=== PATIENT | male | born 1945 | race African-American/Black ===

== ENCOUNTER 2016-12-14 13:56 | Observation (INO) | payer MEDICARE, OTHER ==
[~2016-12-14] VITALS: Ht 188 cm; Wt 101.7 kg
[~2016-12-14 13:56] MED LIST: AMANTADINE100 MG PO; AMLODIPINE5 M1 PO; BACLOFEN 10MG T10 MG PO; DEPAKOTE 250MG250 MG PO; DEPAKOTE250 MG PO; GLIPIZIDE/METFO1 TA1 PO; GLUCOVANCE 1.251 TAB PO; LINZESS145 MCG PO; LISINOPRIL10 MG PO; LISINOPRIL40 MG PO; METOPROLOL25 MG PO; MIRALAX(PO17 GM/1 PA PO; NITROFURANTOIN100 M2 PO; RANITIDINE HCL150 MG PO; RISPERDAL 0.50.5 MG OR; SINEMET 25/1001 TAB PO; TAMSULOSIN HCL0.4 MG PO; VITAMIN B121000 MCG PO; VITAMIN D1000 IU PO; WARFARIN SOD5 MG PO; WARFARIN SODIU7.5 MG PO
[2016-12-14 13:59] VITALS: BP 197/98
--- NOTE | 2016-12-14 14:10 | Emergency Room Report ---
History of Present Illness Time Seen by MD Velázquez Presenting Problem in Triage Pt arrived:Wheelchair Presenting Problem:PT ADVISES AROUND NOON HE STARTED SWEATING, FELT LIKE HE WAS GOING TO PASS OUT AND HAD A FUNY SENSATION IN HIS CHEST THT HE FELT WAS MOVING DOWN. HE ADVISES THIS EPISODE LASTED 15-20 MINS. 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 N Clinical Suspician of Infection? N Mental Status: 1 - Regular (Normal Baseline) Sepsis Risk:Low Sepsis Risk Have you (or family members/close friends) recently traveled outside the [place]? N If Yes, where/when: Have you had exposure to infectious disease within the past month? N TB? Other? Specify: Source patient, family () Exam Limitations no limitations Comment Pt is here in the ER for evaluation c/o weakness. Onset this morning while using commode. states he has been sleeping more over the past few days. No fever. History of remote stroke with left sided weakness. No chest pain, sob, abdominal pain. Pt just started Aricept earlier this morning. Pt is straight cathed twice daily since his CVA. No increase in left sided weakness or other neuro deficit. ALLERGIES Coded Allergies: Hydantoins (01/18/16) Iodine and Iodide Containing Produc (01/19/16) phenytoin (01/18/16) Home Medications Active Scripts Amlodipine Besylate (Amlodipine) 5 MG PO DAILY #30 TAB Ref 2 Prov: 07/19/16 Reported Medications CHOLECALCIFEROL (VITAMIN D3) (Vitamin D3) (Unknown Dose) PO DAILY Divalproex Sodium (Depakote) 500 MG PO BID CARBIDOPA/LEVODOPA (Carbidopa-Levodopa 25-100 Tab) 1 TAB PO QID BACLOFEN (Baclofen) 10 MG PO TID Ranitidine Hcl (Ranitidine 150MG) 150 MG PO BID Risperidone (Risperdal 0.5 Mg Tablet) 0.5 MG OR DAILY GLIPIZIDE/METFORMIN HCL (Glipizide-Metformin 2.5-500 MG) 0.5 TAB PO DAILYP PRN DIABETES Amantadine Hcl (Amantadine) 100 MG PO DAILY WARFARIN SOD (Warfarin 5MG) 4 MG PO DAILY Metoprolol Tartrate (Metoprolol) 25 MG PO BID Lisinopril (Lisinopril 40MG) 40 MG PO DAILY #90 TAB TAMSULOSIN HCL (Tamsulosin HCl) 0.4 MG PO QHS #90 CAP History Medical History General CAD? No Angina: No [place]: No Hypertension? Yes Hyperlipidemia? No CHF? No DVT? No PE? No COPD? No Asthma? No Anemia? No GERD? No Gastric ulcers? No GI Bleed? No Hernia? Yes Thyroid Problems? No Hypothyroidism? No CVA? Yes Seizures? Yes Diabetes? Yes Insulin Dependent: No Insulin Pump: No Home FSBS? Yes Renal Insuffiency? No End Stage Renal Disease? No UTI? Yes Stones? Yes BPH? No GB Disease: No Nephritic Syndrome? No Asplenia? No Hepatitis? No Sickle Cell Disease? No Arthritis? Yes Migraines? No Cataracts? No Glaucoma? No MRSA? No HIV? No TB? No Anxiety? No Depression? No Cancer? No More? No Immunization Hx DT/Tetanus > 10 Years Ago Flu 2015-FSN Pneumonia Received In Past Surgical Hx Previous Surgery?Y BLADDER SURGERY TONSILS BLADDER BIOPSY COLECTOMY Family History Family Hx Diabetes Yes CAD Yes Hypertension Yes Hyperlipidemia Yes Cancer No TB No Social History Smoking Hx Smoker: Never Smoker Tobacco: No Packs/day < 1 Pack Alcohol Alcohol: No Review of Systems All Other Systems Reviewed and Negative Constitutional see HPI, denies chills, diaphoresis, denies fever, malaise, weakness Eyes denies no symptoms reported ENT denies: no symptoms reported. Respiratory denies no symptoms reported Cardiovascular denies no symptoms reported Gastrointestinal denies no symptoms reported Genitourinary denies: no symptoms reported. Musculoskeletal see HPI, other (chronic left hemiparesis) Skin denies no symptoms reported Psychiatric/Neurological other (progressive memory loss) Physical Exam Vital Signs Vital Signs Date Time Temp Pulse Resp B/P Pulse O2 O2 Flow FiO2 Ox Delivery Rate 12/14 1732 98.1 56 18 158/87 98 12/14 1655 97.9 56 18 160/98 98 12/14 1525 52 16 166/100 98 12/14 1359 97.2 54 16 197/98 98 General Appearance WD/WN, no apparent distress Eye Exam - bilateral eye normal exam, bilateral eye PERRL, bilateral eye EOMI Ear, Nose, Throat hearing grossly normal, normal ENT inspection Neck normal inspection, non-tender, supple, full range of motion Respiratory Status Yes: trachea midline. No: respiratory distress. Lung Sounds bilateral: normal breath sounds, lungs clear. 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 No Results/Orders Laboratory Tests 12/14/16 1435: Urine Color YELLOW, Urine Appearance SL CLOUDY, Urine pH 6.0, Ur Specific [place] 1.025, Urine Protein TRACE H, Urine Ketones NEGATIVE, Urine Blood 2+ H , Urine Nitrate POSITIVE H, Urine Bilirubin NEGATIVE, Urine Urobilinogen 0.2, Ur Leukocyte Esterase 3+ H, Urine RBC 10-20, Ur Squamous Epith Cells OCC, Urine Bacteria 4+, Urine Glucose NEGATIVE 12/14/16 1415: TSH 1.60 12/14/16 1415: Sodium 142, Potassium 4.0, Chloride 106, Carbon Dioxide 33 H, BUN 12, Creatinine 0.9, Estimated Creat Clear 109, Estimated GFR (MDRD) 83, Glucose 117 H, Calcium 9.1, Total Bilirubin 0.5, AST 10 L, ALT 21, Alkaline Phosphatase 83, Creatine Kinase 94, CK-MB (CK-2) Rel Index 1.0, CK and CKMB Interp 0.9, Troponin I < 0.02, Total Protein 7.6, Albumin 3.2 L, Globulin 4.4 H, Albumin/Globulin Ratio 0.7 L, PT 23.0 H, INR 2.15 H, WBC 6.8, RBC 4.74, Hgb 14.9, Hct 43.3, MCV 91.4, RDW 14.1, Plt Count 157, MPV 6.3 L, Gran % 64.1, Gran # 4.4, Lymphocytes % 28.6, Monocytes % 6.5, Eosinophils % 0.6, Basophils % 0.2, Lymphocytes # 1.9, Monocytes # 0.4, Eosinophils # 0.0, Basophils # 0.0, PUBS MCHC 34.3, MCH 31.4 H Current Medication Orders Sig/Kamini Start time Last Medication Dose Route Stop Time Status Admin Levofloxacin/Dextrose 150 ML ONCE ONE 12/14 1800 CKDr 12/14 IV 12/14 1929 1758 Sodium Chloride 1,000 ML .Q10H 12/14 1800 AC IV 12/15 0600 Levofloxacin/Dextrose 150 ML .STK-MED ONE 12/14 1756 DC IV Clonidine HCl 0 .STK-MED ONE 12/14 1659 DC .ROUTE Clonidine HCl 0.1 MG ONCE ONE 12/14 1600 DC 12/14 PO 12/14 1601 1700 Sodium Chloride 10 ML PRN PRN 12/14 1415 AC IV 12/15 1404 Orders Procedure Date/time Status DIET-NOTHING BY MOUTH 12/14 D Active CULTURE, BLOOD 12/14 1749 Active LACTIC ACID 12/14 1749 Active PROTHROMBIN TIME 12/14 1551 Complete URINALYSIS/COMPLETE 12/14 1537 Complete THYROID STIMULATING HORMONE 12/14 1537 Complete CULTURE, URINE 12/14 1435 Active ELECTROCARDIOGRAM REQUEST 12/[address] HEAD REQ 12/14 1404 Active IV SALINE LOCK 12/14 1404 Active CBC WITH AUTO DIFF 12/14 1404 Complete CARDIAC ENZYMES 12/14 1404 Complete CHEM 12 PROFILE 12/14 1404 Complete 12 LEAD EKG-[facility] (INITIAL) 12/14 1400 Active 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 CT head CT interpretation by discussed w/radiologist (radiologist report) Comment IMPRESSION: 1. No change from 07/18/2016 with no acute intracranial findings. 2. Atrophy with chronic ischemic changes with an old right cerebellar infarction and asymmetric unilateral atrophy of the right cerebral hemisphere with right lateral ventricle enlargement as before Departure Departure Time of Disposition 1756 Disposition Still a Patient Clinical Impression Primary Impression: Acute urinary tract infection Secondary Impressions: Generalized weakness Condition STABLE Referrals Zay WHITESIDE,A.C. (Family) Discharge Counseling Counseled pt/family regarding diagnosis, test results, Results of work up, diagnosis and care plan discussed with pt and family. They understand. All questions answered. Pt will now be admitted. ED Critical Care Critical Care No at 1800
[2016-12-14 14:25] LABS: HEMOGLOBIN 14.9 g/dL (14.1-18.0); LYMPH # 1.9 K/mm3 (0.7-4.5); LYMPH % 28.6 % (10-50)
--- NOTE | 2016-12-14 14:49 | RADIOLOGY REPORT PS360 ---
CT HEAD W/O CONTRAST HISTORY: Near syncope NEAR SYNCOPE ORDERING PHYSICIAN: PATIENT AGE: 71 years COMPARISON: 07/18/2016 TECHNIQUE: Axial images obtained without contrast. Brain and bone windows reviewed. FINDINGS: Encephalomalacic changes are present in the right inferior cerebellum consistent with an old infarction. There is generalized atrophy with hypoattenuation of periventricular region consistent with ischemic gliotic change from microvascular disease. Asymmetrical enlargement noted of the right lateral ventricle similar to the previous exam consistent with unilateral right atrophy. Patient does have a history of right carotid occlusion. No midline shift, mass effect, intracranial hemorrhage, or hydrocephalus is evident with no significant change compared to the previous exam. No acute calvarial abnormality or sinus air-fluid level or mastoid effusion. IMPRESSION: 1. No change from 07/18/2016 with no acute intracranial findings. 2. Atrophy with chronic ischemic changes with an old right cerebellar infarction and asymmetric unilateral atrophy of the right cerebral hemisphere with right lateral ventricle enlargement as before
[2016-12-14 14:54] LABS: BUN 12 mg/dL (7-18); GFR (ESTIMATED) 83 ML/MIN (>60)
--- NOTE | 2016-12-14 15:28 | RADIOLOGY REPORT PS360 ---
CHEST-AP VIEW ONLY HISTORY: NEAR SYNCOPE ORDERING PHYSICIAN: June SANTIAGO III PATIENT AGE: 71 years COMPARISON: 07/18/2016 FINDINGS: The cardiomediastinal silhouette and pulmonary vascularity are within normal limits. The lungs are clear without infiltrates, suspicious nodules, or pleural effusions. No acute bony abnormalities. IMPRESSION: No acute finding
[2016-12-14 16:41] LABS: URINE BILIRUBIN - DIPSTICK NEGATIVE (NEG); URINE BLOOD 2+ (NEG)
[2016-12-14 16:46] LABS: URINE SQUAMOUS CELLS OCC #/hpf (OCC)
[2016-12-14 18:51] VITALS: BP 172/91
[2016-12-14 19:50] VITALS: BP 172/91
[2016-12-14 20:07] VITALS: BP 149/77
[2016-12-14] MEDS ORDERED: MIRALAX17 GM/PACK PO (20:12)
[2016-12-14] MEDS ORDERED: ARICEPT 5MG TAB5 MG PO (20:15)
[2016-12-14 23:48] VITALS: BP 150/72
[2016-12-15 04:13] VITALS: BP 179/82
[2016-12-15 06:21] LABS: HEMOGLOBIN 14.6 g/dL (14.1-18.0); LYMPH # 2.3 K/mm3 (0.7-4.5); LYMPH % 38.5 % (10-50)
[2016-12-15 06:42] LABS: BUN 9 mg/dL (7-18)
[2016-12-15 06:43] LABS: GFR (ESTIMATED) 74 ML/MIN (>60)
--- NOTE | 2016-12-15 07:31 | Discharge Summary Standard ---
Demographics: Admit date: 12/14/16 Chief complaint: Weakness and fatigue PRIMARY DIAGNOSIS: ACUTE UTI Allergies: Coded Allergies: Hydantoins (01/18/16) Iodine and Iodide Containing Produc (01/19/16) phenytoin (01/18/16) History of present illness: History of present illness: 71-year-old white male with history of previous stroke disease and urinary retention issues to does require intermittent catheterization who came to the emergency room because of weakness. Lab workup and exam workup was unremarkable with the exception of evidence of urinary tract infection and given his weakness and fatigue he was admitted overnight for serial cardiac enzymes and IV antibiotics. This morning he states that he feels much better. Eating breakfast well Past medical history: Family HX Diabetes Yes CAD Yes Hypertension Yes Hyperlipidemia Yes Cancer No TB No Immunization HX DT/Tetanus > 10 Years Ago Flu 2015-FSN Pneumonia Received In Past TB Test in last year Yes Result Negative General CAD? No Angina: No PR: No Hypertension? Yes Hyperlipidemia? No CHF? No DVT? No PE? No COPD? No Asthma? No Anemia? No GERD? No Gastric ulcers? No GI Bleed? No Hernia? Yes Thyroid Problems? No Hypothyroidism? No CVA? Yes Seizures? Yes Diabetes? Yes Insulin Dependent: No Insulin Pump: No Home FSBS? Yes Renal Insuffiency? No UTI? Yes Stones? Yes BPH? No GB Disease: No Nephritic Syndrome? No Asplenia? No Hepatitis? No Sickle Cell Disease? No Arthritis? Yes Migraines? No Cataracts? No Glaucoma? No MRSA? No HIV? No TB? No Anxiety? No Depression? No Cancer? No More? No Past Surgical HX Previous Surgery?Y BLADDER SURGERY TONSILS BLADDER BIOPSY COLECTOMY Current home meds: Active Scripts Amlodipine Besylate (Amlodipine) 5 MG PO DAILY #30 TAB Ref 2 Prov: 07/19/16 Reported Medications CHOLECALCIFEROL (VITAMIN D3) (Vitamin D3) (Unknown Dose) PO DAILY Divalproex Sodium (Depakote) 500 MG PO BID CARBIDOPA/LEVODOPA (Carbidopa-Levodopa 25-100 Tab) 1 TAB PO QID BACLOFEN (Baclofen) 10 MG PO TID Ranitidine Hcl (Ranitidine 150MG) 150 MG PO BID Risperidone (Risperdal 0.5 Mg Tablet) 0.5 MG OR DAILY GLIPIZIDE/METFORMIN HCL (Glipizide-Metformin 2.5-500 MG) 0.5 TAB PO DAILYP PRN DIABETES Amantadine Hcl (Amantadine) 100 MG PO DAILY Polyethylene Glycol 3350 (Miralax) 17 GM PO DAILY 1 Days DONEPEZIL HCL (Aricept 5MG) 5 MG PO QHS #2 WARFARIN SOD (Warfarin 5MG) 4 MG PO DAILY Metoprolol Tartrate (Metoprolol) 25 MG PO BID Lisinopril (Lisinopril 40MG) 40 MG PO DAILY #90 TAB TAMSULOSIN HCL (Tamsulosin HCl) 0.4 MG PO QHS #90 CAP Social Hx: Smoking HX Tobacco No Packs/day < 1 PACK Are you/the child exposed to second-hand smoke: No Alcohol Alcohol: No Hx of Drug Use Drug Use? No Patien't marital status is Patient's support system is poor Review of systems: Constitutional malaise, weakness. Respiratory No: no symptoms reported. Cardiovascular No no symptoms reported Gastrointestinal/Abdominal nausea, poor appetite Genitourinary see HPI. Musculoskeletal No: no symptoms reported. Neurological No: see HPI. Exam: Lab data for last 24 hours: Laboratory Tests 12/15/16 0555: Sodium 141, Potassium 4.1, Chloride 106, Carbon Dioxide 31, BUN 9, Creatinine 1.0, Estimated Creat Clear 97, Estimated GFR (MDRD) 74, Glucose 109 H, Calcium 8.9, Total Bilirubin 0.5, AST 9 L, ALT 17, Alkaline Phosphatase 75, Creatine Kinase 121, CK-MB (CK-2) Rel Index 1.0, CK and CKMB Interp 1.2, Troponin I < 0.02, Total Protein 6.9, Albumin 2.8 L, Globulin 4.1 H, Albumin/Globulin Ratio 0.7 L, WBC 6.0, RBC 4.72, Hgb 14.6, Hct 42.6, MCV 90.2, RDW 13.9, Plt Count 169 , MPV 6.1 L, Gran % 53.8, Gran # 3.2, Lymphocytes % 38.5, Monocytes % 6.6, Eosinophils % 1.1, Basophils % 0.1, Lymphocytes # 2.3, Monocytes # 0.4, Eosinophils # 0.1, Basophils # 0.0, PUBS MCHC 34.2, MCH 30.8 12/14/16 2143: POC Glucose 119 H 12/14/16 1800: Lactic Acid 1.9 12/14/16 1435: Urine Color YELLOW, Urine Appearance SL CLOUDY, Urine pH 6.0, Ur Specific [place] 1.025, Urine Protein TRACE H, Urine Ketones NEGATIVE, Urine Blood 2+ H , Urine Nitrate POSITIVE H, Urine Bilirubin NEGATIVE, Urine Urobilinogen 0.2, Ur Leukocyte Esterase 3+ H, Urine RBC 10-20, Ur Squamous Epith Cells OCC, Urine Bacteria 4+, Urine Glucose NEGATIVE 12/14/16 1415: TSH 1.60 12/14/16 1415: Sodium 142, Potassium 4.0, Chloride 106, Carbon Dioxide 33 H, BUN 12, Creatinine 0.9, Estimated Creat Clear 109, Estimated GFR (MDRD) 83, Glucose 117 H, Calcium 9.1, Total Bilirubin 0.5, AST 10 L, ALT 21, Alkaline Phosphatase 83, Creatine Kinase 94, CK-MB (CK-2) Rel Index 1.0, CK and CKMB Interp 0.9, Troponin I < 0.02, Total Protein 7.6, Albumin 3.2 L, Globulin 4.4 H, Albumin/Globulin Ratio 0.7 L, PT 23.0 H, INR 2.15 H, WBC 6.8, RBC 4.74, Hgb 14.9, Hct 43.3, MCV 91.4, RDW 14.1, Plt Count 157, MPV 6.3 L, Gran % 64.1, Gran # 4.4, Lymphocytes % 28.6, Monocytes % 6.5, Eosinophils % 0.6, Basophils % 0.2, Lymphocytes # 1.9, Monocytes # 0.4, Eosinophils # 0.0, Basophils # 0.0, PUBS MCHC 34.3, MCH 31.4 H Microbiology 12/14 1799 BLOOD: Anaerobic Blood Culture - RECD 12/14 1799 BLOOD: Aerobic Blood Culture - RECD 12/14 1799 BLOOD: Anaerobic Blood Culture - RECD 12/14 1799 BLOOD: Aerobic Blood Culture - RECD 12/14 143 URINE CC: Urine Culture - RES Admission vital signs: 1ST Vital Signs Result Date Time Pulse Ox 98 12/14 1359 B/P 197/98 12/14 1359 Temp 97.2 12/14 1359 Pulse 54 12/14 1359 Resp 16 12/14 1359 O2 Delivery ROOM AIR 12/14 1851 Additional information: Patient is pleasant alert, hemiparesis noted is previous exams. Heart irregular, and her lung dejesus are clear, abdomen soft. No edema noted. No CVA tenderness. Hospital Course Hospital Course: Patient was admitted overnight. Given Levaquin last night and tolerated this well. This morning he is doing much better, he'll be given one more dose of IV Levaquin and discharged with p.o. round. Cultures will be followed up as an outpatient. Medications Medications: Discharge meds are as noted. Follow up Follow up in office in: 4 DAYS with: Chauncey Lynch MD at 0731
[2016-12-15] MEDS ORDERED: LEVAQUIN500 MG PO (07:32)
[2016-12-15 08:00] VITALS: BP 150/78
[2016-12-15 08:03] VITALS: BP 179/82
--- NOTE | 2016-12-15 09:22 | PHARMACY CLINIC NOTE ---
Patient Demographics Patient Demographics Admission date: 12/14/16 Date: 12/15/16 Time: 09 Allergies Coded Allergies: Hydantoins (01/18/16) Iodine and Iodide Containing Produc (01/19/16) phenytoin (01/18/16) HEIGHT- FT: 6 IN: 2.00 [id number] VTE General Information Labs: Laboratory Tests 12/15 12/14 0555 1415 Coagulation PT (9.4 - 11.8 SECONDS) 23.0 H INR (0.9 - 1.1) 2.15 H Hematology Hgb (14.1 - 18.0 g/dL) 14.6 14.9 Hct (42.0 - 52.0 %) 42.6 43.3 Plt Count (142 - 424 K/mm3) 169 157 Disclaimer The following section includes nursing documentation that has been pulled in for pharmacy review. Patient's VTE score: 3 Patient's VTE Risk: LOW RISK Clinical trial participant? No VTE prophylaxis NQF [id number] VTE prophylaxis ordered? Yes Type of prophylaxis/treatment: SUSAN (ON WARFARIN (INR=2.15),NO SUSAN) at 0922
[2016-12-15 11:08] VITALS: BP 179/82
--- OUTSIDE RECORDS SUMMARY | 2016-12-16 17:26 | External Medical Summary Rpt ---
Author Author , Organization [employer] Address Unknown Phone Unavailable Care Team Providers Care Marine Consultant Name Role Phone ALBA STODDARD, Unavailable Unavailable ALBA STODDARD ANTONIO, Unavailable Unavailable [facility] Unavailable Unavailable SERVICE, [facility] Unavailable [facility]available CENTERS, [facility] Un[facility] Unavailable INC, [facility] Unavailable Unavailable CENTER, [facility] Unavailable Unavailable CARE, [facility] Unavailable Unavailable INC, [facility] KIT RICHTER, Unavailable Unavailable KIT RICHTER [facility] Unavailable Unavailable [facility], [facility] Unavailable Unavailable HOLDING, [facility] M E D SUPPLIES, M E D Unavailable Unavailable SUPPLIES YONY BURRIS, Unavailable Unavailable YONY BURRIS STEPHEN A, Unavailable Unavailable ALBA MANLEY MARC D, Unavailable Unavailable FLAKITA LEAL [facility] Unavailable Unavailable ASSOCIATES,[facility], [facility] DAMASO ALMANZAR, Unavailable Unavailable DAMASO ALMANZAR BABATUNDE O, Unavailable Unavailable BARNEY ORTIZ [facility] Unavailable Unavailable [facility], 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 [facility] Unavailable Unavailable AGENCY, [facility] Taurus Vázquez Unavailable Unavailable III , Taurus Vázquez III Mary MATIAS, LEANDRA, Unavailable Unavailable A C Purpose Continuity of Care Document - 08-20-2007 through 2016 Problems Code Diagnosis DOS Provider Status 250.00 250.00 DIAB 01-31-2013 [facility], [facility] Hospital II OR UNSPEC TYPE, NOT UNCNTRLD 401.9 401.9 06-15-2013 Ramandeep HYPERTENSIO [facility] N NOS Hospital 729.81 729.81 01-31-2013 Ramandeep SWELLING OF [facility] LIMB Hospital 780.39 780.39 01-31-2013 Ramandeep OTHER [facility] CONVULSIONS Hospital V12.54 V12.54 01-31-2013 Ramandeep PERSONAL HX [facility] OF TIA,& Hospital CEREBRAL INFARCTION W/OUT RES DEFICITS V58.61 V58.61 01-31-2013 Ramandeep ANTICOAGULA [facility] NTS,LT,[facility] ENT USE V58.69 V58.69 OTH 01-31-2013 Ramandeep MED,LT,[facility] ENT USE Hospital 89471 DIAB W/O 11-11-2009 M E D MENTION SUPPLIES COMP TYPE II/UNS TYPE UNCNTRL 24174 UNSPECIFIED 11-10-2009 [facility] INCONTINENC CENTERS E 4389 UNSPEC LATE 11-07-2009 [facility] EFF HEALTH CEREBRVASC AGENCY DZ DUE CEREBRVASC DZ 7197 DIFFICULTY 11-07-2009 [facility] IN WALKING HEALTH AGENCY 18519 OTHER 11-07-2009 [facility] MALAISE AND HEALTH FATIGUE AGENCY 437 OTHER 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[facility] CEREBROVASC ULAR DISEASE 5950 ACUTE 10-24-2009 [facility] 22425 INCOMPLETE 10-24-2009 [facility] EMPTYING INC 4019 UNSPECIFIED 10-17-2009 [facility] HYPERTENSIO 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 N 496 CHRONIC 10-17-2009 [facility] OBSTRUCTION 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 NEC 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MEL, OSIS OF FLAKITA Penaloza NAIL 7295 PAIN IN 10-07-2009 MEL, SOFT FLAKITA Penaloza TISSUES OF LIMB 74405 DIAB W/O 08-02-2009 [facility] COMP TYPE AMERIC II/UNS NOT HOLDING STATED UNCNTRL 62923 OTH FORM 08-02-2009 [facility] EPILEPSY & AMERIC RECUR HOLDING SEIZUR NO INTRACT EPIL 4011 ESSENTIAL 08-02-2009 [facility] HYPERTENSIO AMERIC N, BENIGN HOLDING 4659 ACUTE URIS 08-02-2009 Mary COATS PSC UNSPECIFIED SITE V5861 LONG-TERM 08-02-2009 Mary MOBLEY (CURRENT) PSC USE OF ANTICOAGULA NTS 5990 URINARY 08-01-2009 [facility] TRACT AMERIC INFECTION HOLDING SITE NOT SPECIFIED 31291 UNSPECIFIED 06-29-2009 [facility] N V0481 NEED 06-01-2009 [facility] VACCINATION &INOCULATIO N FLU 2724 OTHER AND 05-26-2009 [facility] UNSPECIFIED [facility] INC HYPERLIPIDE ROXANNA 52421 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 436 ACUTE BUT 12-03-2008 [facility] ILL-DEFINED [facility] CEREBROVASC ULAR DISEASE 26759 OTHER 11-24-2008 Mary MOBLEY CONVULSIONS PSC E9479 UNSPEC 11-24-2008 LAB [facility] RX/MEDICINA AMERIC L SBST[place] [address] MALIG HTN 10-08-2008 [facility], [facility] FAIL 4589 UNSPECIFIED 10-08-2008 [facility] 4660 ACUTE 10-08-2008 PROST[facility]& BRONCHITIS ORTHOTIC [facility]OC[facility], [facility] 3320 PARALYSIS 10-01-2008 [facility]ENC[facility] 5964 ATONY OF 10-01-2008 [facility] AGENCY V5789 OTHER 10-01-2008 [facility] SPECIFIED HEALTH REHABILITAT AGENCY ION PROCEDURE OTHER 65321 UNSPECIFIED 07-13-2008 [facility] URINE CENTERS 7802 SYNCOPE AND 02-24-2008 Mary MOBLEY COLLAPSE PSC 7804 DIZZINESS 02-23-2008 [facility] GIDDINESS SERVICE V653 DIETARY 01-21-2008 [facility] E AND [facility]TRAL COUNSELING BANK ACCT V7791 SCREENING 11-06-2007 [facility] FOR LIPOID HEALTH DISORDERS CENTRAL BANK ACCT 7806 FEVER & OTH 09-02-2007 [facility] DISTURBANCE S TEMP REG N39.0 URINARY TRACT INFECTION, SITE NOT SPECIFIED R53.1 WEAKNESS Allergies, Adverse Reactions, Alerts Type Drug Allergy Adverse Reaction to Substance Substance Reaction Severity Phenytoin Unknown Unknown Iodide Unknown Unknown Hydantoin Unknown Unknown Medications Na ND Rx Da Fi Fi Am Da Di Ph RX Ph St me C No te ll ll ou ys ag ar # ys at rm s nt no ma ic us Or Da si cy ia de te s n re d Sa 63 06 0 No li 80 -1 ne 70 5- Lo 10 20 ng Fl 07 13 er us 5 h Ac 10 ti ML ve Sy ri ng e HY 00 06 0 No 51 -1 AL 70 5- Lo AZ 90 20 ng IN 12 13 er E 5 20 Ac ti MG ve /M L AL Immunization Name Date Route CVX Reacti Commen Provid Is Given on t er Refuse d IIV3 ROSELLE No VACCIN [facility] 0.5 ML DOSAGE IM USE IIV3 ROSELLE No VACCIN 2008 [facility] 0.5 ML DOSAGE IM USE IIV3 ROSELLE No VACCIN 2007 [facility] 0.5 ML DOSAGE IM USE Vital Signs 01-31-2013 17:42 Name Value Interpretat Reference Comment ion Range Body 97.9 [degF] Temperature BP 95 mm[Hg] Diastolic BP Systolic 133 mm[Hg] Heart 63 /min Rate/Pulse O2% 100 % Respiratory 18 /min Rate 01-31-2013 17:15 Name Value Interpretat Reference Comment ion Range BP 100 mm[Hg] Diastolic BP Systolic 170 mm[Hg] Heart 67 /min Rate/Pulse O2% 98 % Respiratory 20 /min Rate Results Labs Lab Lab Date Result Refere Interp Status Commen Order Detail nces retati t Range on COMPREHENSIVE METABOLIC PANEL (01-31-2013 16:20) Glucose 107 74-106 complet 013 mg/dL ed Bld-mCn 16:20 c BUN 15 7-18 complet Bld-mCn 013 mg/dL ed c 16:20 Creat 1.1 0.8-1.3 complet SerPl-m 013 mg/dL ed Cnc 16:20 ESTIMAT 105 50-200 complet ED 013 ML/MIN ed CREATIN 16:20 INE CLEARAN CE GFR 67 Greater complet (ESTIMA 013 ML/MIN than ed SUSAN) 16:20 60 Sodium 137 136-145 complet SerPl-s 013 mmoL/L ed Cnc 16:20 Potassi 4.6 3.5-5.1 complet um 013 mmoL/L ed SerPl-s 16:20 Cnc Chlorid 107 98-107 complet e 013 mmoL/L ed SerPl-s 16:20 Cnc CO2 25 21.0-32 complet SerPl-s 013 mmoL/L .0 ed Cnc 16:20 Calcium 8.5 8.5-10. complet 013 mg/dL 1 ed SerPl-m 16:20 Cnc Prot 7.0 6.4-8.2 complet SerPl-m 013 gm/dL ed Cnc 16:20 Albumin 2.1 3.4-5.0 complet 013 gm/dL ed SerPl-m 16:20 Cnc Globuli 4.9 1.3-3.2 complet n 013 gm/dL ed Ser-mCn 16:20 c Albumin 2 0.4 UNK 1.1-1.8 complet /Glob 013 ed SerPl-m 16:20 Rto Bilirub 2 0.3 0.2-1.0 complet 013 mg/dL ed SerPl-m 16:20 Cnc AST 8 U/L 15-37 complet SerPl-c 013 ed Cnc 16:20 ALT 26 U/L 30-65 complet SerPl-c 013 ed Cnc 16:20 ALP 94 U/L 50-136 complet SerPl-c 013 ed Cnc 16:20 PROTIME/INR (01-31-2013 15:30) PROTHRO 01-31-2 16.9 9.9-11. complet MBIN 013 SECONDS 6 ed TIME 15:30 INR Bld 01-31-2 1.57 0.9-1.1 complet 013 UNK ed 15:30 CBC with AUTO DIFF (01-31-2013 15:30) WBC # -15-2 6.1 4.8-10. complet Bld 013 K/MM3 8 ed Auto 15:30 RBC # 15-2 5.00 4.6-6.2 complet Bld 013 M/mm3 ed Auto 15:30 Hgb 06-15-2 14.9 14.1-18 complet Bld-mCn 013 g/dL .0 ed c 15:30 Hct Fr 06-15-2 45.4 % 42.0-52 complet Bld 013 .0 ed 15:30 MCV RBC 06-15-2 90.8 fl 82.2-97 complet 013 .8 ed 15:30 MCH RBC -15-2 29.8 pg 27-31.2 complet Qn 013 ed Auto 15:30 MEAN 06-15-2 32.9 31.8-35 complet CORPUSC 013 g/dl .4 ed ULAR 15:30 HGB CONC RDW RBC 06-15-2 13.9 % 11.5-17 complet Auto 013 .5 ed 15:30 Platele 06-15-2 197 142-424 complet t Bld 013 K/mm3 ed Ql 15:30 Manual MEAN 06-15-2 7.7 fl 7.4-10. complet PLATELE 013 4 ed T 15:30 VOLUME Granulo 06-15-2 50.3 % 37.0-80 complet cytes 013 .0 ed Fr Bld 15:30 Auto LYMPH % 06-15-2 39.8 % 10-50 complet 013 ed 15:30 Monocyt 06-15-2 8.6 % 1.7-9.3 complet es Fr 013 ed Bld 15:30 Auto Eosinop 06-15-2 1.1 % 0.1-12. complet hil Fr 013 0 ed Bld 15:30 Auto Basophi 06-15-2 0.2 % 0.1-2.0 complet ls Fr 013 ed Bld 15:30 Auto Granulo 06-15-2 3.1 1.3-8.0 complet cytes # 013 K/mm3 ed Bld 15:30 Auto Lymphoc 06-15-2 2.4 0.7-4.5 complet ytes Fr 013 K/mm3 ed Bld 15:30 Auto Monocyt 06-15-2 0.5 0.1-1.0 complet es # 013 K/mm3 ed Bld 15:30 Auto Eosinop 06-15-2 0.1 0.0-0.4 complet hil # 013 K/mm3 ed Bld 15:30 Auto Basophi 06-15-2 0.0 0-0.2 complet ls # 013 K/MM3 ed Bld 15:30 Auto Procedures Procedure DOS Code Location Performer Comment DAY CARE S5100 [facility] [place] ADULT; ELDER ELDER PER 15 CARE CARE MINUTES DAY CARE S5100 [facility] [place] ADULT; ELDER ELDER PER 15 CARE CARE MINUTES DAY CARE S5100 [facility] [place] ADULT; ELDER ELDER PER 15 CARE CARE MINUTES BLD GLU A4253 M E D M E D TEST/REAG 0 SUPPLIES SUPPLIES T STRIPS HOME BLD GLU MON-50 LANCETS A4259 M E D M E D PER BOX 0 SUPPLIES SUPPLIES OF 100 DAY CARE S5100 [facility] [place] ADULT; ELDER ELDER PER 15 CARE CARE MINUTES INTERMIT A4351 [facility] URIN 0 [facility] CATH; E CENTERS E CENTERS STRAIGHT TIP W/WO COAT EA DAY CARE S5100 [facility] [place] ADULT; ELDER ELDER PER 15 CARE CARE MINUTES DAY CARE S5100 [facility] [place] ADULT; ELDER ELDER PER 15 CARE CARE MINUTES ADLT SZD T4528 [facility] HOME INCONT HEALTH HEALTH PROD AGENCY AGENCY UNDWEAR XTRA LG EA INCONTINE T4541 [facility] NCE 0 HOME HOME PRODUCT HEALTH HEALTH DISPOSABL AGENCY AGENCY E UNDPAD LARGE EA DAY CARE S5100 [facility] [place] ADULT; ELDER ELDER PER 15 CARE CARE MINUTES DAY CARE S5100 [facility] 0 [place] ADULT; ELDER ELDER PER 15 CARE CARE MINUTES DAY CARE S5100 [facility] 0 [place] ADULT; ELDER ELDER PER 15 CARE CARE MINUTES DAY CARE S5100 [facility] [place] ADULT; ELDER ELDER PER 15 CARE CARE MINUTES DAY CARE S5100 [facility] 0 [place] ADULT; ELDER ELDER PER 15 CARE CARE MINUTES CULTURE 39843 [facility] BACTERIAL 0 [facility] INC INC QUANTTATI VE COLONY COUNT URINE CULTURE 21738 [facility] BCT 0 [facility] ISOL&PRSM INC INC PTV ID ISOLATE EA URINE SUSCEPTIB 63462 [facility] LTY STDY 0 [facility] ANTIMICRB INC INC IAL MICRO/AGA R DILUTJ DAY CARE S5100 [facility] 0 [place] ADULT; ELDER ELDER PER 15 CARE CARE MINUTES DAY CARE S5100 [facility] 0 [place] ADULT; ELDER ELDER PER 15 CARE CARE MINUTES DAY CARE S5100 [facility] 0 [place] ADULT; ELDER ELDER PER 15 CARE CARE MINUTES DAY CARE S5100 [facility] 0 [place] ADULT; ELDER ELDER PER 15 CARE CARE MINUTES DAY CARE S5100 [facility] 0 [place] ADULT; ELDER ELDER PER 15 CARE CARE MINUTES DAY CARE S5100 [facility] 0 [place] ADULT; ELDER ELDER PER 15 CARE CARE MINUTES DAY CARE S5100 [facility] 0 [place] ADULT; ELDER ELDER PER 15 CARE CARE MINUTES DAY CARE S5100 [facility] 0 [place] ADULT; ELDER ELDER PER 15 CARE CARE MINUTES INTERMIT A4351 [facility] OUMARWILLY SENA 0 [facility]; E CENTERS E CENTERS STRAIGHT TIP W/WO COAT DAY CARE S5100 [facility] 0 [place] ADULT; ELDER ELDER PER 15 CARE CARE MINUTES DAY CARE S5100 [facility] 0 [place] ADULT; ELDER ELDER PER 15 CARE CARE MINUTES DAY CARE S5100 [facility] 0 [place] ADULT; ELDER ELDER PER 15 CARE CARE MINUTES DAY CARE S5100 [facility] 0 [place] ADULT; ELDER ELDER PER 15 CARE CARE MINUTES DAY CARE S5100 [facility] 0 [place] ADULT; ELDER ELDER PER 15 CARE CARE MINUTES DAY CARE S5100 [facility] 0 [place] ADULT; ELDER ELDER PER 15 CARE CARE MINUTES ADLT SZD T4528 [facility] HOME HOME INCONT HEALTH HEALTH PROD AGENCY AGENCY UNDWEAR XTRA LG EA DAY CARE S[address] ADULT; ELDER ELDER PER 15 CARE CARE MINUTES DAY CARE S[address] ADULT; ELDER ELDER PER 15 CARE CARE MINUTES DAY CARE S[address] ADULT; ELDER ELDER PER 15 CARE CARE MINUTES DAY CARE S[address] ADULT; ELDER ELDER PER 15 CARE CARE MINUTES DAY CARE S[address] ADULT; ELDER ELDER PER 15 CARE CARE MINUTES DAY CARE S[address] ADULT; ELDER ELDER PER 15 CARE CARE MINUTES DRUG 16592 [facility] ASSAY 9 AMERIC AMERIC VALPROIC HOLDING HOLDING DIPROPYLA CETIC ACID TOTAL INJ J0702 Mary MANLEY BETAMETHA 9 LEANDRA Hernandez SONE PSC ACETATE & PHOSPHATE 3 MG BASIC 57000 [facility] METABOLIC 9 AMERIC AMERIC PANEL HOLDING HOLDING CALCIUM TOTAL GLUCOSE 65251 Mary MANLEY QUANTITAT 9 LEANDRA Hernandez TAYLER BLOOD PSC XCPT REAGENT STRIP HEMOGLOBI 46604 Uriel GALARZA 9 LEANDRA Hernandez GLYCOSYLA PSC SUSAN A1C COLLECTIO 16470 Uriel GALARZA VENOUS 9 LEANDRA Hernandez BLOOD PSC VENIPUNCT URE IM ADM 96533 JESS GALARZAQ ID 9 LEANDRA Hernandez SUBQ/IM PSC NJXS 1 VACCINE PROTHROMB 88263 Mary MANLEY, IN TIME 9 LEANDRA Hernandez PSC SUSCEPTIB 24273 [facility] LTY STDY 9 AMERIC AMERIC ANTIMICRB HOLDING HOLDING IAL MICRO/AGA R DILUTJ CULTURE 40656 [facility] BCT 9 AMERIC AMERIC ISOL&PRSM HOLDING HOLDING PTV ID ISOLATE EA URINE CULTURE 22431 [facility] BACTERIAL 9 AMERIC AMERIC HOLDING HOLDING QUANTTATI VE COLONY COUNT URINE CUL BACT 99042 [facility] AEROBIC 9 AMERIC AMERIC ADDL HOLDING HOLDING METHS DEFINITIV E EA ISOL URINLS 36080 PHYLICIA MCGREGOR 9 LEANDRA PETIT STICK/TAB PSC LET REAGNT NON-AUTO MICRSCPY DAY CARE S[address] ADULT; ELDER ELDER PER 15 CARE CARE MINUTES DAY CARE S[address] ADULT; ELDER ELDER PER 15 CARE CARE MINUTES DAY CARE S[address] ADULT; ELDER ELDER PER 15 CARE CARE MINUTES DAY CARE S[address] ADULT; ELDER ELDER PER 15 CARE CARE MINUTES DAY CARE S[address] ADULT; ELDER ELDER PER 15 CARE CARE MINUTES ADLT SZD T4528 [facility] PROD AGENCY AGENCY UNDWEAR XTRA LG EA DEBRIDEME 30489 PAWSAT, PAWSAT, NT NAIL 9 FLAKITA Penaloza ANY METHOD 6/> DAY CARE S[address] ADULT; ELDER ELDER PER 15 CARE CARE MINUTES DAY CARE S[address] ADULT; ELDER ELDER PER 15 CARE CARE MINUTES INTERMIT A4351 [facility] SENA 9 [facility]ATH; E CENTERS E CENTERS STRAIGHT TIP W/WO COAT EA DAY CARE S[address] ADULT; ELDER ELDER PER 15 CARE CARE MINUTES DAY CARE S[address] ADULT; ELDER ELDER PER 15 CARE CARE MINUTES DAY CARE S[address] ADULT; ELDER ELDER PER 15 CARE CARE MINUTES DAY CARE S[address] ADULT; ELDER ELDER PER 15 CARE CARE MINUTES DAY CARE S[address] ADULT; ELDER ELDER PER 15 CARE CARE MINUTES DAY CARE S[address] ADULT; ELDER ELDER PER 15 CARE CARE MINUTES DAY CARE S[address] ADULT; ELDER ELDER PER 15 CARE CARE MINUTES DAY CARE S5100 [facility] 9 [place] ADULT; ELDER ELDER PER 15 CARE CARE MINUTES DAY CARE S5100 [facility] 9 [place] ADULT; ELDER ELDER PER 15 CARE CARE MINUTES DAY CARE S5100 [facility] 9 [place] ADULT; ELDER ELDER PER 15 CARE CARE MINUTES DAY CARE S5100 [facility] 9 [place] ADULT; ELDER ELDER PER 15 CARE CARE MINUTES DAY CARE S5100 [facility] 9 [place] ADULT; ELDER ELDER PER 15 CARE CARE MINUTES DAY CARE S5100 [facility] 9 [place] ADULT; ELDER ELDER PER 15 CARE CARE MINUTES DAY CARE S5100 [facility] 9 [place] ADULT; ELDER ELDER PER 15 CARE CARE MINUTES INCONTINE T4541 [facility] NCE 9 HOME HOME PRODUCT HEALTH HEALTH DISPOSABL AGENCY AGENCY E UNDPAD LARGE EA DAY CARE S5100 [facility] 9 [place] ADULT; ELDER ELDER PER 15 CARE CARE MINUTES DAY CARE S5100 [facility] 9 [place] ADULT; ELDER ELDER PER 15 CARE CARE MINUTES IIV3 96510 [facility] VACCINE 9 [facility] CENTER VIRUS 0.5 ML DOSAGE IM USE ADMINISTR G0008 [facility] ATION OF 9 [facility] CENTER VIRUS VACCINE ADLT SZD T4528 [facility] 9 HOME HOME INCONT HEALTH HEALTH PROD AGENCY AGENCY UNDWEAR XTRA LG EA DAY CARE S5100 [facility] 9 [place] ADULT; ELDER ELDER PER 15 CARE CARE MINUTES DAY CARE S5100 [facility] [address] [place] [address] ADULT; ELDER ELDER PER 15 CARE CARE MINUTES BASIC 52638 [facility] METABOLIC 9 [facility] PANEL INC INC CALCIUM TOTAL INTERMIT A4351 [facility] SENA 9 [facility]; E CENTERS E CENTERS STRAIGHT TIP W/WO COAT EA COLLECTIO 01976 [facility] N VENOUS 9 [facility] [place] [address] [facility] THYROID 9 [facility] STIMULATI INC INC NG HORMONE TSH DAY CARE S5100 [facility] [address] ADULT; ELDER ELDER PER 15 CARE CARE MINUTES DAY CARE S5100 [facility] [address] ADULT; ELDER ELDER PER 15 CARE CARE MINUTES DAY CARE S5100 [facility] [address] ADULT; ELDER ELDER PER 15 CARE CARE MINUTES DAY CARE S[address] ADULT; ELDER ELDER PER 15 CARE CARE MINUTES DAY CARE S[address] ADULT; ELDER ELDER PER 15 CARE CARE MINUTES DAY CARE S[address] ADULT; ELDER ELDER PER 15 CARE CARE MINUTES DAY CARE S[address] ADULT; ELDER ELDER PER 15 CARE CARE MINUTES DAY CARE S[address] [address] ADULT; ELDER ELDER PER 15 CARE CARE MINUTES IIV3 17249 [facility] VACCINE 9 [facility] CENTER VIRUS 0.5 ML DOSAGE IM USE NORMAL A4256 M E D M E D LOW AND 9 SUPPLIES SUPPLIES HIGH CALIBRATO R SOLUTION/ CHIPS LANCETS A4259 M E D M E D PER BOX 9 SUPPLIES SUPPLIES OF 100 BLD GLU A4253 M E D M E D TEST/REAG 9 SUPPLIES SUPPLIES T STRIPS HOME BLD GLU MON-50 ADMINISTR G0008 [facility] ATION OF 9 [facility] IN[facility] CENTER VIRUS VACCINE REPL CRUZ A4235 M E D M E D LITHIUM 9 SUPPLIES SUPPLIES MED NECES SHERYL BG MON OWN PT EA SPRING-PO A4258 M E D M E D WERED 9 SUPPLIES SUPPLIES DEVICE FOR LANCET EACH DAY CARE S5100 [facility] RAM[facility] [address] ADULT; ELDER ELDER PER 15 CARE CARE MINUTES DAY CARE S5100 [facility] RAM[facility] [address] ADULT; ELDER ELDER PER 15 CARE CARE MINUTES DAY CARE S[address] ADULT; ELDER ELDER PER 15 CARE CARE MINUTES DAY CARE S5100 [place] [address] [place] ADULT; ELDER ELDER PER 15 CARE CARE MINUTES DAY CARE S5100 [facility] [address] ADULT; ELDER ELDER PER 15 CARE CARE MINUTES DAY CARE S[address] ADULT; ELDER ELDER PER 15 CARE CARE MINUTES DAY CARE S5100 [address] [address] ADULT; ELDER ELDER PER 15 CARE CARE MINUTES DAY CARE S[address] ADULT; ELDER ELDER PER 15 CARE CARE MINUTES DAY CARE S5100 [address] ADULT; ELDER ELDER PER 15 CARE CARE MINUTES DAY CARE S[address] ADULT; ELDER ELDER PER 15 CARE CARE MINUTES INTERMIT [id number] [facility]; E CENTERS E CENTERS STRAIGHT TIP W/WO COAT EA DAY CARE S5100 [address] [address] ADULT; ELDER ELDER PER 15 CARE CARE MINUTES DAY CARE S5100 [address] [address] ADULT; ELDER ELDER PER 15 CARE CARE MINUTES DAY CARE S5100 [address] [address] ADULT; ELDER ELDER PER 15 CARE CARE MINUTES DAY CARE S[address] ADULT; ELDER ELDER PER 15 CARE CARE MINUTES DAY CARE [facility] [facility] [address] ADULT; ELDER ELDER PER 15 CARE CARE MINUTES ADLT SZD [id number] [facility] PROD AGENCY AGENCY UNDWEAR XTRA LG EA DAY CARE S5100 RAMANDEEP RAMANDEEP Zzish [address] [place] [address] ADULT; ELDER ELDER PER 15 CARE CARE MINUTES DAY CARE S5100 [address] ADULT; ELDER ELDER PER 15 CARE CARE MINUTES DAY CARE S[address] ADULT; ELDER ELDER PER 15 CARE CARE MINUTES OPHTH 59480 ROBER, ROBER, MEDICAL 9 KIT A KIT A XM&JOELLE COMPRHNSV ESTAB PT 1/> DAY CARE S5100 RAMANDEEP [place] [address] ADULT; ELDER ELDER PER 15 CARE CARE MINUTES DAY CARE S5100 [place] [address] ADULT; ELDER ELDER PER 15 CARE CARE MINUTES DAY CARE S5100 [place] [address] ADULT; ELDER ELDER PER 15 CARE CARE MINUTES DAY CARE S5100 [place] [address] ADULT; ELDER ELDER PER 15 CARE CARE MINUTES DAY CARE S5100 [place] [address] ADULT; ELDER ELDER PER 15 CARE CARE MINUTES BASIC [id number] RAMANDEEP [place] METABOLIC 9 [facility] CALCIUM TOTAL COLLECTIO [id number] RAMANDEEP [place] N VENOUS 9 [facility] [place] [id number] RAMANDEEP [place] RETROPERI 9 [facility] TONEAL INC INC REAL TIME W/IMAGE COMPLETE DAY CARE S5100 RAMANDEEP [place] [address] ADULT; ELDER ELDER PER 15 CARE CARE MINUTES DAY CARE S5100 RAMAN[place] [address] ADULT; ELDER ELDER PER 15 CARE CARE MINUTES DAY CARE S5100 RAMAN[place]EP RAMANDEEP [address] ADULT; ELDER ELDER PER 15 CARE CARE MINUTES DAY CARE S5100 RAMANDEEP [place] [address] ADULT; ELDER ELDER PER 15 CARE CARE MINUTES DAY CARE S5100 [place]EE [place] [address] ADULT; ELDER ELDER PER 15 CARE CARE MINUTES DAY CARE S5100 RAMANDEEP [place] [address] ADULT; ELDER ELDER PER 15 CARE CARE MINUTES DAY CARE S5100 [place]DEE[place]EE [place] [address] ADULT; ELDER ELDER PER 15 CARE CARE MINUTES DAY CARE S5100 [place]ANEDE[place]HEREE [place] [address] ADULT; ELDER ELDER PER 15 CARE CARE MINUTES DAY CARE S5100 RAMANDEEP RAMANDEEP [address] ADULT; ELDER ELDER PER 15 CARE CARE MINUTES DAY CARE S5100 RAMANDEEP RAMANDEEP [address] ADULT; ELDER ELDER PER 15 CARE CARE MINUTES DAY CARE S5100 RAMANDEEPSHEREE SABILLON [address] ADULT; ELDER ELDER PER 15 CARE CARE MINUTES DIAB ONLY [id number] [facility] CENTRAL FIT CSTM 9 BRACE BRACE PREP&SPL PROSTH PROSTH SHOE MX INC INC DNSITY INSRT ADD LW [id number] [facility] EXT 9 BRACE BRACE VARUS/TARI PROSTH PROSTH ROBERTA WILMER INC INC STRAP PAD/LINE PAD TRANS L3620 [facility] ORTHOS 1 9 BRACE BRACE SHOE-ANOT PROSTH PROSTH HER SLD INC INC STIRRUP EXISTING REPAIR L4205 [facility] ORTHOTIC 9 BRACE BRACE DEVC PROSTH PROSTH LABOR INC INC COMPONENT PER 15 MIN DAY CARE S5100 [address] ADULT; ELDER ELDER PER 15 CARE CARE MINUTES DAY CARE S5100 [address] ADULT; ELDER ELDER PER 15 CARE CARE MINUTES DAY CARE S5100 [address] ADULT; ELDER ELDER PER 15 CARE CARE MINUTES DAY CARE S5100 [address] ADULT; ELDER ELDER PER 15 CARE CARE MINUTES DAY CARE S5[address] ADULT; ELDER ELDER PER 15 CARE CARE MINUTES ADLT SZD T4528 [facility] HOME HOME [facility] HEALTH PROD AGENCY AGENCY UNDWEAR XTRA LG EA DAY CARE S5[address] ADULT; ELDER ELDER PER 15 CARE CARE MINUTES INTERMIT A4351 [facility]IN [facility]; E CENTERS E CENTERS STRAIGHT TIP W/WO COAT EA URINLS 73606 A C SINDHU, DIP 9 LEANDRA Hernandez STICK/TAB PSC LET REAGNT NON-AUTO MICRSCPY CULTURE 87762 LAB ANIK[facility] LAB ANIKA BACTERIAL 9 [employer]IC AMER[employer] HOLDING HOLDING QUANTTATI VE COLONY COUNT URINE DAY CARE S5[address] ADULT; ELDER ELDER PER 15 CARE CARE MINUTES DAY CARE S5100 [address] ADULT; ELDER ELDER PER 15 CARE CARE MINUTES DAY CARE S5100 [address] ADULT; ELDER ELDER PER 15 CARE CARE MINUTES DAY CARE S5[address] ADULT; ELDER ELDER PER 15 CARE CARE MINUTES CULTURE 09568 LAB ANIK[facility] LAB ANIKA BACTERIAL 9 [employer]IC [employer] HOLDING HOLDING QUANTTATI VE COLONY COUNT URINE CULTURE 93812 LAB ANIKA LAB ANIKA BCT 9 AMERIC AMERIC ISOL&PRSM HOLDING HOLDING PTV ID ISOLATE EA URINE CUL BACT 00935 LAB ANIK[facility] LAB ANIKA AEROBIC 9 AMERIC AMERIC ADDL HOLDING HOLDING METHS DEFINITIV E EA ISOL SUSCEPTIB 22124 LAB ANIKA LAB ANIKA LTY STDY 9 AMERIC AMERIC ANTIMICRB HOLDING HOLDING IAL MICRO/AGA R DILUTJ URINLS 44958 A C PHYLICIA ALMANZAR 9 LEANDRA WHITESIDE DAMASO STICK/TAB PSC LET REAGNT NON-AUTO MICRSCPY DAY CARE S[address] ADULT; ELDER ELDER PER 15 CARE CARE MINUTES DAY CARE S5[address] ADULT; ELDER ELDER PER 15 CARE CARE MINUTES DAY CARE S5[address] ADULT; ELDER ELDER PER 15 CARE CARE MINUTES DAY CARE S5[address] ADULT; ELDER ELDER PER 15 CARE CARE MINUTES DAY CARE S5[address] ADULT; ELDER ELDER PER 15 CARE CARE MINUTES DAY CARE S5[address] ADULT; ELDER ELDER PER 15 CARE CARE MINUTES DAY CARE S5[address] ADULT; ELDER ELDER PER 15 CARE CARE MINUTES DAY CARE S5[address] ADULT; ELDER ELDER PER 15 CARE CARE MINUTES DAY CARE S5[address] ADULT; ELDER ELDER PER 15 CARE CARE MINUTES INTERMIT A4351 OUMAR OUMAR URIN 9 [facility]ATH; E CENTERS E CENTERS STRAIGHT TIP W/WO COAT EA DAY CARE S5[address] ADULT; ELDER ELDER PER 15 CARE CARE MINUTES DAY CARE S5[address] ADULT; ELDER ELDER PER 15 CARE CARE MINUTES DAY CARE S5[address] ADULT; ELDER ELDER PER 15 CARE CARE MINUTES DAY CARE S5100 [employer] [address] [place] [address] ADULT; ELDER ELDER PER 15 CARE CARE MINUTES DAY CARE S5100 [employer] [address] [place] [address] ADULT; ELDER ELDER PER 15 CARE CARE MINUTES DAY CARE S5100 [employer] [address] [place] [address] ADULT; ELDER ELDER PER 15 CARE CARE MINUTES ADLT SZD T4528 [facility] 9 HOME HOME [facility] HEALTH PROD AGENCY AGENCY UNDWEAR XTRA LG EA DAY CARE S5100 [employer] [address] [place] [address] ADULT; ELDER ELDER PER 15 CARE CARE MINUTES DAY CARE S5100 [employer] [address] [place] [address] ADULT; ELDER ELDER PER 15 CARE CARE MINUTES DAY CARE S5100 [employer] [address] [place] [address] ADULT; ELDER ELDER PER 15 CARE CARE MINUTES DAY CARE S[address] [employer] [address] [place] [address] ADULT; ELDER ELDER PER 15 CARE CARE MINUTES DAY CARE S[address] [employer] [address] [place] [address] ADULT; ELDER ELDER PER 15 CARE CARE MINUTES DAY CARE S[address] [employer] [address] [place] [address] ADULT; ELDER ELDER PER 15 CARE CARE MINUTES DAY CARE S[address] [employer] [address] [place] [address] ADULT; ELDER ELDER PER 15 CARE CARE MINUTES DAY CARE S[address] [employer] [address] [place] [address] ADULT; ELDER ELDER PER 15 CARE CARE MINUTES DAY CARE S[address] [employer] [address] [place] [address] ADULT; ELDER ELDER PER 15 CARE CARE MINUTES DAY CARE S[address] [employer] [address] [place] [address] ADULT; ELDER ELDER PER 15 CARE CARE MINUTES DAY CARE S[address] [employer] [address] [place] [address] ADULT; ELDER ELDER PER 15 CARE CARE MINUTES DAY CARE S[address] [employer] [address] [place] [address] ADULT; ELDER ELDER PER 15 CARE CARE MINUTES DAY CARE S5100 [employer] [address] [place] [address] ADULT; ELDER ELDER PER 15 CARE CARE MINUTES DAY CARE S5100 [employer] [address] [place] [address] ADULT; ELDER ELDER PER 15 CARE CARE MINUTES DAY CARE S[address] [employer] [address] [place] [address] ADULT; ELDER ELDER PER 15 CARE CARE MINUTES DAY CARE S5100 RAMANDEEP RAMANDEEP [address] ADULT; ELDER ELDER PER 15 CARE CARE MINUTES DAY CARE S5100 RAMANDEEP RAMANDEEP [address] ADULT; ELDER ELDER PER 15 CARE CARE MINUTES DAY CARE S5100 RAMANDEEP RAMANDEEP [address] ADULT; ELDER ELDER PER 15 CARE CARE MINUTES DAY CARE S5100 RAMANDEEP RAMANDEEP [address] ADULT; ELDER ELDER PER 15 CARE CARE MINUTES TRAPEZE E0940 [facility] TOPETE BAR 9 HOME MED HOME MED FREESTAND EQUIP. EQUIP. [facility] COMPLETE WITH [facility] BAR HOS BED E0260 YOSELYN TOPETE SEMI-ELEC 9 HOME MED HOME MED W/ANY EQUIP. EQUIP. TYPE SIDE [facility] RAIL W/MATTRSS DAY CARE S5100 RAMANDEEP RAMANDEEP [address] ADULT; ELDER ELDER PER 15 CARE CARE MINUTES DAY CARE S[address] ADULT; ELDER ELDER PER 15 CARE CARE MINUTES DAY CARE S[address] ADULT; ELDER ELDER PER 15 CARE CARE MINUTES DAY CARE S[address] ADULT; ELDER ELDER PER 15 CARE CARE MINUTES DAY CARE S5[address] ADULT; ELDER ELDER PER 15 CARE CARE MINUTES DAY CARE S5100 [address] ADULT; ELDER ELDER PER 15 CARE CARE MINUTES COLLECTIO 54144 Mary HANDY N VENOUS 9 LEANDRA Messer BLOOD PSC VENIPUNCT URE PROTHROMB 80743 Mary HANDY IN TIME 9 LEANDRA Messer PSC BASIC 17117 LAB AN[facility] LAB [facility] METABOLIC 9 AMERIC AMERIC PANEL HOLDING HOLDING CALCIUM TOTAL DRUG 83480 LAB ANIK[facility] LAB ANIK[facility] ASSAY 9 AMERIC AMERIC VALPROIC HOLDING HOLDING DIPROPYLA CETIC ACID TOTAL ADLT SZD T4528 [facility] HOME HOME [facility] HEALTH PROD AGENCY AGENCY UNDWEAR XTRA LG EA DAY CARE S[address] ADULT; ELDER ELDER PER 15 CARE CARE MINUTES DAY CARE S5[address] ADULT; ELDER ELDER PER 15 CARE CARE MINUTES DAY CARE S5[address] ADULT; ELDER ELDER PER 15 CARE CARE MINUTES DAY CARE S5[address] ADULT; ELDER ELDER PER 15 CARE CARE MINUTES URINLS 70716 A Ayde MOBLEY, A DIP 9 LEANDRA WHITESIDE C STICK/TAB PSC LET REAGNT NON-AUTO MICRSCPY INCONTINE T4541 [facility] NCE 9 HOME HOME [facility] DISPOSABL AGENCY AGENCY E UNDPAD LARGE EA DAY CARE S[address] ADULT; ELDER ELDER PER 15 CARE CARE MINUTES DAY CARE S5[address] ADULT; ELDER ELDER PER 15 CARE CARE MINUTES DAY CARE S[address] ADULT; ELDER ELDER PER 15 CARE CARE MINUTES DAY CARE S[address] ADULT; ELDER ELDER PER 15 CARE CARE MINUTES TRAPEZE E0940 Y[facility] SCHROEDER 9 HOME MED HOME MED FREESTAND EQUIP. EQUIP. ING [facility] COMPLETE WITH [facility] HOS BED E0260 YOSELYN TOPETE SEMI-ELEC 9 HOME MED HOME MED W/ANY EQUIP. EQUIP. TYPE SIDE [facility] RAIL W/MATTRSS DAY CARE S[address] ADULT; ELDER ELDER PER 15 CARE CARE MINUTES DAY CARE S[address] ADULT; ELDER ELDER PER 15 CARE CARE MINUTES DAY CARE S5[address] ADULT; ELDER ELDER PER 15 CARE CARE MINUTES DAY CARE S[address] ADULT; ELDER ELDER PER 15 CARE CARE MINUTES DAY CARE S5[address] ADULT; ELDER ELDER PER 15 CARE CARE MINUTES DAY CARE S5[address] ADULT; ELDER ELDER PER 15 CARE CARE MINUTES DAY CARE S5[address] ADULT; ELDER ELDER PER 15 CARE CARE MINUTES DAY CARE S5[address] ADULT; ELDER ELDER PER 15 CARE CARE MINUTES DAY CARE S5[address] ADULT; ELDER ELDER PER 15 CARE CARE MINUTES DAY CARE S[address] ADULT; ELDER ELDER PER 15 CARE CARE MINUTES DAY CARE S[address] ADULT; ELDER ELDER PER 15 CARE CARE MINUTES SUSCEPTIB 29259 LAB ANIKA LAB ANIKA LTY STDY 9 AMERIC AMERIC ANTIMICRB HOLDING HOLDING IAL MICRO/AGA R DILUTJ CULTURE 73176 LAB ANIKA LAB ANIKA BCT 9 AMERIC AMERIC ISOL&PRSM HOLDING HOLDING PTV ID ISOLATE EA URINE CUL BACT 84429 LAB ANIKA LAB ANIKA AEROBIC 9 AMERIC AMERIC ADDL HOLDING HOLDING METHS DEFINITIV E EA ISOL CULTURE 50095 LAB ANIKA LAB ANIKA BACTERIAL 9 AMERIC AMERIC HOLDING HOLDING QUANTTATI VE COLONY COUNT URINE URINLS 11520 A C LEANDRA, A DIP 9 LEANDRA WHITESIDE C STICK/TAB PSC LET REAGNT NON-AUTO MICRSCPY DAY CARE S[address] ADULT; ELDER ELDER PER 15 CARE CARE MINUTES DAY CARE S[address] ADULT; ELDER ELDER PER 15 CARE CARE MINUTES DAY CARE S[address] ADULT; ELDER ELDER PER 15 CARE CARE MINUTES DAY CARE S[address] ADULT; ELDER ELDER PER 15 CARE CARE MINUTES CERVICAL L0172 PROSTHETI PROSTHETI COLLAR 9 C&ORTHOTI C&ORTHOTI SEMI-RIGI C C D FOAM ASSOCIATE ASSOCIATE TWO Delight STable8 S,LLC PREFAB DAY CARE S[address] ADULT; ELDER ELDER PER 15 CARE CARE MINUTES DAY CARE S[address] ADULT; ELDER ELDER PER 15 CARE CARE MINUTES TRAPEZE E0940 YOSELYN SCHROEDER 9 HOME MED HOME MED FREESTAND EQUIP. EQUIP. [facility] COMPLETE WITH [facility] HOS BED E0260 YOSELYN TOPETE SEMI-ELEC 9 HOME MED HOME MED W/ANY EQUIP. EQUIP. TYPE SIDE [facility] RAIL W/MATTRSS ADLT SZD T4528 [facility] 9 HOME HOME INCONT HEALTH HEALTH PROD AGENCY AGENCY EMIL XTRA LG EA DAY CARE S[address] ADULT; ELDER ELDER PER 15 CARE CARE MINUTES DAY CARE S[address] ADULT; ELDER ELDER PER 15 CARE CARE MINUTES DAY CARE S5[address] ADULT; ELDER ELDER PER 15 CARE CARE MINUTES DAY CARE S5[address] ADULT; ELDER ELDER PER 15 CARE CARE MINUTES DAY CARE S[address] ADULT; ELDER ELDER PER 15 CARE CARE MINUTES URINLS 76288 A Ayde MOBLEY, Mary DIP 9 LEANDRA Messer STICK/TAB PSC LET REAGNT NON-AUTO MICRSCPY INTERMIT A4351 [facility]AR URIN 9 [facility]; E CENTERS E CENTERS STRAIGHT TIP W/WO COAT EA DAY CARE S[address] ADULT; ELDER ELDER PER 15 CARE CARE MINUTES DAY CARE S5[address] ADULT; ELDER ELDER PER 15 CARE CARE MINUTES DAY CARE S5[address] ADULT; ELDER ELDER PER 15 CARE CARE MINUTES DAY CARE S5[address] ADULT; ELDER ELDER PER 15 CARE CARE MINUTES DAY CARE S5[address] ADULT; ELDER ELDER PER 15 CARE CARE MINUTES DAY CARE S5[address] ADULT; ELDER ELDER PER 15 CARE CARE MINUTES DAY CARE S[address] ADULT; ELDER ELDER PER 15 CARE CARE MINUTES CUL BACT 66743 LAB ANIKA LAB ANIKA AEROBIC 9 AMERIC AMERIC ADDL HOLDING HOLDING METHS DEFINITIV E EA ISOL CULTURE 72754 LAB ANIKA LAB ANIKA BCT 9 AMERIC AMERIC ISOL&PRSM HOLDING HOLDING PTV ID ISOLATE EA URINE CULTURE 76786 LAB ANIKA LAB ANIKA BACTERIAL 9 AMERIC AMERIC HOLDING HOLDING QUANTTATI VE COLONY COUNT URINE SUSCEPTIB 13498 LAB ANIKA LAB ANIKA LTY STDY 9 AMERIC AMERIC ANTIMICRB HOLDING HOLDING IAL MICRO/AGA R DILUTJ URINLS 12623 Mary HANDY DIP 9 LEANDRA Messer STICK/TAB PSC LET REAGNT NON-AUTO MICRSCPY TRAPEZE E0940 Y[facility]N YOSELYN BAR 9 HOME MED HOME MED FREESTAND EQUIP. EQUIP. [facility] COMPLETE WITH [facility] HOS BED E0260 YOSELYN YOSELYN SEMI-ELEC 9 HOME MED HOME MED W/ANY EQUIP. EQUIP. TYPE SIDE [facility] RAIL W/MATTRSS DAY CARE S[address] ADULT; ELDER ELDER PER 15 CARE CARE MINUTES DAY CARE S[address] ADULT; ELDER ELDER PER 15 CARE CARE MINUTES DAY CARE S5[address] ADULT; ELDER ELDER PER 15 CARE CARE MINUTES DAY CARE S5[address] ADULT; ELDER ELDER PER 15 CARE CARE MINUTES DAY CARE S5[address] ADULT; ELDER ELDER PER 15 CARE CARE MINUTES DAY CARE S5[address] ADULT; ELDER ELDER PER 15 CARE CARE MINUTES DAY CARE S5[address] ADULT; ELDER ELDER PER 15 CARE CARE MINUTES INTERMIT A4351 [facility]; E CENTERS E CENTERS STRAIGHT TIP W/WO COAT EA DAY CARE S[address] ADULT; ELDER ELDER PER 15 CARE CARE MINUTES DAY CARE S[address] ADULT; ELDER ELDER PER 15 CARE CARE MINUTES ADLT SZD T4528 [facility] 9 HOME HOME [facility]CONT HEALTH HEALTH PROD AGENCY AGENCY UNDWEAR XTRA LG EA DAY CARE S[address] ADULT; ELDER ELDER PER 15 CARE CARE MINUTES NORMAL A4256 M E D M E D LOW AND 8 SUPPLIES SUPPLIES HIGH CALIBRATO R SOLUTION/ CHIPS LANCETS A4259 M E D M E D PER BOX 8 SUPPLIES SUPPLIES OF 100 BLD GLU A4253 M E D M E D TEST/REAG 8 SUPPLIES SUPPLIES T STRIPS HOME BLD GLU MON-50 DAY CARE S[address] ADULT; ELDER ELDER PER 15 CARE CARE MINUTES DAY CARE S5[address] ADULT; ELDER ELDER PER 15 CARE CARE MINUTES DAY CARE S5[address] ADULT; ELDER ELDER PER 15 CARE CARE MINUTES DAY CARE S[address] ADULT; ELDER ELDER PER 15 CARE CARE MINUTES SUSCEPTIB 79987 LAB ANIKA LAB ANIKA LTY STDY 8 AMERIC AMERIC ANTIMICRB HOLDING HOLDING IAL MICRO/AGA R DILUTJ CULTURE 41760 LAB ANIKA LAB ANIKA BCT 8 AMERIC AMERIC ISOL&PRSM HOLDING HOLDING PTV ID ISOLATE EA URINE CULTURE 41969 LAB ANIKA LAB ANIKA BACTERIAL 8 AMERIC AMERIC HOLDING HOLDING QUANTTATI VE COLONY COUNT URINE CUL BACT 16750 LAB ANIKA LAB ANIKA AEROBIC 8 AMERIC AMERIC ADDL HOLDING HOLDING METHS DEFINITIV E EA ISOL DAY CARE S[address] ADULT; ELDER ELDER PER 15 CARE CARE MINUTES TRAPEZE E0940 YOSELYN SCHROEDER 8 HOME MED HOME MED FREESTAND EQUIP. EQUIP. ING [facility] COMPLETE WITH GR[facility] BAR HOS BED E0260 YOSELYN TOPETE SEMI-ELEC 8 HOME MED HOME MED W/ANY EQUIP. EQUIP. TYPE SIDE [facility] RAIL W/MATTRSS DAY CARE S[address] ADULT; ELDER ELDER PER 15 CARE CARE MINUTES DAY CARE S5[address] ADULT; ELDER ELDER PER 15 CARE CARE MINUTES DAY CARE S5[address] ADULT; ELDER ELDER PER 15 CARE CARE MINUTES DAY CARE S[address] ADULT; ELDER ELDER PER 15 CARE CARE MINUTES DAY CARE S5[address] ADULT; ELDER ELDER PER 15 CARE CARE MINUTES DAY CARE S5[address] ADULT; ELDER ELDER PER 15 CARE CARE MINUTES DAY CARE S5[address] ADULT; ELDER ELDER PER 15 CARE CARE MINUTES DAY CARE S5[address] ADULT; ELDER ELDER PER 15 CARE CARE MINUTES DAY CARE S5[address] ADULT; ELDER ELDER PER 15 CARE CARE MINUTES INTERMIT A4351 OUMAR SENA 8 [facility] CATH; E CENTERS E CENTERS STRAIGHT TIP W/WO COAT EA DAY CARE S5[address] ADULT; ELDER ELDER PER 15 CARE CARE MINUTES DAY CARE S5[address] ADULT; ELDER ELDER PER 15 CARE CARE MINUTES DAY CARE S5[address] ADULT; ELDER ELDER PER 15 CARE CARE MINUTES DAY CARE S5[address] ADULT; ELDER ELDER PER 15 CARE CARE MINUTES DAY CARE S5[address] ADULT; ELDER ELDER PER 15 CARE CARE MINUTES TRAPEZE E0940 YOSELYN SCHROEDER 8 HOME MED HOME MED FREESTAND EQUIP. EQUIP. ING [facility] BED E0260 YOSELYN TOPETE SEMI-ELEC 8 HOME MED HOME MED W/ANY EQUIP. EQUIP. TYPE SIDE [facility] RAIL W/MATTRSS DAY CARE S[address] ADULT; ELDER ELDER PER 15 CARE CARE MINUTES DAY CARE S5[address] ADULT; ELDER ELDER PER 15 CARE CARE MINUTES DAY CARE S5[address] ADULT; ELDER ELDER PER 15 CARE CARE MINUTES DAY CARE S5[address] ADULT; ELDER ELDER PER 15 CARE CARE MINUTES DAY CARE S5[address] ADULT; ELDER ELDER PER 15 CARE CARE MINUTES ADLT SZD T4528 [facility] 8 HOME HOME [facility] HEALTH PROD AGENCY AGENCY UNDWEAR XTRA LG EA DAY CARE S[address] ADULT; ELDER ELDER PER 15 CARE CARE MINUTES DAY CARE S5[address] ADULT; ELDER ELDER PER 15 CARE CARE MINUTES DAY CARE S5[address] ADULT; ELDER ELDER PER 15 CARE CARE MINUTES DAY CARE S5[address] ADULT; ELDER ELDER PER 15 CARE CARE MINUTES DAY CARE S5[address] ADULT; ELDER ELDER PER 15 CARE CARE MINUTES DAY CARE S5[address] ADULT; ELDER ELDER PER 15 CARE CARE MINUTES URINLS 13362 A Ayde MOBLEY, A DIP 8 LEANDRA Messer STICK/TAB PSC LET REAGNT NON-AUTO MICRSCPY IIV3 74945 RAMANDEEP SABILLON VACCINE 8 [facility] CENTER VIRUS 0.5 ML DOSAGE IM USE DAY CARE S[address] ADULT; ELDER ELDER PER 15 CARE CARE MINUTES ADMINISTR G0008 RAMANDEEP SABILLON ATION OF 8 [facility] CENTER VIRUS VACCINE DAY CARE S5[address] ADULT; ELDER ELDER PER 15 CARE CARE MINUTES DAY CARE S5[address] ADULT; ELDER ELDER PER 15 CARE CARE MINUTES DAY CARE S5[address] ADULT; ELDER ELDER PER 15 CARE CARE MINUTES DAY CARE S5[address] ADULT; ELDER ELDER PER 15 CARE CARE MINUTES DAY CARE S5[address] ADULT; ELDER ELDER PER 15 CARE CARE MINUTES DAY CARE S5[address] ADULT; ELDER ELDER PER 15 CARE CARE MINUTES TRAPEZE E0940 YOSELYN SCHROEDER 8 HOME MED HOME MED FREESTAND EQUIP. EQUIP. [facility] COMPLETE WITH [facility]AB ELDA CUL BACT 81887 LAB ANIKA LAB ANIK[facility] AEROBIC 8 AMERIC AMERIC ADDL HOLDING HOLDING METHS DEFINITIV E EA ISOL CULTURE 07086 LAB ANIKA LAB ANIKA BACTERIAL 8 AMERIC AMERIC HOLDING HOLDING QUANTTATI VE COLONY COUNT URINE CULTURE 77142 LAB ANIKA LAB ANIKA BCT 8 AMERIC AMERIC ISOL&PRSM HOLDING HOLDING PTV ID ISOLATE EA URINE SUSCEPTIB 03143 LAB ANIKA LAB ANIK[facility] LTY STDY 8 AMERIC AMERIC ANTIMICRB HOLDING HOLDING IAL MICRO/AGA R DILUTJ HOS BED E0260 YOSELYN TOPETE SEMI-ELEC 8 HOME MED HOME MED W/ANY EQUIP. EQUIP. TYPE SIDE [facility] RAIL W/MATTRSS INTERMIT A4351 OUMAR OUMAR URIN 8 [facility] CATH; E CENTERS E CENTERS STRAIGHT TIP W/WO COAT EA DAY CARE S5[address] ADULT; ELDER ELDER PER 15 CARE CARE MINUTES DAY CARE S5[address] ADULT; ELDER ELDER PER 15 CARE CARE MINUTES DAY CARE S5[address] ADULT; ELDER ELDER PER 15 CARE CARE MINUTES DAY CARE S5[address] ADULT; ELDER ELDER PER 15 CARE CARE MINUTES DAY CARE S5[address] ADULT; ELDER ELDER PER 15 CARE CARE MINUTES DAY CARE S5[address] ADULT; ELDER ELDER PER 15 CARE CARE MINUTES DAY CARE S5[address] ADULT; ELDER ELDER PER 15 CARE CARE MINUTES DAY CARE S5[address] ADULT; ELDER ELDER PER 15 CARE CARE MINUTES DAY CARE S5[address] ADULT; ELDER ELDER PER 15 CARE CARE MINUTES ADLT SZD T4528 [facility] 8 HOME HOME INCONT HEALTH HEALTH PROD AGENCY AGENCY UNDWEAR XTRA LG EA DAY CARE S[address] ADULT; ELDER ELDER PER 15 CARE CARE MINUTES REPL CRUZ A4235 M E D M E D LITHIUM 8 SUPPLIES SUPPLIES MED NECES SHERYL BG MON OWN PT EA SPRING- A4258 M E D M E D WERED 8 SUPPLIES SUPPLIES DEVICE FOR LANCET EACH BLD GLU A4253 M E D M E D TEST/REAG 8 SUPPLIES SUPPLIES T STRIPS HOME BLD GLU MON-50 LANCETS A4259 M E D M E D PER BOX 8 SUPPLIES SUPPLIES OF 100 NORMAL A4256 M E D M E D LOW AND 8 SUPPLIES SUPPLIES HIGH CALIBRATO R SOLUTION/ CHIPS DAY CARE S5[address] ADULT; ELDER ELDER PER 15 CARE CARE MINUTES DAY CARE S5[address] ADULT; ELDER ELDER PER 15 CARE CARE MINUTES DAY CARE S5[address] ADULT; ELDER ELDER PER 15 CARE CARE MINUTES DAY CARE S5[address] ADULT; ELDER ELDER PER 15 CARE CARE MINUTES DAY CARE S[address] ADULT; ELDER ELDER PER 15 CARE CARE MINUTES DAY CARE S[address] ADULT; ELDER ELDER PER 15 CARE CARE MINUTES DAY CARE S[address] ADULT; ELDER ELDER PER 15 CARE CARE MINUTES DAY CARE S[address] ADULT; ELDER ELDER PER 15 CARE CARE MINUTES DAY CARE S[address] ADULT; ELDER ELDER PER 15 CARE CARE MINUTES DAY CARE S[address] ADULT; ELDER ELDER PER 15 CARE CARE MINUTES DAY CARE S[address] ADULT; ELDER ELDER PER 15 CARE CARE MINUTES DAY CARE S[address] ADULT; ELDER ELDER PER 15 CARE CARE MINUTES DAY CARE S[address] ADULT; ELDER ELDER PER 15 CARE CARE MINUTES DAY CARE S[address] ADULT; ELDER ELDER PER 15 CARE CARE MINUTES DAY CARE S[address] ADULT; ELDER ELDER PER 15 CARE CARE MINUTES DAY CARE S[address] ADULT; ELDER ELDER PER 15 CARE CARE MINUTES DAY CARE S5[address] ADULT; ELDER ELDER PER 15 CARE CARE MINUTES DAY CARE S[address] ADULT; ELDER ELDER PER 15 CARE CARE MINUTES DAY CARE S5[address] ADULT; ELDER ELDER PER 15 CARE CARE MINUTES DAY CARE S5[address] ADULT; ELDER ELDER PER 15 CARE CARE MINUTES DAY CARE S5[address] ADULT; ELDER ELDER PER 15 CARE CARE MINUTES OPHTH [id number] ROBER, ROBER, MEDICAL 8 KIT A KIT A XM&JOELLE COMPRE NEW PT 1/> VST DAY CARE S5[address] ADULT; ELDER ELDER PER 15 CARE CARE MINUTES TRAPEZE E0940 YOSELYN SCHROEDER 8 HOME MED HOME MED FREESTAND EQUIP. EQUIP. ING [facility] COMPLETE WITH [facility] [id number] YOSELYN TOPETE SEMI-ELEC 8 HOME MED HOME MED W/ANY EQUIP. EQUIP. TYPE SIDE [facility] RAIL W/MATTRSS DAY CARE S5[address] ADULT; ELDER ELDER PER 15 CARE CARE MINUTES DAY CARE S5[address] ADULT; ELDER ELDER PER 15 CARE CARE MINUTES DAY CARE S5[address] ADULT; ELDER ELDER PER 15 CARE CARE MINUTES DAY CARE S5[address] ADULT; ELDER ELDER PER 15 CARE CARE MINUTES DAY CARE S5[address] ADULT; ELDER ELDER PER 15 CARE CARE MINUTES DAY CARE S5[address] ADULT; ELDER ELDER PER 15 CARE CARE MINUTES DAY CARE S[address] ADULT; ELDER ELDER PER 15 CARE CARE MINUTES INTERMIT [id number] OUMAR SENA 8 [facility]; E CENTERS E CENTERS STRAIGHT TIP W/WO COAT EA DAY CARE S5100 [facility] [address] [place] [address] ADULT; ELDER ELDER PER 15 CARE CARE MINUTES DAY CARE S5100 [facility] [address] [place] [address] ADULT; ELDER ELDER PER 15 CARE CARE MINUTES DAY CARE S5100 [facility] [address] [place] [address] ADULT; ELDER ELDER PER 15 CARE CARE MINUTES DAY CARE S5100 [facility] [address] [place] [address] ADULT; ELDER ELDER PER 15 CARE CARE MINUTES DAY CARE S5100 [facility] [address] ADULT; ELDER ELDER PER 15 CARE CARE MINUTES DAY CARE S5100 [facility] [address] [place] [address] ADULT; ELDER ELDER PER 15 CARE CARE MINUTES INCONTINE [id number] [facility] N[facility] 8 HOME HOME PRODUCT [facility] DISPOSABL AGENCY AGENCY E UNDPAD LARGE EA DAY CARE S5100 [facility] [address] ADULT; ELDER ELDER PER 15 CARE CARE MINUTES ADLT SZD [id number] [facility] DISPBL 8 HOME HOME INCONT HEALTH HEALTH PROD AGENCY AGENCY UNDWEAR XTRA LG EA DAY CARE S5100 [facility] [address] ADULT; ELDER ELDER PER 15 CARE CARE MINUTES DAY CARE S5100 [facility] [address] [place] [address] ADULT; ELDER ELDER PER 15 CARE CARE MINUTES DAY CARE S5100 [facility] [address] [place] [address] ADULT; ELDER ELDER PER 15 CARE CARE MINUTES TRAPEZE [id number] YOSELYN SCHROEDER 8 HOME MED HOME MED FREESTAND EQUIP. EQUIP. ING [facility] COMPLETE WITH ART [facility] E0260 YOSELYN TOPETE SEMI-ELEC 8 HOME MED HOME MED W/ANY EQUIP. EQUIP. TYPE SIDE [facility] RAIL W/MATTRSS DAY CARE S5100 [facility] [address] [place] [address] ADULT; ELDER ELDER PER 15 CARE CARE MINUTES DAY CARE S5100 [facility] [address] [place] [address] ADULT; ELDER ELDER PER 15 CARE CARE MINUTES DAY CARE S5100 [facility]PSHEREE [facility] [address] [place] [address] ADULT; ELDER ELDER PER 15 CARE CARE MINUTES DRUG 34037 [facility] ASSAY 8 [facility] VALPROIC INC INC DIPROPYLA CETIC ACID TOTAL ECG 45805 RAMANDEEP BESSON, ROUTINE 8 [facility] W/LEAST PROF SERV 12 LDS I&R ONLY COMPREHEN 48450 RAMANDEEP [facility] SIVE 8 [facility] METABOLIC INC INC PANEL CREATINE 70398 [facility] S[facility]ILL[facility] KINASE MB 8 [facility] [place] [address] JAYLENE BURRIS, HEAD/BRAI 8 MEDICAL YONY P N W/O IMAGING CONTR[place] 01518 [facility] THER 8 [facility] PROPH/DX INC INC 1ST >1 HR ECG 64421 [facility] ROUTINE 8 [facility] ECG INC INC W/LEAST 12 LDS TRCG ONLY W/O I&R CREATINE 87899 [facility] KINASE 8 [facility] TOTAL INC INC PROTHROMB 01104 [facility] IN TIME 8 [facility] INC INC GROUND A0425 [facility] 8 AMBULANCE AMBULANCE PER SERVICE SERVICE STATUTE MILE 3D 10548 JAYLENE BURRIS, RENDERING 8 MEDICAL YONY P IMAGING W/INTERP& ASSOCIATE POSTPROC S DIFF WORK STATION AMB A0427 [facility] SERVICE 8 AMBULANCE AMBULANCE ALS SERVICE SERVICE EMERGENCY TRANSPORT LEVEL 1 [place] [address] [facility]ANDEEP [facility] TROPONIN 8 [facility] QUANTITAT INC INC TAYLER BLOOD 93226 [facility] COUNT 8 [facility] COMPLETE INC INC AUTO&AUTO DIFRNTL WBC THROMBOPL 35149 [facility] ASTIN 8 [facility] TIME INC INC PARTIAL PLASMA/WH OLE BLOOD DAY CARE S5100 [facility] [address] [place] [address] ADULT; ELDER ELDER PER 15 CARE CARE MINUTES DAY CARE S5100 [facility] [address] [place] [address] ADULT; ELDER ELDER PER 15 CARE CARE MINUTES DAY CARE S5100 [facility] [address] [place] [address] ADULT; ELDER ELDER PER 15 CARE CARE MINUTES DAY CARE S5100 [facility] [address] [place] [address] ADULT; ELDER ELDER PER 15 CARE CARE MINUTES BLD GLU A4253 M E D M E D TEST/REAG 8 SUPPLIES SUPPLIES T STRIPS HOME BLD GLU MON-50 DAY CARE S[address] ADULT; ELDER ELDER PER 15 CARE CARE MINUTES DAY CARE S5[address] ADULT; ELDER ELDER PER 15 CARE CARE MINUTES TRAPEZE E0940 YOSELYN TOPETE BAR 8 HOME MED HOME MED FREESTAND EQUIP. EQUIP. ING [employer] [facility] COMPLETE WITH [facility] E0260 YOSELYN TOPETE SEMI-ELEC 8 HOME MED HOME MED W/ANY EQUIP. EQUIP. TYPE SIDE [facility] RAIL W/MATTRSS DAY CARE S5[address] ADULT; ELDER ELDER PER 15 CARE CARE MINUTES DAY CARE S5[address] ADULT; ELDER ELDER PER 15 CARE CARE MINUTES DAY CARE S5[address] ADULT; ELDER ELDER PER 15 CARE CARE MINUTES MEDICAL 76738 DHS/CO [facility] [address] [place] [address] ASSMT&IVN BANK ACCT TJ INDIV EACH 15 NC DAY CARE S5100 [address] ADULT; ELDER ELDER PER 15 CARE CARE MINUTES DAY CARE S5[address] ADULT; ELDER ELDER PER 15 CARE CARE MINUTES ADLT SZD T4528 [facility] HOME HOME INCONT HEALTH HEALTH PROD AGENCY AGENCY UNDWEAR XTRA LG EA DAY CARE S5100 [address] ADULT; ELDER ELDER PER 15 CARE CARE MINUTES DAY CARE S5100 [address] ADULT; ELDER ELDER PER 15 CARE CARE MINUTES DAY CARE S5[address] ADULT; ELDER ELDER PER 15 CARE CARE MINUTES DAY CARE S5[address] ADULT; ELDER ELDER PER 15 CARE CARE MINUTES TRAPEZE E0940 YOSELYN SCHROEDER 8 HOME MED HOME MED FREESTAND EQUIP. EQUIP. ING [employer] COMPLETE WITH [facility] E0260 YOSELYN GUAJARDORELL SEMI-ELEC 8 HOME MED HOME MED W/ANY EQUIP. EQUIP. TYPE [facility] RAIL W/MATTRSS DAY CARE S5[address] ADULT; ELDER ELDER PER 15 CARE CARE MINUTES DAY CARE S5[address] ADULT; ELDER ELDER PER 15 CARE CARE MINUTES DAY CARE S5[address] ADULT; ELDER ELDER PER 15 CARE CARE MINUTES DAY CARE S5[address] ADULT; ELDER ELDER PER 15 CARE CARE MINUTES DAY CARE S5[address] ADULT; ELDER ELDER PER 15 CARE CARE MINUTES DAY CARE S5[address] ADULT; ELDER ELDER PER 15 CARE CARE MINUTES DAY CARE S5[address] ADULT; ELDER ELDER PER 15 CARE CARE MINUTES INTERMIT A4351 OUMAR SENA 8 [facility] CATH; E CENTERS E CENTERS STRAIGHT TIP W/WO COAT EA DAY CARE S5[address] ADULT; ELDER ELDER PER 15 CARE CARE MINUTES DAY CARE S5100 [address] ADULT; ELDER ELDER PER 15 CARE CARE MINUTES DAY CARE S5[address] ADULT; ELDER ELDER PER 15 CARE CARE MINUTES DAY CARE S5[address] ADULT; ELDER ELDER PER 15 CARE CARE MINUTES DAY CARE S5[address] ADULT; ELDER ELDER PER 15 CARE CARE MINUTES DAY CARE S5[address] ADULT; ELDER ELDER PER 15 CARE CARE MINUTES DAY CARE S5[address] ADULT; ELDER ELDER PER 15 CARE CARE MINUTES DAY CARE S5[address] ADULT; ELDER ELDER PER 15 CARE CARE MINUTES DAY CARE S5[address] ADULT; ELDER ELDER PER 15 CARE CARE MINUTES DAY CARE S5[address] ADULT; ELDER ELDER PER 15 CARE CARE MINUTES DAY CARE S5[address] ADULT; ELDER ELDER PER 15 CARE CARE MINUTES DAY CARE S5[address] ADULT; ELDER ELDER PER 15 CARE CARE MINUTES DAY CARE S5[address] ADULT; ELDER ELDER PER 15 CARE CARE MINUTES TRAPEZE E0940 YOSELYN TOPETE BAR 8 HOME MED HOME MED FREESTAND EQUIP. EQUIP. ING [facility] COMPLETE WITH [facility] HOS [facility]ED E0260 YOSELYN TOPETE SEMI-ELEC 8 HOME MED HOME MED W/ANY EQUIP. EQUIP. TYPE SIDE [facility] RAIL W/MATTRSS AIR PRESS E0197 YOSELYN TOPETE PAD 8 HOME MED HOME MED MATTRSS EQUIP. EQUIP. STD [facility] MATTRSS LENGTH&WI DTH DAY CARE S5[address] ADULT; ELDER ELDER PER 15 CARE CARE MINUTES DAY CARE S5100 [address] ADULT; ELDER ELDER PER 15 CARE CARE MINUTES DAY CARE S5100 [address] ADULT; ELDER ELDER PER 15 CARE CARE MINUTES DAY CARE S5[address] ADULT; ELDER ELDER PER 15 CARE CARE MINUTES DAY CARE S5[address] ADULT; ELDER ELDER PER 15 CARE CARE MINUTES DAY CARE S5[address] ADULT; ELDER ELDER PER 15 CARE CARE MINUTES DAY CARE S5[address] ADULT; ELDER ELDER PER 15 CARE CARE MINUTES ADLT SZD T4528 [facility] 8 HOME HOME [facility] HEALTH HEALTH PROD AGENCY AGENCY UNDWEAR XTRA LG EA DAY CARE S[address] ADULT; ELDER ELDER PER 15 CARE CARE MINUTES DAY CARE S5[address] ADULT; ELDER ELDER PER 15 CARE CARE MINUTES DAY CARE S5[address] ADULT; ELDER ELDER PER 15 CARE CARE MINUTES BLD GLU A4253 M E D M E D TEST/REAG 8 SUPPLIES SUPPLIES T STRIPS HOME BLD GLU SAT-50 DAY CARE S5[address] ADULT; ELDER ELDER PER 15 CARE CARE MINUTES DAY CARE S5100 [address] ADULT; ELDER ELDER PER 15 CARE CARE MINUTES DAY CARE S5[address] ADULT; ELDER ELDER PER 15 CARE CARE MINUTES DAY CARE S5[address] ADULT; ELDER ELDER PER 15 CARE CARE MINUTES DAY CARE S5[address] ADULT; ELDER ELDER PER 15 CARE CARE MINUTES DAY CARE S5100 [address] ADULT; ELDER ELDER PER 15 CARE CARE MINUTES DAY CARE S5[address] ADULT; ELDER ELDER PER 15 CARE CARE MINUTES DAY CARE S5[address] ADULT; ELDER ELDER PER 15 CARE CARE MINUTES DAY CARE S5[address] ADULT; ELDER ELDER PER 15 CARE CARE MINUTES INTERMIT A4351 OUMAR SENA 8 [facility] CATH; E CENTERS E CENTERS STRAIGHT TIP W/WO COAT EA DAY CARE S5[address] ADULT; ELDER ELDER PER 15 CARE CARE MINUTES DAY CARE S5[address] ADULT; ELDER ELDER PER 15 CARE CARE MINUTES DAY CARE S5[address] ADULT; ELDER ELDER PER 15 CARE CARE MINUTES DAY CARE S5[address] ADULT; ELDER ELDER PER 15 CARE CARE MINUTES DAY CARE S5[address] ADULT; ELDER ELDER PER 15 CARE CARE MINUTES ADLT SZD T4528 [facility] 8 HOME HOME INCONT HEALTH HEALTH PROD AGENCY AGENCY UNDWEAR XTRA LG EA DAY CARE S5[address] ADULT; ELDER ELDER PER 15 CARE CARE MINUTES DAY CARE S5[address] ADULT; ELDER ELDER PER 15 CARE CARE MINUTES DAY CARE S5100 [facility] [address] [place] [address] ADULT; ELDER ELDER PER 15 CARE CARE MINUTES DAY CARE S5100 [facility] [address] [place] [address] ADULT; ELDER ELDER PER 15 CARE CARE MINUTES DAY CARE S5100 [facility] [address] [place] [address] ADULT; ELDER ELDER PER 15 CARE CARE MINUTES DAY CARE S5100 [facility] [address] [place] [address] ADULT; ELDER ELDER PER 15 CARE CARE MINUTES DAY CARE S5100 [facility] [address] [place] [address] ADULT; ELDER ELDER PER 15 CARE CARE MINUTES DAY CARE S5100 [facility] [address] [place] [address] ADULT; ELDER ELDER PER 15 CARE CARE MINUTES DAY CARE S5100 [facility] [address] [place] [address] ADULT; ELDER ELDER PER 15 CARE CARE MINUTES DAY CARE S5[address] ADULT; ELDER ELDER PER 15 CARE CARE MINUTES DAY CARE S5100 [address] ADULT; ELDER ELDER PER 15 CARE CARE MINUTES DAY CARE S5100 [address] [address] ADULT; ELDER ELDER PER 15 CARE CARE MINUTES DAY CARE S5[address] ADULT; ELDER ELDER PER 15 CARE CARE MINUTES DAY CARE S5[address] ADULT; ELDER ELDER PER 15 CARE CARE MINUTES DAY CARE S5100 RAMANDEEP RAMANDEEP [address] ADULT; ELDER ELDER PER 15 CARE CARE MINUTES DAY CARE S5100 [address] [address] ADULT; ELDER ELDER PER 15 CARE CARE MINUTES DAY CARE S5100 [facility] [address] [place] [address] ADULT; ELDER ELDER PER 15 CARE CARE MINUTES DAY CARE S5100 [facility] [address] [place] [address] ADULT; ELDER ELDER PER 15 CARE CARE MINUTES DAY CARE S5100 [facility] [address] [place] [address] ADULT; ELDER ELDER PER 15 CARE CARE MINUTES ADLT SZD [id number] [facility] AGENCY AGENCY UNDWEAR XTRA LG EA INCONTINE T4541 [facility] NCE 8 HOME HOME PRODUCT HEALTH HEALTH DISPOSABL AGENCY AGENCY E UNDPAD LARGE EA DAY CARE S5100 [facility] 8 [place] ADULT; ELDER ELDER PER 15 CARE CARE MINUTES DAY CARE S5100 [facility] 8 [place] ADULT; ELDER ELDER PER 15 CARE CARE MINUTES Encounters Encounter Start End Date Code Location Performer Type Date Emergency JORGE Wadegerard (ER) 3 15:31 3 17:43 [facility] Taurus Denney [facility], 0 0 HOME OUTPATIEN HEALTH T [facility] - 0 0 [facility] T HOME [facility], 0 0 DIST OTHER HEALTH DEPT 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 HOME [facility], 0 0 DIST OTHER HEALTH DEPT 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 HOME [facility], 0 0 HOME OUTPATIEN HEALTH T AGENCY HOME [facility], 0 0 DIST OTHER HEALTH DEPT 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 OFFICE 98456 TERRY GALARZA 9 9 LEANDRA Hernandez T VISIT PSC 15 MINUTES OFFICE 17161 TERRY MCGREGOR 9 9 LEANDRA PEITT T VISIT 5 PSC MINUTES HOME [facility] HEALTH, 9 9 DIST OTHER HEALTH DEPT 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 HOME [facility], 9 9 HOME OUTPATIEN HEALTH T AGENCY OFFICE 46174 TERRY RUIZ 9 9 LYNNE MUNGUIA T VISIT SERV 15 FOUNDATIO MINUTES HOME [facility], 9 9 DIST OTHER HEALTH DEPT 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 HOME [facility], 9 9 HOME OUTPATIEN HEALTH T [facility] RAM[facility] - 9 9 [facility] OUTPAT[facility]EN INC T [facility] 9 9 DIST OTHER HEALTH DEPT 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 OFFICE 16555 TIM SCHULTE, CONSULTAT 9 9 LYNNE MUNGUIA ION SERV NEW/ESTAB FOUNDATIO PATIENT 60 MIN HOME [facility], 9 9 DIST OTHER HEALTH DEPT 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 OFFICE 85528 Mary HANDY OUTPATIEN 9 9 LEANDRA Messer T VISIT PSC 15 MINUTES OFFICE 52324 Mary HANDY OUTPATIEN 9 9 LEANDRA Messer T VISIT PSC 15 MINUTES HOME [facility], 9 9 DIST OTHER HEALTH DEPT 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 HOME [facility], 9 9 HOME OUTPATIEN HEALTH T [facility] - 9 9 [facility] OUTPATIEN [facility] T HOME [facility], 9 9 DIST OTHER HEALTH DEPT 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 HOME [facility], 9 9 DIST OTHER HEALTH DEPT 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 HOME [facility], 9 9 HOME OUTPATIEN HEALTH T AGENCY OFFICE 13234 TERRY GALARZA 9 9 LEANDRA Hernandez T VISIT PSC 15 MINUTES HOME [facility], 9 9 DIST OTHER HEALTH DEPT 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 OFFICE 02619 TERRY MCGREGOR 9 9 LEANDRA PETIT T VISIT 5 PSC MINUTES OFFICE 24043 TERRY GALARZA 9 9 LEANDRA Hernandez T VISIT PSC 15 MINUTES HOME [facility], 9 9 DIST OTHER HEALTH DEPT 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 HOME [facility], 9 9 HOME OUTPATIEN HEALTH T AGENCY OFFICE 87642 DHS/CO [facility] OUTPATIEN 9 9 HEALTH CO HEALTH T VISIT [facility] 15 BANK ACCT MINUTES HOME [facility], 9 9 DIST OTHER HEALTH DEPT 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 HOME [facility], 9 9 DIST OTHER HEALTH DEPT 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 OFFICE 26573 Mary HANDY OUTPATIEN 9 9 LEANDRA Rhodes VISIT PSC 15 MINUTES HOME [facility], 9 9 HOME OUTPATIEN HEALTH T AGENCY HOME [facility], 9 9 DIST OTHER HEALTH DEPT 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 OFFICE 57645 Mary HANDY OUTPATIEN 9 9 LEANDRA Rhodes VISIT 5 PSC MINUTES HOME [facility], 9 9 HOME OUTPATIEN HEALTH T AGENCY HOME [facility], 9 9 DIST OTHER HEALTH DEPT 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 OFFICE 76486 Mary HANDY OUTPATIEN 9 9 LEANDRA Rhodes VISIT 5 PSC MINUTES HOME [facility], 9 9 DIST OTHER HEALTH DEPT 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 HOME [facility], 9 9 HOME OUTPATIEN HEALTH T AGENCY OFFICE 06216 Mary HANDY OUTPATIEN 9 9 LEANDRA Rhodes VISIT 5 PSC MINUTES OFFICE 43128 Mary HANDY OUTPATIEN 9 9 LEANDRA Rhodes VISIT PSC 15 MINUTES HOME [facility], 9 9 DIST OTHER HEALTH DEPT 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 OFFICE 82889 Mary HANDY OUTPATIEN 9 9 LEANDRA Rhodes VISIT 5 PSC MINUTES HOME [facility], 9 9 DIST OTHER HEALTH DEPT 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 HOME [facility], 9 9 HOME OUTPATIEN HEALTH T AGENCY HOME [facility], 8 8 DIST OTHER HEALTH DEPT 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 HOME [facility], 8 8 HOME OUTPATIEN HEALTH T AGENCY HOME [facility], 8 8 DIST OTHER HEALTH DEPT 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 OFFICE 43495 Mary HANDY OUTPATIEN 8 8 LEANDRA Messer T VISIT 5 PSC MINUTES HOME [facility], 8 8 DIST OTHER HEALTH DEPT 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 HOME [facility], 8 8 HOME OUTPATIEN HEALTH T AGENCY HOME [facility], 8 8 DIST OTHER HEALTH DEPT 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 HOME [facility], 8 8 DIST OTHER HEALTH DEPT 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 HOME [facility], 8 8 HOME OUTPATIEN HEALTH T AGENCY OFFICE 50597 Mary HANDY OUTPATIEN 8 8 LEANDRA Messer T VISIT PSC 15 MINUTES EMERGENCY 78761 JEEVAN ORTIZ, 8 8 [facility] DEPARTMEN CORPORATI O T VISIT ON MODERATE SEVERITY EMERGENCY 86857 [facility] 8 8 [facility] DEPARTMEN INC T VISIT HIGH/URGE NT SEVERITY HOSPITAL RAM[facility]EP - 8 8 [facility] OUTPATIEN INC T HOME [email or web address], 8 8 DIST OTHER HEALTH DEPT 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 OFFICE 08499 Mary HANDY OUTPATIEN 8 8 LEANDRA Messer T VISIT PSC 15 MINUTES HOME [email or web address], 8 8 DIST OTHER HEALTH DEPT 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 HOME [employer] HEALTH, 8 8 HOME OUTPATIEN HEALTH T AGENCY HOME [employer] HEALTH, 8 8 DIST OTHER HEALTH DEPT 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 HOME [email or web address], 8 8 HOME OUTPATIEN HEALTH T AGENCY HOME [email or web address], 8 8 DIST OTHER HEALTH DEPT 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 OFFICE 85228 DHS/CO RAMANDEEP OUTPATIEN 8 8 HEALTH CO HEALTH T VISIT [facility] 10 BANK ACCT MINUTES HOME [facility] HEALTH, 8 8 DIST OTHER HEALTH DEPT 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 HOME [facility], 8 8 HOME OUTPATIEN HEALTH T AGENCY OFFICE 31493 DHS[facility] [place] [facility] T VISIT [facility] 15 BANK ACCT MINUTES HOME [facility], 8 8 DIST OTHER HEALTH DEPT 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 HOME [facility] [employer], 8 8 HOME OUTPATIEN HEALTH T AGENCY HOME [facility], 8 8 DIST OTHER HEALTH DEPT 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
--- OUTSIDE RECORDS SUMMARY | 2016-12-16 17:26 | External Medical Summary Rpt ---
Author Author , Organization [employer] Address Unknown Phone Unavailable Care Team Providers Care Sportspersons Name Role Phone ALBA STODDARD, Unavailable Unavailable ALBA STODDARD ANTONIO, Unavailable Unavailable [facility] Unavailable Unavailable SERVICE, [facility] Unavailable Unavailable CENTERS, [facility] Un[facility] Unavailable INC, [facility] Unavailable Unavailable CENTER, [facility] Unavailable Unavailable CARE, [facility] Unavailable Unavailable INC, [facility] KIT RICHTER, Unavailable Unavailable KIT RICHTER [facility] Unavailable Unavailable [facility], [facility] Unavailable Unavailable HOLDING, [facility] M E D SUPPLIES, M E D Unavailable Unavailable SUPPLIES YONY BURRIS, Unavailable Unavailable YONY BURRIS STEPHEN A, Unavailable Unavailable ALBA MANLEY MARC D, Unavailable Unavailable FLAKITA LEAL [facility] Unavailable Unavailable ASSOCIATES,[facility], [facility] DAMASO ALMANZAR, Unavailable Unavailable DAMASO ALMANZAR BABATUNDE O, Unavailable Unavailable BARNEY ORTIZ [facility] Unavailable Unavailable [facility], [facility] Unavailable Unavailable DEPT DEMOLITION EXPERT, [facility] DEPT DEMOLITION EXPERT [facility] HOME [facility] Unavailable Unavailable AGENCY, [facility] Taurus Vázquez Unavailable Unavailable III , Taurus Vázquez III Mary MATIAS, LEANDRA, Unavailable Unavailable A C Purpose Continuity of Care Document - 08-20-2007 through 2016 Problems Code Diagnosis DOS Provider Status 250.00 250.00 DIAB 01-31-2013 [facility], [facility] Hospital II OR UNSPEC TYPE, NOT UNCNTRLD 401.9 401.9 06-15-2013 Ramandeep HYPERTENSIO [facility] N NOS Hospital 729.81 729.81 01-31-2013 Ramandeep SWELLING OF [facility] LIMB Hospital 780.39 780.39 01-31-2013 Ramandeep OTHER [facility] CONVULSIONS Hospital V12.54 V12.54 01-31-2013 Ramandeep PERSONAL HX [facility] OF TIA,& Hospital CEREBRAL INFARCTION W/OUT RES DEFICITS V58.61 V58.61 01-31-2013 Ramandeep ANTICOAGULA [facility] NTS,LT,[facility] Hospital ENT USE V58.69 V58.69 OTH 01-31-2013 Ramandeep MED,LT,[facility] ENT USE Hospital 01193 DIAB W/O 11-11-2009 M E D MENTION SUPPLIES COMP TYPE II/UNS TYPE UNCNTRL 78139 UNSPECIFIED 11-10-2009 [facility] INCONTINENC CENTERS E 4389 UNSPEC LATE 11-07-2009 [facility] EFF [facility]ALTH CEREBRVASC AGENCY DZ DUE CEREBRVASC DZ 7197 DIFFICULTY 11-07-2009 [facility] IN WALKING HEALTH AGENCY 16220 OTHER 11-07-2009 [facility] MALAISE AND HEALTH FATIGUE AGENCY 437 OTHER 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[facility] CEREBROVASC ULAR DISEASE 5950 ACUTE 10-24-2009 [facility]STITIS [facility] 16794 INCOMPLETE 10-24-2009 [facility] BLADDER [facility] EMPTYING INC 4019 UNSPECIFIED 10-17-2009 [facility] HYPERTENSIO DEMOLITION EXPERT N 496 CHRONIC 10-17-2009 [facility] DE[facility] OBSTRUCTION DEMOLITION EXPERT NEC 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MEL, OSIS OF FLAKITA Penaloza NAIL 7295 PAIN IN 10-07-2009 MEL, SOFT FLAKITA Penaloza TISSUES OF LIMB 95322 DIAB W/O 08-02-2009 [facility] COMP TYPE AMERIC II/UNS NOT HOLDING STATED UNCNTRL 39305 OTH FORM 08-02-2009 [facility] EPILEPSY & AMERIC RECUR HOLDING SEIZUR NO INTRACT EPIL 4011 ESSENTIAL 08-02-2009 [facility] HYPERTENSIO AMERIC N, BENIGN HOLDING 4659 ACUTE URIS 08-02-2009 Mary COATS PSC UNSPECIFIED SITE V5861 LONG-TERM 08-02-2009 Mary MOBLEY (CURRENT) PSC USE OF ANTICOAGULA NTS 5990 URINARY 08-01-2009 [facility] TRACT AMERIC INFECTION HOLDING SITE NOT SPECIFIED 15321 UNSPECIFIED 06-29-2009 [facility] N V0481 NEED 06-01-2009 RAMAN[facility]EP CO [facility]I [facility] CENTER VACCINATION &INOCULATIO N FLU 2724 OTHER AND 05-26-2009 [facility] UNSPECIFIED [facility] INC HYPERLIPIDE ROXANNA 88578 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 436 ACUTE BUT 12-03-2008 [facility] ILL-DEFINED [facility] CEREBROVASC ULAR DISEASE 64460 OTHER 11-24-2008 Mary MOBLEY CONVULSIONS PSC E9479 UNSPEC 11-24-2008 LAB [facility] RX/MEDICINA AMERIC L [place]ST[place] [address] MALIG HTN 10-08-2008 [facility]OT[facility] DISE[facility], [facility] HEART FAIL 4589 UNSPECIFIED 10-08-2008 [facility] 4660 ACUTE 10-08-2008 PROST[facility]& BRONCHITIS ORTHOTIC [facility], [facility] 3320 PARALYSIS 10-01-2008 [facility] AGITANS HEALTH AGENCY 5964 ATONY OF 10-01-2008 [facility] BLADDER HEALTH AGENCY V5789 OTHER 10-01-2008 [facility] SPECIFIED HEALTH REHABILITAT AGENCY ION PROCEDURE OTHER 15013 UNSPECIFIED 07-13-2008 [facility] URINE CENTERS 7802 SYNCOPE AND 02-24-2008 Mary MOBLEY COLLAPSE PSC 7804 DIZZINESS 02-23-2008 [facility] GIDDINESS SERVICE V653 DIETARY 01-21-2008 [facility] SURVEILLANC HEALTH E AND [facility]AL [facility]SEL[facility] B[facility] ACCT V7791 SCREENING 11-06-2007 [facility] FOR LIPOID HEALTH DISORDERS CENTRAL BANK ACCT 7806 FEVER & OTH 09-02-2007 [facility] DISTURBANCE S TEMP [...] Given on t er Refuse d IIV3 [place] No VACCIN [facility] 0.5 ML DOSAGE IM USE IIV3 [place] No VACCIN 2008 [facility] 0.5 ML DOSAGE IM USE IIV3 [place] No VACCIN 2007 ON [facility] E HEALTH [...] DAY CARE S5100 [facility] SERVICES 0 [facility] ADULT; ELDER ELDER PER 15 CARE CARE MINUTES DAY CARE S5100 [facility] SERVICES 0 [facility] ADULT; ELDER ELDER PER 15 CARE CARE MINUTES DAY CARE S5100 [facility] SERVICES 0 [facility] ADULT; ELDER ELDER PER 15 CARE CARE MINUTES BLD GLU A4253 M E D M E D TEST/REAG 0 SUPPLIES SUPPLIES T STRIPS HOME BLD GLU MON-50 LANCETS A4259 M E D M E D PER BOX 0 SUPPLIES SUPPLIES OF 100 DAY CARE S5100 [facility] 0 [facility] ADULT; ELDER ELDER PER 15 CARE CARE MINUTES INTERMIT A4351 [facility] URIN 0 [facility] CATH; E CENTERS E CENTERS STRAIGHT TIP W/WO COAT EA DAY CARE S5100 [facility] 0 [facility] ADULT; ELDER ELDER PER 15 CARE CARE MINUTES DAY CARE S5100 [facility] SERVICES 0 [facility] ADULT; ELDER ELDER PER 15 CARE CARE MINUTES ADLT SZD T4528 [facility] HOME INCONT HEALTH HEALTH PROD AGENCY AGENCY UNDWEAR XTRA LG EA INCONTINE T4541 [facility] NCE 0 HOME HOME PRODUCT HEALTH HEALTH DISPOSABL AGENCY AGENCY E UNDPAD LARGE EA DAY CARE S5100 [facility] SERVICES 0 [facility] ADULT; ELDER ELDER PER 15 CARE CARE MINUTES DAY CARE S5100 [facility] SERVICES 0 [facility] ADULT; ELDER ELDER PER 15 CARE CARE MINUTES DAY CARE S5100 [facility] SERVICES 0 [facility] ADULT; ELDER ELDER PER 15 CARE CARE MINUTES DAY CARE S5100 [facility] SERVICES 0 [facility] ADULT; ELDER ELDER PER 15 CARE CARE MINUTES DAY CARE S5100 [facility] OLSONON SERVICES 0 [facility] ADULT; ELDER ELDER PER 15 CARE CARE MINUTES CULTURE 63882 [facility] BACTERIAL 0 [facility] INC INC QUANTTATI VE COLONY COUNT URINE CULTURE 69896 [facility] BCT 0 [facility] ISOL&PRSM INC INC PTV ID ISOLATE EA URINE SUSCEPTIB 74085 [facility] LTY STDY 0 [facility] ANTIMICRB INC INC IAL MICRO/AGA R DILUTJ DAY CARE S5100 [facility] SERVICES 0 [facility] ADULT; ELDER ELDER PER 15 CARE CARE MINUTES DAY CARE S5100 RAM[facility]DEEPSHEREE SABILLON SERVICES 0 [facility] ADULT; ELDER ELDER PER 15 CARE CARE MINUTES DAY CARE S5100 [facility] SERVICES 0 [facility] ADULT; ELDER ELDER PER 15 CARE CARE MINUTES DAY CARE S5100 [facility] SERVICES 0 [facility] ADULT; ELDER ELDER PER 15 CARE CARE MINUTES DAY CARE S5100 [facility] SERVICES 0 [facility] ADULT; ELDER ELDER PER 15 CARE CARE MINUTES DAY CARE S5100 [facility] SERVICES 0 [facility] ADULT; ELDER ELDER PER 15 CARE CARE MINUTES DAY CARE S5100 RAMANDEEPSHEREE SABILLON SERVICES 0 [facility] ADULT; ELDER ELDER PER 15 CARE CARE MINUTES DAY CARE S5100 RAMANDEEP RAMANDEEP SERVICES 0 [facility] ADULT; ELDER ELDER PER 15 CARE CARE MINUTES INTERMIT A4351 [facility] [address] SENA 0 [facility]; E CENTERS E CENTERS STRAIGHT TIP W/WO COAT DAY CARE S5100 [facility] SERVICES 0 [facility] ADULT; ELDER ELDER PER 15 CARE CARE MINUTES DAY CARE S5100 RAMANDEEP RAMANDEEP SERVICES 0 [facility] ADULT; ELDER ELDER PER 15 CARE CARE MINUTES DAY CARE S5100 RAMANDEEP RAMANDEEP SERVICES 0 [facility] ADULT; ELDER ELDER PER 15 CARE CARE MINUTES DAY CARE S5100 RAMANDEEP RAMANDEEP SERVICES 0 [facility] ADULT; ELDER ELDER PER 15 CARE CARE MINUTES DAY CARE S5100 RAMANDEEP RAMANDEEP SERVICES 0 [facility] ADULT; ELDER ELDER PER 15 CARE CARE MINUTES DAY CARE S5100 RAMANDEEP RAMANDEEP SERVICES 0 [facility] ADULT; ELDER ELDER PER 15 CARE CARE MINUTES ADLT SZD T4528 [facility] HOME HOME INCONT HEALTH HEALTH PROD AGENCY AGENCY UNDWEAR XTRA LG EA DAY CARE S[address] ADULT; ELDER ELDER PER 15 CARE CARE MINUTES DAY CARE S5[address] ADULT; ELDER ELDER PER 15 CARE CARE MINUTES DAY CARE S5[address] ADULT; ELDER ELDER PER 15 CARE CARE MINUTES DAY CARE S5[address] ADULT; ELDER ELDER PER 15 CARE CARE MINUTES DAY CARE S5[address] ADULT; ELDER ELDER PER 15 CARE CARE MINUTES DAY CARE S[address] ADULT; ELDER ELDER PER 15 CARE CARE MINUTES DRUG 77658 LAB [facility] ASSAY 9 AMERIC AMERIC VALPROIC HOLDING HOLDING DIPROPYLA CETIC ACID TOTAL INJ J0702 Mary MANLEY BETAMETHA 9 LEANDRA Hernandez SONE PSC ACETATE & PHOSPHATE 3 MG BASIC 85413 [facility] METABOLIC 9 AMERIC AMERIC PANEL HOLDING HOLDING CALCIUM TOTAL GLUCOSE 00136 Mary MANLEY QUANTITAT 9 LEANDRA Hernandez TAYLER BLOOD PSC XCPT REAGENT STRIP HEMOGLOBI 27365 Uriel GALARZA 9 LEANDRA Hernandez GLYCOSYLA PSC SUSAN A1C COLLECTIO 65753 Uriel GALARZA VENOUS 9 LEANDRA Hernandez BLOOD PSC VENIPUNCT URE IM ADM 68960 JESS GALARZAQ ID 9 LEANDRA Hernandez SUBQ/IM PSC NJXS 1 VACCINE PROTHROMB 23111 Mary MANLEY, IN TIME 9 LEANDRA Hernandez PSC SUSCEPTIB 99754 LAB [facility] LAB ANIK[facility] LTY STDY 9 AMERIC AMERIC ANTIMICRB HOLDING HOLDING IAL MICRO/AGA R DILUTJ CULTURE 08371 [facility] BCT 9 AMERIC AMERIC ISOL&PRSM HOLDING HOLDING PTV ID ISOLATE EA URINE CULTURE 15570 [facility] BACTERIAL 9 AMERIC AMERIC HOLDING HOLDING QUANTTATI VE COLONY COUNT URINE CUL BACT 62214 [facility] AEROBIC 9 AMERIC AMERIC ADDL HOLDING HOLDING METHS DEFINITIV E EA ISOL URINLS 12510 PHYLICIA MCGREGOR 9 LEANDRA PETIT STICK/TAB PSC LET REAGNT NON-AUTO MICRSCPY DAY CARE S[address] ADULT; ELDER ELDER PER 15 CARE CARE MINUTES DAY CARE S5[address] ADULT; ELDER ELDER PER 15 CARE CARE MINUTES DAY CARE S5[address] ADULT; ELDER ELDER PER 15 CARE CARE MINUTES DAY CARE S5[address] ADULT; ELDER ELDER PER 15 CARE CARE MINUTES DAY CARE S5[address] ADULT; ELDER ELDER PER 15 CARE CARE MINUTES ADLT SZD T4528 [facility] PROD AGENCY AGENCY UNDWEAR XTRA LG EA DEBRIDEME 81975 PAWSAT, PAWSAT, NT NAIL 9 FLAKITA Penaloza ANY METHOD 6/> DAY CARE S[address] ADULT; ELDER ELDER PER 15 CARE CARE MINUTES DAY CARE S[address] ADULT; ELDER ELDER PER 15 CARE CARE MINUTES INTERMIT A4351 [facility] SENA 9 [facility] CATH; E CENTERS E CENTERS STRAIGHT TIP W/WO COAT EA DAY CARE S[address] ADULT; ELDER ELDER PER 15 CARE CARE MINUTES DAY CARE S5[address] ADULT; ELDER ELDER PER 15 CARE CARE MINUTES DAY CARE S[address] ADULT; ELDER ELDER PER 15 CARE CARE MINUTES DAY CARE S5[address] ADULT; ELDER ELDER PER 15 CARE CARE MINUTES DAY CARE S5[address] ADULT; ELDER ELDER PER 15 CARE CARE MINUTES DAY CARE S5[address] ADULT; ELDER ELDER PER 15 CARE CARE MINUTES DAY CARE S5[address] ADULT; ELDER ELDER PER 15 CARE CARE MINUTES DAY CARE S5100 [facility] SERVICES 9 [facility] ADULT; ELDER ELDER PER 15 CARE CARE MINUTES DAY CARE S5100 [facility]EP [facility] SERVICES 9 [facility] ADULT; ELDER ELDER PER 15 CARE CARE MINUTES DAY CARE S5100 RAM[facility]EP [facility] SERVICES 9 [facility] ADULT; ELDER ELDER PER 15 CARE CARE MINUTES DAY CARE S5100 RAM[facility]EP [facility] SERVICES 9 [facility] ADULT; ELDER ELDER PER 15 CARE CARE MINUTES DAY CARE S5100 RAM[facility]DEEP [facility] SERVICES 9 [facility] ADULT; ELDER ELDER PER 15 CARE CARE MINUTES DAY CARE S5100 RAM[facility]EP [facility] SERVICES 9 [facility] ADULT; ELDER ELDER PER 15 CARE CARE MINUTES DAY CARE S5100 RAM[facility]DEEP [facility] SERVICES 9 [facility] ADULT; ELDER ELDER PER 15 CARE CARE MINUTES INCONTINE T4541 [facility] NCE 9 HOME HOME PRODUCT HEALTH HEALTH DISPOSABL AGENCY AGENCY E UNDPAD LARGE EA DAY CARE S5100 RAMANDEEP SABILLON [facility] 9 [facility] ADULT; ELDER ELDER PER 15 CARE CARE MINUTES DAY CARE S5100 RAMANDEEP SABILLON [facility] 9 [facility] ADULT; ELDER ELDER PER 15 CARE CARE MINUTES IIV3 28231 RAMAN[facility]EP S[facility] VACCINE 9 [employer] [facility] SPLIT CENTER CENTER VIRUS 0.5 ML DOSAGE IM USE ADMINISTR G0008 RAMANDEEP SABILLON ATION OF 9 [employer] HEALTH INFLUENZA CENTER CENTER VIRUS VACCINE ADLT SZD T4528 [facility] 9 HOME HOME INCONT HEALTH HEALTH PROD AGENCY AGENCY UNDWEAR XTRA LG EA DAY CARE S5100 [facility] SERVICES 9 [facility] ADULT; ELDER ELDER PER 15 CARE CARE MINUTES DAY CARE S5100 RAMANDEEP SABILLON SERVICES [address] [place] [address] ADULT; ELDER ELDER PER 15 CARE CARE MINUTES BASIC 68032 RAMANDEEPSHEREE SABILLON METABOLIC 9 [facility] PANEL INC INC CALCIUM TOTAL INTERMIT A4351 [facility] SENA 9 [facility] CATH; E CENTERS E CENTERS STRAIGHT TIP W/WO COAT EA COLLECTIO 78864 RAMANDEEPSHEREE SABILLON N VENOUS 9 [facility] [place] [address] RAMANDEEP SABILL[facility] THYROID 9 [facility] STIMULATI INC INC NG HORMONE TSH DAY CARE S5100 RAMANDEEP SABILLON [address] ADULT; ELDER ELDER PER 15 CARE CARE MINUTES DAY CARE S5100 RAMANDEEP SABILLON [address] ADULT; ELDER ELDER PER 15 CARE CARE MINUTES DAY CARE S5100 RAMANDEEPSHEREE SABILLON [address] ADULT; ELDER ELDER PER 15 CARE CARE MINUTES DAY CARE S[address] ADULT; ELDER ELDER PER 15 CARE CARE MINUTES DAY CARE S[address] ADULT; ELDER ELDER PER 15 CARE CARE MINUTES DAY CARE S[address] ADULT; ELDER ELDER PER 15 CARE CARE MINUTES DAY CARE S[address] ADULT; ELDER ELDER PER 15 CARE CARE MINUTES DAY CARE S[address] ADULT; ELDER ELDER PER 15 CARE CARE MINUTES IIV3 52592 RAMANDEEP SABILLON VACCINE 9 [facility] SPLIT CENTER CENTER VIRUS 0.5 ML DOSAGE [...] ADMINISTR G0008 RAMANDEEP SABILLON ATION OF 9 [facility] INFLUENZA C[facility] CENTER VIRUS VACCINE REPL CRUZ A4235 M E D M E D LITHIUM 9 SUPPLIES SUPPLIES MED NECES SHERYL BG MON OWN PT EA SPRING-PO A4258 M E D M E D WERED 9 SUPPLIES SUPPLIES DEVICE FOR LANCET EACH DAY CARE S5100 RAMANDEEP RAMANDEEP [address] ADULT; ELDER ELDER PER 15 CARE CARE MINUTES DAY CARE S5100 RAMANDEEP RAMANDEEP [address] ADULT; ELDER ELDER PER 15 CARE CARE MINUTES DAY CARE S[address] ADULT; ELDER ELDER PER 15 CARE CARE MINUTES DAY CARE S5100 [place] [address] [place] ADULT; ELDER ELDER PER 15 CARE CARE MINUTES DAY CARE S5100 [address]EP [address] ADULT; ELDER ELDER PER 15 CARE CARE MINUTES DAY CARE S[address] ADULT; ELDER ELDER PER 15 CARE CARE MINUTES DAY CARE S5100 RAM[address]EP [address] ADULT; ELDER ELDER PER 15 CARE CARE MINUTES DAY CARE S[address] ADULT; ELDER ELDER PER 15 CARE CARE MINUTES DAY CARE S5100 [address]EP [address] ADULT; ELDER ELDER PER 15 CARE CARE MINUTES DAY CARE S[address] ADULT; ELDER ELDER PER 15 CARE CARE MINUTES INTERMIT A4351 [facility] SENA 9 [facility] CATH; E CENTERS E CENTERS STRAIGHT TIP W/WO COAT EA DAY CARE S5100 RAMANDEEP [address]DEEP[address] ADULT; ELDER ELDER PER 15 CARE CARE MINUTES DAY CARE S5100 [address]EP [address] ADULT; ELDER ELDER PER 15 CARE CARE MINUTES DAY CARE S5100 [address]EP [address] ADULT; ELDER ELDER PER 15 CARE CARE MINUTES DAY CARE S[address] ADULT; ELDER ELDER PER 15 CARE CARE MINUTES [facility] S5100 [facility] [address] ADULT; ELDER ELDER PER 15 CARE CARE MINUTES ADLT SZD T4528 [facility] 9 HOME HOME [facility] HEALTH HEALTH PROD AGENCY AGENCY UNDWEAR XTRA LG EA DAY CARE S5100 RAMANDEEP RAMANDEEP [employer] [address] [place] [address] ADULT; ELDER ELDER PER 15 CARE CARE MINUTES DAY CARE S5100 [address]EP [address] ADULT; ELDER ELDER PER 15 CARE CARE MINUTES DAY CARE S[address] ADULT; ELDER ELDER PER 15 CARE CARE MINUTES OPHTH 44946 ROBER, ROBER, MEDICAL 9 KIT A KIT A XM&JOELLE COMPRHNSV ESTAB PT 1/> DAY CARE S5100 RAMANDEEP SABILLON [address] ADULT; ELDER ELDER PER 15 CARE CARE MINUTES DAY CARE S5100 RAMANDEEP SABILLON [address] ADULT; ELDER ELDER PER 15 CARE CARE MINUTES DAY CARE S5100 RAMANDEEP SABILLON [address] ADULT; ELDER ELDER PER 15 CARE CARE MINUTES DAY CARE S5100 RAMANDEEP SABILLON [address] ADULT; ELDER ELDER PER 15 CARE CARE MINUTES DAY CARE S5100 RAMANDEEP SABILLON [address] ADULT; ELDER ELDER PER 15 CARE CARE MINUTES BASIC 81213 RAMANDEEP SABILLON METABOLIC 9 [facility] PANEL INC INC CALCIUM TOTAL COLLECTIO 91769 RAMANDEEP SABILLON N VENOUS [address] [facility] [place] [address] RAMANDEEP SABILLON RETROPERI [address] [facility] HOSP TONEAL INC INC REAL TIME W/IMAGE COMPLETE DAY CARE S5100 RAMANDEEP SABILLON [address] ADULT; ELDER ELDER PER 15 CARE CARE MINUTES DAY CARE S5100 RAMANDEEP SABILLON [address] ADULT; ELDER ELDER PER 15 CARE CARE MINUTES DAY CARE S5100 RAMANDEEP RAMANDEEP [address] ADULT; ELDER ELDER PER 15 CARE CARE MINUTES DAY CARE S5100 RAMANDEEP SABILLON [address] ADULT; ELDER ELDER PER 15 CARE CARE MINUTES DAY CARE S5100 RAMANDEEPSHEREE SABILLON [address] ADULT; ELDER ELDER PER 15 CARE CARE MINUTES DAY CARE S5100 RAMANDEEP SABILLON [address] ADULT; ELDER ELDER PER 15 CARE CARE MINUTES DAY CARE S5100 RAMANDEEPSHEREE SABILLON [address] ADULT; ELDER ELDER PER 15 CARE CARE MINUTES DAY CARE S5100 RAMANDEEPSHEREE SABILLON [address] ADULT; ELDER ELDER PER 15 CARE CARE MINUTES DAY CARE S5100 RAMANDEEP RAMANDEEP [address] ADULT; ELDER ELDER PER 15 CARE CARE MINUTES DAY CARE S5100 RAMANDEEP RAMANDEEP [address] ADULT; ELDER ELDER PER 15 CARE CARE MINUTES DAY CARE S5100 RAMANDEEPSHEREE SABILLON [address] ADULT; ELDER ELDER PER 15 CARE CARE MINUTES DIAB ONLY A5500 [facility] FIT CSTM 9 [facility] PREP&SPL PROSTH PROSTH SHOE MX INC INC DNSITY INSRT ADD LW [id number] [facility] EXT 9 [facility]ACE VARUS/TARI PROSTH PROSTH ROBERTA WILMER INC INC STRAP PAD/LINE PAD TRANS L3620 [facility] ORTHOS 1 9 [facility] SHOE-ANOT PROSTH PROSTH HER SLD INC INC STIRRUP EXISTING REPAIR L4205 [facility] ORTHOTIC 9 BRACE BRACE DEVC PROSTH PROSTH LABOR INC INC COMPONENT PER 15 MIN DAY CARE S[address] ADULT; ELDER ELDER PER 15 CARE CARE MINUTES DAY CARE S5100 [address] ADULT; ELDER ELDER PER 15 CARE CARE MINUTES DAY CARE S5100 [address] ADULT; ELDER ELDER PER 15 CARE CARE MINUTES DAY CARE S5100 [address] ADULT; ELDER ELDER PER 15 CARE CARE MINUTES DAY CARE S5[address] ADULT; ELDER ELDER PER 15 CARE CARE MINUTES ADLT SZD [id number] [facility] HOME HOME [facility] AGENCY AGENCY UNDWEAR XTRA LG EA DAY CARE S[address] ADULT; ELDER ELDER PER 15 CARE CARE MINUTES INTERMIT [id number] OUMAR OUMAR URIN 9 [employer] [facility] CATH; E CENTERS E CENTERS STRAIGHT TIP W/WO COAT EA URINLS 15714 A C SINDHU, DIP 9 LEANDRA Hernandez STICK/TAB PSC LET REAGNT NON-AUTO MICRSCPY CULTURE 51489 LAB [facility] BACTERIAL 9 [employer] HOLDING QUANTTATI VE COLONY COUNT URINE DAY CARE S[address] ADULT; ELDER ELDER PER 15 CARE CARE MINUTES DAY CARE S5100 [address] ADULT; ELDER ELDER PER 15 CARE CARE MINUTES DAY CARE S5100 [address] ADULT; ELDER ELDER PER 15 CARE CARE MINUTES DAY CARE S5[address] ADULT; ELDER ELDER PER 15 CARE CARE MINUTES CULTURE [id number] LAB [facility] BACTERIAL 9 [employer] HOLDING QUANTTATI VE COLONY COUNT URINE CULTURE 52155 [facility] BCT 9 [employer] ISOL&PRSM HOLDING HOLDING PTV ID ISOLATE EA URINE CUL BACT 61685 [facility] AEROBIC 9 [employer] ADDL HOLDING HOLDING METHS DEFINITIV E EA ISOL SUSCEPTIB 22828 LAB [facility] LTY STDY 9 [employer] ANTIMICRB HOLDING HOLDING IAL MICRO/AGA R DILUTJ URINLS 29304 A C PHYLICIA ALMANZAR 9 LEANDRA WHITESIDE DAMASO STICK/TAB PSC LET REAGNT NON-AUTO MICRSCPY DAY CARE S[address] ADULT; ELDER ELDER PER 15 CARE CARE MINUTES DAY CARE S5[address] ADULT; ELDER ELDER PER 15 CARE CARE MINUTES DAY CARE S5[address] ADULT; ELDER ELDER PER 15 CARE CARE MINUTES DAY CARE S5[address] ADULT; ELDER ELDER PER 15 CARE CARE MINUTES DAY CARE S5[address] ADULT; ELDER ELDER PER 15 CARE CARE MINUTES DAY CARE S5[address] ADULT; ELDER ELDER PER 15 CARE CARE MINUTES DAY CARE S5[address] ADULT; ELDER ELDER PER 15 CARE CARE MINUTES DAY CARE S5[address] ADULT; ELDER ELDER PER 15 CARE CARE MINUTES DAY CARE S5[address] ADULT; ELDER ELDER PER 15 CARE CARE MINUTES INTERMIT A4351 OUMAR OUMAR URIN 9 [facility] CATH; E CENTERS E CENTERS STRAIGHT TIP W/WO COAT EA DAY CARE S5[address] ADULT; ELDER ELDER PER 15 CARE CARE MINUTES DAY CARE S5[address] ADULT; ELDER ELDER PER 15 CARE CARE MINUTES DAY CARE S[address] ADULT; ELDER ELDER PER 15 CARE CARE MINUTES DAY CARE S5100 [employer] [facility] [address] [place] [address] ADULT; ELDER ELDER PER 15 CARE CARE MINUTES DAY CARE S5100 [employer] [address] [place] [address] ADULT; ELDER ELDER PER 15 CARE CARE MINUTES DAY CARE S5100 [employer] [address] [place] [address] ADULT; ELDER ELDER PER 15 CARE CARE MINUTES ADLT SZD T4528 [facility] 9 HOME HOME [facility] PROD AGENCY AGENCY UNDWEAR XTRA LG EA DAY CARE S5100 [employer] [address] [place] [address] ADULT; ELDER ELDER PER 15 CARE CARE MINUTES DAY CARE S5100 [employer] [address] [place] [address] ADULT; ELDER ELDER PER 15 CARE CARE MINUTES DAY CARE S5100 [employer] [address] [place] [address] ADULT; ELDER ELDER PER 15 CARE CARE MINUTES DAY CARE S[address] [facility] [address] [place] [address] ADULT; ELDER ELDER PER 15 CARE CARE MINUTES DAY CARE S[address] [facility] [address] [place] [address] ADULT; ELDER ELDER PER 15 CARE CARE MINUTES DAY CARE S[address] [facility] [address] [place] [address] ADULT; ELDER ELDER PER 15 CARE CARE MINUTES DAY CARE S[address] [facility] [address] [place] [address] ADULT; ELDER ELDER PER 15 CARE CARE MINUTES DAY CARE S[address] [facility] [address] [place] [address] ADULT; ELDER ELDER PER 15 CARE CARE MINUTES DAY CARE S[address] [facility] [address] [place] [address] ADULT; ELDER ELDER PER 15 CARE CARE MINUTES DAY CARE S[address] [facility] [address] [place] [address] ADULT; ELDER ELDER PER 15 CARE CARE MINUTES DAY CARE S[address] [facility] [address] [place] [address] ADULT; ELDER ELDER PER 15 CARE CARE MINUTES DAY CARE S[address] [facility] [address] [place] [address] ADULT; ELDER ELDER PER 15 CARE CARE MINUTES DAY CARE S5100 [employer] [address] [place] [address] ADULT; ELDER ELDER PER 15 CARE CARE MINUTES DAY CARE S5100 [employer] [address] [place] [address] ADULT; ELDER ELDER PER 15 CARE CARE MINUTES DAY CARE S[address] [facility] [address] [place] [address] ADULT; ELDER ELDER PER 15 CARE CARE MINUTES DAY CARE S5100 RAMANDEEP RAMANDEEP [address] ADULT; ELDER ELDER PER 15 CARE CARE MINUTES DAY CARE S5100 RAMANDEEP RAMANDEEP [address] ADULT; ELDER ELDER PER 15 CARE CARE MINUTES DAY CARE S5100 RAMANDEEP RAMANDEEP [address] ADULT; ELDER ELDER PER 15 CARE CARE MINUTES DAY CARE S5100 RAMANDEEP RAMANDEEP [address] ADULT; ELDER ELDER PER 15 CARE CARE MINUTES TRAPEZE E0940 [facility] BAR 9 HOME MED HOME MED FREESTAND EQUIP. EQUIP. [facility] COMPLETE WITH GRAB BAR HOS BED E0260 [facility] TOPETE SEMI-ELEC 9 HOME MED HOME MED W/ANY EQUIP. EQUIP. TYPE SIDE [facility] RAIL W/MATTRSS DAY CARE S5100 RAMANDEEP RAMANDEEP [address] ADULT; ELDER ELDER PER 15 CARE CARE MINUTES DAY CARE S[address] ADULT; ELDER ELDER PER 15 CARE CARE MINUTES DAY CARE S5[address] ADULT; ELDER ELDER PER 15 CARE CARE MINUTES DAY CARE S5[address] ADULT; ELDER ELDER PER 15 CARE CARE MINUTES DAY CARE S5[address] ADULT; ELDER ELDER PER 15 CARE CARE MINUTES DAY CARE S5[address] ADULT; ELDER ELDER PER 15 CARE CARE MINUTES COLLECTIO 05767 Mary HANDY N VENOUS 9 LEANDRA Messer BLOOD PSC VENIPUNCT URE PROTHROMB 02160 Mary HANDY IN TIME 9 LEANDRA Messer PSC BASIC 61113 [facility] METABOLIC 9 AMERIC AMERIC PANEL HOLDING HOLDING CALCIUM TOTAL DRUG 81103 [facility] ASSAY 9 AMERIC AMERIC VALPROIC HOLDING HOLDING DIPROPYLA CETIC ACID TOTAL ADLT SZD T4528 [facility] HOME [facility] PROD AGENCY AGENCY UNDWEAR XTRA LG EA DAY CARE S[address] ADULT; ELDER ELDER PER 15 CARE CARE MINUTES DAY CARE S5[address] ADULT; ELDER ELDER PER 15 CARE CARE MINUTES DAY CARE S5[address] ADULT; ELDER ELDER PER 15 CARE CARE MINUTES DAY CARE S5[address] ADULT; ELDER ELDER PER 15 CARE CARE MINUTES URINLS 47809 A Ayde MOBLEY, A DIP 9 LEANDRA WHITESIDE C STICK/TAB PSC LET REAGNT NON-AUTO MICRSCPY INCONTINE T4541 [facility] NCE 9 HOME HOME PRODUCT [facility]ALTH HEALTH DISPOSABL AGENCY AGENCY E UNDPAD LARGE EA DAY CARE S[address] ADULT; ELDER ELDER PER 15 CARE CARE MINUTES DAY CARE S5[address] ADULT; ELDER ELDER PER 15 CARE CARE MINUTES DAY CARE S5[address] ADULT; ELDER ELDER PER 15 CARE CARE MINUTES DAY CARE S5[address] ADULT; ELDER ELDER PER 15 CARE CARE MINUTES TRAPEZE E0940 [facility] SCHROEDER 9 HOME MED HOME MED FREESTAND EQUIP. EQUIP. ING [facility] COMPLETE WITH GRAB [facility] HOS BED E0260 [facility] TOPETE SEMI-ELEC 9 HOME MED HOME MED W/ANY EQUIP. EQUIP. TYPE SIDE [facility] RAIL W/MATTRSS DAY CARE S[address] ADULT; ELDER ELDER PER 15 CARE CARE MINUTES DAY CARE S5[address] ADULT; ELDER ELDER PER 15 CARE CARE MINUTES DAY CARE S5[address] ADULT; ELDER ELDER PER 15 CARE CARE MINUTES DAY CARE S5[address] ADULT; ELDER ELDER PER 15 CARE CARE MINUTES DAY CARE S5[address] ADULT; ELDER ELDER PER 15 CARE CARE MINUTES DAY CARE S5[address] ADULT; ELDER ELDER PER 15 CARE CARE MINUTES DAY CARE S5[address] ADULT; ELDER ELDER PER 15 CARE CARE MINUTES DAY CARE S5[address] ADULT; ELDER ELDER PER 15 CARE CARE MINUTES DAY CARE S5[address] ADULT; ELDER ELDER PER 15 CARE CARE MINUTES DAY CARE S5[address] ADULT; ELDER ELDER PER 15 CARE CARE MINUTES DAY CARE S5[address] ADULT; ELDER ELDER PER 15 CARE CARE MINUTES SUSCEPTIB 60938 [facility] LTY STDY 9 AMERIC AMERIC ANTIMICRB HOLDING HOLDING IAL MICRO/AGA R DILUTJ CULTURE 42588 [facility] BCT 9 AMERIC AMERIC ISOL&PRSM HOLDING HOLDING PTV ID ISOLATE EA URINE CUL BACT 04619 [facility] AEROBIC 9 AMERIC AMERIC ADDL HOLDING HOLDING METHS DEFINITIV E EA ISOL CULTURE 19642 LAB [facility] BACTERIAL 9 AMERIC AMERIC HOLDING HOLDING QUANTTATI VE COLONY COUNT URINE URINLS 93390 A C LEANDRA, A DIP 9 LEANDRA WHITESIDE C STICK/TAB PSC LET REAGNT NON-AUTO MICRSCPY DAY CARE S[address] ADULT; ELDER ELDER PER 15 CARE CARE MINUTES DAY CARE S5[address] ADULT; ELDER ELDER PER 15 CARE CARE MINUTES DAY CARE S5[address] ADULT; ELDER ELDER PER 15 CARE CARE MINUTES DAY CARE S5[address] ADULT; ELDER ELDER PER 15 CARE CARE MINUTES CERVICAL L0172 PROSTHETI PROSTHETI COLLAR 9 C&ORTHOTI C&ORTHOTI SEMI-RIGI C C D FOAM ASSOCIATE ASSOCIATE TWO [employer] S,[facility] PREFAB DAY CARE S[address] ADULT; ELDER ELDER PER 15 CARE CARE MINUTES DAY CARE S5[address] ADULT; ELDER ELDER PER 15 CARE CARE MINUTES TRAPEZE E0940 [facility] SCHROEDER 9 HOME MED HOME MED FREESTAND EQUIP. EQUIP. [facility] COMPLETE WITH GRAB BAR HOS BED E0260 [facility] TOPETE SEMI-ELEC 9 HOME MED HOME MED W/ANY EQUIP. EQUIP. TYPE SIDE [facility] RAIL W/MATTRSS ADLT SZD T4528 [facility] 9 HOME HOME INCONT HEALTH HEALTH PROD AGENCY AGENCY EMIL XTRA LG EA DAY CARE S[address] ADULT; ELDER ELDER PER 15 CARE CARE MINUTES DAY CARE S5[address] ADULT; ELDER ELDER PER 15 CARE CARE MINUTES DAY CARE S5[address] ADULT; ELDER ELDER PER 15 CARE CARE MINUTES DAY CARE S5[address] ADULT; ELDER ELDER PER 15 CARE CARE MINUTES DAY CARE S5[address] ADULT; ELDER ELDER PER 15 CARE CARE MINUTES URINLS 59072 A Ayde MOBLEY, Mary DIP 9 LEANDRA Messer STICK/TAB PSC LET REAGNT NON-AUTO MICRSCPY INTERMIT A4351 [facility] O[facility]AR URIN 9 [facility] CATH; E CENTERS E CENTERS STRAIGHT TIP W/WO COAT EA DAY CARE S5[address] ADULT; ELDER ELDER PER 15 CARE CARE MINUTES DAY CARE S5[address] ADULT; ELDER ELDER PER 15 CARE CARE MINUTES DAY CARE S5[address] ADULT; ELDER ELDER PER 15 CARE CARE MINUTES DAY CARE S5[address] ADULT; ELDER ELDER PER 15 CARE CARE MINUTES DAY CARE S5[address] ADULT; ELDER ELDER PER 15 CARE CARE MINUTES DAY CARE S5[address] ADULT; ELDER ELDER PER 15 CARE CARE MINUTES DAY CARE S5[address] ADULT; ELDER ELDER PER 15 CARE CARE MINUTES CUL BACT 39957 [facility] AEROBIC 9 AMERIC AMERIC ADDL HOLDING HOLDING METHS DEFINITIV E EA ISOL CULTURE 33247 LAB [facility] BCT 9 AMERIC AMERIC ISOL&PRSM HOLDING HOLDING PTV ID ISOLATE EA URINE CULTURE 45799 LAB [facility] BACTERIAL 9 AMERIC AMERIC HOLDING HOLDING QUANTTATI VE COLONY COUNT URINE SUSCEPTIB 07989 LAB [facility] LTY STDY 9 AMERIC AMERIC ANTIMICRB HOLDING HOLDING IAL MICRO/AGA R DILUTJ URINLS 65838 Mary HANDY DIP 9 LEANDRA Messer STICK/TAB PSC LET REAGNT NON-AUTO MICRSCPY TRAPEZE E0940 [facility] Y[facility] BAR 9 HOME MED HOME MED FREESTAND EQUIP. EQUIP. [facility] COMPLETE WITH GRAB BAR HOS BED E0260 [facility] Y[facility]N SEMI-ELEC 9 HOME MED HOME MED W/ANY EQUIP. EQUIP. TYPE SIDE [facility] RAIL W/MATTRSS DAY CARE S[address] ADULT; ELDER ELDER PER 15 CARE CARE MINUTES DAY CARE S5[address] ADULT; ELDER ELDER PER 15 CARE CARE MINUTES DAY CARE S5[address] ADULT; ELDER ELDER PER 15 CARE CARE MINUTES DAY CARE S5[address] ADULT; ELDER ELDER PER 15 CARE CARE MINUTES DAY CARE S5[address] ADULT; ELDER ELDER PER 15 CARE CARE MINUTES DAY CARE S5[address] ADULT; ELDER ELDER PER 15 CARE CARE MINUTES DAY CARE S5[address] ADULT; ELDER ELDER PER 15 CARE CARE MINUTES INTERMIT A4351 [facility]; E CENTERS E CENTERS STRAIGHT TIP W/WO COAT EA DAY CARE S5[address] ADULT; ELDER ELDER PER 15 CARE CARE MINUTES DAY CARE S5[address] ADULT; ELDER ELDER PER 15 CARE CARE MINUTES ADLT SZD T4528 [facility] 9 HOME HOME INCONT HEALTH HEALTH PROD AGENCY AGENCY UNDWEAR XTRA LG EA DAY CARE S[address] ADULT; ELDER ELDER PER 15 CARE [...] HOME BLD GLU MON-50 DAY CARE S5[address] ADULT; ELDER ELDER PER 15 CARE CARE MINUTES DAY CARE S5[address] ADULT; ELDER ELDER PER 15 CARE CARE MINUTES DAY CARE S5[address] ADULT; ELDER ELDER PER 15 CARE CARE MINUTES DAY CARE S5[address] ADULT; ELDER ELDER PER 15 CARE CARE MINUTES SUSCEPTIB 75890 [facility] LTY STDY 8 AMERIC AMERIC ANTIMICRB HOLDING HOLDING IAL MICRO/AGA R DILUTJ CULTURE 37618 LAB [facility] BCT 8 AMERIC AMERIC ISOL&PRSM HOLDING HOLDING PTV ID ISOLATE EA URINE CULTURE 71432 LAB [facility] LAB AN[facility] BACTERIAL 8 AMERIC AMERIC HOLDING HOLDING QUANTTATI VE COLONY COUNT URINE CUL BACT 75385 LAB [facility] AEROBIC 8 AMERIC AMERIC ADDL HOLDING HOLDING METHS DEFINITIV E EA ISOL DAY CARE S[address] ADULT; ELDER ELDER PER 15 CARE CARE MINUTES TRAPEZE E0940 Y[facility]N SCHROEDER 8 HOME MED HOME MED FREESTAND EQUIP. EQUIP. ING [facility] COMPLETE WITH GRAB BAR HOS BED E0260 Y[facility]N TOPETE SEMI-ELEC 8 HOME MED HOME MED W/ANY EQUIP. EQUIP. TYPE SIDE [facility] RAIL W/MATTRSS DAY CARE S[address] ADULT; ELDER ELDER PER 15 CARE CARE MINUTES DAY CARE S5[address] ADULT; ELDER ELDER PER 15 CARE CARE MINUTES DAY CARE S5[address] ADULT; ELDER ELDER PER 15 CARE CARE MINUTES DAY CARE S5[address] ADULT; ELDER ELDER PER 15 CARE CARE MINUTES DAY CARE S5[address] ADULT; ELDER ELDER PER 15 CARE CARE MINUTES DAY CARE S5[address] ADULT; ELDER ELDER PER 15 CARE CARE MINUTES DAY CARE S5[address] ADULT; ELDER ELDER PER 15 CARE CARE MINUTES DAY CARE S5[address] ADULT; ELDER ELDER PER 15 CARE CARE MINUTES DAY CARE S5[address] ADULT; ELDER ELDER PER 15 CARE CARE MINUTES INTERMIT A4351 [facility]AR SENA 8 [facility] CATH; E CENTERS E CENTERS STRAIGHT TIP W/WO COAT EA DAY CARE S5[address] ADULT; ELDER ELDER PER 15 CARE CARE MINUTES DAY CARE S5[address] ADULT; ELDER ELDER PER 15 CARE CARE MINUTES DAY CARE S5[address] ADULT; ELDER ELDER PER 15 CARE CARE MINUTES DAY CARE S5[address] ADULT; ELDER ELDER PER 15 CARE CARE MINUTES DAY CARE S5[address] ADULT; ELDER ELDER PER 15 CARE CARE MINUTES TRAPEZE E0940 YOSELYN SCHROEDER 8 HOME MED HOME MED FREESTAND EQUIP. EQUIP. ING [facility] COMPLETE WITH [facility] B[facility] E0260 YOSELYN TOPETE SEMI-ELEC 8 HOME MED HOME MED W/ANY EQUIP. EQUIP. TYPE SIDE [facility] RAIL W/MATTRSS DAY CARE S[address] ADULT; ELDER ELDER PER 15 CARE CARE MINUTES DAY CARE S5[address] ADULT; ELDER ELDER PER 15 CARE CARE MINUTES DAY CARE S5[address] ADULT; ELDER ELDER PER 15 CARE CARE MINUTES DAY CARE S5[address] ADULT; ELDER ELDER PER 15 CARE CARE MINUTES DAY CARE S5[address] ADULT; ELDER ELDER PER 15 CARE CARE MINUTES ADLT SZD T4528 [facility] 8 HOME HOME [facility] PROD AGENCY AGENCY UNDWEAR XTRA LG EA DAY CARE S[address] ADULT; ELDER ELDER PER 15 CARE CARE MINUTES DAY CARE S5[address] ADULT; ELDER ELDER PER 15 CARE CARE MINUTES DAY CARE S5[address] ADULT; ELDER ELDER PER 15 CARE CARE MINUTES DAY CARE S5[address] ADULT; ELDER ELDER PER 15 CARE CARE MINUTES DAY CARE S5[address] ADULT; ELDER ELDER PER 15 CARE CARE MINUTES DAY CARE S5[address] ADULT; ELDER ELDER PER 15 CARE CARE MINUTES URINLS 46381 A Ayde MOBLEY, A DIP 8 LEANDRA Messer STICK/TAB PSC LET REAGNT NON-AUTO MICRSCPY IIV3 33740 RAMANDEEP SABILLON VACCINE 8 [facility] CENTER VIRUS 0.5 ML DOSAGE IM USE DAY CARE S5[address] ADULT; ELDER ELDER PER 15 CARE CARE MINUTES ADMINISTR G0008 RAMANDEEP SABILLON ATION OF 8 [facility] INFLUENZA C[facility] CENTER VIRUS VACCINE DAY CARE S5[address] ADULT; ELDER ELDER PER 15 CARE CARE MINUTES DAY CARE S5[address] ADULT; ELDER ELDER PER 15 CARE CARE MINUTES DAY CARE S5[address] ADULT; ELDER ELDER PER 15 CARE CARE MINUTES DAY CARE S5[address] ADULT; ELDER ELDER PER 15 CARE CARE MINUTES DAY CARE S5[address] ADULT; ELDER ELDER PER 15 CARE CARE MINUTES DAY CARE S5[address] ADULT; ELDER ELDER PER 15 CARE CARE MINUTES TRAPEZE E0940 YOSELYN SCHROEDER 8 HOME MED HOME MED FREESTAND EQUIP. EQUIP. [facility] COMPLETE WITH GRAB ELDA CUL BACT 02962 LAB [facility] AEROBIC 8 AMERIC AMERIC ADDL HOLDING HOLDING METHS DEFINITIV E EA ISOL CULTURE 58063 LAB [facility] BACTERIAL 8 AMERIC AMERIC HOLDING HOLDING QUANTTATI VE COLONY COUNT URINE CULTURE 81751 LAB AN[facility] LAB ANIK[facility] BCT 8 AMERIC AMERIC ISOL&PRSM HOLDING HOLDING PTV ID ISOLATE EA URINE SUSCEPTIB 71162 LAB [facility] LTY STDY 8 AMERIC AMERIC ANTIMICRB HOLDING HOLDING IAL MICRO/AGA R DILUTJ HOS BED E0260 Y[facility]N TOPETE SEMI-ELEC 8 HOME MED HOME MED W/ANY EQUIP. EQUIP. TYPE SIDE [facility] RAIL W/MATTRSS INTERMIT A4351 OUMAR OUMAR URIN 8 [facility] CATH; E CENTERS E CENTERS STRAIGHT TIP W/WO COAT EA DAY CARE S5[address] ADULT; ELDER ELDER PER 15 CARE CARE MINUTES DAY CARE S5100 [address] ADULT; ELDER ELDER PER 15 CARE CARE MINUTES DAY CARE S5100 [address] ADULT; ELDER ELDER PER 15 CARE CARE MINUTES DAY CARE S5100 [address] ADULT; ELDER ELDER PER 15 CARE CARE MINUTES DAY CARE S5100 [address] ADULT; ELDER ELDER PER 15 CARE CARE MINUTES DAY CARE S5100 [address] ADULT; ELDER ELDER PER 15 CARE CARE MINUTES DAY CARE S5100 [address] ADULT; ELDER ELDER PER 15 CARE CARE MINUTES DAY CARE S5100 [address] ADULT; ELDER ELDER PER 15 CARE CARE MINUTES DAY CARE S5[address] ADULT; ELDER ELDER PER 15 CARE CARE MINUTES ADLT SZD T4528 [facility] 8 HOME HOME INCONT HEALTH HEALTH PROD AGENCY AGENCY UNDWEAR XTRA LG EA DAY CARE S5[address] ADULT; ELDER ELDER PER 15 CARE [...] CALIBRATO R SOLUTION/ CHIPS DAY CARE S5[address] ADULT; ELDER ELDER PER 15 CARE CARE MINUTES DAY CARE S5100 [address] ADULT; ELDER ELDER PER 15 CARE CARE MINUTES DAY CARE S5100 [address] ADULT; ELDER ELDER PER 15 CARE CARE MINUTES DAY CARE S5100 [address] ADULT; ELDER ELDER PER 15 CARE CARE MINUTES DAY CARE S5100 [address] ADULT; ELDER ELDER PER 15 CARE CARE MINUTES DAY CARE S5100 [address] ADULT; ELDER ELDER PER 15 CARE CARE MINUTES DAY CARE S5100 [address] ADULT; ELDER ELDER PER 15 CARE CARE MINUTES DAY CARE S5100 [address] ADULT; ELDER ELDER PER 15 CARE CARE MINUTES DAY CARE S5100 [address] ADULT; ELDER ELDER PER 15 CARE CARE MINUTES DAY CARE S5100 [address] ADULT; ELDER ELDER PER 15 CARE CARE MINUTES DAY CARE S5100 [address] ADULT; ELDER ELDER PER 15 CARE CARE MINUTES DAY CARE S5100 [address] ADULT; ELDER ELDER PER 15 CARE CARE MINUTES DAY CARE S5[address] ADULT; ELDER ELDER PER 15 CARE CARE MINUTES DAY CARE S5[address] ADULT; ELDER ELDER PER 15 CARE CARE MINUTES DAY CARE S5[address] ADULT; ELDER ELDER PER 15 CARE CARE MINUTES DAY CARE S5100 [address] ADULT; ELDER ELDER PER 15 CARE CARE MINUTES DAY CARE S5[address] ADULT; ELDER ELDER PER 15 CARE CARE MINUTES DAY CARE S5100 [address] ADULT; ELDER ELDER PER 15 CARE CARE MINUTES DAY CARE S5100 [address] ADULT; ELDER ELDER PER 15 CARE CARE MINUTES DAY CARE S5100 [address] ADULT; ELDER ELDER PER 15 CARE CARE MINUTES DAY CARE S5100 [address] ADULT; ELDER ELDER PER 15 CARE CARE MINUTES OPHTH 47843 ROBER, ROBER, MEDICAL 8 KIT A KIT A XM&JOELLE COMPRE NEW PT 1/> VST DAY CARE S5100 [address] ADULT; ELDER ELDER PER 15 CARE CARE MINUTES TRAPEZE E0940 YOSELYN SCHROEDER 8 HOME MED HOME MED FREESTAND EQUIP. EQUIP. ING [facility] COMPLETE WITH GRAB [facility] HOS BED E0260 YOSELYN TOPETE SEMI-ELEC 8 HOME MED HOME MED W/ANY EQUIP. EQUIP. TYPE SIDE [facility] RAIL W/MATTRSS DAY CARE S[address] ADULT; ELDER ELDER PER 15 CARE CARE MINUTES DAY CARE S5100 [address] ADULT; ELDER ELDER PER 15 CARE CARE MINUTES DAY CARE S5100 [address] ADULT; ELDER ELDER PER 15 CARE CARE MINUTES DAY CARE S5100 [address] ADULT; ELDER ELDER PER 15 CARE CARE MINUTES DAY CARE S5100 [address] ADULT; ELDER ELDER PER 15 CARE CARE MINUTES DAY CARE S5100 [address] ADULT; ELDER ELDER PER 15 CARE CARE MINUTES DAY CARE S5100 [address] ADULT; ELDER ELDER PER 15 CARE CARE MINUTES INTERMIT A[address] [facility] C[facility]; E CENTERS E CENTERS STRAIGHT TIP W/WO COAT EA DAY CARE S5100 RAMANDEEP SABILLON SERVICES [address] [place] [address] ADULT; ELDER ELDER PER 15 CARE CARE MINUTES DAY CARE S5100 RAMANDEEPSHEREE SABILLON SERVICES [address] [place] [address] ADULT; ELDER ELDER PER 15 CARE CARE MINUTES DAY CARE S5100 RAMANDEEP SABILLON SERVICES [address] [place] [address] ADULT; ELDER ELDER PER 15 CARE CARE MINUTES DAY CARE S5100 RAMANDEEPSHEREE SABILLON SERVICES [address] [place] [address] ADULT; ELDER ELDER PER 15 CARE CARE MINUTES DAY CARE S5100 RAMANDEEPSHEREE SABILLON [address] ADULT; ELDER ELDER PER 15 CARE CARE MINUTES DAY CARE S5100 RAMANDEEPSHEREE SABILLON SERVICES [address] [place] [address] ADULT; ELDER ELDER PER 15 CARE CARE MINUTES INCONTINE T4541 [facility] 8 HOME HOME PRODUCT HEALTH HEALTH DISPOSABL AGENCY AGENCY E UNDPAD LARGE EA DAY CARE S5100 RAMANDEEP SABILLON [address] ADULT; ELDER ELDER PER 15 CARE CARE MINUTES ADLT SZD T4528 [facility] 8 HOME HOME INCONT HEALTH HEALTH PROD AGENCY AGENCY UNDWEAR XTRA LG EA DAY CARE S5100 RAMANDEEP SABILLON [address] ADULT; ELDER ELDER PER 15 CARE CARE MINUTES DAY CARE S5100 RAMANDEEP SABILLON SERVICES [address] [place] [address] ADULT; ELDER ELDER PER 15 CARE CARE MINUTES DAY CARE S5100 RAMANDEEP SABILLON SERVICES [address] [place] [address] ADULT; ELDER ELDER PER 15 CARE CARE MINUTES TRAPEZE E0940 YOSELYN SCHROEDER 8 HOME MED HOME MED FREESTAND EQUIP. EQUIP. ING [facility] COMPLETE WITH [facility] HOS BED E0260 YOSELYN TOPETE SEMI-ELEC 8 HOME MED HOME MED W/ANY EQUIP. EQUIP. TYPE SIDE [facility] RAIL W/MATTRSS DAY CARE S5100 [facility] [address] [place] [address] ADULT; ELDER ELDER PER 15 CARE CARE MINUTES DAY CARE S5100 [facility] [address] [place] [address] ADULT; ELDER ELDER PER 15 CARE CARE MINUTES DAY CARE S5100 [facility] [address] [place] [address] ADULT; ELDER ELDER PER 15 CARE CARE MINUTES DRUG 20746 [facility]DEEP [facility]AY 8 [facility] VALPROIC INC INC DIPROPYLA CETIC ACID TOTAL ECG 42293 RAMANDEEP BESSON, ROUTINE [address] [facility] W/LEAST PROF SERV 12 LDS I&R ONLY COMPREHEN 91104 RAMANDEEP RAMANDEEP SIVE 8 [facility] METABOLIC INC INC PANEL CREATINE 85746 [facility] KINASE MB 8 [facility] [place] [address] JAYLENE BURRIS, HEAD/BRAI 8 MEDICAL YONY P N W/O IMAGING CONTRAST ASSOCI[place] NFS [address]87 [facility] THER 8 [facility] PROPH/DX INC INC 1ST >1 HR ECG 31516 [facility]DE[facility] ROUTINE 8 [facility] ECG INC INC W/LEAST 12 LDS TRCG ONLY W/O I&R CREATINE 89324 [facility] KINASE 8 [facility] TOTAL INC INC PROTHROMB 27729 RAMANDEEP S[facility]ILL[facility] IN TIME 8 [facility] INC INC GROUND A0425 [facility] 8 AMBULANCE AMBULANCE PER SERVICE SERVICE STATUTE MILE 3D 28505 JAYLENE BURRIS, RENDERING 8 MEDICAL YONY P IMAGING W/INTERP& ASSOCIATE POSTPROC S DIFF WORK STATION AMB [id number] [facility] SERVICE 8 AMBULANCE AMBULANCE ALS SERVICE SERVICE EMERGENCY TRANSPORT LEVEL [address] [place] [address] [facility] TROPONIN 8 [facility] QUANTITAT INC INC TAYLER BLOOD 46299 [facility]DE[facility] COUNT 8 [facility] COMPLETE INC INC AUTO&AUTO DIFRNTL WBC THROMBOPL 42316 [facility] ASTIN 8 [facility] TIME INC INC PARTIAL PLASMA/WH OLE BLOOD DAY CARE S5100 [facility] [address] [place] [address] ADULT; ELDER ELDER PER 15 CARE CARE MINUTES DAY CARE S5100 [facility] [address] [place] [address] ADULT; ELDER ELDER PER 15 CARE CARE MINUTES DAY CARE S5100 [facility] [address] [place] [address] ADULT; ELDER ELDER PER 15 CARE CARE MINUTES DAY CARE S5100 [facility] [address] [place] [address] ADULT; ELDER ELDER PER 15 CARE CARE MINUTES BLD GLU A4253 M E D M E D TEST/REAG 8 SUPPLIES SUPPLIES T STRIPS HOME BLD GLU MON-50 DAY CARE S[address] ADULT; ELDER ELDER PER 15 CARE CARE MINUTES DAY CARE S[address] ADULT; ELDER ELDER PER 15 CARE CARE MINUTES TRAPEZE E0940 YOSELYN TOPETE BAR 8 HOME MED HOME MED FREESTAND EQUIP. EQUIP. ING [employer] COMPLETE WITH GRAB BAR HOS BED E0260 YOSELYN TOPETE SEMI-ELEC 8 HOME MED HOME MED W/ANY EQUIP. EQUIP. TYPE SIDE [facility] RAIL W/MATTRSS DAY CARE S[address] ADULT; ELDER ELDER PER 15 CARE CARE MINUTES DAY CARE S[address] ADULT; ELDER ELDER PER 15 CARE CARE MINUTES DAY CARE S[address] ADULT; ELDER ELDER PER 15 CARE CARE MINUTES MEDICAL 99306 [facility] [address] [place] [address] ASSMT&IVN BANK ACCT TJ INDIV EACH 15 PR DAY CARE S[address] ADULT; ELDER ELDER PER 15 CARE CARE MINUTES DAY CARE S[address] ADULT; ELDER ELDER PER 15 CARE CARE MINUTES ADLT SZD [id number] [facility] 8 HOME HOME INCONT HEALTH HEALTH PROD AGENCY AGENCY UNDWEAR XTRA LG EA DAY CARE S[address] ADULT; ELDER ELDER PER 15 CARE CARE MINUTES DAY CARE S5[address] ADULT; ELDER ELDER PER 15 CARE CARE MINUTES DAY CARE S[address] ADULT; ELDER ELDER PER 15 CARE CARE MINUTES DAY CARE S[address] ADULT; ELDER ELDER PER 15 CARE CARE MINUTES TRAPEZE [id number] YOSELYN SCHROEDER 8 HOME MED HOME MED FREESTAND EQUIP. EQUIP. ING [employer] COMPLETE WITH GRAB BAR HOS BED [id number] YOSELYN GUAJARDORELL SEMI-ELEC 8 HOME MED HOME MED W/ANY EQUIP. EQUIP. TYPE [facility] RAIL W/MATTRSS DAY CARE [id number] ADULT; ELDER ELDER PER 15 CARE CARE MINUTES DAY CARE S5100 [address] ADULT; ELDER ELDER PER 15 CARE CARE MINUTES DAY CARE S5100 [address] ADULT; ELDER ELDER PER 15 CARE CARE MINUTES DAY CARE S5100 [address] ADULT; ELDER ELDER PER 15 CARE CARE MINUTES DAY CARE S5100 [address] ADULT; ELDER ELDER PER 15 CARE CARE MINUTES DAY CARE S5100 [address] ADULT; ELDER ELDER PER 15 CARE CARE MINUTES DAY CARE S5100 [address] ADULT; ELDER ELDER PER 15 CARE CARE MINUTES INTERMIT [id number] OUMAR SENA 8 [facility] CATH; E CENTERS E CENTERS STRAIGHT TIP W/WO COAT EA DAY CARE S5100 [address] ADULT; ELDER ELDER PER 15 CARE CARE MINUTES DAY CARE S5100 [address] ADULT; ELDER ELDER PER 15 CARE CARE MINUTES DAY CARE S5100 [address] ADULT; ELDER ELDER PER 15 CARE CARE MINUTES DAY CARE S5100 [address] ADULT; ELDER ELDER PER 15 CARE CARE MINUTES DAY CARE S5100 [address] ADULT; ELDER ELDER PER 15 CARE CARE MINUTES DAY CARE S5100 [address] ADULT; ELDER ELDER PER 15 CARE CARE MINUTES DAY CARE S5100 [address] ADULT; ELDER ELDER PER 15 CARE CARE MINUTES DAY CARE S5100 [address] ADULT; ELDER ELDER PER 15 CARE CARE MINUTES DAY CARE S5100 [address] ADULT; ELDER ELDER PER 15 CARE CARE MINUTES DAY CARE S5100 [address] ADULT; ELDER ELDER PER 15 CARE CARE MINUTES DAY CARE S5100 [address] ADULT; ELDER ELDER PER 15 CARE CARE MINUTES DAY CARE S5100 [address] ADULT; ELDER ELDER PER 15 CARE CARE MINUTES DAY CARE S5100 [address] ADULT; ELDER ELDER PER 15 CARE CARE MINUTES TRAPEZE [id number] YOSELYN TOPETE BAR 8 HOME MED HOME MED FREESTAND EQUIP. EQUIP. ING [facility] COMPLETE WITH GRAB BAR HOS BED [id number] YOSELYN TOPETE SEMI-ELEC 8 HOME MED HOME MED W/ANY EQUIP. EQUIP. TYPE SIDE [facility] RAIL W/MATTRSS AIR PRESS [id number] YOSELYN TOPETE PAD 8 HOME MED HOME MED MATTRSS EQUIP. EQUIP. STD [facility] MATTRSS LENGTH&WI DTH DAY CARE S5[address] ADULT; ELDER ELDER PER 15 CARE CARE MINUTES DAY CARE S5100 [address] ADULT; ELDER ELDER PER 15 CARE CARE MINUTES DAY CARE S5100 [address] ADULT; ELDER ELDER PER 15 CARE CARE MINUTES DAY CARE S5100 [address] ADULT; ELDER ELDER PER 15 CARE CARE MINUTES DAY CARE S5100 [address] ADULT; ELDER ELDER PER 15 CARE CARE MINUTES DAY CARE S5100 [address] ADULT; ELDER ELDER PER 15 CARE CARE MINUTES DAY CARE S5100 [address] ADULT; ELDER ELDER PER 15 CARE CARE MINUTES ADLT SZD [id number] [facility] 8 HOME HOME [facility] HEALTH HEALTH PROD AGENCY AGENCY UNDWEAR XTRA LG EA DAY CARE S5100 [address] ADULT; ELDER ELDER PER 15 CARE CARE MINUTES DAY CARE S5100 [address] ADULT; ELDER ELDER PER 15 CARE CARE MINUTES DAY CARE S5100 [address] ADULT; ELDER ELDER PER 15 CARE CARE MINUTES BLD GLU A4253 M E D M E D TEST/REAG 8 SUPPLIES SUPPLIES T STRIPS HOME BLD GLU SAT-50 DAY CARE S5100 [address] ADULT; ELDER ELDER PER 15 CARE CARE MINUTES DAY CARE S5100 [address] ADULT; ELDER ELDER PER 15 CARE CARE MINUTES DAY CARE S5100 [address] ADULT; ELDER ELDER PER 15 CARE CARE MINUTES DAY CARE S5100 [address] ADULT; ELDER ELDER PER 15 CARE CARE MINUTES DAY CARE S5100 [address] ADULT; ELDER ELDER PER 15 CARE CARE MINUTES DAY CARE S5100 [address] ADULT; ELDER ELDER PER 15 CARE CARE MINUTES DAY CARE S5100 [address] ADULT; ELDER ELDER PER 15 CARE CARE MINUTES DAY CARE S5100 [address] ADULT; ELDER ELDER PER 15 CARE CARE MINUTES DAY CARE S5100 [address] ADULT; ELDER ELDER PER 15 CARE CARE MINUTES INTERMIT [id number] [facility] CATH; E CENTERS E CENTERS STRAIGHT TIP W/WO COAT EA DAY CARE S5100 [address] ADULT; ELDER ELDER PER 15 CARE CARE MINUTES DAY CARE S5100 [address] ADULT; ELDER ELDER PER 15 CARE CARE MINUTES DAY CARE S5100 [address] ADULT; ELDER ELDER PER 15 CARE CARE MINUTES DAY CARE S5100 [address] ADULT; ELDER ELDER PER 15 CARE CARE MINUTES DAY CARE S5100 [address] ADULT; ELDER ELDER PER 15 CARE CARE MINUTES ADLT SZD [id number] [facility] 8 HOME HOME [facility] HEALTH HEALTH PROD AGENCY AGENCY UNDWEAR XTRA LG EA DAY CARE S5100 [address] ADULT; ELDER ELDER PER 15 CARE CARE MINUTES DAY CARE S5100 [address] ADULT; ELDER ELDER PER 15 CARE CARE MINUTES DAY CARE S5100 [facility] [address] [place] [address] ADULT; ELDER ELDER PER 15 CARE CARE MINUTES DAY CARE S5100 [facility] [address] [place] [address] ADULT; ELDER ELDER PER 15 CARE CARE MINUTES DAY CARE S5100 [facility] [address] [place] [address] ADULT; ELDER ELDER PER 15 CARE CARE MINUTES DAY CARE S5100 [facility] [address] [place] [address] ADULT; ELDER ELDER PER 15 CARE CARE MINUTES DAY CARE S5100 [facility] [address] [place] [address] ADULT; ELDER ELDER PER 15 CARE CARE MINUTES DAY CARE S5100 [facility] [address] [place] [address] ADULT; ELDER ELDER PER 15 CARE CARE MINUTES DAY CARE S5100 [facility] [address] [place] [address] ADULT; ELDER ELDER PER 15 CARE CARE MINUTES DAY CARE S[address] [address] ADULT; ELDER ELDER PER 15 CARE CARE MINUTES DAY CARE S5[address] [address] ADULT; ELDER ELDER PER 15 CARE CARE MINUTES DAY CARE S[address] [address] ADULT; ELDER ELDER PER 15 CARE CARE MINUTES DAY CARE S[address] [address] ADULT; ELDER ELDER PER 15 CARE CARE MINUTES DAY CARE S5100 [address] ADULT; ELDER ELDER PER 15 CARE CARE MINUTES DAY CARE S5100 [facility] [address] ADULT; ELDER ELDER PER 15 CARE CARE MINUTES DAY CARE S5[address] [facility] [address] ADULT; ELDER ELDER PER 15 CARE CARE MINUTES DAY CARE S5100 [facility] [address] [place] [address] ADULT; ELDER ELDER PER 15 CARE CARE MINUTES DAY CARE S5100 [facility] [address] [place] [address] ADULT; ELDER ELDER PER 15 CARE CARE MINUTES DAY CARE S5100 [facility] [address] [place] [address] ADULT; ELDER ELDER PER 15 CARE CARE MINUTES ADLT SZD [id number] [facility] AGENCY UNDWEAR XTRA LG EA INCONTINE T4541 [facility] NCE 8 HOME HOME [facility] DISPOSABL AGENCY AGENCY E UNDPAD LARGE EA DAY CARE S5100 [facility] 8 [facility] ADULT; ELDER ELDER PER 15 CARE CARE MINUTES DAY CARE S5100 [facility] 8 [facility] ADULT; ELDER ELDER PER 15 CARE CARE MINUTES Encounters Encounter Start End Date Code Location Performer Type Date Emergency JORGE Wadegerard (ER) 3 15:31 3 17:43 [facility] 0 0 HOME OUTPATIEN HEALTH T [facility] - 0 0 [facility], 0 0 DIST OTHER HEALTH DEPT DEMOLITION EXPERT HOME [facility], 0 0 DIST OTHER HEALTH DEPT DEMOLITION EXPERT HOME [facility], 0 0 HOME OUTPATIEN HEALTH T AGENCY HOME [facility], 0 0 DIST OTHER HEALTH DEPT DEMOLITION EXPERT OFFICE 73620 TERRY GALARZA 9 9 LEANDRA Hernandez T VISIT PSC 15 MINUTES OFFICE 89830 TERRY MCGREGOR 9 9 LEANDRA PETIT T VISIT 5 PSC MINUTES HOME [facility] HEALTH, 9 9 DIST OTHER HEALTH DEPT DEMOLITION EXPERT HOME [facility], 9 9 HOME OUTPATIEN HEALTH T AGENCY OFFICE 04425 TERRY RUIZ 9 9 LYNNE MUNGUIA T VISIT SERV 15 FOUNDATIO MINUTES HOME [facility], 9 9 DIST OTHER HEALTH DEPT DEMOLITION EXPERT HOME [facility], 9 9 HOME OUTPATIEN HEALTH T [facility] - 9 9 [facility] T [facility] 9 9 DIST OTHER HEALTH DEPT DEMOLITION EXPERT OFFICE 00698 TIM SCHULTE, CONSULTAT 9 9 LYNNE MUNGUIA ION SERV NEW/ESTAB FOUNDATIO PATIENT 60 MIN HOME [facility], 9 9 DIST OTHER HEALTH DEPT DEMOLITION EXPERT OFFICE 23816 Mary HANDY OUTPATIEN 9 9 LEANDRA Messer T VISIT PSC 15 MINUTES OFFICE 62987 Mary HANDY OUTPATIEN 9 9 LEANDRA Messer T VISIT PSC 15 MINUTES HOME [facility], 9 9 DIST OTHER HEALTH DEPT DEMOLITION EXPERT HOME [facility], 9 9 HOME OUTPATIEN HEALTH T [facility] - 9 9 [facility] OUTPATIEN [facility] T HOME [facility], 9 9 DIST OTHER HEALTH DEPT DEMOLITION EXPERT HOME [facility], 9 9 DIST OTHER HEALTH DEPT DEMOLITION EXPERT HOME [facility], 9 9 HOME OUTPATIEN HEALTH T AGENCY OFFICE 67621 TERRY GALARZA 9 9 LEANDRA Hernandez T VISIT PSC 15 MINUTES HOME [facility], 9 9 DIST OTHER HEALTH DEPT DEMOLITION EXPERT OFFICE 76528 TERRY MCGREGOR 9 9 LEANDRA PETIT T VISIT 5 PSC MINUTES OFFICE 92011 TERRY GALARZA 9 9 LEANDRA Hernandez T VISIT PSC 15 MINUTES HOME [facility], 9 9 DIST OTHER HEALTH DEPT DEMOLITION EXPERT HOME [facility], 9 9 HOME OUTPATIEN HEALTH T AGENCY OFFICE 26184 [facility] OUT[facility]IEN 9 9 HEALTH CO HEALTH T VISIT [facility] 15 BANK ACCT MINUTES HOME [facility], 9 9 DIST OTHER HEALTH DEPT DEMOLITION EXPERT HOME [facility], 9 9 DIST OTHER HEALTH DEPT DEMOLITION EXPERT OFFICE 44889 Mary HANDY OUTPATIEN 9 9 LEANDRA Rhodes VISIT PSC 15 MINUTES HOME [facility], 9 9 HOME OUTPATIEN HEALTH T AGENCY HOME [facility], 9 9 DIST OTHER HEALTH DEPT DEMOLITION EXPERT OFFICE 56248 Mary HANDY OUTPATIEN 9 9 LEANDRA Rhodes VISIT 5 PSC MINUTES HOME [facility], 9 9 HOME OUTPATIEN HEALTH T AGENCY HOME [facility], 9 9 DIST OTHER HEALTH DEPT DEMOLITION EXPERT OFFICE 25224 Mary HANDY OUTPATIEN 9 9 LEANDRA Rhodes VISIT 5 PSC MINUTES HOME [facility], 9 9 DIST OTHER HEALTH DEPT DEMOLITION EXPERT HOME [facility], 9 9 HOME OUTPATIEN HEALTH T AGENCY OFFICE 52348 Mary HANDY OUTPATIEN 9 9 LEANDRA Rhodes VISIT 5 PSC MINUTES OFFICE 99884 Mary HANDY OUTPATIEN 9 9 LEANDRA Rhodes VISIT PSC 15 MINUTES HOME [facility], 9 9 DIST OTHER HEALTH DEPT DEMOLITION EXPERT OFFICE 85371 Mary HANDY OUTPATIEN 9 9 LEANDRA Rhodes VISIT 5 PSC MINUTES HOME [facility], 9 9 DIST OTHER HEALTH DEPT DEMOLITION EXPERT HOME [facility], 9 9 HOME OUTPATIEN HEALTH T AGENCY [facility], 8 8 DIST OTHER HEALTH DEPT DEMOLITION EXPERT HOME [facility], 8 8 HOME OUTPATIEN HEALTH T AGENCY [facility], 8 8 DIST OTHER HEALTH DEPT DEMOLITION EXPERT OFFICE 38787 Mary HANDY OUTPATIEN 8 8 LEANDRA Messer T VISIT 5 PSC MINUTES HOME [facility], 8 8 DIST OTHER HEALTH DEPT DEMOLITION EXPERT HOME [facility], 8 8 HOME OUTPATIEN HEALTH T AGENCY [facility], 8 8 DIST OTHER HEALTH DEPT DEMOLITION EXPERT HOME [facility], 8 8 DIST OTHER HEALTH DEPT DEMOLITION EXPERT HOME [facility], 8 8 HOME OUTPATIEN HEALTH T AGENCY OFFICE 55197 Mary HANDY OUTPATIEN 8 8 LEANDRA Messre T VISIT PSC 15 MINUTES EMERGENCY 37604 JEEVAN ORTIZ, 8 8 [facility] DEPARTMEN CORPORATI O T VISIT ON MODERATE SEVERITY EMERGENCY 60066 [facility] 8 8 [facility] DEPARTMEN INC T VISIT HIGH/URGE NT SEVERITY HOSPITAL [facility] - 8 8 [facility]EN [facility] T [facility], 8 8 DIST OTHER HEALTH DEPT DEMOLITION EXPERT OFFICE 21674 Mary HANDY OUTPATIEN 8 8 LEANDRA Messer T VISIT PSC 15 MINUTES HOME [facility], 8 8 DIST OTHER HEALTH DEPT DEMOLITION EXPERT HOME [facility], 8 8 HOME OUTPATIEN HEALTH T AGENCY [facility], 8 8 DIST OTHER HEALTH DEPT DEMOLITION EXPERT [facility], 8 8 HOME OUTPATIEN HEALTH T AGENCY [facility], 8 8 DIST OTHER HEALTH DEPT DEMOLITION EXPERT OFFICE 82055 [facility] OUTPATIEN 8 8 HEALTH CO HEALTH T VISIT [facility] 10 BANK ACCT MINUTES HOME [facility] HEALTH, 8 8 DIST OTHER HEALTH DEPT DEMOLITION EXPERT HOME [facility], 8 8 HOME OUTPATIEN HEALTH T AGENCY OFFICE 24225 [facility] T VISIT [facility] 15 BANK ACCT MINUT[facility] HOME [facility], 8 8 DIST OTHER HEALTH DEPT DEMOLITION EXPERT HOME [facility], 8 8 HOME OUTPATIEN HEALTH T AGENCY HOME [facility], 8 8 DIST OTHER HEALTH DEPT DEMOLITION EXPERT
--- OUTSIDE RECORDS SUMMARY | 2016-12-16 17:31 | External Medical Summary Rpt ---
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 Name Role Phone ALBA STODDARD, Unavailable Unavailable ALBA STODDARD ANTONIO, Unavailable Unavailable [facility] Unavailable Unavailable SERVICE, [facility] Unavailable Unavailable CENTERS, [facility] Unavailable INC, [facility] Unavailable Unavailable CENTER, [facility] Unavailable Unavailable CARE, [facility] Unavailable Unavailable INC, [facility] KIT RICHTER, Unavailable Unavailable KIT RICHTER [facility] Unavailable Unavailable [facility], [facility] Unavailable Unavailable HOLDING, [facility] Skyler Penaloza SUPPLIES, M Regis Penaloza Unavailable Unavailable SUPPLIES YONY BURRIS, Unavailable Unavailable YONY BURRIS STEPHEN A, Unavailable Unavailable ALBA MANLEY MARC D, Unavailable Unavailable FLAKITA LEAL [facility] Unavailable Unavailable ASSOCIATES,[facility], [facility] DAMASO ALMANZAR, Unavailable Unavailable DAMASO ALMANZAR BABATUNDE O, Unavailable Unavailable BARNEY ORTIZ [facility] Unavailable Unavailable [facility], 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 [facility] Unavailable Unavailable AGENCY, [facility] Mary MOBLEY WRIGHT, Unavailable Unavailable Mary C Purpose Continuity of Care Document - 08-20-2007 through 2016 Problems Code Diagnosis DOS Provider Status 27812 DIAB W/O 11-11-2009 Skyler Penaloza MENTION SUPPLIES COMP TYPE II/UNS TYPE UNCNTRL 80973 UNSPECIFIED 11-10-2009 [facility] E 4389 UNSPEC LATE 11-07-2009 [facility] EFF HEALTH CEREBRVASC AGENCY DZ DUE CEREBRVASC DZ 7197 DIFFICULTY 11-07-2009 [facility] IN [facility]ALTH AGENCY 70802 OTHER 11-07-2009 [facility] MALAISE AND HEALTH FATIGUE AGENCY 437 OTHER 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[facility] CEREBROVASC ULAR DISEASE 5950 ACUTE 10-24-2009 [facility] 82281 INCOMPLETE 10-24-2009 [facility] EMPTY[facility] INC 4019 UNSPECIFIED 10-17-2009 [facility] HYPERTENSIO 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 N 496 CHRONIC 10-17-2009 [facility] OBSTRUCTION 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 NEC 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[facility], OSIS OF FLAKITA D NAIL 7295 PAIN IN 10-07-2009 PAWS[facility], SOFT FLAKITA D TISSUES OF LIMB 37570 DIAB W/O 08-02-2009 [facility] COMP TYPE AMERIC II/UNS NOT HOLDING STATED UNCNTRL 74726 OTH FORM 08-02-2009 [facility] EPILEPSY & AMERIC RECUR HOLDING SEIZUR NO INTRACT EPIL 4011 ESSENTIAL 08-02-2009 [facility] HYPERTENSIO AMERIC N, BENIGN HOLDING 4659 ACUTE URIS 08-02-2009 Mary [facility] UNSPECIFIED SITE V5861 LONG-TERM 08-02-2009 Mary MOBLEY (CURRENT) PSC USE OF ANTICOAGULA NTS 5990 URINARY 08-01-2009 [facility] TRACT AMERIC INFECTION HOLDING SITE NOT SPECIFIED 23913 UNSPECIFIED 06-29-2009 [facility]STIP[facility]IO FOUNDATIO N V0481 NEED 06-01-2009 [facility] VACCINATION &INOCULATIO N FLU 2724 OTHER AND 05-26-2009 [facility] UNSPECIFIED [facility] HYPERLIPIDE ROXANNA 58313 BACKGROUND 04-12-2009 ALFIE RICHTER A RETINOPATHY 22447 HYPERTROPHY 03-31-2009 [facility] W/UR OBST & INC OTH LUTS 4329 UNSPECIFIED 03-10-2009 [facility] L HEMORRHAGE 7365 GENU 03-10-2009 [facility]UM [facility] 45963 OTHER 03-10-2009 [facility] DEFORMITY [facility] INC OF ANKLE AND FOOT OTHER 4779 ALLERGIC 01-20-2009 Mary MOBLEY RHINITIS PSC CAUSE UNSPECIFIED 3449 UNSPECIFIED 12-03-2008 [facility] 436 ACUTE BUT 12-03-2008 [facility] CEREBROVASC ULAR DISEASE 60047 OTHER 11-24-2008 Mary MOBLEY CONVULSIONS PSC E9479 UNSPEC 11-24-2008 [facility] RX/MEDICINA AMERIC L SBSTNC [place] [address] MALIG HTN 10-08-2008 [facility] WITHOUT [facility] HEART FAIL 4589 UNSPECIFIED 10-08-2008 [facility] 4660 ACUTE 10-08-2008 [facility] 3320 PARALYSIS 10-01-2008 [facility] 5964 ATONY OF 10-01-2008 [facility]ENC[facility] V5789 OTHER 10-01-2008 [facility] SPECIFIED HEALTH REHABILITAT AGENCY ION PROCEDURE OTHER 20804 UNSPECIFIED 07-13-[address] [facility] 7802 SYNCOPE AND 02-24-2008 Mary MOBLEY [facility] 7804 DIZZINESS 02-23-2008 [facility] GIDDINESS SERVICE V653 DIETARY 01-21-2008 [facility] SURVEILLANC HE[facility] E AND [facility]AL COUNSELING BANK ACCT V7791 SCREENING 11-06-2007 [facility] FOR LIPOID HEALTH DISORDERS CENTRAL BANK ACCT 7806 FEVER & OTH 09-02-2007 [facility] DISTURBANCE S TEMP REG Immunization Name Date Route CVX Reacti Commen Provid Is Given on t er Refuse d IIV3 [place] No VACCIN 2008 [facility] 0.5 ML DOSAGE IM USE IIV3 [place] No VACCIN 2008 [facility] 0.5 ML DOSAGE IM USE IIV3 [place] No VACCIN 2007 [facility] 0.5 ML DOSAGE IM USE Procedures Procedure DOS Code Location Performer Comment DAY CARE S5100 [facility] 0 [facility] ADULT; ELDER ELDER PER 15 CARE CARE MINUTES DAY CARE S5100 [facility] 0 [facility] ADULT; ELDER ELDER PER 15 CARE CARE MINUTES DAY CARE S5100 [facility] 0 [facility] ADULT; ELDER ELDER PER 15 CARE CARE MINUTES BLD GLU A4253 M E D M E D TEST/REAG 0 SUPPLIES SUPPLIES T STRIPS HOME BLD GLU MON-50 LANCETS A4259 M E D M E D PER BOX 0 SUPPLIES SUPPLIES OF 100 INTERMIT A4351 [facility] URIN 0 [employer] [facility] CATH; E CENTERS E CENTERS STRAIGHT TIP W/WO COAT EA DAY CARE S5100 [facility] 0 [facility] ADULT; ELDER ELDER PER 15 CARE CARE MINUTES DAY CARE S5100 [facility] 0 [facility] ADULT; ELDER ELDER PER 15 CARE CARE MINUTES DAY CARE S5100 [facility] 0 [facility] ADULT; ELDER ELDER PER 15 CARE CARE MINUTES ADLT SZD T4528 [facility] INCONT HEALTH HEALTH PROD AGENCY AGENCY UNDWEAR XTRA LG EA INCONTINE T4541 [facility] NCE 0 HOME HOME PRODUCT HEALTH HEALTH DISPOSABL AGENCY AGENCY E UNDPAD LARGE EA DAY CARE S5100 [facility] 0 [facility] ADULT; ELDER ELDER PER 15 CARE CARE MINUTES DAY CARE S5100 [facility] 0 [facility] ADULT; ELDER ELDER PER 15 CARE CARE MINUTES DAY CARE S5100 [facility] 0 [facility] ADULT; ELDER ELDER PER 15 CARE CARE MINUTES DAY CARE S5100 [facility] 0 [facility] ADULT; ELDER ELDER PER 15 CARE CARE MINUTES DAY CARE S5100 [facility] 0 [facility] ADULT; ELDER ELDER PER 15 CARE CARE MINUTES CULTURE 05586 [facility] BACTERIAL 0 [facility] INC QUANTTATI VE COLONY COUNT URINE CULTURE 72647 [facility] [place] BCT 0 [facility] ISOL&PRSM INC INC PTV ID ISOLATE EA URINE SUSCEPTIB 48399 [facility] LTY STDY 0 [facility] ANTIMICRB INC INC IAL MICRO/AGA R DILUTJ DAY CARE S5100 [facility] 0 [facility] ADULT; ELDER ELDER PER 15 CARE CARE MINUTES DAY CARE S5100 [facility] 0 [facility] ADULT; ELDER ELDER PER 15 CARE CARE MINUTES DAY CARE S5100 [facility] 0 [facility] ADULT; ELDER ELDER PER 15 CARE CARE MINUTES DAY CARE S5100 [facility] 0 [facility] ADULT; ELDER ELDER PER 15 CARE CARE MINUTES DAY CARE S5100 [facility] 0 [facility] ADULT; ELDER ELDER PER 15 CARE CARE MINUTES DAY CARE S5100 [facility] 0 [facility] ADULT; ELDER ELDER PER 15 CARE CARE MINUTES DAY CARE S5100 [facility]MA[facility] SERVICES 0 [facility] ADULT; ELDER ELDER PER 15 CARE CARE MINUTES DAY CARE S5100 [facility] 0 [facility] ADULT; ELDER ELDER PER 15 CARE CARE MINUTES INTERMIT A4351 [facility] URIN 0 [facility] CATH; E CENTERS E CENTERS STRAIGHT TIP W/WO COAT EA DAY CARE S5100 [facility] 0 [facility] ADULT; ELDER ELDER PER 15 CARE CARE MINUTES DAY CARE S5100 [facility] 0 [facility] ADULT; ELDER ELDER PER 15 CARE CARE MINUTES DAY CARE S5100 [facility] 0 [facility] ADULT; ELDER ELDER PER 15 CARE CARE MINUTES DAY CARE S5100 [facility] 0 [facility] ADULT; ELDER ELDER PER 15 CARE CARE MINUTES DAY CARE S5100 [facility] 0 [facility] ADULT; ELDER ELDER PER 15 CARE CARE MINUTES DAY CARE S5100 [facility] 0 [facility] ADULT; ELDER ELDER PER 15 CARE CARE MINUTES ADLT SZD T4528 [facility] PR[facility] AGENCY UNDWEAR XTRA LG EA DAY CARE S5100 [facility] 9 [facility] ADULT; ELDER ELDER PER 15 CARE CARE MINUTES DAY CARE S5100 [facility] 9 [facility] ADULT; ELDER ELDER PER 15 CARE CARE MINUTES DAY CARE S5100 [facility] 9 [facility] ADULT; ELDER ELDER PER 15 CARE CARE MINUTES DAY CARE S5100 [facility] 9 [facility] ADULT; ELDER ELDER PER 15 CARE CARE MINUTES DAY CARE S5100 [facility] 9 [facility] ADULT; ELDER ELDER PER 15 CARE CARE MINUTES DAY CARE S5100 [facility] 9 [facility] ADULT; ELDER ELDER PER 15 CARE CARE MINUTES COLLECTIO 14824 Mary MANLEY, N VENOUS 9 LEANDRA Hernandez BLOOD PSC VENIPUNCT URE IM ADM 01275 Mary MANLEY, PRQ ID 9 LEANDRA Hernandez SUBQ/IM PSC NJXS 1 VACCINE INJ J0702 Mary MANLEY BETAMETHA 9 LEANDRA Hernandez SONE PSC ACETATE & PHOSPHATE 3 MG PROTHROMB 47786 Mary MANLEY, IN TIME 9 LEANDRA Hernandez PSC DRUG 09523 [facility] ASSAY 9 AMERIC AMERIC VALPROIC HOLDING HOLDING DIPROPYLA CETIC ACID TOTAL BASIC 28731 [facility] METABOLIC 9 AMERIC AMERIC PANEL HOLDING HOLDING CALCIUM TOTAL GLUCOSE 51301 Mary MANLEY QUANTITAT 9 LEANDRA Hernandez TAYLER BLOOD PSC XCPT REAGENT STRIP HEMOGLOBI 95832 Mary MANLEY, N 9 LEANDRA Hernandez GLYCOSYLA PSC SUSAN A1C URINLS 51811 Mary ALMANZAR, DIP 9 LEANDRA WHITESIDE DAMASO STICK/TAB PSC LET REAGNT NON-AUTO MICRSCPY SUSCEPTIB 39343 [facility] LTY STDY 9 AMERIC AMERIC ANTIMICRB HOLDING HOLDING IAL MICRO/AGA R DILUTJ CUL BACT 25473 [facility] AEROBIC 9 AMERIC AMERIC ADDL HOLDING HOLDING METHS DEFINITIV E EA ISOL CULTURE 43666 [facility] BACTERIAL 9 AMERIC AMERIC HOLDING HOLDING QUANTTATI VE COLONY COUNT URINE CULTURE 11662 [facility] BCT 9 AMERIC AMERIC ISOL&PRSM HOLDING HOLDING PTV ID ISOLATE EA URINE DAY CARE S[address] ADULT; ELDER ELDER PER 15 CARE CARE MINUTES DAY CARE S[address] ADULT; ELDER ELDER PER 15 CARE CARE MINUTES DAY CARE S[address] ADULT; ELDER ELDER PER 15 CARE CARE MINUTES DAY CARE S[address] ADULT; ELDER ELDER PER 15 CARE CARE MINUTES DAY CARE S[address] ADULT; ELDER ELDER PER 15 CARE CARE MINUTES ADLT SZD T4528 [facility] HOME HOME INCONT HEALTH HEALTH PROD AGENCY AGENCY UNDWEAR XTRA LG EA DEBRIDEME 81097 PAWT, MEL, SHIKHA NAIL 9 FLAKITA Penaloza ANY METHOD 6/> DAY CARE S5100 [facility] [address] [place] [address] ADULT; ELDER ELDER PER 15 CARE CARE MINUTES DAY CARE S5100 [facility] [address] [place] [address] ADULT; ELDER ELDER PER 15 CARE CARE MINUTES INTERMIT A4351 [facility] SENA 9 [facility] CATH; E CENTERS E CENTERS STRAIGHT TIP W/WO COAT EA DAY CARE S5100 [facility] [address] [place] [address] ADULT; ELDER ELDER PER 15 CARE CARE MINUTES DAY CARE S5100 [facility] [address] [place] [address] ADULT; ELDER ELDER PER 15 CARE CARE MINUTES DAY CARE S5100 [facility] [address] [place] [address] ADULT; ELDER ELDER PER 15 CARE CARE MINUTES DAY CARE S5100 [facility] [address] [place] [address] ADULT; ELDER ELDER PER 15 CARE CARE MINUTES DAY CARE S5100 [facility] [address] [place] [address] ADULT; ELDER ELDER PER 15 CARE CARE MINUTES DAY CARE S5100 [facility] [address] [place] [address] ADULT; ELDER ELDER PER 15 CARE CARE MINUTES DAY CARE S5100 [facility] [address] [place] [address] ADULT; ELDER ELDER PER 15 CARE CARE MINUTES DAY CARE S5100 [facility] [address] [place] [address] ADULT; ELDER ELDER PER 15 CARE CARE MINUTES DAY CARE S5100 [facility] [address] [place] [address] ADULT; ELDER ELDER PER 15 CARE CARE MINUTES DAY CARE S5100 [facility] [address] [place] [address] ADULT; ELDER ELDER PER 15 CARE CARE MINUTES DAY CARE S5100 [employer] SERVICES [address] [place] [address] ADULT; ELDER ELDER PER 15 CARE CARE MINUTES DAY CARE S5100 [facility] [address] [place] [address] ADULT; ELDER ELDER PER 15 CARE CARE MINUTES DAY CARE S5100 [employer] SERVICES [address] [place] [address] ADULT; ELDER ELDER PER 15 CARE CARE MINUTES DAY CARE S5100 [facility] [address] [place] [address] ADULT; ELDER ELDER PER 15 CARE CARE MINUTES INCONTINE T4541 [facility] 9 HOME HOME PRODUCT HEALTH HEALTH DISPOSABL AGENCY AGENCY E UNDPAD LARGE EA DAY CARE S5100 [facility] [address] [place] [address] ADULT; ELDER ELDER PER 15 CARE CARE MINUTES DAY CARE S5100 [facility] SERVICES [address] [place] [address] ADULT; ELDER ELDER PER 15 CARE CARE MINUTES ADMINISTR G0008 [facility] ATION OF 9 [facility] INFLUENZA CENTER CENTER VIRUS VACCINE IIV3 02604 [facility] VACCINE 9 [facility] [employer] [facility] SPLIT CENTER CENTER VIRUS 0.5 ML DOSAGE IM USE ADLT SZD T4528 [facility] 9 HOME HOME INCONT HEALTH HEALTH PROD AGENCY AGENCY UNDWEAR XTRA LG EA DAY CARE S5100 [facility] SERVICES [address] [place] [address] ADULT; ELDER ELDER PER 15 CARE CARE MINUTES DAY CARE S5100 [facility] [address] ADULT; ELDER ELDER PER 15 CARE CARE MINUTES COLLECTIO 77611 [facility] N VENOUS 9 [facility] [place] [address] [facility] THYROID 9 [facility] STIMULATI INC INC NG HORMONE TSH INTERMIT A4351 [facility] SENA 9 [facility] CATH; E CENTERS E CENTERS STRAIGHT TIP W/WO COAT EA BASIC 96773 [facility] METABOLIC 9 [facility] PANEL INC INC CALCIUM TOTAL DAY CARE S5100 [facility] SERVICES [address] [place] [address] ADULT; ELDER ELDER PER 15 CARE CARE MINUTES DAY CARE S5100 [facility] [address] [place] [address] ADULT; ELDER ELDER PER 15 CARE CARE MINUTES DAY CARE S5100 [facility] [address] [place] [address] ADULT; ELDER ELDER PER 15 CARE CARE MINUTES DAY CARE S5100 [facility] [address] ADULT; ELDER ELDER PER 15 CARE CARE MINUTES DAY CARE S5100 [facility] SERVICES [address] [place] [address] ADULT; ELDER ELDER PER 15 CARE CARE MINUTES DAY CARE S5100 [facility] SERVICES [address] [place] [address] ADULT; ELDER ELDER PER 15 CARE CARE MINUTES DAY CARE S[address] ADULT; ELDER ELDER PER 15 CARE CARE MINUTES DAY CARE S[address] ADULT; ELDER ELDER PER 15 CARE CARE MINUTES REPL CRUZ A4235 M E D M E D LITHIUM 9 SUPPLIES SUPPLIES MED NECES SHERYL BG MON OWN PT EA SPRING-PO A4258 M E D M E D WERED 9 SUPPLIES SUPPLIES DEVICE FOR LANCET EACH LANCETS A4259 M E D M E D PER BOX 9 SUPPLIES SUPPLIES OF 100 NORMAL A4256 M E D M E D LOW AND 9 SUPPLIES SUPPLIES HIGH CALIBRATO R SOLUTION/ CHIPS IIV3 19173 [facility] VACCINE 9 [facility] SPLIT CENTER CENTER VIRUS 0.5 ML DOSAGE IM USE ADMINISTR G0008 [facility] ATION OF 9 [facility] INFLUENZA CENTER CENTER VIRUS VACCINE BLD GLU A4253 M E D M E D TEST/REAG 9 SUPPLIES SUPPLIES T STRIPS HOME BLD GLU SAT-50 DAY CARE S[address] ADULT; ELDER ELDER PER 15 CARE CARE MINUTES DAY CARE S[address] ADULT; ELDER ELDER PER 15 CARE CARE MINUTES DAY CARE S[address] ADULT; ELDER ELDER PER 15 CARE CARE MINUTES DAY CARE S[address] ADULT; ELDER ELDER PER 15 CARE CARE MINUTES DAY CARE S[address] ADULT; ELDER ELDER PER 15 CARE CARE MINUTES DAY CARE S[address] ADULT; ELDER ELDER PER 15 CARE CARE MINUTES DAY CARE S[address] ADULT; ELDER ELDER PER 15 CARE CARE MINUTES DAY CARE S[address] ADULT; ELDER ELDER PER 15 CARE CARE MINUTES DAY CARE S[address] ADULT; ELDER ELDER PER 15 CARE CARE MINUTES DAY CARE S[address] ADULT; ELDER ELDER PER 15 CARE CARE MINUTES INTERMIT A4351 [facility] SENA 9 [facility] CATH; E CENTERS E CENTERS STRAIGHT TIP W/WO COAT EA DAY CARE S5100 [facility] [address] ADULT; ELDER ELDER PER 15 CARE CARE MINUTES DAY CARE S5100 [facility] S[facility] [address] ADULT; ELDER ELDER PER 15 CARE CARE MINUTES DAY CARE S5100 [facility] [address] ADULT; ELDER ELDER PER 15 CARE CARE MINUTES DAY CARE S5100 [facility]HRE[facility] SAB[facility] [address] ADULT; ELDER ELDER PER 15 CARE CARE MINUTES DAY CARE S5100 [facility] S[facility] [address] ADULT; ELDER ELDER PER 15 CARE CARE MINUTES ADLT SZD T4528 [facility] PR[facility] AGENCY AGENCY UNDWEAR XTRA LG EA DAY CARE S5100 [facility] S[facility] [address] ADULT; ELDER ELDER PER 15 CARE CARE MINUTES DAY CARE S5100 [facility] [address] ADULT; ELDER ELDER PER 15 CARE CARE MINUTES DAY CARE S[address] ADULT; ELDER ELDER PER 15 CARE CARE MINUTES [facility] 47[address] ROBER, ROBER, MEDICAL 9 KIT A KIT A XM&JOELLE COMPRHNSV ESTAB PT 1/> DAY CARE S5100 [facility] SAB[facility] [address] ADULT; ELDER ELDER PER 15 CARE CARE MINUTES DAY CARE S5100 [facility] [address] ADULT; ELDER ELDER PER 15 CARE CARE MINUTES DAY CARE S[address] ADULT; ELDER ELDER PER 15 CARE CARE MINUTES DAY CARE S[address] ADULT; ELDER ELDER PER 15 CARE CARE MINUTES DAY CARE S[address] ADULT; ELDER ELDER PER 15 CARE CARE MINUTES COLLECTIO 92357 [facility] N VENOUS 9 [facility] [place] [address] [facility] RETROPERI 9 [facility] TONEAL INC INC REAL TIME W/IMAGE COMPLETE BASIC 57161 [facility] METABOLIC 9 [facility] PANEL INC INC CALCIUM TOTAL DAY CARE S[address] ADULT; ELDER ELDER PER 15 CARE CARE MINUTES DAY CARE S[address] ADULT; ELDER ELDER PER 15 CARE CARE MINUTES DAY CARE S[address] ADULT; ELDER ELDER PER 15 CARE CARE MINUTES DAY CARE S[address] ADULT; ELDER ELDER PER 15 CARE CARE MINUTES DAY CARE S[address] ADULT; ELDER ELDER PER 15 CARE CARE MINUTES DAY CARE S[address] ADULT; ELDER ELDER PER 15 CARE CARE MINUTES DAY CARE S[address] ADULT; ELDER ELDER PER 15 CARE CARE MINUTES DAY CARE S[address] ADULT; ELDER ELDER PER 15 CARE CARE MINUTES DAY CARE S[address] ADULT; ELDER ELDER PER 15 CARE CARE MINUTES DAY CARE S[address] ADULT; ELDER ELDER PER 15 CARE CARE MINUTES DAY CARE S[address] ADULT; ELDER ELDER PER 15 CARE CARE MINUTES ADD LW [id number] [place] [facility] EXT 9 BRACE BRACE VARUS/TARI PROSTH PROSTH ROBERTA WILMER INC INC STRAP PAD/LINE PAD TRANS L3620 [facility] ORTHOS 1 9 BRACE BRACE SHOE-ANOT PROSTH PROSTH HER SLD INC INC STIRRUP EXISTING REPAIR L4205 [facility] ORTHOTIC 9 BRACE BRACE DEVC PROSTH PROSTH LABOR INC INC COMPONENT PER 15 MIN DIAB ONLY A5500 [facility] FIT CSTM 9 BRACE BRACE PREP&SPL PROSTH PROSTH SHOE MX INC INC DNSITY INSRT DAY CARE [id number] ADULT; ELDER ELDER PER 15 CARE CARE MINUTES DAY CARE S[address] ADULT; ELDER ELDER PER 15 CARE CARE MINUTES DAY CARE S[address] ADULT; ELDER ELDER PER 15 CARE CARE MINUTES DAY CARE S5[address] ADULT; ELDER ELDER PER 15 CARE CARE MINUTES DAY CARE S5[address] ADULT; ELDER ELDER PER 15 CARE CARE MINUTES ADLT SZD [id number] [facility] HOME HOME INCONT HEALTH HEALTH PROD AGENCY AGENCY UNDWEAR XTRA LG EA DAY CARE S[address] ADULT; ELDER ELDER PER 15 CARE CARE MINUTES INTERMIT [id number] O[facility] OUMAR URIN 9 HEALTHCAR HEALTHCAR CATH; E CENTERS E CENTERS STRAIGHT TIP W/WO COAT EA URINLS 50057 A PHYLICIA TAVAREZ 9 LEANDRA Hernandez STICK/TAB PSC LET REAGNT NON-AUTO MICRSCPY CULTURE 05592 [facility] BACTERIAL 9 [employer] QUANTTATI VE COLONY COUNT URINE DAY CARE S[address] ADULT; ELDER ELDER PER 15 CARE CARE MINUTES DAY CARE S[address] ADULT; ELDER ELDER PER 15 CARE CARE MINUTES DAY CARE S[address] ADULT; ELDER ELDER PER 15 CARE CARE MINUTES DAY CARE S[address] ADULT; ELDER ELDER PER 15 CARE CARE MINUTES CULTURE [id number] [facility] BACTERIAL 9 [employer] QUANTTATI VE COLONY COUNT URINE CULTURE 77763 [facility] BCT 9 [employer] ISOL&[employer]SM [employer] HOLDING PTV ID ISOLATE EA URINE CUL BACT 39089 [facility] AEROBIC 9 [employer] ADDL [employer] HOLDING METHS DEFINITIV E EA ISOL SUSCEPTIB 97760 [facility] LTY STDY 9 [employer] ANTIMICRB HOLDING HOLDING IAL MICRO/AGA R DILUTJ URINLS 59807 A PHYLICIA DANIELS 9 LEANDRA PETIT STICK/TAB PSC LET REAGNT NON-AUTO MICRSCPY DAY CARE S[address] ADULT; ELDER ELDER PER 15 CARE CARE MINUTES DAY CARE S5[address] ADULT; ELDER ELDER PER 15 CARE CARE MINUTES DAY CARE S5100 [address] ADULT; ELDER ELDER PER 15 CARE CARE MINUTES DAY CARE S[address] ADULT; ELDER ELDER PER 15 CARE CARE MINUTES DAY CARE S5100 [address] ADULT; ELDER ELDER PER 15 CARE CARE MINUTES DAY CARE S5100 [address] ADULT; ELDER ELDER PER 15 CARE CARE MINUTES DAY CARE S5100 [address] ADULT; ELDER ELDER PER 15 CARE CARE MINUTES DAY CARE S5100 63 [address] ADULT; ELDER ELDER PER 15 CARE CARE MINUTES DAY CARE S5100 [address] ADULT; ELDER ELDER PER 15 CARE CARE MINUTES INTERMIT A4351 OUMAR SENA 9 [facility] CATH; E CENTERS E CENTERS STRAIGHT TIP W/WO COAT EA DAY CARE S5100 RAMANDEEP [address]DEEP[address] ADULT; ELDER ELDER PER 15 CARE CARE MINUTES DAY CARE S5100 RAM[address]EP [address]EP[address] ADULT; ELDER ELDER PER 15 CARE CARE MINUTES DAY CARE S5[address] ADULT; ELDER ELDER PER 15 CARE CARE MINUTES DAY CARE S5[address] ADULT; ELDER ELDER PER 15 CARE CARE MINUTES DAY CARE S5100 [address]EP [address]DEEP[address] ADULT; ELDER ELDER PER 15 CARE CARE MINUTES DAY CARE S5100 [address] ADULT; ELDER ELDER PER 15 CARE CARE MINUTES ADLT SZD T4528 [facility] PR[facility] AGENCY AGENCY UNDWEAR XTRA LG EA DAY CARE S5[address] ADULT; ELDER ELDER PER 15 CARE CARE MINUTES DAY CARE S5100 RAM[address]DEEP RAMANDEEP[address] ADULT; ELDER ELDER PER 15 CARE CARE MINUTES DAY CARE S5[address] ADULT; ELDER ELDER PER 15 CARE CARE MINUTES DAY CARE S5100 [facility] [address] [place] [address] ADULT; ELDER ELDER PER 15 CARE CARE MINUTES DAY CARE S5100 [facility] [address] [place] [address] ADULT; ELDER ELDER PER 15 CARE CARE MINUTES DAY CARE S5100 [facility] [address] [place] [address] ADULT; ELDER ELDER PER 15 CARE CARE MINUTES DAY CARE S5100 [facility] [address] [place] [address] ADULT; ELDER ELDER PER 15 CARE CARE MINUTES DAY CARE S5100 [facility] [address] [place] [address] ADULT; ELDER ELDER PER 15 CARE CARE MINUTES DAY CARE S5100 [facility] [address] [place] [address] ADULT; ELDER ELDER PER 15 CARE CARE MINUTES DAY CARE S5100 [facility] [address] [place] [address] ADULT; ELDER ELDER PER 15 CARE CARE MINUTES DAY CARE S5100 RAMANDEEP RAMANDEEP [address] ADULT; ELDER ELDER PER 15 CARE CARE MINUTES DAY CARE S5100 [address]EP[address] ADULT; ELDER ELDER PER 15 CARE CARE MINUTES DAY CARE S5100 [facility] [address] [place] [address] ADULT; ELDER ELDER PER 15 CARE CARE MINUTES DAY CARE S5100 [address]DEEP[address] ADULT; ELDER ELDER PER 15 CARE CARE MINUTES DAY CARE S[address] ADULT; ELDER ELDER PER 15 CARE CARE MINUTES DAY CARE S5100 RAMANDEEP RAMANDEEP [address] ADULT; ELDER ELDER PER 15 CARE CARE MINUTES DAY CARE S5100 [facility] [address] [place] [address] ADULT; ELDER ELDER PER 15 CARE CARE MINUTES DAY CARE S5100 [facility] [address] [place] [address] ADULT; ELDER ELDER PER 15 CARE CARE MINUTES DAY CARE S5100 [facility] [address] [place] [address] ADULT; ELDER ELDER PER 15 CARE CARE MINUTES TRAPEZE E0940 YOSELYN SCHROEDER 9 HOME MED HOME MED FREESTAND EQUIP. EQUIP. ING [facility] COMPLETE WITH ART SCHROEDER HOS BED E0260 YOSELYN TOPETE SEMI-ELEC 9 HOME MED HOME MED W/ANY EQUIP. EQUIP. TYPE SIDE [facility] RAIL W/MATTRSS DAY CARE S[address] ADULT; ELDER ELDER PER 15 CARE CARE MINUTES DAY CARE S5[address] ADULT; ELDER ELDER PER 15 CARE CARE MINUTES DAY CARE S5[address] ADULT; ELDER ELDER PER 15 CARE CARE MINUTES DAY CARE S5[address] ADULT; ELDER ELDER PER 15 CARE CARE MINUTES DAY CARE S5[address] ADULT; ELDER ELDER PER 15 CARE CARE MINUTES DAY CARE S5[address] ADULT; ELDER ELDER PER 15 CARE CARE MINUTES COLLECTIO 32742 Mary HANDY VENOUS 9 LEANDRA Messer BLOOD PSC VENIPUNCT URE PROTHROMB 51330 Mary HANDY IN TIME 9 LEANDRA Messer PSC DRUG 10224 LAB ANIKA LAB ANIKA ASSAY 9 [employer] VAL[employer]IC [employer] HOLDING DIPROPYLA CETIC ACID TOTAL BASIC 42313 LAB ANIKA LAB ANIK[facility] METABOLIC 9 [employer] PANEL HOLDING HOLDING CALCIUM TOTAL ADLT SZD T4528 [facility] HOME [facility] HEALTH PROD AGENCY AGENCY UNDWEAR XTRA LG EA DAY CARE S[address] ADULT; ELDER ELDER PER 15 CARE CARE MINUTES DAY CARE S5[address] ADULT; ELDER ELDER PER 15 CARE CARE MINUTES DAY CARE S5[address] ADULT; ELDER ELDER PER 15 CARE CARE MINUTES DAY CARE S5[address] ADULT; ELDER ELDER PER 15 CARE CARE MINUTES URINLS 94604 Mary HANDY DIP 9 LEANDRA Messer STICK/TAB PSC LET REAGNT NON-AUTO MICRSCPY INCONTINE T4541 [facility] 9 HOME HOME [facility] DISPOSABL AGENCY AGENCY E UNDPAD LARGE EA DAY CARE S[address] ADULT; ELDER ELDER PER 15 CARE CARE MINUTES DAY CARE S5[address] ADULT; ELDER ELDER PER 15 CARE CARE MINUTES DAY CARE S5100 [facility] [address] [place] [address] ADULT; ELDER ELDER PER 15 CARE CARE MINUTES DAY CARE S5100 [facility] [address] [place] [address] ADULT; ELDER ELDER PER 15 CARE CARE MINUTES TRAPEZE E0940 YOSELYN YOSELYN BAR 9 HOME MED HOME MED FREESTAND EQUIP. EQUIP. ING [facility] COMPLETE WITH GRAB [facility] HOS BED E0260 YOSELYN YOSELYN SEMI-ELEC 9 HOME MED HOME MED W/ANY EQUIP. EQUIP. TYPE SIDE [facility] RAIL W/MATTRSS DAY CARE S5100 [facility] [address] [place] [address] ADULT; ELDER ELDER PER 15 CARE CARE MINUTES DAY CARE S5100 [facility] [address] [place] [address] ADULT; ELDER ELDER PER 15 CARE CARE MINUTES DAY CARE S5100 [address] ADULT; ELDER ELDER PER 15 CARE CARE MINUTES DAY CARE S5[address] ADULT; ELDER ELDER PER 15 CARE CARE MINUTES DAY CARE S5100 [address]DEEP[address] ADULT; ELDER ELDER PER 15 CARE CARE MINUTES DAY CARE S5100 [facility] [address] [place] [address] ADULT; ELDER ELDER PER 15 CARE CARE MINUTES DAY CARE S[address] ADULT; ELDER ELDER PER 15 CARE CARE MINUTES DAY CARE S5100 [address]EP [address]DEEP[address] ADULT; ELDER ELDER PER 15 CARE CARE MINUTES DAY CARE S5100 [address]EP[address] ADULT; ELDER ELDER PER 15 CARE CARE MINUTES DAY CARE S5100 [facility] [address] [place] [address] ADULT; ELDER ELDER PER 15 CARE CARE MINUTES DAY CARE S5100 [facility] [address] [place] [address] ADULT; ELDER ELDER PER 15 CARE CARE MINUTES CULTURE 69750 LAB ANIKA LAB ANIKA BCT 9 [employer] HOLDING PTV ID ISOLATE EA URINE CUL BACT 68119 LAB ANIK[facility] LAB ANIKA AEROBIC 9 [employer] ADDL [employer]ING HOLDING METHS DEFINITIV E EA ISOL CULTURE 77039 LAB ANIKA LAB ANIKA BACTERIAL 9 [employer] QUANTTATI VE COLONY COUNT URINE SUSCEPTIB 48691 LAB ANIKA LAB ANIKA LTY STDY 9 [employer]IC [employer] ANTIMICRB HOLDING HOLDING IAL MICRO/AGA R DILUTJ DAY CARE S[address] ADULT; ELDER ELDER PER 15 CARE CARE MINUTES URINLS 98335 Mary HANDY DIP 9 LEANDRA Messer STICK/TAB PSC LET REAGNT NON-AUTO MICRSCPY DAY CARE S[address] ADULT; ELDER ELDER PER 15 CARE CARE MINUTES DAY CARE S[address] ADULT; ELDER ELDER PER 15 CARE CARE MINUTES DAY CARE S[address] ADULT; ELDER ELDER PER 15 CARE CARE MINUTES CERVICAL L0172 PROSTHETI PROSTHETI COLLAR 9 C&ORTHOTI C&ORTHOTI SEMI-RIGI C C D FOAM ASSOCIATE ASSOCIATE TWO [employer] S,LLC PREFAB DAY CARE S[address] ADULT; ELDER ELDER PER 15 CARE CARE MINUTES DAY CARE S[address] ADULT; ELDER ELDER PER 15 CARE CARE MINUTES TRAPEZE E0940 YOSELYN TOPETE BAR 9 HOME MED HOME MED FREESTAND EQUIP. EQUIP. [facility] COMPLETE WITH [facility]ED E0260 YSOELYN TOPETE SEMI-ELEC 9 HOME MED HOME MED W/ANY EQUIP. EQUIP. TYPE SIDE [facility] RAIL W/MATTRSS DAY CARE S[address] ADULT; ELDER ELDER PER 15 CARE CARE MINUTES ADLT SZD T4528 [facility] HOME HOME INCONT HEALTH HEALTH PROD AGENCY AGENCY UNDWEAR XTRA LG EA DAY CARE S[address] ADULT; ELDER ELDER PER 15 CARE CARE MINUTES DAY CARE S5[address] ADULT; ELDER ELDER PER 15 CARE CARE MINUTES DAY CARE S5[address] ADULT; ELDER ELDER PER 15 CARE CARE MINUTES DAY CARE S5[address] ADULT; ELDER ELDER PER 15 CARE CARE MINUTES INTERMIT A4351 OUMARWILLY OSEGUERA URIN 9 [facility] CATH; E CENTERS E CENTERS STRAIGHT TIP W/WO COAT EA URINLS 27752 Mary HANDY 9 LEANDRA Messer STICK/TAB PSC LET REAGNT NON-AUTO MICRSCPY DAY CARE S[address] ADULT; ELDER ELDER PER 15 CARE CARE MINUTES DAY CARE S5[address] ADULT; ELDER ELDER PER 15 CARE CARE MINUTES DAY CARE S5[address] ADULT; ELDER ELDER PER 15 CARE CARE MINUTES DAY CARE S5[address] ADULT; ELDER ELDER PER 15 CARE CARE MINUTES DAY CARE S[address] ADULT; ELDER ELDER PER 15 CARE CARE MINUTES DAY CARE S5[address] ADULT; ELDER ELDER PER 15 CARE CARE MINUTES CULTURE 37193 LAB ANIKA LAB ANIKA BCT 9 [employer] PTV ID ISOLATE EA URINE DAY CARE S[address] ADULT; ELDER ELDER PER 15 CARE CARE MINUTES CULTURE 79702 LAB ANIKA LAB ANIKA BACTERIAL 9 [employer] QUANTTATI VE COLONY COUNT URINE CUL BACT 89430 LAB ANIKA LAB ANIKA AEROBIC 9 [employer] ADDL [employer] HOLDING METHS DEFINITIV E EA ISOL SUSCEPTIB 47740 LAB ANIKA LAB ANIKA LTY STDY 9 AMERIC [employer] ANTIMICRB HOLDING HOLDING IAL MICRO/AGA R DILUTJ URINLS 66497 Mary HANDY 9 LEANDRA Messer STICK/TAB PSC LET REAGNT NON-AUTO MICRSCPY TRAPEZE E0940 YOSELYN SCHROEDER 9 HOME MED HOME MED FREESTAND EQUIP. EQUIP. [facility] COMPLETE WITH GRAMarie [facility] HOS [facility]ED E0260 YOSELYN TOPETE SEMI-ELEC 9 HOME MED HOME MED W/ANY EQUIP. EQUIP. TYPE SIDE [facility] RAIL W/MATTRSS DAY CARE S[address] ADULT; ELDER ELDER PER 15 CARE CARE MINUTES DAY CARE S[address] ADULT; ELDER ELDER PER 15 CARE CARE MINUTES DAY CARE S[address] ADULT; ELDER ELDER PER 15 CARE CARE MINUTES DAY CARE S[address] ADULT; ELDER ELDER PER 15 CARE CARE MINUTES DAY CARE S[address] ADULT; ELDER ELDER PER 15 CARE CARE MINUTES DAY CARE S[address] ADULT; ELDER ELDER PER 15 CARE CARE MINUTES DAY CARE S[address] ADULT; ELDER ELDER PER 15 CARE CARE MINUTES INTERMIT A4351 OUMAR SENA 9 [facility] C[facility]; E CENTERS E CENTERS STRAIGHT TIP W/WO COAT EA DAY CARE S[address] ADULT; ELDER ELDER PER 15 CARE CARE MINUTES DAY CARE S[address] ADULT; ELDER ELDER PER 15 CARE CARE MINUTES ADLT SZD T4528 [facility] 9 HOME HOME [facility] HEALTH HEALTH PROD AGENCY AGENCY UNDWEAR XTRA LG EA DAY CARE S[address] ADULT; ELDER ELDER PER 15 CARE CARE MINUTES BLD GLU A4253 M E D M E D TEST/REAG 8 SUPPLIES SUPPLIES T STRIPS HOME BLD GLU MON-50 NORMAL A4256 M E D M E D LOW AND 8 SUPPLIES SUPPLIES HIGH CALIBRATO R SOLUTION/ CHIPS LANCETS A4259 M E D M E D PER BOX 8 SUPPLIES SUPPLIES OF 100 DAY CARE S5[address] ADULT; ELDER ELDER PER 15 CARE CARE MINUTES DAY CARE S5[address] ADULT; ELDER ELDER PER 15 CARE CARE MINUTES DAY CARE S5[address] ADULT; ELDER ELDER PER 15 CARE CARE MINUTES DAY CARE S5[address] ADULT; ELDER ELDER PER 15 CARE CARE MINUTES SUSCEPTIB 06797 LAB ANIKA LAB ANIKA LTY STDY 8 [employer]IC [employer] ANTIMICRB HOLDING HOLDING IAL MICRO/AGA R DILUTJ CUL BACT 01861 LAB ANIKA LAB ANIKA AEROBIC 8 [employer] ADDL [employer]ING HOLDING METHS DEFINITIV E EA ISOL CULTURE 89934 LAB ANIKA LAB ANIKA BCT 8 [employer]OL[employer] HOLDING PTV ID ISOLATE EA URINE CULTURE 21472 LAB ANIKA LAB ANIKA BACTERIAL 8 [employer]ING QUANTTATI VE COLONY COUNT URINE DAY CARE S[address] ADULT; ELDER ELDER PER 15 CARE CARE MINUTES TRAPEZE E0940 YOSELYN YOSELYN BAR 8 HOME MED HOME MED FREESTAND EQUIP. EQUIP. ING [facility] COMPLETE WITH GR[facility] HOS BED E0260 YOSELYN YOSELYN SEMI-ELEC 8 HOME MED HOME MED W/ANY EQUIP. EQUIP. TYPE SIDE [facility] RAIL W/MATTRSS DAY CARE S[address] ADULT; ELDER ELDER PER 15 CARE CARE MINUTES DAY CARE S5[address] ADULT; ELDER ELDER PER 15 CARE CARE MINUTES DAY CARE S5[address] ADULT; ELDER ELDER PER 15 CARE CARE MINUTES DAY CARE S5[address] ADULT; ELDER ELDER PER 15 CARE CARE MINUTES DAY CARE S5[address] ADULT; ELDER ELDER PER 15 CARE CARE MINUTES DAY CARE S5[address] ADULT; ELDER ELDER PER 15 CARE CARE MINUTES DAY CARE S5[address] ADULT; ELDER ELDER PER 15 CARE CARE MINUTES DAY CARE S5[address] ADULT; ELDER ELDER PER 15 CARE CARE MINUTES DAY CARE S5[address] ADULT; ELDER ELDER PER 15 CARE CARE MINUTES INTERMIT A4351 OUMAR SENA 8 [facility] CATH; E CENTERS E CENTERS STRAIGHT TIP W/WO COAT EA DAY CARE S5[address] ADULT; ELDER ELDER PER 15 CARE CARE MINUTES DAY CARE S5100 [facility] [address] [place] [address] ADULT; ELDER ELDER PER 15 CARE CARE MINUTES DAY CARE S5100 [facility] [address] [place] [address] ADULT; ELDER ELDER PER 15 CARE CARE MINUTES DAY CARE S5100 [facility] [address] [place] [address] ADULT; ELDER ELDER PER 15 CARE CARE MINUTES DAY CARE S5100 [facility] [address] [place] [address] ADULT; ELDER ELDER PER 15 CARE CARE MINUTES TRAPEZE E0940 YOSELYN TOPETE BAR 8 HOME MED HOME MED FREESTAND EQUIP. EQUIP. [facility] COMPLETE WITH GRAB BAR HOS BED E0260 YOSELYN TOPETE SEMI-ELEC 8 HOME MED HOME MED W/ANY EQUIP. EQUIP. TYPE SIDE [facility] RAIL W/MATTRSS DAY CARE S5100 [facility] [address] [place] [address] ADULT; ELDER ELDER PER 15 CARE CARE MINUTES DAY CARE S[address] ADULT; ELDER ELDER PER 15 CARE CARE MINUTES DAY CARE S5[address] ADULT; ELDER ELDER PER 15 CARE CARE MINUTES DAY CARE S5[address] ADULT; ELDER ELDER PER 15 CARE CARE MINUTES DAY CARE S5[address] ADULT; ELDER ELDER PER 15 CARE CARE MINUTES ADLT SZD T4528 [facility] HOME HOME [facility] HEALTH HEALTH PROD AGENCY AGENCY UNDWEAR XTRA LG EA DAY CARE S5100 [facility] [address] [place] [address] ADULT; ELDER ELDER PER 15 CARE CARE MINUTES DAY CARE S5100 [facility] [address] [place] [address] ADULT; ELDER ELDER PER 15 CARE CARE MINUTES DAY CARE S5100 [facility] [address] [place] [address] ADULT; ELDER ELDER PER 15 CARE CARE MINUTES DAY CARE S5100 [facility] [address] [place] [address] ADULT; ELDER ELDER PER 15 CARE CARE MINUTES DAY CARE S5100 [facility] [address] [place] [address] ADULT; ELDER ELDER PER 15 CARE CARE MINUTES DAY CARE S5[address] ADULT; ELDER ELDER PER 15 CARE CARE MINUTES URINLS 13730 Mary HANDY 8 LEANDRA Messer STICK/TAB PSC LET REAGNT NON-AUTO MICRSCPY DAY CARE S5[address] ADULT; ELDER ELDER PER 15 CARE CARE MINUTES IIV3 75611 RAMANDEEP SABILLON VACCINE 8 [facility] SPLIT CENTER CENTER VIRUS 0.5 ML DOSAGE IM USE ADMINISTR G0008 RAMANDEEP SABILLON ATION OF 8 [facility] INFLUENZA CENTER CENTER VIRUS VACCINE DAY CARE S[address] ADULT; ELDER ELDER PER 15 CARE CARE MINUTES DAY CARE S5[address] ADULT; ELDER ELDER PER 15 CARE CARE MINUTES DAY CARE S5[address] ADULT; ELDER ELDER PER 15 CARE CARE MINUTES DAY CARE S5[address] ADULT; ELDER ELDER PER 15 CARE CARE MINUTES DAY CARE S5[address] ADULT; ELDER ELDER PER 15 CARE CARE MINUTES DAY CARE S5[address] ADULT; ELDER ELDER PER 15 CARE CARE MINUTES SUSCEPTIB 32620 LAB ANIKA LAB ANIKA LTY STDY 8 [employer]IC [employer] ANTIMICRB HOLDING HOLDING IAL MICRO/AGA R DILUTJ CULTURE 76143 LAB ANIKA LAB ANIKA BACTERIAL 8 [employer] HOLDING QUANTTATI VE COLONY COUNT URINE CULTURE 71382 LAB ANIKA LAB ANIKA BCT 8 [employer]IC [employer] HOLDING PTV ID ISOLATE EA URINE CUL BACT 72648 LAB ANIKA LAB ANIKA AEROBIC 8 [employer] AD[employer] HOLDING METHS DEFINITIV E EA ISOL TRAPEZE E0940 YOSELYN TOPETE BAR 8 HOME MED HOME MED FREESTAND EQUIP. EQUIP. [facility] COMPLETE WITH GR[facility] HOS BED E0260 YOSELYN TOPETE SEMI-ELEC 8 HOME MED HOME MED W/ANY EQUIP. EQUIP. TYPE [facility] RAIL W/MATTRSS INTERMIT A4351 OUMAR OUMAR URIN 8 [facility] CATH; E CENTERS E CENTERS STRAIGHT TIP W/WO COAT EA DAY CARE S5[address] ADULT; ELDER ELDER PER 15 CARE CARE MINUTES DAY CARE S5[address] ADULT; ELDER ELDER PER 15 CARE CARE MINUTES DAY CARE S5[address] ADULT; ELDER ELDER PER 15 CARE CARE MINUTES DAY CARE S5[address] ADULT; ELDER ELDER PER 15 CARE CARE MINUTES DAY CARE S5[address] ADULT; ELDER ELDER PER 15 CARE CARE MINUTES DAY CARE S5[address] ADULT; ELDER ELDER PER 15 CARE CARE MINUTES DAY CARE S5[address] ADULT; ELDER ELDER PER 15 CARE CARE MINUTES DAY CARE S5[address] ADULT; ELDER ELDER PER 15 CARE CARE MINUTES DAY CARE S5[address] ADULT; ELDER ELDER PER 15 CARE CARE MINUTES ADLT SZD T4528 [facility] PROD AGENCY AGENCY UNDWEAR XTRA LG EA BLD GLU A4253 M E D M E D TEST/REAG 8 SUPPLIES SUPPLIES T STRIPS HOME BLD GLU SAT-50 DAY CARE S5[address] ADULT; ELDER ELDER PER 15 CARE CARE MINUTES LANCETS A4259 M E D M E D PER BOX 8 SUPPLIES SUPPLIES OF 100 NORMAL A4256 M E D M E D LOW AND 8 SUPPLIES SUPPLIES HIGH CALIBRATO R SOLUTION/ CHIPS SPRING-PO A4258 M E D M E D WERED 8 SUPPLIES SUPPLIES DEVICE FOR LANCET EACH REPL CRUZ A4235 M E D M E D LITHIUM 8 SUPPLIES SUPPLIES MED NECES SHERYL BG MON OWN PT EA DAY CARE S[address] ADULT; ELDER ELDER PER 15 CARE CARE MINUTES DAY CARE S5[address] ADULT; ELDER ELDER PER 15 CARE CARE MINUTES DAY CARE S5[address] ADULT; ELDER ELDER PER 15 CARE CARE MINUTES DAY CARE S5100 [facility] [address] [place] [address] ADULT; ELDER ELDER PER 15 CARE CARE MINUTES DAY CARE S5100 [facility] [address] [place] [address] ADULT; ELDER ELDER PER 15 CARE CARE MINUTES DAY CARE S5100 [facility] [address] [place] [address] ADULT; ELDER ELDER PER 15 CARE CARE MINUTES DAY CARE S5100 [facility] [address] [place] [address] ADULT; ELDER ELDER PER 15 CARE CARE MINUTES DAY CARE S5100 [facility] [address] [place] [address] ADULT; ELDER ELDER PER 15 CARE CARE MINUTES DAY CARE S5100 [facility] [address] [place] [address] ADULT; ELDER ELDER PER 15 CARE CARE MINUTES DAY CARE S5100 [facility] [address] [place] [address] ADULT; ELDER ELDER PER 15 CARE CARE MINUTES DAY CARE S5100 [facility] [address] [place] [address] ADULT; ELDER ELDER PER 15 CARE CARE MINUTES DAY CARE S5100 [address] ADULT; ELDER ELDER PER 15 CARE CARE MINUTES DAY CARE S5100 [facility] [address] [place] [address] ADULT; ELDER ELDER PER 15 CARE CARE MINUTES DAY CARE S5100 [facility] [address] [place] [address] ADULT; ELDER ELDER PER 15 CARE CARE MINUTES DAY CARE S5100 [facility] [address] [place] [address] ADULT; ELDER ELDER PER 15 CARE CARE MINUTES DAY CARE S[address] ADULT; ELDER ELDER PER 15 CARE CARE MINUTES DAY CARE S5100 [facility] [address] [place] [address] ADULT; ELDER ELDER PER 15 CARE CARE MINUTES DAY CARE S5100 [facility] [address] [place] [address] ADULT; ELDER ELDER PER 15 CARE CARE MINUTES DAY CARE S5100 [facility] [address] [place] [address] ADULT; ELDER ELDER PER 15 CARE CARE MINUTES DAY CARE S5100 [facility] [address] [place] [address] ADULT; ELDER ELDER PER 15 CARE CARE MINUTES DAY CARE S5100 [facility] [address] [place] [address] ADULT; ELDER ELDER PER 15 CARE CARE MINUTES [facility] [id number] ROBER, ROBER, MEDICAL 8 KIT A KIT A XM&EVAL COMPRE NEW PT 1/> VST DAY CARE S5100 [facility] [address] [place] [address] ADULT; ELDER ELDER PER 15 CARE CARE MINUTES TRAPEZE [id number] YOSELYNKAY SCHROEDER 8 HOME MED HOME MED FREESTAND EQUIP. EQUIP. [facility] COMPLETE WITH [facility] [id number] YOSELYN YOSELYN SEMI-ELEC 8 HOME MED HOME MED W/ANY EQUIP. EQUIP. TYPE SIDE [facility] RAIL W/MATTRSS DAY CARE S5100 [facility] [address] [place] [address] ADULT; ELDER ELDER PER 15 CARE CARE MINUTES DAY CARE S5100 [facility] [address] [place] [address] ADULT; ELDER ELDER PER 15 CARE CARE MINUTES DAY CARE S5100 [facility] [address] [place] [address] ADULT; ELDER ELDER PER 15 CARE CARE MINUTES DAY CARE S5100 [facility] [address] [place] [address] ADULT; ELDER ELDER PER 15 CARE CARE MINUTES DAY CARE S5100 [facility] [address] [place] [address] ADULT; ELDER ELDER PER 15 CARE CARE MINUTES DAY CARE S5100 [facility] [address] [place] [address] ADULT; ELDER ELDER PER 15 CARE CARE MINUTES DAY CARE S5100 [facility] [address] [place] [address] ADULT; ELDER ELDER PER 15 CARE CARE MINUTES INTERMIT [id number] OUMAR SENA 8 [facility] CATH; E CENTERS E CENTERS STRAIGHT TIP W/WO COAT EA DAY CARE S5100 [facility] [address] [place] [address] ADULT; ELDER ELDER PER 15 CARE CARE MINUTES DAY CARE S5100 [facility] [address] [place] [address] ADULT; ELDER ELDER PER 15 CARE CARE MINUTES DAY CARE S5100 [facility] [address] [place] [address] ADULT; ELDER ELDER PER 15 CARE CARE MINUTES DAY CARE S5100 [facility] [address] [place] [address] ADULT; ELDER ELDER PER 15 CARE CARE MINUTES DAY CARE S5100 [facility] [address] [place] [address] ADULT; ELDER ELDER PER 15 CARE CARE MINUTES DAY CARE S5100 [facility] [address] [place] [address] ADULT; ELDER ELDER PER 15 CARE CARE MINUTES DAY CARE S5100 [facility] [address] [place] [address] ADULT; ELDER ELDER PER 15 CARE CARE MINUTES INCONTINE [id number] [facility] NCE 8 HOME HOME PRODUCT [facility]ALTH HEALTH DISPOSABL AGENCY AGENCY E UNDPAD LARGE EA ADLT SZD [id number] [facility] JOSEMANUEL[facility] DISPBL 8 HOME HOME INCONT HEALTH HEALTH PROD AGENCY AGENCY UNDWEAR XTRA LG EA DAY CARE S5100 [facility] [address] [place] [address] ADULT; ELDER ELDER PER 15 CARE CARE MINUTES DAY CARE S5100 [facility] [address] [place] [address] ADULT; ELDER ELDER PER 15 CARE CARE MINUTES DAY CARE S5100 [facility] [address] [place] [address] ADULT; ELDER ELDER PER 15 CARE CARE MINUTES TRAPEZE [id number] YOSELYN TOPETE BAR 8 HOME MED HOME MED FREESTAND EQUIP. EQUIP. [facility] COMPLETE WITH [facility] [id number] YOSELYN TOPETE SEM[facility]-ELEC 8 HOME MED HOME MED W/ANY EQUIP. EQUIP. TYPE SIDE [facility] RAIL W/MATTRSS DAY CARE S5100 [facility] [address] [place] [address] ADULT; ELDER ELDER PER 15 CARE CARE MINUTES DAY CARE S5100 [facility] [address] [place] [address] ADULT; ELDER ELDER PER 15 CARE CARE MINUTES DAY CARE S5100 [facility] [address] [place] [address] ADULT; ELDER ELDER PER 15 CARE CARE MINUTES DRUG 62037 [facility]AY [facility] VALPROIC INC INC DIPROPYLA CETIC ACID TOTAL AMB A0427 [facility] SERVICE 8 AMBULANCE AMBULANCE ALS SERVICE SERVICE EMERGENCY TRANSPORT LEVEL 1 THROMBOPL 99609 [facility] ASTIN 8 [facility] TIME INC INC PARTIAL PLASMA/WH OLE BLOOD PROTHROMB 49782 [facility]EP S[facility]ILL[facility] IN TIME 8 [facility] INC INC GROUND A0425 [facility] MILEAGE 8 AMBULANCE AMBULANCE PER SERVICE SERVICE STATUTE MILE ECG 20626 RAM[facility] ROUTINE 8 [facility] ECG INC INC W/LEAST 12 LDS TRCG ONLY W/O I&R ECG 81786 RAMANDEEP STODDARD, ROUTINE 8 [facility] W/LEAST PROF SERV 12 LDS I&[place] [address] JAYLENE BURRIS, HEAD/BRAI 8 MEDICAL YONY P N W/O IMAGING CONTRAST ASSOCIATE MATERIAL S IV NFS 40300 [facility] THER 8 [facility] PROPH/DX INC INC 1ST >1 HR 3D 44774 JAYLENE BURRIS, RENDERING 8 MEDICAL YONY P IMAGING W/INTERP& ASSOCIATE [place] [address] [facility] TROPONIN 8 [facility] QUANTITAT INC INC TAYLER BLOOD 11445 [facility] COUNT 8 [facility] COMPLETE INC INC AUTO&AUTO DIFRNTL WBC CREATINE 35211 [facility] KINASE 8 [facility] TOTAL INC INC COMPREHEN 44021 [facility] SIVE 8 [facility] METABOLIC INC INC PANEL CREATINE 04902 RAM[facility] S[facility] KINASE MB 8 [facility] FRACTION INC INC ONLY DAY CARE S5100 [facility] [address] ADULT; ELDER ELDER PER 15 CARE CARE MINUTES DAY CARE S[address] ADULT; ELDER ELDER PER 15 CARE CARE MINUTES DAY CARE S[address] ADULT; ELDER ELDER PER 15 CARE CARE MINUTES DAY CARE S[address] ADULT; ELDER ELDER PER 15 CARE CARE MINUTES BLD GLU A4253 M E D M E D TEST/REAG 8 SUPPLIES SUPPLIES T STRIPS HOME BLD GLU SAT-50 DAY CARE S5100 RAMANDEEPSHEREE SABILLON [address] ADULT; ELDER ELDER PER 15 CARE CARE MINUTES DAY CARE S[address] ADULT; ELDER ELDER PER 15 CARE CARE MINUTES TRAPEZE E0940 YOSELYN SCHROEDER 8 HOME MED HOME MED FREESTAND EQUIP. EQUIP. ING [facility] COMPLETE WITH ART [facility] HOS BED E0260 YOSELYN TOPETE SEMI-ELEC 8 HOME MED HOME MED W/ANY EQUIP. EQUIP. TYPE SIDE [facility] RAIL W/MATTRSS DAY CARE S[address] ADULT; ELDER ELDER PER 15 CARE CARE MINUTES DAY CARE S5[address] ADULT; ELDER ELDER PER 15 CARE CARE MINUTES DAY CARE S5[address] ADULT; ELDER ELDER PER 15 CARE CARE MINUTES MEDICAL 32992 DHS/CO RAMANDEEP [address] ASSMT&IVN BANK ACCT TJ INDIV EACH 15 HI DAY CARE S5[address] ADULT; ELDER ELDER PER 15 CARE CARE MINUTES DAY CARE S5[address] ADULT; ELDER ELDER PER 15 CARE CARE MINUTES ADLT SZD T4528 [facility] 8 HOME HOME INCONT HEALTH HEALTH PROD AGENCY AGENCY UNDWEAR XTRA LG EA DAY CARE S[address] ADULT; ELDER ELDER PER 15 CARE CARE MINUTES DAY CARE S5100 [address] ADULT; ELDER ELDER PER 15 CARE CARE MINUTES DAY CARE S5[address] ADULT; ELDER ELDER PER 15 CARE CARE MINUTES DAY CARE S5[address] ADULT; ELDER ELDER PER 15 CARE CARE MINUTES TRAPEZE E0940 YOSELYN SCHROEDER 8 HOME MED HOME MED FREESTAND EQUIP. EQUIP. [facility] COMPLETE WITH GRAB [facility] H[facility]ED E0260 YOSELYN TOPETE SEMI-ELEC 8 HOME MED HOME MED W/ANY EQUIP. EQUIP. TYPE SIDE [facility] RAIL W/MATTRSS DAY CARE S[address] ADULT; ELDER ELDER PER 15 CARE CARE MINUTES DAY CARE S5[address] ADULT; ELDER ELDER PER 15 CARE CARE MINUTES DAY CARE S5[address] ADULT; ELDER ELDER PER 15 CARE CARE MINUTES DAY CARE S5[address] ADULT; ELDER ELDER PER 15 CARE CARE MINUTES DAY CARE S5[address] ADULT; ELDER ELDER PER 15 CARE CARE MINUTES DAY CARE S5[address] ADULT; ELDER ELDER PER 15 CARE CARE MINUTES DAY CARE S5100 [facility] [address] [place] [address] ADULT; ELDER ELDER PER 15 CARE CARE MINUTES INTERMIT A4351 OUMAR SENA 8 [facility] CATH; E CENTERS E CENTERS STRAIGHT TIP W/WO COAT EA DAY CARE S5100 [facility] [address] [place] [address] ADULT; ELDER ELDER PER 15 CARE CARE MINUTES DAY CARE S5100 [facility] [address] [place] [address] ADULT; ELDER ELDER PER 15 CARE CARE MINUTES DAY CARE S5100 [facility] [address] [place] [address] ADULT; ELDER ELDER PER 15 CARE CARE MINUTES DAY CARE S5[address] ADULT; ELDER ELDER PER 15 CARE CARE MINUTES DAY CARE S5[address] ADULT; ELDER ELDER PER 15 CARE CARE MINUTES DAY CARE S5[address] ADULT; ELDER ELDER PER 15 CARE CARE MINUTES DAY CARE S5[address] ADULT; ELDER ELDER PER 15 CARE CARE MINUTES DAY CARE S5[address] ADULT; ELDER ELDER PER 15 CARE CARE MINUTES DAY CARE S5[address] ADULT; ELDER ELDER PER 15 CARE CARE MINUTES DAY CARE S5[address] ADULT; ELDER ELDER PER 15 CARE CARE MINUTES DAY CARE S5[address] ADULT; ELDER ELDER PER 15 CARE CARE MINUTES DAY CARE S5[address] ADULT; ELDER ELDER PER 15 CARE CARE MINUTES TRAPEZE E0940 YOSELYN SCHROEDER 8 HOME MED HOME MED FREESTAND EQUIP. EQUIP. [employer] COMPLETE WITH ART SCHROEDER DAY CARE S5100 [facility] [address] [place] [address] ADULT; ELDER ELDER PER 15 CARE CARE MINUTES DAY CARE S5100 [facility] [address] [place] [address] ADULT; ELDER ELDER PER 15 CARE CARE MINUTES AIR PRESS E0197 YOSELYN MATA 8 HOME MED HOME MED MATTRSS EQUIP. EQUIP. [employer] MATTRSS LENGTH&WI [facility] HOS BED E0260 YOSELYN TOPETE SEMI-ELEC 8 HOME MED HOME MED W/ANY EQUIP. EQUIP. [employer] RAIL W/MATTRSS DAY CARE S[address] ADULT; ELDER ELDER PER 15 CARE CARE MINUTES DAY CARE S5[address] ADULT; ELDER ELDER PER 15 CARE CARE MINUTES DAY CARE S5[address] ADULT; ELDER ELDER PER 15 CARE CARE MINUTES DAY CARE S5[address] ADULT; ELDER ELDER PER 15 CARE CARE MINUTES DAY CARE S5[address] ADULT; ELDER ELDER PER 15 CARE CARE MINUTES DAY CARE S5[address] ADULT; ELDER ELDER PER 15 CARE CARE MINUTES ADLT SZD T4528 [facility] 8 HOME HOME [facility] HEALTH HEALTH PROD AGENCY AGENCY UNDWEAR XTRA LG EA DAY CARE S[address] ADULT; ELDER ELDER PER 15 CARE CARE MINUTES DAY CARE S5[address] ADULT; ELDER ELDER PER 15 CARE CARE MINUTES DAY CARE S5[address] ADULT; ELDER ELDER PER 15 CARE CARE MINUTES BLD GLU A4253 M E D M E D TEST/REAG 8 SUPPLIES SUPPLIES T STRIPS HOME BLD GLU 50 DAY CARE S5[address] ADULT; ELDER ELDER PER 15 CARE CARE MINUTES DAY CARE S5[address] ADULT; ELDER ELDER PER 15 CARE CARE MINUTES DAY CARE S5[address] ADULT; ELDER ELDER PER 15 CARE CARE MINUTES DAY CARE S5[address] ADULT; ELDER ELDER PER 15 CARE CARE MINUTES DAY CARE S5[address] ADULT; ELDER ELDER PER 15 CARE CARE MINUTES DAY CARE S5[address] ADULT; ELDER ELDER PER 15 CARE CARE MINUTES DAY CARE S5100 [employer] [facility] [address] [place] [address] ADULT; ELDER ELDER PER 15 CARE CARE MINUTES DAY CARE S5100 RAMANDEEP [employer] [address] [place] [address] ADULT; ELDER ELDER PER 15 CARE CARE MINUTES DAY CARE S5100 RAMANDEEP [facility] [address] [place] [address] ADULT; ELDER ELDER PER 15 CARE CARE MINUTES DAY CARE S5100 RAMANDEEP [employer] [address] [place] [address] ADULT; ELDER ELDER PER 15 CARE CARE MINUTES INTERMIT A4351 OUMAR SENA 8 [facility] CATH; E CENTERS E CENTERS STRAIGHT TIP W/WO COAT EA DAY CARE S5100 RAMANDEEP [facility] [address] [place] [address] ADULT; ELDER ELDER PER 15 CARE CARE MINUTES DAY CARE S5100 [facility]EP [facility] [address] [place] [address] ADULT; ELDER ELDER PER 15 CARE CARE MINUTES DAY CARE S5100 RAMANDEEP RAMANDEEP [address] ADULT; ELDER ELDER PER 15 CARE CARE MINUTES DAY CARE S5100 RAMANDEEP [employer] [address] [place] [address] ADULT; ELDER ELDER PER 15 CARE CARE MINUTES ADLT SZD T4528 [facility] 8 HOME HOME [facility] PROD AGENCY AGENCY UNDWEAR XTRA LG EA DAY CARE S5100 RAMANDEEP RAMANDEEP [address] ADULT; ELDER ELDER PER 15 CARE CARE MINUTES DAY CARE S5100 RAMANDEEP [employer] [address] [place] [address] ADULT; ELDER ELDER PER 15 CARE CARE MINUTES DAY CARE S5100 RAMAN[facility]EP [employer] [address] [place] [address] ADULT; ELDER ELDER PER 15 CARE CARE MINUTES DAY CARE S5100 RAM[facility]EP [employer] [address] [place] [address] ADULT; ELDER ELDER PER 15 CARE CARE MINUTES DAY CARE S5100 RAMANDEEP [employer] [address] [place] [address] ADULT; ELDER ELDER PER 15 CARE CARE MINUTES DAY CARE S5100 RAMAN[facility]EP [employer] [address] [place] [address] ADULT; ELDER ELDER PER 15 CARE CARE MINUTES DAY CARE S5100 RAMANDEEP [employer] [address] [place] [address] ADULT; ELDER ELDER PER 15 CARE CARE MINUTES DAY CARE S5100 RAMANDEEP [employer] [address] [place] [address] ADULT; ELDER ELDER PER 15 CARE CARE MINUTES DAY CARE S5[address] ADULT; ELDER ELDER PER 15 CARE CARE MINUTES DAY CARE S5100 [facility]EP [facility] [address] [place] [address] ADULT; ELDER ELDER PER 15 CARE CARE MINUTES DAY CARE S5100 [facility] [address] [place] [address] ADULT; ELDER ELDER PER 15 CARE CARE MINUTES DAY CARE S5100 RAMANDEEP RAMANDEEP [address] ADULT; ELDER ELDER PER 15 CARE CARE MINUTES DAY CARE S[address] ADULT; ELDER ELDER PER 15 CARE CARE MINUTES DAY CARE S5[address] ADULT; ELDER ELDER PER 15 CARE CARE MINUTES DAY CARE S5[address] ADULT; ELDER ELDER PER 15 CARE CARE MINUTES DAY CARE S[address] ADULT; ELDER ELDER PER 15 CARE CARE MINUTES DAY CARE S5100 [address] ADULT; ELDER ELDER PER 15 CARE CARE MINUTES DAY CARE S5[address] ADULT; ELDER ELDER PER 15 CARE CARE MINUTES DAY CARE S[address] ADULT; ELDER ELDER PER 15 CARE CARE MINUTES INCONTINE T4541 [facility] 8 HOME HOME [facility] HEALTH DISPOSABL AGENCY AGENCY E UNDPAD LARGE EA ADLT SZD T4528 [facility] 8 HOME HOME INCONT HEALTH HEALTH PROD AGENCY AGENCY UNDWEAR XTRA LG EA DAY CARE S[address] ADULT; ELDER ELDER PER 15 CARE CARE MINUTES DAY CARE S5[address] ADULT; ELDER ELDER PER 15 CARE CARE MINUTES Encounters Encounter Start End Date Code Location Performer Type Date HOME [facility] 0 0 HOME OUTPATIEN HEALTH T [facility] - 0 0 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 HOME [facility], 9 9 HOME OUTPATIEN HEALTH T AGENCY OFFICE 75617 TERRY RUIZ 9 9 [facility] T VISIT SERV 15 FOUNDATIO MINUTES HOME [facility], 9 9 DIST OTHER HEALTH DEPT 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 HOME [facility], 9 9 HOME OUTPATIEN HEALTH T [facility] RAM[facility]DEEP - 9 9 [facility] OUTPATIEN INC T HOME [facility], 9 9 DIST OTHER HEALTH DEPT 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 OFFICE 99340 TIM SCHULTE, CONSULTBERTRAND 9 9 MEDICAL NILDA ION SERV NEW/ESTAB FOUNDATIO PATIENT 60 MIN HOME [facility], 9 9 DIST OTHER HEALTH DEPT 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 OFFICE 87206 Mary HANDYPATIEN 9 9 LEANDRA Rhodes VISIT PSC 15 MINUTES OFFICE 83091 Mary HANDYPATIEN 9 9 LEANDRA Messer T VISIT PSC 15 MINUTES HOME [facility], 9 9 DIST OTHER HEALTH DEPT 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 HOME [facility], 9 9 HOME OUTPATIEN HEALTH T [facility] RAMANDEEP - 9 9 [facility] OUTPATIEN INC T HOME [facility], 9 9 DIST OTHER HEALTH DEPT 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 HOME [facility], 9 9 DIST OTHER HEALTH DEPT 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 HOME [facility], 9 9 HOME OUTPATIEN HEALTH T AGENCY OFFICE 00402 Mary MANLEY OUTPATIEN 9 9 LEANDRA Hernandez T VISIT PSC 15 MINUTES HOME [facility], 9 9 DIST OTHER HEALTH DEPT 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 OFFICE 24685 Mary ALMANZAR OUTPATIEN 9 9 LEANDRA PETIT T VISIT 5 PSC MINUTES OFFICE 35290 Mary MANLEY OUTPATIEN 9 9 LEANDRA Hernandez T VISIT PSC 15 MINUTES HOME [facility], 9 9 DIST OTHER HEALTH DEPT 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 HOME [facility], 9 9 HOME OUTPATIEN HEALTH T AGENCY OFFICE 37892 [facility] OUTPATIEN 9 9 HEALTH CO HEALTH T [facility]IT [facility] 15 BANK ACCT MINUTES HOME [facility], 9 9 DIST OTHER HEALTH DEPT 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 HOME [facility], 9 9 DIST OTHER HEALTH DEPT 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 OFFICE 19278 Mary HANDY OUTPATIEN 9 9 LEANDRA Rhodes VISIT PSC 15 MINUTES HOME [facility], 9 9 HOME OUTPATIEN HEALTH T AGENCY HOME [facility], 9 9 DIST OTHER HEALTH DEPT 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 OFFICE 36339 Mary HANDY OUTPATIEN 9 9 LEANDRA Rhodes VISIT 5 PSC MINUTES HOME [facility], 9 9 HOME OUTPATIEN HEALTH T AGENCY HOME [facility], 9 9 DIST OTHER HEALTH DEPT 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 OFFICE 90062 Mary HANDY OUTPATIEN 9 9 MOBLEY MD C T VISIT 5 PSC MINUTES HOME [facility], 9 9 DIST OTHER HEALTH DEPT 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 HOME [facility], 9 9 HOME OUTPATIEN HEALTH T AGENCY OFFICE 33329 Mary HANDY OUTPATIEN 9 9 LEANDRA Messer T VISIT 5 PSC MINUTES OFFICE 68063 Mary HANDY OUTPATIEN 9 9 LEANDRA Messer T VISIT PSC 15 MINUTES HOME [facility], 9 9 DIST OTHER HEALTH DEPT 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 OFFICE 12781 Mary HANDY OUTPATIEN 9 9 LEANDRA Messer T VISIT 5 PSC MINUTES HOME [facility], 9 9 DIST OTHER HEALTH DEPT 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 HOME [facility], 9 9 HOME OUTPATIEN HEALTH T AGENCY HOME [facility], 8 8 DIST OTHER HEALTH DEPT 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 OFFICE 20793 Mary HANDY OUTPATIEN 8 8 LEANDRA Rhodes VISIT 5 PSC MINUTES HOME [facility], 8 8 DIST OTHER HEALTH DEPT 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 HOME [facility], 8 8 DIST OTHER HEALTH DEPT 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 HOME [facility], 8 8 HOME OUTPATIEN HEALTH T AGENCY OFFICE 48615 Mary HANDY OUTPATIEN 8 8 LEANDRA Rhodes VISIT PSC 15 MINUTES EMERGENCY 17032 [facility]EP 8 8 [facility] DEPARTMEN INC T VISIT HIGH/URGE NT SEVERITY EMERGENCY 83116 JEEVAN ORTIZ, 8 8 [facility] DEPARTMEN CORPORATI O T VISIT ON MODERATE SEVERITY HOSPITAL RAM[facility]EP - 8 8 [facility] OUTPATIEN INC T HOME [facility], 8 8 DIST OTHER HEALTH DEPT 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 OFFICE 92195 Mary HANDY OUTPATIEN 8 8 LEANDRA WHITESIDE C T VISIT [facility] 15 MINUTES HOME [facility], 8 8 DIST OTHER HEALTH DEPT 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
--- OUTSIDE RECORDS SUMMARY | 2016-12-16 17:31 | External Medical Summary Rpt ---
Author Author , Organization [employer] Address Unknown Phone Unavailable Care Team Providers Care Manager Of School Name Role Phone ALBA STODDARD, Unavailable Unavailable ALBA STODDARD ANTONIO, Unavailable Unavailable [facility] Unavailable Unavailable SERVICE, [facility] Un[facility] Unavailable CENTERS, [facility] Un[facility] Unavailable INC, [facility] Unavailable Unavailable CENTER, [facility] Unavailable Unavailable CARE, [facility] Unavailable Unavailable INC, [facility] KIT RICHTER, Unavailable Unavailable KIT RICHTER [facility] Unavailable Unavailable [facility], [facility] Unavailable Unavailable HOLDING, [facility] Skyler Penaloza SUPPLIES, M Regis Penaloza Unavailable Unavailable SUPPLIES YONY BURRIS, Unavailable Unavailable YONY BURRIS STEPHEN A, Unavailable Unavailable ALBA MANLEY MARC D, Unavailable Unavailable FLAKITA LEAL [facility] Unavailable Unavailable ASSOCIATES,[facility], [facility] DAMASO ALMANZAR, Unavailable Unavailable DAMASO ALMANZAR BABATUNDE O, Unavailable Unavailable BARNEY ORTIZ [facility] Unavailable Unavailable [facility], 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 [facility] Unavailable Unavailable AGENCY, [facility] Mary MOBLEY WRIGHT, Unavailable Unavailable Mary C Purpose Continuity of Care Document - 08-20-2007 through 2016 Problems Code Diagnosis DOS Provider Status 78065 DIAB W/O 11-11-2009 Skyler Penaloza MENTION SUPPLIES COMP TYPE II/UNS TYPE UNCNTRL 52803 UNSPECIFIED 11-10-2009 [facility] E 4389 UNSPEC LATE 11-07-2009 [facility] EFF HEALTH CEREBRVASC AGENCY DZ DUE CEREBRVASC DZ 7197 DIFFICULTY 11-07-2009 [facility] IN [facility]ALTH AGENCY 34031 OTHER 11-07-2009 [facility] MALAISE AND HEALTH FATIGUE AGENCY 437 OTHER 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[facility] CEREBROVASC ULAR DISEASE 5950 ACUTE 10-24-2009 [facility] 08901 INCOMPLETE 10-24-2009 [facility] EMPTYING INC 4019 UNSPECIFIED 10-17-2009 [facility] DE[facility] HYPERTENSIO 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 N 496 CHRONIC 10-17-2009 [facility] DE[facility] OBSTRUCTION 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 NEC 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[facility], OSIS OF FLAKITA D NAIL 7295 PAIN IN 10-07-2009 PA[facility], SOFT FLAKITA D TISSUES OF LIMB 84175 DIAB W/O 08-02-2009 [facility] COMP TYPE AMERIC II/UNS NOT HOLDING STATED UNCNTRL 96780 OTH FORM 08-02-2009 [facility] EPILEPSY & AMERIC RECUR HOLDING SEIZUR NO INTRACT EPIL 4011 ESSENTIAL 08-02-2009 [facility] HYPERTENSIO AMERIC N, BENIGN HOLDING 4659 ACUTE URIS 08-02-2009 Mary COATS [facility] UNSPECIFIED SITE V5861 LONG-TERM 08-02-2009 Mary MOBLEY (CURRENT) PSC USE OF ANTICOAGULA NTS 5990 URINARY 08-01-2009 [facility] TRACT AMERIC INFECTION HOLDING SITE NOT SPECIFIED 01714 UNSPECIFIED 06-29-2009 [facility]AT[facility] N V0481 NEED 06-01-2009 [facility] PROPHYLACTI HEALTH CENTER VACCINATION &INOCULATIO N FLU 2724 OTHER AND 05-26-2009 [facility] UNSPECIFIED [facility] HYPERLIPIDE ROXANNA 43295 BACKGROUND 04-12-2009 ALFIE RICHTER A RETINOPATHY 58615 HYPERTROPHY 03-31-2009 [facility] W/UR OBST & INC OTH LUTS 4329 UNSPECIFIED 03-10-2009 [facility] L HEMORRHAGE 7365 GENU 03-10-2009 [facility]UM [facility] 88628 OTHER 03-10-2009 [facility] DEFORMITY [facility] INC OF ANKLE AND FOOT OTHER 4779 ALLERGIC 01-20-2009 Mary MOBLEY RHINITIS PSC CAUSE UNSPECIFIED 3449 UNSPECIFIED 12-03-2008 [facility] 436 ACUTE BUT 12-03-2008 [facility] CEREBROVASC ULAR DISEASE 76557 OTHER 11-24-2008 Mary MOBLEY CONVULSIONS PSC E9479 UNSPEC 11-24-2008 [facility] RX/MEDICINA AMERIC L [place]ST[place] [address] MALIG HTN 10-08-2008 [facility] WITHOUT [facility] HEART FAIL 4589 UNSPECIFIED 10-08-2008 [facility] 4660 ACUTE 10-08-2008 [facility] 3320 PARALYSIS 10-01-2008 [facility] 5964 ATONY OF 10-01-2008 [facility] AGENCY V5789 OTHER 10-01-2008 [facility] SPECIFIED HEALTH REHABILITAT AGENCY ION PROCEDURE OTHER 34472 UNSPECIFIED 07-13-[address] [facility]ENTERS 7802 SYNCOPE AND 02-24-2008 Mary MOBLEY COLLAPSE [facility] 7804 DIZZINESS 02-23-2008 [facility] GIDDINESS SERVICE V653 DIETARY 01-21-2008 [facility] SURVEILLANC HEALTH E AND [facility]SEL[facility] B[facility] ACCT V7791 SCREENING 11-06-2007 [facility] FOR LIPOID HEALTH DISORDERS CENTRAL BANK ACCT 7806 FEVER & OTH 09-02-2007 [facility] DISTURBANCE S TEMP REG Immunization Name Date Route CVX Reacti Commen Provid Is Given on t er Refuse d IIV3 [place] No VACCIN [facility] 0.5 ML DOSAGE IM USE IIV3 [place] No VACCIN 2008 [facility] 0.5 ML DOSAGE IM USE IIV3 [place] No VACCIN 2007 [facility] 0.5 ML DOSAGE IM USE Procedures Procedure DOS Code Location Performer Comment DAY CARE S5100 [facility] ADULT[facility] ELDER ELDER PER 15 CARE CARE MINUTES DAY CARE S5100 [facility] ADULT; ELDER ELDER PER 15 CARE CARE MINUTES DAY CARE S5100 [facility] ADULT; ELDER ELDER PER 15 CARE CARE MINUTES BLD GLU A4253 M E D M E D TEST/REAG 0 SUPPLIES SUPPLIES T STRIPS HOME BLD GLU MON-50 LANCETS A4259 M E D M E D PER BOX 0 SUPPLIES SUPPLIES OF 100 INTERMIT A4351 [facility] 0 [place] [facility] CATH; E CENTERS E CENTERS STRAIGHT TIP W/WO COAT EA DAY CARE S5100 [facility] ADULT; ELDER ELDER PER 15 CARE CARE MINUTES DAY CARE S5100 [facility] ADULT; ELDER ELDER PER 15 CARE CARE MINUTES DAY CARE S5100 [facility] ADULT; ELDER ELDER PER 15 CARE CARE MINUTES ADLT SZD T4528 [facility] HEALTH PROD AGENCY AGENCY UNDWEAR XTRA LG EA INCONTINE T4541 [facility] NCE 0 HOME HOME PRODUCT HEALTH HEALTH DISPOSABL AGENCY AGENCY E UNDPAD LARGE EA DAY CARE S5100 [facility] ADULT; ELDER ELDER PER 15 CARE CARE MINUTES DAY CARE S5100 [facility] ADULT; ELDER ELDER PER 15 CARE CARE MINUTES DAY CARE S5100 [facility] ADULT; ELDER ELDER PER 15 CARE CARE MINUTES DAY CARE S5100 [facility] ADULT; ELDER ELDER PER 15 CARE CARE MINUTES DAY CARE S5100 [facility] ADULT; ELDER ELDER PER 15 CARE CARE MINUTES CULTURE 40860 [facility] BACTERIAL 0 [facility] INC INC QUANTTATI VE COLONY COUNT URINE CULTURE 24106 [facility] [place] BCT 0 [facility] ISOL&PRSM INC INC PTV ID ISOLATE EA URINE SUSCEPTIB 65341 [facility] LTY STDY 0 [facility] ANTIMICRB INC INC IAL MICRO/AGA R DILUTJ DAY CARE S5100 [facility] ADULT; ELDER ELDER PER 15 CARE CARE MINUTES DAY CARE S5100 [facility] ADULT; ELDER ELDER PER 15 CARE CARE MINUTES DAY CARE S5100 [facility] ADULT; ELDER ELDER PER 15 CARE CARE MINUTES DAY CARE S5100 [facility] ADULT; ELDER ELDER PER 15 CARE CARE MINUTES DAY CARE S5100 [facility] ADULT; ELDER ELDER PER 15 CARE CARE MINUTES DAY CARE S5100 [facility] ADULT; ELDER ELDER PER 15 CARE CARE MINUTES DAY CARE S5100 [facility] ADULT; ELDER ELDER PER 15 CARE CARE MINUTES DAY CARE S5100 [facility] ADULT; ELDER ELDER PER 15 CARE CARE MINUTES INTERMIT A4351 [facility] URIN 0 [facility] CATH; E CENTERS E CENTERS STRAIGHT TIP W/WO COAT EA DAY CARE S5100 [facility] ADULT; ELDER ELDER PER 15 CARE CARE MINUTES DAY CARE S5100 [facility] ADULT; ELDER ELDER PER 15 CARE CARE MINUTES DAY CARE S5100 [facility] ADULT; ELDER ELDER PER 15 CARE CARE MINUTES DAY CARE S5100 [facility] ADULT; ELDER ELDER PER 15 CARE CARE MINUTES DAY CARE S5100 [facility] ADULT; ELDER ELDER PER 15 CARE CARE MINUTES DAY CARE S5100 [facility] ADULT; ELDER ELDER PER 15 CARE CARE MINUTES ADLT SZD T4528 [facility] AGENCY UNDWEAR XTRA LG EA DAY CARE S5100 [facility] 9 [facility] ADULT; ELDER ELDER PER 15 CARE CARE MINUTES DAY CARE S5100 [facility] 9 [facility] ADULT; ELDER ELDER PER 15 CARE CARE MINUTES DAY CARE S5100 [facility] 9 [facility] ADULT; ELDER ELDER PER 15 CARE CARE MINUTES DAY CARE S5100 [facility] 9 [facility] ADULT; ELDER ELDER PER 15 CARE CARE MINUTES DAY CARE S5100 [facility] 9 [facility] ADULT; ELDER ELDER PER 15 CARE CARE MINUTES DAY CARE S5100 [facility] 9 [facility] ADULT; ELDER ELDER PER 15 CARE CARE MINUTES COLLECTIO 87466 Mary MANLEY, N VENOUS 9 LEANDRA Hernandez BLOOD PSC VENIPUNCT URE IM ADM 42051 Mary MANLEY, PRQ ID 9 LEANDRA Hernandez SUBQ/IM PSC NJXS 1 VACCINE INJ J0702 Mary MANLEY BETAMETHA 9 LEANDRA Hernandez SONE PSC ACETATE & PHOSPHATE 3 MG PROTHROMB 03664 Mary MANLEY, IN TIME 9 LEANDRA Hernandez PSC DRUG 77426 [facility] ASSAY 9 AMERIC AMERIC VALPROIC HOLDING HOLDING DIPROPYLA CETIC ACID TOTAL BASIC 81340 [facility] METABOLIC 9 AMERIC AMERIC PANEL HOLDING HOLDING CALCIUM TOTAL GLUCOSE 12786 Mary MANLEY QUANTITAT 9 LEANDRA Hernandez TAYLER BLOOD PSC XCPT REAGENT STRIP HEMOGLOBI 25128 Mary MANLEY, N 9 LEANDRA Hernandez GLYCOSYLA PSC SUSAN A1C URINLS 61550 Mary ALMANZAR, DIP 9 LEANDRA WHITESIDE DAMASO STICK/TAB PSC LET REAGNT NON-AUTO MICRSCPY SUSCEPTIB 08576 [facility] LTY STDY 9 AMERIC AMERIC ANTIMICRB HOLDING HOLDING IAL MICRO/AGA R DILUTJ CUL BACT 85171 [facility] AEROBIC 9 AMERIC AMERIC ADDL HOLDING HOLDING METHS DEFINITIV E EA ISOL CULTURE 95014 [facility] BACTERIAL 9 AMERIC AMERIC HOLDING HOLDING QUANTTATI VE COLONY COUNT URINE CULTURE 95171 [facility] BCT 9 AMERIC AMERIC ISOL&PRSM HOLDING HOLDING PTV ID ISOLATE EA URINE DAY CARE S[address] ADULT; ELDER ELDER PER 15 CARE CARE MINUTES DAY CARE S[address] ADULT; ELDER ELDER PER 15 CARE CARE MINUTES DAY CARE S[address] ADULT; ELDER ELDER PER 15 CARE CARE MINUTES DAY CARE S[address] ADULT; ELDER ELDER PER 15 CARE CARE MINUTES DAY CARE S[address] ADULT; ELDER ELDER PER 15 CARE CARE MINUTES ADLT SZD T4528 [facility] HOME HOME INCONT HEALTH HEALTH PROD AGENCY AGENCY UNDWEAR XTRA LG EA DEBRIDEME 34713 PAWT, MEL, SHIKHA NAIL 9 FLAKITA Penaloza ANY METHOD 6/> DAY CARE S5100 [facility] SERVICES [address] [place] [address] ADULT; ELDER ELDER PER 15 CARE CARE MINUTES DAY CARE S5100 [facility] [address] [place] [address] ADULT; ELDER ELDER PER 15 CARE CARE MINUTES INTERMIT A4351 [facility] SENA 9 [facility] CATH; E CENTERS E CENTERS STRAIGHT TIP W/WO COAT EA DAY CARE S5100 [facility] [address] [place] [address] ADULT; ELDER ELDER PER 15 CARE CARE MINUTES DAY CARE S5100 [facility] [address] [place] [address] ADULT; ELDER ELDER PER 15 CARE CARE MINUTES DAY CARE S5100 [facility] [address] [place] [address] ADULT; ELDER ELDER PER 15 CARE CARE MINUTES DAY CARE S5100 [facility] [address] [place] [address] ADULT; ELDER ELDER PER 15 CARE CARE MINUTES DAY CARE S5100 [facility] [address] [place] [address] ADULT; ELDER ELDER PER 15 CARE CARE MINUTES DAY CARE S5100 [facility] [address] [place] [address] ADULT; ELDER ELDER PER 15 CARE CARE MINUTES DAY CARE S5100 [facility] [address] [place] [address] ADULT; ELDER ELDER PER 15 CARE CARE MINUTES DAY CARE S5100 [facility] [address] [place] [address] ADULT; ELDER ELDER PER 15 CARE CARE MINUTES DAY CARE S5100 [facility] [address] [place] [address] ADULT; ELDER ELDER PER 15 CARE CARE MINUTES DAY CARE S5100 [facility] [address] [place] [address] ADULT; ELDER ELDER PER 15 CARE CARE MINUTES DAY CARE S5100 [facility] [address] [place] [address] ADULT; ELDER ELDER PER 15 CARE CARE MINUTES DAY CARE S5100 [facility] [address] [place] [address] ADULT; ELDER ELDER PER 15 CARE CARE MINUTES DAY CARE S5100 [facility] [address] [place] [address] ADULT; ELDER ELDER PER 15 CARE CARE MINUTES DAY CARE S5100 [facility] [address] [place] [address] ADULT; ELDER ELDER PER 15 CARE CARE MINUTES INCONTINE T4541 [facility] N[facility] 9 HOME HOME PRODUCT [facility] HEALTH DISPOSABL AGENCY AGENCY E UNDPAD LARGE EA DAY CARE S5100 [facility] [address] [place] [address] ADULT; ELDER ELDER PER 15 CARE CARE MINUTES DAY CARE S5100 [facility] SERVICES [address] [place] [address] ADULT; ELDER ELDER PER 15 CARE CARE MINUTES ADMINISTR G0008 [facility] ATION OF 9 [facility] CENTER VIRUS VACCINE IIV3 48303 [facility] VACCINE 9 [facility] Simp[facility] CENTER VIRUS 0.5 ML DOSAGE IM USE ADLT SZD T4528 [facility] 9 HOME HOME INCONT HEALTH HEALTH PROD AGENCY AGENCY UNDWEAR XTRA LG EA DAY CARE S5100 [facility] SERVICES [address] [place] [address] ADULT; ELDER ELDER PER 15 CARE CARE MINUTES DAY CARE S5100 [facility] [address] ADULT; ELDER ELDER PER 15 CARE CARE MINUTES COLLECTIO 67189 [facility] N VENOUS 9 [facility] [place] [address] [facility] THYROID 9 [facility] STIMULATI INC INC NG HORMONE TSH INTERMIT A4351 [facility] SENA [address] CATH; E CENTERS E CENTERS STRAIGHT TIP W/WO COAT EA BASIC 74367 [facility] METABOLIC 9 [facility] PANEL INC INC CALCIUM TOTAL DAY CARE S5100 [facility] SERVICES [address] [place] [address] ADULT; ELDER ELDER PER 15 CARE CARE MINUTES DAY CARE S5100 [facility] SERVICES [address] [place] [address] ADULT; ELDER ELDER PER 15 CARE CARE MINUTES DAY CARE S5100 [facility] SERVICES [address] [place] [address] ADULT; ELDER ELDER PER 15 CARE CARE MINUTES DAY CARE S5[address] [facility] [address] ADULT; ELDER ELDER PER 15 CARE CARE MINUTES DAY CARE S5100 [facility] SERVICES [address] [place] [address] ADULT; ELDER ELDER PER 15 CARE CARE MINUTES DAY CARE S5100 [facility] [address] [place] [address] ADULT; ELDER ELDER PER 15 CARE CARE MINUTES DAY CARE S[address] ADULT; ELDER ELDER PER 15 CARE CARE MINUTES DAY CARE S[address] ADULT; ELDER ELDER PER 15 CARE [...] SUPPLIES HIGH CALIBRATO R SOLUTION/ CHIPS IIV3 42599 [facility] VACCINE 9 [facility] CENTER VIRUS 0.5 ML DOSAGE IM USE ADMINISTR G0008 [facility] ATION OF 9 [facility] CENTER VIRUS VACCINE BLD GLU A4253 M E D M E D TEST/REAG 9 SUPPLIES SUPPLIES T STRIPS HOME BLD GLU SAT-50 DAY CARE S[address] ADULT; ELDER ELDER PER 15 CARE CARE MINUTES DAY CARE S[address] ADULT; ELDER ELDER PER 15 CARE CARE MINUTES DAY CARE S[address] ADULT; ELDER ELDER PER 15 CARE CARE MINUTES DAY CARE S[address] ADULT; ELDER ELDER PER 15 CARE CARE MINUTES DAY CARE S[address] ADULT; ELDER ELDER PER 15 CARE CARE MINUTES DAY CARE S[address] ADULT; ELDER ELDER PER 15 CARE CARE MINUTES DAY CARE S[address] ADULT; ELDER ELDER PER 15 CARE CARE MINUTES DAY CARE S5[address] ADULT; ELDER ELDER PER 15 CARE CARE MINUTES DAY CARE S[address] ADULT; ELDER ELDER PER 15 CARE CARE MINUTES DAY CARE S[address] ADULT; ELDER ELDER PER 15 CARE CARE MINUTES INTERMIT A4351 [facility] SENA [address] [facility] CATH; E CENTERS E CENTERS STRAIGHT TIP W/WO COAT EA DAY CARE S5100 [facility] [address] ADULT; ELDER ELDER PER 15 CARE CARE MINUTES DAY CARE S5100 [facility] [address] ADULT; ELDER ELDER PER 15 CARE CARE MINUTES DAY CARE S5100 [facility] [address] ADULT; ELDER ELDER PER 15 CARE CARE MINUTES DAY CARE S5100 [facility] [address] ADULT; ELDER ELDER PER 15 CARE CARE MINUTES DAY CARE S5100 [facility] [address] ADULT; ELDER ELDER PER 15 CARE CARE MINUTES ADLT SZD T4528 [facility] PROD AGENCY AGENCY UNDWEAR XTRA LG EA DAY CARE S5100 [facility] [address] ADULT; ELDER ELDER PER 15 CARE CARE MINUTES DAY CARE S5100 [facility] [address] ADULT; ELDER ELDER PER 15 CARE CARE MINUTES DAY CARE S[address] ADULT; ELDER ELDER PER 15 CARE CARE MINUTES [facility] [address] ROBER, ROBER, MEDICAL 9 KIT A KIT A XM&JOELLE COMPRHNSV ESTAB PT 1/> DAY CARE S5100 [facility] [address] ADULT; ELDER ELDER PER 15 CARE CARE MINUTES DAY CARE S5100 [facility] [address] ADULT; ELDER ELDER PER 15 CARE CARE MINUTES DAY CARE S[address] ADULT; ELDER ELDER PER 15 CARE CARE MINUTES DAY CARE S[address] [address] ADULT; ELDER ELDER PER 15 CARE CARE MINUTES DAY CARE S[address] [address] ADULT; ELDER ELDER PER 15 CARE CARE MINUTES COLLECTIO 34490 [facility] N VENOUS 9 [facility] [address] [facility] RETROPERI 9 [facility] TONEAL INC INC REAL TIME W/IMAGE COMPLETE BASIC 46063 [facility] METABOLIC 9 [facility] PANEL INC INC CALCIUM TOTAL DAY CARE S[address] [address] ADULT; ELDER ELDER PER 15 CARE CARE MINUTES DAY CARE S[address] [address] ADULT; ELDER ELDER PER 15 CARE CARE MINUTES DAY CARE S[address] ADULT; ELDER ELDER PER 15 CARE CARE MINUTES DAY CARE S[address] ADULT; ELDER ELDER PER 15 CARE CARE MINUTES DAY CARE S[address] ADULT; ELDER ELDER PER 15 CARE CARE MINUTES DAY CARE S5[address] ADULT; ELDER ELDER PER 15 CARE CARE MINUTES DAY CARE S[address] ADULT; ELDER ELDER PER 15 CARE CARE MINUTES DAY CARE S5[address] ADULT; ELDER ELDER PER 15 CARE CARE MINUTES DAY CARE S[address] ADULT; ELDER ELDER PER 15 CARE CARE MINUTES DAY CARE S[address] ADULT; ELDER ELDER PER 15 CARE CARE MINUTES DAY CARE S[address] ADULT; ELDER ELDER PER 15 CARE CARE MINUTES ADD LW L2270 [facility] CENTRAL EXT 9 BRACE BRACE VARUS/TARI PROSTH PROSTH ROBERTA WILMER INC INC STRAP PAD/LINE PAD TRANS L3620 [facility] ORTHOS 1 9 BRACE BRACE SHOE-ANOT PROSTH PROSTH HER SLD INC INC STIRRUP EXISTING REPAIR L4205 [facility] ORTHOTIC 9 BRACE BRACE DEVC PROSTH PROSTH LABOR INC INC COMPONENT PER 15 MIN DIAB ONLY [id number] [facility] FIT CSTM 9 BRACE BRACE PREP&SPL PROSTH PROSTH SHOE MX INC INC DNSITY INSRT DAY CARE S5[address] ADULT; ELDER ELDER PER 15 CARE CARE MINUTES DAY CARE S5[address] ADULT; ELDER ELDER PER 15 CARE CARE MINUTES DAY CARE S5100 [address] ADULT; ELDER ELDER PER 15 CARE CARE MINUTES DAY CARE S5[address] ADULT; ELDER ELDER PER 15 CARE CARE MINUTES DAY CARE S5[address] ADULT; ELDER ELDER PER 15 CARE CARE MINUTES ADLT SZD [id number] [facility] HOME HOME INCONT HEALTH HEALTH PROD AGENCY AGENCY UNDWEAR XTRA LG EA DAY CARE S[address] ADULT; ELDER ELDER PER 15 CARE CARE MINUTES INTERMIT A4351 OUMAR OUMAR URIN 9 HEALTHCAR HEALTHCAR CATH; E CENTERS E CENTERS STRAIGHT TIP W/WO COAT EA URINLS 29255 A PHYLICIA TAVAREZ 9 LEANDRA Hernandez STICK/TAB PSC LET REAGNT NON-AUTO MICRSCPY CULTURE [id number] [facility] BACTERIAL 9 [employer] QUANTTATI VE COLONY COUNT URINE DAY CARE S[address] ADULT; ELDER ELDER PER 15 CARE CARE MINUTES DAY CARE S5[address] ADULT; ELDER ELDER PER 15 CARE CARE MINUTES DAY CARE S5[address] ADULT; ELDER ELDER PER 15 CARE CARE MINUTES DAY CARE S5[address] ADULT; ELDER ELDER PER 15 CARE CARE MINUTES CULTURE 34079 [facility] BACTERIAL 9 [employer] QUANTTATI VE COLONY COUNT URINE CULTURE 73983 [facility] BCT 9 [employer] ISOL&PRSM HOLDING HOLDING PTV ID ISOLATE EA URINE CUL BACT 29475 [facility] AEROBIC 9 [employer] ADDL [employer]ING HOLDING METHS DEFINITIV E EA ISOL SUSCEPTIB 36586 [facility] LTY STDY 9 [employer] ANTIMICRB HOLDING HOLDING IAL MICRO/AGA R DILUTJ URINLS 07015 A PHYLICIA DANIELS 9 LEANDRA PETIT STICK/TAB PSC LET REAGNT NON-AUTO MICRSCPY DAY CARE S[address] ADULT; ELDER ELDER PER 15 CARE CARE MINUTES DAY CARE S[address] ADULT; ELDER ELDER PER 15 CARE CARE MINUTES DAY CARE S5100 [address] ADULT; ELDER ELDER PER 15 CARE CARE MINUTES DAY CARE S5[address] ADULT; ELDER ELDER PER 15 CARE CARE MINUTES DAY CARE S5[address] ADULT; ELDER ELDER PER 15 CARE CARE MINUTES DAY CARE S5100 [address] ADULT; ELDER ELDER PER 15 CARE CARE MINUTES DAY CARE S5100 [address] ADULT; ELDER ELDER PER 15 CARE CARE MINUTES DAY CARE S[address] ADULT; ELDER ELDER PER 15 CARE CARE MINUTES DAY CARE S[address] ADULT; ELDER ELDER PER 15 CARE CARE MINUTES INTERMIT A4351 OUMAR SENA 9 [facility] CATH; E CENTERS E CENTERS STRAIGHT TIP W/WO COAT EA DAY CARE S5[address] ADULT; ELDER ELDER PER 15 CARE CARE MINUTES DAY CARE S5100 RAMANDEEP [id number] [address] ADULT; ELDER ELDER PER 15 CARE CARE MINUTES DAY CARE S5100 [address] ADULT; ELDER ELDER PER 15 CARE CARE MINUTES DAY CARE S5100 [address] ADULT; ELDER ELDER PER 15 CARE CARE MINUTES DAY CARE S5100 [address] [address] ADULT; ELDER ELDER PER 15 CARE CARE MINUTES DAY CARE S[address] ADULT; ELDER ELDER PER 15 CARE CARE MINUTES ADLT SZD T4528 [facility] PR[facility] AGENCY AGENCY UNDWEAR XTRA LG EA DAY CARE S5100 [address] ADULT; ELDER ELDER PER 15 CARE CARE MINUTES DAY CARE S5100 [address] [address] ADULT; ELDER ELDER PER 15 CARE CARE MINUTES DAY CARE S5100 [address] ADULT; ELDER ELDER PER 15 CARE CARE MINUTES DAY CARE S5100 [facility] [address] [place] [address] ADULT; ELDER ELDER PER 15 CARE CARE MINUTES DAY CARE S5100 [facility] [address] [place] [address] ADULT; ELDER ELDER PER 15 CARE CARE MINUTES DAY CARE S5100 [facility] [address] [place] [address] ADULT; ELDER ELDER PER 15 CARE CARE MINUTES DAY CARE S5100 [facility] [address] [place] [address] ADULT; ELDER ELDER PER 15 CARE CARE MINUTES DAY CARE S5100 [facility] [address] [place] [address] ADULT; ELDER ELDER PER 15 CARE CARE MINUTES DAY CARE S5100 [facility] [address] [place] [address] ADULT; ELDER ELDER PER 15 CARE CARE MINUTES DAY CARE S5100 [facility] [address] [place] [address] ADULT; ELDER ELDER PER 15 CARE CARE MINUTES DAY CARE S5100 RAMANDEEP RAAMNDEEP [address] ADULT; ELDER ELDER PER 15 CARE CARE MINUTES DAY CARE S5100 [address] ADULT; ELDER ELDER PER 15 CARE CARE MINUTES DAY CARE S5100 [facility] [address] [place] [address] ADULT; ELDER ELDER PER 15 CARE CARE MINUTES DAY CARE S5[address] ADULT; ELDER ELDER PER 15 CARE CARE MINUTES DAY CARE S[address] ADULT; ELDER ELDER PER 15 CARE CARE MINUTES DAY CARE S5100 RAMANDEEP RAMANDEEP [address] ADULT; ELDER ELDER PER 15 CARE CARE MINUTES DAY CARE S5100 [facility] [address] [place] [address] ADULT; ELDER ELDER PER 15 CARE CARE MINUTES DAY CARE S5100 [facility] [address] [place] [address] ADULT; ELDER ELDER PER 15 CARE CARE MINUTES DAY CARE S5100 [facility] [address] [place] [address] ADULT; ELDER ELDER PER 15 CARE CARE MINUTES TRAPEZE E0940 YOSELYN SCHROEDER 9 HOME MED HOME MED FREESTAND EQUIP. EQUIP. ING [facility] COMPLETE WITH ART SCHROEDER HOS BED E0260 YOSLEYN TOPETE SEMI-ELEC 9 HOME MED HOME MED W/ANY EQUIP. EQUIP. TYPE SIDE [facility] RAIL W/MATTRSS DAY CARE S5[address] ADULT; ELDER ELDER PER 15 CARE CARE MINUTES DAY CARE S5100 [address] ADULT; ELDER ELDER PER 15 CARE CARE MINUTES DAY CARE S5[address] ADULT; ELDER ELDER PER 15 CARE CARE MINUTES DAY CARE S5[address] ADULT; ELDER ELDER PER 15 CARE CARE MINUTES DAY CARE S5[address] ADULT; ELDER ELDER PER 15 CARE CARE MINUTES DAY CARE S5100 [address] ADULT; ELDER ELDER PER 15 CARE CARE MINUTES COLLECTIO 56485 Mary HANDY VENOUS 9 LEANDRA Messer BLOOD PSC VENIPUNCT URE PROTHROMB [id number] Mary HANDY IN TIME 9 LEANDRA Messer PSC DRUG 44889 LAB ANIKA LAB ANIKA ASSAY 9 [employer]IC [employer] VALPROIC HOLDING HOLDING DIPROPYLA CETIC ACID TOTAL BASIC 89729 LAB ANIKA LAB ANIKA METABOLIC 9 AMERIC AMERIC PANEL HOLDING HOLDING CALCIUM TOTAL ADLT SZD T4528 [facility] HOME HOME [facility]ALTH HEALTH PROD AGENCY AGENCY UNDWEAR XTRA LG EA DAY CARE S5[address] ADULT; ELDER ELDER PER 15 CARE CARE MINUTES DAY CARE S5100 [address] ADULT; ELDER ELDER PER 15 CARE CARE MINUTES DAY CARE S5100 [address] ADULT; ELDER ELDER PER 15 CARE CARE MINUTES DAY CARE S5100 [address] ADULT; ELDER ELDER PER 15 CARE CARE MINUTES URINLS 16356 Mary HANDY DIP 9 LEANDRA Messer STICK/TAB PSC LET REAGNT NON-AUTO MICRSCPY INCONTINE T4541 [facility] 9 HOME HOME [facility] HEALTH DISPOSABL AGENCY AGENCY E UNDPAD LARGE EA DAY CARE S5[address] ADULT; ELDER ELDER PER 15 CARE CARE MINUTES DAY CARE S5100 [address] ADULT; ELDER ELDER PER 15 CARE CARE MINUTES DAY CARE S5100 [facility] [address] [place] [address] ADULT; ELDER ELDER PER 15 CARE CARE MINUTES DAY CARE S5100 [facility] [address] [place] [address] ADULT; ELDER ELDER PER 15 CARE CARE MINUTES TRAPEZE E0940 YOSELYN YOSELYN BAR 9 HOME MED HOME MED FREESTAND EQUIP. EQUIP. ING [facility] COMPLETE WITH GRAB BAR HOS BED E0260 YOSELYN YOSELYN SEMI-ELEC 9 HOME MED HOME MED W/ANY EQUIP. EQUIP. TYPE SIDE [facility] RAIL W/MATTRSS DAY CARE S5100 [facility] [address] [place] [address] ADULT; ELDER ELDER PER 15 CARE CARE MINUTES DAY CARE S5100 [facility] [address] [place] [address] ADULT; ELDER ELDER PER 15 CARE CARE MINUTES DAY CARE S5100 [address]DEEP[address] ADULT; ELDER ELDER PER 15 CARE CARE MINUTES DAY CARE S5[address] ADULT; ELDER ELDER PER 15 CARE CARE MINUTES DAY CARE S5100 [address]EP RAMANDEEP[address] ADULT; ELDER ELDER PER 15 CARE CARE MINUTES DAY CARE S5100 [facility] [address] [place] [address] ADULT; ELDER ELDER PER 15 CARE CARE MINUTES DAY CARE S5[address] ADULT; ELDER ELDER PER 15 CARE CARE MINUTES DAY CARE S5100 [address] [address]ANDEEP[address] ADULT; ELDER ELDER PER 15 CARE CARE MINUTES DAY CARE S5100 [address] [address]ANDEEP[address] ADULT; ELDER ELDER PER 15 CARE CARE MINUTES DAY CARE S5100 [facility] [address] [place] [address] ADULT; ELDER ELDER PER 15 CARE CARE MINUTES DAY CARE S5100 [facility] [address] [place] [address] ADULT; ELDER ELDER PER 15 CARE CARE MINUTES CULTURE 61321 LAB ANIKA LAB ANIKA BCT 9 AMERIC AMERIC ISOL&PRSM HOLDING HOLDING PTV ID ISOLATE EA URINE CUL BACT 16720 LAB ANIKA LAB ANIKA AEROBIC 9 AMERIC AMERIC ADDL HOLDING HOLDING METHS DEFINITIV E EA ISOL CULTURE 48884 LAB ANIKA LAB ANIKA BACTERIAL 9 [employer] HOLDING QUANTTATI VE COLONY COUNT URINE SUSCEPTIB 96102 LAB ANIKA LAB ANIKA LTY STDY 9 AMERIC AMERIC ANTIMICRB HOLDING HOLDING IAL MICRO/AGA R DILUTJ DAY CARE S5[address] ADULT; ELDER ELDER PER 15 CARE CARE MINUTES URINLS 18361 Mary HANDY DIP 9 LEANDRA Messer STICK/TAB PSC LET REAGNT NON-AUTO MICRSCPY DAY CARE S5[address] ADULT; ELDER ELDER PER 15 CARE CARE MINUTES DAY CARE S5100 [address] ADULT; ELDER ELDER PER 15 CARE CARE MINUTES DAY CARE S5[address] ADULT; ELDER ELDER PER 15 CARE CARE MINUTES CERVICAL L0172 PROSTHETI PROSTHETI COLLAR 9 C&ORTHOTI C&ORTHOTI SEMI-RIGI C C D FOAM ASSOCIATE ASSOCIATE TWO [employer] [facility] S,LLC PREFAB DAY CARE S5[address] ADULT; ELDER ELDER PER 15 CARE CARE MINUTES DAY CARE S5[address] ADULT; ELDER ELDER PER 15 CARE CARE MINUTES TRAPEZE E0940 YOSELYN TOPETE BAR 9 HOME MED HOME MED FREESTAND EQUIP. EQUIP. ING [facility] COMPLETE WITH GRAB BAR HOS BED E0260 YOSELYN TOPETE SEMI-ELEC 9 HOME MED HOME MED W/ANY EQUIP. EQUIP. TYPE SIDE [facility] RAIL W/MATTRSS DAY CARE S[address] ADULT; ELDER ELDER PER 15 CARE CARE MINUTES ADLT SZD T4528 [facility] HOME HOME INCONT HEALTH HEALTH PROD AGENCY AGENCY UNDWEAR XTRA LG EA DAY CARE S5[address] ADULT; ELDER ELDER PER 15 CARE CARE MINUTES DAY CARE S5[address] ADULT; ELDER ELDER PER 15 CARE CARE MINUTES DAY CARE S5[address] ADULT; ELDER ELDER PER 15 CARE CARE MINUTES DAY CARE S5[address] ADULT; ELDER ELDER PER 15 CARE CARE MINUTES INTERMIT A4351 OUMARWILLY OSEGUERA URIN 9 [facility] CATH; E CENTERS E CENTERS STRAIGHT TIP W/WO COAT EA URINLS 41843 Mary HANDY 9 LEANDRA Messer STICK/TAB PSC LET REAGNT NON-AUTO MICRSCPY DAY CARE S5[address] ADULT; ELDER ELDER PER 15 CARE CARE MINUTES DAY CARE S5[address] ADULT; ELDER ELDER PER 15 CARE CARE MINUTES DAY CARE S5[address] ADULT; ELDER ELDER PER 15 CARE CARE MINUTES DAY CARE S5[address] ADULT; ELDER ELDER PER 15 CARE CARE MINUTES DAY CARE S5[address] ADULT; ELDER ELDER PER 15 CARE CARE MINUTES DAY CARE S5[address] ADULT; ELDER ELDER PER 15 CARE CARE MINUTES CULTURE 48003 LAB ANIKA LAB ANIKA BCT 9 AMERIC [employer] ISOL[employer]PRSM HOLDING HOLDING PTV ID ISOLATE EA URINE DAY CARE S5[address] ADULT; ELDER ELDER PER 15 CARE CARE MINUTES CULTURE 57808 LAB ANIKA LAB ANIKA BACTERIAL 9 [employer]ING HOLDING QUANTTATI VE COLONY COUNT URINE CUL BACT 44918 LAB ANIKA LAB ANIKA AEROBIC 9 AMERIC AMER[employer] ADDL HOLDING HOLDING METHS DEFINITIV E EA ISOL SUSCEPTIB 63289 LAB ANIKA LAB ANIKA LTY STDY 9 AMERIC AMERIC ANTIMICRB HOLDING HOLDING IAL MICRO/AGA R DILUTJ URINLS 20089 Mary HANDY 9 LEANDRA Messer STICK/TAB PSC LET REAGNT NON-AUTO MICRSCPY TRAPEZE E0940 YOSELYN SCHROEDER 9 HOME MED HOME MED FREESTAND EQUIP. EQUIP. ING [facility] COMPLETE WITH GRAMarie SCHROEDER HOS BED E0260 YOSELYN TOPETE SEMI-ELEC 9 HOME MED HOME MED W/ANY EQUIP. EQUIP. TYPE SIDE [facility] RAIL W/MATTRSS DAY CARE S5[address] ADULT; ELDER ELDER PER 15 CARE CARE MINUTES DAY CARE S5[address] ADULT; ELDER ELDER PER 15 CARE CARE MINUTES DAY CARE S5[address] ADULT; ELDER ELDER PER 15 CARE CARE MINUTES DAY CARE S5[address] ADULT; ELDER ELDER PER 15 CARE CARE MINUTES DAY CARE S5[address] ADULT; ELDER ELDER PER 15 CARE CARE MINUTES DAY CARE S5[address] ADULT; ELDER ELDER PER 15 CARE CARE MINUTES DAY CARE S5[address] ADULT; ELDER ELDER PER 15 CARE CARE MINUTES INTERMIT A4351 OUMAR SENA 9 HEALTHCAR HEALTHCAR CATH; E CENTERS E CENTERS STRAIGHT TIP W/WO COAT EA DAY CARE S5[address] ADULT; ELDER ELDER PER 15 CARE CARE MINUTES DAY CARE S5[address] ADULT; ELDER ELDER PER 15 CARE CARE MINUTES ADLT SZD T4528 [facility] 9 HOME HOME [facility] HEALTH HEALTH PROD AGENCY AGENCY UNDWEAR XTRA LG EA DAY CARE S[address] ADULT; ELDER ELDER PER 15 CARE [...] SUPPLIES SUPPLIES OF 100 DAY CARE S5[address] ADULT; ELDER ELDER PER 15 CARE CARE MINUTES DAY CARE S5[address] ADULT; ELDER ELDER PER 15 CARE CARE MINUTES DAY CARE S5[address] ADULT; ELDER ELDER PER 15 CARE CARE MINUTES DAY CARE S5[address] ADULT; ELDER ELDER PER 15 CARE CARE MINUTES SUSCEPTIB 38001 LAB ANIKA LAB ANIKA LTY STDY 8 AMERIC AMERIC ANTIMICRB HOLDING HOLDING IAL MICRO/AGA R DILUTJ CUL BACT 82686 LAB ANIKA LAB ANIKA AEROBIC 8 AMERIC AMERIC ADDL HOLDING HOLDING METHS DEFINITIV E EA ISOL CULTURE 23818 LAB ANIKA LAB ANIKA BCT 8 AMERIC AMERIC ISOL&PRSM HOLDING HOLDING PTV ID ISOLATE EA URINE CULTURE 76433 LAB ANIKA LAB ANIKA BACTERIAL 8 AMERIC [employer] HOLDING HOLDING QUANTTATI VE COLONY COUNT URINE DAY CARE S[address] ADULT; ELDER ELDER PER 15 CARE CARE MINUTES TRAPEZE E0940 YOSELYN YOSELYN BAR 8 HOME MED HOME MED FREESTAND EQUIP. EQUIP. ING [facility] COMPLETE WITH GRAB BAR HOS BED E0260 YOSELYN YOSELYN SEMI-ELEC 8 HOME MED HOME MED W/ANY EQUIP. EQUIP. TYPE SIDE [facility] RAIL W/MATTRSS DAY CARE S[address] ADULT; ELDER ELDER PER 15 CARE CARE MINUTES DAY CARE S5[address] ADULT; ELDER ELDER PER 15 CARE CARE MINUTES DAY CARE S5[address] ADULT; ELDER ELDER PER 15 CARE CARE MINUTES DAY CARE S5[address] ADULT; ELDER ELDER PER 15 CARE CARE MINUTES DAY CARE S5[address] ADULT; ELDER ELDER PER 15 CARE CARE MINUTES DAY CARE S5[address] ADULT; ELDER ELDER PER 15 CARE CARE MINUTES DAY CARE S5[address] ADULT; ELDER ELDER PER 15 CARE CARE MINUTES DAY CARE S5[address] ADULT; ELDER ELDER PER 15 CARE CARE MINUTES DAY CARE S5[address] ADULT; ELDER ELDER PER 15 CARE CARE MINUTES INTERMIT A4351 OUMAR SENA 8 HEALTHCAR HEALTHCAR CATH; E CENTERS E CENTERS STRAIGHT TIP W/WO COAT EA DAY CARE S5[address] ADULT; ELDER ELDER PER 15 CARE CARE MINUTES DAY CARE S5100 [facility] [address] [place] [address] ADULT; ELDER ELDER PER 15 CARE CARE MINUTES DAY CARE S5100 [facility] [address] [place] [address] ADULT; ELDER ELDER PER 15 CARE CARE MINUTES DAY CARE S5100 [facility] [address] [place] [address] ADULT; ELDER ELDER PER 15 CARE CARE MINUTES DAY CARE S5100 [facility] [address] [place] [address] ADULT; ELDER ELDER PER 15 CARE CARE MINUTES TRAPEZE E0940 YOSELYN TOPETE BAR 8 HOME MED HOME MED FREESTAND EQUIP. EQUIP. [facility] COMPLETE WITH GRAB BAR HOS BED E0260 YOSELYN TOPETE SEMI-ELEC 8 HOME MED HOME MED W/ANY EQUIP. EQUIP. TYPE SIDE [facility] RAIL W/MATTRSS DAY CARE S5100 [facility] [address] [place] [address] ADULT; ELDER ELDER PER 15 CARE CARE MINUTES DAY CARE S5[address] ADULT; ELDER ELDER PER 15 CARE CARE MINUTES DAY CARE S5[address] ADULT; ELDER ELDER PER 15 CARE CARE MINUTES DAY CARE S5[address] ADULT; ELDER ELDER PER 15 CARE CARE MINUTES DAY CARE S5[address] ADULT; ELDER ELDER PER 15 CARE CARE MINUTES ADLT SZD T4528 [facility] 8 HOME HOME [facility] HEALTH HEALTH PROD AGENCY AGENCY UNDWEAR XTRA LG EA DAY CARE S5100 [facility] [address] [place] [address] ADULT; ELDER ELDER PER 15 CARE CARE MINUTES DAY CARE S5100 [facility] [address] [place] [address] ADULT; ELDER ELDER PER 15 CARE CARE MINUTES DAY CARE S5100 [facility] [address] [place] [address] ADULT; ELDER ELDER PER 15 CARE CARE MINUTES DAY CARE S5100 [facility] [address] [place] [address] ADULT; ELDER ELDER PER 15 CARE CARE MINUTES DAY CARE S5100 [facility] [address] [place] [address] ADULT; ELDER ELDER PER 15 CARE CARE MINUTES DAY CARE S5[address] ADULT; ELDER ELDER PER 15 CARE CARE MINUTES URINLS 57747 Mary HANDY 8 LEANDRA Messer STICK/TAB PSC LET REAGNT NON-AUTO MICRSCPY DAY CARE S5[address] ADULT; ELDER ELDER PER 15 CARE CARE MINUTES IIV3 11151 RAMANDEEP SABILLON VACCINE 8 [facility] CENTER VIRUS 0.5 ML DOSAGE IM USE ADMINISTR G0008 RAMANDEEP SABILLON ATION OF 8 [facility] CENTER VIRUS VACCINE DAY CARE S[address] ADULT; ELDER ELDER PER 15 CARE CARE MINUTES DAY CARE S5[address] ADULT; ELDER ELDER PER 15 CARE CARE MINUTES DAY CARE S5[address] ADULT; ELDER ELDER PER 15 CARE CARE MINUTES DAY CARE S5[address] ADULT; ELDER ELDER PER 15 CARE CARE MINUTES DAY CARE S5[address] ADULT; ELDER ELDER PER 15 CARE CARE MINUTES DAY CARE S5[address] ADULT; ELDER ELDER PER 15 CARE CARE MINUTES SUSCEPTIB 22695 LAB ANIKA LAB ANIKA LTY STDY 8 AMERIC AMERIC ANTIMICRB HOLDING HOLDING IAL MICRO/AGA R DILUTJ CULTURE 76101 LAB ANIKA LAB ANIKA BACTERIAL 8 [employer]IC [employer] HOLDING HOLDING QUANTTATI VE COLONY COUNT URINE CULTURE 43999 LAB ANIKA LAB ANIKA BCT 8 AMERIC AMERIC ISOL&PRSM HOLDING HOLDING PTV ID ISOLATE EA URINE CUL BACT 75144 LAB ANIKA LAB ANIKA AEROBIC 8 AMERIC AMERIC ADDL HOLDING HOLDING METHS DEFINITIV E EA ISOL TRAPEZE E0940 YOSELYN TOPETE BAR 8 HOME MED HOME MED FREESTAND EQUIP. EQUIP. ING [facility] COMPLETE WITH GRAB BAR HOS BED E0260 YOSELYN TOPETE SEMI-ELEC 8 HOME MED HOME MED W/ANY EQUIP. EQUIP. TYPE SIDE [facility] RAIL W/MATTRSS INTERMIT A4351 OUMAR OUMAR URIN 8 HEALTHCAR HEALTHCAR CATH; E CENTERS E CENTERS STRAIGHT TIP W/WO COAT EA DAY CARE S5[address] ADULT; ELDER ELDER PER 15 CARE CARE MINUTES DAY CARE S5[address] ADULT; ELDER ELDER PER 15 CARE CARE MINUTES DAY CARE S5[address] ADULT; ELDER ELDER PER 15 CARE CARE MINUTES DAY CARE S5[address] ADULT; ELDER ELDER PER 15 CARE CARE MINUTES DAY CARE S5[address] ADULT; ELDER ELDER PER 15 CARE CARE MINUTES DAY CARE S5[address] ADULT; ELDER ELDER PER 15 CARE CARE MINUTES DAY CARE S5[address] ADULT; ELDER ELDER PER 15 CARE CARE MINUTES DAY CARE S5[address] ADULT; ELDER ELDER PER 15 CARE CARE MINUTES DAY CARE S5[address] ADULT; ELDER ELDER PER 15 CARE CARE MINUTES ADLT SZD T4528 [facility] PROD AGENCY AGENCY UNDWEAR XTRA LG EA BLD GLU A4253 M E D M E D TEST/REAG 8 SUPPLIES SUPPLIES T STRIPS HOME BLD GLU SAT-50 DAY CARE S5[address] ADULT; ELDER ELDER PER 15 CARE [...] MON OWN PT EA DAY CARE S5[address] ADULT; ELDER ELDER PER 15 CARE CARE MINUTES DAY CARE S5[address] ADULT; ELDER ELDER PER 15 CARE CARE MINUTES DAY CARE S5[address] ADULT; ELDER ELDER PER 15 CARE CARE MINUTES DAY CARE S5100 [facility] [address] [place] [address] ADULT; ELDER ELDER PER 15 CARE CARE MINUTES DAY CARE S5100 [facility] [address] [place] [address] ADULT; ELDER ELDER PER 15 CARE CARE MINUTES DAY CARE S5100 [facility] [address] [place] [address] ADULT; ELDER ELDER PER 15 CARE CARE MINUTES DAY CARE S5100 [facility] [address] [place] [address] ADULT; ELDER ELDER PER 15 CARE CARE MINUTES DAY CARE S5100 [facility] [address] [place] [address] ADULT; ELDER ELDER PER 15 CARE CARE MINUTES DAY CARE S5100 [facility] [address] [place] [address] ADULT; ELDER ELDER PER 15 CARE CARE MINUTES DAY CARE S5100 [facility] [address] [place] [address] ADULT; ELDER ELDER PER 15 CARE CARE MINUTES DAY CARE S5100 [facility] [address] [place] [address] ADULT; ELDER ELDER PER 15 CARE CARE MINUTES DAY CARE S[address] ADULT; ELDER ELDER PER 15 CARE CARE MINUTES DAY CARE S5100 [facility] [address] [place] [address] ADULT; ELDER ELDER PER 15 CARE CARE MINUTES DAY CARE S5100 [facility] [address] [place] [address] ADULT; ELDER ELDER PER 15 CARE CARE MINUTES DAY CARE S5100 [facility] [address] [place] [address] ADULT; ELDER ELDER PER 15 CARE CARE MINUTES DAY CARE S[address] ADULT; ELDER ELDER PER 15 CARE CARE MINUTES DAY CARE S5100 [facility] [address] [place] [address] ADULT; ELDER ELDER PER 15 CARE CARE MINUTES DAY CARE S5100 [facility] [address] [place] [address] ADULT; ELDER ELDER PER 15 CARE CARE MINUTES DAY CARE S5100 [facility] [address] [place] [address] ADULT; ELDER ELDER PER 15 CARE CARE MINUTES DAY CARE S5100 [facility] [address] [place] [address] ADULT; ELDER ELDER PER 15 CARE CARE MINUTES DAY CARE S5100 [facility] [address] [place] [address] ADULT; ELDER ELDER PER 15 CARE CARE MINUTES [facility] [id number] ROBER, ROBER, MEDICAL 8 KIT A KIT A XM&EVAL COMPRE NEW PT 1/> VST DAY CARE S5100 [facility] [address] [place] [address] ADULT; ELDER ELDER PER 15 CARE CARE MINUTES TRAPEZE E0940 YOSELYNKAY SCHROEDER 8 HOME MED HOME MED FREESTAND EQUIP. EQUIP. [facility] COMPLETE WITH GRAB ELDA HOS BED E0260 YOSELYN YOSELYN SEMI-ELEC 8 HOME MED HOME MED W/ANY EQUIP. EQUIP. TYPE SIDE [facility] RAIL W/MATTRSS DAY CARE S5100 [facility] [address] [place] [address] ADULT; ELDER ELDER PER 15 CARE CARE MINUTES DAY CARE S5100 [facility] [address] [place] [address] ADULT; ELDER ELDER PER 15 CARE CARE MINUTES DAY CARE S5100 [facility] [address] [place] [address] ADULT; ELDER ELDER PER 15 CARE CARE MINUTES DAY CARE S5100 [facility] [address] [place] [address] ADULT; ELDER ELDER PER 15 CARE CARE MINUTES DAY CARE S5100 [facility] [address] [place] [address] ADULT; ELDER ELDER PER 15 CARE CARE MINUTES DAY CARE S5100 [facility] [address] [place] [address] ADULT; ELDER ELDER PER 15 CARE CARE MINUTES DAY CARE S5100 [facility] [address] [place] [address] ADULT; ELDER ELDER PER 15 CARE CARE MINUTES INTERMIT [id number] [facility] SENA [facility] CATH; E CENTERS E CENTERS STRAIGHT TIP W/WO COAT EA DAY CARE S5100 [facility] [address] [place] [address] ADULT; ELDER ELDER PER 15 CARE CARE MINUTES DAY CARE S5100 [facility] [address] [place] [address] ADULT; ELDER ELDER PER 15 CARE CARE MINUTES DAY CARE S5100 [facility] [address] [place] [address] ADULT; ELDER ELDER PER 15 CARE CARE MINUTES DAY CARE S5100 [facility] [address] [place] [address] ADULT; ELDER ELDER PER 15 CARE CARE MINUTES DAY CARE S5100 [facility] [address] [place] [address] ADULT; ELDER ELDER PER 15 CARE CARE MINUTES DAY CARE S5100 [facility] [address] [place] [address] ADULT; ELDER ELDER PER 15 CARE CARE MINUTES DAY CARE S5100 [facility] [address] [place] [address] ADULT; ELDER ELDER PER 15 CARE CARE MINUTES INCONTINE [id number] [facility] NCE 8 HOME HOME PRODUCT [facility] DISPOSABL AGENCY AGENCY E UNDPAD LARGE EA ADLT SZD [id number] [facility] DISPBL 8 HOME HOME INCONT HEALTH HEALTH PROD AGENCY AGENCY UNDWEAR XTRA LG EA DAY CARE S5100 [facility] [address] [place] [address] ADULT; ELDER ELDER PER 15 CARE CARE MINUTES DAY CARE S5100 [facility] [address] [place] [address] ADULT; ELDER ELDER PER 15 CARE CARE MINUTES DAY CARE S5100 [facility] [address] [place] [address] ADULT; ELDER ELDER PER 15 CARE CARE MINUTES TRAPEZE [id number] [facility] BAR 8 HOME MED HOME MED FREESTAND EQUIP. EQUIP. ING [facility] COMPLETE WITH [facility]ED [id number] [facility] SEMI-ELEC 8 HOME MED HOME MED W/ANY EQUIP. EQUIP. TYPE SIDE [facility] RAIL W/MATTRSS DAY CARE S5100 [facility] [address] [place] [address] ADULT; ELDER ELDER PER 15 CARE CARE MINUTES DAY CARE S5100 [facility] [address] [place] [address] ADULT; ELDER ELDER PER 15 CARE CARE MINUTES DAY CARE S5100 [facility] [address] [place] [address] ADULT; ELDER ELDER PER 15 CARE CARE MINUTES DRUG [id number] [facility] ASSAY 8 [facility] VALPROIC [facility] INC DIPROPYLA CETIC ACID TOTAL AMB [id number] [facility] SERVICE 8 AMBULANCE AMBULANCE ALS SERVICE SERVICE EMERGENCY TRANSPORT LEVEL 1 THROMBOPL [id number] [facility] ASTIN 8 [facility] TIME INC INC PARTIAL PLASMA/WH OLE BLOOD PROTHROMB 19654 [facility] IN TIME 8 [facility] INC INC GROUND [id number] [facility] MILEAGE 8 AMBULANCE AMBULANCE PER SERVICE SERVICE STATUTE MILE ECG [id number] [facility] ROUTINE 8 [facility] ECG INC INC W/LEAST 12 LDS TRCG ONLY W/O I&R ECG [id number] [facility] STODDARD, ROUTINE 8 [facility] W/LEAST PROF SERV 12 [place] [address] JAYLENE BURRIS, HEAD/BRAI 8 MEDICAL YONY P N W/O IMAGING CONTRAST [place]OC[place] N[place] [address]153 RAMANDEEP SABILLON THER 8 [facility] PROPH/DX INC INC 1ST >1 HR 3D 59104 JAYLENE BURRIS, RENDERING 8 MEDICAL YONY P IMAGING W/INTERP& ASSOCIATE [place] [address] RAMANDEEP SABILLON TROPONIN 8 [facility] QUANTITAT INC INC TAYLER BLOOD 54446 RAMANDEEP SABILLON COUNT 8 [facility] COMPLETE INC INC AUTO&AUTO DIFRNTL WBC CREATINE 60124 RAMANDEEP SABILLON KINASE 8 [facility] TOTAL INC INC COMPREHEN 02325 RAMANDEEP SABILLON SIVE 8 [facility] METABOLIC INC INC PANEL CREATINE 90702 RAMANDEEP SABILLON KINASE MB 8 [facility] FRACTION INC INC ONLY DAY CARE S5100 RAMANDEEP SABILLON [address] ADULT; ELDER ELDER PER 15 CARE CARE MINUTES DAY CARE S[address] ADULT; ELDER ELDER PER 15 CARE CARE MINUTES DAY CARE S5100 RAMANDEEP [address] ADULT; ELDER ELDER PER 15 CARE CARE MINUTES DAY CARE S5100 RAMANDEEP [address] ADULT; ELDER ELDER PER 15 CARE CARE MINUTES BLD GLU A4253 M E D M E D TEST/REAG 8 SUPPLIES SUPPLIES T STRIPS HOME BLD GLU SAT-50 DAY CARE S5100 RAMANDEEPSHEREE SABLILON [address] ADULT; ELDER ELDER PER 15 CARE CARE MINUTES DAY CARE S[address] ADULT; ELDER ELDER PER 15 CARE CARE MINUTES TRAPEZE E0940 YOSELYN SCHROEDER 8 HOME MED HOME MED FREESTAND EQUIP. EQUIP. ING [facility] COMPLETE WITH ART SCHROEDER HOS BED E0260 YOSELYN TOPETE SEMI-ELEC 8 HOME MED HOME MED W/ANY EQUIP. EQUIP. TYPE SIDE [facility] RAIL W/MATTRSS DAY CARE S[address] ADULT; ELDER ELDER PER 15 CARE CARE MINUTES DAY CARE S5[address] ADULT; ELDER ELDER PER 15 CARE CARE MINUTES DAY CARE S5[address] ADULT; ELDER ELDER PER 15 CARE CARE MINUTES MEDICAL 49593 DHS/CO RAMANDEEP [address] ASSMT&IVN BANK ACCT TJ INDIV EACH 15 LA DAY CARE S5[address] ADULT; ELDER ELDER PER 15 CARE CARE MINUTES DAY CARE S5[address] ADULT; ELDER ELDER PER 15 CARE CARE MINUTES ADLT SZD T4528 [facility] 8 HOME HOME INCONT HEALTH HEALTH PROD AGENCY AGENCY UNDWEAR XTRA LG EA DAY CARE S[address] ADULT; ELDER ELDER PER 15 CARE CARE MINUTES DAY CARE S5100 [address] ADULT; ELDER ELDER PER 15 CARE CARE MINUTES DAY CARE S5[address] ADULT; ELDER ELDER PER 15 CARE CARE MINUTES DAY CARE S5[address] ADULT; ELDER ELDER PER 15 CARE CARE MINUTES TRAPEZE E0940 YOSELYN SCHROEDER 8 HOME MED HOME MED FREESTAND EQUIP. EQUIP. [facility] COMPLETE WITH GRAB [facility] HOS BED E0260 YOSELYN TOPETE SEMI-ELEC 8 HOME MED HOME MED W/ANY EQUIP. EQUIP. TYPE SIDE [facility] RAIL W/MATTRSS DAY CARE S[address] ADULT; ELDER ELDER PER 15 CARE CARE MINUTES DAY CARE S5[address] ADULT; ELDER ELDER PER 15 CARE CARE MINUTES DAY CARE S5100 [address] ADULT; ELDER ELDER PER 15 CARE CARE MINUTES DAY CARE S5100 [address] ADULT; ELDER ELDER PER 15 CARE CARE MINUTES DAY CARE S5100 [address] ADULT; ELDER ELDER PER 15 CARE CARE MINUTES DAY CARE S5100 [address] ADULT; ELDER ELDER PER 15 CARE CARE MINUTES DAY CARE S5100 [facility] [address] [place] [address] ADULT; ELDER ELDER PER 15 CARE CARE MINUTES INTERMIT A4351 OUMAR SENA 8 [facility] CATH; E CENTERS E CENTERS STRAIGHT TIP W/WO COAT EA DAY CARE S5100 [facility] [address] [place] [address] ADULT; ELDER ELDER PER 15 CARE CARE MINUTES DAY CARE S5100 [facility] [address] [place] [address] ADULT; ELDER ELDER PER 15 CARE CARE MINUTES DAY CARE S5100 [facility] [address] [place] [address] ADULT; ELDER ELDER PER 15 CARE CARE MINUTES DAY CARE S5[address] ADULT; ELDER ELDER PER 15 CARE CARE MINUTES DAY CARE S5[address] ADULT; ELDER ELDER PER 15 CARE CARE MINUTES DAY CARE S5[address] ADULT; ELDER ELDER PER 15 CARE CARE MINUTES DAY CARE S5[address] ADULT; ELDER ELDER PER 15 CARE CARE MINUTES DAY CARE S5[address] ADULT; ELDER ELDER PER 15 CARE CARE MINUTES DAY CARE S5[address] ADULT; ELDER ELDER PER 15 CARE CARE MINUTES DAY CARE S5[address] ADULT; ELDER ELDER PER 15 CARE CARE MINUTES DAY CARE S5[address] ADULT; ELDER ELDER PER 15 CARE CARE MINUTES DAY CARE S5[address] ADULT; ELDER ELDER PER 15 CARE CARE MINUTES TRAPEZE E0940 YOSELYN SCHROEDER 8 HOME MED HOME MED FREESTAND EQUIP. EQUIP. [employer] COMPLETE WITH ART SCHROEDER DAY CARE S5100 [facility] [address] [place] [address] ADULT; ELDER ELDER PER 15 CARE CARE MINUTES DAY CARE S5100 [facility] [address] [place] [address] ADULT; ELDER ELDER PER 15 CARE CARE MINUTES AIR PRESS E0197 YOSELYN MATA 8 HOME MED HOME MED MATTRSS EQUIP. EQUIP. [employer] MATTRSS LENGTH&WI [facility] HOS BED E0260 YOSELYN TOPETE SEMI-ELEC 8 HOME MED HOME MED W/ANY EQUIP. EQUIP. TYPE SIDE [facility] RAIL W/MATTRSS DAY CARE S[address] ADULT; ELDER ELDER PER 15 CARE CARE MINUTES DAY CARE S5[address] ADULT; ELDER ELDER PER 15 CARE CARE MINUTES DAY CARE S5100 [address] ADULT; ELDER ELDER PER 15 CARE CARE MINUTES DAY CARE S5[address] ADULT; ELDER ELDER PER 15 CARE CARE MINUTES DAY CARE S5[address] ADULT; ELDER ELDER PER 15 CARE CARE MINUTES DAY CARE S5[address] ADULT; ELDER ELDER PER 15 CARE CARE MINUTES ADLT SZD T4528 [facility] 8 HOME HOME [facility] HEALTH HEALTH PROD AGENCY AGENCY UNDWEAR XTRA LG EA DAY CARE S[address] ADULT; ELDER ELDER PER 15 CARE CARE MINUTES DAY CARE S5100 [address] ADULT; ELDER ELDER PER 15 CARE CARE MINUTES DAY CARE S5100 [address] ADULT; ELDER ELDER PER 15 CARE CARE MINUTES BLD GLU A4253 M E D M E D TEST/REAG 8 SUPPLIES SUPPLIES T STRIPS HOME BLD GLU 50 DAY CARE S5[address] ADULT; ELDER ELDER PER 15 CARE CARE MINUTES DAY CARE S5100 [address] ADULT; ELDER ELDER PER 15 CARE CARE MINUTES DAY CARE S5100 [address] ADULT; ELDER ELDER PER 15 CARE CARE MINUTES DAY CARE S5100 [address] ADULT; ELDER ELDER PER 15 CARE CARE MINUTES DAY CARE S5100 [address] ADULT; ELDER ELDER PER 15 CARE CARE MINUTES DAY CARE S5[address] ADULT; ELDER ELDER PER 15 CARE CARE MINUTES DAY CARE S5100 [facility] [address] [place] [address] ADULT; ELDER ELDER PER 15 CARE CARE MINUTES DAY CARE S5100 RAMANDEEP [facility] [address] [place] [address] ADULT; ELDER ELDER PER 15 CARE CARE MINUTES DAY CARE S5100 RAMANDEEP RAMANDEEP SERVICES [address] [place] [address] ADULT; ELDER ELDER PER 15 CARE CARE MINUTES DAY CARE S5100 RAMANDEEP [employer] [address] [place] [address] ADULT; ELDER ELDER PER 15 CARE CARE MINUTES INTERMIT A4351 OUMAR SENA [address] [facility] CATH; E CENTERS E CENTERS STRAIGHT TIP W/WO COAT EA DAY CARE S5100 RAMANDEEP RAMANDEEP SERVICES [address] [place] [address] ADULT; ELDER ELDER PER 15 CARE CARE MINUTES DAY CARE S5100 RAMANDEEP RAMANDEEP SERVICES [address] [place] [address] ADULT; ELDER ELDER PER 15 CARE CARE MINUTES DAY CARE S5100 RAMANDEEP RAMANDEEP [address] ADULT; ELDER ELDER PER 15 CARE CARE MINUTES DAY CARE S5100 RAMANDEEP [employer] [address] [place] [address] ADULT; ELDER ELDER PER 15 CARE CARE MINUTES ADLT SZD T4528 [facility] 8 HOME HOME [facility] PROD AGENCY AGENCY UNDWEAR XTRA LG EA DAY CARE S5100 RAMANDEEP RAMANDEEP [address] ADULT; ELDER ELDER PER 15 CARE CARE MINUTES DAY CARE S5100 RAMANDEEP [employer] [address] [place] [address] ADULT; ELDER ELDER PER 15 CARE CARE MINUTES DAY CARE S5100 RAMANDEEP [employer] [address] [place] [address] ADULT; ELDER ELDER PER 15 CARE CARE MINUTES DAY CARE S5100 RAMANDEEP [facility] [address] [place] [address] ADULT; ELDER ELDER PER 15 CARE CARE MINUTES DAY CARE S5100 RAMANDEEP [facility] [address] [place] [address] ADULT; ELDER ELDER PER 15 CARE CARE MINUTES DAY CARE S5100 RAMANDEEP [facility] [address] [place] [address] ADULT; ELDER ELDER PER 15 CARE CARE MINUTES DAY CARE S5100 RAMANDEEP [facility] [address] [place] [address] ADULT; ELDER ELDER PER 15 CARE CARE MINUTES DAY CARE S5100 RAMANDEEP [employer] [address] [place] [address] ADULT; ELDER ELDER PER 15 CARE CARE MINUTES DAY CARE S5[address] ADULT; ELDER ELDER PER 15 CARE CARE MINUTES DAY CARE S5100 RAMANDEEP RAMANDEEP SERVICES [address] [place] [address] ADULT; ELDER ELDER PER 15 CARE CARE MINUTES DAY CARE S5100 [facility] [address] [place] [address] ADULT; ELDER ELDER PER 15 CARE CARE MINUTES DAY CARE S5100 RAMANDEEP RAMANDEEP [address] ADULT; ELDER ELDER PER 15 CARE CARE MINUTES DAY CARE S[address] ADULT; ELDER ELDER PER 15 CARE CARE MINUTES DAY CARE S5[address] ADULT; ELDER ELDER PER 15 CARE CARE MINUTES DAY CARE S[address] ADULT; ELDER ELDER PER 15 CARE CARE MINUTES DAY CARE S5[address] ADULT; ELDER ELDER PER 15 CARE CARE MINUTES DAY CARE S5[address] ADULT; ELDER ELDER PER 15 CARE CARE MINUTES DAY CARE S5[address] ADULT; ELDER ELDER PER 15 CARE CARE MINUTES DAY CARE S[address] ADULT; ELDER ELDER PER 15 CARE CARE MINUTES INCONTINE T4541 [facility] 8 HOME HOME [facility] DISPOSABL AGENCY AGENCY E UNDPAD LARGE EA ADLT SZD T4528 [facility] 8 HOME HOME INCONT HEALTH HEALTH PROD AGENCY AGENCY UNDWEAR XTRA LG EA DAY CARE S[address] ADULT; ELDER ELDER PER 15 CARE CARE MINUTES DAY CARE S5[address] ADULT; ELDER ELDER PER 15 CARE CARE MINUTES Encounters Encounter Start End Date Code Location Performer Type Date HOME [facility] 0 0 HOME OUTPATIEN HEALTH T [facility] RAMANDEEP - 0 0 [facility]EN [facility] T HOME [facility], 0 0 DIST OTHER HEALTH 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 [facility], 0 0 DIST OTHER HEALTH 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 [facility], 0 0 HOME OUTPATIEN HEALTH T AGENCY [facility], 0 0 DIST OTHER HEALTH 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 87860 CHASE GALARZAPATIEN 9 9 LEANDRA Hernandez T VISIT PSC 15 MINUTES OFFICE 67246 CHASE MCGREGORPATIJOSE FRANCISCO 9 9 LEANDRA PETIT T VISIT 5 PSC MINUTES HOME [facility], 9 9 DIST OTHER HEALTH 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 [facility], 9 9 HOME OUTPATIEN HEALTH T AGENCY OFFICE 68212 TERRY RUIZ 9 9 [facility] T VISIT SERV 15 FOUNDATIO MINUTES HOME [facility], 9 9 DIST OTHER HEALTH 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 [facility], 9 9 HOME OUTPATIEN HEALTH T [facility] RAMANDEEP - 9 9 [facility] OUTPATIEN INC T HOME [facility], 9 9 DIST OTHER HEALTH 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 77351 TIM SCHULTE, CONSULTBERTRAND 9 9 MEDICAL NILDA ION SERV NEW/ESTAB FOUNDATIO PATIENT 60 MIN HOME [facility], 9 9 DIST OTHER HEALTH 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 68195 Mary HANDYPATIEN 9 9 LEANDRA Rhodes VISIT PSC 15 MINUTES OFFICE 76929 Mary HANDYPATIEN 9 9 LEANDRA Messer T VISIT PSC 15 MINUTES HOME [facility], 9 9 DIST OTHER HEALTH 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 [facility], 9 9 HOME OUTPATIEN HEALTH T [facility] RAMANDEEP - 9 9 [facility] OUTPATIEN INC T HOME [facility], 9 9 DIST OTHER HEALTH 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 [facility], 9 9 DIST OTHER HEALTH 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 [facility], 9 9 HOME OUTPATIEN HEALTH T AGENCY OFFICE 09895 Mary MANLEY OUTPATIEN 9 9 LEANDRA Hernandez T VISIT PSC 15 MINUTES HOME [facility], 9 9 DIST OTHER HEALTH 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 73037 Mary ALMANZAR OUTPATIEN 9 9 LEANDRA PETIT T VISIT 5 PSC MINUTES OFFICE 34788 Mary MANLEY OUTPATIEN 9 9 LEANDRA Hernandez T VISIT PSC 15 MINUTES HOME [facility], 9 9 DIST OTHER HEALTH 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 [facility], 9 9 HOME OUTPATIEN HEALTH T AGENCY OFFICE 34856 DHS/CO RAMANDEEP OUTPATIEN 9 9 HEALTH CO HEALTH T V[facility]IT [facility] 15 BANK ACCT MINUTES HOME [facility], 9 9 DIST OTHER HEALTH 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 [facility], 9 9 DIST OTHER HEALTH 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 30997 Mary HANDY OUTPATIEN 9 9 LEANDRA Rhodes VISIT PSC 15 MINUTES HOME [facility], 9 9 HOME OUTPATIEN HEALTH T AGENCY [facility] 9 9 DIST OTHER HEALTH 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 17671 Mary HANDY OUTPATIEN 9 9 LEANDRA Rhodes VISIT 5 PSC MINUTES HOME [facility], 9 9 HOME OUTPATIEN HEALTH T AGENCY [facility], 9 9 DIST OTHER HEALTH 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 33558 Mary HANDY OUTPATIEN 9 9 MOBLEY MD C T VISIT 5 PSC MINUTES HOME [facility], 9 9 DIST OTHER HEALTH 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 [facility], 9 9 HOME OUTPATIEN HEALTH T AGENCY OFFICE 38357 Mary HANDY OUTPATIEN 9 9 LEANDRA Messer T VISIT 5 PSC MINUTES OFFICE 75957 Mary HANDY OUTPATIEN 9 9 LEANDRA Messer T VISIT PSC 15 MINUTES HOME [facility], 9 9 DIST OTHER HEALTH 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 44611 Mary HANDY OUTPATIEN 9 9 LEANDRA Messer T VISIT 5 PSC MINUTES HOME [facility], 9 9 DIST OTHER HEALTH 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 [facility], 9 9 HOME OUTPATIEN HEALTH T AGENCY [facility], 8 8 DIST OTHER HEALTH 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 06061 Mary HANDY OUTPATIEN 8 8 LEANDRA Rhodes VISIT 5 PSC MINUTES HOME [facility], 8 8 DIST OTHER HEALTH 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 [facility], 8 8 DIST OTHER HEALTH 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 [facility], 8 8 HOME OUTPATIEN HEALTH T AGENCY OFFICE 00424 Mary HANDY OUTPATIEN 8 8 LEANDRA Rhodes VISIT PSC 15 MINUTES EMERGENCY 59410 RAMANDEEP 8 8 [facility] DEPARTMEN INC T VISIT HIGH/URGE NT SEVERITY EMERGENCY 21841 JEEVAN ORTIZ, 8 8 [facility] DEPARTMEN CORPORATI O T VISIT ON MODERATE SEVERITY HOSPITAL RAMANDEEP - 8 8 [facility] OUTPATIEN INC T HOME [facility], 8 8 DIST OTHER HEALTH 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 74594 Mary HANDY OUTPATIEN 8 8 LEANDRA WHITESIDE C T VISIT [facility] 15 MINUTES HOME [facility], 8 8 DIST OTHER HEALTH 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
--- OUTSIDE RECORDS SUMMARY | 2016-12-16 17:32 | External Medical Summary Rpt ---
Demographics Preferred Language Polish Marital Status Unknown Sabianist Affiliation Unknown Race Unknown Ethnic Group Unknown Author Author , Organization [employer] Address Unknown Phone Unavailable Purpose Continuity of Care Document - through 2016 Immunization No patient found.
--- OUTSIDE RECORDS SUMMARY | 2016-12-16 17:32 | External Medical Summary Rpt ---
Author Author DARON Peter, [employer] Organization [employer] Address Unknown Phone Unavailable
--- OUTSIDE RECORDS SUMMARY | 2016-12-16 17:32 | External Medical Summary Rpt ---
Demographics Preferred Language Thai Marital Status Unknown Spiritism Affiliation Unknown Race Unknown Ethnic Group Unknown Author Author , Organization [employer] Address Unknown Phone Unavailable Purpose Continuity of Care Document - through 2016 Immunization No patient found.
--- OUTSIDE RECORDS SUMMARY | 2016-12-16 18:27 | External Medical Summary Rpt ---
Author Author , Organization [employer] Address Unknown Phone Unavailable Care Team Providers Care Die Cutter Name Role Phone ALBA STODDARD, Unavailable Unavailable ALBA STODDARD ANTONIO, Unavailable Unavailable [facility] Unavailable Unavailable SERVICE, [facility] Unavailable Unavailable CENTERS, [facility] Un[facility] Unavailable INC, [facility] Unavailable Unavailable CENTER, [facility] Unavailable Unavailable CARE, [facility] Unavailable Unavailable INC, [facility] KIT RICHTER, Unavailable Unavailable KIT RICHTER [facility] Unavailable Unavailable [facility], [facility] Unavailable Unavailable HOLDING, [facility] M E D SUPPLIES, M E D Unavailable Unavailable SUPPLIES YONY BURRIS, Unavailable Unavailable YONY BURRIS STEPHEN A, Unavailable Unavailable ALBA MANLEY MARC D, Unavailable Unavailable FLAKITA LEAL [facility] Unavailable Unavailable ASSOCIATES,[facility], [facility] DAMASO ALMANZAR, Unavailable Unavailable DAMASO ALMANZAR BABATUNDE O, Unavailable Unavailable BARNEY ORTIZ [facility] Unavailable Unavailable [facility], [facility] Unavailable Unavailable DEPT MONOTYPE CASTER, [facility] DEPT MONOTYPE CASTER COUNTS INCLUDE 234 BEDS AT THE [facility] Unavailable Unavailable AGENCY, [facility] Taurus Vázquez Unavailable Unavailable III , Taurus Vázquez III Mary MATIAS, LEANDRA, Unavailable Unavailable A C Purpose Continuity of Care Document - 08-20-2007 through 2016 Problems Code Diagnosis DOS Provider Status 250.00 250.00 DIAB 01-31-2013 [facility] Hospital II OR UNSPEC TYPE, NOT UNCNTRLD 401.9 401.9 06-15-2013 Ramandeep HYPERTENSIO [facility] N NOS Hospital 729.81 729.81 01-31-2013 Ramandeep SWELLING OF [facility] LIMB Hospital 780.39 780.39 01-31-2013 Ramandeep OTHER [facility] CONVULSIONS Hospital V12.54 V12.54 01-31-2013 Ramandeep PERSONAL HX [facility] OF TIA,& Hospital CEREBRAL INFARCTION W/OUT RES DEFICITS V58.61 V58.61 01-31-2013 Ramandeep ANTICOAGULA [facility] NTS,LT,[facility] ENT USE V58.69 V58.69 OTH 01-31-2013 Ramandeep MED,LT,[facility] ENT USE Hospital 09107 DIAB W/O 11-11-2009 M E D MENTION SUPPLIES COMP TYPE II/UNS TYPE UNCNTRL 81350 UNSPECIFIED 11-10-2009 [facility] INCONTINENC CENTERS E 4389 UNSPEC LATE 11-07-2009 [facility] EFF HEALTH CEREBRVASC AGENCY DZ DUE CEREBRVASC DZ 7197 DIFFICULTY 11-07-2009 [facility] IN WALKING HEALTH AGENCY 77245 OTHER 11-07-2009 [facility] MALAISE AND HEALTH FATIGUE AGENCY 437 OTHER 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[facility] CEREBROVASC ULAR DISEASE 5950 ACUTE 10-24-2009 [facility]STITIS [facility] 98933 INCOMPLETE 10-24-2009 [facility] BLADDER [facility] EMPTYING INC 4019 UNSPECIFIED 10-17-2009 [facility] HYPERTENSIO MONOTYPE CASTER N 496 CHRONIC 10-17-2009 [facility] OBSTRUCTION MONOTYPE CASTER NEC 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MEL, OSIS OF FLAKITA Penaloza NAIL 7295 PAIN IN 10-07-2009 MEL, SOFT FLAKITA Penaloza TISSUES OF LIMB 81668 DIAB W/O 08-02-2009 [facility] COMP TYPE AMERIC II/UNS NOT HOLDING STATED UNCNTRL 61710 OTH FORM 08-02-2009 [facility] EPILEPSY & AMERIC RECUR HOLDING SEIZUR NO INTRACT EPIL 4011 ESSENTIAL 08-02-2009 [facility] HYPERTENSIO AMERIC N, BENIGN HOLDING 4659 ACUTE URIS 08-02-2009 Mary COATS PSC UNSPECIFIED SITE V5861 LONG-TERM 08-02-2009 Mary MOBLEY (CURRENT) PSC USE OF ANTICOAGULA NTS 5990 URINARY 08-01-2009 [facility] TRACT AMERIC INFECTION HOLDING SITE NOT SPECIFIED 30302 UNSPECIFIED 06-29-2009 [facility] N V0481 NEED 06-01-2009 [facility] CO [facility]I [facility] CENTER VACCINATION &INOCULATIO N FLU 2724 OTHER AND 05-26-2009 [facility] UNSPECIFIED [facility] INC HYPERLIPIDE ROXANNA 18733 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 436 ACUTE BUT 12-03-2008 [facility] ILL-DEFINED [facility] CEREBROVASC ULAR DISEASE 05259 OTHER 11-24-2008 Mary MOBLEY CONVULSIONS PSC E9479 UNSPEC 11-24-2008 [facility] RX/MEDICINA AMERIC L SBST[place] [address] MALIG HTN 10-08-2008 [facility], [facility] FAIL 4589 UNSPECIFIED 10-08-2008 [facility] 4660 ACUTE 10-08-2008 [facility]OST[facility]& BRONCHITIS [facility], [facility] 3320 PARALYSIS 10-01-2008 [facility] AGITANS HEALTH AGENCY 5964 ATONY OF 10-01-2008 [facility] BLADDER [facility]ALTH AGENCY V5789 OTHER 10-01-2008 [facility] SPECIFIED HEALTH REHABILITAT AGENCY ION PROCEDURE OTHER 64022 UNSPECIFIED 07-13-2008 [facility] URINE CENTERS 7802 SYNCOPE AND 02-24-2008 Mary MOBLEY COLLAPSE PSC 7804 DIZZINESS 02-23-2008 [facility] GIDDINESS SERVICE V653 DIETARY 01-21-2008 [facility] SURVEILLANC HEALTH E AND [facility]AL COUNSELING BANK ACCT V7791 SCREENING 11-06-2007 [facility] FOR LIPOID HEALTH DISORDERS CENTRAL BANK ACCT 7806 FEVER & OTH 09-02-2007 [facility] DISTURBANCE S TEMP [...] Given on t er Refuse d IIV3 [place] No VACCIN 2008 [facility] 0.5 ML DOSAGE IM USE IIV3 [place] No VACCIN 2008 [facility] 0.5 ML DOSAGE IM USE IIV3 [place] No VACCIN 2007 ON [facility] E HEALTH [...] DAY CARE S5100 [facility] SERVICES 0 [facility] ADULT; ELDER ELDER PER 15 CARE CARE MINUTES DAY CARE S5100 [facility] 0 [facility] ADULT; ELDER ELDER PER 15 CARE CARE MINUTES DAY CARE S5100 [facility] SERVICES 0 [facility] ADULT; ELDER ELDER PER 15 CARE CARE MINUTES BLD GLU A4253 M E D M E D TEST/REAG 0 SUPPLIES SUPPLIES T STRIPS HOME BLD GLU MON-50 LANCETS A4259 M E D M E D PER BOX 0 SUPPLIES SUPPLIES OF 100 INTERMIT A4351 [facility] URIN 0 [facility] CATH; E CENTERS E CENTERS STRAIGHT TIP W/WO COAT EA DAY CARE S5100 [facility] 0 [facility] ADULT; ELDER ELDER PER 15 CARE CARE MINUTES DAY CARE S5100 [facility] 0 [facility] ADULT; ELDER ELDER PER 15 CARE CARE MINUTES DAY CARE S5100 [facility] 0 [facility] ADULT; ELDER ELDER PER 15 CARE CARE MINUTES ADLT SZD T4528 [facility] HOME INCONT HEALTH HEALTH PROD AGENCY AGENCY UNDWEAR XTRA LG EA INCONTINE T4541 [facility] NCE 0 HOME HOME PRODUCT HEALTH HEALTH DISPOSABL AGENCY AGENCY E UNDPAD LARGE EA DAY CARE S5100 [facility] 0 [facility] ADULT; ELDER ELDER PER 15 CARE CARE MINUTES DAY CARE S5100 [facility] 0 [facility] ADULT; ELDER ELDER PER 15 CARE CARE MINUTES DAY CARE S5100 [facility] SERVICES 0 [facility] ADULT; ELDER ELDER PER 15 CARE CARE MINUTES DAY CARE S5100 [facility] SERVICES 0 [facility] ADULT; ELDER ELDER PER 15 CARE CARE MINUTES DAY CARE S5100 [facility] SERVICES 0 [facility] ADULT; ELDER ELDER PER 15 CARE CARE MINUTES [facility] 28741 RAM[facility] SAB[facility] LTY STDY 0 [facility] ANTIMICRB INC INC IAL MICRO/AGA R DILUTJ CULTURE 54628 [facility] BACTERIAL 0 [facility] INC INC QUANTTATI VE COLONY COUNT URINE CULTURE 01712 [facility] BCT 0 [facility] ISOL&PRSM INC INC PTV ID ISOLATE EA URINE DAY CARE S5100 [facility] SERVICES 0 [facility] ADULT; ELDER ELDER PER 15 CARE CARE MINUTES DAY CARE S5100 [facility] 0 [facility] ADULT; ELDER ELDER PER 15 CARE CARE MINUTES DAY CARE S5100 [facility] SERVICES 0 [facility] ADULT; ELDER ELDER PER 15 CARE CARE MINUTES DAY CARE S5100 RAMAN[facility]EP RAMANDEEP SERVICES 0 [facility] ADULT; ELDER ELDER PER 15 CARE CARE MINUTES DAY CARE S5100 [facility] SERVICES 0 [facility] ADULT; ELDER ELDER PER 15 CARE CARE MINUTES DAY CARE S5100 [facility]ANDEEPSHEREE SABILLON SERVICES 0 [facility] ADULT; ELDER ELDER PER 15 CARE CARE MINUTES DAY CARE S5100 RAMANDEEPSHEREE SABILLON SERVICES 0 [facility] ADULT; ELDER ELDER PER 15 CARE CARE MINUTES DAY CARE S5100 [facility]EP RAM[facility]DEEP SERVICES 0 [facility] ADULT; ELDER ELDER PER 15 CARE CARE MINUTES INTERMIT A4351 [facility] SENA 0 [facility] CATH; E CENTERS E CENTERS STRAIGHT TIP W/WO COAT DAY CARE S5100 [facility] SERVICES 0 [facility] ADULT; ELDER ELDER PER 15 CARE CARE MINUTES DAY CARE S5100 RAM[facility]EP RAM[facility]DEEP SERVICES 0 [facility] ADULT; ELDER ELDER PER 15 CARE CARE MINUTES DAY CARE S5100 RAMANDEEP RAM[facility]DEEP SERVICES 0 [facility] ADULT; ELDER ELDER PER 15 CARE CARE MINUTES DAY CARE S5100 RAMAN[facility]EP RAM[facility]EP SERVICES 0 [facility] ADULT; ELDER ELDER PER 15 CARE CARE MINUTES DAY CARE S5100 RAMANDEEP RAMANDEEP SERVICES 0 [facility] ADULT; ELDER ELDER PER 15 CARE CARE MINUTES DAY CARE S5100 RAMANDEEP RAMANDEEP SERVICES 0 [facility] ADULT; ELDER ELDER PER 15 CARE CARE MINUTES ADLT SZD T4528 [facility] HOME HOME INCONT HEALTH HEALTH PROD AGENCY AGENCY UNDWEAR XTRA LG EA DAY CARE S[address] ADULT; ELDER ELDER PER 15 CARE CARE MINUTES DAY CARE S[address] ADULT; ELDER ELDER PER 15 CARE CARE MINUTES DAY CARE S[address] ADULT; ELDER ELDER PER 15 CARE CARE MINUTES DAY CARE S[address] ADULT; ELDER ELDER PER 15 CARE CARE MINUTES DAY CARE S[address] ADULT; ELDER ELDER PER 15 CARE CARE MINUTES DAY CARE S[address] ADULT; ELDER ELDER PER 15 CARE CARE MINUTES INJ J0702 Mary MANLEY BETAMETHA 9 LEANDRA Hernandez SONE PSC ACETATE & PHOSPHATE 3 MG COLLECTIO 92947 Mary MANLEY N VENOUS 9 LEANDRA Hernandez BLOOD PSC VENIPUNCT URE IM ADM 19718 Mary MANLEY PRQ ID 9 LEANDRA Hernandez SUBQ/IM PSC NJXS 1 VACCINE BASIC 04833 [facility] METABOLIC 9 AMERIC AMERIC PANEL HOLDING HOLDING CALCIUM TOTAL GLUCOSE 93544 Mary MANLEY QUANTITAT 9 LEANDRA Hernandez TAYLER BLOOD PSC XCPT REAGENT STRIP HEMOGLOBI 54171 Mary MANLEY N 9 LEANDRA Hernandez GLYCOSYLA PSC SUSAN A1C PROTHROMB 81797 Mary MANLEY IN TIME 9 LEANDRA Hernandez PSC DRUG 20256 [facility] ASSAY 9 AMERIC AMERIC VALPROIC HOLDING HOLDING DIPROPYLA CETIC ACID TOTAL SUSCEPTIB 58321 [facility] LTY STDY 9 AMERIC AMERIC ANTIMICRB HOLDING HOLDING IAL MICRO/AGA R DILUTJ URINLS 61536 PHYLICIA MCGREGOR 9 LEANDRA WHITESIDE DAMASO STICK/TAB PSC LET REAGNT NON-AUTO MICRSCPY DAY CARE S[address] ADULT; ELDER ELDER PER 15 CARE CARE MINUTES CUL BACT 78796 [facility] AEROBIC 9 AMERIC AMERIC ADDL HOLDING HOLDING METHS DEFINITIV E EA ISOL CULTURE 19292 [facility] BACTERIAL 9 AMERIC AMERIC HOLDING HOLDING QUANTTATI VE COLONY COUNT URINE CULTURE 33562 [facility] BCT 9 AMERIC AMERIC ISOL&PRSM HOLDING HOLDING PTV ID ISOLATE EA URINE DAY CARE S[address] ADULT; ELDER ELDER PER 15 CARE CARE MINUTES DAY CARE S[address] ADULT; ELDER ELDER PER 15 CARE CARE MINUTES DAY CARE S[address] ADULT; ELDER ELDER PER 15 CARE CARE MINUTES DAY CARE S[address] ADULT; ELDER ELDER PER 15 CARE CARE MINUTES ADLT SZD T4528 [facility] 9 HOME HOME INCONT HEALTH HEALTH PROD AGENCY AGENCY UNDWEAR XTRA LG EA DEBRIDEME 35483 PAWSAT, PAWSAT, NT NAIL 9 FLAKITA Penaloza ANY METHOD 6/> DAY CARE S[address] ADULT; ELDER ELDER PER 15 CARE CARE MINUTES DAY CARE S[address] ADULT; ELDER ELDER PER 15 CARE CARE MINUTES INTERMIT A4351 [facility] SENA 9 [facility] CATH; E CENTERS E CENTERS STRAIGHT TIP W/WO COAT EA DAY CARE S[address] ADULT; ELDER ELDER PER 15 CARE CARE MINUTES DAY CARE S[address] ADULT; ELDER ELDER PER 15 CARE CARE MINUTES DAY CARE S[address] ADULT; ELDER ELDER PER 15 CARE CARE MINUTES DAY CARE S[address] ADULT; ELDER ELDER PER 15 CARE CARE MINUTES DAY CARE S[address] ADULT; ELDER ELDER PER 15 CARE CARE MINUTES DAY CARE S[address] ADULT; ELDER ELDER PER 15 CARE CARE MINUTES DAY CARE S[address] ADULT; ELDER ELDER PER 15 CARE CARE MINUTES DAY CARE S5100 [facility] SERVICES 9 [facility] ADULT; ELDER ELDER PER 15 CARE CARE MINUTES DAY CARE S5100 [facility] SERVICES 9 [facility] ADULT; ELDER ELDER PER 15 CARE CARE MINUTES DAY CARE S5100 [facility] SERVICES 9 [facility] ADULT; ELDER ELDER PER 15 CARE CARE MINUTES DAY CARE S5100 RAMANDEEP SABILLON [facility] 9 [facility] ADULT; ELDER ELDER PER 15 CARE CARE MINUTES DAY CARE S5100 RAMANDEEP SABILLON [address] ADULT; ELDER ELDER PER 15 CARE CARE MINUTES DAY CARE S5100 RAM[facility]EP [facility] SERVICES 9 [facility] ADULT; ELDER ELDER PER 15 CARE CARE MINUTES DAY CARE S5100 RAMANDEEP SABILLON [facility] 9 [facility] ADULT; ELDER ELDER PER 15 CARE CARE MINUTES INCONTINE T4541 [facility] NCE 9 HOME HOME PRODUCT HEALTH HEALTH DISPOSABL AGENCY AGENCY E UNDPAD LARGE EA DAY CARE S5100 RAMANDEEP SABILLON [facility] 9 [facility] ADULT; ELDER ELDER PER 15 CARE CARE MINUTES DAY CARE S5100 RAMANDEEP SABILLON [facility] 9 [facility] ADULT; ELDER ELDER PER 15 CARE CARE MINUTES IIV3 [id number] [facility] S[facility] VACCINE 9 [facility] SPL[facility] CENTER CENTER VIRUS 0.5 ML DOSAGE IM USE ADMINISTR G0008 RAMANDEEP SABILLON ATION OF 9 Exacter HEALTH INFLUENZA CENTER CENTER VIRUS VACCINE ADLT SZD T4528 [facility] 9 HOME HOME INCONT HEALTH HEALTH PROD AGENCY AGENCY UNDWEAR XTRA LG EA DAY CARE S5100 RAMANDEEP SABILLON [facility] 9 [facility] ADULT; ELDER ELDER PER 15 CARE CARE MINUTES BASIC 10319 RAM[facility]EP S[facility] METABOLIC 9 [facility] PANEL INC INC CALCIUM TOTAL DAY CARE S5100 [facility] SERVICES 9 [facility] ADULT; ELDER ELDER PER [address] [place] [address] [facility] S[facility] THYROID 9 [facility] STIMULATI INC INC NG HORMONE TSH COLLECTIO 54897 [facility] S[facility] N VENOUS 9 [facility] BLOOD INC INC VENIPUNCT URE INTERMIT A4351 [facility]; E CENTERS E CENTERS STRAIGHT TIP W/WO COAT EA DAY CARE S[address] ADULT; ELDER ELDER PER 15 CARE CARE MINUTES DAY CARE S[address] ADULT; ELDER ELDER PER 15 CARE CARE MINUTES DAY CARE S[address] ADULT; ELDER ELDER PER 15 CARE CARE MINUTES DAY CARE S[address] ADULT; ELDER ELDER PER 15 CARE CARE MINUTES DAY CARE S[address] ADULT; ELDER ELDER PER 15 CARE CARE MINUTES DAY CARE S[address] ADULT; ELDER ELDER PER 15 CARE CARE MINUTES DAY CARE S[address] ADULT; ELDER ELDER PER 15 CARE CARE MINUTES DAY CARE S[address] ADULT; ELDER ELDER PER 15 CARE CARE MINUTES IIV3 [id number] RAM[facility]DEEP S[facility] VACCINE 9 [facility] SPLIT [place] CENTER VIRUS 0.5 ML DOSAGE IM USE SPRING- A4258 M E D M E D WERED 9 SUPPLIES SUPPLIES DEVICE FOR LANCET EACH REPL CRUZ A4235 M E D M E D LITHIUM 9 SUPPLIES SUPPLIES MED NECES SHERYL BG MON OWN PT EA LANCETS A4259 M E D M E D PER BOX 9 SUPPLIES SUPPLIES OF 100 NORMAL A4256 M E D M E D LOW AND 9 SUPPLIES SUPPLIES HIGH CALIBRATO R SOLUTION/ CHIPS BLD GLU A4253 M E D M E D TEST/REAG 9 SUPPLIES SUPPLIES T STRIPS HOME BLD GLU MON-50 ADMINISTR G0008 RAMANDEEP SABILL[facility] ATION OF 9 [facility] INFLUENZA CENTER CENTER VIRUS VACCINE DAY CARE S[address] ADULT; ELDER ELDER PER 15 CARE CARE MINUTES DAY CARE S[address] ADULT; ELDER ELDER PER 15 CARE CARE MINUTES DAY CARE S[address] ADULT; ELDER ELDER PER 15 CARE CARE MINUTES DAY CARE S5100 [place] [address] [place] ADULT; ELDER ELDER PER 15 CARE CARE MINUTES DAY CARE S5[address] ADULT; ELDER ELDER PER 15 CARE CARE MINUTES DAY CARE S[address] ADULT; ELDER ELDER PER 15 CARE CARE MINUTES DAY CARE S[address] ADULT; ELDER ELDER PER 15 CARE CARE MINUTES DAY CARE S[address] ADULT; ELDER ELDER PER 15 CARE CARE MINUTES DAY CARE S[address] ADULT; ELDER ELDER PER 15 CARE CARE MINUTES DAY CARE S[address] ADULT; ELDER ELDER PER 15 CARE CARE MINUTES INTERMIT A4351 [facility] SENA 9 [facility] CATH; E CENTERS E CENTERS STRAIGHT TIP W/WO COAT EA DAY CARE S5100 RAM[facility] [address] ADULT; ELDER ELDER PER 15 CARE CARE MINUTES DAY CARE S[address] ADULT; ELDER ELDER PER 15 CARE CARE MINUTES DAY CARE S[address] ADULT; ELDER ELDER PER 15 CARE CARE MINUTES DAY CARE S[address] ADULT; ELDER ELDER PER 15 CARE CARE MINUTES [facility] S5100 [facility] [address] ADULT; ELDER ELDER PER 15 CARE CARE MINUTES ADLT SZD T4528 [facility] 9 HOME HOME [facility] HEALTH HEALTH PROD AGENCY AGENCY UNDWEAR XTRA LG EA DAY CARE S5100 RAMANDEEP RAMANDEEP [employer] [address] [place] [address] ADULT; ELDER ELDER PER 15 CARE CARE MINUTES DAY CARE S[address] ADULT; ELDER ELDER PER 15 CARE CARE MINUTES DAY CARE S[address] ADULT; ELDER ELDER PER 15 CARE CARE MINUTES OPHTH 53368 ROBER, ROBER, MEDICAL 9 KIT A KIT A XM&JOELLE COMPRHNSV ESTAB PT 1/> DAY CARE S5100 RAMANDEEP SABILLON [address] ADULT; ELDER ELDER PER 15 CARE CARE MINUTES DAY CARE S5100 RAMANDEEP SABILLON [address] ADULT; ELDER ELDER PER 15 CARE CARE MINUTES DAY CARE S5100 RAMANDEEP SABILLON [address] ADULT; ELDER ELDER PER 15 CARE CARE MINUTES DAY CARE S5100 RAMANDEEP SABILLON [address] ADULT; ELDER ELDER PER 15 CARE CARE MINUTES DAY CARE S5100 RAMAN[facility]EP SABILL[facility] [address] ADULT; ELDER ELDER PER 15 CARE CARE MINUTES BASIC 64582 RAM[facility]EP S[facility] METABOLIC 9 [facility] PANEL INC INC CALCIUM TOTAL COLLECTIO 95668 RAM[facility]EP SABILLON N VENOUS 9 [facility] [place] [address] RAM[facility]EP S[facility] RETROPERI 9 [facility] TONEAL INC INC REAL TIME W/IMAGE COMPLETE DAY CARE S5100 RAMANDEEP SABILLON [address] ADULT; ELDER ELDER PER 15 CARE CARE MINUTES DAY CARE S5100 RAMANDEEP SABILLON [address] ADULT; ELDER ELDER PER 15 CARE CARE MINUTES DAY CARE S5100 RAMANDEEP RAMANDEEP [address] ADULT; ELDER ELDER PER 15 CARE CARE MINUTES DAY CARE S5100 RAMANDEEP SABILLON [address] ADULT; ELDER ELDER PER 15 CARE CARE MINUTES DAY CARE S5100 RAMANDEEPSHEREE SABILLON [address] ADULT; ELDER ELDER PER 15 CARE CARE MINUTES DAY CARE S5100 RAMANDEEP SABILLON [address] ADULT; ELDER ELDER PER 15 CARE CARE MINUTES DAY CARE S5100 RAMANDEEPSHEREE SABILLON [address] ADULT; ELDER ELDER PER 15 CARE CARE MINUTES DAY CARE S5100 RAMANDEEPSHEREE SABILLON [address] ADULT; ELDER ELDER PER 15 CARE CARE MINUTES DAY CARE S5100 RAMANDEEP RAMANDEEP [address] ADULT; ELDER ELDER PER 15 CARE CARE MINUTES DAY CARE S5100 RAMANDEEP RAMNADEEP [address] ADULT; ELDER ELDER PER 15 CARE CARE MINUTES DAY CARE S5100 RAMANDEEPSHEREE SABILLON [address] ADULT; ELDER ELDER PER 15 CARE CARE MINUTES DIAB ONLY A5500 [facility] CENTRAL FIT CSTM 9 [facility] BRACE PREP&SPL PROSTH PROSTH SHOE MX INC INC DNSITY INSRT ADD LW [id number] [facility] EXT 9 BRACE BRACE VARUS/TARI PROSTH PROSTH ROBERTA WILMER INC INC STRAP PAD/LINE PAD TRANS L3620 [place] [facility] ORTHOS 1 9 BRACE BRACE SHOE-ANOT PROSTH PROSTH HER SLD INC INC STIRRUP EXISTING REPAIR L4205 [facility] ORTHOTIC 9 BRACE BRACE DEVC PROSTH PROSTH LABOR INC INC COMPONENT PER 15 MIN DAY CARE [id number] ADULT; ELDER ELDER PER 15 CARE CARE MINUTES DAY CARE [id number] [address] ADULT; ELDER ELDER PER 15 CARE CARE MINUTES DAY CARE [id number] [address] ADULT; ELDER ELDER PER 15 CARE CARE MINUTES DAY CARE [id number] [address] ADULT; ELDER ELDER PER 15 CARE CARE MINUTES DAY CARE [id number] ADULT; ELDER ELDER PER 15 CARE CARE MINUTES ADLT SZD [id number] [facility] HOME [facility] PROD AGENCY AGENCY UNDWEAR XTRA LG EA DAY CARE [id number] ADULT; ELDER ELDER PER 15 CARE CARE MINUTES INTERMIT [id number] OUMAR OUMAR URIN 9 [employer] [facility] CATH; E CENTERS E CENTERS STRAIGHT TIP W/WO COAT EA URINLS 33055 A C SINDHU, DIP 9 LEANDRA Hernandez STICK/TAB PSC LET REAGNT NON-AUTO MICRSCPY CULTURE 21754 [facility] BACTERIAL 9 [employer] QUANTTATI VE COLONY COUNT URINE DAY CARE [id number] ADULT; ELDER ELDER PER 15 CARE CARE MINUTES DAY CARE [id number] [address] ADULT; ELDER ELDER PER 15 CARE CARE MINUTES DAY CARE [id number] [address] ADULT; ELDER ELDER PER 15 CARE CARE MINUTES DAY CARE [id number] [address] ADULT; ELDER ELDER PER 15 CARE CARE MINUTES URINLS 68355 A C JENELLE, DIP 9 LEANDRA PETIT STICK/TAB PSC LET REAGNT NON-AUTO MICRSCPY CULTURE 43432 [facility] BACTERIAL 9 [employer] QUANTTATI VE COLONY COUNT URINE CUL BACT 61786 [facility] AEROBIC 9 [employer] ADDL [employer] HOLDING METHS DEFINITIV E EA ISOL CULTURE 25091 [facility] BCT 9 [employer] ISOL&PRSM HOLDING HOLDING PTV ID ISOLATE EA URINE SUSCEPTIB [id number] LAB [facility] LTY STDY 9 [employer] ANTIMICRB HOLDING HOLDING IAL MICRO/AGA R DILUTJ DAY CARE [id number] ADULT; ELDER ELDER PER 15 CARE CARE MINUTES DAY CARE [id number] ADULT; ELDER ELDER PER 15 CARE CARE MINUTES DAY CARE [id number] [address] ADULT; ELDER ELDER PER 15 CARE CARE MINUTES DAY CARE [id number] ADULT; ELDER ELDER PER 15 CARE CARE MINUTES DAY CARE [id number] ADULT; ELDER ELDER PER 15 CARE CARE MINUTES DAY CARE [id number] ADULT; ELDER ELDER PER 15 CARE CARE MINUTES DAY CARE [id number] ADULT; ELDER ELDER PER 15 CARE CARE MINUTES DAY CARE [id number] ADULT; ELDER ELDER PER 15 CARE CARE MINUTES DAY CARE [id number] ADULT; ELDER ELDER PER 15 CARE CARE MINUTES INTERMIT A4351 OUMAR OUMAR URIN 9 [facility] CATH; E CENTERS E CENTERS STRAIGHT TIP W/WO COAT EA DAY CARE [id number] ADULT; ELDER ELDER PER 15 CARE CARE MINUTES DAY CARE [id number] ADULT; ELDER ELDER PER 15 CARE CARE MINUTES DAY CARE [id number] ADULT; ELDER ELDER PER 15 CARE CARE MINUTES DAY CARE S5100 [facility] [address] [place] [address] ADULT; ELDER ELDER PER 15 CARE CARE MINUTES DAY CARE S5100 [facility] [address] [place] [address] ADULT; ELDER ELDER PER 15 CARE CARE MINUTES DAY CARE S5100 [facility] [address] [place] [address] ADULT; ELDER ELDER PER 15 CARE CARE MINUTES ADLT SZD [id number] [facility] 9 HOME HOME [facility] PROD AGENCY AGENCY UNDWEAR XTRA LG EA DAY CARE S5100 [facility] [address] [place] [address] ADULT; ELDER ELDER PER 15 CARE CARE MINUTES DAY CARE S5100 [facility] [address] [place] [address] ADULT; ELDER ELDER PER 15 CARE CARE MINUTES DAY CARE S5100 [facility] [address] [place] [address] ADULT; ELDER ELDER PER 15 CARE CARE MINUTES DAY CARE S5[address] [facility] [address] [place] [address] ADULT; ELDER ELDER PER 15 CARE CARE MINUTES DAY CARE S5[address] [facility] [address] [place] [address] ADULT; ELDER ELDER PER 15 CARE CARE MINUTES DAY CARE S5[address] [facility] [address] [place] [address] ADULT; ELDER ELDER PER 15 CARE CARE MINUTES DAY CARE S5[address] [facility] [address] [place] [address] ADULT; ELDER ELDER PER 15 CARE CARE MINUTES DAY CARE S5[address] [facility] [address] [place] [address] ADULT; ELDER ELDER PER 15 CARE CARE MINUTES DAY CARE S5[address] [facility] [address] [place] [address] ADULT; ELDER ELDER PER 15 CARE CARE MINUTES DAY CARE S5[address] [facility] [address] [place] [address] ADULT; ELDER ELDER PER 15 CARE CARE MINUTES DAY CARE S5[address] [facility] [address] [place] [address] ADULT; ELDER ELDER PER 15 CARE CARE MINUTES DAY CARE S5[address] [facility] [address] [place] [address] ADULT; ELDER ELDER PER 15 CARE CARE MINUTES DAY CARE S5100 [facility] [address] [place] [address] ADULT; ELDER ELDER PER 15 CARE CARE MINUTES DAY CARE S5100 [facility] [address] [place] [address] ADULT; ELDER ELDER PER 15 CARE CARE MINUTES DAY CARE S[address] [facility] [address] [place] [address] ADULT; ELDER ELDER PER 15 CARE CARE MINUTES DAY CARE S5100 RAMANDEEP RAMANDEEP [address] ADULT; ELDER ELDER PER 15 CARE CARE MINUTES DAY CARE S5100 RAMANDEEP RAMANDEEP [address] ADULT; ELDER ELDER PER 15 CARE CARE MINUTES DAY CARE S5100 RAMANDEEP RAMANDEEP [address] ADULT; ELDER ELDER PER 15 CARE CARE MINUTES DAY CARE S5100 RAMANDEEP RAMANDEEP [address] ADULT; ELDER ELDER PER 15 CARE CARE MINUTES TRAPEZE E0940 [facility] TOP[facility] BAR 9 HOME MED HOME MED FREESTAND EQUIP. EQUIP. [facility] COMPLETE WITH GRAB BAR HOS BED E0260 Y[facility]N TOPETE SEMI-ELEC 9 HOME MED HOME MED W/ANY EQUIP. EQUIP. TYPE SIDE [facility] RAIL W/MATTRSS DAY CARE S[address] ADULT; ELDER ELDER PER 15 CARE CARE MINUTES DAY CARE S5[address] ADULT; ELDER ELDER PER 15 CARE CARE MINUTES DAY CARE S5[address] ADULT; ELDER ELDER PER 15 CARE CARE MINUTES DAY CARE S5[address] ADULT; ELDER ELDER PER 15 CARE CARE MINUTES DAY CARE S5[address] ADULT; ELDER ELDER PER 15 CARE CARE MINUTES DAY CARE S5[address] ADULT; ELDER ELDER PER 15 CARE CARE MINUTES BASIC 52049 [facility] METABOLIC 9 AMERIC AMERIC PANEL HOLDING HOLDING CALCIUM TOTAL COLLECTIO 00270 Mary HANDY N VENOUS 9 LEANDRA Messer BLOOD PSC VENIPUNCT URE DRUG 52641 [facility] ASSAY 9 AMERIC AMERIC VALPROIC HOLDING HOLDING DIPROPYLA CETIC ACID TOTAL PROTHROMB 33003 Mary HANDY IN TIME 9 LEANDRA Messer PSC ADLT SZD T4528 [facility] PROD AGENCY AGENCY UNDWEAR XTRA LG EA DAY CARE S[address] ADULT; ELDER ELDER PER 15 CARE CARE MINUTES DAY CARE S5[address] ADULT; ELDER ELDER PER 15 CARE CARE MINUTES DAY CARE S5[address] ADULT; ELDER ELDER PER 15 CARE CARE MINUTES DAY CARE S5[address] ADULT; ELDER ELDER PER 15 CARE CARE MINUTES URINLS 09908 A Ayde MOBLEY, A DIP 9 LEANDRA WHITESIDE C STICK/TAB PSC LET REAGNT NON-AUTO MICRSCPY INCONTINE T4541 [facility] 9 HOME HOME [facility] DISPOSABL AGENCY AGENCY E UNDPAD LARGE EA DAY CARE S[address] ADULT; ELDER ELDER PER 15 CARE CARE MINUTES DAY CARE S5[address] ADULT; ELDER ELDER PER 15 CARE CARE MINUTES DAY CARE S5[address] ADULT; ELDER ELDER PER 15 CARE CARE MINUTES DAY CARE S5[address] ADULT; ELDER ELDER PER 15 CARE CARE MINUTES TRAPEZE E0940 YOSELYN SCHROEDER 9 HOME MED HOME MED FREESTAND EQUIP. EQUIP. ING [facility] COMPLETE WITH GRAB [facility] HOS BED E0260 YOSELYN TOPETE SEMI-ELEC 9 HOME MED HOME MED W/ANY EQUIP. EQUIP. TYPE SIDE [facility] RAIL W/MATTRSS DAY CARE S[address] ADULT; ELDER ELDER PER 15 CARE CARE MINUTES DAY CARE S5[address] ADULT; ELDER ELDER PER 15 CARE CARE MINUTES DAY CARE S5[address] ADULT; ELDER ELDER PER 15 CARE CARE MINUTES DAY CARE S5[address] ADULT; ELDER ELDER PER 15 CARE CARE MINUTES DAY CARE S5[address] ADULT; ELDER ELDER PER 15 CARE CARE MINUTES DAY CARE S5[address] ADULT; ELDER ELDER PER 15 CARE CARE MINUTES DAY CARE S5[address] ADULT; ELDER ELDER PER 15 CARE CARE MINUTES DAY CARE S5[address] ADULT; ELDER ELDER PER 15 CARE CARE MINUTES DAY CARE S5[address] ADULT; ELDER ELDER PER 15 CARE CARE MINUTES DAY CARE S5[address] ADULT; ELDER ELDER PER 15 CARE CARE MINUTES DAY CARE S5[address] ADULT; ELDER ELDER PER 15 CARE CARE MINUTES CULTURE 43868 [facility] BCT 9 AMERIC AMERIC ISOL&PRSM HOLDING HOLDING PTV ID ISOLATE EA URINE CUL BACT 25241 [facility] AEROBIC 9 AMERIC AMERIC ADDL HOLDING HOLDING METHS DEFINITIV E EA ISOL CULTURE 59222 LAB [facility] BACTERIAL 9 AMERIC AMERIC HOLDING HOLDING QUANTTATI VE COLONY COUNT URINE SUSCEPTIB 31234 LAB [facility] LTY STDY 9 AMERIC AMERIC ANTIMICRB HOLDING HOLDING IAL MICRO/AGA R DILUTJ DAY CARE S[address] ADULT; ELDER ELDER PER 15 CARE CARE MINUTES URINLS 12139 A Mary SMITH DIP 9 LEANDRA WHITESIDE C STICK/TAB PSC LET REAGNT NON-AUTO MICRSCPY DAY CARE S5[address] ADULT; ELDER ELDER PER 15 CARE CARE MINUTES DAY CARE S5[address] ADULT; ELDER ELDER PER 15 CARE CARE MINUTES DAY CARE S5[address] ADULT; ELDER ELDER PER 15 CARE CARE MINUTES CERVICAL L0172 PROSTHETI PROSTHETI COLLAR 9 C&ORTHOTI C&ORTHOTI SEMI-RIGI C C D FOAM ASSOCIATE ASSOCIATE TWO [employer] S,LL[facility] PREFAB DAY CARE S[address] ADULT; ELDER ELDER PER 15 CARE CARE MINUTES DAY CARE S5[address] ADULT; ELDER ELDER PER 15 CARE CARE MINUTES TRAPEZE E0940 Y[facility] SCHROEDER 9 HOME MED HOME MED FREESTAND EQUIP. EQUIP. [facility] COMPLETE WITH [facility] H[facility] BED E0260 Y[facility]LYN TOPETE SEMI-ELEC 9 HOME MED HOME MED W/ANY EQUIP. EQUIP. TYPE SIDE [facility] RAIL W/MATTRSS DAY CARE S[address] ADULT; ELDER ELDER PER 15 CARE CARE MINUTES ADLT SZD T4528 [facility] 9 HOME HOME [facility] PROD AGENCY AGENCY UNDWEAR XTRA LG EA DAY CARE S[address] ADULT; ELDER ELDER PER 15 CARE CARE MINUTES DAY CARE S5[address] ADULT; ELDER ELDER PER 15 CARE CARE MINUTES DAY CARE S5[address] ADULT; ELDER ELDER PER 15 CARE CARE MINUTES DAY CARE S5[address] ADULT; ELDER ELDER PER 15 CARE CARE MINUTES URINLS 82133 Mary MOBLEY, Mary DIP 9 LEANDRA Messer STICK/TAB PSC LET REAGNT NON-AUTO MICRSCPY INTERMIT A4351 [facility]IN 9 [facility] CATH; E CENTERS E CENTERS STRAIGHT TIP W/WO COAT EA DAY CARE S5[address] ADULT; ELDER ELDER PER 15 CARE CARE MINUTES DAY CARE S5[address] ADULT; ELDER ELDER PER 15 CARE CARE MINUTES DAY CARE S5[address] ADULT; ELDER ELDER PER 15 CARE CARE MINUTES DAY CARE S5[address] ADULT; ELDER ELDER PER 15 CARE CARE MINUTES DAY CARE S5[address] ADULT; ELDER ELDER PER 15 CARE CARE MINUTES DAY CARE S5[address] ADULT; ELDER ELDER PER 15 CARE CARE MINUTES DAY CARE S5[address] ADULT; ELDER ELDER PER 15 CARE CARE MINUTES SUSCEPTIB 50260 LAB [facility] LTY STDY 9 AMERIC AMERIC ANTIMICRB HOLDING HOLDING IAL MICRO/AGA R DILUTJ CULTURE 07298 LAB [facility] BCT 9 AMERIC AMERIC ISOL&PRSM HOLDING HOLDING PTV ID ISOLATE EA URINE CULTURE 03420 LAB [facility] BACTERIAL 9 AMERIC AMERIC HOLDING HOLDING QUANTTATI VE COLONY COUNT URINE CUL BACT 52368 LAB [facility] AEROBIC 9 AMERIC AMERIC ADDL HOLDING HOLDING METHS DEFINITIV E EA ISOL URINLS 92752 Mary HANDY DIP 9 LEANDRA Messer STICK/TAB PSC LET REAGNT NON-AUTO MICRSCPY TRAPEZE E0940 [facility] Y[facility] BAR 9 HOME MED HOME MED FREESTAND EQUIP. EQUIP. [facility] COMPLETE WITH GRAB BAR HOS BED E0260 Y[facility]N YOSELYN SEMI-ELEC 9 HOME MED HOME MED W/ANY EQUIP. EQUIP. TYPE SIDE [facility] RAIL W/MATTRSS DAY CARE S[address] ADULT; ELDER ELDER PER 15 CARE CARE MINUTES DAY CARE S5[address] ADULT; ELDER ELDER PER 15 CARE CARE MINUTES DAY CARE S5[address] ADULT; ELDER ELDER PER 15 CARE CARE MINUTES DAY CARE S5[address] ADULT; ELDER ELDER PER 15 CARE CARE MINUTES DAY CARE S5[address] ADULT; ELDER ELDER PER 15 CARE CARE MINUTES DAY CARE S5[address] ADULT; ELDER ELDER PER 15 CARE CARE MINUTES DAY CARE S5[address] ADULT; ELDER ELDER PER 15 CARE CARE MINUTES INTERMIT A4351 [facility]; E CENTERS E CENTERS STRAIGHT TIP W/WO COAT EA DAY CARE S[address] ADULT; ELDER ELDER PER 15 CARE CARE MINUTES DAY CARE S5[address] ADULT; ELDER ELDER PER 15 CARE CARE MINUTES ADLT SZD T4528 [facility] 9 HOME HOME [facility] HEALTH PROD AGENCY AGENCY UNDWEAR XTRA LG EA DAY CARE S[address] ADULT; ELDER ELDER PER 15 CARE [...] CALIBRATO R SOLUTION/ CHIPS DAY CARE S[address] ADULT; ELDER ELDER PER 15 CARE CARE MINUTES DAY CARE S5[address] ADULT; ELDER ELDER PER 15 CARE CARE MINUTES DAY CARE S[address] ADULT; ELDER ELDER PER 15 CARE CARE MINUTES DAY CARE S[address] ADULT; ELDER ELDER PER 15 CARE CARE MINUTES SUSCEPTIB 93806 LAB [facility] LAB [facility] LTY STDY 8 AMERIC AMERIC ANTIMICRB HOLDING HOLDING IAL MICRO/AGA R DILUTJ CULTURE 69293 LAB AN[facility] LAB AN[facility] BCT 8 AMERIC AMERIC ISOL&PRSM HOLDING HOLDING PTV ID ISOLATE EA URINE CUL BACT 56152 LAB [facility] AEROBIC 8 AMERIC AMERIC ADDL HOLDING HOLDING METHS DEFINITIV E EA ISOL CULTURE 18402 LAB AN[facility] LAB [facility] BACTERIAL 8 AMERIC AMERIC HOLDING HOLDING QUANTTATI VE COLONY COUNT URINE TRAPEZE E0940 Y[facility]N SCHROEDER 8 HOME MED HOME MED FREESTAND EQUIP. EQUIP. [facility] COMPLETE WITH GRAMarie [facility] DAY CARE S[address] ADULT; ELDER ELDER PER 15 CARE CARE MINUTES HOS BED E0260 YOSELYN TOPETE SEMI-ELEC 8 HOME MED HOME MED W/ANY EQUIP. EQUIP. TYPE SIDE [facility] RAIL W/MATTRSS DAY CARE S[address] ADULT; ELDER ELDER PER 15 CARE CARE MINUTES DAY CARE S[address] ADULT; ELDER ELDER PER 15 CARE CARE MINUTES DAY CARE S[address] ADULT; ELDER ELDER PER 15 CARE CARE MINUTES DAY CARE S[address] ADULT; ELDER ELDER PER 15 CARE CARE MINUTES DAY CARE S[address] ADULT; ELDER ELDER PER 15 CARE CARE MINUTES DAY CARE S5[address] ADULT; ELDER ELDER PER 15 CARE CARE MINUTES DAY CARE S5[address] ADULT; ELDER ELDER PER 15 CARE CARE MINUTES DAY CARE S[address] ADULT; ELDER ELDER PER 15 CARE CARE MINUTES DAY CARE S[address] ADULT; ELDER ELDER PER 15 CARE CARE MINUTES INTERMIT A4351 OUMAR SENA 8 [facility] CATH; E CENTERS E CENTERS STRAIGHT TIP W/WO COAT EA DAY CARE S[address] ADULT; ELDER ELDER PER 15 CARE CARE MINUTES DAY CARE S5[address] ADULT; ELDER ELDER PER 15 CARE CARE MINUTES DAY CARE S5[address] ADULT; ELDER ELDER PER 15 CARE CARE MINUTES DAY CARE S5[address] ADULT; ELDER ELDER PER 15 CARE CARE MINUTES DAY CARE S[address] ADULT; ELDER ELDER PER 15 CARE CARE MINUTES TRAPEZE E0940 YOSELYN SCHROEDER 8 HOME MED HOME MED FREESTAND EQUIP. EQUIP. [facility] BED E0260 YOSELYN TOPETE SEMI-ELEC 8 HOME MED HOME MED W/ANY EQUIP. EQUIP. TYPE SIDE [facility] RAIL W/MATTRSS DAY CARE S[address] ADULT; ELDER ELDER PER 15 CARE CARE MINUTES DAY CARE S[address] ADULT; ELDER ELDER PER 15 CARE CARE MINUTES DAY CARE S5[address] ADULT; ELDER ELDER PER 15 CARE CARE MINUTES DAY CARE S5[address] ADULT; ELDER ELDER PER 15 CARE CARE MINUTES DAY CARE S[address] ADULT; ELDER ELDER PER 15 CARE CARE MINUTES ADLT SZD T4528 [facility] 8 HOME HOME [facility] PROD AGENCY AGENCY UNDWEAR XTRA LG EA DAY CARE S[address] ADULT; ELDER ELDER PER 15 CARE CARE MINUTES DAY CARE S5[address] ADULT; ELDER ELDER PER 15 CARE CARE MINUTES DAY CARE S5[address] ADULT; ELDER ELDER PER 15 CARE CARE MINUTES DAY CARE S5[address] ADULT; ELDER ELDER PER 15 CARE CARE MINUTES DAY CARE S5[address] ADULT; ELDER ELDER PER 15 CARE CARE MINUTES DAY CARE S5[address] ADULT; ELDER ELDER PER 15 CARE CARE MINUTES URINLS 63870 A Ayde MOBLEY, A DIP 8 LEANDRA Messer STICK/TAB PSC LET REAGNT NON-AUTO MICRSCPY IIV3 94041 RAMANDEEP SABILLON VACCINE 8 [facility] SPLIT CENTER CENTER VIRUS 0.5 ML DOSAGE IM USE DAY CARE S[address] ADULT; ELDER ELDER PER 15 CARE CARE MINUTES ADMINISTR G0008 RAMANDEEP SABILLON ATION OF 8 [facility] INFLUENZA CENTER CENTER VIRUS VACCINE DAY CARE S[address] ADULT; ELDER ELDER PER 15 CARE CARE MINUTES DAY CARE S5[address] ADULT; ELDER ELDER PER 15 CARE CARE MINUTES DAY CARE S5[address] ADULT; ELDER ELDER PER 15 CARE CARE MINUTES DAY CARE S5[address] ADULT; ELDER ELDER PER 15 CARE CARE MINUTES DAY CARE S5[address] ADULT; ELDER ELDER PER 15 CARE CARE MINUTES DAY CARE S[address] ADULT; ELDER ELDER PER 15 CARE CARE MINUTES TRAPEZE E0940 YOSELYN SCHROEDER 8 HOME MED HOME MED FREESTAND EQUIP. EQUIP. [facility] COMPLETE WITH ART SCHROEDER SUSCEPTIB 91351 LAB ANIKA LAB AN[facility] LTY STDY 8 AMERIC AMERIC ANTIMICRB HOLDING HOLDING IAL MICRO/AGA R DILUTJ CULTURE 47409 LAB ANIK[facility] LAB AN[facility] BACTERIAL 8 AMERIC AMERIC HOLDING HOLDING QUANTTATI VE COLONY COUNT URINE CUL BACT 50906 LAB ANIK[facility] LAB [facility] AEROBIC 8 AMERIC AMERIC ADDL HOLDING HOLDING METHS DEFINITIV E EA ISOL CULTURE 81026 LAB ANIKA LAB [facility] BCT 8 AMERIC AMERIC ISOL&PRSM HOLDING HOLDING PTV ID ISOLATE EA URINE HOS BED E0260 YOSELYN GUAJARDORELL SEMI-ELEC 8 HOME MED HOME MED W/ANY EQUIP. EQUIP. TYPE SIDE [facility] RAIL W/MATTRSS INTERMIT A4351 OUMAR OUMAR URIN 8 [facility] HEALTHCAR CATH; E CENTERS E CENTERS STRAIGHT TIP W/WO COAT EA DAY CARE S[address] ADULT; ELDER ELDER PER 15 CARE CARE MINUTES DAY CARE S5[address] ADULT; ELDER ELDER PER 15 CARE CARE MINUTES DAY CARE S5[address] ADULT; ELDER ELDER PER 15 CARE CARE MINUTES DAY CARE S5[address] ADULT; ELDER ELDER PER 15 CARE CARE MINUTES DAY CARE S5[address] ADULT; ELDER ELDER PER 15 CARE CARE MINUTES DAY CARE S5[address] ADULT; ELDER ELDER PER 15 CARE CARE MINUTES DAY CARE S5[address] ADULT; ELDER ELDER PER 15 CARE CARE MINUTES DAY CARE S5[address] ADULT; ELDER ELDER PER 15 CARE CARE MINUTES DAY CARE S5[address] ADULT; ELDER ELDER PER 15 CARE CARE MINUTES ADLT SZD T4528 [facility] 8 HOME HOME INCONT HEALTH HEALTH PROD AGENCY AGENCY ROBERTAR XTRA LG EA A4258 M E D M E D WERED 8 SUPPLIES SUPPLIES DEVICE FOR LANCET EACH DAY CARE S5100 [facility] [address] [place] [address] ADULT; ELDER ELDER PER 15 CARE CARE MINUTES REPL CRUZ A4235 M E D M E D LITHIUM 8 SUPPLIES SUPPLIES MED NECES SHERYL BG MON OWN PT EA NORMAL A4256 M E D M E D LOW AND 8 SUPPLIES SUPPLIES HIGH CALIBRATO R SOLUTION/ CHIPS LANCETS A4259 M E D M E D PER BOX 8 SUPPLIES SUPPLIES OF 100 BLD GLU A4253 M E D M E D TEST/REAG 8 SUPPLIES SUPPLIES T STRIPS HOME BLD GLU MON-50 DAY CARE S[address] ADULT; ELDER ELDER PER 15 CARE CARE MINUTES DAY CARE S5[address] ADULT; ELDER ELDER PER 15 CARE CARE MINUTES DAY CARE S5[address] ADULT; ELDER ELDER PER 15 CARE CARE MINUTES DAY CARE S5[address] ADULT; ELDER ELDER PER 15 CARE CARE MINUTES DAY CARE S5[address] ADULT; ELDER ELDER PER 15 CARE CARE MINUTES DAY CARE S5[address] ADULT; ELDER ELDER PER 15 CARE CARE MINUTES DAY CARE S5[address] ADULT; ELDER ELDER PER 15 CARE CARE MINUTES DAY CARE S5[address] ADULT; ELDER ELDER PER 15 CARE CARE MINUTES DAY CARE S5[address] ADULT; ELDER ELDER PER 15 CARE CARE MINUTES DAY CARE S5[address] ADULT; ELDER ELDER PER 15 CARE CARE MINUTES DAY CARE S5[address] ADULT; ELDER ELDER PER 15 CARE CARE MINUTES DAY CARE S5[address] ADULT; ELDER ELDER PER 15 CARE CARE MINUTES DAY CARE S5[address] ADULT; ELDER ELDER PER 15 CARE CARE MINUTES DAY CARE S5[address] ADULT; ELDER ELDER PER 15 CARE CARE MINUTES DAY CARE S5[address] ADULT; ELDER ELDER PER 15 CARE CARE MINUTES DAY CARE S5[address] ADULT; ELDER ELDER PER 15 CARE CARE MINUTES DAY CARE S5[address] ADULT; ELDER ELDER PER 15 CARE CARE MINUTES DAY CARE S5[address] ADULT; ELDER ELDER PER 15 CARE CARE MINUTES DAY CARE S5[address] ADULT; ELDER ELDER PER 15 CARE CARE MINUTES DAY CARE S5[address] ADULT; ELDER ELDER PER 15 CARE CARE MINUTES DAY CARE S5[address] ADULT; ELDER ELDER PER 15 CARE CARE MINUTES OPHTH 31710 ROBER, ROBER, MEDICAL 8 KIT A KIT A XM&JOELLE COMPRE NEW PT 1/> VST DAY CARE S[address] ADULT; ELDER ELDER PER 15 CARE CARE MINUTES TRAPEZE E0940 YOSELYN SCHROEDER 8 HOME MED HOME MED FREESTAND EQUIP. EQUIP. [facility] COMPLETE WITH GRAB [facility] HOS BED E0260 YOSELYN TOPETE SEMI-ELEC 8 HOME MED HOME MED W/ANY EQUIP. EQUIP. TYPE SIDE [facility] RAIL W/MATTRSS DAY CARE S[address] ADULT; ELDER ELDER PER 15 CARE CARE MINUTES DAY CARE S5[address] ADULT; ELDER ELDER PER 15 CARE CARE MINUTES DAY CARE S5[address] ADULT; ELDER ELDER PER 15 CARE CARE MINUTES DAY CARE S5[address] ADULT; ELDER ELDER PER 15 CARE CARE MINUTES DAY CARE S5[address] ADULT; ELDER ELDER PER 15 CARE CARE MINUTES DAY CARE S5[address] ADULT; ELDER ELDER PER 15 CARE CARE MINUTES DAY CARE S[address] ADULT; ELDER ELDER PER 15 CARE CARE MINUTES INTERMIT A4351 OUMAR SENA 8 [facility] CATH; E CENTERS E CENTERS STRAIGHT TIP W/WO COAT EA DAY CARE S5100 RAMANDEEPSHEREE SABILLON [address] ADULT; ELDER ELDER PER 15 CARE CARE MINUTES DAY CARE S5100 RAMANDEEP RAMANDEEP [address] ADULT; ELDER ELDER PER 15 CARE CARE MINUTES DAY CARE S5100 RAMANDEEP RAMANDEEP [address] ADULT; ELDER ELDER PER 15 CARE CARE MINUTES DAY CARE S5100 RAMANDEEPSHEREE SABILLON [address] ADULT; ELDER ELDER PER 15 CARE CARE MINUTES DAY CARE S5100 RAMANDEEP RAMANDEEP [address] ADULT; ELDER ELDER PER 15 CARE CARE MINUTES DAY CARE S5100 RAMANDEEP RAMANDEEP [address] ADULT; ELDER ELDER PER 15 CARE CARE MINUTES DAY CARE S[address] ADULT; ELDER ELDER PER 15 CARE CARE MINUTES ADLT SZD T4528 [facility] 8 HOME HOME INCONT HEALTH HEALTH PROD AGENCY AGENCY UNDWEAR XTRA LG EA INCONTINE T4541 [facility] NCE 8 HOME HOME PRODUCT HEALTH HEALTH DISPOSABL AGENCY AGENCY E UNDPAD LARGE EA DAY CARE S5100 RAMANDEEPSHEREE SABILLON [address] ADULT; ELDER ELDER PER 15 CARE CARE MINUTES DAY CARE S5100 RAMANDEEPSHEREE SABILLON [address] ADULT; ELDER ELDER PER 15 CARE CARE MINUTES DAY CARE S5100 RAMANDEEPSHEREE SABILLON [address] ADULT; ELDER ELDER PER 15 CARE CARE MINUTES TRAPEZE E0940 YOSELYN SCHROEDER 8 HOME MED HOME MED FREESTAND EQUIP. EQUIP. [facility] COMPLETE WITH ART SCH[facility] HOS BED E0260 YOSELYN TOPETE SEMI-ELEC 8 HOME MED HOME MED W/ANY EQUIP. EQUIP. TYPE SIDE [facility] RAIL W/MATTRSS DAY CARE S5100 RAMANDEEPSHEREE SABILLON [address] ADULT; ELDER ELDER PER 15 CARE CARE MINUTES DAY CARE S5100 RAMANDEEP RAMANDEEP [address] ADULT; ELDER ELDER PER 15 CARE CARE MINUTES DAY CARE S5100 RAMANDEEPSHEREE SABILLON [address] ADULT; ELDER ELDER PER 15 CARE CARE MINUTES CREATINE [id number] RAMANDEEP OLSONON KINASE 8 [facility] TOTAL INC INC PROTHROMB 40096 RAMANDEEP SABILLON IN TIME 8 [facility] INC INC DRUG 05142 RAMANDEEP SABILLON ASSAY 8 [facility] VALPROIC INC INC DIPROPYLA CETIC ACID TOTAL GROUND A0425 GENERAL ACUTE HOSPITALEA 8 AMBULANCE AMBULANCE [place] [address] RAMANDEEP RAMANDEEP TROPONIN 8 [facility] QUANTITAT INC INC TAYLER BLOOD 51768 RAMANDEEP SABILLON COUNT 8 [facility] COMPLETE INC INC AUTO&AUTO DIFRNTL WBC COMPREHEN 38984 RAMANDEEP SABILLON SIVE 8 [facility] METABOLIC INC INC PANEL CREATINE 89481 RAMANDEEP SABILLON KINASE MB 8 [facility] FRACTION INC INC ONLY ECG 42821 RAMANDEEP STODDARD, ROUTINE 8 [facility] W/LEAST PROF SERV 12 LDS I&R ONLY ECG 78357 RAMANDEEP SABILLON ROUTINE 8 [facility] ECG INC INC W/LEAST 12 LDS TRCG ONLY W/O I&R 3D 90266 [facility] BURRIS, RENDERING 8 MEDICAL YONY P IMAGING W/INTERP& ASSOCIATE POSTPROC S DIFF WORK STATION AMB A0427 [facility] SERVICE 8 AMBULANCE AMBULANCE ALS SERVICE SERVICE EMERGENCY TRANSPORT LEVEL 1 THROMBOPL 48113 RAMANDEEP SABILLON ASTIN 8 [facility] TIME INC INC PARTIAL PLASMA/[place] [address] [facility] BURRIS, HEAD/BRAI 8 MEDICAL YONY P N W/O IMAGING CONTRAST ASSOCIATE MATERIAL S [place] NFS 23001 RAMANDEEP SABILLON THER 8 [facility] PROPH/DX INC INC 1ST >1 HR DAY CARE S5100 RAMANDEEP SABILLON SERVICES [address] [place] [address] ADULT; ELDER ELDER PER 15 CARE CARE MINUTES DAY CARE S5100 RAMANDEEP SABILLON SERVICES [address] [place] [address] ADULT; ELDER ELDER PER 15 CARE CARE MINUTES DAY CARE S5100 RAMANDEEP SABILLON [facility] [address] [place] [address] ADULT; ELDER ELDER PER 15 CARE CARE MINUTES DAY CARE S5100 RAMANDEEP SABILLON [facility] [address] [place] [address] ADULT; ELDER ELDER PER 15 CARE CARE MINUTES BLD GLU A4253 M E D M E D TEST/REAG 8 SUPPLIES SUPPLIES T STRIPS HOME BLD GLU MON-50 DAY CARE S[address] ADULT; ELDER ELDER PER 15 CARE CARE MINUTES DAY CARE S[address] ADULT; ELDER ELDER PER 15 CARE CARE MINUTES TRAPEZE E0940 YOSELYN TOPETE BAR 8 HOME MED HOME MED FREESTAND EQUIP. EQUIP. ING [employer] COMPLETE WITH [facility] HOS BED E0260 YOSELYN TOPETE SEMI-ELEC 8 HOME MED HOME MED W/ANY EQUIP. EQUIP. TYPE SIDE [facility] RAIL W/MATTRSS DAY CARE S[address] ADULT; ELDER ELDER PER 15 CARE CARE MINUTES DAY CARE S[address] ADULT; ELDER ELDER PER 15 CARE CARE MINUTES DAY CARE S[address] ADULT; ELDER ELDER PER 15 CARE CARE MINUTES MEDICAL 64041 [facility] [address] [place] [address] ASSMT&IVN BANK ACCT TJ INDIV EACH 15 AL DAY CARE S[address] ADULT; ELDER ELDER PER 15 CARE CARE MINUTES DAY CARE S[address] ADULT; ELDER ELDER PER 15 CARE CARE MINUTES ADLT SZD T4528 [facility] 8 HOME HOME INCONT HEALTH HEALTH PROD AGENCY AGENCY UNDWEAR XTRA LG EA DAY CARE S[address] ADULT; ELDER ELDER PER 15 CARE CARE MINUTES DAY CARE S[address] ADULT; ELDER ELDER PER 15 CARE CARE MINUTES DAY CARE S5100 [address] [address] ADULT; ELDER ELDER PER 15 CARE CARE MINUTES DAY CARE S5[address] ADULT; ELDER ELDER PER 15 CARE CARE MINUTES TRAPEZE [id number] YOSELYN SCHROEDER 8 HOME MED HOME MED FREESTAND EQUIP. EQUIP. ING [employer] COMPLETE WITH GRAB BAR HOS BED [id number] YOSELYN GUAJARDORELL SEMI-ELEC 8 HOME MED HOME MED W/ANY EQUIP. EQUIP. TYPE [facility] RAIL W/MATTRSS DAY CARE S5[address] ADULT; ELDER ELDER PER 15 CARE CARE MINUTES DAY CARE S5100 [address] ADULT; ELDER ELDER PER 15 CARE CARE MINUTES DAY CARE S5[address] ADULT; ELDER ELDER PER 15 CARE CARE MINUTES DAY CARE S5[address] ADULT; ELDER ELDER PER 15 CARE CARE MINUTES DAY CARE S5100 [address] ADULT; ELDER ELDER PER 15 CARE CARE MINUTES DAY CARE S5100 [address] ADULT; ELDER ELDER PER 15 CARE CARE MINUTES DAY CARE S5100 [address] ADULT; ELDER ELDER PER 15 CARE CARE MINUTES INTERMIT [id number] OUMAR SENA 8 [facility] CATH; E CENTERS E CENTERS STRAIGHT TIP W/WO COAT EA DAY CARE S5100 [address] ADULT; ELDER ELDER PER 15 CARE CARE MINUTES DAY CARE S5100 [address] ADULT; ELDER ELDER PER 15 CARE CARE MINUTES DAY CARE S5100 [address] ADULT; ELDER ELDER PER 15 CARE CARE MINUTES DAY CARE S5100 [address] ADULT; ELDER ELDER PER 15 CARE CARE MINUTES DAY CARE S5100 [address] ADULT; ELDER ELDER PER 15 CARE CARE MINUTES DAY CARE S5[address] ADULT; ELDER ELDER PER 15 CARE CARE MINUTES DAY CARE S5[address] ADULT; ELDER ELDER PER 15 CARE CARE MINUTES DAY CARE S5100 [address] ADULT; ELDER ELDER PER 15 CARE CARE MINUTES DAY CARE S5[address] ADULT; ELDER ELDER PER 15 CARE CARE MINUTES DAY CARE S5100 [address] ADULT; ELDER ELDER PER 15 CARE CARE MINUTES DAY CARE S5[address] ADULT; ELDER ELDER PER 15 CARE CARE MINUTES DAY CARE S5[address] ADULT; ELDER ELDER PER 15 CARE CARE MINUTES DAY CARE S5100 [address] ADULT; ELDER ELDER PER 15 CARE CARE MINUTES TRAPEZE [id number] YOSELYN TOPETE BAR 8 HOME MED HOME MED FREESTAND EQUIP. EQUIP. ING [facility] COMPLETE WITH GRAB BAR HOS BED [id number] YOSELYN TOPETE SEMI-ELEC 8 HOME MED HOME MED W/ANY EQUIP. EQUIP. TYPE SIDE [facility] RAIL W/MATTRSS AIR PRESS [id number] YOSELYN TOPETE PAD 8 HOME MED HOME MED MATTRSS EQUIP. EQUIP. STD [facility] MATTRSS LENGTH&WI DTH DAY CARE S5[address] ADULT; ELDER ELDER PER 15 CARE CARE MINUTES DAY CARE S5100 [address] ADULT; ELDER ELDER PER 15 CARE CARE MINUTES DAY CARE S5[address] ADULT; ELDER ELDER PER 15 CARE CARE MINUTES DAY CARE S5[address] ADULT; ELDER ELDER PER 15 CARE CARE MINUTES DAY CARE S5[address] ADULT; ELDER ELDER PER 15 CARE CARE MINUTES DAY CARE S5[address] ADULT; ELDER ELDER PER 15 CARE CARE MINUTES DAY CARE S5100 [address] ADULT; ELDER ELDER PER 15 CARE CARE MINUTES ADLT SZD [id number] [facility] 8 HOME HOME [facility] PROD AGENCY AGENCY UNDWEAR XTRA LG EA DAY CARE S5[address] ADULT; ELDER ELDER PER 15 CARE CARE MINUTES DAY CARE S5100 [address] ADULT; ELDER ELDER PER 15 CARE CARE MINUTES DAY CARE S5[address] ADULT; ELDER ELDER PER 15 CARE CARE MINUTES BLD GLU A4253 M E D M E D TEST/REAG 8 SUPPLIES SUPPLIES T STRIPS HOME BLD GLU 50 DAY CARE S5[address] ADULT; ELDER ELDER PER 15 CARE CARE MINUTES DAY CARE S5100 [address] ADULT; ELDER ELDER PER 15 CARE CARE MINUTES DAY CARE S5100 [address] ADULT; ELDER ELDER PER 15 CARE CARE MINUTES DAY CARE S5[address] ADULT; ELDER ELDER PER 15 CARE CARE MINUTES DAY CARE S5[address] ADULT; ELDER ELDER PER 15 CARE CARE MINUTES DAY CARE S5100 [address] ADULT; ELDER ELDER PER 15 CARE CARE MINUTES DAY CARE S5[address] ADULT; ELDER ELDER PER 15 CARE CARE MINUTES DAY CARE S5[address] ADULT; ELDER ELDER PER 15 CARE CARE MINUTES DAY CARE S5[address] ADULT; ELDER ELDER PER 15 CARE CARE MINUTES DAY CARE S5[address] ADULT; ELDER ELDER PER 15 CARE CARE MINUTES INTERMIT [id number] OUMAR SENA 8 [facility] CATH; E CENTERS E CENTERS STRAIGHT TIP W/WO COAT EA DAY CARE S5[address] ADULT; ELDER ELDER PER 15 CARE CARE MINUTES DAY CARE S5[address] ADULT; ELDER ELDER PER 15 CARE CARE MINUTES DAY CARE S5[address] ADULT; ELDER ELDER PER 15 CARE CARE MINUTES ADLT SZD [id number] [facility] 8 HOME HOME INCONT HEALTH HEALTH PROD AGENCY AGENCY UNDWEAR XTRA LG EA DAY CARE S5[address] ADULT; ELDER ELDER PER 15 CARE CARE MINUTES DAY CARE S5100 [address] ADULT; ELDER ELDER PER 15 CARE CARE MINUTES DAY CARE S5[address] ADULT; ELDER ELDER PER 15 CARE CARE MINUTES DAY CARE S5100 [facility] [address] [place] [address] ADULT; ELDER ELDER PER 15 CARE CARE MINUTES DAY CARE S5100 [facility] [address] [place] [address] ADULT; ELDER ELDER PER 15 CARE CARE MINUTES DAY CARE S5100 [facility] [address] [place] [address] ADULT; ELDER ELDER PER 15 CARE CARE MINUTES DAY CARE S5100 [facility] [address] [place] [address] ADULT; ELDER ELDER PER 15 CARE CARE MINUTES DAY CARE S5100 [facility] [address] [place] [address] ADULT; ELDER ELDER PER 15 CARE CARE MINUTES DAY CARE S5100 [facility] [address] [place] [address] ADULT; ELDER ELDER PER 15 CARE CARE MINUTES DAY CARE S5100 [facility] [address] [place] [address] ADULT; ELDER ELDER PER 15 CARE CARE MINUTES DAY CARE S[address] ADULT; ELDER ELDER PER 15 CARE CARE MINUTES DAY CARE S[address] ADULT; ELDER ELDER PER 15 CARE CARE MINUTES DAY CARE S[address] ADULT; ELDER ELDER PER 15 CARE CARE MINUTES DAY CARE S[address] ADULT; ELDER ELDER PER 15 CARE CARE MINUTES DAY CARE S5[address] ADULT; ELDER ELDER PER 15 CARE CARE MINUTES DAY CARE S5100 [facility] [address] ADULT; ELDER ELDER PER 15 CARE CARE MINUTES DAY CARE S[address] ADULT; ELDER ELDER PER 15 CARE CARE MINUTES DAY CARE S5100 [facility] [address] [place] [address] ADULT; ELDER ELDER PER 15 CARE CARE MINUTES DAY CARE S5100 [facility] [address] [place] [address] ADULT; ELDER ELDER PER 15 CARE CARE MINUTES DAY CARE S5100 [facility] [address] [place] [address] ADULT; ELDER ELDER PER 15 CARE CARE MINUTES ADLT SZD [id number] [facility] 8 HOME [facility] PROD AGENCY AGENCY UNDWEAR XTRA LG EA INCONTINE T4541 [facility] NCE 8 HOME HOME PRODUCT HEALTH HEALTH DISPOSABL AGENCY AGENCY E UNDPAD LARGE EA DAY CARE S5100 [facility] 8 [facility] ADULT; ELDER ELDER PER 15 CARE CARE MINUTES DAY CARE S5100 [facility] 8 [facility] ADULT; ELDER ELDER PER 15 CARE CARE MINUTES Encounters Encounter Start End Date Code Location Performer Type Date Emergency JORGE Wadegerard (ER) 3 15:31 3 17:[address] [facility] Taurus Denney [facility], 0 0 HOME OUTPATIEN HEALTH T [facility] 0 0 [facility], 0 0 DIST OTHER HEALTH DEPT MONOTYPE CASTER HOME [facility], 0 0 DIST OTHER HEALTH DEPT [facility] HOME [facility], 0 0 HOME OUTPATIEN HEALTH T AGENCY HOME [facility], 0 0 DIST OTHER HEALTH DEPT MONOTYPE [facility]STER OFFICE 60119 TERRY GALARZA 9 9 LEANDRA Hernandez T VISIT PSC 15 MINUTES OFFICE 24446 TERRY MCGREGOR 9 9 LEANDRA PETIT T VISIT 5 PSC MINUTES HOME COUNTS INCLUDE 234 BEDS AT THE [facility] HEALTH, 9 9 DIST OTHER HEALTH DEPT MONOTYPE CASTER HOME [facility], 9 9 HOME OUTPATIEN HEALTH T AGENCY OFFICE 33243 TERRY RUIZ 9 9 LYNNE MUNGUIA T VISIT SERV 15 FOUNDATIO MINUTES HOME [facility], 9 9 DIST OTHER HEALTH DEPT MONOTYPE [facility]STER HOME [facility], 9 9 HOME OUTPATIEN HEALTH T [facility] - 9 9 [facility] T HOME [facility] 9 9 DIST OTHER HEALTH DEPT MONOTYPE CASTER OFFICE 37263 TIM SCHULTE, CONSULTAT 9 9 LYNNE MUNGUIA ION SERV NEW/ESTAB FOUNDATIO PATIENT 60 MIN HOME [facility], 9 9 DIST OTHER HEALTH DEPT MONOTYPE CASTER OFFICE 55470 Mary HANDY OUTPATIEN 9 9 LEANDRA Messer T VISIT PSC 15 MINUTES OFFICE 07798 Mary HANDY OUTPATIEN 9 9 LEANDRA Messer T VISIT PSC 15 MINUTES HOME [facility], 9 9 DIST OTHER HEALTH DEPT MONOTYPE CASTER HOME [facility], 9 9 HOME OUTPATIEN HEALTH T [facility] - 9 9 [facility]EN [facility] T HOME [facility], 9 9 DIST OTHER HEALTH DEPT MONOTYPE CASTER HOME [facility], 9 9 DIST OTHER HEALTH DEPT MONOTYPE CASTER HOME [facility], 9 9 HOME OUTPATIEN HEALTH T AGENCY OFFICE 96972 TERRY GALARZA 9 9 LEANDRA Hernandez T VISIT PSC 15 MINUTES HOME [facility], 9 9 DIST OTHER HEALTH DEPT MONOTYPE CASTER OFFICE 25508 TERRY MCGREGOR 9 9 LEANDRA PETIT T VISIT 5 PSC MINUTES OFFICE 59066 TERRY GALARZA 9 9 LEANDRA Hernandez T VISIT PSC 15 MINUTES HOME [facility], 9 9 DIST OTHER HEALTH DEPT MONOTYPE CASTER HOME [facility], 9 9 HOME OUTPATIEN HEALTH T AGENCY OFFICE 45301 [facility] 9 9 HEALTH CO HEALTH T VISIT [facility] 15 BANK ACCT MINUTES HOME [facility], 9 9 DIST OTHER HEALTH DEPT MONOTYPE CASTER HOME [facility], 9 9 DIST OTHER HEALTH DEPT MONOTYPE CASTER OFFICE 31461 Mary HANDY OUTPATIEN 9 9 LEANDRA Rhodes VISIT PSC 15 MINUTES HOME [facility], 9 9 HOME OUTPATIEN HEALTH T AGENCY HOME [facility] 9 9 DIST OTHER HEALTH DEPT MONOTYPE CASTER OFFICE 95592 Mary HANDY OUTPATIEN 9 9 LEANDRA Rhodes VISIT 5 PSC MINUTES HOME [facility], 9 9 HOME OUTPATIEN HEALTH T AGENCY HOME [facility], 9 9 DIST OTHER HEALTH DEPT MONOTYPE CASTER OFFICE 02586 Mary HANDY OUTPATIEN 9 9 LEANDRA Rhodes VISIT 5 PSC MINUTES HOME [facility], 9 9 DIST OTHER HEALTH DEPT MONOTYPE CASTER HOME [facility], 9 9 HOME OUTPATIEN HEALTH T AGENCY OFFICE 44776 Mary HANDY OUTPATIEN 9 9 LEANDRA Rhodes VISIT 5 PSC MINUTES OFFICE 08099 Mary HANDY OUTPATIEN 9 9 LEANDRA Rhodes VISIT PSC 15 MINUTES HOME [facility], 9 9 DIST OTHER HEALTH DEPT MONOTYPE CASTER OFFICE 37718 Mary HANDY OUTPATIEN 9 9 LEANDRA Rhodes VISIT 5 PSC MINUTES HOME [facility], 9 9 DIST OTHER HEALTH DEPT MONOTYPE CASTER HOME [facility], 9 9 HOME OUTPATIEN HEALTH T AGENCY HOME [facility], 8 8 DIST OTHER HEALTH DEPT MONOTYPE CASTER HOME [facility], 8 8 HOME OUTPATIEN HEALTH T AGENCY HOME [facility], 8 8 DIST OTHER HEALTH DEPT MONOTYPE CASTER OFFICE 81210 Mary HANDY OUTPATIEN 8 8 LEANDRA Messer T VISIT 5 PSC MINUTES HOME [facility], 8 8 DIST OTHER HEALTH DEPT MONOTYPE CASTER HOME [facility], 8 8 HOME OUTPATIEN HEALTH T AGENCY HOME [facility], 8 8 DIST OTHER HEALTH DEPT MONOTYPE CASTER HOME [facility], 8 8 DIST OTHER HEALTH DEPT MONOTYPE CASTER HOME [facility], 8 8 HOME OUTPATIEN HEALTH T AGENCY OFFICE 86350 Mary HANDY OUTMARLYS 8 8 LEANDRA Messer T VISIT PSC 15 MINUTES HOSPITAL [facility] - 8 8 [facility] OUT[facility]EN INC T EMERGENCY 51343 JEEVAN ORTIZ, 8 8 [facility] DEPARTMEN CORPORATI O T VISIT ON MODERATE SEVERITY EMERGENCY 05495 [facility] 8 8 [facility] INC T VISIT HIGH/URGE NT SEVERITY [facility], 8 8 DIST OTHER HEALTH DEPT [facility]OTYPE [facility], 8 8 DIST OTHER HEALTH DEPT MONOTYPE CASTER OFFICE 05673 Mary HANDY 8 8 LEANDRA Messer T VISIT PSC 15 MINUTES HOME [facility], 8 8 HOME OUTPATIEN HEALTH T AGENCY [facility], 8 8 DIST OTHER HEALTH DEPT MONOTYPE CASTER [facility], 8 8 HOME OUTPATIEN HEALTH T AGENCY [facility], 8 8 DIST OTHER HEALTH DEPT MONOTYPE CASTER OFFICE 30732 [facility] 8 8 HEALTH CO HEALTH T V[facility]IT [facility] 10 BANK ACCT MINUTES HOME COUNTS INCLUDE 234 BEDS AT THE [facility] HEALTH, 8 8 DIST OTHER HEALTH DEPT MONOTYPE [facility], 8 8 HOME OUTPATIEN HEALTH T AGENCY OFFICE 26322 [facility] T VISIT [facility] 15 BANK ACCT MINUTES HOME [facility], 8 8 DIST OTHER HEALTH DEPT MONOTYPE CASTER HOME COUNTS INCLUDE 234 BEDS AT THE [facility] [employer] [facility], 8 8 HOME OUTPATIEN HEALTH T AGENCY [facility], 8 8 DIST OTHER HEALTH DEPT MONOTYPE CASTER
--- OUTSIDE RECORDS SUMMARY | 2016-12-16 18:27 | External Medical Summary Rpt ---
Author Author , Organization [employer] Address Unknown Phone Unavailable Care Team Providers Care Founder And Chief Executive Officer Name Role Phone ALBA STODDARD, Unavailable Unavailable ALBA STODDARD ANTONIO, Unavailable Unavailable [facility] Unavailable Unavailable SERVICE, [facility] Unavailable Unavailable CENTERS, [facility] Unavailable Unavailable INC, [facility] Unavailable Unavailable CENTER, [facility] Unavailable Unavailable CARE, [facility] Unavailable Unavailable INC, [facility] KIT RICHTER, Unavailable Unavailable KIT RICHTER [facility] Unavailable Unavailable [facility], [facility] Unavailable Unavailable HOLDING, [facility] M E D SUPPLIES, M E D Unavailable Unavailable SUPPLIES YONY BURRIS, Unavailable Unavailable YONY BURRIS STEPHEN A, Unavailable Unavailable ALBA MANLEY MARC D, Unavailable Unavailable FLAKITA LEAL [facility] Unavailable Unavailable ASSOCIATES,[facility], [facility] DAMASO ALMANZAR, Unavailable Unavailable DAMASO ALMANZAR BABATUNDE O, Unavailable Unavailable BARNEY ORTIZ [facility] Unavailable Unavailable [facility], 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 [facility] Unavailable Unavailable AGENCY, [facility] Taurus Vázquez Unavailable Unavailable III , Taurus Vázquez III Mary MATIAS, LEANDRA, Unavailable Unavailable A C Purpose Continuity of Care Document - 08-20-2007 through 2016 Problems Code Diagnosis DOS Provider Status 250.00 250.00 DIAB 01-31-2013 [facility], [facility] Hospital II OR UNSPEC TYPE, NOT UNCNTRLD 401.9 401.9 06-15-2013 Ramandeep HYPERTENSIO [facility] N NOS Hospital 729.81 729.81 01-31-2013 Ramandeep SWELLING OF [facility] LIMB Hospital 780.39 780.39 01-31-2013 Ramandeep OTHER [facility] CONVULSIONS Hospital V12.54 V12.54 01-31-2013 Ramandeep PERSONAL HX [facility] OF TIA,& Hospital CEREBRAL INFARCTION W/OUT RES DEFICITS V58.61 V58.61 01-31-2013 Ramandeep ANTICOAGULA [facility] NTS,LT,[facility] Hospital ENT USE V58.69 V58.69 OTH 01-31-2013 Ramandeep MED,LT,Health system ENT USE Hospital 25358 DIAB W/O 11-11-2009 M E D MENTION SUPPLIES COMP TYPE II/UNS TYPE UNCNTRL 64942 UNSPECIFIED 11-10-2009 [facility] INCONTINENC CENTERS E 4389 UNSPEC LATE 11-07-2009 [facility] EFF HEALTH CEREBRVASC AGENCY DZ DUE CEREBRVASC DZ 7197 DIFFICULTY 11-07-2009 [facility] IN WALKING HEALTH AGENCY 77858 OTHER 11-07-2009 [facility] MALAISE AND HEALTH FATIGUE AGENCY 437 OTHER 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[facility] CEREBROVASC ULAR DISEASE 5950 ACUTE 10-24-2009 [facility]STITIS [facility] 50671 INCOMPLETE 10-24-2009 [facility] BLADDER [facility] EMPTYING INC 4019 UNSPECIFIED 10-17-2009 [facility] DE[facility] HYPERTENSIO 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 N 496 CHRONIC 10-17-2009 [facility] DEPT OBSTRUCTION 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 NEC 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MEL, OSIS OF FLAKITA Penaloza NAIL 7295 PAIN IN 10-07-2009 MEL, SOFT FLAKITA Penaloza TISSUES OF LIMB 99121 DIAB W/O 08-02-2009 [facility] COMP TYPE AMERIC II/UNS NOT HOLDING STATED UNCNTRL 94156 OTH FORM 08-02-2009 [facility] EPILEPSY & AMERIC RECUR HOLDING SEIZUR NO INTRACT EPIL 4011 ESSENTIAL 08-02-2009 [facility] HYPERTENSIO AMERIC N, BENIGN HOLDING 4659 ACUTE URIS 08-02-2009 Mary COATS PSC UNSPECIFIED SITE V5861 LONG-TERM 08-02-2009 Mary MOBLEY (CURRENT) PSC USE OF ANTICOAGULA NTS 5990 URINARY 08-01-2009 [facility] TRACT AMERIC INFECTION HOLDING SITE NOT SPECIFIED 86999 UNSPECIFIED 06-29-2009 [facility] N V0481 NEED 06-01-2009 [facility] C[facility] VACCINATION &INOCULATIO N FLU 2724 OTHER AND 05-26-2009 [facility] UNSPECIFIED [facility] HYPERLIPIDE ROXANNA 47436 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 436 ACUTE BUT 12-03-2008 [facility] ILL-DEFINED [facility] CEREBROVASC ULAR DISEASE 01168 OTHER 11-24-2008 Mary MOBLEY CONVULSIONS PSC E9479 UNSPEC 11-24-2008 [facility] RX/MEDICINA AMERIC L SBST[place] [address] MALIG HTN 10-08-2008 [facility], [facility] HEART FAIL 4589 UNSPECIFIED 10-08-2008 [facility] 4660 ACUTE 10-08-2008 PROST[facility]& BRONCHITIS ORTHOTIC [facility], [facility] 3320 PARALYSIS 10-01-2008 [facility] AGITANS HEALTH AGENCY 5964 ATONY OF 10-01-2008 [facility] BLADDER HEALTH AGENCY V5789 OTHER 10-01-2008 [facility] SPECIFIED HEALTH REHABILITAT AGENCY ION PROCEDURE OTHER 72317 UNSPECIFIED 07-13-2008 [facility]ION [facility] OF URINE CENTERS 7802 SYNCOPE AND 02-24-2008 Mary MOBLEY COLLAPSE PSC 7804 DIZZINESS 02-23-2008 [facility] GIDDINESS SERVICE V653 DIETARY 01-21-2008 [facility] SURVEILLANC HEALTH E AND [facility]ENTRAL COUNSELING BANK ACCT V7791 SCREENING 11-06-2007 [facility]/CO FOR LIPOID HEALTH DISORDERS CENTRAL BANK ACCT 7806 FEVER & OTH 09-02-2007 [facility] DISTURBANCE S TEMP [...] Given on t er Refuse d IIV3 [facility] No VACCIN [facility] 0.5 ML DOSAGE IM USE IIV3 FRIONA No VACCIN 2008 [facility] 0.5 ML DOSAGE IM USE IIV3 FRIONA No VACCIN 2007 [facility] [...] DAY CARE S5100 [facility] 0 [facility] ADULT; ELDER ELDER PER 15 CARE CARE MINUTES DAY CARE S5100 [facility] 0 [facility] ADULT; ELDER ELDER PER 15 CARE CARE MINUTES DAY CARE S5100 [facility] 0 [facility] ADULT; ELDER ELDER PER 15 CARE CARE [...] DAY CARE S5100 [facility] 0 [facility] ADULT; ELDER ELDER PER 15 CARE CARE MINUTES DAY CARE S5100 [facility] 0 [facility] ADULT; ELDER ELDER PER 15 CARE CARE MINUTES DAY CARE S5100 [facility] 0 [facility] ADULT; ELDER ELDER PER 15 CARE CARE MINUTES ADLT SZD T4528 [facility] INCONT HEALTH HEALTH PROD AGENCY AGENCY UNDWEAR XTRA LG EA INCONTINE T4541 [facility] NCE 0 HOME HOME PRODUCT HEALTH HEALTH DISPOSABL AGENCY AGENCY E UNDPAD LARGE EA DAY CARE S5100 [facility] 0 [facility] ADULT; ELDER ELDER PER 15 CARE CARE MINUTES DAY CARE S5100 [facility] 0 [facility] ADULT; ELDER ELDER PER 15 CARE CARE MINUTES DAY CARE S5100 [facility] 0 [facility] ADULT; ELDER ELDER PER 15 CARE CARE MINUTES DAY CARE S5100 [facility] 0 [facility] ADULT; ELDER ELDER PER 15 CARE CARE MINUTES DAY CARE S5100 [facility] 0 [facility] ADULT; ELDER ELDER PER 15 CARE CARE MINUTES [facility] 25806 [facility] LTY STDY 0 [facility] ANTIMICRB INC INC IAL MICRO/AGA R DILUTJ CULTURE 78484 [facility] BACTERIAL 0 [facility] INC INC QUANTTATI VE COLONY COUNT URINE CULTURE 23136 [facility] BCT 0 [facility] ISOL&PRSM INC INC PTV ID ISOLATE EA URINE DAY CARE S5100 [facility] 0 [facility] ADULT; ELDER ELDER PER 15 CARE CARE MINUTES DAY CARE S5100 [facility] 0 [facility] ADULT; ELDER ELDER PER 15 CARE CARE MINUTES DAY CARE S5100 [facility] 0 [facility] ADULT; ELDER ELDER PER 15 CARE CARE MINUTES DAY CARE S5100 [facility] 0 [facility] ADULT; ELDER ELDER PER 15 CARE CARE MINUTES DAY CARE S5100 [facility] 0 [facility] ADULT; ELDER ELDER PER 15 CARE CARE MINUTES DAY CARE S5100 [facility]EE [facility] 0 [facility] ADULT; ELDER ELDER PER 15 CARE CARE MINUTES DAY CARE S5100 [facility] 0 [facility] ADULT; ELDER ELDER PER 15 CARE CARE MINUTES DAY CARE S5100 [facility] SERVICES 0 [facility] ADULT; ELDER ELDER PER 15 CARE CARE MINUTES INTERMIT A4351 [facility] SENA 0 [facility] CATH; E CENTERS E CENTERS STRAIGHT TIP W/WO COAT DAY CARE S5100 [facility] 0 [facility] ADULT; ELDER ELDER PER 15 CARE CARE MINUTES DAY CARE S5100 [facility] 0 [facility] ADULT; ELDER ELDER PER 15 CARE CARE MINUTES DAY CARE S5100 [facility] SERVICES 0 [facility] ADULT; ELDER ELDER PER 15 CARE CARE MINUTES DAY CARE S5100 [facility] 0 [facility] ADULT; ELDER ELDER PER 15 CARE CARE MINUTES DAY CARE S5100 [facility] SERVICES 0 [facility] ADULT; ELDER ELDER PER 15 CARE CARE MINUTES DAY CARE S5100 [facility] SERVICES 0 [facility] ADULT; ELDER ELDER PER 15 CARE CARE MINUTES ADLT SZD T4528 [facility] HOME HOME INCONT HEALTH HEALTH PROD AGENCY AGENCY UNDWEAR XTRA LG EA DAY CARE S[address] ADULT; ELDER ELDER PER 15 CARE CARE MINUTES DAY CARE S5[address] ADULT; ELDER ELDER PER 15 CARE CARE MINUTES DAY CARE S5[address] ADULT; ELDER ELDER PER 15 CARE CARE MINUTES DAY CARE S5[address] ADULT; ELDER ELDER PER 15 CARE CARE MINUTES DAY CARE S5[address] ADULT; ELDER ELDER PER 15 CARE CARE MINUTES DAY CARE S5[address] ADULT; ELDER ELDER PER 15 CARE CARE MINUTES INJ J0702 Mary MANLEY BETAMETHA 9 LEANDRA Hernandez SONE PSC ACETATE & PHOSPHATE 3 MG COLLECTIO 99907 Mary MANLEY N VENOUS 9 LEANDRA Hernandez BLOOD PSC VENIPUNCT URE IM ADM 05034 Mary MANLEY PRQ ID 9 LEANDRA Hernandez SUBQ/IM PSC NJXS 1 VACCINE BASIC 02478 [facility] METABOLIC 9 AMERIC AMERIC PANEL HOLDING HOLDING CALCIUM TOTAL GLUCOSE 80744 Mary MANLEY QUANTITAT 9 LEANDRA Hernandez TAYLER BLOOD PSC XCPT REAGENT STRIP HEMOGLOBI 93057 Mary MANLEY N 9 LEANDRA Hernandez GLYCOSYLA PSC SUSAN A1C PROTHROMB 93101 Mary MANLEY IN TIME 9 LEANDRA Hernandez PSC DRUG 79271 [facility] ASSAY 9 AMERIC AMERIC VALPROIC HOLDING HOLDING DIPROPYLA CETIC ACID TOTAL SUSCEPTIB 06953 [facility] LTY STDY 9 AMERIC AMERIC ANTIMICRB HOLDING HOLDING IAL MICRO/AGA R DILUTJ URINLS 18026 PHYLICIA MCGREGOR 9 LEANDRA WHITESIDE DAMASO STICK/TAB PSC LET REAGNT NON-AUTO MICRSCPY DAY CARE S[address] ADULT; ELDER ELDER PER 15 CARE CARE MINUTES CUL BACT 49421 [facility] AEROBIC 9 AMERIC AMERIC ADDL HOLDING HOLDING METHS DEFINITIV E EA ISOL CULTURE 45899 [facility] BACTERIAL 9 AMERIC AMERIC HOLDING HOLDING QUANTTATI VE COLONY COUNT URINE CULTURE 29115 [facility] BCT 9 AMERIC AMERIC ISOL&PRSM HOLDING HOLDING PTV ID ISOLATE EA URINE DAY CARE S[address] ADULT; ELDER ELDER PER 15 CARE CARE MINUTES DAY CARE S5[address] ADULT; ELDER ELDER PER 15 CARE CARE MINUTES DAY CARE S5[address] ADULT; ELDER ELDER PER 15 CARE CARE MINUTES DAY CARE S5[address] ADULT; ELDER ELDER PER 15 CARE CARE MINUTES ADLT SZD T4528 [facility] 9 HOME HOME INCONT HEALTH HEALTH PROD AGENCY AGENCY UNDWEAR XTRA LG EA DEBRIDEME 51038 PAWSAT, PAWSAT, NT NAIL 9 FLAKITA Penaloza ANY METHOD 6/> DAY CARE S5[address] ADULT; ELDER ELDER PER 15 CARE CARE MINUTES DAY CARE S5[address] ADULT; ELDER ELDER PER 15 CARE CARE MINUTES INTERMIT A4351 [facility] 9 [facility] C[facility]; E CENTERS E CENTERS STRAIGHT TIP W/WO COAT EA DAY CARE S5[address] ADULT; ELDER ELDER PER 15 CARE CARE MINUTES DAY CARE S5[address] ADULT; ELDER ELDER PER 15 CARE CARE MINUTES DAY CARE S5[address] ADULT; ELDER ELDER PER 15 CARE CARE MINUTES DAY CARE S5[address] ADULT; ELDER ELDER PER 15 CARE CARE MINUTES DAY CARE S5[address] ADULT; ELDER ELDER PER 15 CARE CARE MINUTES DAY CARE S5[address] ADULT; ELDER ELDER PER 15 CARE CARE MINUTES DAY CARE S5[address] ADULT; ELDER ELDER PER 15 CARE CARE MINUTES DAY CARE S5100 [facility] 9 [facility] ADULT; ELDER ELDER PER 15 CARE CARE MINUTES DAY CARE S5100 [facility] 9 [facility] ADULT; ELDER ELDER PER 15 CARE CARE MINUTES DAY CARE S5100 [facility] 9 [facility] ADULT; ELDER ELDER PER 15 CARE CARE MINUTES DAY CARE S5100 RAMANDEEP SABILL[facility] 9 [facility] ADULT; ELDER ELDER PER 15 CARE CARE MINUTES DAY CARE S5100 [facility] S[facility] [address] ADULT; ELDER ELDER PER 15 CARE CARE MINUTES DAY CARE S5100 [facility] 9 [facility] ADULT; ELDER ELDER PER 15 CARE CARE MINUTES DAY CARE S5100 RAMAN[facility]EP SABILL[facility] 9 [facility] ADULT; ELDER ELDER PER 15 CARE CARE MINUTES INCONTINE T4541 [facility] NCE 9 HOME HOME PRODUCT HEALTH HEALTH DISPOSABL AGENCY AGENCY E UNDPAD LARGE EA DAY CARE S5100 [facility]EP S[facility] 9 [facility] ADULT; ELDER ELDER PER 15 CARE CARE MINUTES DAY CARE S5100 RAM[facility]EP SABILL[facility] 9 [facility] ADULT; ELDER ELDER PER 15 CARE CARE MINUTES IIV3 55128 [facility] VACCINE 9 [facility] CENTER VIRUS 0.5 ML DOSAGE IM USE ADMINISTR G0008 [facility] ATION OF 9 [facility] IN[facility] CENTER VIRUS VACCINE ADLT SZD T4528 [facility] 9 HOME HOME INCONT HEALTH HEALTH PROD AGENCY AGENCY UNDWEAR XTRA LG EA DAY CARE S5100 [facility] SAB[facility] 9 [facility] ADULT; ELDER ELDER PER 15 CARE CARE MINUTES BASIC 03385 [facility] METABOLIC 9 [facility] PANEL INC INC CALCIUM TOTAL DAY CARE S5100 [facility] 9 [facility] ADULT; ELDER ELDER PER [place] [address] [facility] THYROID 9 [facility] STIMULATI INC INC NG HORMONE TSH COLLECTIO 58505 [facility] N VENOUS 9 [facility] BLOOD INC INC VENIPUNCT URE INTERMIT A4351 [facility]; E CENTERS E CENTERS STRAIGHT TIP W/WO COAT EA DAY CARE S[address] ADULT; ELDER ELDER PER 15 CARE CARE MINUTES DAY CARE S[address] ADULT; ELDER ELDER PER 15 CARE CARE MINUTES DAY CARE S[address] ADULT; ELDER ELDER PER 15 CARE CARE MINUTES DAY CARE S[address] ADULT; ELDER ELDER PER 15 CARE CARE MINUTES DAY CARE S5[address] ADULT; ELDER ELDER PER 15 CARE CARE MINUTES DAY CARE S[address] ADULT; ELDER ELDER PER 15 CARE CARE MINUTES DAY CARE S5[address] ADULT; ELDER ELDER PER 15 CARE CARE MINUTES DAY CARE S[address] ADULT; ELDER ELDER PER 15 CARE CARE MINUTES IIV3 54997 [facility] VACCINE 9 [facility] C[facility] VIRUS 0.5 ML DOSAGE IM USE [...] ADMINISTR G0008 [facility]EP [facility] ATION OF 9 [facility] INFLUENZA CENTER CENTER VIRUS VACCINE DAY CARE S[address] ADULT; ELDER ELDER PER 15 CARE CARE MINUTES DAY CARE S[address] ADULT; ELDER ELDER PER 15 CARE CARE MINUTES DAY CARE S5[address] ADULT; ELDER ELDER PER 15 CARE CARE MINUTES DAY CARE S5100 [place] [address] [place] ADULT; ELDER ELDER PER 15 CARE CARE MINUTES DAY CARE S5100 [facility] [address] ADULT; ELDER ELDER PER 15 CARE CARE MINUTES DAY CARE S[address] ADULT; ELDER ELDER PER 15 CARE CARE MINUTES DAY CARE S5100 [facility] [address] ADULT; ELDER ELDER PER 15 CARE CARE MINUTES DAY CARE S5[address] ADULT; ELDER ELDER PER 15 CARE CARE MINUTES DAY CARE S5100 RAM[facility]EP [address] ADULT; ELDER ELDER PER 15 CARE CARE MINUTES DAY CARE S[address] ADULT; ELDER ELDER PER 15 CARE CARE MINUTES INTERMIT A4351 [facility] SENA 9 [facility] CATH; E CENTERS E CENTERS STRAIGHT TIP W/WO COAT EA DAY CARE S5100 RAMAN[facility]EP [address] ADULT; ELDER ELDER PER 15 CARE CARE MINUTES DAY CARE S5100 RAM[facility]EP [address] ADULT; ELDER ELDER PER 15 CARE CARE MINUTES DAY CARE S5100 [facility]EP [address] ADULT; ELDER ELDER PER 15 CARE CARE MINUTES DAY CARE S[address] ADULT; ELDER ELDER PER 15 CARE CARE MINUTES DAY CARE S5100 [facility] [address] ADULT; ELDER ELDER PER 15 CARE CARE MINUTES ADLT SZD T4528 [facility] HEALTH PROD AGENCY AGENCY UNDWEAR XTRA LG EA DAY CARE S5100 RAMANDEEP RAMANDEEP [employer] [address] [place] [address] ADULT; ELDER ELDER PER 15 CARE CARE MINUTES DAY CARE S5100 [facility] [address] ADULT; ELDER ELDER PER 15 CARE CARE MINUTES DAY CARE S[address] ADULT; ELDER ELDER PER 15 CARE CARE MINUTES OPHTH 32593 ROBER, ROBER, MEDICAL 9 KIT A KIT A XM&JOELLE COMPRHNSV ESTAB PT 1/> DAY CARE S5100 RAM[facility]EP SABILL[facility] [address] ADULT; ELDER ELDER PER 15 CARE CARE MINUTES DAY CARE S5100 [facility] S[facility] [address] ADULT; ELDER ELDER PER 15 CARE CARE MINUTES DAY CARE S5100 [facility] S[facility] [address] ADULT; ELDER ELDER PER 15 CARE CARE MINUTES DAY CARE S5100 [facility] S[facility] [address] ADULT; ELDER ELDER PER 15 CARE CARE MINUTES DAY CARE S5100 [facility] S[facility] [address] ADULT; ELDER ELDER PER 15 CARE CARE MINUTES BASIC 34248 [facility] METABOLIC 9 [facility] PANEL INC INC CALCIUM TOTAL COLLECTIO 40716 [facility] N VENOUS 9 [facility] [place] [address] [facility] RETROPERI 9 [facility] HOSP TONEAL INC INC REAL TIME W/IMAGE COMPLETE DAY CARE S5100 [facility] S[facility] [address] ADULT; ELDER ELDER PER 15 CARE CARE MINUTES DAY CARE S5100 [facility] S[facility] [address] ADULT; ELDER ELDER PER 15 CARE CARE MINUTES DAY CARE S5100 RAMANDEEP RAMANDEEP [address] ADULT; ELDER ELDER PER 15 CARE CARE MINUTES DAY CARE S5100 [facility]EP S[facility] [address] ADULT; ELDER ELDER PER 15 CARE CARE MINUTES DAY CARE S5100 [facility]DEEPSHEREE SABILLON [address] ADULT; ELDER ELDER PER 15 CARE CARE MINUTES DAY CARE S5100 [facility] S[facility] [address] ADULT; ELDER ELDER PER 15 CARE CARE MINUTES DAY CARE S5100 [facility]DEEPSHEREE SABILLON [address] ADULT; ELDER ELDER PER 15 CARE CARE MINUTES DAY CARE S5100 RAM[facility]DEEPSHEREE SABILLON [address] ADULT; ELDER ELDER PER 15 CARE CARE MINUTES DAY CARE S5100 RAMAN[facility]EP RAMANDEEP [address] ADULT; ELDER ELDER PER 15 CARE CARE MINUTES DAY CARE S5100 RAMANDEEP RAMANDEEP [address] ADULT; ELDER ELDER PER 15 CARE CARE MINUTES DAY CARE S5100 RAM[facility]DEEPSHEREE SABILL[facility] [address] ADULT; ELDER ELDER PER 15 CARE CARE MINUTES DIAB ONLY A5500 [facility] FIT CSTM 9 [facility] PREP&SPL PROSTH PROSTH SHOE MX INC INC DNSITY INSRT ADD LW [id number] [facility] EXT 9 [facility]ACE VARUS/TARI PROSTH PROSTH ROBERTA WILMER INC INC STRAP PAD/LINE PAD TRANS L3620 [facility] ORTHOS 1 9 [facility] SHOE-ANOT PROSTH PROSTH HER SLD INC INC STIRRUP EXISTING REPAIR L4205 [facility] ORTHOTIC 9 [facility] BRACE DEVC PROSTH PROSTH LABOR INC INC COMPONENT PER 15 MIN DAY CARE S[address] ADULT; ELDER ELDER PER 15 CARE CARE MINUTES DAY CARE S[address] ADULT; ELDER ELDER PER 15 CARE CARE MINUTES DAY CARE S5[address] ADULT; ELDER ELDER PER 15 CARE CARE MINUTES DAY CARE S[address] ADULT; ELDER ELDER PER 15 CARE CARE MINUTES DAY CARE S[address] ADULT; ELDER ELDER PER 15 CARE CARE MINUTES ADLT SZD T4528 [facility] 9 HOME HOME [facility] PROD AGENCY AGENCY UNDWEAR XTRA LG EA DAY CARE S[address] ADULT; ELDER ELDER PER 15 CARE CARE MINUTES INTERMIT A4351 [facility] O[facility] URIN 9 [employer] HEALTHCAR CATH; E CENTERS E CENTERS STRAIGHT TIP W/WO COAT EA URINLS 89568 A C SINDHU, DIP 9 LEANDRA Hernandez STICK/TAB PSC LET REAGNT NON-AUTO MICRSCPY CULTURE 87075 LAB [facility] LAB ANIK[facility] BACTERIAL 9 AMERIC AMERIC HOLDING HOLDING QUANTTATI VE COLONY COUNT URINE DAY CARE S[address] ADULT; ELDER ELDER PER 15 CARE CARE MINUTES DAY CARE S[address] ADULT; ELDER ELDER PER 15 CARE CARE MINUTES DAY CARE S5[address] ADULT; ELDER ELDER PER 15 CARE CARE MINUTES DAY CARE S5[address] ADULT; ELDER ELDER PER 15 CARE CARE MINUTES URINLS 11591 A C JENELLE, DIP 9 LEANDRA PETIT STICK/TAB PSC LET REAGNT NON-AUTO MICRSCPY CULTURE 03043 [facility] BACTERIAL 9 [employer] QUANTTATI VE COLONY COUNT URINE CUL BACT 35563 [facility] AEROBIC 9 [employer] ADDL HOLDING HOLDING METHS DEFINITIV E EA ISOL CULTURE 92420 [facility] BCT 9 [employer] AMER[employer] ISOL&PRSM HOLDING HOLDING PTV ID ISOLATE EA URINE SUSCEPTIB 43100 [facility] LTY STDY 9 [employer] ANTIMICRB HOLDING HOLDING IAL MICRO/AGA R DILUTJ DAY CARE S5[address] ADULT; ELDER ELDER PER 15 CARE CARE MINUTES DAY CARE S5[address] ADULT; ELDER ELDER PER 15 CARE CARE MINUTES DAY CARE S5100 [address] ADULT; ELDER ELDER PER 15 CARE CARE MINUTES DAY CARE S5[address] ADULT; ELDER ELDER PER 15 CARE CARE MINUTES DAY CARE S5[address] ADULT; ELDER ELDER PER 15 CARE CARE MINUTES DAY CARE S5[address] ADULT; ELDER ELDER PER 15 CARE CARE MINUTES DAY CARE S5[address] ADULT; ELDER ELDER PER 15 CARE CARE MINUTES DAY CARE S5[address] ADULT; ELDER ELDER PER 15 CARE CARE MINUTES DAY CARE S5[address] ADULT; ELDER ELDER PER 15 CARE CARE MINUTES INTERMIT [id number] OUMAR OUMAR URIN 9 [facility] CATH; E CENTERS E CENTERS STRAIGHT TIP W/WO COAT EA DAY CARE S5[address] ADULT; ELDER ELDER PER 15 CARE CARE MINUTES DAY CARE S5[address] ADULT; ELDER ELDER PER 15 CARE CARE MINUTES DAY CARE S5[address] ADULT; ELDER ELDER PER 15 CARE CARE MINUTES DAY CARE S5100 [facility] [address] [place] [address] ADULT; ELDER ELDER PER 15 CARE CARE MINUTES DAY CARE S5100 [facility] [address] [place] [address] ADULT; ELDER ELDER PER 15 CARE CARE MINUTES DAY CARE S5100 [facility] [address] [place] [address] ADULT; ELDER ELDER PER 15 CARE CARE MINUTES ADLT SZD [id number] [facility]Y AGENCY UNDWEAR XTRA LG EA DAY CARE S5100 [facility] [address] [place] [address] ADULT; ELDER ELDER PER 15 CARE CARE MINUTES DAY CARE S5100 [facility] [address] [place] [address] ADULT; ELDER ELDER PER 15 CARE CARE MINUTES DAY CARE S5100 [facility] [address] [place] [address] ADULT; ELDER ELDER PER 15 CARE CARE MINUTES DAY CARE S[address] [facility] [address] [place] [address] ADULT; ELDER ELDER PER 15 CARE CARE MINUTES DAY CARE S[address] [facility] [address] [place] [address] ADULT; ELDER ELDER PER 15 CARE CARE MINUTES DAY CARE S[address] [facility] [address] [place] [address] ADULT; ELDER ELDER PER 15 CARE CARE MINUTES DAY CARE S[address] [facility] [address] [place] [address] ADULT; ELDER ELDER PER 15 CARE CARE MINUTES DAY CARE S[address] [facility] [address] [place] [address] ADULT; ELDER ELDER PER 15 CARE CARE MINUTES DAY CARE S[address] [facility] [address] [place] [address] ADULT; ELDER ELDER PER 15 CARE CARE MINUTES DAY CARE S[address] [facility] [address] [place] [address] ADULT; ELDER ELDER PER 15 CARE CARE MINUTES DAY CARE S[address] [facility] [address] [place] [address] ADULT; ELDER ELDER PER 15 CARE CARE MINUTES DAY CARE S[address] [facility] [address] [place] [address] ADULT; ELDER ELDER PER 15 CARE CARE MINUTES DAY CARE S5100 [facility] [address] [place] [address] ADULT; ELDER ELDER PER 15 CARE CARE MINUTES DAY CARE S5100 [facility] [address] [place] [address] ADULT; ELDER ELDER PER 15 CARE CARE MINUTES DAY CARE S[address] [facility] [address] [place] [address] ADULT; ELDER ELDER PER 15 CARE CARE MINUTES DAY CARE S5100 RAMANDEEP RAMANDEEP [address] ADULT; ELDER ELDER PER 15 CARE CARE MINUTES DAY CARE S5100 RAMANDEEP RAMANDEEP [address] ADULT; ELDER ELDER PER 15 CARE CARE MINUTES DAY CARE S5100 RAMANDEEP RAMANDEEP [address] ADULT; ELDER ELDER PER 15 CARE CARE MINUTES DAY CARE S5100 RAMANDEEP RAMANDEEP [address] ADULT; ELDER ELDER PER 15 CARE CARE MINUTES TRAPEZE E0940 [facility] TOPETE BAR 9 HOME MED HOME MED FREESTAND EQUIP. EQUIP. [facility] COMPLETE WITH GRAB [facility] HOS BED E0260 YOSELYN TOPETE SEMI-ELEC 9 HOME MED HOME MED W/ANY EQUIP. EQUIP. TYPE SIDE [facility] RAIL W/MATTRSS DAY CARE S[address] ADULT; ELDER ELDER PER 15 CARE CARE MINUTES DAY CARE S[address] ADULT; ELDER ELDER PER 15 CARE CARE MINUTES DAY CARE S[address] ADULT; ELDER ELDER PER 15 CARE CARE MINUTES DAY CARE S[address] ADULT; ELDER ELDER PER 15 CARE CARE MINUTES DAY CARE S[address] ADULT; ELDER ELDER PER 15 CARE CARE MINUTES DAY CARE S[address] ADULT; ELDER ELDER PER 15 CARE CARE MINUTES BASIC 91898 LAB [facility] METABOLIC 9 AMERIC AMERIC PANEL HOLDING HOLDING CALCIUM TOTAL COLLECTIO 25027 Mary HANDY N VENOUS 9 LEANDRA Messer BLOOD PSC VENIPUNCT URE DRUG 49108 LAB [facility] ANIK[facility] ASSAY 9 AMERIC AMERIC VALPROIC HOLDING HOLDING DIPROPYLA CETIC ACID TOTAL PROTHROMB 86738 Mary HANDY IN TIME 9 LEANDRA Messer PSC ADLT SZD T4528 [facility] AGENCY UNDWEAR XTRA LG EA DAY CARE S[address] ADULT; ELDER ELDER PER 15 CARE CARE MINUTES DAY CARE S5[address] ADULT; ELDER ELDER PER 15 CARE CARE MINUTES DAY CARE S5[address] ADULT; ELDER ELDER PER 15 CARE CARE MINUTES DAY CARE S5[address] ADULT; ELDER ELDER PER 15 CARE CARE MINUTES URINLS 79576 A Ayde MOBLEY, A DIP 9 LEANDRA WHITESIDE C STICK/TAB PSC LET REAGNT NON-AUTO MICRSCPY INCONTINE T4541 [facility] N[facility] 9 HOME HOME PRODUCT HE[facility] HEALTH DISPOSABL AGENCY AGENCY E UNDPAD LARGE EA DAY CARE S[address] ADULT; ELDER ELDER PER 15 CARE CARE MINUTES DAY CARE S5[address] ADULT; ELDER ELDER PER 15 CARE CARE MINUTES DAY CARE S5[address] ADULT; ELDER ELDER PER 15 CARE CARE MINUTES DAY CARE S[address] ADULT; ELDER ELDER PER 15 CARE CARE MINUTES TRAPEZE E0940 YOSELYN SCHROEDER 9 HOME MED HOME MED FREESTAND EQUIP. EQUIP. [facility] COMPLETE WITH GRAB [facility] HOS BED E0260 YOSELYN TOPETE SEMI-ELEC 9 HOME MED HOME MED W/ANY EQUIP. EQUIP. TYPE SIDE [facility] RAIL W/MATTRSS DAY CARE S[address] ADULT; ELDER ELDER PER 15 CARE CARE MINUTES DAY CARE S5[address] ADULT; ELDER ELDER PER 15 CARE CARE MINUTES DAY CARE S5[address] ADULT; ELDER ELDER PER 15 CARE CARE MINUTES DAY CARE S5[address] ADULT; ELDER ELDER PER 15 CARE CARE MINUTES DAY CARE S5[address] ADULT; ELDER ELDER PER 15 CARE CARE MINUTES DAY CARE S5[address] ADULT; ELDER ELDER PER 15 CARE CARE MINUTES DAY CARE S5[address] ADULT; ELDER ELDER PER 15 CARE CARE MINUTES DAY CARE S5[address] ADULT; ELDER ELDER PER 15 CARE CARE MINUTES DAY CARE S5[address] ADULT; ELDER ELDER PER 15 CARE CARE MINUTES DAY CARE S5[address] ADULT; ELDER ELDER PER 15 CARE CARE MINUTES DAY CARE S5[address] ADULT; ELDER ELDER PER 15 CARE CARE MINUTES CULTURE 57901 LAB [facility] BCT 9 AMERIC AMERIC ISOL&PRSM HOLDING HOLDING PTV ID ISOLATE EA URINE CUL BACT 11781 LAB [facility] AEROBIC 9 AMERIC AMERIC ADDL HOLDING HOLDING METHS DEFINITIV E EA ISOL CULTURE 83820 LAB ANIK[facility] LAB [facility] BACTERIAL 9 AMERIC AMERIC HOLDING HOLDING QUANTTATI VE COLONY COUNT URINE SUSCEPTIB 62779 LAB [facility] LAB ANIK[facility] LTY STDY 9 AMERIC AMERIC ANTIMICRB HOLDING HOLDING IAL MICRO/AGA R DILUTJ DAY CARE S[address] ADULT; ELDER ELDER PER 15 CARE CARE MINUTES URINLS 11524 A Mary SMITH DIP 9 LEANDRA WHITESIDE C STICK/TAB PSC LET REAGNT NON-AUTO MICRSCPY DAY CARE S[address] ADULT; ELDER ELDER PER 15 CARE CARE MINUTES DAY CARE S5[address] ADULT; ELDER ELDER PER 15 CARE CARE MINUTES DAY CARE S5[address] ADULT; ELDER ELDER PER 15 CARE CARE MINUTES CERVICAL L0172 PROSTHETI PROSTHETI COLLAR 9 C&ORTHOTI C&ORTHOTI SEMI-RIGI C C D FOAM ASSOCIATE ASSOCIATE TWO [employer] S,LLC PREFAB DAY CARE S[address] ADULT; ELDER ELDER PER 15 CARE CARE MINUTES DAY CARE S5[address] ADULT; ELDER ELDER PER 15 CARE CARE MINUTES TRAPEZE E0940 YOSELYN SCHROEDER 9 HOME MED HOME MED FREESTAND EQUIP. E[facility]. [facility] COMPLETE WITH [facility] E0260 YOSELYN TOPETE SEMI-ELEC 9 HOME MED HOME MED W/ANY EQUIP. EQUIP. TYPE SIDE [facility] RAIL W/MATTRSS DAY CARE S[address] ADULT; ELDER ELDER PER 15 CARE CARE MINUTES ADLT SZD T4528 [facility] 9 HOME HOME INCONT HEALTH HEALTH PROD AGENCY AGENCY UNDWEAR XTRA LG EA DAY CARE S[address] ADULT; ELDER ELDER PER 15 CARE CARE MINUTES DAY CARE S5[address] ADULT; ELDER ELDER PER 15 CARE CARE MINUTES DAY CARE S5[address] ADULT; ELDER ELDER PER 15 CARE CARE MINUTES DAY CARE S5[address] ADULT; ELDER ELDER PER 15 CARE CARE MINUTES URINLS 36145 Mary MOBLEY, Mary DIP 9 LEANDRA Messer STICK/TAB PSC LET REAGNT NON-AUTO MICRSCPY INTERMIT A4351 [facility]AR URIN 9 [facility] CATH; E CENTERS E CENTERS STRAIGHT TIP W/WO COAT EA DAY CARE S[address] ADULT; ELDER ELDER PER 15 CARE CARE MINUTES DAY CARE S5[address] ADULT; ELDER ELDER PER 15 CARE CARE MINUTES DAY CARE S5[address] ADULT; ELDER ELDER PER 15 CARE CARE MINUTES DAY CARE S5[address] ADULT; ELDER ELDER PER 15 CARE CARE MINUTES DAY CARE S5[address] ADULT; ELDER ELDER PER 15 CARE CARE MINUTES DAY CARE S5[address] ADULT; ELDER ELDER PER 15 CARE CARE MINUTES DAY CARE S5[address] ADULT; ELDER ELDER PER 15 CARE CARE MINUTES SUSCEPTIB 22049 LAB [facility] AN[facility] LTY STDY 9 AMERIC AMERIC ANTIMICRB HOLDING HOLDING IAL MICRO/AGA R DILUTJ CULTURE 42024 LAB AN[facility] LAB AN[facility] BCT 9 AMERIC AMERIC ISOL&PRSM HOLDING HOLDING PTV ID ISOLATE EA URINE CULTURE 92159 LAB [facility] LAB [facility] BACTERIAL 9 AMERIC AMERIC HOLDING HOLDING QUANTTATI VE COLONY COUNT URINE CUL BACT 35734 LAB AN[facility] LAB AN[facility] AEROBIC 9 AMERIC AMERIC ADDL HOLDING HOLDING METHS DEFINITIV E EA ISOL URINLS 37635 Mayr HANDY DIP 9 LEANDRA Messre STICK/TAB PSC LET REAGNT NON-AUTO MICRSCPY TRAPEZE E0940 [facility] YOSELYN BAR 9 HOME MED HOME MED FREESTAND EQUIP. EQUIP. [facility] COMPLETE WITH GRAB BAR HOS BED E0260 Y[facility]N YOSELYN SEMI-ELEC 9 HOME MED HOME MED W/ANY EQUIP. EQUIP. TYPE SIDE [facility] RAIL W/MATTRSS DAY CARE S[address] ADULT; ELDER ELDER PER 15 CARE CARE MINUTES DAY CARE S[address] ADULT; ELDER ELDER PER 15 CARE CARE MINUTES DAY CARE S5[address] ADULT; ELDER ELDER PER 15 CARE CARE MINUTES DAY CARE S5[address] ADULT; ELDER ELDER PER 15 CARE CARE MINUTES DAY CARE S5[address] ADULT; ELDER ELDER PER 15 CARE CARE MINUTES DAY CARE S5[address] ADULT; ELDER ELDER PER 15 CARE CARE MINUTES DAY CARE S[address] ADULT; ELDER ELDER PER 15 CARE CARE MINUTES INTERMIT A4351 [facility]Y [facility]; E CENTERS E CENTERS STRAIGHT TIP W/WO COAT EA DAY CARE S[address] ADULT; ELDER ELDER PER 15 CARE CARE MINUTES DAY CARE S[address] ADULT; ELDER ELDER PER 15 CARE CARE MINUTES ADLT SZD T4528 [facility] 9 HOME HOME INCONT HEALTH HEALTH PROD AGENCY AGENCY UNDWEAR XTRA LG EA DAY CARE S[address] ADULT; ELDER ELDER PER 15 [...] CALIBRATO R SOLUTION/ CHIPS DAY CARE S5[address] ADULT; ELDER ELDER PER 15 CARE CARE MINUTES DAY CARE S5[address] ADULT; ELDER ELDER PER 15 CARE CARE MINUTES DAY CARE S5[address] ADULT; ELDER ELDER PER 15 CARE CARE MINUTES DAY CARE S5[address] ADULT; ELDER ELDER PER 15 CARE CARE MINUTES SUSCEPTIB 17099 LAB [facility] LAB ANIK[facility] LTY STDY 8 AMERIC AMERIC ANTIMICRB HOLDING HOLDING IAL MICRO/AGA R DILUTJ CULTURE 43890 LAB ANIK[facility] LAB ANIKA BCT 8 AMERIC AMERIC ISOL&PRSM HOLDING HOLDING PTV ID ISOLATE EA URINE CUL BACT 03541 LAB ANIK[facility] LAB ANIKA AEROBIC 8 AMERIC AMERIC ADDL HOLDING HOLDING METHS DEFINITIV E EA ISOL CULTURE 08871 LAB ANIKA LAB ANIK[facility] BACTERIAL 8 AMERIC AMERIC HOLDING HOLDING QUANTTATI VE COLONY COUNT URINE TRAPEZE E0940 YOSELYN SCHROEDER 8 HOME MED HOME MED FREESTAND EQUIP. EQUIP. [facility] COMPLETE WITH GRAM[facility] DAY CARE S[address] ADULT; ELDER ELDER PER 15 CARE CARE MINUTES HOS BED E0260 YOSELYN TOPETE SEMI-ELEC 8 HOME MED HOME MED W/ANY EQUIP. EQUIP. TYPE SIDE [facility] RAIL W/MATTRSS DAY CARE S[address] ADULT; ELDER ELDER PER 15 CARE CARE MINUTES DAY CARE S5[address] ADULT; ELDER ELDER PER 15 CARE CARE MINUTES DAY CARE S5[address] ADULT; ELDER ELDER PER 15 CARE CARE MINUTES DAY CARE S5[address] ADULT; ELDER ELDER PER 15 CARE CARE MINUTES DAY CARE S5100 [address] ADULT; ELDER ELDER PER 15 CARE CARE MINUTES DAY CARE S5[address] ADULT; ELDER ELDER PER 15 CARE CARE MINUTES DAY CARE S5[address] ADULT; ELDER ELDER PER 15 CARE CARE MINUTES DAY CARE S5[address] ADULT; ELDER ELDER PER 15 CARE CARE MINUTES DAY CARE S5[address] ADULT; ELDER ELDER PER 15 CARE CARE MINUTES INTERMIT A4351 O[facility]AR SENA 8 [facility] CATH; E CENTERS E CENTERS STRAIGHT TIP W/WO COAT EA DAY CARE S5[address] ADULT; ELDER ELDER PER 15 CARE CARE MINUTES DAY CARE S5100 [address] ADULT; ELDER ELDER PER 15 CARE CARE MINUTES DAY CARE S5100 [address] ADULT; ELDER ELDER PER 15 CARE CARE MINUTES DAY CARE S5100 [address] ADULT; ELDER ELDER PER 15 CARE CARE MINUTES DAY CARE S5[address] ADULT; ELDER ELDER PER 15 CARE CARE MINUTES TRAPEZE E0940 YOSELYN SCHROEDER 8 HOME MED HOME MED FREESTAND EQUIP. EQUIP. [facility] BED E0260 YOSELYN TOPETE SEMI-ELEC 8 HOME MED HOME MED W/ANY EQUIP. EQUIP. TYPE SIDE [facility] RAIL W/MATTRSS DAY CARE S5[address] ADULT; ELDER ELDER PER 15 CARE CARE MINUTES DAY CARE S5100 [address] ADULT; ELDER ELDER PER 15 CARE CARE MINUTES DAY CARE S5100 [address] ADULT; ELDER ELDER PER 15 CARE CARE MINUTES DAY CARE S5100 [address] ADULT; ELDER ELDER PER 15 CARE CARE MINUTES DAY CARE S5100 [address] ADULT; ELDER ELDER PER 15 CARE CARE MINUTES ADLT SZD T4528 [facility] 8 HOME HOME [facility] PROD AGENCY AGENCY UNDWEAR XTRA LG EA DAY CARE S5[address] ADULT; ELDER ELDER PER 15 CARE CARE MINUTES DAY CARE S5100 [address] ADULT; ELDER ELDER PER 15 CARE CARE MINUTES DAY CARE S5100 [address] ADULT; ELDER ELDER PER 15 CARE CARE MINUTES DAY CARE S5100 [address] ADULT; ELDER ELDER PER 15 CARE CARE MINUTES DAY CARE S5100 [address] ADULT; ELDER ELDER PER 15 CARE CARE MINUTES DAY CARE S5100 [address] ADULT; ELDER ELDER PER 15 CARE CARE MINUTES URINLS 19573 A Ayde MOBLEY, A DIP 8 LEANDRA Messer STICK/TAB PSC LET REAGNT NON-AUTO MICRSCPY IIV3 97833 RAMANDEEP SAIBLLON VACCINE 8 [facility] SPLIT CENTER CENTER VIRUS 0.5 ML DOSAGE IM USE DAY CARE S[address] ADULT; ELDER ELDER PER 15 CARE CARE MINUTES ADMINISTR G0008 RAMANDEEP SABILLON ATION OF 8 [facility] INFLUENZA CENTER CENTER VIRUS VACCINE DAY CARE S5[address] ADULT; ELDER ELDER PER 15 CARE CARE MINUTES DAY CARE S5100 [address] ADULT; ELDER ELDER PER 15 CARE CARE MINUTES DAY CARE S5100 [address] ADULT; ELDER ELDER PER 15 CARE CARE MINUTES DAY CARE S5100 [address] ADULT; ELDER ELDER PER 15 CARE CARE MINUTES DAY CARE S5100 [address] ADULT; ELDER ELDER PER 15 CARE CARE MINUTES DAY CARE S5100 [address] ADULT; ELDER ELDER PER 15 CARE CARE MINUTES TRAPEZE E0940 YOSELYN SCHROEDER 8 HOME MED HOME MED FREESTAND EQUIP. EQUIP. [facility] COMPLETE WITH ART SCHROEDER SUSCEPTIB 81883 LAB ANIKA LAB ANIKA LTY STDY 8 AMERIC AMERIC ANTIMICRB HOLDING HOLDING IAL MICRO/AGA R DILUTJ CULTURE 01876 LAB AINKA LAB ANIKA BACTERIAL 8 AMERIC AMERIC HOLDING HOLDING QUANTTATI VE COLONY COUNT URINE CUL BACT 70014 LAB ANIKA LAB ANIKA AEROBIC 8 AMERIC AMERIC ADDL HOLDING HOLDING METHS DEFINITIV E EA ISOL CULTURE 33393 LAB ANIKA LAB ANIKA BCT 8 AMERIC AMERIC ISOL&PRSM HOLDING HOLDING PTV ID ISOLATE EA URINE HOS BED E0260 YOSELYN GUAJARDORELL SEMI-ELEC 8 HOME MED HOME MED W/ANY EQUIP. EQUIP. TYPE S[facility] RAIL W/MATTRSS INTERMIT A4351 OUMAR OUMAR URIN 8 [facility]ALTH[facility] CATH; E CENTERS E CENTERS STRAIGHT TIP W/WO COAT EA DAY CARE S5100 [address] ADULT; ELDER ELDER PER 15 CARE CARE MINUTES DAY CARE S5100 [address] ADULT; ELDER ELDER PER 15 CARE CARE MINUTES DAY CARE S5100 [address] ADULT; ELDER ELDER PER 15 CARE CARE MINUTES DAY CARE S5100 [address] ADULT; ELDER ELDER PER 15 CARE CARE MINUTES DAY CARE S5100 [address] ADULT; ELDER ELDER PER 15 CARE CARE MINUTES DAY CARE S5100 [address] ADULT; ELDER ELDER PER 15 CARE CARE MINUTES DAY CARE S5100 [address] ADULT; ELDER ELDER PER 15 CARE CARE MINUTES DAY CARE S5100 [address] ADULT; ELDER ELDER PER 15 CARE CARE MINUTES DAY CARE S5100 [address] ADULT; ELDER ELDER PER 15 CARE CARE MINUTES ADLT SZD T4528 [facility] 8 HOME HOME INCONT HEALTH HEALTH PROD AGENCY AGENCY ROBERTAR XTRA LG EA A4258 M E D M E D WERED 8 SUPPLIES SUPPLIES DEVICE FOR LANCET EACH DAY CARE S5100 [facility] [address] [place] [address] ADULT; ELDER ELDER PER 15 CARE CARE [...] HOME BLD GLU MON-50 DAY CARE S5[address] ADULT; ELDER ELDER PER 15 CARE CARE MINUTES DAY CARE S5100 [address] ADULT; ELDER ELDER PER 15 CARE CARE MINUTES DAY CARE S5100 [address] ADULT; ELDER ELDER PER 15 CARE CARE MINUTES DAY CARE S5100 [address] ADULT; ELDER ELDER PER 15 CARE CARE MINUTES DAY CARE S5100 [address] ADULT; ELDER ELDER PER 15 CARE CARE MINUTES DAY CARE S5100 [address] ADULT; ELDER ELDER PER 15 CARE CARE MINUTES DAY CARE S5100 [address] ADULT; ELDER ELDER PER 15 CARE CARE MINUTES DAY CARE S5100 [address] ADULT; ELDER ELDER PER 15 CARE CARE MINUTES DAY CARE S5100 [address] ADULT; ELDER ELDER PER 15 CARE CARE MINUTES DAY CARE S5100 [address] ADULT; ELDER ELDER PER 15 CARE CARE MINUTES DAY CARE S5100 [address] ADULT; ELDER ELDER PER 15 CARE CARE MINUTES DAY CARE S5100 [address] ADULT; ELDER ELDER PER 15 CARE CARE MINUTES DAY CARE S5100 [address] ADULT; ELDER ELDER PER 15 CARE CARE MINUTES DAY CARE S5100 [address] ADULT; ELDER ELDER PER 15 CARE CARE MINUTES DAY CARE S5100 [address] ADULT; ELDER ELDER PER 15 CARE CARE MINUTES DAY CARE S5100 [address] ADULT; ELDER ELDER PER 15 CARE CARE MINUTES DAY CARE S5100 [address] ADULT; ELDER ELDER PER 15 CARE CARE MINUTES DAY CARE S5100 [address] ADULT; ELDER ELDER PER 15 CARE CARE MINUTES DAY CARE S5100 [address] ADULT; ELDER ELDER PER 15 CARE CARE MINUTES DAY CARE S5100 [address] ADULT; ELDER ELDER PER 15 CARE CARE MINUTES DAY CARE S5100 [address] ADULT; ELDER ELDER PER 15 CARE CARE MINUTES OPHTH 52788 ROBER, ROBER, MEDICAL 8 KIT A KIT A XM&JOELLE COMPRE NEW PT 1/> VST DAY CARE S5[address] ADULT; ELDER ELDER PER 15 CARE CARE MINUTES TRAPEZE E0940 YOSELYN SCHROEDER 8 HOME MED HOME MED FREESTAND EQUIP. EQUIP. [facility] COMPLETE WITH GRAB [facility] HOS BED E0260 YOSELYN TOPETE SEMI-ELEC 8 HOME MED HOME MED W/ANY EQUIP. EQUIP. TYPE SIDE [facility] RAIL W/MATTRSS DAY CARE S[address] ADULT; ELDER ELDER PER 15 CARE CARE MINUTES DAY CARE S5100 [address] ADULT; ELDER ELDER PER 15 CARE CARE MINUTES DAY CARE S5100 [address] ADULT; ELDER ELDER PER 15 CARE CARE MINUTES DAY CARE S5100 [address] ADULT; ELDER ELDER PER 15 CARE CARE MINUTES DAY CARE S5100 [address] ADULT; ELDER ELDER PER 15 CARE CARE MINUTES DAY CARE S5100 [address] ADULT; ELDER ELDER PER 15 CARE CARE MINUTES DAY CARE S5100 [address] ADULT; ELDER ELDER PER 15 CARE CARE MINUTES INTERMIT A4351 OUMAR SENA 8 [facility] CATH; E CENTERS E CENTERS STRAIGHT TIP W/WO COAT EA DAY CARE S5100 RAMANDEEPSHEREE SABILLON [address] ADULT; ELDER ELDER PER 15 CARE CARE MINUTES DAY CARE S5100 RAMANDEEP RAMANDEEP [address] ADULT; ELDER ELDER PER 15 CARE CARE MINUTES DAY CARE S5100 RAMANDEEP RAMANDEEP [address] ADULT; ELDER ELDER PER 15 CARE CARE MINUTES DAY CARE S5100 RAMANDEEPSHEREE SABILLON [address] ADULT; ELDER ELDER PER 15 CARE CARE MINUTES DAY CARE S5100 RAMANDEEP RAMANDEEP [address] ADULT; ELDER ELDER PER 15 CARE CARE MINUTES DAY CARE S5100 RAMANDEEP RAMANDEEP [address] ADULT; ELDER ELDER PER 15 CARE CARE MINUTES DAY CARE S[address] ADULT; ELDER ELDER PER 15 CARE CARE MINUTES ADLT SZD T4528 [facility] HOME HOME INCONT HEALTH HEALTH PROD AGENCY AGENCY UNDWEAR XTRA LG EA INCONTINE T4541 [facility] NCE 8 HOME HOME PRODUCT HEALTH HEALTH DISPOSABL AGENCY AGENCY E UNDPAD LARGE EA DAY CARE S5100 RAMANDEEPSHEREE SABILLON [address] ADULT; ELDER ELDER PER 15 CARE CARE MINUTES DAY CARE S5100 RAMANDEEPSHEREE SABILLON [address] ADULT; ELDER ELDER PER 15 CARE CARE MINUTES DAY CARE S5100 RAMANDEEPSHEREE SABILLON [address] ADULT; ELDER ELDER PER 15 CARE CARE MINUTES TRAPEZE E0940 YOSELYN SCHROEDER 8 HOME MED HOME MED FREESTAND EQUIP. EQUIP. [facility] COMPLETE WITH ART [facility] HOS BED E0260 YOSELYN TOPETE SEMI-ELEC 8 HOME MED HOME MED W/ANY EQUIP. EQUIP. TYPE S[facility] RAIL W/MATTRSS DAY CARE S5100 RAMANDEEPSHEREE SABILLON [address] ADULT; ELDER ELDER PER 15 CARE CARE MINUTES DAY CARE S5100 RAMANDEEP RAMANDEEP [address] ADULT; ELDER ELDER PER 15 CARE CARE MINUTES DAY CARE S5100 RAMANDEEPSHEREE SABILLON [address] ADULT; ELDER ELDER PER 15 CARE CARE MINUTES CREATINE 60446 RAMANDEEP OLSONON KINASE 8 [facility] TOTAL INC INC PROTHROMB 32914 RAMANDEEP SABILLON IN TIME 8 [facility] INC INC DRUG 82947 RAMANDEEP SABILLON ASSAY 8 [facility] VALPROIC INC INC DIPROPYLA CETIC ACID TOTAL [facility]OUND A0425 [facility] [place] [address] RAMANDEEP RAMANDEEP TROPONIN 8 [facility] QUANTITAT INC INC TAYLER BLOOD 92644 RAMANDEEP SABILLON COUNT 8 [facility] COMPLETE INC INC AUTO&AUTO DIFRNTL WBC COMPREHEN 56048 RAMANDEEP SABILLON SIVE 8 [facility] METABOLIC INC INC PANEL CREATINE 01821 RAMANDEEP SABILLON KINASE MB 8 [facility] FRACTION INC INC ONLY ECG 80275 RAMANDEEP STODDARD, ROUTINE 8 [facility] W/LEAST PROF SERV 12 LDS I&R ONLY ECG 96281 RAMANDEEP SABILLON ROUTINE 8 [facility] ECG INC INC W/LEAST 12 LDS TRCG ONLY W/O I&R 3D 80984 [facility] [place], RENDERING 8 MEDICAL YONY P IMAGING W/INTERP& ASSOCIATE POSTPROC S DIFF WORK STATION AMB [id number] [facility] SERVICE 8 AMBULANCE AMBULANCE ALS SERVICE SERVICE EMERGENCY TRANSPORT LEVEL 1 THROMBOPL 65010 RAMANDEEP SABILLON ASTIN 8 [facility] TIME INC INC PARTIAL PLASMA/[place] B[place] [address] [facility] HEAD/BRAI 8 MEDICAL YONY P N W/O IMAGING CONTRAST ASSOCIATE MATERIAL S [place] NFS 21956 RAMANDEEP SABILLON THER 8 [facility] PROPH/DX INC INC 1ST >1 HR DAY CARE S5100 RAMANDEEP SABILLON SERVICES [address] [place] [address] ADULT; ELDER ELDER PER 15 CARE CARE MINUTES DAY CARE S5100 [facility] [address] [place] [address] ADULT; ELDER ELDER PER 15 CARE CARE MINUTES DAY CARE S5100 [facility] [address] [place] [address] ADULT; ELDER ELDER PER 15 CARE CARE MINUTES DAY CARE S5100 [facility] [address] [place] [address] ADULT; ELDER ELDER PER 15 CARE CARE MINUTES BLD GLU A4253 M E D M E D TEST/REAG 8 SUPPLIES SUPPLIES T STRIPS HOME BLD GLU MON-50 DAY CARE S[address] ADULT; ELDER ELDER PER 15 CARE CARE MINUTES DAY CARE S5[address] ADULT; ELDER ELDER PER 15 CARE CARE MINUTES TRAPEZE E0940 [facility] TOPETE BAR 8 HOME MED HOME MED FREESTAND EQUIP. EQUIP. ING [employer] COMPLETE WITH GRAB BAR HOS BED E0260 YOSE[facility]N TOPETE SEMI-ELEC 8 HOME MED HOME MED W/ANY EQUIP. EQUIP. TYPE [facility] RAIL W/MATTRSS DAY CARE S[address] ADULT; ELDER ELDER PER 15 CARE CARE MINUTES DAY CARE S5[address] ADULT; ELDER ELDER PER 15 CARE CARE MINUTES DAY CARE S5[address] ADULT; ELDER ELDER PER 15 CARE CARE MINUTES MEDICAL 74969 [facility] [address] [place] [address] ASSMT&IVN BANK ACCT TJ INDIV EACH 15 [place] DAY CARE S[address] ADULT; ELDER ELDER PER 15 CARE CARE MINUTES DAY CARE S[address] ADULT; ELDER ELDER PER 15 CARE CARE MINUTES ADLT SZD T4528 [facility] 8 HOME HOME INCONT HEALTH HEALTH PROD AGENCY AGENCY UNDWEAR XTRA LG EA DAY CARE S[address] ADULT; ELDER ELDER PER 15 CARE CARE MINUTES DAY CARE S5[address] ADULT; ELDER ELDER PER 15 CARE CARE MINUTES DAY CARE S5[address] ADULT; ELDER ELDER PER 15 CARE CARE MINUTES DAY CARE S5[address] ADULT; ELDER ELDER PER 15 CARE CARE MINUTES TRAPEZE E0940 Y[facility] SCHROEDER 8 HOME MED HOME MED FREESTAND EQUIP. EQUIP. ING [employer] COMPLETE WITH GR[facility] BAR HOS BED E0260 YOSELYN GUAJARDORELL SEMI-ELEC 8 HOME MED HOME MED W/ANY EQUIP. EQUIP. TYPE [facility] RAIL W/MATTRSS DAY CARE S[address] ADULT; ELDER ELDER PER 15 CARE CARE MINUTES DAY CARE S5[address] ADULT; ELDER ELDER PER 15 CARE CARE MINUTES DAY CARE S5[address] ADULT; ELDER ELDER PER 15 CARE CARE MINUTES DAY CARE S5[address] ADULT; ELDER ELDER PER 15 CARE CARE MINUTES DAY CARE S5[address] ADULT; ELDER ELDER PER 15 CARE CARE MINUTES DAY CARE S5[address] ADULT; ELDER ELDER PER 15 CARE CARE MINUTES DAY CARE S5[address] ADULT; ELDER ELDER PER 15 CARE CARE MINUTES INTERMIT A4351 OUMAR SENA 8 [facility] CATH; E CENTERS E CENTERS STRAIGHT TIP W/WO COAT EA DAY CARE S5[address] ADULT; ELDER ELDER PER 15 CARE CARE MINUTES DAY CARE S5[address] ADULT; ELDER ELDER PER 15 CARE CARE MINUTES DAY CARE S5[address] ADULT; ELDER ELDER PER 15 CARE CARE MINUTES DAY CARE S5[address] ADULT; ELDER ELDER PER 15 CARE CARE MINUTES DAY CARE S5[address] ADULT; ELDER ELDER PER 15 CARE CARE MINUTES DAY CARE S[address] ADULT; ELDER ELDER PER 15 CARE CARE MINUTES DAY CARE S[address] ADULT; ELDER ELDER PER 15 CARE CARE MINUTES DAY CARE S5[address] ADULT; ELDER ELDER PER 15 CARE CARE MINUTES DAY CARE S5100 [address] ADULT; ELDER ELDER PER 15 CARE CARE MINUTES DAY CARE S5[address] ADULT; ELDER ELDER PER 15 CARE CARE MINUTES DAY CARE S5100 [address] ADULT; ELDER ELDER PER 15 CARE CARE MINUTES DAY CARE S5100 [address] ADULT; ELDER ELDER PER 15 CARE CARE MINUTES DAY CARE S5[address] ADULT; ELDER ELDER PER 15 CARE CARE MINUTES TRAPEZE [id number] [facility] BAR 8 HOME MED HOME MED FREESTAND EQUIP. EQUIP. ING [facility] COMPLETE WITH GRAB BAR HOS BED [id number] [facility] SEMI-ELEC 8 HOME MED HOME MED W/ANY EQUIP. EQUIP. TYPE SIDE [facility] RAIL W/MATTRSS AIR PRESS [id number] [facility] PAD 8 HOME MED HOME MED MATTRSS EQUIP. EQUIP. STD [facility] MATTRSS LENGTH&WI DTH DAY CARE S5[address] ADULT; ELDER ELDER PER 15 CARE CARE MINUTES DAY CARE S5100 [address] ADULT; ELDER ELDER PER 15 CARE CARE MINUTES DAY CARE S5100 [address] ADULT; ELDER ELDER PER 15 CARE CARE MINUTES DAY CARE S5100 [address] ADULT; ELDER ELDER PER 15 CARE CARE MINUTES DAY CARE S5100 [address] ADULT; ELDER ELDER PER 15 CARE CARE MINUTES DAY CARE S5100 [address] ADULT; ELDER ELDER PER 15 CARE CARE MINUTES DAY CARE S5100 [address] ADULT; ELDER ELDER PER 15 CARE CARE MINUTES ADLT SZD [id number] [facility] HOME [facility]ALTH PROD AGENCY AGENCY UNDWEAR XTRA LG EA DAY CARE S5100 [address] ADULT; ELDER ELDER PER 15 CARE CARE MINUTES DAY CARE S5100 [address] ADULT; ELDER ELDER PER 15 CARE CARE MINUTES DAY CARE S5100 [address] ADULT; ELDER ELDER PER 15 CARE CARE MINUTES BLD GLU [id number] M E D M E D TEST/REAG 8 SUPPLIES SUPPLIES T STRIPS HOME BLD GLU 50 DAY CARE S5[address] ADULT; ELDER ELDER PER 15 CARE CARE MINUTES DAY CARE S5100 [address] ADULT; ELDER ELDER PER 15 CARE CARE MINUTES DAY CARE S5100 [address] ADULT; ELDER ELDER PER 15 CARE CARE MINUTES DAY CARE S5100 [address] ADULT; ELDER ELDER PER 15 CARE CARE MINUTES DAY CARE S5100 [address] ADULT; ELDER ELDER PER 15 CARE CARE MINUTES DAY CARE S5100 [address] ADULT; ELDER ELDER PER 15 CARE CARE MINUTES DAY CARE S5100 [address] ADULT; ELDER ELDER PER 15 CARE CARE MINUTES DAY CARE S5100 [address] ADULT; ELDER ELDER PER 15 CARE CARE MINUTES DAY CARE S5100 [address] ADULT; ELDER ELDER PER 15 CARE CARE MINUTES DAY CARE S5[address] ADULT; ELDER ELDER PER 15 CARE CARE MINUTES INTERMIT [id number] OUMAR SENA 8 [facility] CATH; E CENTERS E CENTERS STRAIGHT TIP W/WO COAT EA DAY CARE S5100 [address] ADULT; ELDER ELDER PER 15 CARE CARE MINUTES DAY CARE S5100 [address] ADULT; ELDER ELDER PER 15 CARE CARE MINUTES DAY CARE S5100 [address] ADULT; ELDER ELDER PER 15 CARE CARE MINUTES ADLT SZD [id number] [facility] 8 HOME HOME INCONT HEALTH HEALTH PROD AGENCY AGENCY UNDWEAR XTRA LG EA DAY CARE S5[address] ADULT; ELDER ELDER PER 15 CARE CARE MINUTES DAY CARE S5100 [address] ADULT; ELDER ELDER PER 15 CARE CARE MINUTES DAY CARE S5100 [address] ADULT; ELDER ELDER PER 15 CARE CARE MINUTES DAY CARE S5100 [facility] [address] [place] [address] ADULT; ELDER ELDER PER 15 CARE CARE MINUTES DAY CARE S5100 [facility] [address] [place] [address] ADULT; ELDER ELDER PER 15 CARE CARE MINUTES DAY CARE S5100 [facility] [address] [place] [address] ADULT; ELDER ELDER PER 15 CARE CARE MINUTES DAY CARE S5100 [facility] [address] [place] [address] ADULT; ELDER ELDER PER 15 CARE CARE MINUTES DAY CARE S5100 [facility] [address] [place] [address] ADULT; ELDER ELDER PER 15 CARE CARE MINUTES DAY CARE S5100 [facility] [address] [place] [address] ADULT; ELDER ELDER PER 15 CARE CARE MINUTES DAY CARE S5100 [facility] [address] [place] [address] ADULT; ELDER ELDER PER 15 CARE CARE MINUTES DAY CARE S5100 [facility] [address] ADULT; ELDER ELDER PER 15 CARE CARE MINUTES DAY CARE S5[address] [facility] [address] ADULT; ELDER ELDER PER 15 CARE CARE MINUTES DAY CARE S5100 [facility] [address] ADULT; ELDER ELDER PER 15 CARE CARE MINUTES DAY CARE S5100 [facility] [address] ADULT; ELDER ELDER PER 15 CARE CARE MINUTES DAY CARE S5[address] ADULT; ELDER ELDER PER 15 CARE CARE MINUTES DAY CARE S5100 [facility] [address] ADULT; ELDER ELDER PER 15 CARE CARE MINUTES DAY CARE S5[address] [facility] [address] ADULT; ELDER ELDER PER 15 CARE CARE MINUTES DAY CARE S5100 [facility] [address] [place] [address] ADULT; ELDER ELDER PER 15 CARE CARE MINUTES DAY CARE S5100 [facility] [address] [place] [address] ADULT; ELDER ELDER PER 15 CARE CARE MINUTES DAY CARE S5100 [facility] [address] [place] [address] ADULT; ELDER ELDER PER 15 CARE CARE MINUTES ADLT SZD [id number] [facility]ENC[facility] AGENCY UNDWEAR XTRA LG EA INCONTINE T4541 [facility] NCE 8 HOME HOME [facility] DISPOSABL AGENCY AGENCY E UNDPAD LARGE EA DAY CARE S5100 [facility] 8 [facility] ADULT; ELDER ELDER PER 15 CARE CARE MINUTES DAY CARE S5100 [facility] 8 [facility] ADULT; ELDER ELDER PER 15 CARE CARE MINUTES Encounters Encounter Start End Date Code Location Performer Type Date Emergency JORGE Wadegerard (ER) 3 15:31 3 17:43 [facility] Den[facility] 0 0 HOME OUTPATIEN HEALTH T [facility] 0 0 [facility], 0 0 DIST OTHER HEALTH 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[facility], 0 0 DIST OTHER HEALTH 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[facility], 0 0 HOME OUTPATIEN HEALTH T AGENCY HOME [facility], 0 0 DIST OTHER HEALTH 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 OFFICE 73184 TERRY GALARZA 9 9 LEANDRA Hernandez T VISIT PSC 15 MINUTES OFFICE 35808 TERRY MCGREGOR 9 9 LEANDRA PETIT T VISIT 5 PSC MINUTES HOME [facility], 9 9 DIST OTHER HEALTH 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[facility], 9 9 HOME OUTPATIEN HEALTH T AGENCY OFFICE 19010 TERRY RUIZ 9 9 LYNNE MUNGUIA T VISIT SERV 15 FOUNDATIO MINUTES HOME [facility], 9 9 DIST OTHER HEALTH 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[facility], 9 9 HOME OUTPATIEN HEALTH T [facility] - 9 9 [facility] T [facility], 9 9 DIST OTHER HEALTH 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 OFFICE 11325 TIM SCHULTE, CONSULTAT 9 9 LYNNE MUNGUIA ION SERV NEW/ESTAB FOUNDATIO PATIENT 60 MIN HOME [facility], 9 9 DIST OTHER HEALTH 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 OFFICE 02546 Mary HANDY OUTPATIEN 9 9 LEANDRA Messer T VISIT PSC 15 MINUTES OFFICE 01351 Mary HANDY OUTPATIEN 9 9 LEANDRA Messer T VISIT PSC 15 MINUTES HOME [facility], 9 9 DIST OTHER HEALTH 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[facility], 9 9 HOME OUTPATIEN HEALTH T [facility] - 9 9 [facility] OUTPATIEN [facility] T HOME [facility] 9 9 DIST OTHER HEALTH 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[facility] 9 9 DIST OTHER HEALTH 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[facility], 9 9 HOME OUTPATIEN HEALTH T AGENCY OFFICE 79750 TERRY GALARZA 9 9 LEANDRA Hernandez T VISIT PSC 15 MINUTES HOME [facility], 9 9 DIST OTHER HEALTH 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 OFFICE 83315 TERRY MCGREGOR 9 9 LEANDRA PETIT T VISIT 5 PSC MINUTES OFFICE 93185 TERRY GALARZA 9 9 LEANDRA Hernandez T VISIT PSC 15 MINUTES HOME [facility], 9 9 DIST OTHER HEALTH 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[facility], 9 9 HOME OUTPATIEN HEALTH T AGENCY OFFICE 30265 [facility] 9 9 HEALTH CO HEALTH T VISIT [facility] 15 BANK ACCT MINUTES HOME [facility] 9 9 DIST OTHER HEALTH 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[facility], 9 9 DIST OTHER HEALTH 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 OFFICE 43522 Mary HANDY OUTPATIEN 9 9 LEANDRA Rhodes VISIT PSC 15 MINUTES HOME [facility], 9 9 HOME OUTPATIEN HEALTH T AGENCY HOME [facility], 9 9 DIST OTHER HEALTH 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 OFFICE 76731 Mary HANDY OUTPATIEN 9 9 LEANDRA Rhodes VISIT 5 PSC MINUTES HOME [facility] 9 9 HOME OUTPATIEN HEALTH T AGENCY HOME [facility], 9 9 DIST OTHER HEALTH 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 OFFICE 09972 Mary HANDY OUTPATIEN 9 9 LEANDRA Rhodes VISIT 5 PSC MINUTES HOME [facility], 9 9 DIST OTHER HEALTH 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[facility], 9 9 HOME OUTPATIEN HEALTH T AGENCY OFFICE 40939 Mary HANDY OUTPATIEN 9 9 LEANDRA Rhodes VISIT 5 PSC MINUTES OFFICE 65144 Mary HANDY OUTPATIEN 9 9 LEANDRA Rohdes VISIT PSC 15 MINUTES HOME [facility], 9 9 DIST OTHER HEALTH 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 OFFICE 51149 Mary HANDY OUTPATIEN 9 9 LEANDRA Rhodes VISIT 5 PSC MINUTES HOME [facility], 9 9 DIST OTHER HEALTH 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[facility], 9 9 HOME OUTPATIEN HEALTH T AGENCY HOME [facility], 8 8 DIST OTHER HEALTH 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[facility], 8 8 HOME OUTPATIEN HEALTH T AGENCY HOME [facility], 8 8 DIST OTHER HEALTH 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 OFFICE 25292 Mary HANDY OUTPATIEN 8 8 LEANDRA Messer T VISIT 5 PSC MINUTES HOME [facility], 8 8 DIST OTHER HEALTH 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[facility], 8 8 HOME OUTPATIEN HEALTH T AGENCY HOME [facility], 8 8 DIST OTHER HEALTH 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[facility] 8 8 DIST OTHER HEALTH 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[facility], 8 8 HOME OUTPATIEN HEALTH T AGENCY OFFICE 07011 Mary HANDY OUTMARLYS 8 8 LEANDRA Messer T VISIT PSC 15 MINUTES HOSPITAL [facility] - 8 8 [facility] OUTPAT[facility]EN INC T EMERGENCY 75803 JEEVAN ORTIZ, 8 8 [facility] DEPARTMEN CORPORATI O T VISIT ON MODERATE SEVERITY EMERGENCY 37365 [facility] 8 8 [facility] DEPARTMEN INC T VISIT HIGH/URGE NT SEVERITY HOME [id number], 8 8 DIST OTHER HEALTH 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[facility], 8 8 DIST OTHER HEALTH 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 OFFICE 45220 Mary HANDY 8 8 LEANDRA Messer T VISIT PSC 15 MINUTES HOME [employer] HEALTH, 8 8 HOME OUTPATIEN HEALTH T AGENCY [facility], 8 8 DIST OTHER HEALTH 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[facility] 8 8 HOME OUTPATIEN HEALTH T AGENCY [facility], 8 8 DIST OTHER HEALTH 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 OFFICE 49118 [facility] 8 8 HEALTH CO HEALTH T V[facility]IT [facility] BANK ACCT MINUTES [facility], 8 8 DIST OTHER HEALTH 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
--- OUTSIDE RECORDS SUMMARY | 2016-12-16 18:32 | External Medical Summary Rpt ---
Author Author , Organization [employer] Address Unknown Phone Unavailable Care Team Providers Care Hop Trainer Name Role Phone ALBA STODDARD, Unavailable Unavailable ALBA STODDARD ANTONIO, Unavailable Unavailable [facility] Unavailable Unavailable SERVICE, [facility] Unavailable Unavailable CENTERS, [facility]ERS [facility] Un[facility] Unavailable INC[facility] Unavailable Unavailable CENTER, [facility] Unavailable [facility]available CARE, [facility] Unavailable Unavailable INC, [facility] KIT RICHTER, Unavailable Unavailable KIT RICHTER [facility] Unavailable Unavailable IM[facility], [facility] Unavailable Unavailable HOLDING, [facility] Skyler Penaloza SUPPLIES, M Regis Penaloza Unavailable Unavailable SUPPLIES YONY BURRIS, Unavailable Unavailable YONY BURRIS STEPHEN A, Unavailable Unavailable ALBA MANLEY MARC D, Unavailable Unavailable FLAKITA LEAL [facility] Unavailable Unavailable ASSOCIATES,[facility], [facility] DAMASO ALMANZAR, Unavailable Unavailable DAMASO ALMANZAR BABATUNDE O, Unavailable Unavailable BARNEY ORTIZ [facility] Unavailable Unavailable [facility], 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 [facility] Unavailable Unavailable AGENCY, [facility] Mary MOBLEY WRIGHT, Unavailable Unavailable Mary C Purpose Continuity of Care Document - 08-20-2007 through 2016 Problems Code Diagnosis DOS Provider Status 50869 DIAB W/O 11-11-2009 Skyler Penaloza MENTION SUPPLIES COMP TYPE II/UNS TYPE UNCNTRL 77053 UNSPECIFIED 11-10-2009 [facility] INCONT[facility]ENC CENTERS E 4389 UNSPEC LATE 11-07-2009 [facility] EFF HEALTH CEREBRVASC AGENCY DZ DUE CEREBRVASC DZ 7197 DIFFICULTY 11-07-2009 [facility] IN WALKING HEALTH AGENCY 56471 OTHER 11-07-2009 [facility] MALAISE AND HEALTH FATIGUE AGENCY 437 OTHER 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[facility] CEREBROVASC ULAR DISEASE 5950 ACUTE 10-24-2009 [facility] 51926 INCOMPLETE 10-24-2009 [facility]DER [facility] EMPTYING INC 4019 UNSPECIFIED 10-17-2009 [facility] HYPERTENSIO 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 EQUIPMENT OPERATOR N 496 CHRONIC 10-17-2009 [facility] DE[facility] OBSTRUCTION RAILWAY EQUIPMENT OPERATOR NEC 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, OSIS OF FLAKITA D NAIL 7295 PAIN IN 10-07-2009 [facility], SOFT FLAKITA D TISSUES OF LIMB 40071 DIAB W/O 08-02-2009 [facility] COMP TYPE AMERIC II/UNS NOT HOLDING STATED UNCNTRL 94813 OTH FORM 08-02-2009 [facility] EPILEPSY & AMERIC RECUR HOLDING SEIZUR NO INTRACT EPIL 4011 ESSENTIAL 08-02-2009 [facility] HYPERTENSIO AMERIC N, BENIGN HOLDING 4659 ACUTE URIS 08-02-2009 Mary COATS [facility] UNSPECIFIED SITE V5861 LONG-TERM 08-02-2009 Mary MOBLEY (CURRENT) PSC USE OF ANTICOAGULA NTS 5990 URINARY 08-01-2009 [facility] TRACT AMERIC INFECTION HOLDING SITE NOT SPECIFIED 89330 UNSPECIFIED 06-29-2009 [facility] N V0481 NEED 06-01-2009 [facility] VACCINATION &INOCULATIO N FLU 2724 OTHER AND 05-26-2009 [facility] UNSPECIFIED [facility] HYPERLIPIDE ROXANNA 79693 BACKGROUND 04-12-2009 ALFIE RICHTER A RETINOPATHY 85926 HYPERTROPHY 03-31-2009 [facility] W/UR OBST & INC OTH LUTS 4329 UNSPECIFIED 03-10-2009 [facility] L HEMORRHAGE 7365 GENU 03-10-2009 [facility]UM [facility] 33372 OTHER 03-10-2009 [facility] DEFORMITY [facility] INC OF ANKLE AND FOOT OTHER 4779 ALLERGIC 01-20-2009 Mary MOBLEY RHINITIS PSC CAUSE UNSPECIFIED 3449 UNSPECIFIED 12-03-2008 [facility] 436 ACUTE BUT 12-03-2008 [facility] CEREBROVASC ULAR DISEASE 06635 OTHER 11-24-2008 Mary MOBLEY CONVULSIONS PSC E9479 UNSPEC 11-24-2008 [facility] RX/MEDICINA AMERIC L SBST[place] [address] MALIG HTN 10-08-2008 [facility] WITHOUT [facility] HEART FAIL 4589 UNSPECIFIED 10-08-2008 [facility] 4660 ACUTE 10-08-2008 [facility] 3320 PARALYSIS 10-01-2008 [facility] 5964 ATONY OF 10-01-2008 [facility] BLAD[facility] AGENCY V5789 OTHER 10-01-2008 [facility] SPECIFIED HEALTH REHABILITAT AGENCY ION PROCEDURE OTHER 60929 UNSPECIFIED 07-13-2008 [facility]ION [facility] URINE CENTERS 7802 SYNCOPE AND 02-24-2008 Mary MOBLEY COLLAPSE [facility] 7804 DIZZINESS 02-23-2008 [facility] GIDDINESS SERVICE V653 DIETARY 01-21-2008 [facility] SURVEILLANC HE[facility] E AND [facility]SEL[facility] B[facility] ACCT V7791 SCREENING 11-06-2007 [facility] FOR LIPOID HEALTH DISORDERS CENTRAL BANK ACCT 7806 FEVER & OTH 09-02-2007 [facility] DISTURBANCE S TEMP REG Immunization Name Date Route CVX Reacti Commen Provid Is Given on t er Refuse d IIV3 P[facility]OTOC No VACCIN 2008 [facility] 0.5 ML DOSAGE IM USE IIV3 P[facility]OC No VACCIN 2008 [facility] 0.5 ML DOSAGE IM USE IIV3 P[facility]OTOC No VACCIN 2007 [facility] 0.5 ML DOSAGE IM USE Procedures Procedure DOS Code Location Performer Comment DAY CARE S5100 [facility] SERVICES 0 [facility] ADULT; ELDER ELDER PER 15 CARE CARE MINUTES DAY CARE S5100 [facility] SERVICES 0 [facility] ADULT; ELDER ELDER PER 15 CARE CARE MINUTES DAY CARE S5100 [facility] SERVICES 0 [facility] ADULT; ELDER ELDER PER 15 CARE CARE MINUTES BLD GLU A4253 M E D M E D TEST/REAG 0 SUPPLIES SUPPLIES T STRIPS HOME BLD GLU MON-50 LANCETS A4259 M E D M E D PER BOX 0 SUPPLIES SUPPLIES OF 100 INTERMIT A4351 [facility] URIN 0 1006[facility]tv [facility] CATH; E CENTERS E CENTERS STRAIGHT TIP W/WO COAT EA DAY CARE S5100 [facility] SERVICES 0 [facility] ADULT; ELDER ELDER PER 15 CARE CARE MINUTES DAY CARE S5100 [facility] SERVICES 0 [facility] ADULT; ELDER ELDER PER 15 CARE CARE MINUTES DAY CARE S5100 [facility] SERVICES 0 [facility] ADULT; ELDER ELDER PER 15 CARE CARE MINUTES INCONTINE T4541 [facility] HEALTH DISPOSABL AGENCY AGENCY E UNDPAD LARGE EA ADLT SZD T4528 [facility] DISPBL 0 HOME HOME INCONT HEALTH HEALTH PROD AGENCY AGENCY UNDWEAR XTRA LG EA DAY CARE S5100 [facility] SERVICES 0 [facility] ADULT; ELDER ELDER PER 15 CARE CARE MINUTES DAY CARE S5100 [facility] SERVICES 0 [facility] ADULT; ELDER ELDER PER 15 CARE CARE MINUTES DAY CARE S5100 [facility] SERVICES 0 [facility] ADULT; ELDER ELDER PER 15 CARE CARE MINUTES DAY CARE S5100 [facility] SERVICES 0 [facility] ADULT; ELDER ELDER PER 15 CARE CARE MINUTES DAY CARE S5100 [facility] SERVICES 0 [facility] ADULT; ELDER ELDER PER 15 CARE CARE MINUTES CULTURE 17627 [facility] BCT 0 [facility] ISOL&PRSM INC INC PTV ID ISOLATE EA URINE CULTURE 88731 [facility] BACTERIAL 0 [facility] INC INC QUANTTATI VE COLONY COUNT URINE SUSCEPTIB 67895 [facility] LTY STDY 0 [facility] ANTIMICRB INC INC IAL MICRO/AGA R DILUTJ DAY CARE S5100 [facility] SERVICES 0 [facility] ADULT; ELDER ELDER PER 15 CARE CARE MINUTES DAY CARE S5100 [facility] SERVICES 0 [facility] ADULT; ELDER ELDER PER 15 CARE CARE MINUTES DAY CARE S5100 [facility] SERVICES 0 [facility] ADULT; ELDER ELDER PER 15 CARE CARE MINUTES DAY CARE S5100 [facility] SERVICES 0 [facility] ADULT; ELDER ELDER PER 15 CARE CARE MINUTES DAY CARE S5100 [facility] SERVICES 0 [facility] ADULT; ELDER ELDER PER 15 CARE CARE MINUTES DAY CARE S5100 [facility] SERVICES 0 [facility] ADULT; ELDER ELDER PER 15 CARE CARE MINUTES DAY CARE S5100 [facility] SERVICES 0 [facility] ADULT; ELDER ELDER PER 15 CARE CARE MINUTES DAY CARE S5100 [facility] SERVICES 0 [facility] ADULT; ELDER ELDER PER 15 CARE CARE MINUTES INTERMIT A4351 [facility] URIN 0 [facility] CATH; E CENTERS E CENTERS STRAIGHT TIP W/WO COAT EA DAY CARE S5100 [facility] SERVICES 0 [facility] ADULT; ELDER ELDER PER 15 CARE CARE MINUTES DAY CARE S5100 [facility] SERVICES 0 [facility] ADULT; ELDER ELDER PER 15 CARE CARE MINUTES DAY CARE S5100 [facility] SERVICES 0 [facility] ADULT; ELDER ELDER PER 15 CARE CARE MINUTES DAY CARE S5100 [facility] SERVICES 0 [facility] ADULT; ELDER ELDER PER 15 CARE CARE MINUTES DAY CARE S5100 [facility] SERVICES 0 [facility] ADULT; ELDER ELDER PER 15 CARE CARE MINUTES DAY CARE S5100 [facility] SERVICES 0 [facility] ADULT; ELDER ELDER PER 15 CARE CARE MINUTES ADLT SZD T4528 [facility] 0 [facility] PROD AGENCY AGENCY UNDWEAR XTRA LG EA DAY CARE S5100 [facility] SERVICES 9 [facility] ADULT; ELDER ELDER PER 15 CARE CARE MINUTES DAY CARE S5100 [facility] SERVICES 9 [facility] ADULT; ELDER ELDER PER 15 CARE CARE MINUTES DAY CARE S5100 [facility] SERVICES 9 [facility] ADULT; ELDER ELDER PER 15 CARE CARE MINUTES DAY CARE S5100 [facility] SERVICES 9 [facility] ADULT; ELDER ELDER PER 15 CARE CARE MINUTES DAY CARE S5100 [facility] SERVICES 9 [facility] ADULT; ELDER ELDER PER 15 CARE CARE MINUTES DAY CARE S5100 [facility] SERVICES 9 [facility] ADULT; ELDER ELDER PER 15 CARE CARE MINUTES COLLECTIO 11193 Mary MANLEY, N VENOUS 9 LEANDRA Hernandez BLOOD PSC VENIPUNCT URE IM ADM 78504 Mary MANLEY, PRQ ID 9 LEANDRA Hernandez SUBQ/IM PSC NJXS 1 VACCINE PROTHROMB 78131 Mary MANLEY, IN TIME 9 LEANDRA eHrnandez PSC BASIC 54586 [facility] METABOLIC 9 AMERIC AMERIC PANEL HOLDING HOLDING CALCIUM TOTAL INJ J0702 Mary MANLEY BETAMETHA 9 LEANDRA Hernandez SONE PSC ACETATE & PHOSPHATE 3 MG DRUG 41279 [facility] ASSAY 9 AMERIC AMERIC VALPROIC HOLDING HOLDING DIPROPYLA CETIC ACID TOTAL GLUCOSE 00595 Mary MANLEY, QUANTITAT 9 LEANDRA Hernandez TAYLER BLOOD PSC XCPT REAGENT STRIP HEMOGLOBI 11013 Mary MANLEY, N 9 LEANDRA Hernandez GLYCOSYLA PSC SUSAN A1C CULTURE 16757 [facility] BCT 9 AMERIC AMERIC ISOL&PRSM HOLDING HOLDING PTV ID ISOLATE EA URINE URINLS 15213 A Ayde ALMANZAR, DIP 9 LEANDRA WHITESIDE DAMASO STICK/TAB PSC LET REAGNT NON-AUTO MICRSCPY CULTURE 31714 [facility] BACTERIAL 9 AMERIC AMERIC HOLDING HOLDING QUANTTATI VE COLONY COUNT URINE CUL BACT 62962 [facility] AEROBIC 9 AMERIC AMERIC ADDL HOLDING HOLDING METHS DEFINITIV E EA ISOL SUSCEPTIB 10710 [facility] LTY STDY 9 AMERIC AMERIC ANTIMICRB HOLDING HOLDING IAL MICRO/AGA R DILUTJ DAY CARE S[address] ADULT; ELDER ELDER PER 15 CARE CARE MINUTES DAY CARE S[address] ADULT; ELDER ELDER PER 15 CARE CARE MINUTES DAY CARE S[address] ADULT; ELDER ELDER PER 15 CARE CARE MINUTES DAY CARE S5[address] ADULT; ELDER ELDER PER 15 CARE CARE MINUTES DAY CARE S[address] ADULT; ELDER ELDER PER 15 CARE CARE MINUTES ADLT SZD T4528 [facility] 9 HOME HOME INCONT HEALTH HEALTH PROD AGENCY AGENCY UNDWEAR XTRA LG EA DEBRIDEME 06309 PAWT, MEL, SHIKHA NAIL 9 FLAKITA Penaloza ANY METHOD 6/> DAY CARE S5100 [facility] SERVICES [address] [place] [address] ADULT; ELDER ELDER PER 15 CARE CARE MINUTES DAY CARE S5100 [facility] SERVICES [address] [place] [address] ADULT; ELDER ELDER PER 15 CARE CARE MINUTES INTERMIT A4351 [facility] SENA 9 [facility] CATH; E CENTERS E CENTERS STRAIGHT TIP W/WO COAT EA DAY CARE S5100 [facility] SERVICES [address] [place] [address] ADULT; ELDER ELDER PER 15 CARE CARE MINUTES DAY CARE S5100 [facility] SERVICES [address] [place] [address] ADULT; ELDER ELDER PER 15 CARE CARE MINUTES DAY CARE S5100 [facility] SERVICES [address] [place] [address] ADULT; ELDER ELDER PER 15 CARE CARE MINUTES DAY CARE S5100 [facility] SERVICES [address] [place] [address] ADULT; ELDER ELDER PER 15 CARE CARE MINUTES DAY CARE S5100 [facility] SERVICES [address] [place] [address] ADULT; ELDER ELDER PER 15 CARE CARE MINUTES DAY CARE S5100 [facility] SERVICES [address] [place] [address] ADULT; ELDER ELDER PER 15 CARE CARE MINUTES DAY CARE S5100 [facility] SERVICES [address] [place] [address] ADULT; ELDER ELDER PER 15 CARE CARE MINUTES DAY CARE S5100 [facility] SERVICES [address] [place] [address] ADULT; ELDER ELDER PER 15 CARE CARE MINUTES DAY CARE S5100 [facility] SERVICES [address] [place] [address] ADULT; ELDER ELDER PER 15 CARE CARE MINUTES DAY CARE S5100 [facility] SERVICES [address] [place] [address] ADULT; ELDER ELDER PER 15 CARE CARE MINUTES DAY CARE S5100 [employer] [facility] [address] [place] [address] ADULT; ELDER ELDER PER 15 CARE CARE MINUTES DAY CARE S5100 [facility] SERVICES [address] [place] [address] ADULT; ELDER ELDER PER 15 CARE CARE MINUTES DAY CARE S5100 [employer] [facility] [address] [place] [address] ADULT; ELDER ELDER PER 15 CARE CARE MINUTES DAY CARE S5100 [facility] SERVICES [address] [place] [address] ADULT; ELDER ELDER PER 15 CARE CARE MINUTES INCONTINE T4541 [facility] NCE 9 HOME HOME PRODUCT HE[facility] HEALTH DISPOSABL AGENCY AGENCY E UNDPAD LARGE EA DAY CARE S5100 [facility] [address] [place] [address] ADULT; ELDER ELDER PER 15 CARE CARE MINUTES DAY CARE S5100 [facility] SERVICES [address] [place] [address] ADULT; ELDER ELDER PER 15 CARE CARE MINUTES IIV3 81191 [facility] VACCINE 9 [place] [employer] CENTER VIRUS 0.5 ML DOSAGE IM USE ADMINISTR G0008 [facility] ATION OF 9 [place] [employer] INFLUENZA CENTER CENTER VIRUS VACCINE ADLT SZD T4528 [facility] DIS[facility] 9 HOME HOME INCONT HEALTH HEALTH PROD AGENCY AGENCY UNDWEAR XTRA LG EA DAY CARE S5100 [facility] SERVICES [address] [place] [address] ADULT; ELDER ELDER PER 15 CARE CARE MINUTES DAY CARE S5100 [facility] [address] ADULT; ELDER ELDER PER 15 CARE CARE MINUTES COLLECTIO 07277 [facility] N VENOUS 9 [facility] BLOOD INC INC VENIPUNCT URE BASIC 32427 [facility] METABOLIC 9 [facility] [place] [address] [facility] THYROID 9 [facility] STIMULATI INC INC NG HORMONE TSH INTERMIT A4351 [facility] SENA 9 [facility] CATH; E CENTERS E CENTERS STRAIGHT TIP W/WO COAT EA DAY CARE S5100 [facility] SERVICES [address] [place] [address] ADULT; ELDER ELDER PER 15 CARE CARE MINUTES DAY CARE S5100 [facility] SERVICES [address] [place] [address] ADULT; ELDER ELDER PER 15 CARE CARE MINUTES DAY CARE S5100 [facility] SERVICES [address] [place] [address] ADULT; ELDER ELDER PER 15 CARE CARE MINUTES DAY CARE S5100 [facility] SERVICES [address] [place] [address] ADULT; ELDER ELDER PER 15 CARE CARE MINUTES DAY CARE S5100 [facility] SERVICES [address] [place] [address] ADULT; ELDER ELDER PER 15 CARE CARE MINUTES DAY CARE S[address] [facility] [address] ADULT; ELDER ELDER PER 15 CARE CARE MINUTES DAY CARE S[address] ADULT; ELDER ELDER PER 15 CARE CARE MINUTES DAY CARE S[address] ADULT; ELDER ELDER PER 15 CARE CARE MINUTES LANCETS A4259 M E D M E D PER BOX 9 SUPPLIES SUPPLIES OF 100 REPL CRUZ A4235 M E D M E D LITHIUM 9 SUPPLIES SUPPLIES MED NECES SHERYL BG MON OWN PT EA SPRING-PO A4258 M E D M E D WERED 9 SUPPLIES SUPPLIES DEVICE FOR LANCET EACH ADMINISTR G0008 [facility] ATION OF 9 [facility] CENTER VIRUS VACCINE NORMAL A4256 M E D M E D LOW AND 9 SUPPLIES SUPPLIES HIGH CALIBRATO R SOLUTION/ CHIPS BLD GLU A4253 M E D M E D TEST/REAG 9 SUPPLIES SUPPLIES T STRIPS HOME BLD GLU MON-50 IIV3 76006 [facility] VACCINE 9 [facility] VIRUS 0.5 ML DOSAGE IM USE DAY CARE S[address] ADULT; ELDER ELDER PER 15 CARE CARE MINUTES DAY CARE S[address] ADULT; ELDER ELDER PER 15 CARE CARE MINUTES DAY CARE S[address] ADULT; ELDER ELDER PER 15 CARE CARE MINUTES DAY CARE S[address] ADULT; ELDER ELDER PER 15 CARE CARE MINUTES DAY CARE S[address] ADULT; ELDER ELDER PER 15 CARE CARE MINUTES DAY CARE S[address] ADULT; ELDER ELDER PER 15 CARE CARE MINUTES DAY CARE S[address] ADULT; ELDER ELDER PER 15 CARE CARE MINUTES DAY CARE S[address] ADULT; ELDER ELDER PER 15 CARE CARE MINUTES DAY CARE S[address] ADULT; ELDER ELDER PER 15 CARE CARE MINUTES DAY CARE S[address] ADULT; ELDER ELDER PER 15 CARE CARE MINUTES INTERMIT A4351 [facility] SENA 9 [facility] CATH; E CENTERS E CENTERS STRAIGHT TIP W/WO COAT EA DAY CARE S5100 [facility] [address] ADULT; ELDER ELDER PER 15 CARE CARE MINUTES DAY CARE S5100 [facility] [address] ADULT; ELDER ELDER PER 15 CARE CARE MINUTES DAY CARE S5100 [facility] [address] ADULT; ELDER ELDER PER 15 CARE CARE MINUTES DAY CARE S5100 [facility] [address] ADULT; ELDER ELDER PER 15 CARE CARE MINUTES DAY CARE S5100 [facility] [address] ADULT; ELDER ELDER PER 15 CARE CARE MINUTES ADLT SZD T4528 [facility] 9 [facility] PROD AGENCY AGENCY UNDWEAR XTRA LG EA DAY CARE S5100 [facility] S[facility] [address] ADULT; ELDER ELDER PER 15 CARE CARE MINUTES DAY CARE S5100 [facility] [address] ADULT; ELDER ELDER PER 15 CARE CARE MINUTES DAY CARE S[address] [address] ADULT; ELDER ELDER PER 15 CARE CARE MINUTES [facility] [address] ROBER, ROBER, MEDICAL 9 KIT A KIT A XM&JOELLE COMPRHNSV ESTAB PT 1/> DAY CARE S5100 [facility] [address] ADULT; ELDER ELDER PER 15 CARE CARE MINUTES DAY CARE S5100 [facility] [address] ADULT; ELDER ELDER PER 15 CARE CARE MINUTES DAY CARE S[address] [address] ADULT; ELDER ELDER PER 15 CARE CARE MINUTES DAY CARE S[address] [facility] [address] ADULT; ELDER ELDER PER 15 CARE CARE MINUTES DAY CARE S[address] [address] ADULT; ELDER ELDER PER 15 CARE CARE MINUTES COLLECTIO 68324 [facility] N VENOUS 9 [facility] [address] [facility] RETROPERI 9 [facility] TONEAL INC INC REAL TIME W/IMAGE COMPLETE BASIC 15351 [facility] METABOLIC 9 [facility] PANEL INC INC CALCIUM TOTAL DAY CARE S[address] [facility] [address] ADULT; ELDER ELDER PER 15 CARE CARE MINUTES DAY CARE S[address] ADULT; ELDER ELDER PER 15 CARE CARE MINUTES DAY CARE S[address] ADULT; ELDER ELDER PER 15 CARE CARE MINUTES DAY CARE S[address] ADULT; ELDER ELDER PER 15 CARE CARE MINUTES DAY CARE S[address] ADULT; ELDER ELDER PER 15 CARE CARE MINUTES DAY CARE S[address] ADULT; ELDER ELDER PER 15 CARE CARE MINUTES DAY CARE S[address] ADULT; ELDER ELDER PER 15 CARE CARE MINUTES DAY CARE S[address] ADULT; ELDER ELDER PER 15 CARE CARE MINUTES DAY CARE S[address] ADULT; ELDER ELDER PER 15 CARE CARE MINUTES DAY CARE S[address] ADULT; ELDER ELDER PER 15 CARE CARE MINUTES DAY CARE S5[address] ADULT; ELDER ELDER PER 15 CARE CARE MINUTES ADD LW [id number] [facility] EXT 9 BRACE BRACE VARUS/TARI PROSTH PROSTH ROBERTA WILMER INC INC STRAP PAD/LINE PAD DIAB ONLY [id number] [facility] FIT CSTM 9 BRACE BRACE PREP&SPL PROSTH PROSTH SHOE MX INC INC DNSITY INSRT TRANS L3620 [place] [facility] 1 9 BRACE BRACE SHOE-ANOT PROSTH PROSTH HER SLD INC INC STIRRUP EXISTING REPAIR L4205 [facility] ORTHOTIC 9 BRACE BRACE DEVC PROSTH PROSTH LABOR INC INC COMPONENT PER 15 MIN DAY CARE S[address] ADULT; ELDER ELDER PER 15 CARE CARE MINUTES DAY CARE S5100 [address] ADULT; ELDER ELDER PER 15 CARE CARE MINUTES DAY CARE S5100 [address] ADULT; ELDER ELDER PER 15 CARE CARE MINUTES DAY CARE S5100 [address] ADULT; ELDER ELDER PER 15 CARE CARE MINUTES DAY CARE S5[address] ADULT; ELDER ELDER PER 15 CARE CARE MINUTES ADLT SZD [id number] [facility] HOME HOME INCONT HEALTH HEALTH PROD AGENCY AGENCY UNDWEAR XTRA LG EA DAY CARE S[address] ADULT; ELDER ELDER PER 15 CARE CARE MINUTES INTERMIT [id number] [facility]AR URIN 9 [facility] HEALTHCAR CATH; E CENTERS E CENTERS STRAIGHT TIP W/WO COAT EA URINLS 95062 A C SINDHU, DIP 9 LEANDRA Hernandez STICK/TAB PSC LET REAGNT NON-AUTO MICRSCPY CULTURE 87493 [facility] BACTERIAL 9 [employer] QUANTTATI VE COLONY COUNT URINE DAY CARE S[address] ADULT; ELDER ELDER PER 15 CARE CARE MINUTES DAY CARE S5[address] ADULT; ELDER ELDER PER 15 CARE CARE MINUTES DAY CARE S5[address] ADULT; ELDER ELDER PER 15 CARE CARE MINUTES DAY CARE S5[address] ADULT; ELDER ELDER PER 15 CARE CARE MINUTES CULTURE 42841 [facility] BACTERIAL 9 [employer] QUANTTATI VE COLONY COUNT URINE CUL BACT 37525 [facility] AEROBIC 9 [employer] ADDL [employer] HOLDING METHS DEFINITIV E EA ISOL URINLS 79590 A C JENELLE, DIP 9 LEANDRA PETIT STICK/TAB PSC LET REAGNT NON-AUTO MICRSCPY CULTURE 68687 [facility] BCT 9 [employer] ISOL&[employer]SM [employer] HOLDING PTV ID ISOLATE EA URINE SUSCEPTIB 55512 [facility] LTY STDY 9 [employer] ANTIMICRB HOLDING HOLDING IAL MICRO/AGA R DILUTJ DAY CARE S[address] ADULT; ELDER ELDER PER 15 CARE CARE MINUTES DAY CARE S[id number] ADULT; ELDER ELDER PER 15 CARE CARE MINUTES DAY CARE S[address] ADULT; ELDER ELDER PER 15 CARE CARE MINUTES DAY CARE S5[address] ADULT; ELDER ELDER PER 15 CARE CARE MINUTES DAY CARE S[id number] ADULT; ELDER ELDER PER 15 CARE CARE MINUTES DAY CARE S[address] ADULT; ELDER ELDER PER 15 CARE CARE MINUTES DAY CARE S[address] ADULT; ELDER ELDER PER 15 CARE CARE MINUTES DAY CARE S[address] ADULT; ELDER ELDER PER 15 CARE CARE MINUTES DAY CARE S[address] ADULT; ELDER ELDER PER 15 CARE CARE MINUTES INTERMIT [id number] OUMAR SENA 9 [facility] CATH; E CENTERS E CENTERS STRAIGHT TIP W/WO COAT EA DAY CARE S5100 RAMANDEEP [address]EP[address] ADULT; ELDER ELDER PER 15 CARE CARE MINUTES DAY CARE S5100 [address] ADULT; ELDER ELDER PER 15 CARE CARE MINUTES DAY CARE S5[address] ADULT; ELDER ELDER PER 15 CARE CARE MINUTES DAY CARE S5[address] ADULT; ELDER ELDER PER 15 CARE CARE MINUTES DAY CARE S5100 [address] ADULT; ELDER ELDER PER 15 CARE CARE MINUTES DAY CARE S5100 [address] ADULT; ELDER ELDER PER 15 CARE CARE MINUTES ADLT SZD T4528 [facility] PROD AGENCY AGENCY UNDWEAR XTRA LG EA DAY CARE S5[address] ADULT; ELDER ELDER PER 15 CARE CARE MINUTES DAY CARE S5100 [address] ADULT; ELDER ELDER PER 15 CARE CARE MINUTES DAY CARE S5[address] ADULT; ELDER ELDER PER 15 CARE CARE MINUTES DAY CARE S5100 [facility] [address] [place] [address] ADULT; ELDER ELDER PER 15 CARE CARE MINUTES DAY CARE S5100 [facility] [address] [place] [address] ADULT; ELDER ELDER PER 15 CARE CARE MINUTES DAY CARE S5100 [facility] [address] [place] [address] ADULT; ELDER ELDER PER 15 CARE CARE MINUTES DAY CARE S5100 [facility] [address] [place] [address] ADULT; ELDER ELDER PER 15 CARE CARE MINUTES DAY CARE S5100 [facility] [address] [place] [address] ADULT; ELDER ELDER PER 15 CARE CARE MINUTES DAY CARE S5100 [facility] [address] [place] [address] ADULT; ELDER ELDER PER 15 CARE CARE MINUTES DAY CARE S5100 [facility] [address] [place] [address] ADULT; ELDER ELDER PER 15 CARE CARE MINUTES DAY CARE S5100 RAMANDEEP RAMANDEEP [address] ADULT; ELDER ELDER PER 15 CARE CARE MINUTES DAY CARE S5100 [address] ADULT; ELDER ELDER PER 15 CARE CARE MINUTES DAY CARE S5100 [facility] [address] [place] [address] ADULT; ELDER ELDER PER 15 CARE CARE MINUTES DAY CARE S5100 [address] ADULT; ELDER ELDER PER 15 CARE CARE MINUTES DAY CARE S[address] ADULT; ELDER ELDER PER 15 CARE CARE MINUTES DAY CARE S5100 RAMANDEEP RAMANDEEP [address] ADULT; ELDER ELDER PER 15 CARE CARE MINUTES DAY CARE S5100 [facility]EP [facility] [address] [place] [address] ADULT; ELDER ELDER PER 15 CARE CARE MINUTES DAY CARE S5100 [facility] [address] [place] [address] ADULT; ELDER ELDER PER 15 CARE CARE MINUTES DAY CARE S5100 [facility]EEP [facility] [address] [place] [address] ADULT; ELDER ELDER PER 15 CARE CARE MINUTES TRAPEZE E0940 YOSELYN SCHROEDER 9 HOME MED HOME MED FREESTAND EQUIP. EQUIP. [facility] COMPLETE WITH ART SCHROEDER HOS BED E0260 YOSELYN TOPETE SEMI-ELEC 9 HOME MED HOME MED W/ANY EQUIP. EQUIP. TYPE SIDE [facility] RAIL W/MATTRSS DAY CARE S[address] ADULT; ELDER ELDER PER 15 CARE CARE MINUTES DAY CARE S5[address] ADULT; ELDER ELDER PER 15 CARE CARE MINUTES DAY CARE S5[address] ADULT; ELDER ELDER PER 15 CARE CARE MINUTES DAY CARE S5[address] ADULT; ELDER ELDER PER 15 CARE CARE MINUTES DAY CARE S5[address] ADULT; ELDER ELDER PER 15 CARE CARE MINUTES DAY CARE S5[address] ADULT; ELDER ELDER PER 15 CARE CARE MINUTES COLLECTIO [id number] Mary HANDY VENOUS 9 LEANDRA Messer BLOOD PSC VENIPUNCT URE PROTHROMB [id number] Mary HANDY IN TIME 9 LEANDRA Messer PSC DRUG 81175 LAB ANIK[facility] LAB ANIKA ASSAY 9 [employer] VALPROIC HOLDING HOLDING DIPROPYLA CETIC ACID TOTAL BASIC 94834 LAB ANIKA LAB ANIKA METABOLIC 9 AMERIC AMERIC PANEL HOLDING HOLDING CALCIUM TOTAL ADLT SZD T4528 [facility] HOME HOME INCONT [facility]ALTH HEALTH PROD AGENCY AGENCY UNDWEAR XTRA LG EA DAY CARE S[address] ADULT; ELDER ELDER PER 15 CARE CARE MINUTES DAY CARE S5[address] ADULT; ELDER ELDER PER 15 CARE CARE MINUTES DAY CARE S5[address] ADULT; ELDER ELDER PER 15 CARE CARE MINUTES DAY CARE S5[address] ADULT; ELDER ELDER PER 15 CARE CARE MINUTES URINLS 34029 Mary HANDY DIP 9 LEANDRA Messer STICK/TAB PSC LET REAGNT NON-AUTO MICRSCPY INCONTINE T4541 [facility] 9 HOME HOME [facility] DISPOSABL AGENCY AGENCY E UNDPAD LARGE EA DAY CARE S[address] ADULT; ELDER ELDER PER 15 CARE CARE MINUTES DAY CARE S5[address] ADULT; ELDER ELDER PER 15 CARE CARE MINUTES DAY CARE S5100 [facility] SERVICES [address] [place] [address] ADULT; ELDER ELDER PER 15 CARE CARE MINUTES DAY CARE S5100 [facility] SERVICES [address] [place] [address] ADULT; ELDER ELDER PER 15 CARE CARE MINUTES TRAPEZE E0940 YOSELYN YOSELYN BAR 9 HOME MED HOME MED FREESTAND EQUIP. EQUIP. [facility] COMPLETE WITH GRAB BAR HOS BED E0260 YOSELYN YOSELYN SEMI-ELEC 9 HOME MED HOME MED W/ANY EQUIP. EQUIP. TYPE SIDE [facility] RAIL W/MATTRSS DAY CARE S5100 [facility] SERVICES [address] [place] [address] ADULT; ELDER ELDER PER 15 CARE CARE MINUTES DAY CARE S5100 [facility] SERVICES [address] [place] [address] ADULT; ELDER ELDER PER 15 CARE CARE MINUTES DAY CARE S5[address] ADULT; ELDER ELDER PER 15 CARE CARE MINUTES DAY CARE S[address] ADULT; ELDER ELDER PER 15 CARE CARE MINUTES DAY CARE S5[address] ADULT; ELDER ELDER PER 15 CARE CARE MINUTES DAY CARE S5[address] ADULT; ELDER ELDER PER 15 CARE CARE MINUTES DAY CARE S5[address] ADULT; ELDER ELDER PER 15 CARE CARE MINUTES DAY CARE S5[address] ADULT; ELDER ELDER PER 15 CARE CARE MINUTES DAY CARE S5[address] ADULT; ELDER ELDER PER 15 CARE CARE MINUTES DAY CARE S5100 [facility] [address] [place] [address] ADULT; ELDER ELDER PER 15 CARE CARE MINUTES DAY CARE S5100 [facility]ANDEEP [facility] [address] [place] [address] ADULT; ELDER ELDER PER 15 CARE CARE MINUTES SUSCEPTIB 74800 LAB ANIKA LAB ANIKA LTY STDY 9 [employer]IC [employer] ANTIMICRB HOLDING HOLDING IAL MICRO/AGA R DILUTJ CUL BACT 71024 LAB ANIK[facility] LAB ANIKA AEROBIC 9 [employer] ADDL HOLDING HOLDING METHS DEFINITIV E EA ISOL CULTURE 95874 LAB ANIKA LAB ANIKA BACTERIAL 9 [employer] HOLDING QUANTTATI VE COLONY COUNT URINE CULTURE 74946 LAB ANIKA LAB ANIKA BCT 9 AMERIC AMERIC ISOL&PRSM HOLDING HOLDING PTV ID ISOLATE EA URINE URINLS 67992 Mary HANDY 9 LEANDRA WHITESIDE C STICK/TAB PSC LET REAGNT NON-AUTO MICRSCPY DAY CARE S[address] ADULT; ELDER ELDER PER 15 CARE CARE MINUTES DAY CARE S5[address] ADULT; ELDER ELDER PER 15 CARE CARE MINUTES DAY CARE S5[address] ADULT; ELDER ELDER PER 15 CARE CARE MINUTES DAY CARE S[address] ADULT; ELDER ELDER PER 15 CARE CARE MINUTES CERVICAL L0172 PROSTHETI PROSTHETI COLLAR 9 C&ORTHOTI C&ORTHOTI SEMI-RIGI C C D FOAM ASSOCIATE ASSOCIATE [employer] [facility] PREFAB DAY CARE S[address] ADULT; ELDER ELDER PER 15 CARE CARE MINUTES DAY CARE S[address] ADULT; ELDER ELDER PER 15 CARE CARE MINUTES TRAPEZE E0940 YOSELYN TOPETE BAR 9 HOME MED HOME MED FREESTAND EQUIP. EQUIP. [facility] COMPLETE WITH GRAB BAR HOS BED E0260 YOSELYN TOPETE SEMI-ELEC 9 HOME MED HOME MED W/ANY EQUIP. EQUIP. TYPE SIDE [facility] RAIL W/MATTRSS ADLT SZD T4528 [facility] 9 HOME HOME INCONT HEALTH HEALTH PROD AGENCY AGENCY UNDWEAR XTRA LG EA DAY CARE S[address] ADULT; ELDER ELDER PER 15 CARE CARE MINUTES DAY CARE S5[address] ADULT; ELDER ELDER PER 15 CARE CARE MINUTES DAY CARE S5[address] ADULT; ELDER ELDER PER 15 CARE CARE MINUTES DAY CARE S5[address] ADULT; ELDER ELDER PER 15 CARE CARE MINUTES DAY CARE S[address] ADULT; ELDER ELDER PER 15 CARE CARE MINUTES URINLS 53465 A Mary SMITH DIP 9 LEANDRA WHITESIDE C STICK/TAB PSC LET REAGNT NON-AUTO MICRSCPY INTERMIT A4351 OUMARIWLLY OSEGUERA NATHEN 9 [facility] C[facility]; E CENTERS E CENTERS STRAIGHT TIP W/WO COAT EA DAY CARE S5[address] ADULT; ELDER ELDER PER 15 CARE CARE MINUTES DAY CARE S5[address] ADULT; ELDER ELDER PER 15 CARE CARE MINUTES DAY CARE S5[address] ADULT; ELDER ELDER PER 15 CARE CARE MINUTES DAY CARE S5[address] ADULT; ELDER ELDER PER 15 CARE CARE MINUTES DAY CARE S5[address] ADULT; ELDER ELDER PER 15 CARE CARE MINUTES DAY CARE S5[address] ADULT; ELDER ELDER PER 15 CARE CARE MINUTES DAY CARE S5[address] ADULT; ELDER ELDER PER 15 CARE CARE MINUTES SUSCEPTIB 54313 LAB ANIKA LAB ANIKA LTY STDY 9 [employer]IC [employer] ANTIMICRB HOLDING HOLDING IAL MICRO/AGA R DILUTJ URINLS 44363 Mary HANDY DIP 9 LEANDRA Messer STICK/TAB PSC LET REAGNT NON-AUTO MICRSCPY CULTURE 95789 LAB ANIKA LAB ANIKA BACTERIAL 9 [employer] HOLDING QUANTTATI VE COLONY COUNT URINE CULTURE 84312 LAB ANIKA LAB ANIKA BCT 9 AMERIC AMERIC ISOL&PRSM HOLDING HOLDING PTV ID ISOLATE EA URINE CUL BACT 99791 LAB ANIKA LAB ANIKA AEROBIC 9 [employer] ADDL HOLDING HOLDING METHS DEFINITIV E EA ISOL TRAPEZE E0940 YOSELYN SCHROEDER 9 HOME MED HOME MED FREESTAND EQUIP. EQUIP. [facility] COMPLETE WITH GRAB BAR HOS BED E0260 YOSELYN TOPETE SEMI-ELEC 9 HOME MED HOME MED W/ANY EQUIP. EQUIP. TYPE S[facility] RAIL W/MATTRSS DAY CARE S[address] ADULT; ELDER ELDER PER 15 CARE CARE MINUTES DAY CARE S5[address] ADULT; ELDER ELDER PER 15 CARE CARE MINUTES DAY CARE S5[address] ADULT; ELDER ELDER PER 15 CARE CARE MINUTES DAY CARE S5[address] ADULT; ELDER ELDER PER 15 CARE CARE MINUTES DAY CARE S5[address] ADULT; ELDER ELDER PER 15 CARE CARE MINUTES DAY CARE S5[address] ADULT; ELDER ELDER PER 15 CARE CARE MINUTES DAY CARE S5[address] ADULT; ELDER ELDER PER 15 CARE CARE MINUTES INTERMIT A4351 OUMAR SENA 9 [facility] C[facility]; E CENTERS E CENTERS STRAIGHT TIP W/WO COAT EA DAY CARE S5[address] ADULT; ELDER ELDER PER 15 CARE CARE MINUTES DAY CARE S[address] ADULT; ELDER ELDER PER 15 CARE CARE MINUTES ADLT SZD T4528 [facility] 9 HOME HOME [facility] HEALTH HEALTH PROD AGENCY AGENCY UNDWEAR XTRA LG EA DAY CARE S[address] ADULT; ELDER ELDER PER 15 CARE [...] SUPPLIES SUPPLIES OF 100 DAY CARE S[address] ADULT; ELDER ELDER PER 15 CARE CARE MINUTES DAY CARE S[address] ADULT; ELDER ELDER PER 15 CARE CARE MINUTES DAY CARE S[address] ADULT; ELDER ELDER PER 15 CARE CARE MINUTES DAY CARE S[address] ADULT; ELDER ELDER PER 15 CARE CARE MINUTES SUSCEPTIB 03173 LAB ANIKA LAB ANIKA LTY STDY 8 [employer]IC [employer] ANTIMICRB HOLDING HOLDING IAL MICRO/AGA R DILUTJ CUL BACT 82548 LAB ANIKA LAB ANIKA AEROBIC 8 AMERIC [employer] ADDL HOLDING HOLDING METHS DEFINITIV E EA ISOL CULTURE 31774 LAB ANIKA LAB ANIKA BCT 8 AMERIC AMERIC ISOL&PRSM HOLDING HOLDING PTV ID ISOLATE EA URINE CULTURE 80649 LAB ANIKA LAB ANIKA BACTERIAL 8 [employer] HOLDING HOLDING QUANTTATI VE COLONY COUNT URINE DAY CARE S[address] ADULT; ELDER ELDER PER 15 CARE CARE MINUTES TRAPEZE E0940 YOSELYN YOSELYN BAR 8 HOME MED HOME MED FREESTAND EQUIP. EQUIP. [facility] COMPLETE WITH GRAB BAR HOS BED E0260 YOSELYN YOSELYN SEMI-ELEC 8 HOME MED HOME MED W/ANY EQUIP. EQUIP. TYPE SIDE [facility] RAIL W/MATTRSS DAY CARE S[address] ADULT; ELDER ELDER PER 15 CARE CARE MINUTES DAY CARE S[address] ADULT; ELDER ELDER PER 15 CARE CARE MINUTES DAY CARE S[address] ADULT; ELDER ELDER PER 15 CARE CARE MINUTES DAY CARE S[address] ADULT; ELDER ELDER PER 15 CARE CARE MINUTES DAY CARE S[address] ADULT; ELDER ELDER PER 15 CARE CARE MINUTES DAY CARE S[address] ADULT; ELDER ELDER PER 15 CARE CARE MINUTES DAY CARE S[address] ADULT; ELDER ELDER PER 15 CARE CARE MINUTES DAY CARE S[address] ADULT; ELDER ELDER PER 15 CARE CARE MINUTES DAY CARE S[address] ADULT; ELDER ELDER PER 15 CARE CARE MINUTES INTERMIT A4351 OUMAR SENA 8 [facility] C[facility]; E CENTERS E CENTERS STRAIGHT TIP W/WO COAT EA DAY CARE S[address] ADULT; ELDER ELDER PER 15 CARE CARE MINUTES DAY CARE S5100 [facility] SERVICES [address] [place] [address] ADULT; ELDER ELDER PER 15 CARE CARE MINUTES DAY CARE S5100 [facility] SERVICES [address] [place] [address] ADULT; ELDER ELDER PER 15 CARE CARE MINUTES DAY CARE S5100 [facility] [address] [place] [address] ADULT; ELDER ELDER PER 15 CARE CARE MINUTES TRAPEZE E0940 YOSELYN SCHROEDER 8 HOME MED HOME MED FREESTAND EQUIP. EQUIP. ING [facility] COMPLETE WITH GRAB [facility] DAY CARE S[address] ADULT; ELDER ELDER PER 15 CARE CARE MINUTES HOS BED E0260 YOSELYN TOPETE SEMI-ELEC 8 HOME MED HOME MED W/ANY EQUIP. EQUIP. TYPE [facility] RAIL W/MATTRSS DAY CARE S[address] ADULT; ELDER ELDER PER 15 CARE CARE MINUTES DAY CARE S[address] ADULT; ELDER ELDER PER 15 CARE CARE MINUTES DAY CARE S[address] ADULT; ELDER ELDER PER 15 CARE CARE MINUTES DAY CARE S[address] ADULT; ELDER ELDER PER 15 CARE CARE MINUTES DAY CARE S[address] ADULT; ELDER ELDER PER 15 CARE CARE MINUTES ADLT SZD T4528 [facility] 8 HOME HOME [facility] PROD AGENCY AGENCY UNDWEAR XTRA LG EA DAY CARE S5100 [facility] SERVICES [address] [place] [address] ADULT; ELDER ELDER PER 15 CARE CARE MINUTES DAY CARE S5100 [facility] SERVICES [address] [place] [address] ADULT; ELDER ELDER PER 15 CARE CARE MINUTES DAY CARE S5100 [facility] [address] [place] [address] ADULT; ELDER ELDER PER 15 CARE CARE MINUTES DAY CARE S5100 [facility] SERVICES [address] [place] [address] ADULT; ELDER ELDER PER 15 CARE CARE MINUTES DAY CARE S[address] ADULT; ELDER ELDER PER 15 CARE CARE MINUTES DAY CARE S[address] ADULT; ELDER ELDER PER 15 CARE CARE MINUTES URINLS 68301 Mary HANDY 8 LEANDRA Messer STICK/TAB PSC LET REAGNT NON-AUTO MICRSCPY ADMINISTR G0008 RAMANDEEP OLSONON ATION OF 8 [facility] CENTER VIRUS VACCINE DAY CARE S[address] ADULT; ELDER ELDER PER 15 CARE CARE MINUTES IIV3 13896 [facility] VACCINE 8 [facility] SPLIT PRIDE CENTER VIRUS 0.5 ML DOSAGE IM USE DAY CARE S[address] ADULT; ELDER ELDER PER 15 CARE CARE MINUTES DAY CARE S5[address] ADULT; ELDER ELDER PER 15 CARE CARE MINUTES DAY CARE S[address] ADULT; ELDER ELDER PER 15 CARE CARE MINUTES DAY CARE S[address] ADULT; ELDER ELDER PER 15 CARE CARE MINUTES DAY CARE S[address] ADULT; ELDER ELDER PER 15 CARE CARE MINUTES DAY CARE S[address] ADULT; ELDER ELDER PER 15 CARE CARE MINUTES TRAPEZE E0940 YOSELYN TOPETE BAR 8 HOME MED HOME MED FREESTAND EQUIP. EQUIP. [facility] COMPLETE WITH GRAB BAR CULTURE 24204 LAB ANIKA LAB ANIKA BACTERIAL 8 [employer] HOLDING HOLDING QUANTTATI VE COLONY COUNT URINE CUL BACT 19092 LAB ANIKA LAB ANIKA AEROBIC 8 [employer]IC [employer] ADDL HOLDING HOLDING METHS DEFINITIV E EA ISOL CULTURE 94538 LAB ANIKA LAB ANIKA BCT 8 AMERIC AMERIC ISOL&PRSM HOLDING HOLDING PTV ID ISOLATE EA URINE SUSCEPTIB 43346 LAB ANIKA LAB ANIKA LTY STDY 8 AMERIC AMERIC ANTIMICRB HOLDING HOLDING IAL MICRO/AGA R DILUTJ HOS BED E0260 YOSELYN TOPETE SEMI-ELEC 8 HOME MED HOME MED W/ANY EQUIP. EQUIP. TYPE [facility] RAIL W/MATTRSS INTERMIT A4351 OUMAR OUMAR URIN 8 [facility] CATH; E CENTERS E CENTERS STRAIGHT TIP W/WO COAT EA DAY CARE S[address] ADULT; ELDER ELDER PER 15 CARE CARE MINUTES DAY CARE S[address] ADULT; ELDER ELDER PER 15 CARE CARE MINUTES DAY CARE S[address] ADULT; ELDER ELDER PER 15 CARE CARE MINUTES DAY CARE S[address] ADULT; ELDER ELDER PER 15 CARE CARE MINUTES DAY CARE S[address] ADULT; ELDER ELDER PER 15 CARE CARE MINUTES DAY CARE S[address] ADULT; ELDER ELDER PER 15 CARE CARE MINUTES DAY CARE S[address] ADULT; ELDER ELDER PER 15 CARE CARE MINUTES DAY CARE S[address] ADULT; ELDER ELDER PER 15 CARE CARE MINUTES DAY CARE S[address] ADULT; ELDER ELDER PER 15 CARE CARE MINUTES ADLT SZD T4528 [facility] 8 [facility] PROD AGENCY AGENCY UNDWEAR XTRA [...] MON OWN PT EA DAY CARE S5100 [facility] SERVICES [address] [place] [address] ADULT; ELDER ELDER PER 15 CARE CARE MINUTES DAY CARE S[address] ADULT; ELDER ELDER PER 15 CARE CARE MINUTES DAY CARE S[address] ADULT; ELDER ELDER PER 15 CARE CARE MINUTES DAY CARE S[address] ADULT; ELDER ELDER PER 15 CARE CARE MINUTES DAY CARE S5100 [facility] SERVICES [address] [place] [address] ADULT; ELDER ELDER PER 15 CARE CARE MINUTES DAY CARE S5100 [facility] [address] [place] [address] ADULT; ELDER ELDER PER 15 CARE CARE MINUTES DAY CARE S5100 [facility] [address] [place] [address] ADULT; ELDER ELDER PER 15 CARE CARE MINUTES DAY CARE S5100 [facility] [address] [place] [address] ADULT; ELDER ELDER PER 15 CARE CARE MINUTES DAY CARE S5100 [facility] [address] [place] [address] ADULT; ELDER ELDER PER 15 CARE CARE MINUTES DAY CARE S5100 [facility] [address] [place] [address] ADULT; ELDER ELDER PER 15 CARE CARE MINUTES DAY CARE S5100 [facility] [address] [place] [address] ADULT; ELDER ELDER PER 15 CARE CARE MINUTES DAY CARE S5100 [facility] [address] [place] [address] ADULT; ELDER ELDER PER 15 CARE CARE MINUTES DAY CARE S5100 [address] ADULT; ELDER ELDER PER 15 CARE CARE MINUTES DAY CARE S5100 [facility] SERVICES [address] [place] [address] ADULT; ELDER ELDER PER 15 CARE CARE MINUTES DAY CARE S5100 [facility] [address] [place] [address] ADULT; ELDER ELDER PER 15 CARE CARE MINUTES DAY CARE S5100 [facility] [address] [place] [address] ADULT; ELDER ELDER PER 15 CARE CARE MINUTES DAY CARE S[address] ADULT; ELDER ELDER PER 15 CARE CARE MINUTES DAY CARE S5100 [facility] [address] [place] [address] ADULT; ELDER ELDER PER 15 CARE CARE MINUTES DAY CARE S5100 [facility] [address] [place] [address] ADULT; ELDER ELDER PER 15 CARE CARE MINUTES DAY CARE S5100 [facility] [address] [place] [address] ADULT; ELDER ELDER PER 15 CARE CARE MINUTES DAY CARE S5100 [facility] [address] [place] [address] ADULT; ELDER ELDER PER 15 CARE CARE MINUTES DAY CARE S5100 [facility] [address] [place] [address] ADULT; ELDER ELDER PER 15 CARE CARE MINUTES [facility] [address] ROBER, ROBER, MEDICAL 8 KIT A KIT A XM&EVAL COMPRE NEW PT 1/> VST DAY CARE S5100 [facility] [address] [place] [address] ADULT; ELDER ELDER PER 15 CARE CARE MINUTES TRAPEZE E0940 YOSELYNKAY SCHROEDER 8 HOME MED HOME MED FREESTAND EQUIP. [facility]. [facility] COMPLETE WITH GRAB [facility] E0260 YOSELYN YOSELYN SEMI-ELEC 8 HOME MED HOME MED W/ANY EQUIP. EQUIP. TYPE SIDE [facility] RAIL W/MATTRSS DAY CARE S5100 [facility] [address] [place] [address] ADULT; ELDER ELDER PER 15 CARE CARE MINUTES DAY CARE S5100 [facility] [address] [place] [address] ADULT; ELDER ELDER PER 15 CARE CARE MINUTES DAY CARE S5100 [facility] [address] [place] [address] ADULT; ELDER ELDER PER 15 CARE CARE MINUTES DAY CARE S5100 [facility] [address] [place] [address] ADULT; ELDER ELDER PER 15 CARE CARE MINUTES DAY CARE S5100 [facility] [address] [place] [address] ADULT; ELDER ELDER PER 15 CARE CARE MINUTES DAY CARE S5100 [facility] [address] [place] [address] ADULT; ELDER ELDER PER 15 CARE CARE MINUTES DAY CARE S5100 [facility] [address] [place] [address] ADULT; ELDER ELDER PER 15 CARE CARE MINUTES INTERMIT [id number] OUMAR SENA 8 [facility] CATH; E CENTERS E CENTERS STRAIGHT TIP W/WO COAT EA DAY CARE S5100 [facility] [address] [place] [address] ADULT; ELDER ELDER PER 15 CARE CARE MINUTES DAY CARE S5100 [facility] [address] [place] [address] ADULT; ELDER ELDER PER 15 CARE CARE MINUTES DAY CARE S5100 [facility] [address] [place] [address] ADULT; ELDER ELDER PER 15 CARE CARE MINUTES DAY CARE S5100 [facility] [address] [place] [address] ADULT; ELDER ELDER PER 15 CARE CARE MINUTES DAY CARE S5100 [facility] [address] [place] [address] ADULT; ELDER ELDER PER 15 CARE CARE MINUTES DAY CARE S5100 [facility] [address] [place] [address] ADULT; ELDER ELDER PER 15 CARE CARE MINUTES DAY CARE S5100 [facility] [address] [place] [address] ADULT; ELDER ELDER PER 15 CARE CARE MINUTES INCONTINE T4541 [facility] NCE 8 HOME HOME PRODUCT [facility] DISPOSABL AGENCY AGENCY E UNDPAD LARGE EA ADLT SZD [id number] MADELINE CORREA DISPBL 8 HOME HOME INCONT HEALTH HEALTH PROD AGENCY AGENCY UNDWEAR XTRA LG EA DAY CARE S5100 [facility] [address] [place] [address] ADULT; ELDER ELDER PER 15 CARE CARE MINUTES DAY CARE S5100 [facility] [address] [place] [address] ADULT; ELDER ELDER PER 15 CARE CARE MINUTES DAY CARE S5100 [facility] [address] [place] [address] ADULT; ELDER ELDER PER 15 CARE CARE MINUTES TRAPEZE [id number] [facility] BAR 8 HOME MED HOME MED FREESTAND EQUIP. EQUIP. ING [facility] COMPLETE WITH [facility] BED [id number] [facility] TOPETE SEMI-ELEC 8 HOME MED HOME MED W/ANY EQUIP. EQUIP. TYPE SIDE [facility] RAIL W/MATTRSS DAY CARE S5100 [facility] [address] ADULT; ELDER ELDER PER 15 CARE CARE MINUTES DAY CARE S5100 [facility] [address] ADULT; ELDER ELDER PER 15 CARE CARE MINUTES DAY CARE S5100 [facility] [address] ADULT; ELDER ELDER PER 15 CARE CARE MINUTES ECG [id number] [facility] STODDARD, ROUTINE 8 [facility] W/LEAST PROF SERV 12 LDS I&R ONLY [place] NFS [id number] [facility] THER 8 [facility] PROPH/DX INC INC 1ST >1 HR COMPREHEN [id number] [facility] SIVE 8 [facility] METABOLIC INC INC PANEL CREATINE [id number] [facility] KINASE MB 8 [facility] FRACTION INC INC ONLY ECG [id number] [facility] ROUTINE 8 [facility] ECG INC INC W/LEAST 12 LDS TRCG ONLY W/O I&R PROTHROMB [id number] [facility] IN TIME 8 [facility] [place] [address] [facility] TROPONIN 8 [facility] QUANTITAT INC INC TAYLER BLOOD 76623 [facility]ILL[facility] COUNT 8 [facility] COMPLETE INC INC AUTO&AUTO DIFRNTL WBC DRUG 00578 RAM[facility]ILLON ASSAY 8 [facility] VALPROIC INC INC DIPROPYLA CETIC ACID TOTAL GROUND A0425 [facility] 8 AMBULANCE AMBULANCE PER SERVICE SERVICE STATUTE MILE AMB A0427 [facility] 8 AMBULANCE AMBULANCE ALS SERVICE SERVICE [place] [address] [place] [address] [facility] [place], HEAD/BRAI 8 MEDICAL YONY P N W/O IMAGING CONTRAST ASSOCIATE MATERIAL S THROMBOPL 78856 RAMANDEEP SABILLON ASTIN 8 [facility] TIME INC INC PARTIAL PLASMA/WH OLE BLOOD 3D 86845 [facility] SHERMAN[place], RENDERING 8 MEDICAL YONY P IMAGING W/INTERP& ASSOCIATE POSTPROC S DIFF WORK STATION CREATINE [id number] RAMANDEEP SABILLON KINASE 8 [facility] TOTAL INC INC DAY CARE S5100 RAMANDEEP SABILLON [address] ADULT; ELDER ELDER PER 15 CARE CARE MINUTES DAY CARE S[address]100 [address] ADULT; ELDER ELDER PER 15 CARE CARE MINUTES DAY CARE S5100 [facility] [address] ADULT; ELDER ELDER PER 15 CARE CARE MINUTES DAY CARE S[address] ADULT; ELDER ELDER PER 15 CARE CARE MINUTES BLD GLU A4253 M E D M E D TEST/REAG 8 SUPPLIES SUPPLIES T STRIPS HOME BLD GLU SAT-50 DAY CARE S5[address] ADULT; ELDER ELDER PER 15 CARE CARE MINUTES DAY CARE S5100 [address] ADULT; ELDER ELDER PER 15 CARE CARE MINUTES TRAPEZE E0940 YOSELYN SCHROEDER 8 HOME MED HOME MED FREESTAND EQUIP. EQUIP. [facility] COMPLETE WITH ART SCH[facility] HOS BED E0260 YOSELYN TOPETE SEMI-ELEC 8 HOME MED HOME MED W/ANY EQUIP. EQUIP. TYPE SIDE [facility] RAIL W/MATTRSS DAY CARE S[address] ADULT; ELDER ELDER PER 15 CARE CARE MINUTES DAY CARE S[address] ADULT; ELDER ELDER PER 15 CARE CARE MINUTES DAY CARE S[address] ADULT; ELDER ELDER PER 15 CARE CARE MINUTES MEDICAL 25728 DHS/CO RAMANDEEP [address] ASSMT&IVN BANK ACCT TJ INDIV EACH 15 [place] DAY CARE S[address] ADULT; ELDER ELDER PER 15 CARE CARE MINUTES DAY CARE S5[address] ADULT; ELDER ELDER PER 15 CARE CARE MINUTES ADLT SZD T4528 [facility] 8 HOME HOME INCONT HEALTH HEALTH PROD AGENCY AGENCY UNDWEAR XTRA LG EA DAY CARE S[address] ADULT; ELDER ELDER PER 15 CARE CARE MINUTES DAY CARE S5[address] ADULT; ELDER ELDER PER 15 CARE CARE MINUTES DAY CARE S[address] ADULT; ELDER ELDER PER 15 CARE CARE MINUTES DAY CARE S[address] ADULT; ELDER ELDER PER 15 CARE CARE MINUTES TRAPEZE E0940 YOSELYN SCHROEDER 8 HOME MED HOME MED FREESTAND EQUIP. EQUIP. [facility] COMPLETE WITH GRAB [facility] HOS BED E0260 YOSELYN TOPETE SEMI-ELEC 8 HOME MED HOME MED W/ANY EQUIP. EQUIP. TYPE SIDE [facility] RAIL W/MATTRSS DAY CARE S[address] ADULT; ELDER ELDER PER 15 CARE CARE MINUTES DAY CARE S5[address] ADULT; ELDER ELDER PER 15 CARE CARE MINUTES DAY CARE S5[address] ADULT; ELDER ELDER PER 15 CARE CARE MINUTES DAY CARE S5[address] ADULT; ELDER ELDER PER 15 CARE CARE MINUTES DAY CARE S5[address] ADULT; ELDER ELDER PER 15 CARE CARE MINUTES DAY CARE S5[address] ADULT; ELDER ELDER PER 15 CARE CARE MINUTES DAY CARE S[address] ADULT; ELDER ELDER PER 15 CARE CARE MINUTES INTERMIT A4351 [facility] SENA 8 [facility] CATH; E CENTERS E CENTERS STRAIGHT TIP W/WO COAT EA DAY CARE S[address] ADULT; ELDER ELDER PER 15 CARE CARE MINUTES DAY CARE S5100 [facility] SERVICES [address] [place] [address] ADULT; ELDER ELDER PER 15 CARE CARE MINUTES DAY CARE S5100 [facility] [address] [place] [address] ADULT; ELDER ELDER PER 15 CARE CARE MINUTES DAY CARE S[address] ADULT; ELDER ELDER PER 15 CARE CARE MINUTES DAY CARE S[address] ADULT; ELDER ELDER PER 15 CARE CARE MINUTES DAY CARE S[address] ADULT; ELDER ELDER PER 15 CARE CARE MINUTES DAY CARE S[address] ADULT; ELDER ELDER PER 15 CARE CARE MINUTES DAY CARE S5[address] ADULT; ELDER ELDER PER 15 CARE CARE MINUTES DAY CARE S[address] ADULT; ELDER ELDER PER 15 CARE CARE MINUTES DAY CARE S[address] ADULT; ELDER ELDER PER 15 CARE CARE MINUTES DAY CARE S[address] ADULT; ELDER ELDER PER 15 CARE CARE MINUTES DAY CARE S5[address] ADULT; ELDER ELDER PER 15 CARE CARE MINUTES DAY CARE S[address] ADULT; ELDER ELDER PER 15 CARE CARE MINUTES TRAPEZE E0940 YOSELYN SCHROEDER 8 HOME MED HOME MED FREESTAND EQUIP. EQUIP. ING [facility] COMPLETE WITH GRAB [facility] E0260 YOSELYN TOPETE SEMI-ELEC 8 HOME MED HOME MED W/ANY EQUIP. EQUIP. TYPE SIDE [facility] RAIL W/MATTRSS AIR PRESS E0197 YOSELYN YOSELYN PAD 8 HOME MED HOME MED MATTRSS EQUIP. EQUIP. [employer] MATTRSS LENGTH&WI DT DAY CARE S[address] ADULT; ELDER ELDER PER 15 CARE CARE MINUTES DAY CARE S5[address] ADULT; ELDER ELDER PER 15 CARE CARE MINUTES DAY CARE S5[address] ADULT; ELDER ELDER PER 15 CARE CARE MINUTES DAY CARE S5[address] ADULT; ELDER ELDER PER 15 CARE CARE MINUTES DAY CARE S5[address] ADULT; ELDER ELDER PER 15 CARE CARE MINUTES DAY CARE S[address] ADULT; ELDER ELDER PER 15 CARE CARE MINUTES DAY CARE S5[address] ADULT; ELDER ELDER PER 15 CARE CARE MINUTES ADLT SZD T4528 [facility] 8 HOME HOME CRITICAL ACCESS HOSPITAL HEALTH PROD AGENCY AGENCY UNDWEAR XTRA LG EA DAY CARE S[address] ADULT; ELDER ELDER PER 15 CARE CARE MINUTES DAY CARE S[address] ADULT; ELDER ELDER PER 15 CARE CARE MINUTES DAY CARE S[address] ADULT; ELDER ELDER PER 15 CARE CARE MINUTES BLD GLU A4253 M E D M E D TEST/REAG 8 SUPPLIES SUPPLIES T STRIPS HOME BLD GLU SAT-50 DAY CARE S[address] ADULT; ELDER ELDER PER 15 CARE CARE MINUTES DAY CARE S5[address] ADULT; ELDER ELDER PER 15 CARE CARE MINUTES DAY CARE S[address] ADULT; ELDER ELDER PER 15 CARE CARE MINUTES DAY CARE S[address] ADULT; ELDER ELDER PER 15 CARE CARE MINUTES DAY CARE S[address] ADULT; ELDER ELDER PER 15 CARE CARE MINUTES DAY CARE S[address] ADULT; ELDER ELDER PER 15 CARE CARE MINUTES DAY CARE S5100 [employer] [facility] [address] [place] [address] ADULT; ELDER ELDER PER 15 CARE CARE MINUTES DAY CARE S5100 RAMANDEEP [employer] [address] [place] [address] ADULT; ELDER ELDER PER 15 CARE CARE MINUTES DAY CARE S5100 RAMANDEEP RAMANDEEP SERVICES [address] [place] [address] ADULT; ELDER ELDER PER 15 CARE CARE MINUTES DAY CARE S5100 RAMANDEEP [employer] [address] [place] [address] ADULT; ELDER ELDER PER 15 CARE CARE MINUTES INTERMIT A4351 OUMAR SENA 8 [facility] CATH; E CENTERS E CENTERS STRAIGHT TIP W/WO COAT EA DAY CARE S5100 RAMANDEEP RAMANDEEP SERVICES [address] [place] [address] ADULT; ELDER ELDER PER 15 CARE CARE MINUTES DAY CARE S5100 RAMANDEEP RAMANDEEP SERVICES [address] [place] [address] ADULT; ELDER ELDER PER 15 CARE CARE MINUTES DAY CARE S5100 RAMANDEEP RAMANDEEP [address] ADULT; ELDER ELDER PER 15 CARE CARE MINUTES DAY CARE S5100 RAMANDEEP [employer] [address] [place] [address] ADULT; ELDER ELDER PER 15 CARE CARE MINUTES ADLT SZD [id number] [facility] 8 HOME HOME CRITICAL ACCESS HOSPITAL HEALTH PROD AGENCY AGENCY UNDWEAR XTRA LG EA DAY CARE S5100 RAMANDEEP RAMANDEEP [address] ADULT; ELDER ELDER PER 15 CARE CARE MINUTES DAY CARE S5100 RAMANDEEP [employer] [address] [place] [address] ADULT; ELDER ELDER PER 15 CARE CARE MINUTES DAY CARE S5100 RAMANDEEP [employer] [address] [place] [address] ADULT; ELDER ELDER PER 15 CARE CARE MINUTES DAY CARE S5100 RAMANDEEP [employer] [address] [place] [address] ADULT; ELDER ELDER PER 15 CARE CARE MINUTES DAY CARE S5100 RAMANDEEP [employer] [address] [place] [address] ADULT; ELDER ELDER PER 15 CARE CARE MINUTES DAY CARE S5100 RAMANDEEP [employer] [address] [place] [address] ADULT; ELDER ELDER PER 15 CARE CARE MINUTES DAY CARE S5100 RAMANDEEP [employer] [address] [place] [address] ADULT; ELDER ELDER PER 15 CARE CARE MINUTES DAY CARE S5100 RAMANDEEP [employer] [address] [place] [address] ADULT; ELDER ELDER PER 15 CARE CARE MINUTES DAY CARE S5[address] [employer] [address] [place] [address] ADULT; ELDER ELDER PER 15 CARE CARE MINUTES DAY CARE S5100 RAMANDEEP RAMANDEEP SERVICES [address] [place] [address] ADULT; ELDER ELDER PER 15 CARE CARE MINUTES DAY CARE S5100 [facility] [address] [place] [address] ADULT; ELDER ELDER PER 15 CARE CARE MINUTES DAY CARE S5100 RAMANDEEP RAMANDEEP SERVICES [address] [place] [address] ADULT; ELDER ELDER PER 15 CARE CARE MINUTES DAY CARE S5100 RAMANDEEP RAMANDEEP SERVICES [address] [place] [address] ADULT; ELDER ELDER PER 15 CARE CARE MINUTES DAY CARE S[address] ADULT; ELDER ELDER PER 15 CARE CARE MINUTES DAY CARE S5100 RAMANDEEP RAMANDEEP SERVICES [address] [place] [address] ADULT; ELDER ELDER PER 15 CARE CARE MINUTES DAY CARE S[address] ADULT; ELDER ELDER PER 15 CARE CARE MINUTES DAY CARE S5100 [address] ADULT; ELDER ELDER PER 15 CARE CARE MINUTES DAY CARE S[address] ADULT; ELDER ELDER PER 15 CARE CARE MINUTES DAY CARE S5100 [address] ADULT; ELDER ELDER PER 15 CARE CARE MINUTES ADLT SZD [id number] [facility] DIS[facility] 8 HOME HOME INCONT HEALTH HEALTH PROD AGENCY AGENCY UNDWEAR XTRA LG EA INCONTINE T4541 [facility] NCE 8 HOME HOME PRODUCT HEALTH HEALTH DISPOSABL AGENCY AGENCY E UNDPAD LARGE EA DAY CARE S5100 [facility] [address] ADULT; ELDER ELDER PER 15 CARE CARE MINUTES DAY CARE S[address] ADULT; ELDER ELDER PER 15 CARE CARE MINUTES Encounters Encounter Start End Date Code Location Performer Type Date HOME [facility] 0 HOME OUTPATIEN [facility]ALTH [facility] - 0 0 [facility] T HOME [facility], 0 0 DIST OTHER HEALTH DEPT RAILWAY EQUIPMENT OPERATOR HOME [facility], 0 0 DIST OTHER HEALTH DEPT RAILWAY EQUIPMENT OPERATOR HOME [facility] 0 0 HOME OUTPATIEN HEALTH T AGENCY HOME [facility], 0 0 DIST OTHER HEALTH DEPT RAILWAY EQUIPMENT OPERATOR OFFICE 08067 CHASE GALARZAPATIEN 9 9 LEANDRA Hernandez T VISIT PSC 15 MINUTES OFFICE 23343 CHASE MCGREGORPATIJOSE FRANCISCO 9 9 LEANDRA PETIT T VISIT 5 PSC MINUTES HOME [facility], 9 9 DIST OTHER HEALTH DEPT RAILWAY EQUIPMENT OPERATOR HOME [facility], 9 9 HOME OUTPATIEN HEALTH T AGENCY OFFICE 20293 TERRY RUIZ 9 9 [facility] T VISIT SERV 15 FOUNDATIO MINUTES HOME [facility], 9 9 DIST OTHER HEALTH DEPT RAILWAY EQUIPMENT OPERATOR HOME [facility], 9 9 HOME OUTPATIEN HEALTH T [facility] RAMANDEEP - 9 9 [facility] OUTPATIEN INC T HOME [facility], 9 9 DIST OTHER HEALTH DEPT RAILWAY EQUIPMENT OPERATOR OFFICE 81898 TIM SCHULTE, CONSULTBERTRAND 9 9 MEDICAL NILDA ION SERV NEW/ESTAB FOUNDATIO PATIENT 60 MIN HOME [facility], 9 9 DIST OTHER HEALTH DEPT RAILWAY EQUIPMENT OPERATOR OFFICE 24702 Mary HANDYPATIEN 9 9 LEANDRA Rhodes VISIT PSC 15 MINUTES OFFICE 41714 Mary HANDYPATIEN 9 9 LEANDRA Messer T VISIT PSC 15 MINUTES HOME [facility], 9 9 DIST OTHER HEALTH DEPT RAILWAY EQUIPMENT OPERATOR HOME [facility], 9 9 HOME OUTPATIEN HEALTH T [facility] RAMANDEEP - 9 9 [facility] OUTPATIEN INC T HOME [facility], 9 9 DIST OTHER HEALTH DEPT RAILWAY EQUIPMENT OPERATOR HOME [facility], 9 9 DIST OTHER HEALTH DEPT RAILWAY EQUIPMENT OPERATOR HOME [facility], 9 9 HOME OUTPATIEN HEALTH T AGENCY OFFICE 74662 Mary MANLEY OUTPATIEN 9 9 LEANDRA Hernandez T VISIT PSC 15 MINUTES HOME [facility], 9 9 DIST OTHER HEALTH DEPT RAILWAY EQUIPMENT OPERATOR OFFICE 99610 Mary ALMANZAR OUTPATIEN 9 9 LEANDRA PETIT T VISIT 5 PSC MINUTES OFFICE 47571 Mary MANLEY OUTPATIEN 9 9 LEANDRA Hernandez T VISIT PSC 15 MINUTES HOME [facility], 9 9 DIST OTHER HEALTH DEPT RAILWAY EQUIPMENT OPERATOR HOME [facility], 9 9 HOME OUTPATIEN HEALTH T AGENCY OFFICE 79740 DHS/CO RAM[facility]DEEP OUTPATIEN 9 9 HEALTH CO HEALTH T VISIT [facility] 15 BANK ACCT MINUTES HOME [facility], 9 9 DIST OTHER HEALTH DEPT RAILWAY EQUIPMENT OPERATOR HOME [facility], 9 9 DIST OTHER HEALTH DEPT RAILWAY EQUIPMENT OPERATOR OFFICE 85040 Mary HANDY OUTPATIEN 9 9 LEANDRA Messer T VISIT PSC 15 MINUTES HOME [facility], 9 9 HOME OUTPATIEN HEALTH T AGENCY HOME [facility], 9 9 DIST OTHER HEALTH DEPT RAILWAY EQUIPMENT OPERATOR OFFICE 70656 Mary HANDY OUTPATIEN 9 9 LEANDRA Messer T VISIT 5 PSC MINUTES HOME [facility], 9 9 HOME OUTPATIEN HEALTH T AGENCY HOME [facility], 9 9 DIST OTHER HEALTH DEPT RAILWAY EQUIPMENT OPERATOR HOME [facility], 9 9 DIST OTHER HEALTH DEPT RAILWAY EQUIPMENT OPERATOR OFFICE 95537 Mary HANDY OUTPATIEN 9 9 LEANDRA Rhodes VISIT 5 PSC MINUTES HOME [facility], 9 9 HOME OUTPATIEN HEALTH T AGENCY OFFICE 87438 Mary HANDY OUTPATIEN 9 9 LEANDRA Rhodes VISIT 5 PSC MINUTES OFFICE 43911 Mary HANDY OUTPATIEN 9 9 LEANDRA Rhodes VISIT PSC 15 MINUTES HOME [facility], 9 9 DIST OTHER HEALTH DEPT RAILWAY EQUIPMENT OPERATOR OFFICE 97920 Mary HANDY OUTPATIEN 9 9 LEANDRA Rhodes VISIT 5 PSC MINUTES HOME [facility], 9 9 DIST OTHER HEALTH DEPT RAILWAY EQUIPMENT OPERATOR HOME [facility], 9 9 HOME OUTPATIEN HEALTH T AGENCY HOME [facility], 8 8 DIST OTHER HEALTH DEPT RAILWAY EQUIPMENT OPERATOR HOME [facility], 8 8 HOME OUTPATIEN HEALTH T AGENCY HOME [facility], 8 8 DIST OTHER HEALTH DEPT RAILWAY EQUIPMENT OPERATOR OFFICE 98855 Mary HANDY OUTPATIEN 8 8 LEANDRA Rhodes VISIT 5 PSC MINUTES HOME [facility], 8 8 DIST OTHER HEALTH DEPT RAILWAY EQUIPMENT OPERATOR HOME [facility] 8 8 HOME OUTPATIEN HEALTH T AGENCY HOME [facility], 8 8 DIST OTHER HEALTH DEPT RAILWAY EQUIPMENT OPERATOR HOME [facility] 8 8 DIST OTHER HEALTH DEPT RAILWAY EQUIPMENT OPERATOR HOME [facility], 8 8 HOME OUTPATIEN HEALTH T AGENCY OFFICE 90228 Mary HANDY OUTPATIEN 8 8 LEANDRA Rhodes VISIT PSC 15 MINUTES HOSPITAL [facility] - 8 8 [facility] OUTPATIEN INC T EMERGENCY 70698 [facility]EP 8 8 [facility] DEPARTMEN INC T VISIT HIGH/URGE NT SEVERITY EMERGENCY 13104 JEEVAN MARINOUriel, 8 8 [facility] T VISIT ON MODERATE SEVERITY HOME [facility], 8 8 DIST OTHER HEALTH DEPT RAILWAY EQUIPMENT OPERATOR OFFICE 24273 Mary HANDY OUTPATIJOSE FRANCISCO 8 8 LEANDRA Messer T VISIT [facility] 15 MINUTES HOME [facility], 8 8 DIST OTHER HEALTH DEPT RAILWAY EQUIPMENT OPERATOR HOME [facility] 8 8 HOME OUTPATIEN HEALTH T AGENCY [facility], 8 8 DIST OTHER HEALTH DEPT RAILWAY EQUIPMENT OPERATOR [facility], [facility] 8 HOME OUTPATIEN HEALTH T AGENCY [facility], 8 8 DIST OTHER HEALTH DEPT RAILWAY EQUIPMENT OPERATOR OFFICE 90871 DHS/CO RAM[facility]DEEP OUTPATIEN 8 8 HEALTH CO HEALTH T VISIT [facility] 10 BANK ACCT MINUTES HOME [facility], 8 8 DIST OTHER HEALTH DEPT RAILWAY EQUIPMENT OPERATOR HOME [facility], 8 8 HOME OUTPATIEN HEALTH T AGENCY OFFICE 72468 DHS/CO RAMANDEEP OUTPATIEN 8 8 HEALTH CO HEALTH T VISIT [facility] 15 BANK ACCT MINUTES HOME [facility], 8 8 DIST OTHER HEALTH DEPT RAILWAY EQUIPMENT OPERATOR HOME [facility], 8 8 HOME OUTPATIEN HEALTH T AGENCY [facility], 8 8 DIST OTHER HEALTH DEPT RAILWAY EQUIPMENT OPERATOR
--- OUTSIDE RECORDS SUMMARY | 2016-12-16 18:32 | External Medical Summary Rpt ---
Author Author , Organization [employer] Address Unknown Phone Unavailable Care Team Providers Care Hot Roll Inspector Name Role Phone ALBA STODDARD, Unavailable Unavailable ALBA STODDARD ANTONIO, Unavailable Unavailable [facility] Unavailable Unavailable SERVICE, [facility] Unavailable Unavailable CENTERS, [facility] Unavailable INC, [facility] Unavailable Unavailable CENTER, [facility] Unavailable Unavailable CARE, [facility] Unavailable Unavailable INC, [facility] KIT RICHTER, Unavailable Unavailable KIT RICHTER [facility] Unavailable Unavailable [facility], [facility] Unavailable Unavailable HOLDING, [facility] Skyler Penaloza SUPPLIES, M Regis Penaloza Unavailable Unavailable SUPPLIES YONY BURRIS, Unavailable Unavailable YONY BURRIS STEPHEN A, Unavailable Unavailable ALBA MANLEY MARC D, Unavailable Unavailable [facility]LA[facility] Unavailable Unavailable ASSOCIATES,[facility], [facility] DAMASO ALMANZAR, Unavailable Unavailable DAMASO ALMANZAR BABATUNDE O, Unavailable Unavailable BARNEY ORTIZ [facility] Unavailable Unavailable [facility], [facility] Unavailable Unavailable DEPT RN ONCOLOGY, [facility] DEPT RN ONCOLOGY [facility] Unavailable Unavailable AGENCY, [facility] Mary MOBLEY WRIGHT, Unavailable Unavailable Mary C Purpose Continuity of Care Document - 08-20-2007 through 2016 Problems Code Diagnosis DOS Provider Status 35874 DIAB W/O 11-11-2009 Skyler Penaloza MENTION SUPPLIES COMP TYPE II/UNS TYPE UNCNTRL 61363 UNSPECIFIED 11-10-2009 [facility] E 4389 UNSPEC LATE 11-07-2009 [facility] EFF HEALTH CEREBRVASC AGENCY DZ DUE CEREBRVASC DZ 7197 DIFFICULTY 11-07-2009 [facility] IN [facility]ALK[facility] HEALTH AGENCY 38701 OTHER 11-07-2009 [facility] MALAISE AND HEALTH FATIGUE AGENCY 437 OTHER 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[facility] CEREBROVASC ULAR DISEASE 5950 ACUTE 10-24-2009 [facility] 06172 INCOMPLETE 10-24-2009 [facility] EMPTYING INC 4019 UNSPECIFIED 10-17-2009 [facility] HYPERTENSIO RN ONCOLOGY N 496 CHRONIC 10-17-2009 [facility] OBSTRUCTION RN ONCOLOGY NEC 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, OSIS OF FLAKITA D NAIL 7295 PAIN IN 10-07-2009 [facility], SOFT FLAKITA D TISSUES OF LIMB 73764 DIAB W/O 08-02-2009 [facility] COMP TYPE AMERIC II/UNS NOT HOLDING STATED UNCNTRL 01113 OTH FORM 08-02-2009 [facility] EPILEPSY & AMERIC RECUR HOLDING SEIZUR NO INTRACT EPIL 4011 ESSENTIAL 08-02-2009 [facility] HYPERTENSIO AMERIC N, BENIGN HOLDING 4659 ACUTE URIS 08-02-2009 Mary [facility] UNSPECIFIED SITE V5861 LONG-TERM 08-02-2009 Mary MOBLEY (CURRENT) PSC USE OF ANTICOAGULA NTS 5990 URINARY 08-01-2009 [facility] TRACT AMERIC INFECTION HOLDING SITE NOT SPECIFIED 81241 UNSPECIFIED 06-29-2009 [facility] N V0481 NEED 06-01-2009 [facility] VACCINATION &INOCULATIO N FLU 2724 OTHER AND 05-26-2009 [facility]NSPECIFIED [facility] HYPERLIPIDE ROXANNA 11177 BACKGROUND 04-12-2009 ALFIE RICHTER A RETINOPATHY 38571 HYPERTROPHY 03-31-2009 [facility] W/UR OBST & INC OTH LUTS 4329 UNSPECIFIED 03-10-2009 [facility] L HEMORRHAGE 7365 GENU 03-10-2009 [facility] 83312 OTHER 03-10-2009 [facility] DEFORMITY [facility] OF ANKLE AND FOOT OTHER 4779 ALLERGIC 01-20-2009 Mary MOBLEY RHINITIS PSC CAUSE UNSPECIFIED 3449 UNSPECIFIED 12-03-2008 [facility] 436 ACUTE BUT 12-03-2008 [facility] CEREBROVASC ULAR DISEASE 81146 OTHER 11-24-2008 Mary MOBLEY CONVULSIONS PSC E9479 UNSPEC 11-24-2008 [facility] RX/MEDICINA AMERIC L [place]ST[place] [address] MALIG HTN 10-08-2008 [facility] WITHOUT [facility] HEART FAIL 4589 UNSPECIFIED 10-08-2008 [facility] 4660 ACUTE 10-08-2008 [facility] 3320 PARALYSIS 10-01-2008 [facility] 5964 ATONY OF 10-01-2008 [facility] BLADDER [facility] AGENCY V5789 OTHER 10-01-2008 [facility] SPECIFIED HEALTH REHABILITAT AGENCY ION PROCEDURE OTHER 19794 UNSPECIFIED 07-13-[address] [facility] 7802 SYNCOPE AND 02-24-2008 Mary MOBLEY COLLAPSE [facility] 7804 DIZZINESS 02-23-2008 [facility] GIDDINESS SERVICE V653 DIETARY 01-21-2008 [facility] SURVEILLANC HEALTH E AND [facility] ACCT V7791 SCREENING 11-06-2007 [facility] FOR LIPOID HEALTH DISORDERS CENTRAL BANK ACCT 7806 FEVER & OTH 09-02-2007 [facility] DISTURBANCE S TEMP REG Immunization Name Date Route CVX Reacti Commen Provid Is Given on t er Refuse d IIV3 [facility] No VACCIN [facility] 0.5 ML DOSAGE IM USE IIV3 [facility] No [facility]ACCIN 2008 [facility] 0.5 ML DOSAGE IM USE IIV3 [facility] No VACCIN 2007 [facility] 0.5 ML DOSAGE IM USE Procedures Procedure DOS Code Location Performer Comment DAY CARE S5100 [facility] SERVICES 0 [facility] ADULT; ELDER ELDER PER 15 CARE CARE MINUTES DAY CARE S5100 [facility] SERVICES 0 [facility] ADULT; ELDER ELDER PER 15 CARE CARE MINUTES DAY CARE S5100 [facility] SERVICES 0 [facility] ADULT; ELDER ELDER PER 15 CARE CARE MINUTES BLD GLU A4253 M E D M E D TEST/REAG 0 SUPPLIES SUPPLIES T STRIPS HOME BLD GLU MON-50 LANCETS A4259 M E D M E D PER BOX 0 SUPPLIES SUPPLIES OF 100 INTERMIT A4351 [facility] URIN 0 [employer] [facility] CATH; E CENTERS E CENTERS STRAIGHT TIP W/WO COAT EA DAY CARE S5100 [facility] 0 [facility] ADULT; ELDER ELDER PER 15 CARE CARE MINUTES DAY CARE S5100 [facility] 0 [facility] ADULT; ELDER ELDER PER 15 CARE CARE MINUTES DAY CARE S5100 [facility] SERVICES 0 [facility] ADULT; ELDER ELDER PER 15 CARE CARE MINUTES INCONTINE T4541 [facility] PRODUCT [facility] HEALTH DISPOSABL AGENCY AGENCY E UNDPAD LARGE EA ADLT SZD T4528 [facility] DIS[facility]BL 0 HOME HOME INCONT HEALTH HEALTH PROD AGENCY AGENCY UNDWEAR XTRA LG EA DAY CARE S5100 [facility] SERVICES 0 [facility] ADULT; ELDER ELDER PER 15 CARE CARE MINUTES DAY CARE S5100 [facility] SERVICES 0 [facility] ADULT; ELDER ELDER PER 15 CARE CARE MINUTES DAY CARE S5100 [facility] SERVICES 0 [facility] ADULT; ELDER ELDER PER 15 CARE CARE MINUTES DAY CARE S5100 [facility] 0 [facility] ADULT; ELDER ELDER PER 15 CARE CARE MINUTES DAY CARE S5100 [facility] SERVICES 0 [facility] ADULT; ELDER ELDER PER 15 CARE CARE MINUTES CULTURE 47519 [facility] BCT 0 [facility] ISOL&PRSM INC INC PTV ID ISOLATE EA URINE CULTURE 08972 [facility] BACTERIAL 0 [facility] INC INC QUANTTATI VE COLONY COUNT URINE SUSCEPTIB 86701 [facility] LTY STDY 0 [facility] ANTIMICRB INC INC IAL MICRO/AGA R DILUTJ DAY CARE S5100 [facility] SERVICES 0 [facility] ADULT; ELDER ELDER PER 15 CARE CARE MINUTES DAY CARE S5100 [facility] 0 [facility] ADULT; ELDER ELDER PER 15 CARE CARE MINUTES DAY CARE S5100 [facility] 0 [facility] ADULT; ELDER ELDER PER 15 CARE CARE MINUTES DAY CARE S5100 [facility] SERVICES 0 [facility] ADULT; ELDER ELDER PER 15 CARE CARE MINUTES DAY CARE S5100 [facility] SERVICES 0 [facility] ADULT; ELDER ELDER PER 15 CARE CARE MINUTES DAY CARE S5100 [facility] SERVICES 0 [facility] ADULT; ELDER ELDER PER 15 CARE CARE MINUTES DAY CARE S5100 [facility] SERVICES 0 [facility] ADULT; ELDER ELDER PER 15 CARE CARE MINUTES DAY CARE S5100 [facility] SERVICES 0 [facility] ADULT; ELDER ELDER PER 15 CARE CARE MINUTES INTERMIT A4351 [facility] URIN 0 [facility] CATH; E CENTERS E CENTERS STRAIGHT TIP W/WO COAT EA DAY CARE S5100 [facility] SERVICES 0 [facility] ADULT; ELDER ELDER PER 15 CARE CARE MINUTES DAY CARE S5100 [facility] SERVICES 0 [facility] ADULT; ELDER ELDER PER 15 CARE CARE MINUTES DAY CARE S5100 [facility] SERVICES 0 [facility] ADULT; ELDER ELDER PER 15 CARE CARE MINUTES DAY CARE S5100 [facility] SERVICES 0 [facility] ADULT; ELDER ELDER PER 15 CARE CARE MINUTES DAY CARE S5100 [facility] SERVICES 0 [facility] ADULT; ELDER ELDER PER 15 CARE CARE MINUTES DAY CARE S5100 [facility] SERVICES 0 [facility] ADULT; ELDER ELDER PER 15 CARE CARE MINUTES ADLT SZD T4528 [facility] 0 [facility] PROD AGENCY AGENCY UNDWEAR XTRA LG EA DAY CARE S5100 [facility] SERVICES 9 [facility] ADULT; ELDER ELDER PER 15 CARE CARE MINUTES DAY CARE S5100 [facility] SERVICES 9 [facility] ADULT; ELDER ELDER PER 15 CARE CARE MINUTES DAY CARE S5100 [facility] SERVICES 9 [facility] ADULT; ELDER ELDER PER 15 CARE CARE MINUTES DAY CARE S5100 [facility] SERVICES 9 [facility] ADULT; ELDER ELDER PER 15 CARE CARE MINUTES DAY CARE S5100 [facility] SERVICES 9 [facility] ADULT; ELDER ELDER PER 15 CARE CARE MINUTES DAY CARE S5100 [facility] SERVICES 9 [facility] ADULT; ELDER ELDER PER 15 CARE CARE MINUTES COLLECTIO 60947 Mary MANLEY, N VENOUS 9 LEANDRA Hernandez BLOOD PSC VENIPUNCT URE IM ADM 46909 Mary MANLEY, PRQ ID 9 LEANDRA Hernandez SUBQ/IM PSC NJXS 1 VACCINE PROTHROMB 20749 Mary MANLEY, IN TIME 9 LEANDRA Hernandez PSC BASIC 39127 [facility] METABOLIC 9 AMERIC AMERIC PANEL HOLDING HOLDING CALCIUM TOTAL INJ J0702 Mary MANLEY BETAMETHA 9 LEANDRA Hernandez SONE PSC ACETATE & PHOSPHATE 3 MG DRUG 36825 [facility] ASSAY 9 AMERIC AMERIC VALPROIC HOLDING HOLDING DIPROPYLA CETIC ACID TOTAL GLUCOSE 86675 Mary MANLEY, QUANTITAT 9 LEANDRA Hernandez TAYLER BLOOD PSC XCPT REAGENT STRIP HEMOGLOBI 83609 Mary MANLEY, N 9 LEANDRA Hernandez GLYCOSYLA PSC SUSAN A1C CULTURE 28868 [facility] BCT 9 AMERIC AMERIC ISOL&PRSM HOLDING HOLDING PTV ID ISOLATE EA URINE URINLS 99942 A Ayde ALMANZAR, DIP 9 LEANDRA WHITESIDE DAMASO STICK/TAB PSC LET REAGNT NON-AUTO MICRSCPY CULTURE 96109 [facility] BACTERIAL 9 AMERIC AMERIC HOLDING HOLDING QUANTTATI VE COLONY COUNT URINE CUL BACT 27080 [facility] AEROBIC 9 AMERIC AMERIC ADDL HOLDING HOLDING METHS DEFINITIV E EA ISOL SUSCEPTIB 27661 [facility] LTY STDY 9 AMERIC AMERIC ANTIMICRB HOLDING HOLDING IAL MICRO/AGA R DILUTJ DAY CARE S[address] ADULT; ELDER ELDER PER 15 CARE CARE MINUTES DAY CARE S[address] ADULT; ELDER ELDER PER 15 CARE CARE MINUTES DAY CARE S[address] ADULT; ELDER ELDER PER 15 CARE CARE MINUTES DAY CARE S[address] ADULT; ELDER ELDER PER 15 CARE CARE MINUTES DAY CARE S[address] ADULT; ELDER ELDER PER 15 CARE CARE MINUTES ADLT SZD T4528 [facility] 9 HOME HOME INCONT HEALTH HEALTH PROD AGENCY AGENCY UNDWEAR XTRA LG EA DEBRIDEME 43312 PAWT, MEL, SHIKHA NAIL 9 FLAKITA Penaloza ANY METHOD 6/> DAY CARE S5100 [facility] SERVICES [address] [place] [address] ADULT; ELDER ELDER PER 15 CARE CARE MINUTES DAY CARE S5100 [facility] SERVICES [address] [place] [address] ADULT; ELDER ELDER PER 15 CARE CARE MINUTES INTERMIT A4351 [facility] SENA 9 [facility] CATH; E CENTERS E CENTERS STRAIGHT TIP W/WO COAT EA DAY CARE S5100 [facility] SERVICES [address] [place] [address] ADULT; ELDER ELDER PER 15 CARE CARE MINUTES DAY CARE S5100 [facility] SERVICES [address] [place] [address] ADULT; ELDER ELDER PER 15 CARE CARE MINUTES DAY CARE S5100 [facility] SERVICES [address] [place] [address] ADULT; ELDER ELDER PER 15 CARE CARE MINUTES DAY CARE S5100 [facility] SERVICES [address] [place] [address] ADULT; ELDER ELDER PER 15 CARE CARE MINUTES DAY CARE S5100 [facility] SERVICES [address] [place] [address] ADULT; ELDER ELDER PER 15 CARE CARE MINUTES DAY CARE S5100 [facility] SERVICES [address] [place] [address] ADULT; ELDER ELDER PER 15 CARE CARE MINUTES DAY CARE S5100 [facility] SERVICES [address] [place] [address] ADULT; ELDER ELDER PER 15 CARE CARE MINUTES DAY CARE S5100 [facility] SERVICES [address] [place] [address] ADULT; ELDER ELDER PER 15 CARE CARE MINUTES DAY CARE S5100 [facility] SERVICES [address] [place] [address] ADULT; ELDER ELDER PER 15 CARE CARE MINUTES DAY CARE S5100 [facility] [address] [place] [address] ADULT; ELDER ELDER PER 15 CARE CARE MINUTES DAY CARE S5100 [facility] [address] [place] [address] ADULT; ELDER ELDER PER 15 CARE CARE MINUTES DAY CARE S5100 [facility] [address] [place] [address] ADULT; ELDER ELDER PER 15 CARE CARE MINUTES DAY CARE S5100 [facility] [address] [place] [address] ADULT; ELDER ELDER PER 15 CARE CARE MINUTES DAY CARE S5100 [facility] [address] [place] [address] ADULT; ELDER ELDER PER 15 CARE CARE MINUTES INCONTINE T4541 [facility] N[facility] 9 HOME HOME PRODUCT HEALTH HEALTH DISPOSABL AGENCY AGENCY E UNDPAD LARGE EA DAY CARE S5100 [facility] [address] [place] [address] ADULT; ELDER ELDER PER 15 CARE CARE MINUTES DAY CARE S5100 [facility] SERVICES [address] [place] [address] ADULT; ELDER ELDER PER 15 CARE CARE MINUTES IIV3 71578 [facility] VACCINE 9 [place] [employer] [facility] CENTER VIRUS 0.5 ML DOSAGE IM USE ADMINISTR G0008 [facility] ATION OF 9 [place] [employer] [facility] CENTER VIRUS VACCINE ADLT SZD T4528 [facility] 9 HOME HOME INCONT HEALTH HEALTH PROD AGENCY AGENCY UNDWEAR XTRA LG EA DAY CARE S5100 [facility] SERVICES [address] [place] [address] ADULT; ELDER ELDER PER 15 CARE CARE MINUTES DAY CARE S5100 [facility] [address] ADULT; ELDER ELDER PER 15 CARE CARE MINUTES COLLECTIO 63352 [facility] N VENOUS 9 [facility] BLOOD INC INC VENIPUNCT URE BASIC 33398 [facility] METABOLIC 9 [facility] [place] [address] [facility] THYROID 9 [facility] STIMULATI INC INC NG HORMONE TSH INTERMIT A4351 OUMARWILLY SENA 9 [facility] CATH; E CENTERS E CENTERS STRAIGHT TIP W/WO COAT EA DAY CARE S5100 [facility] SERVICES [address] [place] [address] ADULT; ELDER ELDER PER 15 CARE CARE MINUTES DAY CARE S5100 [facility] SERVICES [address] [place] [address] ADULT; ELDER ELDER PER 15 CARE CARE MINUTES DAY CARE S5100 [facility] SERVICES [address] [place] [address] ADULT; ELDER ELDER PER 15 CARE CARE MINUTES DAY CARE S5100 [facility] SERVICES [address] [place] [address] ADULT; ELDER ELDER PER 15 CARE CARE MINUTES DAY CARE S5100 [facility] SERVICES [address] [place] [address] ADULT; ELDER ELDER PER 15 CARE CARE MINUTES DAY CARE S[address] ADULT; ELDER ELDER PER 15 CARE CARE MINUTES DAY CARE S[address] ADULT; ELDER ELDER PER 15 CARE CARE MINUTES DAY CARE S[address] ADULT; ELDER ELDER PER 15 CARE [...] ADMINISTR G0008 [facility] ATION OF 9 [facility] CENTER CENTER VIRUS VACCINE NORMAL A4256 M E D M E D LOW AND 9 SUPPLIES SUPPLIES HIGH CALIBRATO R SOLUTION/ CHIPS BLD GLU A4253 M E D M E D TEST/REAG 9 SUPPLIES SUPPLIES T STRIPS HOME BLD GLU MON-50 IIV3 07870 [facility] VACCINE 9 [facility] VIRUS 0.5 ML DOSAGE IM USE DAY CARE S[address] ADULT; ELDER ELDER PER 15 CARE CARE MINUTES DAY CARE S[address] ADULT; ELDER ELDER PER 15 CARE CARE MINUTES DAY CARE S[address] ADULT; ELDER ELDER PER 15 CARE CARE MINUTES DAY CARE S[address] ADULT; ELDER ELDER PER 15 CARE CARE MINUTES DAY CARE S[address] ADULT; ELDER ELDER PER 15 CARE CARE MINUTES DAY CARE S[address] ADULT; ELDER ELDER PER 15 CARE CARE MINUTES DAY CARE S[address] ADULT; ELDER ELDER PER 15 CARE CARE MINUTES DAY CARE S[address] ADULT; ELDER ELDER PER 15 CARE CARE MINUTES DAY CARE S[address] ADULT; ELDER ELDER PER 15 CARE CARE MINUTES DAY CARE S[address] ADULT; ELDER ELDER PER 15 CARE CARE MINUTES INTERMIT A4351 OUMARWILLY SENA 9 [facility] CATH; E CENTERS E CENTERS STRAIGHT TIP W/WO COAT EA DAY CARE S5100 [facility] [address] ADULT; ELDER ELDER PER 15 CARE CARE MINUTES DAY CARE S5100 [facility] [address] ADULT; ELDER ELDER PER 15 CARE CARE MINUTES DAY CARE S5100 [facility] [address] ADULT; ELDER ELDER PER 15 CARE CARE MINUTES DAY CARE S5100 [facility] [address] ADULT; ELDER ELDER PER 15 CARE CARE MINUTES DAY CARE S5100 [facility] [address] ADULT; ELDER ELDER PER 15 CARE CARE MINUTES ADLT SZD T4528 [facility] 9 HOME HOME [facility] PROD AGENCY AGENCY UNDWEAR XTRA LG EA DAY CARE S5100 [facility] [address] ADULT; ELDER ELDER PER 15 CARE CARE MINUTES DAY CARE S5100 [address] ADULT; ELDER ELDER PER 15 CARE CARE MINUTES DAY CARE S[address] ADULT; ELDER ELDER PER 15 CARE CARE MINUTES [facility] [address] ROBER, ROBER, MEDICAL 9 KIT A KIT A XM&JOELLE COMPRHNSV ESTAB PT 1/> DAY CARE S5100 [facility] [address] ADULT; ELDER ELDER PER 15 CARE CARE MINUTES DAY CARE S5100 [facility] [address] ADULT; ELDER ELDER PER 15 CARE CARE MINUTES DAY CARE S[address] ADULT; ELDER ELDER PER 15 CARE CARE MINUTES DAY CARE S[address] [address] ADULT; ELDER ELDER PER 15 CARE CARE MINUTES DAY CARE S[address] [address] ADULT; ELDER ELDER PER 15 CARE CARE MINUTES COLLECTIO 80259 [facility] N VENOUS 9 [facility] [place] [address] [facility] RETROPERI 9 [facility] TONEAL INC INC REAL TIME W/IMAGE COMPLETE BASIC 31809 [facility] METABOLIC 9 [facility] PANEL INC INC CALCIUM TOTAL DAY CARE S[address] [address] ADULT; ELDER ELDER PER 15 CARE CARE MINUTES DAY CARE S[address] ADULT; ELDER ELDER PER 15 CARE CARE MINUTES DAY CARE S[address] ADULT; ELDER ELDER PER 15 CARE CARE MINUTES DAY CARE S[address] ADULT; ELDER ELDER PER 15 CARE CARE MINUTES DAY CARE S[address] ADULT; ELDER ELDER PER 15 CARE CARE MINUTES DAY CARE S[address] ADULT; ELDER ELDER PER 15 CARE CARE MINUTES DAY CARE S[address] ADULT; ELDER ELDER PER 15 CARE CARE MINUTES DAY CARE S[address] ADULT; ELDER ELDER PER 15 CARE CARE MINUTES DAY CARE S[address] ADULT; ELDER ELDER PER 15 CARE CARE MINUTES DAY CARE S[address] ADULT; ELDER ELDER PER 15 CARE CARE MINUTES DAY CARE S[address] ADULT; ELDER ELDER PER 15 CARE CARE MINUTES ADD LW [id number] [facility] EXT 9 BRACE BRACE VARUS/TARI PROSTH PROSTH ROBERTA WILMER INC INC STRAP PAD/LINE PAD DIAB ONLY A5500 [facility] FIT CSTM 9 BRACE BRACE PREP&SPL PROSTH PROSTH SHOE MX INC INC DNSITY INSRT TRANS L3620 [facility] 1 9 BRACE BRACE SHOE-ANOT PROSTH PROSTH HER SLD INC INC STIRRUP EXISTING REPAIR L4205 [facility] ORTHOTIC 9 BRACE BRACE DEVC PROSTH PROSTH LABOR INC INC COMPONENT PER 15 MIN DAY CARE S[address] ADULT; ELDER ELDER PER 15 CARE CARE MINUTES DAY CARE S5[address] ADULT; ELDER ELDER PER 15 CARE CARE MINUTES DAY CARE S5100 [address] ADULT; ELDER ELDER PER 15 CARE CARE MINUTES DAY CARE S5[address] ADULT; ELDER ELDER PER 15 CARE CARE MINUTES DAY CARE S5[address] ADULT; ELDER ELDER PER 15 CARE CARE MINUTES ADLT SZD [id number] [facility] HOME HOME INCONT HEALTH HEALTH PROD AGENCY AGENCY UNDWEAR XTRA LG EA DAY CARE S[address] ADULT; ELDER ELDER PER 15 CARE CARE MINUTES INTERMIT A4351 [facility] O[facility]AR URIN 9 [facility] CATH; E CENTERS E CENTERS STRAIGHT TIP W/WO COAT EA URINLS 60759 A C SINDHU, DIP 9 LEANDRA Hernandez STICK/TAB PSC LET REAGNT NON-AUTO MICRSCPY CULTURE 78604 [facility] BACTERIAL 9 [employer] QUANTTATI VE COLONY COUNT URINE DAY CARE [id number] ADULT; ELDER ELDER PER 15 CARE CARE MINUTES DAY CARE S5[address] ADULT; ELDER ELDER PER 15 CARE CARE MINUTES DAY CARE S5[address] ADULT; ELDER ELDER PER 15 CARE CARE MINUTES DAY CARE S5[address] ADULT; ELDER ELDER PER 15 CARE CARE MINUTES CULTURE 01483 [facility] BACTERIAL 9 [employer] QUANTTATI VE COLONY COUNT URINE CUL BACT 41160 [facility] AEROBIC 9 [employer] ADDL [employer] HOLDING METHS DEFINITIV E EA ISOL URINLS 69086 A C JENELLE, DIP 9 LEANDRA PETIT STICK/TAB PSC LET REAGNT NON-AUTO MICRSCPY CULTURE 51585 [facility] BCT 9 [employer] ISOL&[employer] HOLDING PTV ID ISOLATE EA URINE SUSCEPTIB 30572 [facility] LTY STDY 9 [employer] ANTIMICRB [employer] HOLDING IAL MICRO/AGA R DILUTJ DAY CARE S[address] ADULT; ELDER ELDER PER 15 CARE CARE MINUTES DAY CARE S[address] ADULT; ELDER ELDER PER 15 CARE CARE MINUTES DAY CARE S[address] ADULT; ELDER ELDER PER 15 CARE CARE MINUTES DAY CARE S5[address] ADULT; ELDER ELDER PER 15 CARE CARE MINUTES DAY CARE S[address] ADULT; ELDER ELDER PER 15 CARE CARE MINUTES DAY CARE S[address] ADULT; ELDER ELDER PER 15 CARE CARE MINUTES DAY CARE S[address] ADULT; ELDER ELDER PER 15 CARE CARE MINUTES DAY CARE S5[address] ADULT; ELDER ELDER PER 15 CARE CARE MINUTES DAY CARE S[address] ADULT; ELDER ELDER PER 15 CARE CARE MINUTES INTERMIT A4351 OUMAR SENA 9 [facility] CATH; E CENTERS E CENTERS STRAIGHT TIP W/WO COAT EA DAY CARE S[address] ADULT; ELDER ELDER PER 15 CARE CARE MINUTES DAY CARE S5100 RAMANDEEP [address]DE[address] ADULT; ELDER ELDER PER 15 CARE CARE MINUTES DAY CARE S5100 [address] ADULT; ELDER ELDER PER 15 CARE CARE MINUTES DAY CARE S5100 [address] ADULT; ELDER ELDER PER 15 CARE CARE MINUTES DAY CARE S[address] ADULT; ELDER ELDER PER 15 CARE CARE MINUTES DAY CARE S[address] ADULT; ELDER ELDER PER 15 CARE CARE MINUTES ADLT SZD T4528 [facility] PROD AGENCY AGENCY UNDWEAR XTRA LG EA DAY CARE S5[address] ADULT; ELDER ELDER PER 15 CARE CARE MINUTES DAY CARE S[address] ADULT; ELDER ELDER PER 15 CARE CARE MINUTES DAY CARE S5[address] ADULT; ELDER ELDER PER 15 CARE CARE MINUTES DAY CARE S5100 [facility] [address] [place] [address] ADULT; ELDER ELDER PER 15 CARE CARE MINUTES DAY CARE S5100 [facility] [address] [place] [address] ADULT; ELDER ELDER PER 15 CARE CARE MINUTES DAY CARE S5100 [facility] [address] [place] [address] ADULT; ELDER ELDER PER 15 CARE CARE MINUTES DAY CARE S5100 [facility] [address] [place] [address] ADULT; ELDER ELDER PER 15 CARE CARE MINUTES DAY CARE S5100 [facility] [address] [place] [address] ADULT; ELDER ELDER PER 15 CARE CARE MINUTES DAY CARE S5100 [facility] [address] [place] [address] ADULT; ELDER ELDER PER 15 CARE CARE MINUTES DAY CARE S5100 [facility] [address] [place] [address] ADULT; ELDER ELDER PER 15 CARE CARE MINUTES DAY CARE S5100 RAMANDEEP RAMANDEEP [address] ADULT; ELDER ELDER PER 15 CARE CARE MINUTES DAY CARE S[address] ADULT; ELDER ELDER PER 15 CARE CARE MINUTES DAY CARE S5100 [facility] [address] [place] [address] ADULT; ELDER ELDER PER 15 CARE CARE MINUTES DAY CARE S[address] ADULT; ELDER ELDER PER 15 CARE CARE MINUTES DAY CARE S[address] ADULT; ELDER ELDER PER 15 CARE CARE MINUTES DAY CARE S5100 RAMANDEEP RAMANDEEP [address] ADULT; ELDER ELDER PER 15 CARE CARE MINUTES DAY CARE S5100 [facility] [address] [place] [address] ADULT; ELDER ELDER PER 15 CARE CARE MINUTES DAY CARE S5100 [facility] [address] [place] [address] ADULT; ELDER ELDER PER 15 CARE CARE MINUTES DAY CARE S5100 [facility] [address] [place] [address] ADULT; ELDER ELDER PER 15 CARE CARE MINUTES TRAPEZE E0940 YOSELYN SCHROEDER 9 HOME MED HOME MED FREESTAND EQUIP. EQUIP. ING [facility] COMPLETE WITH ART SCHROEDER HOS BED E0260 YOSELYN TOPETE SEMI-ELEC 9 HOME MED HOME MED W/ANY EQUIP. EQUIP. TYPE SIDE [facility] RAIL W/MATTRSS DAY CARE S5[address] ADULT; ELDER ELDER PER 15 CARE CARE MINUTES DAY CARE S5[address] ADULT; ELDER ELDER PER 15 CARE CARE MINUTES DAY CARE S5[address] ADULT; ELDER ELDER PER 15 CARE CARE MINUTES DAY CARE S5[address] ADULT; ELDER ELDER PER 15 CARE CARE MINUTES DAY CARE S5[address] ADULT; ELDER ELDER PER 15 CARE CARE MINUTES DAY CARE S5[address] ADULT; ELDER ELDER PER 15 CARE CARE MINUTES COLLECTIO 08502 Mary HANDY VENOUS 9 LEANDRA Messer BLOOD PSC VENIPUNCT URE PROTHROMB 60885 Mary HANDY IN TIME 9 LEANDRA Messer PSC DRUG [id number] LAB ANIK[facility] LAB ANIKA ASSAY 9 [employer]IC AMERIC VALPROIC HOLDING HOLDING DIPROPYLA CETIC ACID TOTAL BASIC 19859 LAB ANIK[facility] LAB ANIKA METABOLIC 9 AMERIC AMERIC PANEL HOLDING HOLDING CALCIUM TOTAL ADLT SZD T4528 [facility] HOME INCONT HEALTH HEALTH PROD AGENCY AGENCY UNDWEAR XTRA LG EA DAY CARE S5[address] ADULT; ELDER ELDER PER 15 CARE CARE MINUTES DAY CARE S5[address] ADULT; ELDER ELDER PER 15 CARE CARE MINUTES DAY CARE S5[address] ADULT; ELDER ELDER PER 15 CARE CARE MINUTES DAY CARE S5[address] ADULT; ELDER ELDER PER 15 CARE CARE MINUTES URINLS 90840 Mary HANDY DIP 9 LEANDRA Messer STICK/TAB PSC LET REAGNT NON-AUTO MICRSCPY INCONTINE T4541 [facility] 9 HOME HOME PRODUCT [facility] HEALTH DISPOSABL AGENCY AGENCY E UNDPAD LARGE EA DAY CARE S5[address] ADULT; ELDER ELDER PER 15 CARE CARE MINUTES DAY CARE S5[address] ADULT; ELDER ELDER PER 15 CARE CARE MINUTES DAY CARE S5100 [facility] [address] [place] [address] ADULT; ELDER ELDER PER 15 CARE CARE MINUTES DAY CARE S5100 [facility] [address] [place] [address] ADULT; ELDER ELDER PER 15 CARE CARE MINUTES TRAPEZE E0940 YOSELYN YOSELYN BAR 9 HOME MED HOME MED FREESTAND EQUIP. EQUIP. ING [facility] COMPLETE WITH GRAB BAR HOS BED E0260 YOSELYN YOSELYN SEMI-ELEC 9 HOME MED HOME MED W/ANY EQUIP. EQUIP. TYPE SIDE [facility] RAIL W/MATTRSS DAY CARE S5100 [facility] [address] [place] [address] ADULT; ELDER ELDER PER 15 CARE CARE MINUTES DAY CARE S5100 [facility] [address] [place] [address] ADULT; ELDER ELDER PER 15 CARE CARE MINUTES DAY CARE S5[address] ADULT; ELDER ELDER PER 15 CARE CARE MINUTES DAY CARE S5[address] ADULT; ELDER ELDER PER 15 CARE CARE MINUTES DAY CARE S5[address] ADULT; ELDER ELDER PER 15 CARE CARE MINUTES DAY CARE S5[address] ADULT; ELDER ELDER PER 15 CARE CARE MINUTES DAY CARE S5[address] ADULT; ELDER ELDER PER 15 CARE CARE MINUTES DAY CARE S5[address] ADULT; ELDER ELDER PER 15 CARE CARE MINUTES DAY CARE S5[address] ADULT; ELDER ELDER PER 15 CARE CARE MINUTES DAY CARE S5100 [facility] [address] [place] [address] ADULT; ELDER ELDER PER 15 CARE CARE MINUTES DAY CARE S5100 [facility] [address] [place] [address] ADULT; ELDER ELDER PER 15 CARE CARE MINUTES SUSCEPTIB 36820 LAB [facility] LAB ANIKA LTY STDY 9 AMERIC AMERIC ANTIMICRB HOLDING HOLDING IAL MICRO/AGA R DILUTJ CUL BACT 86552 LAB [facility] LAB ANIKA AEROBIC 9 AMERIC AMERIC ADDL HOLDING HOLDING METHS DEFINITIV E EA ISOL CULTURE 23887 LAB ANIKA LAB ANIKA BACTERIAL 9 [employer]IC [employer] HOLDING HOLDING QUANTTATI VE COLONY COUNT URINE CULTURE 76834 LAB ANIK[facility] LAB ANIKA BCT 9 AMERIC AMERIC ISOL&PRSM HOLDING HOLDING PTV ID ISOLATE EA URINE URINLS 97896 Mary HANDY 9 LEANDRA WHITESIDE C STICK/TAB PSC LET REAGNT NON-AUTO MICRSCPY DAY CARE S[address] ADULT; ELDER ELDER PER 15 CARE CARE MINUTES DAY CARE S5[address] ADULT; ELDER ELDER PER 15 CARE CARE MINUTES DAY CARE S5[address] ADULT; ELDER ELDER PER 15 CARE CARE MINUTES DAY CARE S5[address] ADULT; ELDER ELDER PER 15 CARE CARE MINUTES CERVICAL L0172 PROSTHETI PROSTHETI COLLAR 9 C&ORTHOTI C&ORTHOTI SEMI-RIGI C C D FOAM ASSOCIATE ASSOCIATE TWO [email or web address] [facility] DAY CARE S[address] ADULT; ELDER ELDER PER 15 CARE CARE MINUTES DAY CARE S5[address] ADULT; ELDER ELDER PER 15 CARE CARE MINUTES TRAPEZE E0940 YOSELYN TOPETE BAR 9 HOME MED HOME MED FREESTAND EQUIP. EQUIP. ING [facility] COMPLETE WITH GRAB BAR HOS BED E0260 YOSELYN TOPETE SEMI-ELEC 9 HOME MED HOME MED W/ANY EQUIP. EQUIP. TYPE SIDE [facility] RAIL W/MATTRSS ADLT SZD T4528 [facility] 9 HOME HOME INCONT HEALTH HEALTH PROD AGENCY AGENCY UNDWEAR XTRA LG EA DAY CARE S5[address] ADULT; ELDER ELDER PER 15 CARE CARE MINUTES DAY CARE S5[address] ADULT; ELDER ELDER PER 15 CARE CARE MINUTES DAY CARE S5[address] ADULT; ELDER ELDER PER 15 CARE CARE MINUTES DAY CARE S5[address] ADULT; ELDER ELDER PER 15 CARE CARE MINUTES DAY CARE S5[address] ADULT; ELDER ELDER PER 15 CARE CARE MINUTES URINLS 17621 A Mary SMITH DIP 9 LEANDRA WHITESIDE C STICK/TAB PSC LET REAGNT NON-AUTO MICRSCPY INTERMIT A4351 OUMARWILLY OSEGUERA NATHEN 9 [facility] HEALTH[facility] CATH; E CENTERS E CENTERS STRAIGHT TIP W/WO COAT EA DAY CARE S5[address] ADULT; ELDER ELDER PER 15 CARE CARE MINUTES DAY CARE S5[address] ADULT; ELDER ELDER PER 15 CARE CARE MINUTES DAY CARE S5[address] ADULT; ELDER ELDER PER 15 CARE CARE MINUTES DAY CARE S5[address] ADULT; ELDER ELDER PER 15 CARE CARE MINUTES DAY CARE S5[address] ADULT; ELDER ELDER PER 15 CARE CARE MINUTES DAY CARE S5[address] ADULT; ELDER ELDER PER 15 CARE CARE MINUTES DAY CARE S5[address] ADULT; ELDER ELDER PER 15 CARE CARE MINUTES SUSCEPTIB 00943 LAB ANIKA LAB ANIKA LTY STDY 9 AMERIC AMERIC ANTIMICRB HOLDING HOLDING IAL MICRO/AGA R DILUTJ URINLS 16151 Mary HANDY DIP 9 LEANDRA Messer STICK/TAB PSC LET REAGNT NON-AUTO MICRSCPY CULTURE 06769 LAB ANIKA LAB ANIKA BACTERIAL 9 AMERIC [employer] HOLDING HOLDING QUANTTATI VE COLONY COUNT URINE CULTURE 66491 LAB ANIKA LAB ANIKA BCT 9 AMERIC AMERIC ISOL&PRSM HOLDING HOLDING PTV ID ISOLATE EA URINE CUL BACT 94269 LAB ANIKA LAB ANIKA AEROBIC 9 AMERIC [employer] ADDL HOLDING HOLDING METHS DEFINITIV E EA ISOL TRAPEZE E0940 YOSELYN SCHROEDER 9 HOME MED HOME MED FREESTAND EQUIP. EQUIP. ING [facility] COMPLETE WITH GRAB BAR HOS BED E0260 YOSELYN TOPETE SEMI-ELEC 9 HOME MED HOME MED W/ANY EQUIP. EQUIP. TYPE SIDE [facility] RAIL W/MATTRSS DAY CARE S[address] ADULT; ELDER ELDER PER 15 CARE CARE MINUTES DAY CARE S5[address] ADULT; ELDER ELDER PER 15 CARE CARE MINUTES DAY CARE S5[address] ADULT; ELDER ELDER PER 15 CARE CARE MINUTES DAY CARE S5[address] ADULT; ELDER ELDER PER 15 CARE CARE MINUTES DAY CARE S5[address] ADULT; ELDER ELDER PER 15 CARE CARE MINUTES DAY CARE S5[address] ADULT; ELDER ELDER PER 15 CARE CARE MINUTES DAY CARE S5[address] ADULT; ELDER ELDER PER 15 CARE CARE MINUTES INTERMIT A4351 O[facility]AR SENA 9 [facility] HEALTH[facility] CATH; E CENTERS E CENTERS STRAIGHT TIP W/WO COAT EA DAY CARE S5[address] ADULT; ELDER ELDER PER 15 CARE CARE MINUTES DAY CARE S5[address] ADULT; ELDER ELDER PER 15 CARE CARE MINUTES ADLT SZD T4528 [facility] 9 HOME HOME [facility]ALTH HEALTH PROD AGENCY AGENCY UNDWEAR XTRA LG EA DAY CARE S[address] ADULT; ELDER ELDER PER 15 CARE [...] SUPPLIES SUPPLIES OF 100 DAY CARE S[address] ADULT; ELDER ELDER PER 15 CARE CARE MINUTES DAY CARE S[address] ADULT; ELDER ELDER PER 15 CARE CARE MINUTES DAY CARE S[address] ADULT; ELDER ELDER PER 15 CARE CARE MINUTES DAY CARE S[address] ADULT; ELDER ELDER PER 15 CARE CARE MINUTES SUSCEPTIB 28909 LAB ANIKA LAB ANIKA LTY STDY 8 AMERIC AMERIC ANTIMICRB HOLDING HOLDING IAL MICRO/AGA R DILUTJ CUL BACT 27538 LAB ANIKA LAB ANIKA AEROBIC 8 AMERIC AMERIC ADDL HOLDING HOLDING METHS DEFINITIV E EA ISOL CULTURE 53407 LAB ANIKA LAB ANIKA BCT 8 AMERIC AMERIC ISOL&PRSM HOLDING HOLDING PTV ID ISOLATE EA URINE CULTURE 31826 LAB ANIKA LAB ANIKA BACTERIAL 8 AMERIC [employer] HOLDING HOLDING QUANTTATI VE COLONY COUNT URINE DAY CARE S[address] ADULT; ELDER ELDER PER 15 CARE CARE MINUTES TRAPEZE E0940 YOSELYN YOSELYN BAR 8 HOME MED HOME MED FREESTAND EQUIP. EQUIP. ING [facility] COMPLETE WITH GRAB BAR HOS BED E0260 YOSELYN YOSELYN SEMI-ELEC 8 HOME MED HOME MED W/ANY EQUIP. EQUIP. TYPE SIDE [facility] RAIL W/MATTRSS DAY CARE S[address] ADULT; ELDER ELDER PER 15 CARE CARE MINUTES DAY CARE S[address] ADULT; ELDER ELDER PER 15 CARE CARE MINUTES DAY CARE S[address] ADULT; ELDER ELDER PER 15 CARE CARE MINUTES DAY CARE S[address] ADULT; ELDER ELDER PER 15 CARE CARE MINUTES DAY CARE S[address] ADULT; ELDER ELDER PER 15 CARE CARE MINUTES DAY CARE S[address] ADULT; ELDER ELDER PER 15 CARE CARE MINUTES DAY CARE S[address] ADULT; ELDER ELDER PER 15 CARE CARE MINUTES DAY CARE S[address] ADULT; ELDER ELDER PER 15 CARE CARE MINUTES DAY CARE S[address] ADULT; ELDER ELDER PER 15 CARE CARE MINUTES INTERMIT A4351 [facility]AR SENA 8 [facility] HEALTHCAR CATH; E CENTERS E CENTERS STRAIGHT TIP W/WO COAT EA DAY CARE S[address] ADULT; ELDER ELDER PER 15 CARE CARE MINUTES DAY CARE S5100 [facility] [address] [place] [address] ADULT; ELDER ELDER PER 15 CARE CARE MINUTES DAY CARE S5100 [facility] [address] [place] [address] ADULT; ELDER ELDER PER 15 CARE CARE MINUTES DAY CARE S5100 [facility] [address] [place] [address] ADULT; ELDER ELDER PER 15 CARE CARE MINUTES TRAPEZE E0940 YOSELYN SCHROEDER 8 HOME MED HOME MED FREESTAND EQUIP. EQUIP. [facility] COMPLETE WITH GRAB [facility] DAY CARE S[address] ADULT; ELDER ELDER PER 15 CARE CARE MINUTES HOS BED E0260 YOSELYN TOPETE SEMI-ELEC 8 HOME MED HOME MED W/ANY EQUIP. EQUIP. TYPE SIDE [facility] RAIL W/MATTRSS DAY CARE S[address] ADULT; ELDER ELDER PER 15 CARE CARE MINUTES DAY CARE S[address] ADULT; ELDER ELDER PER 15 CARE CARE MINUTES DAY CARE S[address] ADULT; ELDER ELDER PER 15 CARE CARE MINUTES DAY CARE S[address] ADULT; ELDER ELDER PER 15 CARE CARE MINUTES DAY CARE S[address] ADULT; ELDER ELDER PER 15 CARE CARE MINUTES ADLT SZD T4528 [facility] 8 HOME HOME [facility] PROD AGENCY AGENCY UNDWEAR XTRA LG EA DAY CARE S5100 [facility] [address] [place] [address] ADULT; ELDER ELDER PER 15 CARE CARE MINUTES DAY CARE S5100 [facility] [address] [place] [address] ADULT; ELDER ELDER PER 15 CARE CARE MINUTES DAY CARE S5100 [facility] [address] [place] [address] ADULT; ELDER ELDER PER 15 CARE CARE MINUTES DAY CARE S5100 [facility] [address] [place] [address] ADULT; ELDER ELDER PER 15 CARE CARE MINUTES DAY CARE S[address] ADULT; ELDER ELDER PER 15 CARE CARE MINUTES DAY CARE S[address] ADULT; ELDER ELDER PER 15 CARE CARE MINUTES URINLS 77615 Mary HANDY 8 LEANDRA Messer STICK/TAB PSC LET REAGNT NON-AUTO MICRSCPY ADMINISTR G0008 RAMANDEEP OLSONON ATION OF 8 [facility] CENTER VIRUS VACCINE DAY CARE S[address] ADULT; ELDER ELDER PER 15 CARE CARE MINUTES IIV3 80526 [facility] VACCINE 8 [facility] VIRUS 0.5 ML DOSAGE IM USE DAY CARE S[address] ADULT; ELDER ELDER PER 15 CARE CARE MINUTES DAY CARE S[address] ADULT; ELDER ELDER PER 15 CARE CARE MINUTES DAY CARE S[address] ADULT; ELDER ELDER PER 15 CARE CARE MINUTES DAY CARE S[address] ADULT; ELDER ELDER PER 15 CARE CARE MINUTES DAY CARE S[address] ADULT; ELDER ELDER PER 15 CARE CARE MINUTES DAY CARE S[address] ADULT; ELDER ELDER PER 15 CARE CARE MINUTES TRAPEZE E0940 YOSELYN TOPETE BAR 8 HOME MED HOME MED FREESTAND EQUIP. EQUIP. ING [facility] COMPLETE WITH GRAB BAR CULTURE 87466 LAB ANIKA LAB ANIKA BACTERIAL 8 AMERIC AMER[employer] HOLDING HOLDING QUANTTATI VE COLONY COUNT URINE CUL BACT 78410 LAB ANIKA LAB ANIKA AEROBIC 8 AMERIC AMERIC ADDL HOLDING HOLDING METHS DEFINITIV E EA ISOL CULTURE 58999 LAB ANIKA LAB ANIKA BCT 8 AMERIC AMERIC ISOL&PRSM HOLDING HOLDING PTV ID ISOLATE EA URINE SUSCEPTIB 75028 LAB ANIKA LAB ANIKA LTY STDY 8 AMERIC AMERIC ANTIMICRB HOLDING HOLDING IAL MICRO/AGA R DILUTJ HOS BED E0260 YOSELYN TOPETE SEMI-ELEC 8 HOME MED HOME MED W/ANY EQUIP. EQUIP. TYPE SIDE [facility] RAIL W/MATTRSS INTERMIT A4351 OUMAR OUMAR URIN 8 HEALTHCAR HEALTHCAR CATH; E CENTERS E CENTERS STRAIGHT TIP W/WO COAT EA DAY CARE S[address] ADULT; ELDER ELDER PER 15 CARE CARE MINUTES DAY CARE S[address] ADULT; ELDER ELDER PER 15 CARE CARE MINUTES DAY CARE S[address] ADULT; ELDER ELDER PER 15 CARE CARE MINUTES DAY CARE S[address] ADULT; ELDER ELDER PER 15 CARE CARE MINUTES DAY CARE S[address] ADULT; ELDER ELDER PER 15 CARE CARE MINUTES DAY CARE S[address] ADULT; ELDER ELDER PER 15 CARE CARE MINUTES DAY CARE S[address] ADULT; ELDER ELDER PER 15 CARE CARE MINUTES DAY CARE S[address] ADULT; ELDER ELDER PER 15 CARE CARE MINUTES DAY CARE S[address] ADULT; ELDER ELDER PER 15 CARE [...] MON OWN PT EA DAY CARE S5100 [facility] [address] [place] [address] ADULT; ELDER ELDER PER 15 CARE CARE MINUTES DAY CARE S[address] ADULT; ELDER ELDER PER 15 CARE CARE MINUTES DAY CARE S[address] ADULT; ELDER ELDER PER 15 CARE CARE MINUTES DAY CARE S[address] ADULT; ELDER ELDER PER 15 CARE CARE MINUTES DAY CARE S5100 [facility] [address] [place] [address] ADULT; ELDER ELDER PER 15 CARE CARE MINUTES DAY CARE S5100 [facility] [address] [place] [address] ADULT; ELDER ELDER PER 15 CARE CARE MINUTES DAY CARE S5100 [facility] [address] [place] [address] ADULT; ELDER ELDER PER 15 CARE CARE MINUTES DAY CARE S5100 [facility] [address] [place] [address] ADULT; ELDER ELDER PER 15 CARE CARE MINUTES DAY CARE S5100 [facility] [address] [place] [address] ADULT; ELDER ELDER PER 15 CARE CARE MINUTES DAY CARE S5100 [facility] [address] [place] [address] ADULT; ELDER ELDER PER 15 CARE CARE MINUTES DAY CARE S5100 [facility] [address] [place] [address] ADULT; ELDER ELDER PER 15 CARE CARE MINUTES DAY CARE S5100 [facility] [address] [place] [address] ADULT; ELDER ELDER PER 15 CARE CARE MINUTES DAY CARE S5100 [address] [address] ADULT; ELDER ELDER PER 15 CARE CARE MINUTES DAY CARE S5100 [facility] [address] [place] [address] ADULT; ELDER ELDER PER 15 CARE CARE MINUTES DAY CARE S5100 [facility] [address] [place] [address] ADULT; ELDER ELDER PER 15 CARE CARE MINUTES DAY CARE S5100 [facility] [address] [place] [address] ADULT; ELDER ELDER PER 15 CARE CARE MINUTES DAY CARE S[address] ADULT; ELDER ELDER PER 15 CARE CARE MINUTES DAY CARE S5100 [facility] [address] [place] [address] ADULT; ELDER ELDER PER 15 CARE CARE MINUTES DAY CARE S5100 [facility] [address] [place] [address] ADULT; ELDER ELDER PER 15 CARE CARE MINUTES DAY CARE S5100 [facility] [address] [place] [address] ADULT; ELDER ELDER PER 15 CARE CARE MINUTES DAY CARE S5100 [facility] [address] [place] [address] ADULT; ELDER ELDER PER 15 CARE CARE MINUTES DAY CARE S5100 [facility] [address] [place] [address] ADULT; ELDER ELDER PER 15 CARE CARE MINUTES [facility] [address] ROBER, ROBER, MEDICAL 8 KIT A KIT A XM&EVAL COMPRE NEW PT 1/> VST DAY CARE S5100 [facility] [address] [place] [address] ADULT; ELDER ELDER PER 15 CARE CARE MINUTES TRAPEZE E0940 YOSELYNKAY SCHROEDER 8 HOME MED HOME MED FREESTAND EQUIP. [facility]. [facility] COMPLETE WITH GRAB [facility] E0260 YOSELYN YOSELYN SEMI-ELEC 8 HOME MED HOME MED W/ANY EQUIP. EQUIP. TYPE SIDE [facility] RAIL W/MATTRSS DAY CARE S5100 [facility] [address] [place] [address] ADULT; ELDER ELDER PER 15 CARE CARE MINUTES DAY CARE S5100 [facility] [address] [place] [address] ADULT; ELDER ELDER PER 15 CARE CARE MINUTES DAY CARE S5100 [facility] [address] [place] [address] ADULT; ELDER ELDER PER 15 CARE CARE MINUTES DAY CARE S5100 [facility] [address] [place] [address] ADULT; ELDER ELDER PER 15 CARE CARE MINUTES DAY CARE S5100 [facility] [address] [place] [address] ADULT; ELDER ELDER PER 15 CARE CARE MINUTES DAY CARE S5100 [facility] [address] [place] [address] ADULT; ELDER ELDER PER 15 CARE CARE MINUTES DAY CARE S5100 [facility] [address] [place] [address] ADULT; ELDER ELDER PER 15 CARE CARE MINUTES INTERMIT A4351 OUMAR SENA 8 [facility] CATH; E CENTERS E CENTERS STRAIGHT TIP W/WO COAT EA DAY CARE S5100 [facility] [address] [place] [address] ADULT; ELDER ELDER PER 15 CARE CARE MINUTES DAY CARE S5100 [facility] [address] [place] [address] ADULT; ELDER ELDER PER 15 CARE CARE MINUTES DAY CARE S5100 [facility] [address] [place] [address] ADULT; ELDER ELDER PER 15 CARE CARE MINUTES DAY CARE S5100 [facility] [address] [place] [address] ADULT; ELDER ELDER PER 15 CARE CARE MINUTES DAY CARE S5100 [facility] [address] [place] [address] ADULT; ELDER ELDER PER 15 CARE CARE MINUTES DAY CARE S5100 [facility] [address] [place] [address] ADULT; ELDER ELDER PER 15 CARE CARE MINUTES DAY CARE S5100 [facility] [address] [place] [address] ADULT; ELDER ELDER PER 15 CARE CARE MINUTES INCONTINE T4541 [facility] 8 HOME [facility] PRODUCT [facility] DISPOSABL AGENCY AGENCY E UNDPAD LARGE EA ADLT SZD [id number] MADELINE CORREA DISPBL 8 HOME HOME INCONT HEALTH HEALTH PROD AGENCY AGENCY UNDWEAR XTRA LG EA DAY CARE S5100 [facility] [address] [place] [address] ADULT; ELDER ELDER PER 15 CARE CARE MINUTES DAY CARE S5100 [facility] [address] [place] [address] ADULT; ELDER ELDER PER 15 CARE CARE MINUTES DAY CARE S5100 [facility] [address] [place] [address] ADULT; ELDER ELDER PER 15 CARE CARE MINUTES TRAPEZE [id number] [facility] BAR 8 HOME MED HOME MED FREESTAND EQUIP. EQUIP. ING [facility] COMPLETE WITH [facility] [id number] [facility] SEMI-ELEC 8 HOME MED HOME MED W/ANY EQUIP. EQUIP. TYPE SIDE [facility] RAIL W/MATTRSS DAY CARE S5100 [facility] [address] ADULT; ELDER ELDER PER 15 CARE CARE MINUTES DAY CARE S5100 [facility] [address] ADULT; ELDER ELDER PER 15 CARE CARE MINUTES DAY CARE S5100 [facility] [address] ADULT; ELDER ELDER PER 15 CARE CARE MINUTES ECG 06769 [facility] STODDARD, ROUTINE 8 [facility] W/LEAST PROF SERV 12 LDS I&R ONLY IV NFS 45448 [facility] THER 8 [facility] PROPH/DX INC INC 1ST >1 HR COMPREHEN 01141 [facility] SIVE 8 [facility] METABOLIC INC INC PANEL CREATINE 73824 [facility] KINASE MB 8 [facility] FRACTION INC INC ONLY ECG 34157 [facility] ROUTINE 8 [facility] ECG INC INC W/LEAST 12 LDS TRCG ONLY W/O I&R PROTHROMB 46135 [facility] IN TIME 8 [place] [address] [facility] TROPONIN 8 [facility] QUANTITAT INC INC TAYLER BLOOD 85409 [facility] COUNT 8 [facility] COMPLETE INC INC AUTO&AUTO DIFRNTL WBC DRUG 68487 [facility]AY 8 [facility] VALPROIC INC INC DIPROPYLA CETIC ACID TOTAL GROUND A0425 [facility] 8 AMBULANCE AMBULANCE PER SERVICE SERVICE STATUTE MILE AMB A0427 [facility] SERVICE 8 AMBULANCE [facility] [place]SP[place] [address] [place] [address] [facility] [place] HEAD/BRAI 8 MEDICAL YONY P N W/O IMAGING CONTRAST ASSOCIATE MATERIAL S THROMBOPL [id number] RAMANDEEP SABILLON ASTIN 8 [facility] TIME INC INC PARTIAL PLASMA/WH OLE BLOOD 3D 13926 [facility] SHERMANDAY[place], RENDERING 8 MEDICAL YONY P IMAGING W/INTERP& ASSOCIATE POSTPROC S DIFF WORK STATION CREATINE [id number] RAMANDEEP SABILLON KINASE 8 [facility] TOTAL INC INC DAY CARE S5100 RAMANDEEP SABILLON [address] ADULT; ELDER ELDER PER 15 CARE CARE MINUTES DAY CARE S[address] ADULT; ELDER ELDER PER 15 CARE CARE MINUTES DAY CARE S[address] ADULT; ELDER ELDER PER 15 CARE CARE MINUTES DAY CARE S[address] ADULT; ELDER ELDER PER 15 CARE CARE MINUTES BLD GLU A4253 M E D M E D TEST/REAG 8 SUPPLIES SUPPLIES T STRIPS HOME BLD GLU SAT-50 DAY CARE S[address] ADULT; ELDER ELDER PER 15 CARE CARE MINUTES DAY CARE S[address] ADULT; ELDER ELDER PER 15 CARE CARE MINUTES TRAPEZE E0940 YOSELYN SCHROEDER 8 HOME MED HOME MED FREESTAND EQUIP. EQUIP. ING [facility] COMPLETE WITH ART SCHROEDER HOS BED E0260 YOSELYN TOPETE SEMI-ELEC 8 HOME MED HOME MED W/ANY EQUIP. EQUIP. TYPE SIDE [facility] RAIL W/MATTRSS DAY CARE S[address] ADULT; ELDER ELDER PER 15 CARE CARE MINUTES DAY CARE S5[address] ADULT; ELDER ELDER PER 15 CARE CARE MINUTES DAY CARE S[address] ADULT; ELDER ELDER PER 15 CARE CARE MINUTES MEDICAL 18904 DHS/CO RAMANDEEP [address] ASSMT&IVN BANK ACCT TJ INDIV EACH 15 [place] DAY CARE S[address] ADULT; ELDER ELDER PER 15 CARE CARE MINUTES DAY CARE S[address] ADULT; ELDER ELDER PER 15 CARE CARE MINUTES ADLT SZD T4528 [facility] 8 HOME HOME INCONT HEALTH HEALTH PROD AGENCY AGENCY UNDWEAR XTRA LG EA DAY CARE S[address] ADULT; ELDER ELDER PER 15 CARE CARE MINUTES DAY CARE S5[address] ADULT; ELDER ELDER PER 15 CARE CARE MINUTES DAY CARE S[address] ADULT; ELDER ELDER PER 15 CARE CARE MINUTES DAY CARE S[address] ADULT; ELDER ELDER PER 15 CARE CARE MINUTES TRAPEZE E0940 YOSELYN SCHROEDER 8 HOME MED HOME MED FREESTAND EQUIP. EQUIP. [facility] COMPLETE WITH GRAB [facility] HOS BED E0260 YOSELYN TOPETE SEMI-ELEC 8 HOME MED HOME MED W/ANY EQUIP. EQUIP. TYPE SIDE [facility] RAIL W/MATTRSS DAY CARE S[address] ADULT; ELDER ELDER PER 15 CARE CARE MINUTES DAY CARE S[address] ADULT; ELDER ELDER PER 15 CARE CARE MINUTES DAY CARE S[address] ADULT; ELDER ELDER PER 15 CARE CARE MINUTES DAY CARE S[address] ADULT; ELDER ELDER PER 15 CARE CARE MINUTES DAY CARE S5[address] ADULT; ELDER ELDER PER 15 CARE CARE MINUTES DAY CARE S[address] ADULT; ELDER ELDER PER 15 CARE CARE MINUTES DAY CARE S[address] ADULT; ELDER ELDER PER 15 CARE CARE MINUTES INTERMIT A4351 OUMAR SENA 8 [facility] CATH; E CENTERS E CENTERS STRAIGHT TIP W/WO COAT EA DAY CARE S[address] ADULT; ELDER ELDER PER 15 CARE CARE MINUTES DAY CARE S5100 [facility] SERVICES [address] [place] [address] ADULT; ELDER ELDER PER 15 CARE CARE MINUTES DAY CARE S5100 [facility] SERVICES [address] [place] [address] ADULT; ELDER ELDER PER 15 CARE CARE MINUTES DAY CARE S[address] ADULT; ELDER ELDER PER 15 CARE CARE MINUTES DAY CARE S[address] ADULT; ELDER ELDER PER 15 CARE CARE MINUTES DAY CARE S[address] ADULT; ELDER ELDER PER 15 CARE CARE MINUTES DAY CARE S[address] ADULT; ELDER ELDER PER 15 CARE CARE MINUTES DAY CARE S[address] ADULT; ELDER ELDER PER 15 CARE CARE MINUTES DAY CARE S[address] ADULT; ELDER ELDER PER 15 CARE CARE MINUTES DAY CARE S[address] ADULT; ELDER ELDER PER 15 CARE CARE MINUTES DAY CARE S[address] ADULT; ELDER ELDER PER 15 CARE CARE MINUTES DAY CARE S[address] ADULT; ELDER ELDER PER 15 CARE CARE MINUTES DAY CARE S[address] ADULT; ELDER ELDER PER 15 CARE CARE MINUTES TRAPEZE E0940 YOSELYN SCHROEDER 8 HOME MED HOME MED FREESTAND EQUIP. EQUIP. ING [facility] COMPLETE WITH GRAB [facility] HOS BED E0260 YOSELYN TOPETE SEMI-ELEC 8 HOME MED HOME MED W/ANY EQUIP. EQUIP. TYPE SIDE [facility] RAIL W/MATTRSS AIR PRESS E0197 YOSELYN YOSELYN PAD 8 HOME MED HOME MED MATTRSS EQUIP. EQUIP. [employer] MATTRSS LENGTH&WI DT DAY CARE S[address] ADULT; ELDER ELDER PER 15 CARE CARE MINUTES DAY CARE S[address] ADULT; ELDER ELDER PER 15 CARE CARE MINUTES DAY CARE S[address] ADULT; ELDER ELDER PER 15 CARE CARE MINUTES DAY CARE S5[address] ADULT; ELDER ELDER PER 15 CARE CARE MINUTES DAY CARE S[address] ADULT; ELDER ELDER PER 15 CARE CARE MINUTES DAY CARE S[address] ADULT; ELDER ELDER PER 15 CARE CARE MINUTES DAY CARE S[address] ADULT; ELDER ELDER PER 15 CARE CARE MINUTES ADLT SZD T4528 [facility] 8 HOME HOME FORMERLY [facility] PROD AGENCY AGENCY UNDWEAR XTRA LG EA DAY CARE S[address] ADULT; ELDER ELDER PER 15 CARE CARE MINUTES DAY CARE S[address] ADULT; ELDER ELDER PER 15 CARE CARE MINUTES DAY CARE S[address] ADULT; ELDER ELDER PER 15 CARE CARE MINUTES BLD GLU A4253 M E D M E D TEST/REAG 8 SUPPLIES SUPPLIES T STRIPS HOME BLD GLU SAT-50 DAY CARE S[address] ADULT; ELDER ELDER PER 15 CARE CARE MINUTES DAY CARE S5[address] ADULT; ELDER ELDER PER 15 CARE CARE MINUTES DAY CARE S[address] ADULT; ELDER ELDER PER 15 CARE CARE MINUTES DAY CARE S[address] ADULT; ELDER ELDER PER 15 CARE CARE MINUTES DAY CARE S[address] ADULT; ELDER ELDER PER 15 CARE CARE MINUTES DAY CARE S[address] ADULT; ELDER ELDER PER 15 CARE CARE MINUTES DAY CARE S5100 [employer] [facility] [address] [place] [address] ADULT; ELDER ELDER PER 15 CARE CARE MINUTES DAY CARE S5100 RAMANDEEP [employer] [address] [place] [address] ADULT; ELDER ELDER PER 15 CARE CARE MINUTES DAY CARE S5100 RAMANDEEP RAMAN[facility]EP [facility] [address] [place] [address] ADULT; ELDER ELDER PER 15 CARE CARE MINUTES DAY CARE S5100 RAMANDEEP [employer] [address] [place] [address] ADULT; ELDER ELDER PER 15 CARE CARE MINUTES INTERMIT A4351 OUMAR SENA 8 [facility] CATH; E CENTERS E CENTERS STRAIGHT TIP W/WO COAT EA DAY CARE S5100 RAMANDEEP RAMANDEEP SERVICES [address] [place] [address] ADULT; ELDER ELDER PER 15 CARE CARE MINUTES DAY CARE S5100 RAMANDEEP RAMANDEEP SERVICES [address] [place] [address] ADULT; ELDER ELDER PER 15 CARE CARE MINUTES DAY CARE S5100 RAMANDEEP RAMANDEEP [address] ADULT; ELDER ELDER PER 15 CARE CARE MINUTES DAY CARE S5100 RAMANDEEP [employer] [address] [place] [address] ADULT; ELDER ELDER PER 15 CARE CARE MINUTES ADLT SZD [id number] [facility] 8 HOME HOME FORMERLY [facility] PROD AGENCY AGENCY UNDWEAR XTRA LG EA DAY CARE S5100 RAMANDEEP RAMANDEEP [address] ADULT; ELDER ELDER PER 15 CARE CARE MINUTES DAY CARE S5100 RAMANDEEP [employer] [address] [place] [address] ADULT; ELDER ELDER PER 15 CARE CARE MINUTES DAY CARE S5100 RAMANDEEP [employer] [address] [place] [address] ADULT; ELDER ELDER PER 15 CARE CARE MINUTES DAY CARE S5100 RAMANDEEP [employer] [address] [place] [address] ADULT; ELDER ELDER PER 15 CARE CARE MINUTES DAY CARE S5100 RAMANDEEP [employer] [address] [place] [address] ADULT; ELDER ELDER PER 15 CARE CARE MINUTES DAY CARE S5100 RAMANDEEP [employer] [address] [place] [address] ADULT; ELDER ELDER PER 15 CARE CARE MINUTES DAY CARE S5100 RAMANDEEP [employer] [address] [place] [address] ADULT; ELDER ELDER PER 15 CARE CARE MINUTES DAY CARE S5100 RAMANDEEP [employer] [address] [place] [address] ADULT; ELDER ELDER PER 15 CARE CARE MINUTES DAY CARE S5[address] [employer] [address] [place] [address] ADULT; ELDER ELDER PER 15 CARE CARE MINUTES DAY CARE S5100 RAMANDEEP RAMANDEEP SERVICES [address] [place] [address] ADULT; ELDER ELDER PER 15 CARE CARE MINUTES DAY CARE S5100 [facility] [address] [place] [address] ADULT; ELDER ELDER PER 15 CARE CARE MINUTES DAY CARE S5100 RAMANDEEP RAMAN[facility]EP [facility] [address] [place] [address] ADULT; ELDER ELDER PER 15 CARE CARE MINUTES DAY CARE S5100 RAMANDEEP RAMANDEEP [facility] [address] [place] [address] ADULT; ELDER ELDER PER 15 CARE CARE MINUTES DAY CARE S[address] ADULT; ELDER ELDER PER 15 CARE CARE MINUTES DAY CARE S5100 RAMANDEEP RAMANDEEP [facility] [address] [place] [address] ADULT; ELDER ELDER PER 15 CARE CARE MINUTES DAY CARE S[address] ADULT; ELDER ELDER PER 15 CARE CARE MINUTES DAY CARE S5100 RAMANDEEP [address] ADULT; ELDER ELDER PER 15 CARE CARE MINUTES DAY CARE S[address] ADULT; ELDER ELDER PER 15 CARE CARE MINUTES DAY CARE S5100 RAMANDEEP [address] ADULT; ELDER ELDER PER 15 CARE CARE MINUTES ADLT SZD [id number] [facility] DIS[facility]BL 8 HOME HOME INCONT HEALTH HEALTH PROD AGENCY AGENCY UNDWEAR XTRA LG EA INCONTINE T4541 [facility] NCE 8 HOME HOME PRODUCT HEALTH HEALTH DISPOSABL AGENCY AGENCY E UNDPAD LARGE EA DAY CARE S5100 [facility] [address] ADULT; ELDER ELDER PER 15 CARE CARE MINUTES DAY CARE S[address] ADULT; ELDER ELDER PER 15 CARE CARE MINUTES Encounters Encounter Start End Date Code Location Performer Type Date HOME [facility] 0 HOME OUTPATIEN [facility]ALTH [facility] RAMANDEEP - 0 0 [facility]EN [facility] T HOME [facility], 0 0 DIST OTHER HEALTH DEPT RN ONCOLOGY HOME [facility], 0 0 DIST [facility] DEPT RN ONCOLOGY HOME [facility], 0 0 HOME OUTPATIEN HEALTH T AGENCY HOME [facility], 0 0 DIST OTHER HEALTH DEPT RN ONCOLOGY OFFICE 41658 CHASE GALARZAPATIEN 9 9 LEANDRA Hernandez T VISIT PSC 15 MINUTES OFFICE 61137 CHASE MCGREGORPATIJOSE FRANCISCO 9 9 LEANDRA PETIT T VISIT 5 PSC MINUTES HOME [facility], 9 9 DIST OTHER HEALTH DEPT RN ONCOLOGY HOME [facility], 9 9 HOME OUTPATIEN HEALTH T AGENCY OFFICE 28880 TERRY RUIZ 9 9 [facility] T VISIT SERV 15 FOUNDATIO MINUTES HOME [facility], 9 9 DIST OTHER HEALTH DEPT RN ONCOLOGY HOME [facility], 9 9 HOME OUTPATIEN HEALTH T [facility] RAMANDEEP - 9 9 [facility] OUTPATIEN INC T HOME [facility], 9 9 DIST OTHER HEALTH DEPT RN ONCOLOGY OFFICE 77574 TIM SCHULTE, CONSULTBERTRAND 9 9 MEDICAL NILDA ION SERV NEW/ESTAB FOUNDATIO PATIENT 60 MIN HOME [facility], 9 9 DIST OTHER HEALTH DEPT RN ONCOLOGY OFFICE 13915 Mary HANDYPATIEN 9 9 LEANDRA Rhodes VISIT PSC 15 MINUTES OFFICE 32552 Mary HANDYPATIEN 9 9 LEANDRA Messer T VISIT PSC 15 MINUTES HOME [facility], 9 9 DIST OTHER HEALTH DEPT RN ONCOLOGY HOME [facility], 9 9 HOME OUTPATIEN HEALTH T [facility] RAMANDEEP - 9 9 [facility] OUTPATIEN INC T HOME [facility], 9 9 DIST OTHER HEALTH DEPT RN ONCOLOGY HOME [facility], 9 9 DIST OTHER HEALTH DEPT RN ONCOLOGY HOME [facility], 9 9 HOME OUTPATIEN HEALTH T AGENCY OFFICE 40925 Mary MANLEY OUTPATIEN 9 9 LEANDRA Hernandez T VISIT PSC 15 MINUTES HOME [facility], 9 9 DIST OTHER HEALTH DEPT RN ONCOLOGY OFFICE 76706 Mary ALMANZAR OUTPATIEN 9 9 LEANDRA PETIT T VISIT 5 PSC MINUTES OFFICE 53911 Mary MANLEY OUTPATIEN 9 9 LEANDRA Hernandez T VISIT PSC 15 MINUTES HOME [facility], 9 9 DIST OTHER HEALTH DEPT RN ONCOLOGY HOME [facility], 9 9 HOME OUTPATIEN HEALTH T AGENCY OFFICE 82869 DHS/CO RAMANDEEP OUTPATIEN 9 9 HEALTH CO HEALTH T VISIT [facility] 15 BANK ACCT MINUTES HOME [facility], 9 9 DIST OTHER HEALTH DEPT RN ONCOLOGY HOME [facility], 9 9 DIST OTHER HEALTH DEPT RN ONCOLOGY OFFICE 77729 Mary HANDY OUTPATIEN 9 9 LEANDRA Messer T VISIT PSC 15 MINUTES HOME [facility], 9 9 HOME OUTPATIEN HEALTH T AGENCY HOME [facility], 9 9 DIST OTHER HEALTH DEPT RN ONCOLOGY OFFICE 40728 Mary HANDY OUTPATIEN 9 9 LEANDRA Messer T VISIT 5 PSC MINUTES HOME [facility], 9 9 HOME OUTPATIEN HEALTH T AGENCY HOME [facility], 9 9 DIST OTHER HEALTH DEPT RN ONCOLOGY HOME [facility], 9 9 DIST OTHER HEALTH DEPT RN ONCOLOGY OFFICE 53739 Mary HANDY OUTPATIEN 9 9 LEANDRA Rhodes VISIT 5 PSC MINUTES HOME [facility], 9 9 HOME OUTPATIEN HEALTH T AGENCY OFFICE 29530 Mary HANDY OUTPATIEN 9 9 LEANDRA Rhodes VISIT 5 PSC MINUTES OFFICE 42514 Mary HANDY OUTPATIEN 9 9 LEANDRA Rhodes VISIT PSC 15 MINUTES HOME [facility], 9 9 DIST OTHER HEALTH DEPT RN ONCOLOGY OFFICE 03617 Mary HANDY OUTPATIEN 9 9 LEANDRA Rhodes VISIT 5 PSC MINUTES HOME [facility], 9 9 DIST OTHER HEALTH DEPT RN ONCOLOGY HOME [facility], 9 9 HOME OUTPATIEN HEALTH T AGENCY HOME [facility], 8 8 DIST OTHER HEALTH DEPT RN ONCOLOGY HOME [facility], 8 8 HOME OUTPATIEN HEALTH T AGENCY HOME [facility], 8 8 DIST OTHER HEALTH DEPT RN ONCOLOGY OFFICE 65415 Mary HANDY OUTPATIEN 8 8 LEANDRA Rhodes VISIT 5 PSC MINUTES HOME [facility], 8 8 DIST OTHER HEALTH DEPT RN ONCOLOGY HOME [facility], 8 8 HOME OUTPATIEN HEALTH T AGENCY HOME [facility], 8 8 DIST OTHER HEALTH DEPT RN ONCOLOGY HOME [facility] 8 8 DIST OTHER HEALTH DEPT RN ONCOLOGY HOME [facility], 8 8 HOME OUTPATIEN HEALTH T AGENCY OFFICE 77936 Mary HANDY OUTPATIEN 8 8 LEANDRA Rhodes VISIT PSC 15 MINUTES HOSPITAL RAMANDEEP - 8 8 [facility] OUTPATIEN INC T EMERGENCY 29386 RAMANDEEP 8 8 [facility] DEPARTMEN INC T VISIT HIGH/URGE NT SEVERITY EMERGENCY 15461 JEEVAN MARINOUriel, 8 8 [facility] VISIT ON MODERATE SEVERITY [facility], 8 8 DIST OTHER HEALTH DEPT RN ONCOLOGY OFFICE 08349 Mary HANDY OUTPATIJOSE FRANCISCO 8 8 LEANDRA Messer T VISIT [facility] 15 MINUTES HOME [facility], 8 8 DIST OTHER HEALTH DEPT RN ONCOLOGY HOME [facility], 8 8 HOME OUTPATIEN HEALTH T AGENCY HOME [facility] 8 8 DIST OTHER [facility] DEPT RN [facility]COLOGY [facility], 8 8 HOME OUTPATIEN HEALTH T [facility]ENCY [facility], 8 8 DIST OTHER HEALTH DEPT RN ONCOLOGY OFFICE 25161 DHS/CO RAMANDEEP OUTPATIEN 8 8 HEALTH CO HEALTH T VISIT [facility] 10 BANK ACCT MINUTES HOME [facility] 8 8 DIST OTHER HEALTH DEPT RN ONCOLOGY HOME [employer] HEALTH, 8 8 HOME OUTPATIEN HEALTH T AGENCY OFFICE 34614 DHS/CO RAMANDEEP OUTPATIEN 8 8 HEALTH CO HEALTH T VISIT [facility] 15 BANK ACCT MINUTES HOME [employer] HEALTH, 8 8 DIST OTHER HEALTH DEPT RN ONCOLOGY HOME [employer] HEALTH, 8 8 HOME OUTPATIEN HEALTH T AGENCY [facility], 8 8 DIST OTHER HEALTH DEPT RN ONCOLOGY
--- OUTSIDE RECORDS SUMMARY | 2016-12-16 18:33 | External Medical Summary Rpt ---
Demographics Preferred Language Romanian Marital Status Unknown Episcopal Affiliation Unknown Race Unknown Ethnic Group Unknown Author Author , Organization [employer] Address Unknown Phone Unavailable Purpose Continuity of Care Document - through 2016 Immunization No patient found.
--- OUTSIDE RECORDS SUMMARY | 2016-12-16 18:33 | External Medical Summary Rpt ---
Demographics Preferred Language Maori Marital Status Unknown Latter-Day Affiliation Unknown Race Unknown Ethnic Group Unknown Author Author , Organization [employer] Address Unknown Phone Unavailable Purpose Continuity of Care Document - through 2016 Immunization No patient found.
--- OUTSIDE RECORDS SUMMARY | 2016-12-16 19:52 | External Medical Summary Rpt ---
Author Author , Organization [employer] Address Unknown Phone Unavailable Care Team Providers Care Shirt Closer Name Role Phone ALBA STODDARD, Unavailable Unavailable ALBA STODDARD ANTONIO, Unavailable Unavailable [facility] Unavailable Unavailable SERVICE, [facility] Unavailable Unavailable CENTERS, [facility] Unavailable Unavailable INC, [facility] Unavailable Unavailable CENTER, [facility] Unavailable Unavailable CARE, [facility] Unavailable Unavailable INC, [facility] KIT RICHTER, Unavailable Unavailable KIT RICHTER [facility] Unavailable Unavailable [facility], [facility] Unavailable Unavailable HOLDING, [facility] M E D SUPPLIES, M E D Unavailable Unavailable SUPPLIES YONY BURRIS, Unavailable Unavailable YONY BURRIS STEPHEN A, Unavailable Unavailable ALBA MANLEY MARC D, Unavailable Unavailable FLAKITA LEAL [facility] Unavailable Unavailable ASSOCIATES,[facility], [facility] DAMASO ALMANZAR, Unavailable Unavailable DAMASO ALMANZAR BABATUNDE O, Unavailable Unavailable BARNEY ORTIZ [facility] Unavailable Unavailable [facility], 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, [facility] DEPT AERODYNAMICS PROFESSOR [facility] Unavailable Unavailable AGENCY, [facility] Taurus Vázquez Unavailable Unavailable III , Taurus Vázquez III Mary MATIAS, LEANDRA, Unavailable Unavailable A C Purpose Continuity of Care Document - 08-20-2007 through 2016 Problems Code Diagnosis DOS Provider Status 250.00 250.00 DIAB 01-31-2013 [facility], [facility] Hospital II OR UNSPEC TYPE, NOT UNCNTRLD 401.9 401.9 06-15-2013 Ramandeep HYPERTENSIO [facility] N NOS Hospital 729.81 729.81 01-31-2013 Ramandeep SWELLING OF [facility] LIMB Hospital 780.39 780.39 01-31-2013 Ramandeep OTHER [facility] CONVULSIONS Hospital V12.54 V12.54 01-31-2013 Ramandeep PERSONAL HX [facility] OF TIA,& Hospital CEREBRAL INFARCTION W/OUT RES DEFICITS V58.61 V58.61 01-31-2013 Ramandeep ANTICOAGULA [facility] NTS,LT,[facility] Hospital ENT USE V58.69 V58.69 OTH 01-31-2013 Ramandeep MED,LT,[facility] ENT USE Hospital 97927 DIAB W/O 11-11-2009 M E D MENTION SUPPLIES COMP TYPE II/UNS TYPE UNCNTRL 01695 UNSPECIFIED 11-10-2009 [facility] INCONTINENC CENTERS E 4389 UNSPEC LATE 11-07-2009 [facility] EFF HEALTH CEREBRVASC AGENCY DZ DUE CEREBRVASC DZ 7197 DIFFICULTY 11-07-2009 [facility] IN WALKING HEALTH AGENCY 34946 OTHER 11-07-2009 [facility] MALAISE AND HEALTH FATIGUE AGENCY 437 OTHER 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 ULAR [facility]EASE 5950 ACUTE 10-24-2009 [facility]STITIS [facility] 86143 INCOMPLETE 10-24-2009 [facility] BLADDER [facility] EMPTY[facility] INC 4019 UNSPECIFIED 10-17-2009 [facility] DE[facility] HYPERTENSIO AERODYNAMICS PROFESSOR N 496 CHRONIC 10-17-2009 [facility] DEPT OBSTRUCTION AERODYNAMICS PROFESSOR NEC 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MEL, OSIS OF FLAKITA Penaloza NAIL 7295 PAIN IN 10-07-2009 MEL, SOFT FLAKITA Penaloza TISSUES OF LIMB 82662 DIAB W/O 08-02-2009 [facility] COMP TYPE AMERIC II/UNS NOT HOLDING STATED UNCNTRL 84143 OTH FORM 08-02-2009 [facility] EPILEPSY & AMERIC RECUR HOLDING SEIZUR NO INTRACT EPIL 4011 ESSENTIAL 08-02-2009 [facility] HYPERTENSIO AMERIC N, BENIGN HOLDING 4659 ACUTE URIS 08-02-2009 Mary COATS PSC UNSPECIFIED SITE V5861 LONG-TERM 08-02-2009 Mary MOBLEY (CURRENT) PSC USE OF ANTICOAGULA NTS 5990 URINARY 08-01-2009 [facility] TRACT AMERIC INFECTION HOLDING SITE NOT SPECIFIED 40501 UNSPECIFIED 06-29-2009 [facility] N V0481 NEED 06-01-2009 [facility] VACCINATION &INOCULATIO N FLU 2724 OTHER AND 05-26-2009 [facility] UNSPECIFIED [facility] HYPERLIPIDE ROXANNA 56388 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 436 ACUTE BUT 12-03-2008 [facility] ILL-DEFINED [facility] CEREBROVASC ULAR DISEASE 98442 OTHER 11-24-2008 Mary MOBLEY CONVULSIONS PSC E9479 UNSPEC 11-24-2008 [facility] RX/MEDICINA AMERIC L SBSTNC [place] [address] MALIG HTN 10-08-2008 [facility], [facility] HEART FAIL 4589 UNSPECIFIED 10-08-2008 [facility] 4660 ACUTE 10-08-2008 PROST[facility]& BRONCHITIS [facility], [facility] 3320 PARALYSIS 10-01-2008 [facility] AGITANS HEALTH AGENCY 5964 ATONY OF 10-01-2008 [facility] BLADDER HEALTH AGENCY V5789 OTHER 10-01-2008 [facility] SPECIFIED HEALTH REHABILITAT AGENCY ION PROCEDURE OTHER 40620 UNSPECIFIED 07-13-2008 [facility] URINE CENTERS 7802 SYNCOPE AND 02-24-2008 Mary MOBLEY COLLAPSE PSC 7804 DIZZINESS 02-23-2008 [facility] GIDDINESS SERVICE V653 DIETARY 01-21-2008 [facility] SURVEILLANC HEALTH E AND CENTRAL COUNSELING BANK ACCT V7791 SCREENING 11-06-2007 [facility] FOR LIPOID HEALTH DISORDERS CENTRAL BANK ACCT 7806 FEVER & OTH 09-02-2007 [facility] DISTURBANCE S TEMP [...] on t er Refuse d IIV3 [place] No VACCIN 2008 [facility] 0.5 ML DOSAGE IM USE IIV3 [place] No VACCIN 2008 [facility] 0.5 ML DOSAGE IM USE IIV3 [place] No VACCIN 2007 [facility] E HEALTH [...] DAY CARE S5100 [facility] SERVICES 0 [facility] ADULT; ELDER ELDER PER 15 CARE CARE MINUTES DAY CARE S5100 [facility] 0 [facility] ADULT; ELDER ELDER PER 15 CARE CARE MINUTES DAY CARE S5100 [facility] 0 [facility] ADULT; ELDER ELDER PER 15 CARE CARE MINUTES BLD GLU A4253 M E D M E D TEST/REAG 0 SUPPLIES SUPPLIES T STRIPS HOME BLD GLU MON-50 LANCETS A4259 M E D M E D PER BOX 0 SUPPLIES SUPPLIES OF 100 DAY CARE S5100 [facility] 0 [facility] ADULT; ELDER ELDER PER 15 CARE CARE MINUTES INTERMIT A4351 [facility] URIN 0 [facility] CATH; E CENTERS E CENTERS STRAIGHT TIP W/WO COAT EA DAY CARE S5100 [facility] 0 [facility] ADULT; ELDER ELDER PER 15 CARE CARE MINUTES DAY CARE S5100 [facility] 0 [facility] ADULT; ELDER ELDER PER 15 CARE CARE MINUTES ADLT SZD T4528 [facility] HOME INCONT HEALTH HEALTH PROD AGENCY AGENCY UNDWEAR XTRA LG EA INCONTINE T4541 [facility] NCE 0 HOME HOME PRODUCT HEALTH HEALTH DISPOSABL AGENCY AGENCY E UNDPAD LARGE EA DAY CARE S5100 [facility] SERVICES 0 [facility] ADULT; ELDER ELDER PER 15 CARE CARE MINUTES DAY CARE S5100 [facility] 0 [facility] ADULT; ELDER ELDER PER 15 CARE CARE MINUTES DAY CARE S5100 [facility] SERVICES 0 [facility] ADULT; ELDER ELDER PER 15 CARE CARE MINUTES DAY CARE S5100 [facility] 0 [facility] ADULT; ELDER ELDER PER 15 CARE CARE MINUTES DAY CARE S5100 [facility] OLSONON SERVICES 0 [facility] ADULT; ELDER ELDER PER 15 CARE CARE MINUTES CULTURE 34352 [facility] BACTERIAL 0 [facility] INC INC QUANTTATI VE COLONY COUNT URINE CULTURE 32616 [facility] BCT 0 [facility] ISOL&PRSM INC INC PTV ID ISOLATE EA URINE SUSCEPTIB 41211 [facility] LTY STDY 0 [facility] ANTIMICRB INC INC IAL MICRO/AGA R DILUTJ DAY CARE S5100 [facility] 0 [facility] ADULT; ELDER ELDER PER 15 CARE CARE MINUTES DAY CARE S5100 [facility]DEEPSHEREE SABILLON SERVICES 0 [facility] ADULT; ELDER ELDER PER 15 CARE CARE MINUTES DAY CARE S5100 [facility] 0 [facility] ADULT; ELDER ELDER PER 15 CARE CARE MINUTES DAY CARE S5100 [facility] 0 [facility] ADULT; ELDER ELDER PER 15 CARE CARE MINUTES DAY CARE S5100 [facility] SERVICES 0 [facility] ADULT; ELDER ELDER PER 15 CARE CARE MINUTES DAY CARE S5100 [facility] SERVICES 0 [facility] ADULT; ELDER ELDER PER 15 CARE CARE MINUTES DAY CARE S5100 [facility]DEEPSHEREE SABILLON SERVICES 0 [facility] ADULT; ELDER ELDER PER 15 CARE CARE MINUTES DAY CARE S5100 [facility] RAMANDEEP SERVICES 0 [facility] ADULT; ELDER ELDER PER 15 CARE CARE MINUTES INTERMIT A4351 [facility] O[facility]ARW[facility] SENA 0 [facility] CATH; E CENTERS E CENTERS STRAIGHT TIP W/WO COAT DAY CARE S5100 [facility] SERVICES 0 [facility] ADULT; ELDER ELDER PER 15 CARE CARE MINUTES DAY CARE S5100 [facility] RAM[facility]DE[facility] SERVICES 0 [facility] ADULT; ELDER ELDER PER 15 CARE CARE MINUTES DAY CARE S5100 [facility]EP RAMANDEEP SERVICES 0 [facility] ADULT; ELDER ELDER PER 15 CARE CARE MINUTES DAY CARE S5100 RAM[facility]EP RAM[facility]DEEP SERVICES 0 [facility] ADULT; ELDER ELDER PER 15 CARE CARE MINUTES DAY CARE S5100 RAM[facility]EP RAMANDEEP SERVICES 0 [facility] ADULT; ELDER ELDER PER 15 CARE CARE MINUTES DAY CARE S5100 [facility]EP RAMANDEEP SERVICES 0 [facility] ADULT; ELDER ELDER PER 15 CARE CARE MINUTES ADLT SZD T4528 [facility] HOME HOME INCONT HEALTH HEALTH PROD AGENCY AGENCY UNDWEAR XTRA LG EA DAY CARE S[address] ADULT; ELDER ELDER PER 15 CARE CARE MINUTES DAY CARE S[address] ADULT; ELDER ELDER PER 15 CARE CARE MINUTES DAY CARE S[address] ADULT; ELDER ELDER PER 15 CARE CARE MINUTES DAY CARE S[address] ADULT; ELDER ELDER PER 15 CARE CARE MINUTES DAY CARE S[address] ADULT; ELDER ELDER PER 15 CARE CARE MINUTES DAY CARE S[address] ADULT; ELDER ELDER PER 15 CARE CARE MINUTES PROTHROMB 76588 Mary MANLEY, IN TIME 9 LEANDRA Hernandez PSC INJ J0702 Mary MANLEY BETAMETHA 9 LEANDRA Hernandez SONE PSC ACETATE & PHOSPHATE 3 MG BASIC 72369 [facility] METABOLIC 9 AMERIC AMERIC PANEL HOLDING HOLDING CALCIUM TOTAL IM ADM 48599 Mary MANLEY PRQ ID 9 LEANDRA Hernandez SUBQ/IM PSC NJXS 1 VACCINE COLLECTIO 42180 Mary MANLEY N VENOUS 9 LEANDRA Hernandez BLOOD PSC VENIPUNCT URE GLUCOSE 87998 Mary MANLEY QUANTITAT 9 LEANDRA Hernandez TAYLER BLOOD PSC XCPT REAGENT STRIP HEMOGLOBI 85657 Mary MANLEY N 9 LEANDRA Hernandez GLYCOSYLA PSC SUSAN A1C DRUG 11070 [facility] LAB ANIKA ASSAY 9 AMERIC AMERIC VALPROIC HOLDING HOLDING DIPROPYLA CETIC ACID TOTAL SUSCEPTIB 54991 [facility] LTY STDY 9 AMERIC AMERIC ANTIMICRB HOLDING HOLDING IAL MICRO/AGA R DILUTJ URINLS 37902 Mary ALMANZAR DIP 9 LEANDRA WHITESIDE DAMASO STICK/TAB PSC LET REAGNT NON-AUTO MICRSCPY CUL BACT 97336 [facility] AEROBIC 9 AMERIC AMERIC ADDL HOLDING HOLDING METHS DEFINITIV E EA ISOL CULTURE 63068 [facility] BACTERIAL 9 AMERIC AMERIC HOLDING HOLDING QUANTTATI VE COLONY COUNT URINE CULTURE 12422 [facility] BCT 9 AMERIC AMERIC ISOL&PRSM HOLDING HOLDING PTV ID ISOLATE EA URINE DAY CARE S[address] ADULT; ELDER ELDER PER 15 CARE CARE MINUTES DAY CARE S[address] ADULT; ELDER ELDER PER 15 CARE CARE MINUTES DAY CARE S[address] ADULT; ELDER ELDER PER 15 CARE CARE MINUTES DAY CARE S[address] ADULT; ELDER ELDER PER 15 CARE CARE MINUTES DAY CARE S[address] ADULT; ELDER ELDER PER 15 CARE CARE MINUTES ADLT SZD T4528 [facility] 9 HOME HOME INCONT HEALTH HEALTH PROD AGENCY AGENCY UNDWEAR XTRA LG EA DEBRIDEME 09406 PAWSAT, PAWSAT, NT NAIL 9 FLAKITA Penaloza ANY METHOD 6/> DAY CARE S[address] ADULT; ELDER ELDER PER 15 CARE CARE MINUTES DAY CARE S[address] ADULT; ELDER ELDER PER 15 CARE CARE MINUTES INTERMIT A4351 [facility]; E CENTERS E CENTERS STRAIGHT TIP W/WO COAT EA DAY CARE S[address] ADULT; ELDER ELDER PER 15 CARE CARE MINUTES DAY CARE S[address] ADULT; ELDER ELDER PER 15 CARE CARE MINUTES DAY CARE S[address] ADULT; ELDER ELDER PER 15 CARE CARE MINUTES DAY CARE S[address] ADULT; ELDER ELDER PER 15 CARE CARE MINUTES DAY CARE S[address] ADULT; ELDER ELDER PER 15 CARE CARE MINUTES DAY CARE S[address] ADULT; ELDER ELDER PER 15 CARE CARE MINUTES DAY CARE S[address] ADULT; ELDER ELDER PER 15 CARE CARE MINUTES DAY CARE S5100 [facility] SERVICES 9 [facility] ADULT; ELDER ELDER PER 15 CARE CARE MINUTES DAY CARE S5100 [facility] SERVICES 9 [facility] ADULT; ELDER ELDER PER 15 CARE CARE MINUTES DAY CARE S5100 [facility] SERVICES 9 [facility] ADULT; ELDER ELDER PER 15 CARE CARE MINUTES DAY CARE S5100 RAMANDEEP SABILLON [facility] 9 [facility] ADULT; ELDER ELDER PER 15 CARE CARE MINUTES DAY CARE S5100 RAMANDEEP SABILL[facility] [address] ADULT; ELDER ELDER PER 15 CARE CARE MINUTES DAY CARE S5100 [facility] SERVICES 9 [facility] ADULT; ELDER ELDER PER 15 CARE CARE MINUTES DAY CARE S5100 [facility] SERVICES 9 [facility] ADULT; ELDER ELDER PER 15 CARE CARE MINUTES INCONTINE T4541 [facility] NCE 9 HOME HOME PRODUCT HEALTH HEALTH DISPOSABL AGENCY AGENCY E UNDPAD LARGE EA DAY CARE S5100 RAMANDEEP SABILLON [facility] 9 [facility] ADULT; ELDER ELDER PER 15 CARE CARE MINUTES DAY CARE S5100 RAMANDEEP SABILLON [facility] 9 [facility] ADULT; ELDER ELDER PER 15 CARE CARE MINUTES IIV3 28801 [facility] VACCINE 9 [facility] CENTER VIRUS 0.5 ML DOSAGE IM USE ADMINISTR G0008 [facility] S[facility] ATION OF 9 [facility] CENTER VIRUS VACCINE ADLT SZD T4528 [facility] 9 HOME HOME INCONT HEALTH HEALTH PROD AGENCY AGENCY UNDWEAR XTRA LG EA DAY CARE S5100 [facility] SERVICES 9 [facility] ADULT; ELDER ELDER PER 15 CARE CARE MINUTES DAY CARE S5100 [facility] SERVICES [address] [place] [address] ADULT; ELDER ELDER PER 15 CARE CARE MINUTES BASIC 84810 [facility] S[facility] METABOLIC 9 [facility] [place] [address] RAM[facility] S[facility] THYROID 9 [facility] STIMULATI INC INC NG HORMONE TSH COLLECTIO 64039 [facility] N VENOUS 9 [facility] BLOOD INC INC VENIPUNCT URE INTERMIT A4351 [facility]; E CENTERS E CENTERS STRAIGHT TIP W/WO COAT EA DAY CARE S[address] ADULT; ELDER ELDER PER 15 CARE CARE MINUTES DAY CARE S[address] ADULT; ELDER ELDER PER 15 CARE CARE MINUTES DAY CARE S[address] ADULT; ELDER ELDER PER 15 CARE CARE MINUTES DAY CARE S[address] ADULT; ELDER ELDER PER 15 CARE CARE MINUTES DAY CARE S[address] ADULT; ELDER ELDER PER 15 CARE CARE MINUTES DAY CARE S[address] ADULT; ELDER ELDER PER 15 CARE CARE MINUTES DAY CARE S[address] ADULT; ELDER ELDER PER 15 CARE CARE MINUTES DAY CARE S[address] ADULT; ELDER ELDER PER 15 CARE [...] T STRIPS HOME BLD GLU MON-50 IIV3 03255 RAMANDEEP SABILLON VACCINE 9 [facility] SPLIT CENTER CENTER VIRUS 0.5 ML DOSAGE IM USE ADMINISTR G0008 RAM[facility]EP S[facility]ILL[facility] ATION OF 9 [facility] INFLUENZA CENTER CENTER VIRUS VACCINE DAY CARE S[address] ADULT; ELDER ELDER PER 15 CARE CARE MINUTES DAY CARE S[address] ADULT; ELDER ELDER PER 15 CARE CARE MINUTES DAY CARE S[address] ADULT; ELDER ELDER PER 15 CARE CARE MINUTES DAY CARE S5100 [place] [address] [place] ADULT; ELDER ELDER PER 15 CARE CARE MINUTES DAY CARE S5100 RAMANDEEP [address] ADULT; ELDER ELDER PER 15 CARE CARE MINUTES DAY CARE S[address] ADULT; ELDER ELDER PER 15 CARE CARE MINUTES DAY CARE S5100 RAMAN[facility]EP [address] ADULT; ELDER ELDER PER 15 CARE CARE MINUTES DAY CARE S[address] ADULT; ELDER ELDER PER 15 CARE CARE MINUTES DAY CARE S5100 RAMANDEEP [address] ADULT; ELDER ELDER PER 15 CARE CARE MINUTES DAY CARE S[address] ADULT; ELDER ELDER PER 15 CARE CARE MINUTES INTERMIT A4351 [facility]; E CENTERS E CENTERS STRAIGHT TIP W/WO COAT EA DAY CARE S5100 RAMANDEEP [address]EP[address] ADULT; ELDER ELDER PER 15 CARE CARE MINUTES DAY CARE S5100 RAMAN[facility]EP [address] ADULT; ELDER ELDER PER 15 CARE CARE MINUTES DAY CARE S5100 RAMAN[facility]EP [address] ADULT; ELDER ELDER PER 15 CARE CARE MINUTES DAY CARE S[address] ADULT; ELDER ELDER PER 15 CARE CARE MINUTES [facility] S5100 [facility] [address] ADULT; ELDER ELDER PER 15 CARE CARE MINUTES ADLT SZD T4528 [facility] 9 HOME HOME [facility] HEALTH HEALTH PROD AGENCY AGENCY UNDWEAR XTRA LG EA DAY CARE S5100 RAMANDEEP RAMANDEEP [place] [address] [place] [address] ADULT; ELDER ELDER PER 15 CARE CARE MINUTES DAY CARE S5100 [facility]EP [address] ADULT; ELDER ELDER PER 15 CARE CARE MINUTES DAY CARE S[address] ADULT; ELDER ELDER PER 15 CARE CARE MINUTES OPHTH 74685 ROBER, ROBER, MEDICAL 9 KIT A KIT A XM&JOELLE COMPRHNSV ESTAB PT 1/> DAY CARE S5100 [facility] SERVICES [address] [place] [address] ADULT; ELDER ELDER PER 15 CARE CARE MINUTES DAY CARE S5100 RAM[facility]EP SABILL[facility] [address] ADULT; ELDER ELDER PER 15 CARE CARE MINUTES DAY CARE S5100 [facility] SERVICES [address] [place] [address] ADULT; ELDER ELDER PER 15 CARE CARE MINUTES DAY CARE S5100 [facility] SERVICES [address] [place] [address] ADULT; ELDER ELDER PER 15 CARE CARE MINUTES DAY CARE S5100 [facility]EP SABILL[facility] [address] ADULT; ELDER ELDER PER 15 CARE CARE MINUTES COLLECTIO 16083 [facility] N VENOUS 9 [facility] BLOOD INC INC VENIPUNCT URE BASIC 83918 [facility] S[facility] METABOLIC 9 [facility] [place] [address] [facility] RETROPERI 9 [facility] TONEAL INC INC REAL TIME W/IMAGE COMPLETE DAY CARE S5100 RAMANDEEP SABILL[facility] [address] ADULT; ELDER ELDER PER 15 CARE CARE MINUTES DAY CARE S5100 RAMAN[facility]EP SABILL[facility] [address] ADULT; ELDER ELDER PER 15 CARE CARE MINUTES DAY CARE S5100 RAMANDEEP SABILL[facility] [address] ADULT; ELDER ELDER PER 15 CARE CARE MINUTES DAY CARE S5100 RAMAN[facility]EP SAB[facility] [address] ADULT; ELDER ELDER PER 15 CARE CARE MINUTES DAY CARE S5100 [facility]EP SAB[facility] [address] ADULT; ELDER ELDER PER 15 CARE CARE MINUTES DAY CARE S5100 [facility]EP SAB[facility] [address] ADULT; ELDER ELDER PER 15 CARE CARE MINUTES DAY CARE S5100 [facility]EP S[facility] [address] ADULT; ELDER ELDER PER 15 CARE CARE MINUTES DAY CARE S5100 RAMAN[facility]EP SAB[facility] [address] ADULT; ELDER ELDER PER 15 CARE CARE MINUTES DAY CARE S5100 RAMANDEEPSHEREE SABILLON [address] ADULT; ELDER ELDER PER 15 CARE CARE MINUTES DAY CARE S5100 RAMANDEEPSHEREE SABILLON [address] ADULT; ELDER ELDER PER 15 CARE CARE MINUTES DAY CARE S5100 [facility]ANDEEPSHEREE SABILL[facility] [address] ADULT; ELDER ELDER PER 15 CARE CARE MINUTES TRANS L3620 [place] [facility] ORTHOS 1 9 [facility] SHOE-ANOT PROSTH PROSTH HER SLD INC INC STIRRUP EXISTING REPAIR L4205 [place] [facility] ORTHOTIC 9 [facility] DEVC PROSTH PROSTH LABOR INC INC COMPONENT PER 15 MIN ADD LW L2270 [place] C[facility] EXT 9 [facility]ACE BRACE VARUS/TARI PROSTH PROSTH ROBERTA WILMER INC INC STRAP PAD/LINE PAD DIAB ONLY A5500 [facility] FIT CSTM 9 BRACE BRACE PREP&SPL PROSTH PROSTH SHOE MX INC INC DNSITY INSRT DAY CARE S[address] ADULT; ELDER ELDER PER 15 CARE CARE MINUTES DAY CARE S[address] ADULT; ELDER ELDER PER 15 CARE CARE MINUTES DAY CARE S[address] ADULT; ELDER ELDER PER 15 CARE CARE MINUTES DAY CARE S[address] ADULT; ELDER ELDER PER 15 CARE CARE MINUTES DAY CARE S[address] ADULT; ELDER ELDER PER 15 CARE CARE MINUTES ADLT SZD [id number] [facility] HEALTH PROD AGENCY AGENCY UNDWEAR XTRA LG EA DAY CARE S[address] ADULT; ELDER ELDER PER 15 CARE CARE MINUTES INTERMIT A4351 OUMAR OUMAR URIN 9 [facility] CATH; E CENTERS E CENTERS STRAIGHT TIP W/WO COAT EA URINLS 91636 A C SINDHU, DIP 9 LEANDRA Hernandez STICK/TAB PSC LET REAGNT NON-AUTO MICRSCPY CULTURE 53930 LAB [facility] BACTERIAL 9 [employer] QUANTTATI VE COLONY COUNT URINE DAY CARE S[address] ADULT; ELDER ELDER PER 15 CARE CARE MINUTES DAY CARE S5[address] ADULT; ELDER ELDER PER 15 CARE CARE MINUTES DAY CARE S5[address] ADULT; ELDER ELDER PER 15 CARE CARE MINUTES DAY CARE S5[address] ADULT; ELDER ELDER PER 15 CARE CARE MINUTES CULTURE 63071 LAB [facility] BACTERIAL 9 [employer] HOLDING QUANTTATI VE COLONY COUNT URINE CULTURE 94466 LAB [facility] BCT 9 [employer] ISOL&PRSM HOLDING HOLDING PTV ID ISOLATE EA URINE CUL BACT [id number] LAB [facility] AEROBIC 9 [employer] ADDL HOLDING HOLDING METHS DEFINITIV E EA ISOL URINLS 32949 A C JENELLE, DIP 9 LEANDRA WHITESIDE DAMASO STICK/TAB PSC LET REAGNT NON-AUTO MICRSCPY SUSCEPTIB 45596 LAB [facility] LTY STDY 9 [employer] ANTIMICRB HOLDING HOLDING IAL MICRO/AGA R DILUTJ DAY CARE S[address] ADULT; ELDER ELDER PER 15 CARE CARE MINUTES DAY CARE S[address] ADULT; ELDER ELDER PER 15 CARE CARE MINUTES DAY CARE S5[address] ADULT; ELDER ELDER PER 15 CARE CARE MINUTES DAY CARE S[address] ADULT; ELDER ELDER PER 15 CARE CARE MINUTES DAY CARE S[address] ADULT; ELDER ELDER PER 15 CARE CARE MINUTES DAY CARE S[address] ADULT; ELDER ELDER PER 15 CARE CARE MINUTES DAY CARE S[address] ADULT; ELDER ELDER PER 15 CARE CARE MINUTES DAY CARE S[address] ADULT; ELDER ELDER PER 15 CARE CARE MINUTES INTERMIT A4351 [facility]AR URIN [facility]; E CENTERS E CENTERS STRAIGHT TIP W/WO COAT EA DAY CARE S[address] ADULT; ELDER ELDER PER 15 CARE CARE MINUTES DAY CARE S5[address] ADULT; ELDER ELDER PER 15 CARE CARE MINUTES DAY CARE S[address] ADULT; ELDER ELDER PER 15 CARE CARE MINUTES DAY CARE S[address] ADULT; ELDER ELDER PER 15 CARE CARE MINUTES DAY CARE S5100 [employer] [address] [place] [address] ADULT; ELDER ELDER PER 15 CARE CARE MINUTES DAY CARE S5100 [employer] [facility] [address] [place] [address] ADULT; ELDER ELDER PER 15 CARE CARE MINUTES DAY CARE S5100 [employer] [facility] [address] [place] [address] ADULT; ELDER ELDER PER 15 CARE CARE MINUTES ADLT SZD [id number] [facility] 9 HOME HOME [facility] PROD AGENCY AGENCY UNDWEAR XTRA LG EA DAY CARE S5100 [employer] [facility] [address] [place] [address] ADULT; ELDER ELDER PER 15 CARE CARE MINUTES DAY CARE S5100 [facility] [facility] [address] [place] [address] ADULT; ELDER ELDER PER 15 CARE CARE MINUTES DAY CARE S5100 [facility] [address] [place] [address] ADULT; ELDER ELDER PER 15 CARE CARE MINUTES DAY CARE S[address] [facility] [address] [place] [address] ADULT; ELDER ELDER PER 15 CARE CARE MINUTES DAY CARE S[address] [facility] [address] [place] [address] ADULT; ELDER ELDER PER 15 CARE CARE MINUTES DAY CARE S[address] [facility] [address] [place] [address] ADULT; ELDER ELDER PER 15 CARE CARE MINUTES DAY CARE S[address] [facility] [address] [place] [address] ADULT; ELDER ELDER PER 15 CARE CARE MINUTES DAY CARE S[address] [facility] [address] [place] [address] ADULT; ELDER ELDER PER 15 CARE CARE MINUTES DAY CARE S[address] [facility] [address] [place] [address] ADULT; ELDER ELDER PER 15 CARE CARE MINUTES DAY CARE S[address] [facility] [address] [place] [address] ADULT; ELDER ELDER PER 15 CARE CARE MINUTES DAY CARE S[address] [facility] [address] [place] [address] ADULT; ELDER ELDER PER 15 CARE CARE MINUTES DAY CARE S[address] [facility] [address] [place] [address] ADULT; ELDER ELDER PER 15 CARE CARE MINUTES DAY CARE S5100 [facility] [address] [place] [address] ADULT; ELDER ELDER PER 15 CARE CARE MINUTES DAY CARE S5100 [facility] [address] [place] [address] ADULT; ELDER ELDER PER 15 CARE CARE MINUTES DAY CARE S[address] [facility] [address] [place] [address] ADULT; ELDER ELDER PER 15 CARE CARE MINUTES DAY CARE S5100 [facility] RAMANDEEP [address] ADULT; ELDER ELDER PER 15 CARE CARE MINUTES DAY CARE S[address] ADULT; ELDER ELDER PER 15 CARE CARE MINUTES DAY CARE S5100 RAMANDEEP RAMANDEEP [address] ADULT; ELDER ELDER PER 15 CARE CARE MINUTES DAY CARE S[address] ADULT; ELDER ELDER PER 15 CARE CARE MINUTES TRAPEZE E0940 [facility] BAR 9 HOME MED HOME MED FREESTAND EQUIP. EQUIP. [facility] COMPLETE WITH GRAB BAR HOS BED E0260 [facility] TOPETE SEMI-ELEC 9 HOME MED HOME MED W/ANY EQUIP. EQUIP. TYPE SIDE [facility] RAIL W/MATTRSS DAY CARE S[address] ADULT; ELDER ELDER PER 15 CARE CARE MINUTES DAY CARE S5[address] ADULT; ELDER ELDER PER 15 CARE CARE MINUTES DAY CARE S5[address] ADULT; ELDER ELDER PER 15 CARE CARE MINUTES DAY CARE S5[address] ADULT; ELDER ELDER PER 15 CARE CARE MINUTES DAY CARE S[address] ADULT; ELDER ELDER PER 15 CARE CARE MINUTES DAY CARE S5[address] ADULT; ELDER ELDER PER 15 CARE CARE MINUTES PROTHROMB 89906 Mary HANDY IN TIME 9 LEANDRA Messer PSC BASIC 76522 [facility] METABOLIC 9 AMERIC AMERIC PANEL HOLDING HOLDING CALCIUM TOTAL COLLECTIO 16586 Mary HANDY N VENOUS 9 LEANDRA Messer BLOOD PSC VENIPUNCT URE DRUG 71086 [facility] ASSAY 9 AMERIC AMERIC VALPROIC HOLDING HOLDING DIPROPYLA CETIC ACID TOTAL ADLT SZD T4528 [facility] 9 HOME HOME INCONT HEALTH HEALTH PROD AGENCY AGENCY UNDWEAR XTRA LG EA DAY CARE S[address] ADULT; ELDER ELDER PER 15 CARE CARE MINUTES DAY CARE S5[address] ADULT; ELDER ELDER PER 15 CARE CARE MINUTES DAY CARE S5[address] ADULT; ELDER ELDER PER 15 CARE CARE MINUTES DAY CARE S5[address] ADULT; ELDER ELDER PER 15 CARE CARE MINUTES URINLS 44367 A Ayde MOBLEY, A DIP 9 LEANDRA WHITESIDE C STICK/TAB PSC LET REAGNT NON-AUTO MICRSCPY INCONTINE T4541 [facility] NCE 9 HOME HOME PRODUCT HEALTH HEALTH DISPOSABL AGENCY AGENCY E UNDPAD LARGE EA DAY CARE S[address] ADULT; ELDER ELDER PER 15 CARE CARE MINUTES DAY CARE S5[address] ADULT; ELDER ELDER PER 15 CARE CARE MINUTES DAY CARE S5[address] ADULT; ELDER ELDER PER 15 CARE CARE MINUTES DAY CARE S5[address] ADULT; ELDER ELDER PER 15 CARE CARE MINUTES TRAPEZE E0940 Y[facility]LYN SCHROEDER 9 HOME MED HOME MED FREESTAND EQUIP. EQUIP. ING [facility] COMPLETE WITH GRAB [facility] HOS BED E0260 Y[facility] TOPETE SEMI-ELEC 9 HOME MED HOME MED W/ANY EQUIP. EQUIP. TYPE SIDE [facility] RAIL W/MATTRSS DAY CARE S[address] ADULT; ELDER ELDER PER 15 CARE CARE MINUTES DAY CARE S5[address] ADULT; ELDER ELDER PER 15 CARE CARE MINUTES DAY CARE S5[address] ADULT; ELDER ELDER PER 15 CARE CARE MINUTES DAY CARE S5[address] ADULT; ELDER ELDER PER 15 CARE CARE MINUTES DAY CARE S5[address] ADULT; ELDER ELDER PER 15 CARE CARE MINUTES DAY CARE S5[address] ADULT; ELDER ELDER PER 15 CARE CARE MINUTES DAY CARE S5[address] ADULT; ELDER ELDER PER 15 CARE CARE MINUTES DAY CARE S5[address] ADULT; ELDER ELDER PER 15 CARE CARE MINUTES DAY CARE S5[address] ADULT; ELDER ELDER PER 15 CARE CARE MINUTES DAY CARE S5[address] ADULT; ELDER ELDER PER 15 CARE CARE MINUTES DAY CARE S5[address] ADULT; ELDER ELDER PER 15 CARE CARE MINUTES CULTURE 21865 [facility] BCT 9 AMERIC AMERIC ISOL&PRSM HOLDING HOLDING PTV ID ISOLATE EA URINE CUL BACT 96400 [facility] AEROBIC 9 AMERIC AMERIC ADDL HOLDING HOLDING METHS DEFINITIV E EA ISOL CULTURE 84235 [facility] BACTERIAL 9 AMERIC AMERIC HOLDING HOLDING QUANTTATI VE COLONY COUNT URINE SUSCEPTIB 82523 [facility] LTY STDY 9 AMERIC AMERIC ANTIMICRB HOLDING HOLDING IAL MICRO/AGA R DILUTJ URINLS 66282 A Mary SMITH DIP 9 LEANDRA WHITESIDE C STICK/TAB PSC LET REAGNT NON-AUTO MICRSCPY DAY CARE S5[address] ADULT; ELDER ELDER PER 15 CARE CARE MINUTES DAY CARE S5[address] ADULT; ELDER ELDER PER 15 CARE CARE MINUTES DAY CARE S5[address] ADULT; ELDER ELDER PER 15 CARE CARE MINUTES DAY CARE S5[address] ADULT; ELDER ELDER PER 15 CARE CARE MINUTES CERVICAL L0172 PROSTHETI PROSTHETI COLLAR 9 C&ORTHOTI C&ORTHOTI SEMI-RIGI C C D FOAM ASSOCIATE ASSOCIATE TWO 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 [facility]. [facility] COMPLETE WITH [facility] BED E0260 Y[facility] TOPETE SEMI-ELEC 9 HOME MED HOME MED W/ANY EQUIP. EQUIP. TYPE SIDE [facility] RAIL W/MATTRSS ADLT SZD T4528 [facility] 9 HOME HOME INCONT HEALTH HEALTH PROD AGENCY AGENCY EMIL XTRA LG EA DAY CARE S[address] ADULT; ELDER ELDER PER 15 CARE CARE MINUTES DAY CARE S5[address] ADULT; ELDER ELDER PER 15 CARE CARE MINUTES DAY CARE S5[address] ADULT; ELDER ELDER PER 15 CARE CARE MINUTES DAY CARE S5[address] ADULT; ELDER ELDER PER 15 CARE CARE MINUTES DAY CARE S5[address] ADULT; ELDER ELDER PER 15 CARE CARE MINUTES URINLS 53787 A Ayde MOBLEY, A DIP 9 LEANDRA Messer STICK/TAB PSC LET REAGNT NON-AUTO MICRSCPY INTERMIT A4351 [facility] URIN 9 [facility]; E CENTERS E CENTERS STRAIGHT TIP W/WO COAT EA DAY CARE S5[address] ADULT; ELDER ELDER PER 15 CARE CARE MINUTES DAY CARE S5[address] ADULT; ELDER ELDER PER 15 CARE CARE MINUTES DAY CARE S5[address] ADULT; ELDER ELDER PER 15 CARE CARE MINUTES DAY CARE S5[address] ADULT; ELDER ELDER PER 15 CARE CARE MINUTES DAY CARE S5[address] ADULT; ELDER ELDER PER 15 CARE CARE MINUTES DAY CARE S5[address] ADULT; ELDER ELDER PER 15 CARE CARE MINUTES DAY CARE S5[address] ADULT; ELDER ELDER PER 15 CARE CARE MINUTES URINLS 02033 A C MOBLEY, A DIP 9 LEANDRA Messer STICK/TAB PSC LET REAGNT NON-AUTO MICRSCPY CULTURE 38363 LAB [facility] LAB [facility] BCT 9 AMERIC AMERIC ISOL&PRSM HOLDING HOLDING PTV ID ISOLATE EA URINE CULTURE 26241 LAB [facility] BACTERIAL 9 AMERIC AMERIC HOLDING HOLDING QUANTTATI VE COLONY COUNT URINE CUL BACT 74810 [facility] AEROBIC 9 AMERIC AMERIC ADDL HOLDING HOLDING METHS DEFINITIV E EA ISOL SUSCEPTIB 41251 LAB [facility] LTY STDY 9 AMERIC AMERIC ANTIMICRB HOLDING HOLDING IAL MICRO/AGA R DILUTJ TRAPEZE E0940 [facility] Y[facility] BAR 9 HOME MED HOME MED FREESTAND EQUIP. EQUIP. ING [facility] COMPLETE WITH GRAB BAR HOS BED E0260 Y[facility]N YOSELYN SEMI-ELEC 9 HOME MED HOME MED W/ANY EQUIP. EQUIP. TYPE SIDE [facility] RAIL W/MATTRSS DAY CARE S[address] ADULT; ELDER ELDER PER 15 CARE CARE MINUTES DAY CARE S5[address] ADULT; ELDER ELDER PER 15 CARE CARE MINUTES DAY CARE S5[address] ADULT; ELDER ELDER PER 15 CARE CARE MINUTES DAY CARE S5[address] ADULT; ELDER ELDER PER 15 CARE CARE MINUTES DAY CARE S5[address] ADULT; ELDER ELDER PER 15 CARE CARE MINUTES DAY CARE S5[address] ADULT; ELDER ELDER PER 15 CARE CARE MINUTES DAY CARE S5[address] ADULT; ELDER ELDER PER 15 CARE CARE MINUTES INTERMIT A4351 [facility] SENA 9 [facility] CATH; E CENTERS E CENTERS STRAIGHT TIP W/WO COAT EA DAY CARE S5[address] ADULT; ELDER ELDER PER 15 CARE CARE MINUTES DAY CARE S5[address] ADULT; ELDER ELDER PER 15 CARE CARE MINUTES ADLT SZD T4528 [facility] 9 HOME HOME INCONT HEALTH HEALTH PROD AGENCY AGENCY UNDWEAR XTRA LG EA DAY CARE S[address] ADULT; ELDER ELDER PER 15 CARE [...] SUPPLIES SUPPLIES OF 100 DAY CARE S5[address] ADULT; ELDER ELDER PER 15 CARE CARE MINUTES DAY CARE S5[address] ADULT; ELDER ELDER PER 15 CARE CARE MINUTES DAY CARE S5[address] ADULT; ELDER ELDER PER 15 CARE CARE MINUTES SUSCEPTIB 44931 LAB [facility] LTY STDY 8 AMERIC AMERIC ANTIMICRB HOLDING HOLDING IAL MICRO/AGA R DILUTJ DAY CARE S5[address] ADULT; ELDER ELDER PER 15 CARE CARE MINUTES CUL BACT 95596 [facility] AEROBIC 8 AMERIC AMERIC ADDL HOLDING HOLDING METHS DEFINITIV E EA ISOL CULTURE 38755 LAB AN[facility] LAB AN[facility] BCT 8 AMERIC AMERIC ISOL&PRSM HOLDING HOLDING PTV ID ISOLATE EA URINE CULTURE 99896 LAB AN[facility] AN[facility] BACTERIAL 8 AMERIC AMERIC HOLDING HOLDING QUANTTATI VE COLONY COUNT URINE TRAPEZE E0940 YOSELYN SCHROEDER 8 HOME MED HOME MED FREESTAND EQUIP. EQUIP. [facility] COMPLETE WITH [facility] DAY CARE S[address] ADULT; ELDER ELDER PER 15 CARE CARE MINUTES HOS BED E0260 YOSELYN TOPETE SEMI-ELEC 8 HOME MED HOME MED W/ANY EQUIP. EQUIP. TYPE SIDE [facility] RAIL W/MATTRSS DAY CARE S[address] ADULT; ELDER ELDER PER 15 CARE CARE MINUTES DAY CARE S5[address] ADULT; ELDER ELDER PER 15 CARE CARE MINUTES DAY CARE S5[address] ADULT; ELDER ELDER PER 15 CARE CARE MINUTES DAY CARE S5[address] ADULT; ELDER ELDER PER 15 CARE CARE MINUTES DAY CARE S5[address] ADULT; ELDER ELDER PER 15 CARE CARE MINUTES DAY CARE S5[address] ADULT; ELDER ELDER PER 15 CARE CARE MINUTES DAY CARE S5[address] ADULT; ELDER ELDER PER 15 CARE CARE MINUTES DAY CARE S5[address] ADULT; ELDER ELDER PER 15 CARE CARE MINUTES DAY CARE S5[address] ADULT; ELDER ELDER PER 15 CARE CARE MINUTES INTERMIT A4351 [facility]; E CENTERS E CENTERS STRAIGHT TIP W/WO COAT EA DAY CARE S5[address] ADULT; ELDER ELDER PER 15 CARE CARE MINUTES DAY CARE S5[address] ADULT; ELDER ELDER PER 15 CARE CARE MINUTES DAY CARE S5[address] ADULT; ELDER ELDER PER 15 CARE CARE MINUTES DAY CARE S5[address] ADULT; ELDER ELDER PER 15 CARE CARE MINUTES DAY CARE S5[address] ADULT; ELDER ELDER PER 15 CARE CARE MINUTES TRAPEZE E0940 YOSELYN SCHROEDER 8 HOME MED HOME MED FREESTAND EQUIP. EQUIP. ING [facility] BED E0260 YOSELYN TOPETE SEMI-ELEC 8 HOME MED HOME MED W/ANY EQUIP. EQUIP. TYPE SIDE [facility] RAIL W/MATTRSS DAY CARE S[address] ADULT; ELDER ELDER PER 15 CARE CARE MINUTES DAY CARE S5[address] ADULT; ELDER ELDER PER 15 CARE CARE MINUTES DAY CARE S5[address] ADULT; ELDER ELDER PER 15 CARE CARE MINUTES DAY CARE S5[address] ADULT; ELDER ELDER PER 15 CARE CARE MINUTES DAY CARE S5[address] ADULT; ELDER ELDER PER 15 CARE CARE MINUTES ADLT SZD T4528 [facility] 8 HOME HOME [facility] PROD AGENCY AGENCY UNDWEAR XTRA LG EA DAY CARE S5[address] ADULT; ELDER ELDER PER 15 CARE CARE MINUTES DAY CARE S5100 [address] ADULT; ELDER ELDER PER 15 CARE CARE MINUTES DAY CARE S5100 [address] ADULT; ELDER ELDER PER 15 CARE CARE MINUTES DAY CARE S5100 [address] ADULT; ELDER ELDER PER 15 CARE CARE MINUTES DAY CARE S5100 [address] ADULT; ELDER ELDER PER 15 CARE CARE MINUTES URINLS 46004 Mary HANDY 8 LEANDRA WHITESIDE C STICK/TAB PSC LET REAGNT NON-AUTO MICRSCPY DAY CARE S5[address] ADULT; ELDER ELDER PER 15 CARE CARE MINUTES DAY CARE S5100 [address] ADULT; ELDER ELDER PER 15 CARE CARE MINUTES IIV3 88558 [facility] VACCINE 8 [facility] SPLIT CENTER CENTER VIRUS 0.5 ML DOSAGE IM USE ADMINISTR G0008 [facility] ATION OF 8 [facility] INFLUENZA CENTER CENTER VIRUS VACCINE DAY CARE S5[address] ADULT; ELDER ELDER PER 15 CARE CARE MINUTES DAY CARE S5100 [address] ADULT; ELDER ELDER PER 15 CARE CARE MINUTES DAY CARE S5100 [address] ADULT; ELDER ELDER PER 15 CARE CARE MINUTES DAY CARE S5100 [address] ADULT; ELDER ELDER PER 15 CARE CARE MINUTES DAY CARE S5100 [address] ADULT; ELDER ELDER PER 15 CARE CARE MINUTES DAY CARE S5[address] ADULT; ELDER ELDER PER 15 CARE CARE MINUTES SUSCEPTIB 46710 LAB [facility] LTY STDY 8 AMERIC AMERIC ANTIMICRB HOLDING HOLDING IAL MICRO/AGA R DILUTJ TRAPEZE E0940 [facility] Y[facility] BAR 8 HOME MED HOME MED FREESTAND EQUIP. EQUIP. [facility] COMPLETE WITH [facility] BAR CULTURE 69023 LAB AN[facility] BACTERIAL 8 AMERIC AMERIC HOLDING HOLDING QUANTTATI VE COLONY COUNT URINE CULTURE 67330 LAB AN[facility] LAB AN[facility] BCT 8 AMERIC AMERIC ISOL&PRSM HOLDING HOLDING PTV ID ISOLATE EA URINE CUL BACT 25241 LAB [facility] AEROBIC 8 AMERIC AMERIC ADDL HOLDING HOLDING METHS DEFINITIV E EA ISOL HOS BED E0260 [facility] Y[facility] SEMI-ELEC 8 HOME MED HOME MED W/ANY EQUIP. EQUIP. TYPE SIDE [facility] RAIL W/MATTRSS INTERMIT A4351 [facility]AR URIN 8 [facility] CATH; E CENTERS E CENTERS STRAIGHT TIP W/WO COAT EA DAY CARE S5100 [facility] [address] [place] [address] ADULT; ELDER ELDER PER 15 CARE CARE MINUTES DAY CARE S5100 [address] ADULT; ELDER ELDER PER 15 CARE CARE MINUTES DAY CARE S5100 [address] ADULT; ELDER ELDER PER 15 CARE CARE MINUTES DAY CARE S5100 [address] ADULT; ELDER ELDER PER 15 CARE CARE MINUTES DAY CARE S5[address] ADULT; ELDER ELDER PER 15 CARE CARE MINUTES DAY CARE S5[address] ADULT; ELDER ELDER PER 15 CARE CARE MINUTES DAY CARE S5100 [address] ADULT; ELDER ELDER PER 15 CARE CARE MINUTES DAY CARE S5[address] ADULT; ELDER ELDER PER 15 CARE CARE MINUTES DAY CARE S5[address] ADULT; ELDER ELDER PER 15 CARE CARE MINUTES ADLT SZD T4528 [facility] 8 HOME HOME [facility] PROD AGENCY AGENCY UNDWEAR XTRA LG EA DAY CARE S5[address] ADULT; ELDER ELDER PER 15 CARE CARE MINUTES LANCETS A4259 M E D M E D PER BOX 8 SUPPLIES SUPPLIES OF 100 NORMAL 09-26-200 A4256 M E D M E D LOW AND 8 SUPPLIES SUPPLIES HIGH CALIBRATO R SOLUTION/ CHIPS BLD GLU A4253 M E D M E D TEST/REAG 8 SUPPLIES SUPPLIES T STRIPS HOME BLD GLU MON-50 SPRING-PO A4258 M E D M E D WERED 8 SUPPLIES SUPPLIES DEVICE FOR LANCET EACH REPL CRUZ A4235 M E D M E D LITHIUM 8 SUPPLIES SUPPLIES MED NECES SHERYL BG MON OWN PT EA DAY CARE S5[address] ADULT; ELDER ELDER PER 15 CARE CARE MINUTES DAY CARE S5100 [address] ADULT; ELDER ELDER PER 15 CARE CARE MINUTES DAY CARE S5100 [address] ADULT; ELDER ELDER PER 15 CARE CARE MINUTES DAY CARE S5100 [address] ADULT; ELDER ELDER PER 15 CARE CARE MINUTES DAY CARE S5100 [address] ADULT; ELDER ELDER PER 15 CARE CARE MINUTES DAY CARE S5[address] ADULT; ELDER ELDER PER 15 CARE CARE MINUTES DAY CARE S5100 [address] ADULT; ELDER ELDER PER 15 CARE CARE MINUTES DAY CARE S5100 [address] ADULT; ELDER ELDER PER 15 CARE CARE MINUTES DAY CARE S5[address] ADULT; ELDER ELDER PER 15 CARE CARE MINUTES DAY CARE S5[address] ADULT; ELDER ELDER PER 15 CARE CARE MINUTES DAY CARE S5[address] ADULT; ELDER ELDER PER 15 CARE CARE MINUTES DAY CARE S5100 [address] ADULT; ELDER ELDER PER 15 CARE CARE MINUTES DAY CARE S5100 [address] ADULT; ELDER ELDER PER 15 CARE CARE MINUTES DAY CARE S5100 [address] ADULT; ELDER ELDER PER 15 CARE CARE MINUTES DAY CARE S5100 [address] ADULT; ELDER ELDER PER 15 CARE CARE MINUTES DAY CARE S5100 [address] ADULT; ELDER ELDER PER 15 CARE CARE MINUTES DAY CARE S5100 [address] ADULT; ELDER ELDER PER 15 CARE CARE MINUTES DAY CARE S5100 [address] ADULT; ELDER ELDER PER 15 CARE CARE MINUTES DAY CARE S5100 [address] ADULT; ELDER ELDER PER 15 CARE CARE MINUTES DAY CARE S5100 [address] ADULT; ELDER ELDER PER 15 CARE CARE MINUTES DAY CARE S5100 [address] ADULT; ELDER ELDER PER 15 CARE CARE MINUTES OPHTH 88945 ROBER, ROBER, MEDICAL 8 KIT A KIT A XM&JOELLE COMPRE NEW PT 1/> VST DAY CARE S5[address] ADULT; ELDER ELDER PER 15 CARE CARE MINUTES TRAPEZE E0940 YOSELYN SCHROEDER 8 HOME MED HOME MED FREESTAND EQUIP. EQUIP. ING [facility] COMPLETE WITH [facility] HOS BED E0260 YOSELYN TOPETE SEMI-ELEC 8 HOME MED HOME MED W/ANY EQUIP. EQUIP. TYPE SIDE [facility] RAIL W/MATTRSS DAY CARE S[address] ADULT; ELDER ELDER PER 15 CARE CARE MINUTES DAY CARE S5100 [address] ADULT; ELDER ELDER PER 15 CARE CARE MINUTES DAY CARE S5100 [address] ADULT; ELDER ELDER PER 15 CARE CARE MINUTES DAY CARE S5100 [address] ADULT; ELDER ELDER PER 15 CARE CARE MINUTES DAY CARE S5100 [address] ADULT; ELDER ELDER PER 15 CARE CARE MINUTES DAY CARE S5100 [address] ADULT; ELDER ELDER PER 15 CARE CARE MINUTES DAY CARE S5100 [address] ADULT; ELDER ELDER PER 15 CARE CARE MINUTES INTERMIT A4351 [facility] SENA 8 [facility] CATH; E CENTERS E CENTERS STRAIGHT TIP W/WO COAT EA DAY CARE S[address] ADULT; ELDER ELDER PER 15 CARE CARE MINUTES DAY CARE S5[address] ADULT; ELDER ELDER PER 15 CARE CARE MINUTES DAY CARE S5[address] ADULT; ELDER ELDER PER 15 CARE CARE MINUTES DAY CARE S5100 [address] ADULT; ELDER ELDER PER 15 CARE CARE MINUTES DAY CARE S5100 [address] ADULT; ELDER ELDER PER 15 CARE CARE MINUTES DAY CARE S5[address] ADULT; ELDER ELDER PER 15 CARE CARE MINUTES DAY CARE S5[address] ADULT; ELDER ELDER PER 15 CARE CARE MINUTES INCONTINE T4541 [facility] 8 HOME HOME PRODUCT HEALTH HEALTH DISPOSABL AGENCY AGENCY E UNDPAD LARGE EA ADLT SZD T4528 [facility] 8 HOME HOME INCONT HEALTH HEALTH PROD AGENCY AGENCY UNDWEAR XTRA LG EA DAY CARE S[address] [address] ADULT; ELDER ELDER PER 15 CARE CARE MINUTES DAY CARE S5[address] ADULT; ELDER ELDER PER 15 CARE CARE MINUTES DAY CARE S5[address] ADULT; ELDER ELDER PER 15 CARE CARE MINUTES TRAPEZE E0940 YOSELYN SCHROEDER 8 HOME MED HOME MED FREESTAND EQUIP. EQUIP. [facility]G [facility] COMPLETE WITH ART [facility] HOS BED E0260 Y[facility]N TOPETE SEMI-ELEC 8 HOME MED HOME MED W/ANY EQUIP. EQUIP. TYPE SIDE [facility] RAIL W/MATTRSS DAY CARE S[address] ADULT; ELDER ELDER PER 15 CARE CARE MINUTES DAY CARE S5[address] ADULT; ELDER ELDER PER 15 CARE CARE MINUTES DAY CARE S5[address] ADULT; ELDER ELDER PER 15 CARE CARE MINUTES 3D [id number] [place] [facility] 8 MEDICAL YONY Patrick IMAGING W/INTERP& ASSOCIATE [place] [address] RAMANDEEP SABILLON [facility]OPONIN 8 [facility] QUANTITAT INC INC TAYLER BLOOD 09514 RAMANDEEP SABILLON COUNT 8 [facility] COMPLETE INC INC AUTO&AUTO DIFRNTL WBC GROUND A0425 [facility] 8 AMBULANCE AMBULANCE PER SERVICE SERVICE STATUTE MILE DRUG 02227 RAMANDEEP SABILLON ASSAY 8 [facility] VALPROIC INC INC DIPROPYLA CETIC ACID TOTAL ECG 28186 ARMANDEEP STODDARD, ROUTINE 8 [facility] W/LEAST PROF SERV 12 LDS [place] [address] JAYLENE BURRIS, HEAD/BRAI 8 MEDICAL YONY Patrick N W/O IMAGING CONTRAST ASSOCIATE MATERIAL S [place] NFS 59856 RAMANDEEP SABILLON THER 8 [facility] PROPH/DX INC INC 1ST >1 HR PROTHROMB 41154 RAMANDEEP SABILLON IN TIME 8 [facility] INC INC THROMBOPL 85236 RAMANDEEP SABILLON ASTIN 8 [facility] TIME INC INC PARTIAL PLASMA/WH OLE BLOOD ECG 16017 RAMANDEEP SABILLON ROUTINE 8 [facility] ECG INC INC W/LEAST 12 LDS TRCG ONLY W/O I&R CREATINE 73438 RAMANDEEP SABILLON KINASE 8 [facility] TOTAL INC INC COMPREHEN 55304 RAMANDEEP SABILLON SIVE 8 [facility] METABOLIC INC INC PANEL CREATINE 81570 RAMANDEEP SABILLON [place] MB 8 [facility] FRACTION INC INC ONLY AMB A0427 [facility] SERVICE 8 AMBULANCE AMBULANCE ALS SERVICE SERVICE EMERGENCY TRANSPORT LEVEL 1 DAY CARE S5100 RAMANDEEP SABILLON SERVICES [address] [place] [address] ADULT; ELDER ELDER PER 15 CARE CARE MINUTES DAY CARE S5100 RAMANDEEP SABILLON [facility] [address] [place] [address] ADULT; ELDER ELDER PER 15 CARE CARE MINUTES DAY CARE S5100 [facility]EP SABILL[facility] [address] [place] [address] ADULT; ELDER ELDER PER 15 CARE CARE MINUTES DAY CARE S5100 [facility]AN[facility]EP SABILL[facility] [address] [place] [address] ADULT; ELDER ELDER PER 15 CARE CARE MINUTES BLD GLU A4253 M E D M E D TEST/REAG 8 SUPPLIES SUPPLIES T STRIPS HOME BLD GLU MON-50 DAY CARE S[address] ADULT; ELDER ELDER PER 15 CARE CARE MINUTES DAY CARE S5[address] ADULT; ELDER ELDER PER 15 CARE CARE MINUTES TRAPEZE E0940 [facility] TOPETE BAR 8 HOME MED HOME MED FREESTAND EQUIP. EQUIP. [employer] COMPLETE WITH [facility]ED E0260 YOSELYN TOPETE SEMI-ELEC 8 HOME MED HOME MED W/ANY EQUIP. EQUIP. TYPE SIDE [facility] RAIL W/MATTRSS DAY CARE S[address] ADULT; ELDER ELDER PER 15 CARE CARE MINUTES DAY CARE S[address] ADULT; ELDER ELDER PER 15 CARE CARE MINUTES DAY CARE S[address] ADULT; ELDER ELDER PER 15 CARE CARE MINUTES MEDICAL 54071 [facility] [facility] [address] [place] [address] ASSMT&IVN BANK ACCT TJ INDIV EACH 15 PR DAY CARE S[address] ADULT; ELDER ELDER PER 15 CARE CARE MINUTES DAY CARE S[address] ADULT; ELDER ELDER PER 15 CARE CARE MINUTES ADLT SZD T4528 [facility] 8 HOME HOME INCONT HEALTH HEALTH PROD AGENCY AGENCY UNDWEAR XTRA LG EA DAY CARE S[address] ADULT; ELDER ELDER PER 15 CARE CARE MINUTES DAY CARE S5[address] ADULT; ELDER ELDER PER 15 CARE CARE MINUTES DAY CARE S5[address] ADULT; ELDER ELDER PER 15 CARE CARE MINUTES DAY CARE S[address] ADULT; ELDER ELDER PER 15 CARE CARE MINUTES TRAPEZE E0940 Y[facility]N SCHROEDER 8 HOME MED HOME MED FREESTAND EQUIP. EQUIP. [facility] [employer] COMPLETE WITH [facility] E0260 YOSELYN GUAJARDORELL SEMI-ELEC 8 HOME MED HOME MED W/ANY EQUIP. EQUIP. TYPE [facility] RAIL W/MATTRSS DAY CARE S[address] ADULT; ELDER ELDER PER 15 CARE CARE MINUTES DAY CARE S[address] ADULT; ELDER ELDER PER 15 CARE CARE MINUTES DAY CARE S[address] ADULT; ELDER ELDER PER 15 CARE CARE MINUTES DAY CARE S5[address] ADULT; ELDER ELDER PER 15 CARE CARE MINUTES DAY CARE S[address] ADULT; ELDER ELDER PER 15 CARE CARE MINUTES DAY CARE S[address] ADULT; ELDER ELDER PER 15 CARE CARE MINUTES DAY CARE S5100 84 [address] ADULT; ELDER ELDER PER 15 CARE CARE MINUTES INTERMIT [id number] OUMAR SENA 8 [facility] CATH; E CENTERS E CENTERS STRAIGHT TIP W/WO COAT EA DAY CARE S5100 [address] ADULT; ELDER ELDER PER 15 CARE CARE MINUTES DAY CARE S5100 [address] ADULT; ELDER ELDER PER 15 CARE CARE MINUTES DAY CARE S5100 [address] ADULT; ELDER ELDER PER 15 CARE CARE MINUTES DAY CARE S5100 [address] ADULT; ELDER ELDER PER 15 CARE CARE MINUTES DAY CARE S5100 [address] ADULT; ELDER ELDER PER 15 CARE CARE MINUTES DAY CARE S5100 [address] ADULT; ELDER ELDER PER 15 CARE CARE MINUTES DAY CARE S5100 [address] ADULT; ELDER ELDER PER 15 CARE CARE MINUTES DAY CARE S5100 [address] ADULT; ELDER ELDER PER 15 CARE CARE MINUTES DAY CARE S5100 [address] ADULT; ELDER ELDER PER 15 CARE CARE MINUTES DAY CARE S5100 [address] ADULT; ELDER ELDER PER 15 CARE CARE MINUTES DAY CARE S5100 [address] ADULT; ELDER ELDER PER 15 CARE CARE MINUTES DAY CARE S5100 [address] ADULT; ELDER ELDER PER 15 CARE CARE MINUTES DAY CARE S5100 [address] ADULT; ELDER ELDER PER 15 CARE CARE MINUTES TRAPEZE [id number] YOSELYN SCHROEDER 8 HOME MED HOME MED FREESTAND EQUIP. EQU[facility]. [employer] [facility] COMPLETE WITH [facility] [id number] YOSELYN TOPETE SEMI-ELEC 8 HOME MED HOME MED W/ANY EQUIP. EQUIP. TYPE SIDE [facility] RAIL W/MATTRSS DAY CARE S5[address] ADULT; ELDER ELDER PER 15 CARE CARE MINUTES AIR PRESS [id number] YOSELYN TOPETE PAD 8 HOME MED HOME MED MATTRSS EQUIP. EQUIP. STD [facility] MATTRSS LENGTH&WI DTH DAY CARE S5[address] ADULT; ELDER ELDER PER 15 CARE CARE MINUTES DAY CARE S5100 [address] ADULT; ELDER ELDER PER 15 CARE CARE MINUTES DAY CARE S5100 [address] ADULT; ELDER ELDER PER 15 CARE CARE MINUTES DAY CARE S5100 [address] ADULT; ELDER ELDER PER 15 CARE CARE MINUTES DAY CARE S5100 [address] ADULT; ELDER ELDER PER 15 CARE CARE MINUTES DAY CARE S5100 [address] ADULT; ELDER ELDER PER 15 CARE CARE MINUTES ADLT SZD [id number] [facility] 8 HOME HOME [facility] HEALTH HEALTH PROD AGENCY AGENCY UNDWEAR XTRA LG EA DAY CARE S5100 [address] ADULT; ELDER ELDER PER 15 CARE CARE MINUTES DAY CARE S5100 [address] ADULT; ELDER ELDER PER 15 CARE CARE MINUTES DAY CARE S5100 [address] ADULT; ELDER ELDER PER 15 CARE CARE MINUTES BLD GLU A4253 M E D M E D TEST/REAG 8 SUPPLIES SUPPLIES T STRIPS HOME BLD GLU SAT-50 DAY CARE S5100 [address] ADULT; ELDER ELDER PER 15 CARE CARE MINUTES DAY CARE S5100 [address] ADULT; ELDER ELDER PER 15 CARE CARE MINUTES DAY CARE S5100 [address] ADULT; ELDER ELDER PER 15 CARE CARE MINUTES DAY CARE S5100 [address] ADULT; ELDER ELDER PER 15 CARE CARE MINUTES DAY CARE S5100 [address] ADULT; ELDER ELDER PER 15 CARE CARE MINUTES DAY CARE S5100 [address] ADULT; ELDER ELDER PER 15 CARE CARE MINUTES DAY CARE S5100 [address] ADULT; ELDER ELDER PER 15 CARE CARE MINUTES DAY CARE S5100 [address] ADULT; ELDER ELDER PER 15 CARE CARE MINUTES DAY CARE S5100 [address] ADULT; ELDER ELDER PER 15 CARE CARE MINUTES INTERMIT [id number] OUMAR SENA 8 [facility]; E CENTERS E CENTERS STRAIGHT TIP W/WO COAT EA DAY CARE S5100 [address] ADULT; ELDER ELDER PER 15 CARE CARE MINUTES DAY CARE S5100 [address] ADULT; ELDER ELDER PER 15 CARE CARE MINUTES DAY CARE S5100 [address] ADULT; ELDER ELDER PER 15 CARE CARE MINUTES DAY CARE S5100 [address] ADULT; ELDER ELDER PER 15 CARE CARE MINUTES DAY CARE S5100 [address] ADULT; ELDER ELDER PER 15 CARE CARE MINUTES ADLT SZD [id number] [facility] 8 HOME HOME [facility]CONT HEALTH HEALTH PROD AGENCY AGENCY UNDWEAR XTRA LG EA DAY CARE S5100 [address] ADULT; ELDER ELDER PER 15 CARE CARE MINUTES DAY CARE S5100 [address] ADULT; ELDER ELDER PER 15 CARE CARE MINUTES DAY CARE S5100 [facility] [address] [place] [address] ADULT; ELDER ELDER PER 15 CARE CARE MINUTES DAY CARE S5100 [facility] [address] [place] [address] ADULT; ELDER ELDER PER 15 CARE CARE MINUTES DAY CARE S5100 [facility] [address] [place] [address] ADULT; ELDER ELDER PER 15 CARE CARE MINUTES DAY CARE S5100 [facility] [address] [place] [address] ADULT; ELDER ELDER PER 15 CARE CARE MINUTES DAY CARE S5100 [facility] [address] [place] [address] ADULT; ELDER ELDER PER 15 CARE CARE MINUTES DAY CARE S5100 [facility] [address] [place] [address] ADULT; ELDER ELDER PER 15 CARE CARE MINUTES DAY CARE S5100 [facility] [address] [place] [address] ADULT; ELDER ELDER PER 15 CARE CARE MINUTES DAY CARE S5100 [facility] [address] ADULT; ELDER ELDER PER 15 CARE CARE MINUTES DAY CARE S5100 [facility] [address] ADULT; ELDER ELDER PER 15 CARE CARE MINUTES DAY CARE S5100 [facility] [address] ADULT; ELDER ELDER PER 15 CARE CARE MINUTES DAY CARE S5100 [facility] [address] ADULT; ELDER ELDER PER 15 CARE CARE MINUTES DAY CARE S5[address] ADULT; ELDER ELDER PER 15 CARE CARE MINUTES DAY CARE S5100 [facility] [address] ADULT; ELDER ELDER PER 15 CARE CARE MINUTES DAY CARE S5100 [facility] [address] ADULT; ELDER ELDER PER 15 CARE CARE MINUTES DAY CARE S5100 [facility] [address] [place] [address] ADULT; ELDER ELDER PER 15 CARE CARE MINUTES DAY CARE S5100 [facility] [address] [place] [address] ADULT; ELDER ELDER PER 15 CARE CARE MINUTES DAY CARE S5100 [facility] [address] [place] [address] ADULT; ELDER ELDER PER 15 CARE CARE MINUTES INCONTINE T4541 [facility] 8 HOME HOME [facility] HEALTH DISPOSABL AGENCY AGENCY E UNDPAD LARGE EA ADLT SZD T4528 [facility] 8 HOME HOME INCONT HEALTH HEALTH PROD AGENCY AGENCY UNDWEAR XTRA LG EA DAY CARE S5100 [facility] 8 [facility] ADULT; ELDER ELDER PER 15 CARE CARE MINUTES DAY CARE S5100 [facility] 8 [facility] ADULT; ELDER ELDER PER 15 CARE CARE MINUTES Encounters Encounter Start End Date Code Location Performer Type Date Emergency JORGE Vázquez (ER) 3 15:31 3 17:43 [facility] T [facility] - 0 0 [facility], 0 0 DIST OTHER HEALTH DEPT AERODYNAMICS PROFESSOR HOME [facility], 0 0 DIST OTHER HEALTH DEPT AERODYNAMICS PROFESSOR HOME [facility], 0 0 HOME OUTPATIEN HEALTH T AGENCY [facility], 0 0 DIST OTHER HEALTH DEPT AERODYNAMICS PROFESSOR OFFICE 28018 EHSAN GALARZAEN 9 9 LEANDRA Hernandez T VISIT PSC 15 MINUTES OFFICE 14823 TERRY MCGREGOR 9 9 LEANDRA PETIT T VISIT 5 PSC MINUTES HOME [facility], 9 9 DIST OTHER HEALTH DEPT AERODYNAMICS PROFESSOR HOME [facility], 9 9 HOME OUTPATIEN HEALTH T AGENCY OFFICE 18412 TIM SCHULTE OUTTATIEN 9 9 LYNNE MUNGUIA T VISIT SERV 15 FOUNDATIO MINUTES HOME [facility], 9 9 DIST OTHER HEALTH DEPT AERODYNAMICS PROFESSOR HOME [facility], 9 9 HOME OUTPATIEN HEALTH T [facility] - 9 9 [facility] OUTPAT[facility]EN INC T HOME [facility], 9 9 DIST OTHER HEALTH DEPT AERODYNAMICS PROFESSOR OFFICE 00163 TIM SCHULTE, CONSULTAT 9 9 LYNNE MUNGUIA ION SERV NEW/ESTAB FOUNDATIO PATIENT 60 MIN HOME [facility], 9 9 DIST OTHER HEALTH DEPT AERODYNAMICS PROFESSOR OFFICE 52482 Mary HANDY OUTPATIEN 9 9 LEANDRA Messer T VISIT PSC 15 MINUTES OFFICE 96399 Mary HANDY OUTPATIEN 9 9 LEANDRA Messer T VISIT PSC 15 MINUTES HOME [facility], 9 9 DIST OTHER HEALTH DEPT AERODYNAMICS PROFESSOR HOME [facility], 9 9 HOME OUTPATIEN HEALTH T [facility] - 9 9 [facility] OUTPATIEN [facility] T HOME [facility], 9 9 DIST OTHER HEALTH DEPT AERODYNAMICS PROFESSOR HOME [facility], 9 9 DIST OTHER HEALTH DEPT AERODYNAMICS PROFESSOR HOME [facility], 9 9 HOME OUTPATIEN HEALTH T AGENCY OFFICE 69197 TERRY GALARZA 9 9 LEANDRA Hernandez T VISIT PSC 15 MINUTES HOME [facility], 9 9 DIST OTHER HEALTH DEPT AERODYNAMICS PROFESSOR OFFICE 21376 TERRY MCGREGOR 9 9 LEANDRA PETIT T VISIT 5 PSC MINUTES OFFICE 54519 TERRY GALARZA 9 9 LEANDRA Hernandez T VISIT PSC 15 MINUTES HOME [facility], 9 9 DIST OTHER HEALTH DEPT AERODYNAMICS PROFESSOR HOME [facility], 9 9 HOME OUTPATIEN HEALTH T AGENCY OFFICE 67981 [facility] OUT[facility]IEN 9 9 HEALTH CO HEALTH T VISIT [facility] 15 BANK ACCT MINUTES HOME [facility], 9 9 DIST OTHER HEALTH DEPT AERODYNAMICS PROFESSOR HOME [facility], 9 9 DIST OTHER HEALTH DEPT AERODYNAMICS PROFESSOR OFFICE 43447 Mary HANDY OUTPATIEN 9 9 LEANDRA Rhodes VISIT PSC 15 MINUTES HOME [facility] 9 9 HOME OUTPATIEN HEALTH T AGENCY HOME [facility], 9 9 DIST OTHER HEALTH DEPT AERODYNAMICS PROFESSOR OFFICE 69698 Mary HANDY OUTPATIEN 9 9 LEANDRA Rhodes VISIT 5 PSC MINUTES HOME [facility], 9 9 HOME OUTPATIEN HEALTH T AGENCY HOME [facility], 9 9 DIST OTHER HEALTH DEPT AERODYNAMICS PROFESSOR OFFICE 42694 Mary HANDY OUTPATIEN 9 9 LEANDRA Rhodes VISIT 5 PSC MINUTES HOME [facility], 9 9 DIST OTHER HEALTH DEPT AERODYNAMICS PROFESSOR HOME [facility], 9 9 HOME OUTPATIEN HEALTH T AGENCY OFFICE 28555 Mary HANDY OUTPATIEN 9 9 LEANDRA Rhodes VISIT 5 PSC MINUTES OFFICE 29130 Mary HANDY OUTPATIEN 9 9 LEANDRA Rhodes VISIT PSC 15 MINUTES HOME [facility], 9 9 DIST OTHER HEALTH DEPT AERODYNAMICS PROFESSOR OFFICE 52311 Mary HANDY OUTPATIEN 9 9 LEANDRA Rhodes VISIT 5 PSC MINUTES HOME [facility], 9 9 DIST OTHER HEALTH DEPT AERODYNAMICS PROFESSOR HOME [facility], 9 9 HOME OUTPATIEN HEALTH T AGENCY [facility], 8 8 DIST OTHER HEALTH DEPT AERODYNAMICS PROFESSOR HOME [facility], 8 8 HOME OUTPATIEN HEALTH T AGENCY [facility], 8 8 DIST OTHER HEALTH DEPT AERODYNAMICS PROFESSOR OFFICE 42699 Mary HANDY OUTPATIEN 8 8 LEANDRA Messer T VISIT 5 PSC MINUTES HOME [facility], 8 8 DIST OTHER HEALTH DEPT AERODYNAMICS PROFESSOR HOME [facility], 8 8 HOME OUTPATIEN HEALTH T AGENCY [facility], 8 8 DIST OTHER HEALTH DEPT AERODYNAMICS PROFESSOR HOME [facility], 8 8 DIST OTHER HEALTH DEPT AERODYNAMICS PROFESSOR HOME [facility], 8 8 HOME OUTPATIEN HEALTH T AGENCY OFFICE 40216 Mary HANDY OUTPATIJOSE [facility] 8 8 LEANDRA Messer T VISIT PSC 15 MINUTES HOSPITAL [facility] - 8 8 [facility] OUTPATIEN INC T EMERGENCY 87605 [facility] 8 8 [facility] DEPARTMEN INC T VISIT HIGH/URGE NT SEVERITY EMERGENCY 41618 JEEVAN ORTIZ, 8 8 [facility] DEPARTMEN CORPORATI O T VISIT ON MODERATE SEVERITY [facility], 8 8 DIST OTHER HEALTH DEPT AERODYNAMICS PROFESSOR HOME [facility], 8 8 DIST OTHER HEALTH DEPT AERODYNAMICS PROFESSOR OFFICE 26442 Mary HANDY 8 8 LEANDRA Messer T VISIT PSC 15 MINUTES HOME [facility], 8 8 HOME OUTPATIEN HEALTH T AGENCY [facility], 8 8 DIST OTHER HEALTH DEPT AERODYNAMICS PROFESSOR HOME [facility], 8 8 HOME OUTPATIEN HEALTH T AGENCY [facility], 8 8 DIST OTHER HEALTH DEPT AERODYNAMICS PROFESSOR OFFICE 36512 [facility] OUTPATIEN 8 8 HEALTH CO HEALTH T VISIT [facility] 10 BANK ACCT MINUTES HOME [facility] HEALTH, 8 8 DIST OTHER HEALTH DEPT AERODYNAMICS PROFESSOR HOME [facility], 8 8 HOME OUTPATIEN HEALTH T AGENCY OFFICE 56015 [facility] 8 HEALTH IA HEALTH T VISIT [facility] 15 BANK ACCT MINUTES HOME [facility], 8 8 DIST OTHER HEALTH DEPT AERODYNAMICS PROFESSOR HOME [facility] [employer], 8 8 HOME OUTPATIEN HEALTH T AGENCY HOME [facility], 8 8 DIST OTHER HEALTH DEPT AERODYNAMICS PROFESSOR
--- OUTSIDE RECORDS SUMMARY | 2016-12-16 19:52 | External Medical Summary Rpt ---
Author Author , Organization [employer] Address Unknown Phone Unavailable Care Team Providers Care Credit Manager Name Role Phone ALBA STODDARD, Unavailable Unavailable ALBA STODDARD ANTONIO, Unavailable Unavailable [facility] Unavailable Unavailable SERVICE, [facility] Unavailable Unavailable CENTERS, [facility] Unavailable Unavailable INC, [facility] Unavailable [facility]available CENTER, [facility] Unavailable Unavailable CARE, [facility] Unavailable Unavailable INC, [facility] KIT RICHTER, Unavailable Unavailable KIT RICHTER [facility] Unavailable Unavailable [facility], [facility] Unavailable Unavailable HOLDING, [facility] M E D SUPPLIES, M E D Unavailable Unavailable SUPPLIES YONY BURRIS, Unavailable Unavailable YONY BURRIS STEPHEN A, Unavailable Unavailable ALBA MANLEY MARC D, Unavailable Unavailable FLAKITA LEAL [facility] Unavailable Unavailable ASSOCIATES,[facility], [facility] DAMASO ALMANZAR, Unavailable Unavailable DAMASO ALMANZAR BABATUNDE O, Unavailable Unavailable BARNEY ORTIZ [facility] Unavailable [facility] Unavailable Unavailable DEPT CAMP BOSS, [facility] DE[facility] Unavailable Unavailable AGENCY, [facility] Taurus Vázquez Unavailable Unavailable III , Taurus Vázquez III Mary MATIAS, LEANDRA, Unavailable Unavailable A C Purpose Continuity of Care Document - 08-20-2007 through 2016 Problems Code Diagnosis DOS Provider Status 250.00 250.00 DIAB 01-31-2013 [facility], [facility] Hospital II OR UNSPEC TYPE, NOT UNCNTRLD 401.9 401.9 06-15-2013 Ramandeep HYPERTENSIO [facility] N NOS Hospital 729.81 729.81 01-31-2013 Ramandeep SWELLING OF [facility] LIMB Hospital 780.39 780.39 01-31-2013 Ramandeep OTHER [facility] CONVULSIONS Hospital V12.54 V12.54 01-31-2013 Ramandeep PERSONAL HX [facility] OF TIA,& Hospital CEREBRAL INFARCTION W/OUT RES DEFICITS V58.61 V58.61 01-31-2013 Ramandeep ANTICOAGULA [facility] NTS,LT,[facility] Hospital ENT USE V58.69 V58.69 OTH 01-31-2013 Ramandeep MED,LT,[facility] ENT USE Hospital 20176 DIAB W/O 11-11-2009 M E D MENTION SUPPLIES COMP TYPE II/UNS TYPE UNCNTRL 88552 UNSPECIFIED 11-10-2009 [facility] INCONTINENC CENTERS E 4389 UNSPEC LATE 11-07-2009 [facility] EFF HEALTH CEREBRVASC AGENCY DZ DUE CEREBRVASC DZ 7197 DIFFICULTY 11-07-2009 [facility] IN WALKING HEALTH AGENCY 39241 OTHER 11-07-2009 [facility] MALAISE AND HEALTH FATIGUE AGENCY 437 OTHER 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 CERE[facility] ULAR DISEASE 5950 ACUTE 10-24-2009 [facility]STITIS [facility] 47880 INCOMPLETE 10-24-2009 [facility] BLADDER [facility] EMPTYING INC 4019 UNSPECIFIED 10-17-2009 [facility] HYPERTENSIO CAMP BOSS N 496 CHRONIC 10-17-2009 [facility] OBSTRUCTION CAMP BOSS NEC 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MEL, OSIS OF FLAKITA Penaloza NAIL 7295 PAIN IN 10-07-2009 MEL, SOFT FLAKITA Penaloza TISSUES OF LIMB 32294 DIAB W/O 08-02-2009 [facility] COMP TYPE AMERIC II/UNS NOT HOLDING STATED UNCNTRL 58145 OTH FORM 08-02-2009 [facility] EPILEPSY & AMERIC RECUR HOLDING SEIZUR NO INTRACT EPIL 4011 ESSENTIAL 08-02-2009 [facility] HYPERTENSIO AMERIC N, BENIGN HOLDING 4659 ACUTE URIS 08-02-2009 Mary COATS PSC UNSPECIFIED SITE V5861 LONG-TERM 08-02-2009 Mary MOBLEY (CURRENT) PSC USE OF ANTICOAGULA NTS 5990 URINARY 08-01-2009 [facility] TRACT AMERIC INFECTION HOLDING SITE NOT SPECIFIED 09370 UNSPECIFIED 06-29-2009 [facility] N V0481 NEED 06-01-2009 [facility] CENTER VACCINATION &INOCULATIO N FLU 2724 OTHER AND 05-26-2009 [facility] UNSPECIFIED [facility] INC HYPERLIPIDE ROXANNA 71824 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 436 ACUTE BUT 12-03-2008 [facility] ILL-DEFINED [facility] CEREBROVASC ULAR DISEASE 36476 OTHER 11-24-2008 Mary MOBLEY CONVULSIONS PSC E9479 UNSPEC 11-24-2008 [facility] RX/MEDICINA AMERIC L SBST[place] [address] MALIG HTN 10-08-2008 [facility] FAIL 4589 UNSPECIFIED 10-08-2008 [facility] 4660 ACUTE 10-08-2008 PROST[facility]& BRONCHITIS [facility], [facility] 3320 PARALYSIS 10-01-2008 [facility] AGITANS HEALTH AGENCY 5964 ATONY OF 10-01-2008 [facility] BLADDER HEALTH AGENCY V5789 OTHER 10-01-2008 [facility] SPECIFIED HEALTH REHABILITAT AGENCY ION PROCEDURE OTHER 42100 UNSPECIFIED 07-13-2008 [facility] RETENTION [place] OF URINE CENTERS 7802 SYNCOPE AND 02-24-2008 Mary MOBLEY COLLAPSE PSC 7804 DIZZINESS 02-23-2008 [facility] GIDDINESS SERVICE V653 DIETARY 01-21-2008 [facility] SURVEILLANC HEALTH E AND CENTRAL COUNSELING BANK ACCT V7791 SCREENING 11-06-2007 [facility] FOR LIPOID HEALTH DISORDERS CENTRAL BANK ACCT 7806 FEVER & OTH 09-02-2007 [facility] DISTURBANCE S TEMP [...] Given on t er Refuse d IIV3 LOGSDEN No VACCIN 2008 [facility] 0.5 ML DOSAGE IM USE IIV3 LOGSDEN No VACCIN 2008 [facility] 0.5 ML DOSAGE IM USE IIV3 LOGSDEN No VACCIN 2007 [facility]ALTH [...] DAY CARE S5100 [facility] S[facility]ILLON SERVICES 0 [facility] ADULT; ELDER ELDER PER 15 CARE CARE MINUTES DAY CARE S5100 [facility] SERVICES 0 [facility] ADULT; ELDER ELDER PER 15 CARE CARE MINUTES DAY CARE S5100 [facility] SERVICES 0 [facility] ADULT; ELDER ELDER PER 15 CARE CARE MINUTES BLD GLU A4253 M E D M E D TEST/REAG 0 SUPPLIES SUPPLIES T STRIPS HOME BLD GLU MON-50 LANCETS A4259 M E D M E D PER BOX 0 SUPPLIES SUPPLIES OF 100 DAY CARE S5100 [facility] SERVICES 0 [facility] ADULT; ELDER ELDER PER 15 CARE CARE MINUTES INTERMIT A4351 [facility] URIN 0 [facility]CAR CATH; E CENTERS E CENTERS STRAIGHT TIP W/WO COAT EA DAY CARE S5100 [facility] SABILOLN SERVICES 0 [facility] ADULT; ELDER ELDER PER 15 CARE CARE MINUTES DAY CARE S5100 [facility] SERVICES 0 [facility] ADULT; ELDER ELDER PER 15 CARE CARE MINUTES ADLT SZD T4528 [facility] INCONT HEALTH HEALTH PROD AGENCY AGENCY UNDWEAR XTRA LG EA INCONTINE T4541 [facility] NCE 0 HOME HOME PRODUCT HEALTH HEALTH DISPOSABL AGENCY AGENCY E UNDPAD LARGE EA DAY CARE S5100 [facility] SERVICES 0 [facility] ADULT; ELDER ELDER PER 15 CARE CARE MINUTES DAY CARE S5100 [facility] SERVICES 0 [facility] ADULT; ELDER ELDER PER 15 CARE CARE MINUTES DAY CARE S5100 [facility] SERVICES 0 [facility] ADULT; ELDER ELDER PER 15 CARE CARE MINUTES DAY CARE S5100 [facility] SERVICES 0 [facility] ADULT; ELDER ELDER PER 15 CARE CARE MINUTES DAY CARE S5100 [facility] OLSONON SERVICES 0 [facility] ADULT; ELDER ELDER PER 15 CARE CARE MINUTES CULTURE 22800 [facility] BACTERIAL 0 [facility] INC INC QUANTTATI VE COLONY COUNT URINE CULTURE 84683 [facility] BCT 0 [facility] ISOL&PRSM INC INC PTV ID ISOLATE EA URINE SUSCEPTIB 18731 [facility] LTY STDY 0 [facility] ANTIMICRB INC INC IAL MICRO/AGA R DILUTJ DAY CARE S5100 [facility] SERVICES 0 [facility] ADULT; ELDER ELDER PER 15 CARE CARE MINUTES DAY CARE S5100 RAMANDEEPSHEREE SABILLON SERVICES 0 [facility] ADULT; ELDER ELDER PER 15 CARE CARE MINUTES DAY CARE S5100 [facility] SERVICES 0 [facility] ADULT; ELDER ELDER PER 15 CARE CARE MINUTES DAY CARE S5100 [facility] SERVICES 0 [facility] ADULT; ELDER ELDER PER 15 CARE CARE MINUTES DAY CARE S5100 [facility] SERVICES 0 [facility] ADULT; ELDER ELDER PER 15 CARE CARE MINUTES DAY CARE S5100 [facility] S[facility] SERVICES 0 [facility] ADULT; ELDER ELDER PER 15 CARE CARE MINUTES DAY CARE S5100 RAMANDEEPSHEREE SABILLON SERVICES 0 [facility] ADULT; ELDER ELDER PER 15 CARE CARE MINUTES DAY CARE S5100 RAMAN[facility]EP RAMANDEEP SERVICES 0 [facility] ADULT; ELDER ELDER PER 15 CARE CARE MINUTES INTERMIT A4351 [facility] OUMARWILLY SENA 0 [facility] CATH; E CENTERS E CENTERS STRAIGHT TIP W/WO COAT DAY CARE S5100 [facility] SERVICES 0 [facility] ADULT; ELDER ELDER PER 15 CARE CARE MINUTES DAY CARE S5100 RAMAN[facility]EP RAMANDEEP SERVICES 0 [facility] ADULT; ELDER ELDER PER 15 CARE CARE MINUTES DAY CARE S5100 RAMANDEEP RAMANDEEP SERVICES 0 [facility] ADULT; ELDER ELDER PER 15 CARE CARE MINUTES DAY CARE S5100 RAMANDEEP RAMANDEEP SERVICES 0 [facility] ADULT; ELDER ELDER PER 15 CARE CARE MINUTES DAY CARE S5100 RAMAN[facility]EP RAMANDEEP SERVICES 0 [facility] ADULT; ELDER ELDER PER 15 CARE CARE MINUTES DAY CARE S5100 RAM[facility] RAMANDEEP SERVICES 0 [facility] ADULT; ELDER ELDER PER 15 CARE CARE MINUTES ADLT SZD T4528 [facility] 0 HOME HOME INCONT HEALTH HEALTH PROD AGENCY AGENCY UNDWEAR XTRA LG EA DAY CARE S[address] ADULT; ELDER ELDER PER 15 CARE CARE MINUTES DAY CARE S5[address] ADULT; ELDER ELDER PER 15 CARE CARE MINUTES DAY CARE S5[address] ADULT; ELDER ELDER PER 15 CARE CARE MINUTES DAY CARE S5[address] ADULT; ELDER ELDER PER 15 CARE CARE MINUTES DAY CARE S5[address] ADULT; ELDER ELDER PER 15 CARE CARE MINUTES DAY CARE S5[address] ADULT; ELDER ELDER PER 15 CARE CARE MINUTES PROTHROMB 78889 Mary MANLEY, IN TIME 9 LEANDRA Hernandez PSC INJ J0702 Mary MANLEY BETAMETHA 9 LEANDRA Hernandez SONE PSC ACETATE & PHOSPHATE 3 MG BASIC 91753 [facility] METABOLIC 9 AMERIC AMERIC PANEL HOLDING HOLDING CALCIUM TOTAL IM ADM 93834 Mary MANLEY PRQ ID 9 LEANDRA Hernandez SUBQ/IM PSC NJXS 1 VACCINE COLLECTIO 05898 Mary MANLEY N VENOUS 9 LEANDRA Hernandez BLOOD PSC VENIPUNCT URE GLUCOSE 82717 Mary MANLEY QUANTITAT 9 LEANDRA Hernandez TAYLER BLOOD PSC XCPT REAGENT STRIP HEMOGLOBI 07618 Mary MANLEY N 9 LEANDRA Hernandez GLYCOSYLA PSC SUSAN A1C DRUG 48567 [facility] LAB ANIKA ASSAY 9 AMERIC AMERIC VALPROIC HOLDING HOLDING DIPROPYLA CETIC ACID TOTAL SUSCEPTIB 53181 [facility] LTY STDY 9 AMERIC AMERIC ANTIMICRB HOLDING HOLDING IAL MICRO/AGA R DILUTJ URINLS 14957 Mary ALMANZAR DIP 9 LEANDRA WHITESIDE DAMASO STICK/TAB PSC LET REAGNT NON-AUTO MICRSCPY CUL BACT 99221 [facility] AEROBIC 9 AMERIC AMERIC ADDL HOLDING HOLDING METHS DEFINITIV E EA ISOL CULTURE 80626 [facility] BACTERIAL 9 AMERIC AMERIC HOLDING HOLDING QUANTTATI VE COLONY COUNT URINE CULTURE 80321 LAB [facility] BCT 9 AMERIC AMERIC ISOL&PRSM HOLDING HOLDING PTV ID ISOLATE EA URINE DAY CARE S[address] ADULT; ELDER ELDER PER 15 CARE CARE MINUTES DAY CARE S5[address] ADULT; ELDER ELDER PER 15 CARE CARE MINUTES DAY CARE S5[address] ADULT; ELDER ELDER PER 15 CARE CARE MINUTES DAY CARE S5[address] ADULT; ELDER ELDER PER 15 CARE CARE MINUTES DAY CARE S5[address] ADULT; ELDER ELDER PER 15 CARE CARE MINUTES ADLT SZD T4528 [facility] 9 HOME HOME INCONT HEALTH HEALTH PROD AGENCY AGENCY UNDWEAR XTRA LG EA DEBRIDEME 06983 PAWSAT, PAWSAT, NT NAIL 9 FLAKITA Penaloza ANY METHOD 6/> DAY CARE S[address] ADULT; ELDER ELDER PER 15 CARE CARE MINUTES DAY CARE S5[address] ADULT; ELDER ELDER PER 15 CARE CARE MINUTES INTERMIT A4351 [facility] CATH; E CENTERS E CENTERS STRAIGHT TIP W/WO COAT EA DAY CARE S[address] ADULT; ELDER ELDER PER 15 CARE CARE MINUTES DAY CARE S5[address] ADULT; ELDER ELDER PER 15 CARE CARE MINUTES DAY CARE S5[address] ADULT; ELDER ELDER PER 15 CARE CARE MINUTES DAY CARE S5[address] ADULT; ELDER ELDER PER 15 CARE CARE MINUTES DAY CARE S5[address] ADULT; ELDER ELDER PER 15 CARE CARE MINUTES DAY CARE S5[address] ADULT; ELDER ELDER PER 15 CARE CARE MINUTES DAY CARE S5[address] ADULT; ELDER ELDER PER 15 CARE CARE MINUTES DAY CARE S5100 [facility] SERVICES 9 [facility] ADULT; ELDER ELDER PER 15 CARE CARE MINUTES DAY CARE S5100 [facility] SERVICES 9 [facility] ADULT; ELDER ELDER PER 15 CARE CARE MINUTES DAY CARE S5100 [facility] SERVICES 9 [facility] ADULT; ELDER ELDER PER 15 CARE CARE MINUTES DAY CARE S5100 RAMANDEEP SABILLON [facility] 9 [facility] ADULT; ELDER ELDER PER 15 CARE CARE MINUTES DAY CARE S5100 RAMANDEEP SABILLON [address] ADULT; ELDER ELDER PER 15 CARE CARE MINUTES DAY CARE S5100 RAM[facility]DEEP SABILL[facility] SERVICES 9 [facility] ADULT; ELDER ELDER PER 15 CARE CARE MINUTES DAY CARE S5100 [facility] S[facility] SERVICES 9 [facility] ADULT; ELDER ELDER PER 15 CARE CARE MINUTES INCONTINE T4541 [facility] NCE 9 HOME HOME PRODUCT HEALTH HEALTH DISPOSABL AGENCY AGENCY E UNDPAD LARGE EA DAY CARE S5100 RAMANDEEP SABILLON [facility] 9 [facility] ADULT; ELDER ELDER PER 15 CARE CARE MINUTES DAY CARE S5100 RAMANDEEP SABILLON [facility] 9 [facility] ADULT; ELDER ELDER PER 15 CARE CARE MINUTES IIV3 96131 RAMANDEEP SABILLON VACCINE 9 [employer] HEALTH SPLIT CENTER CENTER VIRUS 0.5 ML DOSAGE IM USE ADMINISTR G0008 RAMANDEEP SABILLON ATION OF 9 [employer] HEALTH INFLUENZA CENTER CENTER VIRUS VACCINE ADLT SZD T4528 [facility] 9 HOME HOME INCONT HEALTH HEALTH PROD AGENCY AGENCY UNDWEAR XTRA LG EA DAY CARE S5100 [facility] S[facility] SERVICES 9 [facility] ADULT; ELDER ELDER PER 15 CARE CARE MINUTES DAY CARE S5100 [facility] SERVICES [address] [place] [address] ADULT; ELDER ELDER PER 15 CARE CARE MINUTES BASIC 98414 RAM[facility]EP SABILL[facility] METABOLIC 9 [facility] [place] [address] RAM[facility] S[facility] THYROID 9 [facility] STIMULATI INC INC NG HORMONE TSH COLLECTIO 10909 RAMANDEEP SABILL[facility] N VENOUS 9 [facility] BLOOD INC INC VENIPUNCT URE INTERMIT A4351 [facility] SENA 9 [facility] CATH; E CENTERS E CENTERS STRAIGHT TIP W/WO COAT EA DAY CARE S[address] ADULT; ELDER ELDER PER 15 CARE CARE MINUTES DAY CARE S5[address] ADULT; ELDER ELDER PER 15 CARE CARE MINUTES DAY CARE S5[address] ADULT; ELDER ELDER PER 15 CARE CARE MINUTES DAY CARE S5[address] ADULT; ELDER ELDER PER 15 CARE CARE MINUTES DAY CARE S5[address] ADULT; ELDER ELDER PER 15 CARE CARE MINUTES DAY CARE S[address] ADULT; ELDER ELDER PER 15 CARE CARE MINUTES DAY CARE S5[address] ADULT; ELDER ELDER PER 15 CARE CARE MINUTES DAY CARE S5[address] ADULT; ELDER ELDER PER 15 CARE [...] T STRIPS HOME BLD GLU MON-50 IIV3 58860 RAMANDEEP SABILLON VACCINE 9 [facility] CENTER VIRUS 0.5 ML DOSAGE IM USE ADMINISTR G0008 RAMANDEEP SABILLON ATION OF 9 [facility] INFLUENZA CENTER CENTER VIRUS VACCINE DAY CARE S[address] ADULT; ELDER ELDER PER 15 CARE CARE MINUTES DAY CARE S5[address] ADULT; ELDER ELDER PER 15 CARE CARE MINUTES DAY CARE S5[address] ADULT; ELDER ELDER PER 15 CARE CARE MINUTES DAY CARE S5100 [place] [address] [place] ADULT; ELDER ELDER PER 15 CARE CARE MINUTES DAY CARE S5100 [address]EP [address] ADULT; ELDER ELDER PER 15 CARE CARE MINUTES DAY CARE S[address] ADULT; ELDER ELDER PER 15 CARE CARE MINUTES DAY CARE S5100 RAM[address]EP [address] ADULT; ELDER ELDER PER 15 CARE CARE MINUTES DAY CARE S[address] ADULT; ELDER ELDER PER 15 CARE CARE MINUTES DAY CARE S5100 RAM[address]EP [address] ADULT; ELDER ELDER PER 15 CARE CARE MINUTES DAY CARE S[address] ADULT; ELDER ELDER PER 15 CARE CARE MINUTES INTERMIT A4351 [facility] 9 [facility] CATH; E CENTERS E CENTERS STRAIGHT TIP W/WO COAT EA DAY CARE S5100 RAMANDEEP [address] ADULT; ELDER ELDER PER 15 CARE CARE MINUTES DAY CARE S5100 RAM[facility]EP [address] ADULT; ELDER ELDER PER 15 CARE CARE MINUTES DAY CARE S5100 [facility]EP [address] ADULT; ELDER ELDER PER 15 CARE CARE MINUTES DAY CARE S[address] ADULT; ELDER ELDER PER 15 CARE CARE MINUTES DAY [facility] [facility] [address] ADULT; ELDER ELDER PER 15 CARE CARE MINUTES ADLT SZD T4528 [facility] 9 HOME HOME [facility] HEALTH HEALTH PROD AGENCY AGENCY UNDWEAR XTRA LG EA DAY CARE S5100 RAMANDEEP RAMANDEEP [employer] [address] [place] [address] ADULT; ELDER ELDER PER 15 CARE CARE MINUTES DAY CARE S5100 RAMANDEEP [address] ADULT; ELDER ELDER PER 15 CARE CARE MINUTES DAY CARE S[address] ADULT; ELDER ELDER PER 15 CARE CARE MINUTES OPHTH 19092 ROBER, ROBER, MEDICAL 9 KIT A KIT A XM&JOELLE COMPRHNSV ESTAB PT 1/> DAY CARE S5100 [facility]EP SABILL[facility] SERVICES [address] [place] [address] ADULT; ELDER ELDER PER 15 CARE CARE MINUTES DAY CARE S5100 RAMANDEEP SABILLON [address] ADULT; ELDER ELDER PER 15 CARE CARE MINUTES DAY CARE S5100 [facility] S[facility] SERVICES [address] [place] [address] ADULT; ELDER ELDER PER 15 CARE CARE MINUTES DAY CARE S5100 [facility] S[facility] SERVICES [address] [place] [address] ADULT; ELDER ELDER PER 15 CARE CARE MINUTES DAY CARE S5100 RAMANDEEP SABILLON [address] ADULT; ELDER ELDER PER 15 CARE CARE MINUTES COLLECTIO 25808 [facility] S[facility] N VENOUS 9 [facility] BLOOD INC INC VENIPUNCT URE BASIC 13062 [facility]EP S[facility] METABOLIC 9 [facility] [place] [address] RAMANDEEP SABILL[facility] RETROPERI 9 [facility] TONEAL INC INC REAL TIME W/IMAGE COMPLETE DAY CARE S5100 RAMANDEEP SABILLON [address] ADULT; ELDER ELDER PER 15 CARE CARE MINUTES DAY CARE S5100 RAMANDEEP SABILLON [address] ADULT; ELDER ELDER PER 15 CARE CARE MINUTES DAY CARE S5100 RAMANDEEP SABILLON [address] ADULT; ELDER ELDER PER 15 CARE CARE MINUTES DAY CARE S5100 RAMANDEEP SABILLON [address] ADULT; ELDER ELDER PER 15 CARE CARE MINUTES DAY CARE S5100 RAMANDEEP SABILLON [address] ADULT; ELDER ELDER PER 15 CARE CARE MINUTES DAY CARE S5100 RAMANDEEP SABILLON [address] ADULT; ELDER ELDER PER 15 CARE CARE MINUTES DAY CARE S5100 RAMANDEEP SABILLON [address] ADULT; ELDER ELDER PER 15 CARE CARE MINUTES DAY CARE S5100 RAMANDEEP SABILLON [address] ADULT; ELDER ELDER PER 15 CARE CARE MINUTES DAY CARE S5100 RAMANDEEPSHEREE SABILLON [address] ADULT; ELDER ELDER PER 15 CARE CARE MINUTES DAY CARE S5100 RAMANDEEPSHEREE SABILLON [address] ADULT; ELDER ELDER PER 15 CARE CARE MINUTES DAY CARE S5100 RAMANDEEPSHEREE SABILLON [address] ADULT; ELDER ELDER PER 15 CARE CARE MINUTES TRANS L3620 [facility] [facility] ORTHOS 1 9 [facility] SHOE-ANOT PROST[facility] PROSTH HER SLD INC INC STIRRUP EXISTING REPAIR L4205 [facility] [facility] ORTHOTIC 9 [facility] DEVC PROSTH PROSTH LABOR INC INC COMPONENT PER 15 MIN ADD LW L2270 [place] [facility] EXT 9 BRACE BRACE VARUS/TARI PROSTH PROSTH ROBERTA WILMER INC INC STRAP PAD/LINE PAD DIAB ONLY A5500 [facility] FIT CSTM 9 BRACE BRACE PREP&SPL PROSTH PROSTH SHOE MX INC INC DNSITY INSRT DAY CARE S[address] ADULT; ELDER ELDER PER 15 CARE CARE MINUTES DAY CARE S5100 [address] ADULT; ELDER ELDER PER 15 CARE CARE MINUTES DAY CARE S5100 [address] ADULT; ELDER ELDER PER 15 CARE CARE MINUTES DAY CARE S5100 [address] ADULT; ELDER ELDER PER 15 CARE CARE MINUTES DAY CARE S5100 [address] ADULT; ELDER ELDER PER 15 CARE CARE MINUTES ADLT SZD [id number] [facility] PROD AGENCY AGENCY UNDWEAR XTRA LG EA DAY CARE S5[address] ADULT; ELDER ELDER PER 15 CARE CARE MINUTES INTERMIT A4351 OUMAR OUMAR URIN 9 [place] [facility] CATH; E CENTERS E CENTERS STRAIGHT TIP W/WO COAT EA URINLS 44155 A C SINDHU, DIP 9 LEANDRA Hernandez STICK/TAB PSC LET REAGNT NON-AUTO MICRSCPY CULTURE 18318 LAB [facility] BACTERIAL 9 [employer] QUANTTATI VE COLONY COUNT URINE DAY CARE S5[address] ADULT; ELDER ELDER PER 15 CARE CARE MINUTES DAY CARE S5100 [address] ADULT; ELDER ELDER PER 15 CARE CARE MINUTES DAY CARE S5100 [address] ADULT; ELDER ELDER PER 15 CARE CARE MINUTES DAY CARE S5100 [address] ADULT; ELDER ELDER PER 15 CARE CARE MINUTES CULTURE 66519 LAB [facility] BACTERIAL 9 [employer] QUANTTATI VE COLONY COUNT URINE CULTURE 84929 [facility] BCT 9 [employer] ISOL&PRSM HOLDING HOLDING PTV ID ISOLATE EA URINE CUL BACT 83652 LAB [facility] AEROBIC 9 [employer] ADDL [employer] HOLDING METHS DEFINITIV E EA ISOL URINLS 75859 A C JENELLE, DIP 9 LEANDRA WHITESIDE DAMASO STICK/TAB PSC LET REAGNT NON-AUTO MICRSCPY SUSCEPTIB 60768 LAB [facility] LTY STDY 9 [employer] ANTIMICRB [employer] HOLDING IAL MICRO/AGA R DILUTJ DAY CARE S5[address] ADULT; ELDER ELDER PER 15 CARE CARE MINUTES DAY CARE S5100 [address] ADULT; ELDER ELDER PER 15 CARE CARE MINUTES DAY CARE S5100 [address] ADULT; ELDER ELDER PER 15 CARE CARE MINUTES DAY CARE S5100 [address] ADULT; ELDER ELDER PER 15 CARE CARE MINUTES DAY CARE S5100 [address] ADULT; ELDER ELDER PER 15 CARE CARE MINUTES DAY CARE S5100 [address] ADULT; ELDER ELDER PER 15 CARE CARE MINUTES DAY CARE S5[address] ADULT; ELDER ELDER PER 15 CARE CARE MINUTES DAY CARE S5100 [address] ADULT; ELDER ELDER PER 15 CARE CARE MINUTES INTERMIT A4351 [facility]; E CENTERS E CENTERS STRAIGHT TIP W/WO COAT EA DAY CARE S5[address] ADULT; ELDER ELDER PER 15 CARE CARE MINUTES DAY CARE S5100 [address] ADULT; ELDER ELDER PER 15 CARE CARE MINUTES DAY CARE S5100 [address] ADULT; ELDER ELDER PER 15 CARE CARE MINUTES DAY CARE S5[address] ADULT; ELDER ELDER PER 15 CARE CARE MINUTES DAY CARE S5100 [employer] [facility] [address] [place] [address] ADULT; ELDER ELDER PER 15 CARE CARE MINUTES DAY CARE S5100 [facility] [address] [place] [address] ADULT; ELDER ELDER PER 15 CARE CARE MINUTES DAY CARE S5100 [facility] [address] [place] [address] ADULT; ELDER ELDER PER 15 CARE CARE MINUTES ADLT SZD T4528 [facility] 9 HOME HOME [facility] HEALTH PROD AGENCY AGENCY UNDWEAR XTRA LG EA DAY CARE S5100 [facility] [address] [place] [address] ADULT; ELDER ELDER PER 15 CARE CARE MINUTES DAY CARE S5100 [facility] [address] [place] [address] ADULT; ELDER ELDER PER 15 CARE CARE MINUTES DAY CARE S5100 [facility] [address] [place] [address] ADULT; ELDER ELDER PER 15 CARE CARE MINUTES DAY CARE S[address] [facility] [address] [place] [address] ADULT; ELDER ELDER PER 15 CARE CARE MINUTES DAY CARE S[address] [address] [place] [address] ADULT; ELDER ELDER PER 15 CARE CARE MINUTES DAY CARE S[address] [place] [address] ADULT; ELDER ELDER PER 15 CARE CARE MINUTES DAY CARE S[address] [address] [place] [address] ADULT; ELDER ELDER PER 15 CARE CARE MINUTES DAY CARE S[address] [address] [place] [address] ADULT; ELDER ELDER PER 15 CARE CARE MINUTES DAY CARE S[address] [address] [place] [address] ADULT; ELDER ELDER PER 15 CARE CARE MINUTES DAY CARE S[address] [address] [place] [address] ADULT; ELDER ELDER PER 15 CARE CARE MINUTES DAY CARE S[address] [facility] [address] [place] [address] ADULT; ELDER ELDER PER 15 CARE CARE MINUTES DAY CARE S[address] [facility] [address] [place] [address] ADULT; ELDER ELDER PER 15 CARE CARE MINUTES DAY CARE S5100 [facility] [address] [place] [address] ADULT; ELDER ELDER PER 15 CARE CARE MINUTES DAY CARE S5100 [facility] [address] [place] [address] ADULT; ELDER ELDER PER 15 CARE CARE MINUTES DAY CARE S[address] [facility] [address] [place] [address] ADULT; ELDER ELDER PER 15 CARE CARE MINUTES DAY CARE S5100 RAMANDEEP RAMANDEEP [address] ADULT; ELDER ELDER PER 15 CARE CARE MINUTES DAY CARE S[address] ADULT; ELDER ELDER PER 15 CARE CARE MINUTES DAY CARE S5100 RAMANDEEP RAMANDEEP [address] ADULT; ELDER ELDER PER 15 CARE CARE MINUTES DAY CARE S[address] ADULT; ELDER ELDER PER 15 CARE CARE MINUTES TRAPEZE E0940 [facility] BAR 9 HOME MED HOME MED FREESTAND EQUIP. EQUIP. ING [facility] COMPLETE WITH GRAB BAR HOS BED E0260 Y[facility] TOPETE SEMI-ELEC 9 HOME MED HOME MED W/ANY EQUIP. EQUIP. TYPE SIDE [facility] RAIL W/MATTRSS DAY CARE S[address] ADULT; ELDER ELDER PER 15 CARE CARE MINUTES DAY CARE S5[address] ADULT; ELDER ELDER PER 15 CARE CARE MINUTES DAY CARE S5100 [address] ADULT; ELDER ELDER PER 15 CARE CARE MINUTES DAY CARE S5[address] ADULT; ELDER ELDER PER 15 CARE CARE MINUTES DAY CARE S5[address] ADULT; ELDER ELDER PER 15 CARE CARE MINUTES DAY CARE S5100 [address] ADULT; ELDER ELDER PER 15 CARE CARE MINUTES PROTHROMB 75232 Mary HANDY IN TIME 9 LEANDRA Messer PSC BASIC 96134 LAB [facility] METABOLIC 9 AMERIC AMERIC PANEL HOLDING HOLDING CALCIUM TOTAL COLLECTIO 53108 Mary HANDY N VENOUS 9 LEANDRA Messer BLOOD PSC VENIPUNCT URE DRUG 43260 [facility] ASSAY 9 AMERIC AMERIC VALPROIC HOLDING HOLDING DIPROPYLA CETIC ACID TOTAL ADLT SZD T4528 [facility] HOME HOME INCONT HEALTH HEALTH PROD AGENCY AGENCY UNDWEAR XTRA LG EA DAY CARE S[address] ADULT; ELDER ELDER PER 15 CARE CARE MINUTES DAY CARE S5100 [address] ADULT; ELDER ELDER PER 15 CARE CARE MINUTES DAY CARE S5[address] ADULT; ELDER ELDER PER 15 CARE CARE MINUTES DAY CARE S5[address] ADULT; ELDER ELDER PER 15 CARE CARE MINUTES URINLS 37451 A Ayde MOBLEY, A DIP 9 LEANDRA WHITESIDE C STICK/TAB PSC LET REAGNT NON-AUTO MICRSCPY INCONTINE T4541 [facility] NCE 9 HOME HOME PRODUCT HEALTH HEALTH DISPOSABL AGENCY AGENCY E UNDPAD LARGE EA DAY CARE S[address] ADULT; ELDER ELDER PER 15 CARE CARE MINUTES DAY CARE S5100 [address] ADULT; ELDER ELDER PER 15 CARE CARE MINUTES DAY CARE S5[address] ADULT; ELDER ELDER PER 15 CARE CARE MINUTES DAY CARE S5[address] ADULT; ELDER ELDER PER 15 CARE CARE MINUTES TRAPEZE E0940 Y[facility]LYN SCHROEDER 9 HOME MED HOME MED FREESTAND EQUIP. EQUIP. ING [facility] COMPLETE WITH GRAB [facility] HOS BED E0260 YOSELYN TOPETE SEMI-ELEC 9 HOME MED HOME MED W/ANY EQUIP. EQUIP. TYPE SIDE [facility] RAIL W/MATTRSS DAY CARE S[address] ADULT; ELDER ELDER PER 15 CARE CARE MINUTES DAY CARE S5100 [address] ADULT; ELDER ELDER PER 15 CARE CARE MINUTES DAY CARE S5100 [address] ADULT; ELDER ELDER PER 15 CARE CARE MINUTES DAY CARE S5100 [address] ADULT; ELDER ELDER PER 15 CARE CARE MINUTES DAY CARE S5100 [address] ADULT; ELDER ELDER PER 15 CARE CARE MINUTES DAY CARE S5100 [address] ADULT; ELDER ELDER PER 15 CARE CARE MINUTES DAY CARE S5[address] ADULT; ELDER ELDER PER 15 CARE CARE MINUTES DAY CARE S5[address] ADULT; ELDER ELDER PER 15 CARE CARE MINUTES DAY CARE S5[address] ADULT; ELDER ELDER PER 15 CARE CARE MINUTES DAY CARE S5[address] ADULT; ELDER ELDER PER 15 CARE CARE MINUTES DAY CARE S5[address] ADULT; ELDER ELDER PER 15 CARE CARE MINUTES CULTURE 35445 LAB [facility] BCT 9 AMERIC AMERIC ISOL&PRSM HOLDING HOLDING PTV ID ISOLATE EA URINE CUL BACT 64897 [facility] AEROBIC 9 AMERIC AMERIC ADDL HOLDING HOLDING METHS DEFINITIV E EA ISOL CULTURE 25791 LAB [facility] BACTERIAL 9 AMERIC [employer] HOLDING HOLDING QUANTTATI VE COLONY COUNT URINE SUSCEPTIB 12914 LAB [facility] LTY STDY 9 AMERIC AMERIC ANTIMICRB HOLDING HOLDING IAL MICRO/AGA R DILUTJ URINLS 23003 A Mary SMITH DIP 9 LEANDRA WHITESIDE C STICK/TAB PSC LET REAGNT NON-AUTO MICRSCPY DAY CARE S5[address] ADULT; ELDER ELDER PER 15 CARE CARE MINUTES DAY CARE S5100 [address] ADULT; ELDER ELDER PER 15 CARE CARE MINUTES DAY CARE S5[address] ADULT; ELDER ELDER PER 15 CARE CARE MINUTES DAY CARE S5[address] ADULT; ELDER ELDER PER 15 CARE CARE MINUTES CERVICAL L0172 PROSTHETI PROSTHETI COLLAR 9 C&ORTHOTI C&ORTHOTI SEMI-RIGI C C D FOAM ASSOCIATE ASSOCIATE [employer] [facility]SE[facility] S,LL[facility] PREFAB DAY CARE S[address] ADULT; ELDER ELDER PER 15 CARE CARE MINUTES DAY CARE S5[address] ADULT; ELDER ELDER PER 15 CARE CARE MINUTES TRAPEZE E0940 Y[facility]LYN SCHROEDER 9 HOME MED HOME MED FREESTAND EQUIP. E[facility]IP. [facility] COMPLETE WITH GRAB [facility] H[facility] BED E0260 Y[facility]N TOPETE SEMI-ELEC 9 HOME MED HOME MED W/ANY EQUIP. EQUIP. TYPE SIDE [facility] RAIL W/MATTRSS ADLT SZD T4528 [facility] 9 HOME HOME INCONT HEALTH HEALTH PROD AGENCY AGENCY EMIL XTRA LG EA DAY CARE S[address] ADULT; ELDER ELDER PER 15 CARE CARE MINUTES DAY CARE S5[address] ADULT; ELDER ELDER PER 15 CARE CARE MINUTES DAY CARE S5[address] ADULT; ELDER ELDER PER 15 CARE CARE MINUTES DAY CARE S5[address] ADULT; ELDER ELDER PER 15 CARE CARE MINUTES DAY CARE S5[address] ADULT; ELDER ELDER PER 15 CARE CARE MINUTES URINLS 92633 A Ayde MOBLEY, A DIP 9 LEANDRA Messer STICK/TAB PSC LET REAGNT NON-AUTO MICRSCPY INTERMIT A4351 [facility]IN 9 [facility]ATH; E CENTERS E CENTERS STRAIGHT TIP W/WO COAT EA DAY CARE S5[address] ADULT; ELDER ELDER PER 15 CARE CARE MINUTES DAY CARE S5100 [address] ADULT; ELDER ELDER PER 15 CARE CARE MINUTES DAY CARE S5[address] ADULT; ELDER ELDER PER 15 CARE CARE MINUTES DAY CARE S5[address] ADULT; ELDER ELDER PER 15 CARE CARE MINUTES DAY CARE S5[address] ADULT; ELDER ELDER PER 15 CARE CARE MINUTES DAY CARE S5[address] ADULT; ELDER ELDER PER 15 CARE CARE MINUTES DAY CARE S5[address] ADULT; ELDER ELDER PER 15 CARE CARE MINUTES URINLS 60132 A C MOBLEY, A DIP 9 LEANDRA Messer STICK/TAB PSC LET REAGNT NON-AUTO MICRSCPY CULTURE 72923 LAB [facility] BCT 9 AMERIC AMERIC ISOL[employer]PRSM HOLDING HOLDING PTV ID ISOLATE EA URINE CULTURE 59469 LAB [facility] LAB [facility] BACTERIAL 9 AMERIC AMERIC HOLDING HOLDING QUANTTATI VE COLONY COUNT URINE CUL BACT 42754 LAB [facility] AEROBIC 9 AMERIC AMERIC ADDL HOLDING HOLDING METHS DEFINITIV E EA ISOL SUSCEPTIB 88562 LAB [facility] LTY STDY 9 AMERIC AMERIC ANTIMICRB HOLDING HOLDING IAL MICRO/AGA R DILUTJ TRAPEZE E0940 [facility] BAR 9 HOME MED HOME MED FREESTAND EQUIP. EQUIP. ING [facility] COMPLETE WITH GRAB BAR HOS BED E0260 Y[facility]N YOSELYN SEMI-ELEC 9 HOME MED HOME MED W/ANY EQUIP. EQUIP. TYPE SIDE [facility] RAIL W/MATTRSS DAY CARE S[address] ADULT; ELDER ELDER PER 15 CARE CARE MINUTES DAY CARE S5[address] ADULT; ELDER ELDER PER 15 CARE CARE MINUTES DAY CARE S5[address] ADULT; ELDER ELDER PER 15 CARE CARE MINUTES DAY CARE S5[address] ADULT; ELDER ELDER PER 15 CARE CARE MINUTES DAY CARE S5[address] ADULT; ELDER ELDER PER 15 CARE CARE MINUTES DAY CARE S5[address] ADULT; ELDER ELDER PER 15 CARE CARE MINUTES DAY CARE S5[address] ADULT; ELDER ELDER PER 15 CARE CARE MINUTES INTERMIT A4351 [facility] SENA [facility]ATH; E CENTERS E CENTERS STRAIGHT TIP W/WO COAT EA DAY CARE S[address] ADULT; ELDER ELDER PER 15 CARE CARE MINUTES DAY CARE S5[address] ADULT; ELDER ELDER PER 15 CARE CARE MINUTES ADLT SZD T4528 [facility] 9 HOME HOME INCONT HEALTH HEALTH PROD AGENCY AGENCY UNDWEAR XTRA LG EA DAY CARE S[address] ADULT; ELDER ELDER PER 15 [...] SUPPLIES SUPPLIES OF 100 DAY CARE S[address] ADULT; ELDER ELDER PER 15 CARE CARE MINUTES DAY CARE S5[address] ADULT; ELDER ELDER PER 15 CARE CARE MINUTES DAY CARE S[address] ADULT; ELDER ELDER PER 15 CARE CARE MINUTES SUSCEPTIB 80546 LAB [facility] LTY STDY 8 AMERIC AMERIC ANTIMICRB HOLDING HOLDING IAL MICRO/AGA R DILUTJ DAY CARE S[address] ADULT; ELDER ELDER PER 15 CARE CARE MINUTES CUL BACT 37453 LAB [facility] AEROBIC 8 AMERIC AMERIC ADDL HOLDING HOLDING METHS DEFINITIV E EA ISOL CULTURE 67775 LAB AN[facility] LAB ANIK[facility] BCT 8 AMERIC AMERIC ISOL&PRSM HOLDING HOLDING PTV ID ISOLATE EA URINE CULTURE 11766 LAB [facility] BACTERIAL 8 AMERIC AMER[employer] HOLDING HOLDING QUANTTATI VE COLONY COUNT URINE TRAPEZE E0940 YOSELYN SCHROEDER 8 HOME MED HOME MED FREESTAND EQUIP. EQUIP. [facility] COMPLETE WITH ART [facility] DAY CARE S[address] ADULT; ELDER ELDER PER 15 CARE CARE MINUTES HOS BED E0260 YOSELYN TOPETE SEMI-ELEC 8 HOME MED HOME MED W/ANY EQUIP. EQUIP. TYPE SIDE [facility] RAIL W/MATTRSS DAY CARE S[address] ADULT; ELDER ELDER PER 15 CARE CARE MINUTES DAY CARE S[address] ADULT; ELDER ELDER PER 15 CARE CARE MINUTES DAY CARE S[address] ADULT; ELDER ELDER PER 15 CARE CARE MINUTES DAY CARE S5[address] ADULT; ELDER ELDER PER 15 CARE CARE MINUTES DAY CARE S5[address] ADULT; ELDER ELDER PER 15 CARE CARE MINUTES DAY CARE S5[address] ADULT; ELDER ELDER PER 15 CARE CARE MINUTES DAY CARE S5[address] ADULT; ELDER ELDER PER 15 CARE CARE MINUTES DAY CARE S5[address] ADULT; ELDER ELDER PER 15 CARE CARE MINUTES DAY CARE S5[address] ADULT; ELDER ELDER PER 15 CARE CARE MINUTES INTERMIT A4351 [facility] SENA [facility] CATH; E CENTERS E CENTERS STRAIGHT TIP W/WO COAT EA DAY CARE S[address] ADULT; ELDER ELDER PER 15 CARE CARE MINUTES DAY CARE S5[address] ADULT; ELDER ELDER PER 15 CARE CARE MINUTES DAY CARE S5[address] ADULT; ELDER ELDER PER 15 CARE CARE MINUTES DAY CARE S5[address] ADULT; ELDER ELDER PER 15 CARE CARE MINUTES DAY CARE S[address] ADULT; ELDER ELDER PER 15 CARE CARE MINUTES TRAPEZE E0940 YOSELYN SCHROEDER 8 HOME MED HOME MED FREESTAND EQUIP. EQUIP. ING [facility] BED E0260 YOSELYN TOPETE SEMI-ELEC 8 HOME MED HOME MED W/ANY EQUIP. EQUIP. TYPE SIDE [facility] RAIL W/MATTRSS DAY CARE S[address] ADULT; ELDER ELDER PER 15 CARE CARE MINUTES DAY CARE S[address] ADULT; ELDER ELDER PER 15 CARE CARE MINUTES DAY CARE S5[address] ADULT; ELDER ELDER PER 15 CARE CARE MINUTES DAY CARE S[address] ADULT; ELDER ELDER PER 15 CARE CARE MINUTES DAY CARE S[address] ADULT; ELDER ELDER PER 15 CARE CARE MINUTES ADLT SZD T4528 [facility] 8 HOME HOME [facility] HEALTH PROD AGENCY AGENCY UNDWEAR XTRA LG EA DAY CARE S[address] ADULT; ELDER ELDER PER 15 CARE CARE MINUTES DAY CARE S5[address] ADULT; ELDER ELDER PER 15 CARE CARE MINUTES DAY CARE S5[address] ADULT; ELDER ELDER PER 15 CARE CARE MINUTES DAY CARE S5[address] ADULT; ELDER ELDER PER 15 CARE CARE MINUTES DAY CARE S5[address] ADULT; ELDER ELDER PER 15 CARE CARE MINUTES URINLS 00691 Mary HANDY 8 LEANDRA WHITESIDE C STICK/TAB PSC LET REAGNT NON-AUTO MICRSCPY DAY CARE S[address] ADULT; ELDER ELDER PER 15 CARE CARE MINUTES DAY CARE S5[address] ADULT; ELDER ELDER PER 15 CARE CARE MINUTES IIV3 53289 [facility] VACCINE 8 [facility] SPLIT CENTER CENTER VIRUS 0.5 ML DOSAGE IM USE ADMINISTR G0008 [facility] ATION OF 8 [facility] INFLUENZA CENTER CENTER VIRUS VACCINE DAY CARE S[address] ADULT; ELDER ELDER PER 15 CARE CARE MINUTES DAY CARE S5[address] ADULT; ELDER ELDER PER 15 CARE CARE MINUTES DAY CARE S5[address] ADULT; ELDER ELDER PER 15 CARE CARE MINUTES DAY CARE S5[address] ADULT; ELDER ELDER PER 15 CARE CARE MINUTES DAY CARE S5[address] ADULT; ELDER ELDER PER 15 CARE CARE MINUTES DAY CARE S[address] ADULT; ELDER ELDER PER 15 CARE CARE MINUTES SUSCEPTIB 39167 LAB [facility] LAB [facility] LTY STDY 8 AMERIC AMERIC ANTIMICRB HOLDING HOLDING IAL MICRO/AGA R DILUTJ TRAPEZE E0940 Y[facility] YOSE[facility]N BAR 8 HOME MED HOME MED FREESTAND EQUIP. EQUIP. [facility] COMPLETE WITH GRAB BAR CULTURE 50035 LAB ANIKA LAB [facility] BACTERIAL 8 AMERIC AMERIC HOLDING HOLDING QUANTTATI VE COLONY COUNT URINE CULTURE 15679 LAB [facility] LAB ANIK[facility] BCT 8 AMERIC AMERIC ISOL&PRSM HOLDING HOLDING PTV ID ISOLATE EA URINE CUL BACT 68600 LAB [facility] AEROBIC 8 AMERIC AMERIC ADDL HOLDING HOLDING METHS DEFINITIV E EA ISOL HOS BED E0260 Y[facility]N YOSELYN SEMI-ELEC 8 HOME MED HOME MED W/ANY EQUIP. EQUIP. TYPE SIDE [facility] RAIL W/MATTRSS INTERMIT A4351 OUMAR OUMAR URIN 8 [facility] CATH; E CENTERS E CENTERS STRAIGHT TIP W/WO COAT EA DAY CARE S5100 [facility] SERVICES [address] [place] [address] ADULT; ELDER ELDER PER 15 CARE CARE MINUTES DAY CARE S[address] ADULT; ELDER ELDER PER 15 CARE CARE MINUTES DAY CARE S5[address] ADULT; ELDER ELDER PER 15 CARE CARE MINUTES DAY CARE S5[address] ADULT; ELDER ELDER PER 15 CARE CARE MINUTES DAY CARE S5[address] ADULT; ELDER ELDER PER 15 CARE CARE MINUTES DAY CARE S5[address] ADULT; ELDER ELDER PER 15 CARE CARE MINUTES DAY CARE S5[address] ADULT; ELDER ELDER PER 15 CARE CARE MINUTES DAY CARE S5[address] ADULT; ELDER ELDER PER 15 CARE CARE MINUTES DAY CARE S5[address] ADULT; ELDER ELDER PER 15 CARE CARE MINUTES ADLT SZD T4528 [facility] 8 HOME HOME INCONT HEALTH HEALTH PROD AGENCY AGENCY UNDWEAR XTRA LG EA DAY CARE S[address] ADULT; ELDER ELDER PER 15 [...] MON OWN PT EA DAY CARE S[address] ADULT; ELDER ELDER PER 15 CARE CARE MINUTES DAY CARE S5[address] ADULT; ELDER ELDER PER 15 CARE CARE MINUTES DAY CARE S5[address] ADULT; ELDER ELDER PER 15 CARE CARE MINUTES DAY CARE S5[address] ADULT; ELDER ELDER PER 15 CARE CARE MINUTES DAY CARE S5[address] ADULT; ELDER ELDER PER 15 CARE CARE MINUTES DAY CARE S5[address] ADULT; ELDER ELDER PER 15 CARE CARE MINUTES DAY CARE S5[address] ADULT; ELDER ELDER PER 15 CARE CARE MINUTES DAY CARE S5[address] ADULT; ELDER ELDER PER 15 CARE CARE MINUTES DAY CARE S5[address] ADULT; ELDER ELDER PER 15 CARE CARE MINUTES DAY CARE S5[address] ADULT; ELDER ELDER PER 15 CARE CARE MINUTES DAY CARE S5[address] ADULT; ELDER ELDER PER 15 CARE CARE MINUTES DAY CARE S5[address] ADULT; ELDER ELDER PER 15 CARE CARE MINUTES DAY CARE S5[address] ADULT; ELDER ELDER PER 15 CARE CARE MINUTES DAY CARE S5[address] ADULT; ELDER ELDER PER 15 CARE CARE MINUTES DAY CARE S5[address] ADULT; ELDER ELDER PER 15 CARE CARE MINUTES DAY CARE S5[address] ADULT; ELDER ELDER PER 15 CARE CARE MINUTES DAY CARE S5[address] ADULT; ELDER ELDER PER 15 CARE CARE MINUTES DAY CARE S5[address] ADULT; ELDER ELDER PER 15 CARE CARE MINUTES DAY CARE S5[address] ADULT; ELDER ELDER PER 15 CARE CARE MINUTES DAY CARE S5[address] ADULT; ELDER ELDER PER 15 CARE CARE MINUTES DAY CARE S5[address] ADULT; ELDER ELDER PER 15 CARE CARE MINUTES OPHTH 80039 ROBER, ROBER, MEDICAL 8 KIT A KIT A XM&JOELLE COMPRE NEW PT 1/> VST DAY CARE S[address] ADULT; ELDER ELDER PER 15 CARE CARE MINUTES TRAPEZE E0940 YOSELYN SCHROEDER 8 HOME MED HOME MED FREESTAND EQUIP. EQUIP. [facility] COMPLETE WITH GRAB [facility] HOS BED E0260 YOSELYN TOPETE SEMI-ELEC 8 HOME MED HOME MED W/ANY EQUIP. EQUIP. TYPE SIDE [facility] RAIL W/MATTRSS DAY CARE S[address] ADULT; ELDER ELDER PER 15 CARE CARE MINUTES DAY CARE S[address] ADULT; ELDER ELDER PER 15 CARE CARE MINUTES DAY CARE S5[address] ADULT; ELDER ELDER PER 15 CARE CARE MINUTES DAY CARE S5[address] ADULT; ELDER ELDER PER 15 CARE CARE MINUTES DAY CARE S5[address] ADULT; ELDER ELDER PER 15 CARE CARE MINUTES DAY CARE S5[address] ADULT; ELDER ELDER PER 15 CARE CARE MINUTES DAY CARE S5[address] ADULT; ELDER ELDER PER 15 CARE CARE MINUTES INTERMIT A4351 OUMAR SENA 8 [facility] CATH; E CENTERS E CENTERS STRAIGHT TIP W/WO COAT EA DAY CARE S[address] ADULT; ELDER ELDER PER 15 CARE CARE MINUTES DAY CARE S[address] ADULT; ELDER ELDER PER 15 CARE CARE MINUTES DAY CARE S5[address] ADULT; ELDER ELDER PER 15 CARE CARE MINUTES DAY CARE S5[address] ADULT; ELDER ELDER PER 15 CARE CARE MINUTES DAY CARE S5[address] ADULT; ELDER ELDER PER 15 CARE CARE MINUTES DAY CARE S[address] ADULT; ELDER ELDER PER 15 CARE CARE MINUTES DAY CARE S5[address] ADULT; ELDER ELDER PER 15 CARE CARE MINUTES INCONTINE T4541 [facility] 8 HOME HOME PRODUCT HEALTH HEALTH DISPOSABL AGENCY AGENCY E UNDPAD LARGE EA ADLT SZD T4528 [facility] 8 HOME HOME INCONT HEALTH HEALTH PROD AGENCY AGENCY UNDWEAR XTRA LG EA DAY CARE S[address] ADULT; ELDER ELDER PER 15 CARE CARE MINUTES DAY CARE S[address] ADULT; ELDER ELDER PER 15 CARE CARE MINUTES DAY CARE S[address] ADULT; ELDER ELDER PER 15 CARE CARE MINUTES TRAPEZE E0940 YOSELYN SCHROEDER 8 HOME MED HOME MED FREESTAND EQUIP. EQUIP. [facility] COMPLETE WITH ART [facility] HOS BED E0260 YOSELYN TOPETE SEMI-ELEC 8 HOME MED HOME MED W/ANY EQUIP. EQUIP. TYPE SIDE [facility] RAIL W/MATTRSS DAY CARE S[address] ADULT; ELDER ELDER PER 15 CARE CARE MINUTES DAY CARE S[address] ADULT; ELDER ELDER PER 15 CARE CARE MINUTES DAY CARE S[address] ADULT; ELDER ELDER PER 15 CARE CARE MINUTES 3D 13544 [place] [facility] 8 MEDICAL YONY Patrick IMAGING W/INTERP& ASSOCIATE [place] [address] RAMANDEEP SABILLON TROPONIN 8 [facility] QUANTITAT INC INC TAYLER BLOOD 36045 RAMANDEEP SABILOLN COUNT 8 [facility] COMPLETE INC INC AUTO&AUTO DIFRNTL WBC GROUND A[address] [facility] 8 AMBULANCE AMBULANCE PER SERVICE SERVICE STATUTE MILE DRUG 35876 RAMANDEEP SABILLON [facility]AY 8 [facility] VALPROIC INC INC DIPROPYLA CETIC ACID TOTAL ECG 26836 RAMANDEEP STODDARD, ROUTINE 8 [facility] W/LEAST PROF SERV 12 LDS [place] [address] JAYLENE BURRIS, HEAD/BRAI 8 MEDICAL YONY Patrick N W/O IMAGING CONTRAST [place]OCI[place] [address] RAMANDEEP SABILLON THER 8 [facility] PROPH/DX INC INC 1ST >1 HR PROTHROMB 32370 RAMANDEEP SABILLON IN TIME 8 [facility] INC INC THROMBOPL 17741 RAMANDEEP SABILLON ASTIN 8 [facility] TIME INC INC PARTIAL PLASMA/WH OLE BLOOD ECG 07954 RAMANDEEP SABILLON ROUTINE 8 [facility] ECG INC INC W/LEAST 12 LDS TRCG ONLY W/O I&R CREATINE 85135 RAMANDEEP SABILLON KINASE 8 [facility] TOTAL INC INC COMPREHEN 83927 RAMANDEEP SABILLON SIVE 8 [facility] METABOLIC INC INC PANEL CREATINE 89068 RAMANDEEP SABILLON KINASE MB 8 [facility] FRACTION INC INC ONLY AMB A0427 [facility] SERVICE 8 AMBULANCE AMBULANCE ALS SERVICE SERVICE EMERGENCY TRANSPORT LEVEL 1 DAY CARE S5100 RAMANDEEP SABILLON SERVICES [address] [place] [address] ADULT; ELDER ELDER PER 15 CARE CARE MINUTES DAY CARE S5100 [facility] [address] [place] [address] ADULT; ELDER ELDER PER 15 CARE CARE MINUTES DAY CARE S5100 [facility] [address] [place] [address] ADULT; ELDER ELDER PER 15 CARE CARE MINUTES DAY CARE S5100 [facility] [address] [place] [address] ADULT; ELDER ELDER PER 15 CARE CARE MINUTES BLD GLU A4253 M E D M E D TEST/REAG 8 SUPPLIES SUPPLIES T STRIPS HOME BLD GLU MON-50 DAY CARE S[address] ADULT; ELDER ELDER PER 15 CARE CARE MINUTES DAY CARE S[address] ADULT; ELDER ELDER PER 15 CARE CARE MINUTES TRAPEZE E0940 [facility] TOPETE BAR 8 HOME MED HOME MED FREESTAND EQUIP. EQUIP. ING [employer] COMPLETE WITH GRAB BAR HOS BED E0260 YOSELYN TOPETE SEMI-ELEC 8 HOME MED HOME MED W/ANY EQUIP. EQUIP. TYPE SIDE [facility] RAIL W/MATTRSS DAY CARE S[address] ADULT; ELDER ELDER PER 15 CARE CARE MINUTES DAY CARE S[address] ADULT; ELDER ELDER PER 15 CARE CARE MINUTES DAY CARE S[address] ADULT; ELDER ELDER PER 15 CARE CARE MINUTES MEDICAL 51433 [facility] [address] [place] [address] ASSMT&IVN BANK ACCT TJ INDIV EACH 15 [place] DAY CARE S[address] ADULT; ELDER ELDER PER 15 CARE CARE MINUTES DAY CARE S[address] ADULT; ELDER ELDER PER 15 CARE CARE MINUTES ADLT SZD T4528 [facility] 8 HOME HOME INCONT HEALTH HEALTH PROD AGENCY AGENCY UNDWEAR XTRA LG EA DAY CARE S[address] ADULT; ELDER ELDER PER 15 CARE CARE MINUTES DAY CARE S[address] ADULT; ELDER ELDER PER 15 CARE CARE MINUTES DAY CARE S[address] ADULT; ELDER ELDER PER 15 CARE CARE MINUTES DAY CARE S[address] ADULT; ELDER ELDER PER 15 CARE CARE MINUTES TRAPEZE E0940 YOSELYN SCHROEDER 8 HOME MED HOME MED FREESTAND EQUIP. EQUIP. ING [employer] COMPLETE WITH [facility] HOS BED E0260 YOSELYN GUAJARDORELL SEMI-ELEC 8 HOME MED HOME MED W/ANY EQUIP. EQUIP. TYPE [facility] RAIL W/MATTRSS DAY CARE S[address] ADULT; ELDER ELDER PER 15 CARE CARE MINUTES DAY CARE S[address] ADULT; ELDER ELDER PER 15 CARE CARE MINUTES DAY CARE S[address] ADULT; ELDER ELDER PER 15 CARE CARE MINUTES DAY CARE S[address] ADULT; ELDER ELDER PER 15 CARE CARE MINUTES DAY CARE S[address] ADULT; ELDER ELDER PER 15 CARE CARE MINUTES DAY CARE S5[address] ADULT; ELDER ELDER PER 15 CARE CARE MINUTES DAY CARE S[address] ADULT; ELDER ELDER PER 15 CARE CARE MINUTES INTERMIT [id number] OUMAR SENA 8 [facility] CATH; E CENTERS E CENTERS STRAIGHT TIP W/WO COAT EA DAY CARE S5[address] ADULT; ELDER ELDER PER 15 CARE CARE MINUTES DAY CARE S5[address] ADULT; ELDER ELDER PER 15 CARE CARE MINUTES DAY CARE S5[address] ADULT; ELDER ELDER PER 15 CARE CARE MINUTES DAY CARE S5[address] ADULT; ELDER ELDER PER 15 CARE CARE MINUTES DAY CARE S5[address] ADULT; ELDER ELDER PER 15 CARE CARE MINUTES DAY CARE S[address] ADULT; ELDER ELDER PER 15 CARE CARE MINUTES DAY CARE S[address] ADULT; ELDER ELDER PER 15 CARE CARE MINUTES DAY CARE S[address] ADULT; ELDER ELDER PER 15 CARE CARE MINUTES DAY CARE S5[address] ADULT; ELDER ELDER PER 15 CARE CARE MINUTES DAY CARE S5[address] ADULT; ELDER ELDER PER 15 CARE CARE MINUTES DAY CARE S5[address] ADULT; ELDER ELDER PER 15 CARE CARE MINUTES DAY CARE S5[address] ADULT; ELDER ELDER PER 15 CARE CARE MINUTES DAY CARE S[address] ADULT; ELDER ELDER PER 15 CARE CARE MINUTES TRAPEZE [id number] YOSELYN SCHROEDER 8 HOME MED HOME MED FREESTAND EQUIP. [facility]QU[facility]. [employer] [facility] COMPLETE WITH [facility] [id number] YOSELYN TOPETE SEMI-ELEC 8 HOME MED HOME MED W/ANY EQUIP. EQUIP. TYPE SIDE [facility] RAIL W/MATTRSS DAY CARE S[address] ADULT; ELDER ELDER PER 15 CARE CARE MINUTES AIR PRESS [id number] YOSELYN TOPETE PAD 8 HOME MED HOME MED MATTRSS EQUIP. EQUIP. STD [facility] MATTRSS LENGTH&WI DTH DAY CARE S[address] ADULT; ELDER ELDER PER 15 CARE CARE MINUTES DAY CARE S5[address] ADULT; ELDER ELDER PER 15 CARE CARE MINUTES DAY CARE S[address] ADULT; ELDER ELDER PER 15 CARE CARE MINUTES DAY CARE S[address] ADULT; ELDER ELDER PER 15 CARE CARE MINUTES DAY CARE S5[address] ADULT; ELDER ELDER PER 15 CARE CARE MINUTES DAY CARE S5[address] ADULT; ELDER ELDER PER 15 CARE CARE MINUTES ADLT SZD [id number] [facility] HOME HOME [facility] PROD AGENCY AGENCY UNDWEAR XTRA LG EA DAY CARE S[address] ADULT; ELDER ELDER PER 15 CARE CARE MINUTES DAY CARE S5[address] ADULT; ELDER ELDER PER 15 CARE CARE MINUTES DAY CARE S[address] ADULT; ELDER ELDER PER 15 CARE CARE MINUTES BLD GLU A4253 M E D M E D TEST/REAG 8 SUPPLIES SUPPLIES T STRIPS HOME BLD GLU SAT-50 DAY CARE S[address] ADULT; ELDER ELDER PER 15 CARE CARE MINUTES DAY CARE S5[address] ADULT; ELDER ELDER PER 15 CARE CARE MINUTES DAY CARE S5[address] ADULT; ELDER ELDER PER 15 CARE CARE MINUTES DAY CARE S[address] ADULT; ELDER ELDER PER 15 CARE CARE MINUTES DAY CARE S[address] ADULT; ELDER ELDER PER 15 CARE CARE MINUTES DAY CARE S[address] ADULT; ELDER ELDER PER 15 CARE CARE MINUTES DAY CARE S5[address] ADULT; ELDER ELDER PER 15 CARE CARE MINUTES DAY CARE S[address] ADULT; ELDER ELDER PER 15 CARE CARE MINUTES DAY CARE S[address] ADULT; ELDER ELDER PER 15 CARE CARE MINUTES INTERMIT A4351 OUMAR SENA 8 [facility]; E CENTERS E CENTERS STRAIGHT TIP W/WO COAT EA DAY CARE S[address] ADULT; ELDER ELDER PER 15 CARE CARE MINUTES DAY CARE S5[address] ADULT; ELDER ELDER PER 15 CARE CARE MINUTES DAY CARE S[address] ADULT; ELDER ELDER PER 15 CARE CARE MINUTES DAY CARE S5[address] ADULT; ELDER ELDER PER 15 CARE CARE MINUTES DAY CARE S[address] ADULT; ELDER ELDER PER 15 CARE CARE MINUTES ADLT SZD [id number] [facility] 8 HOME HOME INCONT HEALTH HEALTH PROD AGENCY AGENCY UNDWEAR XTRA LG EA DAY CARE S[address] ADULT; ELDER ELDER PER 15 CARE CARE MINUTES DAY CARE S5[address] ADULT; ELDER ELDER PER 15 CARE CARE MINUTES DAY CARE S5100 [facility] [address] [place] [address] ADULT; ELDER ELDER PER 15 CARE CARE MINUTES DAY CARE S5100 [facility] [address] [place] [address] ADULT; ELDER ELDER PER 15 CARE CARE MINUTES DAY CARE S[address] [facility] [address] [place] [address] ADULT; ELDER ELDER PER 15 CARE CARE MINUTES DAY CARE S5100 [facility] [address] [place] [address] ADULT; ELDER ELDER PER 15 CARE CARE MINUTES DAY CARE S5100 [facility] [address] [place] [address] ADULT; ELDER ELDER PER 15 CARE CARE MINUTES DAY CARE S5100 [facility] [address] [place] [address] ADULT; ELDER ELDER PER 15 CARE CARE MINUTES DAY CARE S5100 [facility] [address] [place] [address] ADULT; ELDER ELDER PER 15 CARE CARE MINUTES DAY CARE S5100 [facility] [address] ADULT; ELDER ELDER PER 15 CARE CARE MINUTES DAY CARE S5100 [facility] [address] ADULT; ELDER ELDER PER 15 CARE CARE MINUTES DAY CARE S5100 [facility] [address] ADULT; ELDER ELDER PER 15 CARE CARE MINUTES DAY CARE S5100 [facility] [address] ADULT; ELDER ELDER PER 15 CARE CARE MINUTES DAY CARE S[address] ADULT; ELDER ELDER PER 15 CARE CARE MINUTES DAY CARE S[address] [facility] [address] ADULT; ELDER ELDER PER 15 CARE CARE MINUTES DAY CARE S5100 [facility] [address] ADULT; ELDER ELDER PER 15 CARE CARE MINUTES DAY CARE S5100 [facility] [address] [place] [address] ADULT; ELDER ELDER PER 15 CARE CARE MINUTES DAY CARE S5100 [facility] [address] [place] [address] ADULT; ELDER ELDER PER 15 CARE CARE MINUTES DAY CARE S5100 [facility] [address] [place] [address] ADULT; ELDER ELDER PER 15 CARE CARE MINUTES INCONTINE T4541 [facility] 8 HOME HOME [facility] HEALTH DISPOSABL AGENCY AGENCY E UNDPAD LARGE EA ADLT SZD T4528 [facility] 8 HOME HOME INCONT HEALTH HEALTH PROD AGENCY AGENCY UNDWEAR XTRA LG EA DAY CARE S5100 [facility] 8 [facility] ADULT; ELDER ELDER PER 15 CARE CARE MINUTES DAY CARE S5100 [facility] 8 [facility] ADULT; ELDER ELDER PER 15 CARE CARE MINUTES Encounters Encounter Start End Date Code Location Performer Type Date Emergency JORGE Vázquez (ER) 3 15:31 3 17:[address] [facility] T [facility] - [facility] 0 [facility], 0 0 [facility] BOSS [facility], 0 0 DIST [facility] BOSS [facility], 0 0 HOME OUTPATIEN HEALTH T AGENCY HOME [facility], 0 0 DIST OTHER [facility] DEPT CAMP BOSS OFFICE 34876 EHSAN GALARZAEN 9 9 LEANDRA Hernandez T VISIT PSC 15 MINUTES OFFICE 68227 TERRY MCGREGOR 9 9 LEANDRA PETIT T VISIT 5 PSC MINUTES HOME [facility], 9 9 DIST OTHER [facility] DEPT [facility]AMP BOSS HOME [facility], 9 9 HOME OUTPATIEN HEALTH T AGENCY OFFICE 60660 TIM SCHULTE OUTTATIEN 9 9 LYNNE MUNGUIA T VISIT SERV 15 FOUNDATIO MINUTES HOME [facility], 9 9 DIST OTHER HEALTH DEPT CAMP BOSS HOME [facility], 9 9 HOME OUTPATIEN HEALTH T [facility] - 9 9 [facility] T HOME [facility], 9 9 DIST OTHER HEALTH DEPT CAMP BOSS OFFICE 95022 TIM SCHULTE, CONSULTAT 9 9 LYNNE MUNGUIA ION SERV NEW/ESTAB FOUNDATIO PATIENT 60 MIN HOME [facility], 9 9 DIST OTHER HEALTH DEPT CAMP BOSS OFFICE 98280 Mary HANDY OUTPATIEN 9 9 LEANDRA Messer T VISIT PSC 15 MINUTES OFFICE 48477 Mary HANDY OUTPATIEN 9 9 LEANDRA Messer T VISIT PSC 15 MINUTES HOME [facility], 9 9 DIST OTHER HEALTH DEPT CAMP BOSS HOME [facility], 9 9 HOME OUTPATIEN HEALTH T [facility] - [address] [facility] T HOME [facility], 9 9 DIST OTHER HEALTH DEPT CAMP BOSS HOME [facility], 9 9 DIST OTHER HEALTH DEPT CAMP BOSS HOME [facility], 9 9 HOME OUTPATIEN HEALTH T AGENCY OFFICE 04039 TERRY GALARZA 9 9 LEANDRA Hernandez T VISIT PSC 15 MINUTES HOME [facility], 9 9 DIST OTHER HEALTH DEPT CAMP BOSS OFFICE 30983 TERRY MCGREGOR 9 9 LEANDRA PETIT T VISIT 5 PSC MINUTES OFFICE 11581 TERRY GALARZA 9 9 LEANDRA Hernandez T VISIT PSC 15 MINUTES HOME [facility], 9 9 DIST OTHER HEALTH DEPT CAMP BOSS HOME [facility], 9 9 HOME OUTPATIEN HEALTH T AGENCY OFFICE 16318 [facility] OUTPATIEN 9 9 HEALTH CO HEALTH T VISIT [facility] 15 BANK ACCT MINUTES HOME [facility], 9 9 DIST OTHER HEALTH DEPT CAMP BOSS HOME [facility], 9 9 DIST OTHER HEALTH DEPT CAMP BOSS OFFICE 27856 Mary HANDY OUTPATIEN 9 9 LEANDRA Rhodes VISIT PSC 15 MINUTES HOME [facility], 9 9 HOME OUTPATIEN HEALTH T AGENCY HOME [facility], 9 9 DIST OTHER HEALTH DEPT CAMP BOSS OFFICE 19766 Mary HANDY OUTPATIEN 9 9 LEANDRA Rhodes VISIT 5 PSC MINUTES HOME [facility], 9 9 HOME OUTPATIEN HEALTH T AGENCY HOME [facility], 9 9 DIST OTHER HEALTH DEPT CAMP BOSS OFFICE 55696 Mary HANDY OUTPATIEN 9 9 LEANDRA Rhodes VISIT 5 PSC MINUTES HOME [facility], 9 9 DIST OTHER HEALTH DEPT CAMP BOSS HOME [facility], 9 9 HOME OUTPATIEN HEALTH T AGENCY OFFICE 30500 Mary HANDY OUTPATIEN 9 9 LEANDRA Rhodes VISIT 5 PSC MINUTES OFFICE 12592 Mary HANDY OUTPATIEN 9 9 LEANDRA Rhodes VISIT PSC 15 MINUTES HOME [facility], 9 9 DIST OTHER HEALTH DEPT CAMP BOSS OFFICE 59198 Mary HANDY OUTPATIEN 9 9 LEANDRA Rhodes VISIT 5 PSC MINUTES HOME [facility], 9 9 DIST OTHER HEALTH DEPT CAMP BOSS HOME [facility], 9 9 HOME OUTPATIEN HEALTH T AGENCY HOME [facility], 8 8 DIST OTHER HEALTH DEPT CAMP BOSS HOME [facility], 8 8 HOME OUTPATIEN HEALTH T AGENCY HOME [facility], 8 8 DIST OTHER HEALTH DEPT CAMP BOSS OFFICE 75845 Mary HANDY OUTPATIEN 8 8 LEANDRA Messer T VISIT 5 PSC MINUTES HOME [facility], 8 8 DIST OTHER HEALTH DEPT CAMP BOSS HOME [facility], 8 8 HOME OUTPATIEN HEALTH T AGENCY HOME [facility], 8 8 DIST OTHER HE[facility] DEPT CAMP [facility]OSS [facility], 8 8 DIST OTHER HE[facility] DEPT CAMP [facility], 8 8 HOME OUTPATIEN HEALTH T AGENCY OFFICE 68888 Mary HANDY OUTPATIJOSE [facility] 8 8 LEANDRA Messer T VISIT PSC 15 MINUTES HOSPITAL [facility] - 8 8 [facility] INC T EMERGENCY 20974 [facility] 8 8 [facility] DEPARTMEN INC T VISIT HIGH/URGE NT SEVERITY EMERGENCY 45983 JEEVAN ORTIZ, 8 8 [facility] DEPARTMEN CORPORATI O T VISIT ON MODERATE SEVERITY HOME [facility] HEALTH, 8 8 DIST OTHER HEALTH DEPT CAMP BOSS HOME [facility] HEALTH, 8 8 DIST OTHER HEALTH DEPT CAMP BOSS OFFICE 52563 Mary HANDY 8 8 LEANDRA Messer T VISIT PSC 15 MINUTES HOME [facility] HEALTH, 8 8 HOME OUTPATIEN HEALTH T AGENCY HOME [facility]ALTH, 8 8 DIST OTHER HEALTH DEPT CAMP BOSS HOME [facility] HEALTH, 8 8 HOME OUTPATIEN HEALTH T AGENCY HOME [facility], 8 8 DIST OTHER HEALTH DEPT CAMP BOSS OFFICE 56180 [facility] OUTPATIEN 8 8 HEALTH CO HEALTH T VISIT [facility] 10 BANK ACCT MINUTES HOME [facility] HEALTH, 8 8 DIST OTHER HEALTH DEPT CAMP BOSS [facility], [facility] 8 HOME OUTPATIEN HEALTH T AGENCY OFFICE 90922 [facility] [place] [facility] T VISIT [facility] 15 BANK ACCT MINUTES HOME [facility], [facility] 8 DIST OTHER HEALTH DEPT CAMP BOSS HOME [facility], 8 8 HOME OUTPATIEN HEALTH T AGENCY [facility], [facility] 8 DIST OTHER HEALTH DEPT CAMP BOSS
--- OUTSIDE RECORDS SUMMARY | 2016-12-16 19:57 | External Medical Summary Rpt ---
Author Author , Organization [employer] Address Unknown Phone Unavailable Care Team Providers Care Cashier And Salesperson Name Role Phone ALBA STODDARD, Unavailable Unavailable ALBA STODDARD ANTONIO, Unavailable Unavailable [facility] Unavailable Unavailable SERVICE, [facility] Unavailable Unavailable CENTERS, [facility] Un[facility] Unavailable INC, [facility] Unavailable Unavailable CENTER, [facility] Unavailable Unavailable CARE, [facility] Unavailable Unavailable INC, [facility] KIT RICHTER, Unavailable Unavailable KIT RICHTER [facility] Unavailable Unavailable [facility], [facility] Unavailable Unavailable HOLDING, [facility] Skyler Penaloza SUPPLIES, M Regis Penaloza Unavailable Unavailable SUPPLIES YONY BURRIS, Unavailable Unavailable YONY BURRIS STEPHEN A, Unavailable Unavailable ALBA MANLEY MARC D, Unavailable Unavailable FLAKITA LEAL [facility] Unavailable Unavailable ASSOCIATES,[facility], [facility] DAMASO ALMANZAR, Unavailable Unavailable DAMASO ALMANZAR BABATUNDE O, Unavailable Unavailable BARNEY ORTIZ [facility] Unavailable Unavailable [facility], 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 [facility] Unavailable Unavailable AGENCY, [facility] Mary MOBLEY WRIGHT, Unavailable Unavailable Mary C Purpose Continuity of Care Document - 08-20-2007 through 2016 Problems Code Diagnosis DOS Provider Status 72276 DIAB W/O 11-11-2009 Skyler Penaloza MENTION SUPPLIES COMP TYPE II/UNS TYPE UNCNTRL 67318 UNSPECIFIED 11-10-2009 [facility] E 4389 UNSPEC LATE 11-07-2009 [facility] CEREBRVASC AGENCY DZ DUE CEREBRVASC DZ 7197 DIFFICULTY 11-07-2009 [facility] 39659 OTHER 11-07-2009 [facility] FATIGUE AGENCY 437 OTHER 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[facility] [place] CEREBROVASC ULAR DISEASE 5950 ACUTE 10-24-2009 [facility] 48027 INCOMPLETE 10-24-2009 [facility] EMPTYING INC 4019 UNSPECIFIED 10-17-2009 [facility] HYPERTENSIO FELLER OPERATOR N 496 CHRONIC 10-17-2009 [facility] DE[facility] OBSTRUCTION FELLER OPERATOR NEC 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, OSIS OF FLAKITA D NAIL 7295 PAIN IN 10-07-2009 [facility], SOFT FLAKITA D TISSUES OF LIMB 86392 DIAB W/O 08-02-2009 [facility] COMP TYPE AMERIC II/UNS NOT HOLDING STATED UNCNTRL 96451 OTH FORM 08-02-2009 [facility] EPILEPSY & AMERIC RECUR HOLDING SEIZUR NO INTRACT EPIL 4011 ESSENTIAL 08-02-2009 [facility] HYPERTENSIO AMERIC N, BENIGN HOLDING 4659 ACUTE URIS 08-02-2009 Mary COATS [facility] UNSPECIFIED SITE V5861 LONG-TERM 08-02-2009 Mary MOBLEY (CURRENT) PSC USE OF ANTICOAGULA NTS 5990 URINARY 08-01-2009 [facility] TRACT AMERIC INFECTION HOLDING SITE NOT SPECIFIED 93261 UNSPECIFIED 06-29-2009 [facility] N V0481 NEED 06-01-2009 [facility] PROPHYLA[facility]I HEALTH CENTER VACCINATION &INOCULATIO N FLU 2724 OTHER AND 05-26-2009 [facility] UNSPECIFIED [facility] HYPERLIPIDE ROXANNA 25960 BACKGROUND 04-12-2009 ALFIE RICHTER A RETINOPATHY 21328 HYPERTROPHY 03-31-2009 [facility] W/UR OBST & INC OTH LUTS 4329 UNSPECIFIED 03-10-2009 [facility] L HEMORRHAGE 7365 GENU 03-10-2009 [facility]UM [facility] 82084 OTHER 03-10-2009 [facility] DEFORMITY [facility] INC OF ANKLE AND FOOT OTHER 4779 ALLERGIC 01-20-2009 Mary MOBLEY RHINITIS PSC CAUSE UNSPECIFIED 3449 UNSPECIFIED 12-03-2008 [facility] 436 ACUTE BUT 12-03-2008 [facility] CEREBROVASC ULAR DISEASE 27058 OTHER 11-24-2008 Mary MOBLEY CONVULSIONS PSC E9479 UNSPEC 11-24-2008 [facility] RX/MEDICINA AMERIC L SBST[place] [address] MALIG HTN 10-08-2008 [facility] WITHOUT [facility] HEART FAIL 4589 UNSPECIFIED 10-08-2008 [facility] 4660 ACUTE 10-08-2008 [facility] 3320 PARALYSIS 10-01-2008 [facility] 5964 ATONY OF 10-01-2008 [facility] AGENCY V5789 OTHER 10-01-2008 [facility] SPECIFIED HEALTH REHABILITAT AGENCY ION PROCEDURE OTHER 17868 UNSPECIFIED 07-13-2008 [facility] CENTERS 7802 SYNCOPE AND 02-24-2008 Mary MOBLEY COLLAPSE [facility] 7804 DIZZINESS 02-23-2008 [facility] GIDDINESS SERVICE V653 DIETARY 01-21-2008 [facility] SURVEILLANC HEALTH E AND [facility]AL COUNSELING BANK ACCT V7791 SCREENING 11-06-2007 [facility] FOR LIPOID HEALTH DISORDERS CENTRAL BANK ACCT 7806 FEVER & OTH 09-02-2007 [facility] DISTURBANCE S TEMP REG Immunization Name Date Route CVX Reacti Commen Provid Is Given on t er Refuse d IIV3 [place] No VACCIN 2008 [facility] 0.5 ML DOSAGE IM USE IIV3 [place] No VACCIN 2008 [facility] 0.5 ML DOSAGE IM USE IIV3 [place] No VACCIN 2007 [facility] 0.5 ML DOSAGE IM USE Procedures Procedure DOS Code Location Performer Comment DAY CARE S5100 [facility] [address] [facility] ADULT; ELDER ELDER PER 15 CARE CARE MINUTES DAY CARE S5100 [facility] [address] [facility] ADULT; ELDER ELDER PER 15 CARE CARE MINUTES DAY CARE S5100 [facility] [address] [facility] ADULT; ELDER ELDER PER 15 CARE CARE MINUTES BLD GLU A4253 M E D M E D TEST/REAG 0 SUPPLIES SUPPLIES T STRIPS HOME BLD GLU MON-50 LANCETS A4259 M E D M E D PER BOX 0 SUPPLIES SUPPLIES OF 100 INTERMIT A4351 [facility] [place] [facility]; E CENTERS E CENTERS STRAIGHT TIP W/WO COAT EA DAY CARE S5100 [facility] [address] [facility] ADULT; ELDER ELDER PER 15 CARE CARE MINUTES DAY CARE S5100 [facility] [address] [facility] ADULT; ELDER ELDER PER 15 CARE CARE MINUTES DAY CARE S5100 [facility] [address] [facility] ADULT; ELDER ELDER PER 15 CARE CARE MINUTES INCONTINE T4541 [facility] PRODUCT HEALTH HEALTH DISPOSABL AGENCY AGENCY E UNDPAD LARGE EA ADLT SZD T4528 [facility] 0 HOME HOME INCONT HEALTH HEALTH PROD AGENCY AGENCY UNDWEAR XTRA LG EA DAY CARE S5100 [facility] [address] [facility] ADULT; ELDER ELDER PER 15 CARE CARE MINUTES DAY CARE S5100 [facility] [address] [facility] ADULT; ELDER ELDER PER 15 CARE CARE MINUTES DAY CARE S5100 [facility] [address] [facility] ADULT; ELDER ELDER PER 15 CARE CARE MINUTES DAY CARE S5100 [facility] [address] [facility] ADULT; ELDER ELDER PER 15 CARE CARE MINUTES DAY CARE S5100 [facility] [address] [facility] ADULT; ELDER ELDER PER 15 CARE CARE MINUTES SUSCEPTIB 49173 [facility] LTY STDY 0 [facility] ANTIMICRB INC INC IAL MICRO/AGA R DILUTJ CULTURE 19925 [facility] BACTERIAL 0 [facility] INC INC QUANTTATI VE COLONY COUNT URINE CULTURE 64947 [facility] BCT 0 [facility] ISOL&PRSM INC INC PTV ID ISOLATE EA URINE DAY CARE S5100 [facility] [address] [facility] ADULT; ELDER ELDER PER 15 CARE CARE MINUTES DAY CARE S5100 [facility] [address] [facility] ADULT; ELDER ELDER PER 15 CARE CARE MINUTES DAY CARE S5100 [facility] [address] [facility] ADULT; ELDER ELDER PER 15 CARE CARE MINUTES DAY CARE S5100 [facility] [address] [facility] ADULT; ELDER ELDER PER 15 CARE CARE MINUTES DAY CARE S5100 [facility] [address] [facility] ADULT; ELDER ELDER PER 15 CARE CARE MINUTES DAY CARE S5100 [facility] [address] [facility] ADULT; ELDER ELDER PER 15 CARE CARE MINUTES DAY CARE S5100 [facility] [address] [facility] ADULT; ELDER ELDER PER 15 CARE CARE MINUTES DAY CARE S5100 [facility] [address] [facility] ADULT; ELDER ELDER PER 15 CARE CARE MINUTES INTERMIT A4351 [facility] URIN 0 [facility] CATH; E CENTERS E CENTERS STRAIGHT TIP W/WO COAT EA DAY CARE S5100 [facility] [address] [facility] ADULT; ELDER ELDER PER 15 CARE CARE MINUTES DAY CARE S5100 [facility] [address] [facility] ADULT; ELDER ELDER PER 15 CARE CARE MINUTES DAY CARE S5100 [facility] [address] [facility] ADULT; ELDER ELDER PER 15 CARE CARE MINUTES DAY CARE S5100 [facility] [address] [facility] ADULT; ELDER ELDER PER 15 CARE CARE MINUTES DAY CARE S5100 [facility] [address] [facility] ADULT; ELDER ELDER PER 15 CARE CARE MINUTES DAY CARE S5100 [facility] [address] [facility] ADULT; ELDER ELDER PER 15 CARE CARE MINUTES ADLT SZD T4528 [facility] PR[facility] AGENCY AGENCY UNDWEAR XTRA LG EA DAY CARE S5100 [facility] SERVICES [address] [facility] ADULT; ELDER ELDER PER 15 CARE CARE MINUTES DAY CARE S5100 [facility] [address] [facility] ADULT; ELDER ELDER PER 15 CARE CARE MINUTES DAY CARE S5100 [facility] SERVICES [address] [facility] ADULT; ELDER ELDER PER 15 CARE CARE MINUTES DAY CARE S5100 [facility] SERVICES [address] [facility] ADULT; ELDER ELDER PER 15 CARE CARE MINUTES DAY CARE S5100 [facility] [address] [facility] ADULT; ELDER ELDER PER 15 CARE CARE MINUTES DAY CARE S5100 [facility] [address] [facility] ADULT; ELDER ELDER PER 15 CARE CARE MINUTES COLLECTIO 20550 Mary MANLEY, N VENOUS 9 LEANDRA Hernandez BLOOD PSC VENIPUNCT URE IM ADM 95507 Mary MANLEY, PRQ ID 9 LEANDRA Hernandez SUBQ/IM PSC NJXS 1 VACCINE BASIC 24245 [facility] METABOLIC 9 AMERIC AMERIC PANEL HOLDING HOLDING CALCIUM TOTAL INJ J0702 Mary MANLEY, BETAMETHA 9 LEANDRA Hernandez SONE PSC ACETATE & PHOSPHATE 3 MG DRUG 59607 [facility] ASSAY 9 AMERIC AMERIC VALPROIC HOLDING HOLDING DIPROPYLA CETIC ACID TOTAL PROTHROMB 49125 Mary MANLEY, IN TIME 9 LEANDRA Hernandez PSC GLUCOSE 51479 Mary MANLEY QUANTITAT 9 LEANDRA Hernandez TAYLER BLOOD PSC XCPT REAGENT STRIP HEMOGLOBI 05591 Mary MANLEY, N 9 LEANDRA Hernandez GLYCOSYLA PSC SUSAN A1C CUL BACT 24758 [facility] AEROBIC 9 AMERIC AMERIC ADDL HOLDING HOLDING METHS DEFINITIV E EA ISOL SUSCEPTIB 09498 [facility] LTY STDY 9 AMERIC AMERIC ANTIMICRB HOLDING HOLDING IAL MICRO/AGA R DILUTJ URINLS 27207 A Ayde ANGUIANOJENELLE, DIP 9 LEANDRA WHITESIDE DAMASO STICK/TAB PSC LET REAGNT NON-AUTO MICRSCPY CULTURE 23629 [facility] BACTERIAL 9 AMERIC AMERIC HOLDING HOLDING QUANTTATI VE COLONY COUNT URINE CULTURE 96510 [facility] BCT 9 AMERIC AMERIC ISOL&PRSM HOLDING HOLDING PTV ID ISOLATE EA URINE DAY CARE S[address] ADULT; ELDER ELDER PER 15 CARE CARE MINUTES DAY CARE S[address] ADULT; ELDER ELDER PER 15 CARE CARE MINUTES DAY CARE S[address] ADULT; ELDER ELDER PER 15 CARE CARE MINUTES DAY CARE S[address] ADULT; ELDER ELDER PER 15 CARE CARE MINUTES DAY CARE S[address] ADULT; ELDER ELDER PER 15 CARE CARE MINUTES ADLT SZD T4528 [facility] HOME HOME INCONT HEALTH HEALTH PROD AGENCY AGENCY UNDWEAR XTRA LG EA DEBRIDEME 51567 PAWT, MEL, SHIKHA NAIL 9 FLAKITA Penaloza ANY METHOD 6/> DAY CARE S5100 [facility] SERVICES [address] [place] [address] ADULT; ELDER ELDER PER 15 CARE CARE MINUTES DAY CARE S5100 [facility] [address] [place] [address] ADULT; ELDER ELDER PER 15 CARE CARE MINUTES INTERMIT A4351 [facility] SENA 9 [facility] CATH; E CENTERS E CENTERS STRAIGHT TIP W/WO COAT EA DAY CARE S5100 [facility] [address] [place] [address] ADULT; ELDER ELDER PER 15 CARE CARE MINUTES DAY CARE S5100 [facility] [address] [place] [address] ADULT; ELDER ELDER PER 15 CARE CARE MINUTES DAY CARE S5100 [facility] [address] [place] [address] ADULT; ELDER ELDER PER 15 CARE CARE MINUTES DAY CARE S5100 [facility] [address] [place] [address] ADULT; ELDER ELDER PER 15 CARE CARE MINUTES DAY CARE S5100 [facility] [address] [place] [address] ADULT; ELDER ELDER PER 15 CARE CARE MINUTES DAY CARE S5100 [facility] [address] [place] [address] ADULT; ELDER ELDER PER 15 CARE CARE MINUTES DAY CARE S5100 [facility] [address] [place] [address] ADULT; ELDER ELDER PER 15 CARE CARE MINUTES DAY CARE S5100 [facility] [address] [place] [address] ADULT; ELDER ELDER PER 15 CARE CARE MINUTES DAY CARE S5100 [facility] [address] [place] [address] ADULT; ELDER ELDER PER 15 CARE CARE MINUTES DAY CARE S5100 [facility] [address] [place] [address] ADULT; ELDER ELDER PER 15 CARE CARE MINUTES DAY CARE S5100 [employer] [facility] [address] [place] [address] ADULT; ELDER ELDER PER 15 CARE CARE MINUTES DAY CARE S5100 [facility] [address] [place] [address] ADULT; ELDER ELDER PER 15 CARE CARE MINUTES DAY CARE S5100 [employer] [facility] [address] [place] [address] ADULT; ELDER ELDER PER 15 CARE CARE MINUTES DAY CARE S5100 [facility] [address] [place] [address] ADULT; ELDER ELDER PER 15 CARE CARE MINUTES INCONTINE T4541 [facility] N[facility] 9 HOME HOME PRODUCT HE[facility] HEALTH DISPOSABL AGENCY AGENCY E UNDPAD LARGE EA DAY CARE S5100 [facility] [address] [place] [address] ADULT; ELDER ELDER PER 15 CARE CARE MINUTES DAY CARE S5100 [facility] [address] [place] [address] ADULT; ELDER ELDER PER 15 CARE CARE MINUTES IIV3 14874 [facility] VACCINE 9 [place] [email or web address] [facility] S[facility] CENTER VIRUS 0.5 ML DOSAGE IM USE ADMINISTR G0008 [facility] ATION OF 9 [place] [facility] IN[facility] CENTER CENTER VIRUS VACCINE ADLT SZD T4528 [facility] 9 HOME HOME INCONT HEALTH HEALTH PROD AGENCY AGENCY UNDWEAR XTRA LG EA DAY CARE S5100 [facility] SERVICES [address] [place] [address] ADULT; ELDER ELDER PER 15 CARE CARE MINUTES DAY CARE S5100 [facility] [address] ADULT; ELDER ELDER PER [place] [address] [facility] THYROID 9 [facility] STIMULATI INC INC NG HORMONE TSH COLLECTIO 78650 [facility] N VENOUS 9 [facility] BLOOD INC INC VENIPUNCT URE BASIC 21754 [facility] METABOLIC 9 [facility] PANEL INC INC CALCIUM TOTAL INTERMIT A4351 [facility] CENT[facility] E CENTERS STRAIGHT TIP W/WO COAT EA DAY CARE S5100 [facility] [address] [place] [address] ADULT; ELDER ELDER PER 15 CARE CARE MINUTES DAY CARE S5100 [facility] [address] [place] [address] ADULT; ELDER ELDER PER 15 CARE CARE MINUTES DAY CARE S5100 [facility] [address] [place] [address] ADULT; ELDER ELDER PER 15 CARE CARE MINUTES DAY CARE S5100 [facility] [address] [place] [address] ADULT; ELDER ELDER PER 15 CARE CARE MINUTES DAY CARE S5100 [facility] [address] [place] [address] ADULT; ELDER ELDER PER 15 CARE CARE MINUTES DAY CARE S[address] ADULT; ELDER ELDER PER 15 CARE CARE MINUTES DAY CARE S[address] ADULT; ELDER ELDER PER 15 CARE CARE MINUTES DAY CARE S[address] ADULT; ELDER ELDER PER 15 CARE CARE MINUTES REPL CRUZ A4235 M E D M E D LITHIUM 9 SUPPLIES SUPPLIES MED NECES SHERYL BG MON OWN PT EA SPRING-PO A4258 M E D M E D WERED 9 SUPPLIES SUPPLIES DEVICE FOR LANCET EACH BLD GLU A4253 M E D M E D TEST/REAG 9 SUPPLIES SUPPLIES T STRIPS HOME BLD GLU MON-50 NORMAL A4256 M E D M E D LOW AND 9 SUPPLIES SUPPLIES HIGH CALIBRATO R SOLUTION/ CHIPS LANCETS A4259 M E D M E D PER BOX 9 SUPPLIES SUPPLIES OF 100 IIV3 74643 [facility] VACCINE 9 [facility] CENTER VIRUS 0.5 ML DOSAGE IM USE ADMINISTR G0008 [facility] ATION OF 9 [facility] CENTER VIRUS VACCINE DAY CARE S[address] ADULT; ELDER ELDER PER 15 CARE CARE MINUTES DAY CARE S[address] ADULT; ELDER ELDER PER 15 CARE CARE MINUTES DAY CARE S[address] ADULT; ELDER ELDER PER 15 CARE CARE MINUTES DAY CARE S[address] ADULT; ELDER ELDER PER 15 CARE CARE MINUTES DAY CARE S[address] ADULT; ELDER ELDER PER 15 CARE CARE MINUTES DAY CARE S[address] ADULT; ELDER ELDER PER 15 CARE CARE MINUTES DAY CARE S[address] ADULT; ELDER ELDER PER 15 CARE CARE MINUTES DAY CARE S[address] ADULT; ELDER ELDER PER 15 CARE CARE MINUTES DAY CARE S[address] ADULT; ELDER ELDER PER 15 CARE CARE MINUTES DAY CARE S[address] ADULT; ELDER ELDER PER 15 CARE CARE MINUTES INTERMIT A4351 [facility] SE[facility] 9 [facility]; E CENTERS E CENTERS STRAIGHT TIP W/WO COAT EA DAY CARE S5100 [facility] S[facility] [address] ADULT; ELDER ELDER PER 15 CARE CARE MINUTES DAY CARE S5100 [facility] [address] ADULT; ELDER ELDER PER 15 CARE CARE MINUTES DAY CARE S5100 [facility] [address] ADULT; ELDER ELDER PER 15 CARE CARE MINUTES DAY CARE S5100 [facility] SAB[facility] [address] ADULT; ELDER ELDER PER 15 CARE CARE MINUTES DAY CARE S5100 [facility] [address] ADULT; ELDER ELDER PER 15 CARE CARE MINUTES ADLT SZD T4528 [facility] PROD AGENCY AGENCY UNDWEAR XTRA LG EA DAY CARE S5100 [facility] [address] ADULT; ELDER ELDER PER 15 CARE CARE MINUTES DAY CARE S5100 [facility] S[facility] [address] ADULT; ELDER ELDER PER 15 CARE CARE MINUTES DAY CARE S5100 [facility] [address] ADULT; ELDER ELDER PER 15 CARE CARE MINUTES [facility] [address] ROBER, ROBER, MEDICAL 9 KIT A KIT A XM&JOELLE COMPRHNSV ESTAB PT 1/> DAY CARE S5100 [facility] [address] ADULT; ELDER ELDER PER 15 CARE CARE MINUTES DAY CARE S5100 [facility] [address] ADULT; ELDER ELDER PER 15 CARE CARE MINUTES DAY CARE S5100 [facility] RAM[facility] [address] ADULT; ELDER ELDER PER 15 CARE CARE MINUTES DAY CARE S5100 [facility] S[facility] [address] ADULT; ELDER ELDER PER 15 CARE CARE MINUTES DAY CARE S5100 [facility] [address] ADULT; ELDER ELDER PER 15 CARE CARE MINUTES COLLECTIO 70140 [facility] N VENOUS 9 [facility] BLOOD INC INC VENIPUNCT URE BASIC 73773 [facility] METABOLIC 9 [facility] [place] [address] [facility] RETROPERI 9 [facility] INC REAL TIME W/IMAGE COMPLETE DAY CARE S5100 [facility] [address] ADULT; ELDER ELDER PER 15 CARE CARE MINUTES DAY CARE S[address] ADULT; ELDER ELDER PER 15 CARE CARE MINUTES DAY CARE S[address] [address] ADULT; ELDER ELDER PER 15 CARE CARE MINUTES DAY CARE S[address] ADULT; ELDER ELDER PER 15 CARE CARE MINUTES DAY CARE S[address] ADULT; ELDER ELDER PER 15 CARE CARE MINUTES DAY CARE S[address] ADULT; ELDER ELDER PER 15 CARE CARE MINUTES DAY CARE S[address] ADULT; ELDER ELDER PER 15 CARE CARE MINUTES DAY CARE S[address] ADULT; ELDER ELDER PER 15 CARE CARE MINUTES DAY CARE S[address] ADULT; ELDER ELDER PER 15 CARE CARE MINUTES DAY CARE S[address] ADULT; ELDER ELDER PER 15 CARE CARE MINUTES DAY CARE S[address] ADULT; ELDER ELDER PER 15 CARE CARE MINUTES ADD LW L2270 [facility] EXT 9 BRACE BRACE VARUS/TARI PROSTH PROSTH ROBERTA WILMER INC INC STRAP PAD/LINE PAD DIAB ONLY [id number] [facility] FIT CSTM 9 BRACE BRACE PREP&SPL PROSTH PROSTH SHOE MX INC INC DNSITY INSRT TRANS L3620 [facility] 1 9 BRACE BRACE SHOE-ANOT PROSTH PROSTH HER SLD INC INC STIRRUP EXISTING REPAIR L4205 [facility] ORTHOTIC 9 BRACE BRACE DEVC PROSTH PROSTH LABOR INC INC COMPONENT PER 15 MIN DAY CARE S[address] ADULT; ELDER ELDER PER 15 CARE CARE MINUTES DAY CARE S5100 [address] ADULT; ELDER ELDER PER 15 CARE CARE MINUTES DAY CARE S5100 [address] ADULT; ELDER ELDER PER 15 CARE CARE MINUTES DAY CARE S5100 [address] ADULT; ELDER ELDER PER 15 CARE CARE MINUTES DAY CARE S5100 [address] ADULT; ELDER ELDER PER 15 CARE CARE MINUTES ADLT SZD [id number] [facility] HOME HOME INCONT HEALTH HEALTH PROD AGENCY AGENCY UNDWEAR XTRA LG EA DAY CARE S[address] ADULT; ELDER ELDER PER 15 CARE CARE MINUTES INTERMIT A4351 OUM[facility] OUMAR URIN 9 [facility] CATH; E CENTERS E CENTERS STRAIGHT TIP W/WO COAT EA URINLS 09815 A PHYLICIA TAVAREZ 9 LEANDRA Hernandez STICK/TAB PSC LET REAGNT NON-AUTO MICRSCPY CULTURE 39358 [facility] BACTERIAL 9 [employer] HOLD[employer] QUANTTATI VE COLONY COUNT URINE DAY CARE S[address] ADULT; ELDER ELDER PER 15 CARE CARE MINUTES DAY CARE S5100 [address] ADULT; ELDER ELDER PER 15 CARE CARE MINUTES DAY CARE S5[address] ADULT; ELDER ELDER PER 15 CARE CARE MINUTES DAY CARE S5[address] ADULT; ELDER ELDER PER 15 CARE CARE MINUTES CULTURE 84732 [facility] BACTERIAL 9 [employer] HOLD[employer] QUANTTATI VE COLONY COUNT URINE SUSCEPTIB 29414 [facility] LTY STDY 9 [employer]IC [employer]IC ANTIMICRB HOLDING HOLDING IAL MICRO/AGA R DILUTJ CULTURE 50462 [facility] BCT 9 [employer]IC [employer] ISOL&PRSM HOLDING HOLDING PTV ID ISOLATE EA URINE URINLS 77379 A PHYLICIA DANIELS 9 LEANDRA PETIT STICK/TAB PSC LET REAGNT NON-AUTO MICRSCPY CUL BACT 79310 [facility] AEROBIC 9 [employer] ADDL HOLDING HOLDING METHS DEFINITIV E EA ISOL DAY CARE S[address] ADULT; ELDER ELDER PER 15 CARE CARE MINUTES DAY CARE S[address] ADULT; ELDER ELDER PER 15 CARE CARE MINUTES DAY CARE S[address] ADULT; ELDER ELDER PER 15 CARE CARE MINUTES DAY CARE S5[address] ADULT; ELDER ELDER PER 15 CARE CARE MINUTES DAY CARE S[address] ADULT; ELDER ELDER PER 15 CARE CARE MINUTES DAY CARE S[address] ADULT; ELDER ELDER PER 15 CARE CARE MINUTES DAY CARE S[address] ADULT; ELDER ELDER PER 15 CARE CARE MINUTES DAY CARE S[address] ADULT; ELDER ELDER PER 15 CARE CARE MINUTES DAY CARE S[address] ADULT; ELDER ELDER PER 15 CARE CARE MINUTES INTERMIT A4351 OUMAR SENA 9 [facility] CATH; E CENTERS E CENTERS STRAIGHT TIP W/WO COAT EA DAY CARE S[address] ADULT; ELDER ELDER PER 15 CARE CARE MINUTES DAY CARE S[address] ADULT; ELDER ELDER PER 15 CARE CARE MINUTES DAY CARE S5100 [address] ADULT; ELDER ELDER PER 15 CARE CARE MINUTES DAY CARE S5[address] ADULT; ELDER ELDER PER 15 CARE CARE MINUTES DAY CARE S[address] ADULT; ELDER ELDER PER 15 CARE CARE MINUTES DAY CARE S[address] ADULT; ELDER ELDER PER 15 CARE CARE MINUTES ADLT SZD T4528 [facility] PROD AGENCY AGENCY UNDWEAR XTRA LG EA DAY CARE S5[address] ADULT; ELDER ELDER PER 15 CARE CARE MINUTES DAY CARE S5100 [address] ADULT; ELDER ELDER PER 15 CARE CARE MINUTES DAY CARE S5[address] ADULT; ELDER ELDER PER 15 CARE CARE MINUTES DAY CARE S5100 [facility] [address] [place] [address] ADULT; ELDER ELDER PER 15 CARE CARE MINUTES DAY CARE S5100 [facility] [address] [place] [address] ADULT; ELDER ELDER PER 15 CARE CARE MINUTES DAY CARE S5100 [facility] [address] [place] [address] ADULT; ELDER ELDER PER 15 CARE CARE MINUTES DAY CARE S5100 [facility] [address] [place] [address] ADULT; ELDER ELDER PER 15 CARE CARE MINUTES DAY CARE S5100 [facility] [address] [place] [address] ADULT; ELDER ELDER PER 15 CARE CARE MINUTES DAY CARE S5100 [facility] [address] [place] [address] ADULT; ELDER ELDER PER 15 CARE CARE MINUTES DAY CARE S5100 [facility] [address] [place] [address] ADULT; ELDER ELDER PER 15 CARE CARE MINUTES DAY CARE S5100 RAMANDEEP RAMANDEEP [address] ADULT; ELDER ELDER PER 15 CARE CARE MINUTES DAY CARE S[address] ADULT; ELDER ELDER PER 15 CARE CARE MINUTES DAY CARE S5100 [facility] [address] [place] [address] ADULT; ELDER ELDER PER 15 CARE CARE MINUTES DAY CARE S[address] ADULT; ELDER ELDER PER 15 CARE CARE MINUTES DAY CARE S[address] ADULT; ELDER ELDER PER 15 CARE CARE MINUTES DAY CARE S5100 RAMANDEEP RAMANDEEP [address] ADULT; ELDER ELDER PER 15 CARE CARE MINUTES DAY CARE S5100 [facility] [address] [place] [address] ADULT; ELDER ELDER PER 15 CARE CARE MINUTES DAY CARE S5100 [facility] [address] [place] [address] ADULT; ELDER ELDER PER 15 CARE CARE MINUTES DAY CARE S5100 [facility] [address] [place] [address] ADULT; ELDER ELDER PER 15 CARE CARE MINUTES TRAPEZE E0940 YOSELYN SCHROEDER 9 HOME MED HOME MED FREESTAND EQUIP. EQUIP. ING [facility] COMPLETE WITH ART SCHROEDER HOS BED E0260 YOSELYN TOPETE SEMI-ELEC 9 HOME MED HOME MED W/ANY EQUIP. EQUIP. TYPE SIDE [facility] RAIL W/MATTRSS DAY CARE S[address] ADULT; ELDER ELDER PER 15 CARE CARE MINUTES DAY CARE S5[address] ADULT; ELDER ELDER PER 15 CARE CARE MINUTES DAY CARE S5[address] ADULT; ELDER ELDER PER 15 CARE CARE MINUTES DAY CARE S5[address] ADULT; ELDER ELDER PER 15 CARE CARE MINUTES DAY CARE S5[address] ADULT; ELDER ELDER PER 15 CARE CARE MINUTES DAY CARE S5[address] ADULT; ELDER ELDER PER 15 CARE CARE MINUTES COLLECTIO 38037 Mary HANDY VENOUS 9 LEANDRA Messer BLOOD PSC VENIPUNCT URE DRUG 16014 LAB [facility] LAB ANIK[facility] ASSAY 9 AMERIC AMERIC VALPROIC HOLDING HOLDING DIPROPYLA CETIC ACID TOTAL BASIC 66834 LAB [facility] METABOLIC 9 AMERIC AMERIC PANEL HOLDING HOLDING CALCIUM TOTAL PROTHROMB 85126 Mary HANDY IN TIME 9 LEANDRA Messer PSC ADLT SZD T4528 [facility] HOME HOME INCONT HEALTH HEALTH PROD AGENCY AGENCY UNDWEAR XTRA LG EA DAY CARE S5[address] ADULT; ELDER ELDER PER 15 CARE CARE MINUTES DAY CARE S5100 [address] ADULT; ELDER ELDER PER 15 CARE CARE MINUTES DAY CARE S5[address] ADULT; ELDER ELDER PER 15 CARE CARE MINUTES DAY CARE S5[address] ADULT; ELDER ELDER PER 15 CARE CARE MINUTES URINLS 00661 Mary HANDY DIP 9 LEANDRA Messer STICK/TAB PSC LET REAGNT NON-AUTO MICRSCPY INCONTINE T4541 [facility] 9 HOME HOME PRODUCT HEALTH HEALTH DISPOSABL AGENCY AGENCY E UNDPAD LARGE EA DAY CARE S5[address] ADULT; ELDER ELDER PER 15 CARE CARE MINUTES DAY CARE S5[address] ADULT; ELDER ELDER PER 15 CARE CARE MINUTES DAY CARE S5100 [facility] [address] [place] [address] ADULT; ELDER ELDER PER 15 CARE CARE MINUTES DAY CARE S5100 [facility] [address] [place] [address] ADULT; ELDER ELDER PER 15 CARE CARE MINUTES TRAPEZE E0940 YOSELYN YOSELYN BAR 9 HOME MED HOME MED FREESTAND EQUIP. EQUIP. ING [facility] COMPLETE WITH GRAB BAR HOS BED E0260 YOSELYN YOSELYN SEMI-ELEC 9 HOME MED HOME MED W/ANY EQUIP. EQUIP. TYPE SIDE [facility] RAIL W/MATTRSS DAY CARE S5100 [facility] [address] [place] [address] ADULT; ELDER ELDER PER 15 CARE CARE MINUTES DAY CARE S5100 [facility] [address] [place] [address] ADULT; ELDER ELDER PER 15 CARE CARE MINUTES DAY CARE S5[address] ADULT; ELDER ELDER PER 15 CARE CARE MINUTES DAY CARE S5[address] ADULT; ELDER ELDER PER 15 CARE CARE MINUTES DAY CARE S5[address] ADULT; ELDER ELDER PER 15 CARE CARE MINUTES DAY CARE S5[address] ADULT; ELDER ELDER PER 15 CARE CARE MINUTES DAY CARE S5[address] ADULT; ELDER ELDER PER 15 CARE CARE MINUTES DAY CARE S5[address] ADULT; ELDER ELDER PER 15 CARE CARE MINUTES DAY CARE S5[address] ADULT; ELDER ELDER PER 15 CARE CARE MINUTES DAY CARE S5100 [facility] [address] [place] [address] ADULT; ELDER ELDER PER 15 CARE CARE MINUTES DAY CARE S5100 [facility] [address] [place] [address] ADULT; ELDER ELDER PER 15 CARE CARE MINUTES SUSCEPTIB 66981 LAB [facility] AN[facility] LTY STDY 9 AMERIC AMERIC ANTIMICRB HOLDING HOLDING IAL MICRO/AGA R DILUTJ CUL BACT 33931 LAB [facility] AEROBIC 9 AMERIC AMERIC ADDL HOLDING HOLDING METHS DEFINITIV E EA ISOL CULTURE 37219 LAB ANIK[facility] AN[facility] BACTERIAL 9 AMERIC AMERIC HOLDING HOLDING QUANTTATI VE COLONY COUNT URINE CULTURE 04117 LAB [facility] AN[facility] BCT 9 AMERIC AMERIC ISOL&PRSM HOLDING HOLDING PTV ID ISOLATE EA URINE DAY CARE S[address] ADULT; ELDER ELDER PER 15 CARE CARE MINUTES URINLS 07260 Mary HANDY DIP 9 LEANDRA Messer STICK/TAB PSC LET REAGNT NON-AUTO MICRSCPY DAY CARE S[address] ADULT; ELDER ELDER PER 15 CARE CARE MINUTES DAY CARE S5[address] ADULT; ELDER ELDER PER 15 CARE CARE MINUTES DAY CARE S5[address] ADULT; ELDER ELDER PER 15 CARE CARE MINUTES CERVICAL L0172 PROSTHETI PROSTHETI COLLAR 9 C&ORTHOTI C&ORTHOTI SEMI-RIGI C C D FOAM ASSOCIATE ASSOCIATE TWO [employer] SCall[employer] S,LLC PREFAB DAY CARE S[address] ADULT; ELDER ELDER PER 15 CARE CARE MINUTES DAY CARE S5[address] ADULT; ELDER ELDER PER 15 CARE CARE MINUTES TRAPEZE E0940 YOSELYN TOPETE BAR 9 HOME MED HOME MED FREESTAND EQUIP. EQUIP. [facility] COMPLETE WITH GRAB BAR HOS BED E0260 YOSELYN TOPETE SEMI-ELEC 9 HOME MED HOME MED W/ANY EQUIP. EQUIP. TYPE SIDE [facility] RAIL W/MATTRSS ADLT SZD T4528 [facility] 9 HOME HOME INCONT HEALTH HEALTH PROD AGENCY AGENCY UNDWEAR XTRA LG EA DAY CARE S[address] ADULT; ELDER ELDER PER 15 CARE CARE MINUTES DAY CARE S5[address] ADULT; ELDER ELDER PER 15 CARE CARE MINUTES DAY CARE S5[address] ADULT; ELDER ELDER PER 15 CARE CARE MINUTES DAY CARE S5[address] ADULT; ELDER ELDER PER 15 CARE CARE MINUTES DAY CARE S5[address] ADULT; ELDER ELDER PER 15 CARE CARE MINUTES URINLS 82084 A Ayde MOBLEY, A DIP 9 LEANDRA WHITESIDE C STICK/TAB PSC LET REAGNT NON-AUTO MICRSCPY INTERMIT A4351 OUMARWILLY OSEGUERA NATHEN 9 HEALTHCAR HEALTHCAR CATH; E CENTERS E CENTERS STRAIGHT TIP W/WO COAT EA DAY CARE S5[address] ADULT; ELDER ELDER PER 15 CARE CARE MINUTES DAY CARE S5[address] ADULT; ELDER ELDER PER 15 CARE CARE MINUTES DAY CARE S5[address] ADULT; ELDER ELDER PER 15 CARE CARE MINUTES DAY CARE S5[address] ADULT; ELDER ELDER PER 15 CARE CARE MINUTES DAY CARE S5[address] ADULT; ELDER ELDER PER 15 CARE CARE MINUTES DAY CARE S5[address] ADULT; ELDER ELDER PER 15 CARE CARE MINUTES DAY CARE S5[address] ADULT; ELDER ELDER PER 15 CARE CARE MINUTES CUL BACT 02451 LAB [facility] ANIK[facility] AEROBIC 9 AMERIC AMERIC ADDL HOLDING HOLDING METHS DEFINITIV E EA ISOL SUSCEPTIB 29795 LAB AN[facility] LAB ANIK[facility] LTY STDY 9 AMERIC AMERIC ANTIMICRB HOLDING HOLDING IAL MICRO/AGA R DILUTJ URINLS 99419 A Ayde MOBLEY A DIP 9 LEANDRA Messer STICK/TAB PSC LET REAGNT NON-AUTO MICRSCPY CULTURE 09293 LAB ANIK[facility] LAB ANIKA BACTERIAL 9 AMERIC AMERIC HOLDING HOLDING QUANTTATI VE COLONY COUNT URINE CULTURE 55914 LAB ANIK[facility] LAB ANIKA BCT 9 AMERIC AMERIC ISOL&PRSM HOLDING HOLDING PTV ID ISOLATE EA URINE TRAPEZE E0940 YOSELYN SCHROEDER 9 HOME MED HOME MED FREESTAND EQUIP. EQUIP. [facility] COMPLETE WITH GRAB BAR HOS BED E0260 YOSELYN TOPETE SEMI-ELEC 9 HOME MED HOME MED W/ANY EQUIP. EQUIP. TYPE SIDE [facility] RAIL W/MATTRSS DAY CARE S[address] ADULT; ELDER ELDER PER 15 CARE CARE MINUTES DAY CARE S5[address] ADULT; ELDER ELDER PER 15 CARE CARE MINUTES DAY CARE S5[address] ADULT; ELDER ELDER PER 15 CARE CARE MINUTES DAY CARE S5[address] ADULT; ELDER ELDER PER 15 CARE CARE MINUTES DAY CARE S5[address] ADULT; ELDER ELDER PER 15 CARE CARE MINUTES DAY CARE S5[address] ADULT; ELDER ELDER PER 15 CARE CARE MINUTES DAY CARE S5[address] ADULT; ELDER ELDER PER 15 CARE CARE MINUTES INTERMIT A4351 OUMAR SENA 9 HEALTHCAR HEALTHCAR CATH; E CENTERS E CENTERS STRAIGHT TIP W/WO COAT EA DAY CARE S5[address] ADULT; ELDER ELDER PER 15 CARE CARE MINUTES DAY CARE S5[address] ADULT; ELDER ELDER PER 15 CARE CARE MINUTES ADLT SZD T4528 [facility] 9 HOME HOME [facility] HEALTH HEALTH PROD AGENCY AGENCY UNDWEAR XTRA LG EA DAY CARE S[address] ADULT; ELDER ELDER PER 15 CARE [...] HOME BLD GLU MON-50 DAY CARE S5[address] ADULT; ELDER ELDER PER 15 CARE CARE MINUTES DAY CARE S5[address] ADULT; ELDER ELDER PER 15 CARE CARE MINUTES DAY CARE S5[address] ADULT; ELDER ELDER PER 15 CARE CARE MINUTES CULTURE 37344 LAB ANIKA LAB ANIKA BCT 8 AMERIC AMERIC ISOL&PRSM HOLDING HOLDING PTV ID ISOLATE EA URINE DAY CARE S5[address] ADULT; ELDER ELDER PER 15 CARE CARE MINUTES SUSCEPTIB 08922 LAB ANIK[facility] LAB ANIKA LTY STDY 8 AMERIC AMERIC ANTIMICRB HOLDING HOLDING IAL MICRO/AGA R DILUTJ CUL BACT 24609 LAB ANIKA LAB ANIKA AEROBIC 8 AMERIC AMERIC ADDL HOLDING HOLDING METHS DEFINITIV E EA ISOL CULTURE 21241 LAB ANIKA LAB ANIKA BACTERIAL 8 AMERIC AMERIC HOLDING HOLDING QUANTTATI VE COLONY COUNT URINE DAY CARE S[address] ADULT; ELDER ELDER PER 15 CARE CARE MINUTES TRAPEZE E0940 YOSELYN TOPETE BAR 8 HOME MED HOME MED FREESTAND EQUIP. EQUIP. [facility] COMPLETE WITH GRAB BAR HOS BED E0260 YOSELYN TOPETE SEMI-ELEC 8 HOME MED HOME MED W/ANY EQUIP. EQUIP. TYPE SIDE [facility] RAIL W/MATTRSS DAY CARE S[address] ADULT; ELDER ELDER PER 15 CARE CARE MINUTES DAY CARE S[address] ADULT; ELDER ELDER PER 15 CARE CARE MINUTES DAY CARE S5[address] ADULT; ELDER ELDER PER 15 CARE CARE MINUTES DAY CARE S5[address] ADULT; ELDER ELDER PER 15 CARE CARE MINUTES DAY CARE S5[address] ADULT; ELDER ELDER PER 15 CARE CARE MINUTES DAY CARE S5[address] ADULT; ELDER ELDER PER 15 CARE CARE MINUTES DAY CARE S5[address] ADULT; ELDER ELDER PER 15 CARE CARE MINUTES DAY CARE S5[address] ADULT; ELDER ELDER PER 15 CARE CARE MINUTES DAY CARE S5[address] ADULT; ELDER ELDER PER 15 CARE CARE MINUTES INTERMIT A4351 OUMAR SENA 8 HEALTHCAR HEALTHCAR CATH; E CENTERS E CENTERS STRAIGHT TIP W/WO COAT EA DAY CARE S5[address] ADULT; ELDER ELDER PER 15 CARE CARE MINUTES DAY CARE S5100 [facility] [address] [place] [address] ADULT; ELDER ELDER PER 15 CARE CARE MINUTES DAY CARE S5100 [facility] [address] [place] [address] ADULT; ELDER ELDER PER 15 CARE CARE MINUTES DAY CARE S5100 [facility] [address] [place] [address] ADULT; ELDER ELDER PER 15 CARE CARE MINUTES DAY CARE S5100 [facility] [address] [place] [address] ADULT; ELDER ELDER PER 15 CARE CARE MINUTES TRAPEZE E0940 YOSELYN TOPETE BAR 8 HOME MED HOME MED FREESTAND EQUIP. EQUIP. [facility] COMPLETE WITH GRAB BAR HOS BED E0260 YOSELYN TOPETE SEMI-ELEC 8 HOME MED HOME MED W/ANY EQUIP. EQUIP. TYPE SIDE [facility] RAIL W/MATTRSS DAY CARE S5100 [facility] [address] [place] [address] ADULT; ELDER ELDER PER 15 CARE CARE MINUTES DAY CARE S[address] ADULT; ELDER ELDER PER 15 CARE CARE MINUTES DAY CARE S5[address] ADULT; ELDER ELDER PER 15 CARE CARE MINUTES DAY CARE S5[address] ADULT; ELDER ELDER PER 15 CARE CARE MINUTES DAY CARE S5[address] ADULT; ELDER ELDER PER 15 CARE CARE MINUTES ADLT SZD T4528 [facility] 8 HOME HOME [facility] HEALTH HEALTH PROD AGENCY AGENCY UNDWEAR XTRA LG EA DAY CARE S5100 [facility] [address] [place] [address] ADULT; ELDER ELDER PER 15 CARE CARE MINUTES DAY CARE S5100 [facility] [address] [place] [address] ADULT; ELDER ELDER PER 15 CARE CARE MINUTES DAY CARE S5100 [facility] [address] [place] [address] ADULT; ELDER ELDER PER 15 CARE CARE MINUTES DAY CARE S5100 [facility] [address] [place] [address] ADULT; ELDER ELDER PER 15 CARE CARE MINUTES DAY CARE S5100 [facility] [address] [place] [address] ADULT; ELDER ELDER PER 15 CARE CARE MINUTES DAY CARE S5[address] ADULT; ELDER ELDER PER 15 CARE CARE MINUTES URINLS 83759 Mary HANDY 8 LEANDRA Messer STICK/TAB PSC LET REAGNT NON-AUTO MICRSCPY IIV3 44831 RAMANDEEP SABILLON VACCINE [address] [place] [address] SPLIT CENTER CENTER VIRUS 0.5 ML DOSAGE IM USE DAY CARE S5[address] ADULT; ELDER ELDER PER 15 CARE CARE MINUTES ADMINISTR G0008 RAMANDEEP SABILLON ATION OF 8 [facility] CENTER VIRUS VACCINE DAY CARE S5[address] ADULT; ELDER ELDER PER 15 CARE CARE MINUTES DAY CARE S5[address] ADULT; ELDER ELDER PER 15 CARE CARE MINUTES DAY CARE S5[address] ADULT; ELDER ELDER PER 15 CARE CARE MINUTES DAY CARE S5[address] ADULT; ELDER ELDER PER 15 CARE CARE MINUTES DAY CARE S5[address] ADULT; ELDER ELDER PER 15 CARE CARE MINUTES DAY CARE S5[address] ADULT; ELDER ELDER PER 15 CARE CARE MINUTES CULTURE 76944 LAB ANIKA LAB ANIKA BCT 8 AMERIC AMERIC ISOL&PRSM HOLDING HOLDING PTV ID ISOLATE EA URINE CULTURE 27127 LAB ANIKA LAB ANIKA BACTERIAL 8 AMERIC AMERIC HOLDING HOLDING QUANTTATI VE COLONY COUNT URINE SUSCEPTIB 58334 LAB ANIKA LAB ANIKA LTY STDY 8 AMERIC AMERIC ANTIMICRB HOLDING HOLDING IAL MICRO/AGA R DILUTJ CUL BACT 77945 LAB ANIKA LAB ANIKA AEROBIC 8 AMERIC AMERIC ADDL HOLDING HOLDING METHS DEFINITIV E EA ISOL TRAPEZE E0940 YOSELYN SCHROEDER 8 HOME MED HOME MED FREESTAND EQUIP. EQUIP. ING [facility] COMPLETE WITH GRAB BAR HOS BED E0260 YOSELYN TOPETE SEMI-ELEC 8 HOME MED HOME MED W/ANY EQUIP. EQUIP. TYPE SIDE [facility] RAIL W/MATTRSS INTERMIT A4351 OUMAR OUMAR URIN 8 HEALTHCAR HEALTHCAR CATH; E CENTERS E CENTERS STRAIGHT TIP W/WO COAT EA DAY CARE S5[address] ADULT; ELDER ELDER PER 15 CARE CARE MINUTES DAY CARE S5[address] ADULT; ELDER ELDER PER 15 CARE CARE MINUTES DAY CARE S5[address] ADULT; ELDER ELDER PER 15 CARE CARE MINUTES DAY CARE S5[address] ADULT; ELDER ELDER PER 15 CARE CARE MINUTES DAY CARE S5[address] ADULT; ELDER ELDER PER 15 CARE CARE MINUTES DAY CARE S5[address] ADULT; ELDER ELDER PER 15 CARE CARE MINUTES DAY CARE S5[address] ADULT; ELDER ELDER PER 15 CARE CARE MINUTES DAY CARE S5[address] ADULT; ELDER ELDER PER 15 CARE CARE MINUTES DAY CARE S5[address] ADULT; ELDER ELDER PER 15 CARE CARE MINUTES ADLT SZD T4528 [facility] 8 HOME HOME [facility] HEALTH PROD AGENCY AGENCY UNDWEAR XTRA LG EA REPL CRUZ A4235 M E D M [...] SUPPLIES SUPPLIES OF 100 DAY CARE S5[address] ADULT; ELDER ELDER PER 15 CARE CARE MINUTES DAY CARE S5[address] ADULT; ELDER ELDER PER 15 CARE CARE MINUTES DAY CARE S5[address] ADULT; ELDER ELDER PER 15 CARE CARE MINUTES DAY CARE S5[address] ADULT; ELDER ELDER PER 15 CARE CARE MINUTES DAY CARE S5100 [facility] [address] [place] [address] ADULT; ELDER ELDER PER 15 CARE CARE MINUTES DAY CARE S5100 [facility] [address] [place] [address] ADULT; ELDER ELDER PER 15 CARE CARE MINUTES DAY CARE S5100 [facility] [address] [place] [address] ADULT; ELDER ELDER PER 15 CARE CARE MINUTES DAY CARE S5100 [facility] [address] [place] [address] ADULT; ELDER ELDER PER 15 CARE CARE MINUTES DAY CARE S5100 [facility] [address] [place] [address] ADULT; ELDER ELDER PER 15 CARE CARE MINUTES DAY CARE S5100 [facility] [address] [place] [address] ADULT; ELDER ELDER PER 15 CARE CARE MINUTES DAY CARE S5100 [facility] [address] [place] [address] ADULT; ELDER ELDER PER 15 CARE CARE MINUTES DAY CARE S5100 [facility] [address] [place] [address] ADULT; ELDER ELDER PER 15 CARE CARE MINUTES DAY CARE S5100 [address] ADULT; ELDER ELDER PER 15 CARE CARE MINUTES DAY CARE S5100 [facility] [address] [place] [address] ADULT; ELDER ELDER PER 15 CARE CARE MINUTES DAY CARE S5100 [facility] [address] [place] [address] ADULT; ELDER ELDER PER 15 CARE CARE MINUTES DAY CARE S5100 [facility] [address] [place] [address] ADULT; ELDER ELDER PER 15 CARE CARE MINUTES DAY CARE S[address] ADULT; ELDER ELDER PER 15 CARE CARE MINUTES DAY CARE S5100 [facility] [address] [place] [address] ADULT; ELDER ELDER PER 15 CARE CARE MINUTES DAY CARE S5100 [facility] [address] [place] [address] ADULT; ELDER ELDER PER 15 CARE CARE MINUTES DAY CARE S5100 [facility] [address] [place] [address] ADULT; ELDER ELDER PER 15 CARE CARE MINUTES DAY CARE S5100 [facility] [address] [place] [address] ADULT; ELDER ELDER PER 15 CARE CARE MINUTES DAY CARE S5100 [facility] [address] [place] [address] ADULT; ELDER ELDER PER 15 CARE CARE MINUTES [facility] [address] ROBER, ROBER, MEDICAL 8 KIT A KIT A XM&EVAL COMPRE NEW PT 1/> VST DAY CARE S5100 [facility] [address] [place] [address] ADULT; ELDER ELDER PER 15 CARE CARE MINUTES TRAPEZE E0940 YOSELYNKAY SCHROEDER 8 HOME MED HOME MED FREESTAND EQUIP. EQUIP. [facility] COMPLETE WITH [facility]AB ELDA HOS BED E0260 YOSELYN YOSELYN SEMI-ELEC 8 HOME MED HOME MED W/ANY EQUIP. EQUIP. TYPE SIDE [facility] RAIL W/MATTRSS DAY CARE S5100 [facility] [address] [place] [address] ADULT; ELDER ELDER PER 15 CARE CARE MINUTES DAY CARE S5100 [facility] [address] [place] [address] ADULT; ELDER ELDER PER 15 CARE CARE MINUTES DAY CARE S5100 [facility] [address] [place] [address] ADULT; ELDER ELDER PER 15 CARE CARE MINUTES DAY CARE S5100 [facility] [address] [place] [address] ADULT; ELDER ELDER PER 15 CARE CARE MINUTES DAY CARE S5100 [facility] [address] [place] [address] ADULT; ELDER ELDER PER 15 CARE CARE MINUTES DAY CARE S5100 [facility] [address] [place] [address] ADULT; ELDER ELDER PER 15 CARE CARE MINUTES DAY CARE S5100 [facility] [address] [place] [address] ADULT; ELDER ELDER PER 15 CARE CARE MINUTES INTERMIT A4351 OUMAR SENA 8 [facility] CATH; E CENTERS E CENTERS STRAIGHT TIP W/WO COAT EA DAY CARE S5100 [facility] [address] [place] [address] ADULT; ELDER ELDER PER 15 CARE CARE MINUTES DAY CARE S5100 [facility] [address] [place] [address] ADULT; ELDER ELDER PER 15 CARE CARE MINUTES DAY CARE S5100 [facility] [address] [place] [address] ADULT; ELDER ELDER PER 15 CARE CARE MINUTES DAY CARE S5100 [facility] [address] [place] [address] ADULT; ELDER ELDER PER 15 CARE CARE MINUTES DAY CARE S5100 [facility] [address] [place] [address] ADULT; ELDER ELDER PER 15 CARE CARE MINUTES DAY CARE S5100 [facility] [address] [place] [address] ADULT; ELDER ELDER PER 15 CARE CARE MINUTES DAY CARE S5100 [facility] [address] [place] [address] ADULT; ELDER ELDER PER 15 CARE CARE MINUTES ADLT SZD T4528 [facility] 8 HOME HOME INCONT HEALTH HEALTH PROD AGENCY AGENCY UNDWEAR XTRA LG EA INCONTINE T4541 [facility] NCE 8 HOME HOME PRODUCT HEALTH HEALTH DISPOSABL AGENCY AGENCY E UNDPAD LARGE EA DAY CARE S5100 [facility] [address] [place] [address] ADULT; ELDER ELDER PER 15 CARE CARE MINUTES DAY CARE S5100 [facility] [address] [place] [address] ADULT; ELDER ELDER PER 15 CARE CARE MINUTES DAY CARE S5100 [facility] [address] [place] [address] ADULT; ELDER ELDER PER 15 CARE CARE MINUTES TRAPEZE E0940 YOSELYN TOPETE BAR 8 HOME MED HOME MED FREESTAND EQUIP. EQUIP. ING [facility] COMPLETE WITH GRAB BAR HOS BED E0260 YOSELYN TOPETE SEMI-ELEC 8 HOME MED HOME MED W/ANY EQUIP. EQUIP. TYPE SIDE [facility] RAIL W/MATTRSS DAY CARE S5100 [facility] [address] [place] [address] ADULT; ELDER ELDER PER 15 CARE CARE MINUTES DAY CARE S5100 [facility] [address] [place] [address] ADULT; ELDER ELDER PER 15 CARE CARE MINUTES DAY CARE S5100 [facility] [address] [place] [address] ADULT; ELDER ELDER PER 15 CARE CARE MINUTES PROTHROMB 35888 [facility] IN TIME 8 [facility] INC INC DRUG 60779 [facility] ASSAY 8 [facility] VALPROIC INC INC DIPROPYLA CETIC ACID TOTAL 3D 73704 [place], RENDERING 8 MEDICAL YONY P IMAGING W/INTERP& ASSOCIATE POSTPROC [place] N[place] [address]88 [facility] THER 8 [facility] PROPH/DX INC INC 1ST >1 HR CREATINE 22503 [facility] KINASE 8 [facility] TOTAL INC INC ECG 69222 [facility] ROUTINE 8 [facility] ECG INC INC W/LEAST 12 LDS TRCG ONLY W/O I&R GROUND A0425 [facility] 8 AMBULANCE AMBULANCE [place] [address] JAYLENE BURRIS, HEAD/BRAI 8 MEDICAL YONY P N W/O IMAGING CONTRAST ASSOCIATE MATERIAL S AMB A0427 [facility] 8 AMBULANCE AMBULANCE ALS SERVICE SERVICE EMERGENCY TRANSPORT LEVEL 1 THROMBOPL [id number] [facility]EP SABILLON ASTIN 8 [facility] TIME INC INC PARTIAL PLASMA/WH OLE BLOOD COMPREHEN 96583 [facility] SABILLON SIVE 8 [facility] METABOLIC INC INC PANEL CREATINE 42677 RAM[facility]DEEP SABILLON KINASE MB 8 [facility] FRACTION INC INC ONLY ECG 28573 RAMANDEEP ARLYN, ROUTINE 8 [facility] W/LEAST PROF SERV 12 L[place] [address] RAM[facility]DEEP SABILLON TROPONIN 8 [facility] QUANTITAT INC INC TAYLER BLOOD 19221 RAMANDEEP SABILLON COUNT 8 [facility] COMPLETE INC INC AUTO&AUTO DIFRNTL WBC DAY CARE S[address] ADULT; ELDER ELDER PER 15 CARE CARE MINUTES DAY CARE S5100 RAMANDEEP [address] ADULT; ELDER ELDER PER 15 CARE CARE MINUTES DAY CARE S5[address] ADULT; ELDER ELDER PER 15 CARE CARE MINUTES DAY CARE S5[address] ADULT; ELDER ELDER PER 15 CARE CARE MINUTES BLD GLU A4253 M E D M E D TEST/REAG 8 SUPPLIES SUPPLIES T STRIPS HOME BLD GLU MON-50 DAY CARE S5100 [address] [address] ADULT; ELDER ELDER PER 15 CARE CARE MINUTES DAY CARE S5[address] [address] ADULT; ELDER ELDER PER 15 CARE CARE MINUTES TRAPEZE E0940 YOSELYN SCHROEDER 8 HOME MED HOME MED FREESTAND EQUIP. EQUIP. ING [facility] COMPLETE WITH ART SCHROEDER HOS BED E0260 YOSELYN TOPETE SEMI-ELEC 8 HOME MED HOME MED W/ANY EQUIP. EQUIP. TYPE SIDE [facility] RAIL W/MATTRSS DAY CARE S5[address] RAM[address]EP [address] ADULT; ELDER ELDER PER 15 CARE CARE MINUTES DAY CARE S5[address] ADULT; ELDER ELDER PER 15 CARE CARE MINUTES DAY CARE S5[address] ADULT; ELDER ELDER PER 15 CARE CARE MINUTES MEDICAL 57714 DHS/CO RAMANDEEP [address] ASSMT&IVN BANK ACCT TJ INDIV EACH 15 [address] DAY CARE S5100 [address] ADULT; ELDER ELDER PER 15 CARE CARE MINUTES DAY CARE S5100 [address] ADULT; ELDER ELDER PER 15 CARE CARE MINUTES ADLT SZD T4528 [facility] 8 HOME HOME INCONT HEALTH HEALTH PROD AGENCY AGENCY UNDWEAR XTRA LG EA DAY CARE S5[address] ADULT; ELDER ELDER PER 15 CARE CARE MINUTES DAY CARE S5100 [address] ADULT; ELDER ELDER PER 15 CARE CARE MINUTES DAY CARE S5[address] ADULT; ELDER ELDER PER 15 CARE CARE MINUTES DAY CARE S5[address] ADULT; ELDER ELDER PER 15 CARE CARE MINUTES TRAPEZE E0940 OYSELYN SCHROEDER 8 HOME MED HOME MED FREESTAND EQUIP. EQUIP. [facility] COMPLETE WITH GRAB [facility] HOS BED E0260 YOSELYN TOPETE SEMI-ELEC 8 HOME MED HOME MED W/ANY EQUIP. EQUIP. TYPE SIDE [facility] RAIL W/MATTRSS DAY CARE S[address] ADULT; ELDER ELDER PER 15 CARE CARE MINUTES DAY CARE S5100 [address] ADULT; ELDER ELDER PER 15 CARE CARE MINUTES DAY CARE S5[address] ADULT; ELDER ELDER PER 15 CARE CARE MINUTES DAY CARE S5[address] ADULT; ELDER ELDER PER 15 CARE CARE MINUTES DAY CARE S5100 [address] ADULT; ELDER ELDER PER 15 CARE CARE MINUTES DAY CARE S5[address] ADULT; ELDER ELDER PER 15 CARE CARE MINUTES DAY CARE S5[address] ADULT; ELDER ELDER PER 15 CARE CARE MINUTES INTERMIT A4351 [facility] SENA [facility]; E CENTERS E CENTERS STRAIGHT TIP W/WO COAT EA DAY CARE S5[address] ADULT; ELDER ELDER PER 15 CARE CARE MINUTES DAY CARE S5100 [facility] [address] [place] [address] ADULT; ELDER ELDER PER 15 CARE CARE MINUTES DAY CARE S5100 [facility] [address] [place] [address] ADULT; ELDER ELDER PER 15 CARE CARE MINUTES DAY CARE S5[address] ADULT; ELDER ELDER PER 15 CARE CARE MINUTES DAY CARE S5[address] ADULT; ELDER ELDER PER 15 CARE CARE MINUTES DAY CARE S5[address] ADULT; ELDER ELDER PER 15 CARE CARE MINUTES DAY CARE S5[address] ADULT; ELDER ELDER PER 15 CARE CARE MINUTES DAY CARE S5[address] ADULT; ELDER ELDER PER 15 CARE CARE MINUTES DAY CARE S5[address] ADULT; ELDER ELDER PER 15 CARE CARE MINUTES DAY CARE S5[address] ADULT; ELDER ELDER PER 15 CARE CARE MINUTES DAY CARE S5[address] ADULT; ELDER ELDER PER 15 CARE CARE MINUTES DAY CARE S5[address] ADULT; ELDER ELDER PER 15 CARE CARE MINUTES DAY CARE S5[address] ADULT; ELDER ELDER PER 15 CARE CARE MINUTES TRAPEZE E0940 YOSELYN SCHROEDER 8 HOME MED HOME MED FREESTAND EQUIP. EQUIP. ING [facility] COMPLETE WITH GRAB BAR HOS BED E0260 YOSELYN TOPETE SEMI-ELEC 8 HOME MED HOME MED W/ANY EQUIP. EQUIP. TYPE SIDE [facility] RAIL W/MATTRSS AIR PRESS E0197 YOSELYN YOSELYN PAD 8 HOME MED HOME MED MATTRSS EQUIP. EQUIP. [employer] MATTRSS LENGTH&WI DT DAY CARE S5[address] ADULT; ELDER ELDER PER 15 CARE CARE MINUTES DAY CARE S5[address] ADULT; ELDER ELDER PER 15 CARE CARE MINUTES DAY CARE S5[address] ADULT; ELDER ELDER PER 15 CARE CARE MINUTES DAY CARE S5[address] ADULT; ELDER ELDER PER 15 CARE CARE MINUTES DAY CARE S5[address] ADULT; ELDER ELDER PER 15 CARE CARE MINUTES DAY CARE S5[address] ADULT; ELDER ELDER PER 15 CARE CARE MINUTES DAY CARE S5[address] ADULT; ELDER ELDER PER 15 CARE CARE MINUTES ADLT SZD T4528 [facility] 8 HOME HOME FOR[facility]LY [facility] HEALTH PROD AGENCY AGENCY UNDWEAR XTRA LG EA DAY CARE S[address] ADULT; ELDER ELDER PER 15 CARE CARE MINUTES DAY CARE S5[address] ADULT; ELDER ELDER PER 15 CARE CARE MINUTES DAY CARE S5[address] ADULT; ELDER ELDER PER 15 CARE CARE MINUTES BLD GLU A4253 M E D M E D TEST/REAG 8 SUPPLIES SUPPLIES T STRIPS HOME BLD GLU SAT-50 DAY CARE S5[address] ADULT; ELDER ELDER PER 15 CARE CARE MINUTES DAY CARE S5[address] ADULT; ELDER ELDER PER 15 CARE CARE MINUTES DAY CARE S5[address] ADULT; ELDER ELDER PER 15 CARE CARE MINUTES DAY CARE S5[address] ADULT; ELDER ELDER PER 15 CARE CARE MINUTES DAY CARE S5[address] ADULT; ELDER ELDER PER 15 CARE CARE MINUTES DAY CARE S5[address] ADULT; ELDER ELDER PER 15 CARE CARE MINUTES DAY CARE S5100 [employer] [facility] [address] [place] [address] ADULT; ELDER ELDER PER 15 CARE CARE MINUTES DAY CARE S5100 RAMANDEEP [employer] [address] [place] [address] ADULT; ELDER ELDER PER 15 CARE CARE MINUTES DAY CARE S5100 RAMANDEEP [facility] [address] [place] [address] ADULT; ELDER ELDER PER 15 CARE CARE MINUTES DAY CARE S5100 RAMANDEEP [employer] [address] [place] [address] ADULT; ELDER ELDER PER 15 CARE CARE MINUTES INTERMIT A4351 OUMAR SENA [facility]; E CENTERS E CENTERS STRAIGHT TIP W/WO COAT EA DAY CARE S5100 RAMANDEEP RAMANDEEP SERVICES [address] [place] [address] ADULT; ELDER ELDER PER 15 CARE CARE MINUTES DAY CARE S5100 RAMANDEEP RAM[facility] [address] [place] [address] ADULT; ELDER ELDER PER 15 CARE CARE MINUTES DAY CARE S5100 RAMANDEEP RAMANDEEP [address] ADULT; ELDER ELDER PER 15 CARE CARE MINUTES DAY CARE S5100 RAMANDEEP [employer] [address] [place] [address] ADULT; ELDER ELDER PER 15 CARE CARE MINUTES ADLT SZD T4528 [facility] 8 HOME HOME [facility] HEALTH PROD AGENCY AGENCY UNDWEAR XTRA LG EA DAY CARE S5100 RAMANDEEP RAMANDEEP [address] ADULT; ELDER ELDER PER 15 CARE CARE MINUTES DAY CARE S5100 RAMANDEEP [employer] [address] [place] [address] ADULT; ELDER ELDER PER 15 CARE CARE MINUTES DAY CARE S5100 RAMANDEEP [employer] [address] [place] [address] ADULT; ELDER ELDER PER 15 CARE CARE MINUTES DAY CARE S5100 RAMANDEEP [employer] [address] [place] [address] ADULT; ELDER ELDER PER 15 CARE CARE MINUTES DAY CARE S5100 RAMANDEEP [employer] [address] [place] [address] ADULT; ELDER ELDER PER 15 CARE CARE MINUTES DAY CARE S5100 RAMANDEEP [employer] [address] [place] [address] ADULT; ELDER ELDER PER 15 CARE CARE MINUTES DAY CARE S5100 RAMANDEEP [employer] [address] [place] [address] ADULT; ELDER ELDER PER 15 CARE CARE MINUTES DAY CARE S5100 RAMANDEEP [employer] [address] [place] [address] ADULT; ELDER ELDER PER 15 CARE CARE MINUTES DAY CARE S5100 [address] ADULT; ELDER ELDER PER 15 CARE CARE MINUTES DAY CARE S5100 RAMANDEEP [facility] [address] [place] [address] ADULT; ELDER ELDER PER 15 CARE CARE MINUTES DAY CARE S5100 [facility] [address] [place] [address] ADULT; ELDER ELDER PER 15 CARE CARE MINUTES DAY CARE S5100 RAMANDEEP RAMANDEEP [address] ADULT; ELDER ELDER PER 15 CARE CARE MINUTES DAY CARE S[address] ADULT; ELDER ELDER PER 15 CARE CARE MINUTES DAY CARE S5[address] ADULT; ELDER ELDER PER 15 CARE CARE MINUTES DAY CARE S5100 RAMAN[facility]EP [address] ADULT; ELDER ELDER PER 15 CARE CARE MINUTES DAY CARE S5[address] ADULT; ELDER ELDER PER 15 CARE CARE MINUTES DAY CARE S5100 RAMANDEEP [address] ADULT; ELDER ELDER PER 15 CARE CARE MINUTES DAY CARE S[address] ADULT; ELDER ELDER PER 15 CARE CARE MINUTES DAY CARE S5100 RAMANDEEP [address] ADULT; ELDER ELDER PER 15 CARE CARE MINUTES INCONTINE T4541 [facility] N[facility] 8 HOME HOME PRODUCT HEALTH HEALTH DISPOSABL AGENCY AGENCY E UNDPAD LARGE EA ADLT SZD T4528 [facility] 8 HOME HOME INCONT HEALTH HEALTH PROD AGENCY AGENCY UNDWEAR XTRA LG EA DAY CARE S[address] ADULT; ELDER ELDER PER 15 CARE CARE MINUTES DAY CARE S5[address] ADULT; ELDER ELDER PER 15 CARE CARE MINUTES Encounters Encounter Start End Date Code Location Performer Type Date HOME [facility] 0 HOME OUTPATIEN HEALTH T [facility]EP - 0 0 [facility] T HOME [facility], 0 0 DIST OTHER HEALTH DEPT FELLER OPERATOR HOME [facility], 0 0 DIST OTHER HEALTH DEPT FELLER OPERATOR HOME [facility], 0 0 HOME OUTPATIEN HEALTH T AGENCY [facility], 0 0 DIST OTHER HEALTH DEPT FELLER OPERATOR OFFICE [id number] CHASE GALARZAPATIEN 9 9 LEANDRA Hernandez T VISIT PSC 15 MINUTES OFFICE 46315 CHASE MCGREGORPATIJOSE FRANCISCO 9 9 LEANDRA PETIT T VISIT 5 PSC MINUTES HOME [facility], 9 9 DIST OTHER HEALTH DEPT FELLER OPERATOR HOME [facility], 9 9 HOME OUTPATIEN HEALTH T AGENCY OFFICE 79903 TERRY RUIZ 9 9 [facility] T VISIT SERV 15 FOUNDATIO MINUTES HOME [facility], 9 9 DIST OTHER HEALTH DEPT FELLER OPERATOR HOME [facility], 9 9 HOME OUTPATIEN HEALTH T [facility] RAMANDEEP - 9 9 [facility] OUTPATIEN INC T HOME [facility], 9 9 DIST OTHER HEALTH DEPT FELLER OPERATOR OFFICE 81693 TIM SCHULTE, CONSULTBERTRAND 9 9 MEDICAL NILDA ION SERV NEW/ESTAB FOUNDATIO PATIENT 60 MIN HOME [facility], 9 9 DIST OTHER HEALTH DEPT FELLER OPERATOR OFFICE 02627 Mary HANDYPATIEN 9 9 LEANDRA Rhodes VISIT PSC 15 MINUTES OFFICE 81481 Mary HANDYPATIEN 9 9 LEANDRA Messer T VISIT PSC 15 MINUTES HOME [facility], 9 9 DIST OTHER HEALTH DEPT FELLER OPERATOR HOME [facility], 9 9 HOME OUTPATIEN HEALTH T [facility] RAMANDEEP - 9 9 [facility] OUTPATIEN INC T HOME [facility] 9 9 DIST OTHER HEALTH DEPT FELLER OPERATOR HOME [facility], 9 9 DIST OTHER HEALTH DEPT FELLER OPERATOR HOME [facility], 9 9 HOME OUTPATIEN HEALTH T AGENCY OFFICE 61659 Mary MANLEY OUTPATIEN 9 9 LEANDRA Hernandez T VISIT PSC 15 MINUTES HOME [facility], 9 9 DIST OTHER HEALTH DEPT FELLER OPERATOR OFFICE 28256 Mary ALMANZAR OUTPATIEN 9 9 LEANDRA PETIT T VISIT 5 PSC MINUTES OFFICE 30612 Mary MANLEY OUTPATIEN 9 9 LEANDRA Hernandez T VISIT PSC 15 MINUTES HOME [facility], 9 9 DIST OTHER HEALTH DEPT FELLER OPERATOR HOME [facility], 9 9 HOME OUTPATIEN HEALTH T AGENCY OFFICE 17681 DHS/CO RAMANDEEP OUTPATIEN 9 9 HEALTH CO HEALTH T V[facility]IT [facility] 15 BANK ACCT MINUTES HOME [facility], 9 9 DIST OTHER HEALTH DEPT FELLER OPERATOR HOME [facility], 9 9 DIST OTHER HEALTH DEPT FELLER OPERATOR OFFICE 24255 Mary HANDY OUTPATIEN 9 9 LEANDRA Messer T VISIT PSC 15 MINUTES HOME [facility], 9 9 HOME OUTPATIEN HEALTH T AGENCY [facility], 9 9 DIST OTHER HEALTH DEPT FELLER OPERATOR OFFICE 03411 Mary HANDY OUTPATIEN 9 9 LEANDRA Messer T VISIT 5 PSC MINUTES HOME [facility], 9 9 HOME OUTPATIEN HEALTH T AGENCY [facility], 9 9 DIST OTHER HEALTH DEPT FELLER OPERATOR HOME [facility], 9 9 DIST OTHER HEALTH DEPT FELLER OPERATOR OFFICE 79265 Mary HANDY OUTPATIEN 9 9 LEANDRA Rhodes VISIT 5 PSC MINUTES HOME [facility], 9 9 HOME OUTPATIEN HEALTH T AGENCY OFFICE 05462 Mary HANDY OUTPATIEN 9 9 LEANDRA Rhodes VISIT PSC 15 MINUTES OFFICE 20607 Mary HANDY OUTPATIEN 9 9 LEANDRA Rhodes VISIT 5 PSC MINUTES HOME [facility], 9 9 DIST OTHER HEALTH DEPT FELLER OPERATOR OFFICE 11842 Mary HANDY OUTPATIEN 9 9 LEANDRA Rhodes VISIT 5 PSC MINUTES HOME [facility], 9 9 DIST OTHER HEALTH DEPT FELLER OPERATOR HOME [facility], 9 9 HOME OUTPATIEN HEALTH T AGENCY [facility], 8 8 DIST OTHER HEALTH DEPT FELLER OPERATOR HOME [facility], 8 8 HOME OUTPATIEN HEALTH T AGENCY HOME [facility], 8 8 DIST OTHER HEALTH DEPT FELLER OPERATOR OFFICE 81481 Mary HANDY OUTPATIEN 8 8 LEANDRA Rhodes VISIT 5 PSC MINUTES HOME [facility], 8 8 DIST OTHER HEALTH DEPT FELLER OPERATOR HOME [facility], 8 8 HOME OUTPATIEN HEALTH T AGENCY [facility], 8 8 DIST OTHER HEALTH DEPT FELLER OPERATOR HOME [facility], 8 8 DIST OTHER HEALTH DEPT FELLER OPERATOR HOME [facility], 8 8 HOME OUTPATIEN HEALTH T AGENCY OFFICE 94649 Mary HANDY OUTPATIEN 8 8 LEANDRA Rhodes VISIT PSC 15 MINUTES EMERGENCY 33944 RAMANDEEP 8 8 [facility] DEPARTMEN INC T VISIT HIGH/URGE NT SEVERITY EMERGENCY 00489 JEEVAN ORTIZ, 8 8 [facility] DEPARTMEN CORPORATI O T VISIT ON MODERATE SEVERITY HOSPITAL RAMANDEEP - 8 8 [facility] OUTPATIEN INC T HOME [facility], 8 8 DIST OTHER HEALTH DEPT FELLER OPERATOR OFFICE 16164 Mary HANDY OUTPATIEN 8 8 LEANDRA WHITESIDE C T VISIT [facility] 15 MINUTES HOME [facility], 8 8 DIST OTHER HEALTH DEPT FELLER OPERATOR HOME [facility], 8 8 HOME OUTPATIEN HEALTH T AGENCY [facility], 8 8 DIST OTHER HEALTH DEPT FELLER OPERATOR HOME [facility], 8 8 HOME OUTPATIEN HEALTH T AGENCY [facility], 8 8 DIST OTHER HEALTH DEPT FELLER OPERATOR OFFICE 54310 DHS/CO RAMANDEEP OUTPATIEN 8 8 HEALTH CO HEALTH T V[facility]IT [facility] 10 BANK ACCT MINUTES [facility], 8 8 DIST OTHER HEALTH DEPT FELLER OPERATOR HOME [facility], 8 8 HOME OUTPATIEN HEALTH T AGENCY OFFICE 65282 DHS/CO RAMANDEEP OUTPATIEN 8 8 HEALTH CO HEALTH T VISIT [facility] 15 BANK ACCT MINUTES HOME [facility], 8 8 DIST OTHER HEALTH DEPT FELLER OPERATOR HOME [facility], 8 8 HOME OUTPATIEN HEALTH T AGENCY [facility], 8 8 DIST OTHER HEALTH DEPT FELLER OPERATOR
--- OUTSIDE RECORDS SUMMARY | 2016-12-16 19:57 | External Medical Summary Rpt ---
Author Author , Organization [employer] Address Unknown Phone Unavailable Care Team Providers Care Bale Coverer Name Role Phone ALBA STODDARD, Unavailable Unavailable ALBA STODDARD ANTONIO, Unavailable Unavailable [facility] Unavailable Unavailable SERVICE, [facility] Unavailable Unavailable CENTERS, [facility]ERS [facility] Unavailable Unavailable INC, [facility] Unavailable Unavailable CENTER, [facility] Unavailable Unavailable CARE, [facility] Unavailable Unavailable INC, [facility] KIT RICHTER, Unavailable Unavailable [facility] Unavailable Unavailable [facility] Unavailable [facility]available HOLDING, [facility] Skyler Penaloza SUPPLIES, M Regis Penaloza Unavailable Unavailable SUPPLIES YONY BURRIS, Unavailable Unavailable YONY BURRIS STEPHEN A, Unavailable Unavailable ALBA MANLEY MARC D, Unavailable Unavailable FLAKITA LEAL [facility] Unavailable Unavailable ASSOCIATES,[facility], [facility] DAMASO ALMANZAR, Unavailable Unavailable DAMASO ALMANZAR BABATUNDE O, Unavailable Unavailable BARNEY ORTIZ [facility] Unavailable Unavailable [facility], 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 [facility] Unavailable Unavailable AGENCY, [facility] Mary MOBLEY WRIGHT, Unavailable Unavailable Mary C Purpose Continuity of Care Document - 08-20-2007 through 2016 Problems Code Diagnosis DOS Provider Status 48858 DIAB W/O 11-11-2009 Skyler Penaloza MENTION SUPPLIES COMP TYPE II/UNS TYPE UNCNTRL 27535 UNSPECIFIED 11-10-2009 [facility] INCONT[facility]ENT[facility] E 4389 UNSPEC LATE 11-07-2009 [facility] EFF HEALTH CEREBRVASC AGENCY DZ DUE CEREBRVASC DZ 7197 DIFFICULTY 11-07-2009 [facility] IN [facility] HEALTH AGENCY 65081 OTHER 11-07-2009 [facility] MALAISE AND HEALTH FATIGUE AGENCY 437 OTHER 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[facility] CEREBROVASC ULAR DISEASE 5950 ACUTE 10-24-2009 [facility] 85583 INCOMPLETE 10-24-2009 [facility] EMPTYING INC 4019 UNSPECIFIED 10-17-2009 [facility] HYPERTENSIO 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 N 496 CHRONIC 10-17-2009 [facility] OBSTRUCTION 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 NEC 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, OSIS OF FLAKITA D NAIL 7295 PAIN IN 10-07-2009 [facility], SOFT FLAKITA D TISSUES OF LIMB 40731 DIAB W/O 08-02-2009 [facility] COMP TYPE AMERIC II/UNS NOT HOLDING STATED UNCNTRL 58740 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 VACCINATION &INOCULATIO N FLU 2724 OTHER AND 05-26-2009 [facility]NSPECIF[facility] HYPERLIPIDE ROXANNA 38940 BACKGROUND 04-12-2009 ALFIE RICHTER A RETINOPATHY 78466 HYPERTROPHY 03-31-2009 [facility] W/UR OBST & INC OTH LUTS 4329 UNSPECIFIED 03-10-2009 [facility] L HEMORRHAGE 7365 GENU 03-10-2009 [facility] 08897 OTHER 03-10-2009 [facility] DEFORMITY [facility] INC OF ANKLE AND FOOT OTHER 4779 ALLERGIC 01-20-2009 Mary MOBLEY RHINITIS PSC CAUSE UNSPECIFIED 3449 UNSPECIFIED 12-03-2008 [facility] 436 ACUTE BUT 12-03-2008 [facility] CEREBROVASC ULAR DISEASE 70706 OTHER 11-24-2008 Mary MOBLEY CONVULSIONS PSC E9479 UNSPEC 11-24-2008 [facility] RX/MEDICINA AMERIC L SBSTNC [place] [address] MALIG HTN 10-08-2008 [facility] WITHOUT LLC HEART FAIL 4589 UNSPECIFIED 10-08-2008 [facility] 4660 ACUTE 10-08-2008 [facility] 3320 PARALYSIS 10-01-2008 [facility] 5964 ATONY OF 10-01-2008 [facility] BLADDER [facility] AGENCY V5789 OTHER 10-01-2008 [facility] SPECIFIED HEALTH REHABILITAT AGENCY ION PROCEDURE OTHER 50067 UNSPECIFIED 07-13-2008 [facility] C[facility] 7802 SYNCOPE AND 02-24-2008 Mary MOBLEY COLLAPSE [facility] 7804 DIZZINESS 02-23-2008 [facility] GIDDINESS SERVICE V653 DIETARY 01-21-2008 [facility] SURVEILLANC HEALTH E AND [facility] COUNSEL[facility] B[facility] ACCT V7791 SCREENING 11-06-2007 [facility] FOR LIPOID HEALTH DISORDERS CENTRAL BANK ACCT 7806 FEVER & OTH 09-02-2007 [facility] DISTURBANCE S TEMP REG Immunization Name Date Route CVX Reacti Commen Provid Is Given on t er Refuse d IIV3 [place] No [facility]ACCIN [facility] 0.5 ML DOSAGE IM USE IIV3 [place] No VACCIN 2008 [facility] 0.5 ML DOSAGE IM USE IIV3 [place] No VACCIN 2007 [facility] 0.5 ML DOSAGE IM USE Procedures Procedure DOS Code Location Performer Comment DAY CARE S5100 [facility] 0 [place] [facility] ADULT[facility] ELDER ELDER PER 15 CARE CARE MINUTES DAY CARE S5100 [facility] 0 [place] [facility] ADULT; ELDER ELDER PER 15 CARE CARE MINUTES DAY CARE S5100 [facility] 0 [place] [facility] ADULT; ELDER ELDER PER 15 CARE CARE MINUTES BLD GLU A4253 M E D M E D TEST/REAG 0 SUPPLIES SUPPLIES T STRIPS HOME BLD GLU MON-50 LANCETS A4259 M E D M E D PER BOX 0 SUPPLIES SUPPLIES OF 100 INTERMIT A4351 [facility] CATH; E CENTERS E CENTERS STRAIGHT TIP W/WO COAT EA DAY CARE S5100 [facility] 0 [place] ADULT; ELDER ELDER PER 15 CARE CARE MINUTES DAY CARE S5100 [facility] 0 [place] ADULT; ELDER ELDER PER 15 CARE CARE MINUTES DAY CARE S5100 [facility] 0 [place] ADULT; ELDER ELDER PER 15 CARE CARE MINUTES INCONTINE T4541 [facility] PRODUCT HEALTH HEALTH DISPOSABL AGENCY AGENCY E UNDPAD LARGE EA ADLT SZD T4528 [facility] DISPBL 0 HOME HOME INCONT HEALTH HEALTH PROD AGENCY AGENCY UNDWEAR XTRA LG EA DAY CARE S5100 [facility] 0 [place] ADULT; ELDER ELDER PER 15 CARE CARE MINUTES DAY CARE S5100 [facility] 0 [place] ADULT; ELDER ELDER PER 15 CARE CARE MINUTES DAY CARE S5100 [facility] 0 [place] [facility] ADULT; ELDER ELDER PER 15 CARE CARE MINUTES DAY CARE S5100 [facility] 0 [place] ADULT; ELDER ELDER PER 15 CARE CARE MINUTES DAY CARE S5100 [facility] 0 [place] ADULT; ELDER ELDER PER 15 CARE CARE MINUTES SUSCEPTIB 18199 [facility] LTY STDY 0 [facility] ANTIMICRB INC INC IAL MICRO/AGA R DILUTJ CULTURE 58886 [facility] BACTERIAL 0 [facility] INC INC QUANTTATI VE COLONY COUNT URINE CULTURE 62781 [facility] BCT 0 [facility] ISOL&PRSM INC INC PTV ID ISOLATE EA URINE DAY CARE S5100 [facility] 0 [place] ADULT; ELDER ELDER PER 15 CARE CARE MINUTES DAY CARE S5100 [facility] 0 [place] ADULT; ELDER ELDER PER 15 CARE CARE MINUTES DAY CARE S5100 [facility] 0 [place] ADULT; ELDER ELDER PER 15 CARE CARE MINUTES DAY CARE S5100 [facility] 0 [place] ADULT; ELDER ELDER PER 15 CARE CARE MINUTES DAY CARE S5100 [facility] 0 [place] ADULT; ELDER ELDER PER 15 CARE CARE MINUTES DAY CARE S5100 [facility] 0 [place] ADULT; ELDER ELDER PER 15 CARE CARE MINUTES DAY CARE S5100 [facility] 0 [place] ADULT; ELDER ELDER PER 15 CARE CARE MINUTES DAY CARE S5100 [facility] 0 [place] ADULT; ELDER ELDER PER 15 CARE CARE MINUTES INTERMIT A4351 [facility]IN 0 [facility] CATH; E CENTERS E CENTERS STRAIGHT TIP W/WO COAT EA DAY CARE S5100 [facility] 0 [place] ADULT; ELDER ELDER PER 15 CARE CARE MINUTES DAY CARE S5100 [facility] 0 [place] ADULT; ELDER ELDER PER 15 CARE CARE MINUTES DAY CARE S5100 [facility] 0 [place] ADULT; ELDER ELDER PER 15 CARE CARE MINUTES DAY CARE S5100 [facility] 0 [place] ADULT; ELDER ELDER PER 15 CARE CARE MINUTES DAY CARE S5100 [facility] 0 [place] ADULT; ELDER ELDER PER 15 CARE CARE MINUTES DAY CARE S5100 [facility] 0 [place] ADULT; ELDER ELDER PER 15 CARE CARE MINUTES ADLT SZD T4528 [facility] PR[facility] AGENCY AGENCY UNDWEAR XTRA LG EA DAY CARE S5100 [facility] 9 [place] ADULT; ELDER ELDER PER 15 CARE CARE MINUTES DAY CARE S5100 [facility] 9 [place] ADULT; ELDER ELDER PER 15 CARE CARE MINUTES DAY CARE S5100 [facility] 9 [place] ADULT; ELDER ELDER PER 15 CARE CARE MINUTES DAY CARE S5100 [facility] 9 [place] ADULT; ELDER ELDER PER 15 CARE CARE MINUTES DAY CARE S5100 [facility] 9 [facility] ADULT; ELDER ELDER PER 15 CARE CARE MINUTES DAY CARE S5100 [facility] 9 [facility] ADULT; ELDER ELDER PER 15 CARE CARE MINUTES COLLECTIO 37300 Mary MANLEY, N VENOUS 9 LEANDRA Hernandez BLOOD PSC VENIPUNCT URE IM ADM 54708 Mary MANLEY, PRQ ID 9 LEANDRA Hernandez SUBQ/IM PSC NJXS 1 VACCINE BASIC 31199 [facility] METABOLIC 9 AMERIC AMERIC PANEL HOLDING HOLDING CALCIUM TOTAL INJ J0702 Mary MANLEY, BETAMETHA 9 LEANDRA Hernandez SONE PSC ACETATE & PHOSPHATE 3 MG DRUG 70601 [facility] ASSAY 9 AMERIC AMERIC VALPROIC HOLDING HOLDING DIPROPYLA CETIC ACID TOTAL PROTHROMB 39830 Mary MANLEY, IN TIME 9 LEANDRA Hernandez PSC GLUCOSE 16182 Mary MANLEY QUANTITAT 9 LEANDRA Hernandez TAYLER BLOOD PSC XCPT REAGENT STRIP HEMOGLOBI 66656 Mary MANLEY, N 9 LEANDRA Hernandez GLYCOSYLA PSC SUSAN A1C CUL BACT 00678 [facility] AEROBIC 9 AMERIC AMERIC ADDL HOLDING HOLDING METHS DEFINITIV E EA ISOL SUSCEPTIB 23630 [facility] LTY STDY 9 AMERIC AMERIC ANTIMICRB HOLDING HOLDING IAL MICRO/AGA R DILUTJ URINLS 31233 A Ayde ANGUIANOJENELLE, DIP 9 LEANDRA WHITESIDE DAMASO STICK/TAB PSC LET REAGNT NON-AUTO MICRSCPY CULTURE 48251 [facility] BACTERIAL 9 AMERIC AMERIC HOLDING HOLDING QUANTTATI VE COLONY COUNT URINE CULTURE 80066 [facility] BCT 9 AMERIC AMERIC ISOL&PRSM HOLDING HOLDING PTV ID ISOLATE EA URINE DAY CARE S[address] ADULT; ELDER ELDER PER 15 CARE CARE MINUTES DAY CARE S[address] ADULT; ELDER ELDER PER 15 CARE CARE MINUTES DAY CARE S[address] ADULT; ELDER ELDER PER 15 CARE CARE MINUTES DAY CARE S[address] ADULT; ELDER ELDER PER 15 CARE CARE MINUTES DAY CARE S[address] ADULT; ELDER ELDER PER 15 CARE CARE MINUTES ADLT SZD T4528 [facility] HOME HOME INCONT HEALTH HEALTH PROD AGENCY AGENCY UNDWEAR XTRA LG EA DEBRIDEME 73151 PAWT, MEL, SHIKHA NAIL 9 FLAKITA Penaloza ANY METHOD 6/> DAY CARE S5100 [facility] [address] [place] [address] ADULT; ELDER ELDER PER 15 CARE CARE MINUTES DAY CARE S5100 [facility] [address] [place] [address] ADULT; ELDER ELDER PER 15 CARE CARE MINUTES INTERMIT A4351 [facility] SENA 9 [facility] CATH; E CENTERS E CENTERS STRAIGHT TIP W/WO COAT EA DAY CARE S5100 [facility] [address] [place] [address] ADULT; ELDER ELDER PER 15 CARE CARE MINUTES DAY CARE S5100 [facility] [address] [place] [address] ADULT; ELDER ELDER PER 15 CARE CARE MINUTES DAY CARE S5100 [facility] [address] [place] [address] ADULT; ELDER ELDER PER 15 CARE CARE MINUTES DAY CARE S5100 [facility] [address] [place] [address] ADULT; ELDER ELDER PER 15 CARE CARE MINUTES DAY CARE S5100 [facility] [address] [place] [address] ADULT; ELDER ELDER PER 15 CARE CARE MINUTES DAY CARE S5100 [facility] [address] [place] [address] ADULT; ELDER ELDER PER 15 CARE CARE MINUTES DAY CARE S5100 [facility] [address] [place] [address] ADULT; ELDER ELDER PER 15 CARE CARE MINUTES DAY CARE S5100 [facility] [address] [place] [address] ADULT; ELDER ELDER PER 15 CARE CARE MINUTES DAY CARE S5100 [facility] [address] [place] [address] ADULT; ELDER ELDER PER 15 CARE CARE MINUTES DAY CARE S5100 [facility] [address] [place] [address] ADULT; ELDER ELDER PER 15 CARE CARE MINUTES DAY CARE S5100 [facility] [address] [place] [address] ADULT; ELDER ELDER PER 15 CARE CARE MINUTES DAY CARE S5100 [facility] [address] [place] [address] ADULT; ELDER ELDER PER 15 CARE CARE MINUTES DAY CARE S5100 [employer] [facility] [address] [place] [address] ADULT; ELDER ELDER PER 15 CARE CARE MINUTES DAY CARE S5100 [facility] [address] [place] [address] ADULT; ELDER ELDER PER 15 CARE CARE MINUTES INCONTINE T4541 [facility] N[facility] 9 HOME HOME PRODUCT HEALTH HEALTH DISPOSABL AGENCY AGENCY E UNDPAD LARGE EA DAY CARE S5100 [facility] [address] [place] [address] ADULT; ELDER ELDER PER 15 CARE CARE MINUTES DAY CARE S5100 [facility] [address] [place] [address] ADULT; ELDER ELDER PER 15 CARE CARE MINUTES IIV3 69595 [facility] VACCINE 9 [facility] [employer] [facility] SPLIT CENTER CENTER VIRUS 0.5 ML DOSAGE IM USE ADMINISTR G0008 [facility] ATION OF 9 HI [employer] [facility] INFLUENZA CENTER CENTER VIRUS VACCINE ADLT SZD T4528 [facility] 9 HOME HOME INCONT HEALTH HEALTH PROD AGENCY AGENCY UNDWEAR XTRA LG EA DAY CARE S5100 [facility] [address] [place] [address] ADULT; ELDER ELDER PER 15 CARE CARE MINUTES DAY CARE S5100 [facility] [address] ADULT; ELDER ELDER PER [address] [place] [address] [facility] THYROID 9 [facility] STIMULATI INC INC NG HORMONE TSH COLLECTIO 96500 [facility] N VENOUS 9 [facility] BLOOD INC INC VENIPUNCT URE BASIC 95603 [facility] METABOLIC 9 [facility] PANEL INC INC CALCIUM TOTAL INTERMIT A4351 [facility] SENA 9 [facility] CATH; E CENTERS E CENTERS STRAIGHT TIP W/WO COAT EA DAY CARE S5100 [facility] [address] [place] [address] ADULT; ELDER ELDER PER 15 CARE CARE MINUTES DAY CARE S5100 [facility] [address] [place] [address] ADULT; ELDER ELDER PER 15 CARE CARE MINUTES DAY CARE S5100 [facility] [address] [place] [address] ADULT; ELDER ELDER PER 15 CARE CARE MINUTES DAY CARE S5100 [facility] [address] [place] [address] ADULT; ELDER ELDER PER 15 CARE CARE MINUTES DAY CARE S5100 [facility] [address] [place] [address] ADULT; ELDER ELDER PER 15 CARE CARE MINUTES DAY CARE S[address] ADULT; ELDER ELDER PER 15 CARE CARE MINUTES DAY CARE S[address] ADULT; ELDER ELDER PER 15 CARE CARE MINUTES DAY CARE S[address] ADULT; ELDER ELDER PER 15 CARE [...] BOX 9 SUPPLIES SUPPLIES OF 100 IIV3 00337 [facility] VACCINE 9 [facility] SPLIT C[facility] CENTER VIRUS 0.5 ML DOSAGE IM USE ADMINISTR G0008 [facility] ATION OF 9 [facility] INFLUENZA CENTER CENTER VIRUS VACCINE DAY CARE S[address] ADULT; ELDER ELDER PER 15 CARE CARE MINUTES DAY CARE S[address] ADULT; ELDER ELDER PER 15 CARE CARE MINUTES DAY CARE S[address] ADULT; ELDER ELDER PER 15 CARE CARE MINUTES DAY CARE S[address] ADULT; ELDER ELDER PER 15 CARE CARE MINUTES DAY CARE S[address] ADULT; ELDER ELDER PER 15 CARE CARE MINUTES DAY CARE S[address] ADULT; ELDER ELDER PER 15 CARE CARE MINUTES DAY CARE S[address] ADULT; ELDER ELDER PER 15 CARE CARE MINUTES DAY CARE S[address] ADULT; ELDER ELDER PER 15 CARE CARE MINUTES DAY CARE S[address] ADULT; ELDER ELDER PER 15 CARE CARE MINUTES DAY CARE S[address] ADULT; ELDER ELDER PER 15 CARE CARE MINUTES INTERMIT A4351 [facility]W[place] SENA 9 [facility] CATH; E CENTERS E CENTERS STRAIGHT TIP W/WO COAT EA DAY CARE S5100 [facility] [address] ADULT; ELDER ELDER PER 15 CARE CARE MINUTES DAY CARE S5100 [facility] [address] ADULT; ELDER ELDER PER 15 CARE CARE MINUTES DAY CARE S5100 [facility] [address] ADULT; ELDER ELDER PER 15 CARE CARE MINUTES DAY CARE S5100 [facility] [address] ADULT; ELDER ELDER PER 15 CARE CARE MINUTES DAY CARE S5100 [facility] [address] ADULT; ELDER ELDER PER 15 CARE CARE MINUTES ADLT SZD T4528 [facility] PR[facility] AGENCY AGENCY UNDWEAR XTRA LG EA DAY CARE S5100 [facility] [address] ADULT; ELDER ELDER PER 15 CARE CARE MINUTES DAY CARE S5100 [facility] [address] ADULT; ELDER ELDER PER 15 CARE CARE MINUTES DAY CARE S5100 [facility] [address] ADULT; ELDER ELDER PER 15 CARE CARE MINUTES [facility] [address] ROBER, ROBER, MEDICAL 9 KIT A KIT A XM&JOELLE COMPRHNSV ESTAB PT 1/> DAY CARE S5100 [facility] [address] ADULT; ELDER ELDER PER 15 CARE CARE MINUTES DAY CARE S5100 [facility] [address] ADULT; ELDER ELDER PER 15 CARE CARE MINUTES DAY CARE S5100 [facility] [address] ADULT; ELDER ELDER PER 15 CARE CARE MINUTES DAY CARE S5100 [facility] [address] ADULT; ELDER ELDER PER 15 CARE CARE MINUTES DAY CARE S5100 [facility] [address] ADULT; ELDER ELDER PER 15 CARE CARE MINUTES COLLECTIO 33054 [facility] N VENOUS 9 [facility] BLOOD INC INC VENIPUNCT URE BASIC 68714 [facility] METABOLIC 9 [facility] [place] [address] [facility] RETROPERI 9 [facility] INC INC REAL TIME W/IMAGE COMPLETE DAY CARE S5100 [facility] [address] ADULT; ELDER ELDER PER 15 CARE CARE MINUTES DAY CARE S[address] [address] ADULT; ELDER ELDER PER 15 CARE CARE MINUTES DAY CARE S[address] [address] ADULT; ELDER ELDER PER 15 CARE CARE MINUTES DAY CARE S[address] ADULT; ELDER ELDER PER 15 CARE CARE MINUTES DAY CARE S[address] ADULT; ELDER ELDER PER 15 CARE CARE MINUTES DAY CARE S[address] ADULT; ELDER ELDER PER 15 CARE CARE MINUTES DAY CARE S[address] ADULT; ELDER ELDER PER 15 CARE CARE MINUTES DAY CARE S[address] ADULT; ELDER ELDER PER 15 CARE CARE MINUTES DAY CARE S[address] ADULT; ELDER ELDER PER 15 CARE CARE MINUTES DAY CARE S[address] ADULT; ELDER ELDER PER 15 CARE CARE MINUTES DAY CARE S[address] ADULT; ELDER ELDER PER 15 CARE CARE MINUTES ADD LW [id number] [facility] EXT 9 BRACE BRACE VARUS/TARI PROSTH PROSTH ROBERTA WILMER INC INC STRAP PAD/LINE PAD DIAB ONLY [id number] [facility] FIT CSTM 9 BRACE BRACE PREP&SPL PROSTH PROSTH SHOE MX INC INC DNSITY INSRT TRANS [id number] [facility] 1 9 BRACE BRACE SHOE-ANOT PROSTH PROSTH HER SLD INC INC STIRRUP EXISTING REPAIR L4205 [facility] ORTHOTIC 9 BRACE BRACE DEVC PROSTH PROSTH LABOR INC INC COMPONENT PER 15 MIN DAY CARE [id number] ADULT; ELDER ELDER PER 15 CARE CARE MINUTES DAY CARE [id number] ADULT; ELDER ELDER PER 15 CARE CARE MINUTES DAY CARE [id number] ADULT; ELDER ELDER PER 15 CARE CARE MINUTES DAY CARE S[address] ADULT; ELDER ELDER PER 15 CARE CARE MINUTES DAY CARE [id number] ADULT; ELDER ELDER PER 15 CARE CARE MINUTES ADLT SZD [id number] [facility] HOME HOME INCONT HEALTH HEALTH PROD AGENCY AGENCY UNDWEAR XTRA LG EA DAY CARE [id number] ADULT; ELDER ELDER PER 15 CARE CARE MINUTES INTERMIT A4351 [facility] URIN 9 [facility] CATH; E CENTERS E CENTERS STRAIGHT TIP W/WO COAT EA URINLS 16252 A PHYLICIA TAVAREZ 9 LEANDRA Hernandez STICK/TAB PSC LET REAGNT NON-AUTO MICRSCPY CULTURE 26991 [facility] BACTERIAL 9 [employer] QUANTTATI VE COLONY COUNT URINE DAY CARE [id number] ADULT; ELDER ELDER PER 15 CARE CARE MINUTES DAY CARE [id number] ADULT; ELDER ELDER PER 15 CARE CARE MINUTES DAY CARE [id number] ADULT; ELDER ELDER PER 15 CARE CARE MINUTES DAY CARE [id number] ADULT; ELDER ELDER PER 15 CARE CARE MINUTES CULTURE 88973 [facility] BACTERIAL 9 [employer] QUANTTATI VE COLONY COUNT URINE SUSCEPTIB 08339 [facility] LTY STDY 9 [employer] ANTIMICRB HOLD[employer] HOLDING IAL MICRO/AGA R DILUTJ CULTURE 16907 [facility] BCT 9 [employer] ISOL&PRSM HOLDING HOLDING PTV ID ISOLATE EA URINE URINLS 24117 A PHYLICIA DANIELS 9 LEANDRA PETIT STICK/TAB PSC LET REAGNT NON-AUTO MICRSCPY CUL BACT 46161 [facility] AEROBIC 9 [employer] ADDL [employer] HOLDING METHS DEFINITIV E EA ISOL DAY CARE [id number] ADULT; ELDER ELDER PER 15 CARE CARE MINUTES DAY CARE S[address] ADULT; ELDER ELDER PER 15 CARE CARE MINUTES DAY CARE S[address] ADULT; ELDER ELDER PER 15 CARE CARE MINUTES DAY CARE [id number] ADULT; ELDER ELDER PER 15 CARE CARE MINUTES DAY CARE S[address] ADULT; ELDER ELDER PER 15 CARE CARE MINUTES DAY CARE S[address] ADULT; ELDER ELDER PER 15 CARE CARE MINUTES DAY CARE S[address] ADULT; ELDER ELDER PER 15 CARE CARE MINUTES DAY CARE S[address] ADULT; ELDER ELDER PER 15 CARE CARE MINUTES DAY CARE [id number] ADULT; ELDER ELDER PER 15 CARE CARE MINUTES INTERMIT [id number] OUMAR SENA 9 [facility] CATH; E CENTERS E CENTERS STRAIGHT TIP W/WO COAT EA DAY CARE S5100 [address] ADULT; ELDER ELDER PER 15 CARE CARE MINUTES DAY CARE S5100 [address] ADULT; ELDER ELDER PER 15 CARE CARE MINUTES DAY CARE S[address] ADULT; ELDER ELDER PER 15 CARE CARE MINUTES DAY CARE S5[address] ADULT; ELDER ELDER PER 15 CARE CARE MINUTES DAY CARE S5100 [address] ADULT; ELDER ELDER PER 15 CARE CARE MINUTES DAY CARE S[address] ADULT; ELDER ELDER PER 15 CARE CARE MINUTES ADLT SZD T4528 [facility] HOME [facility] PROD AGENCY AGENCY UNDWEAR XTRA LG EA DAY CARE S[address] ADULT; ELDER ELDER PER 15 CARE CARE MINUTES DAY CARE S5100 [address] ADULT; ELDER ELDER PER 15 CARE CARE MINUTES DAY CARE S[address] ADULT; ELDER ELDER PER 15 CARE CARE MINUTES DAY CARE S5100 [facility] [address] [place] [address] ADULT; ELDER ELDER PER 15 CARE CARE MINUTES DAY CARE S5100 [facility] [address] [place] [address] ADULT; ELDER ELDER PER 15 CARE CARE MINUTES DAY CARE S5100 [facility] [address] [place] [address] ADULT; ELDER ELDER PER 15 CARE CARE MINUTES DAY CARE S5100 [facility] [address] [place] [address] ADULT; ELDER ELDER PER 15 CARE CARE MINUTES DAY CARE S5100 [facility] [address] [place] [address] ADULT; ELDER ELDER PER 15 CARE CARE MINUTES DAY CARE S5100 [facility] [address] [place] [address] ADULT; ELDER ELDER PER 15 CARE CARE MINUTES DAY CARE S5100 [facility] [address] [place] [address] ADULT; ELDER ELDER PER 15 CARE CARE MINUTES DAY CARE S5100 RAMANDEEP RAMANDEEP [address] ADULT; ELDER ELDER PER 15 CARE CARE MINUTES DAY CARE S[address] ADULT; ELDER ELDER PER 15 CARE CARE MINUTES DAY CARE S5100 [facility] [address] [place] [address] ADULT; ELDER ELDER PER 15 CARE CARE MINUTES DAY CARE S5[address] ADULT; ELDER ELDER PER 15 CARE CARE MINUTES DAY CARE S[address] ADULT; ELDER ELDER PER 15 CARE CARE MINUTES DAY CARE S5100 RAMANDEEP RAMANDEEP [address] ADULT; ELDER ELDER PER 15 CARE CARE MINUTES DAY CARE S5100 [facility] [address] [place] [address] ADULT; ELDER ELDER PER 15 CARE CARE MINUTES DAY CARE S5100 [facility] [address] [place] [address] ADULT; ELDER ELDER PER 15 CARE CARE MINUTES DAY CARE S5100 [facility] [address] [place] [address] ADULT; ELDER ELDER PER 15 CARE CARE MINUTES TRAPEZE E0940 YOSELYN SCHROEDER 9 HOME MED HOME MED FREESTAND EQUIP. EQUIP. ING [facility] COMPLETE WITH ART SCHRO[facility]ER H[facility]ED E0260 YOSELYN TOPETE SEMI-ELEC 9 HOME MED HOME MED W/ANY EQUIP. EQUIP. TYPE SIDE [facility] RAIL W/MATTRSS DAY CARE S[address] ADULT; ELDER ELDER PER 15 CARE CARE MINUTES DAY CARE S[address] ADULT; ELDER ELDER PER 15 CARE CARE MINUTES DAY CARE S[address] ADULT; ELDER ELDER PER 15 CARE CARE MINUTES DAY CARE S[address] ADULT; ELDER ELDER PER 15 CARE CARE MINUTES DAY CARE S[address] ADULT; ELDER ELDER PER 15 CARE CARE MINUTES DAY CARE S[address] ADULT; ELDER ELDER PER 15 CARE CARE MINUTES COLLECTIO 12730 Mary HANDY VENOUS 9 LEANDRA Messer BLOOD PSC VENIPUNCT URE DRUG 89986 LAB [facility] LAB ANIK[facility] ASSAY 9 AMERIC AMERIC VALPROIC HOLDING HOLDING DIPROPYLA CETIC ACID TOTAL BASIC 33118 [facility] METABOLIC 9 AMERIC AMERIC PANEL HOLDING HOLDING CALCIUM TOTAL PROTHROMB 66194 Mary HANDY IN TIME 9 LEANDRA Messer PSC ADLT SZD T4528 [facility] HOME HOME INCONT HEALTH HEALTH PROD AGENCY AGENCY UNDWEAR XTRA LG EA DAY CARE S[address] ADULT; ELDER ELDER PER 15 CARE CARE MINUTES DAY CARE S5[address] ADULT; ELDER ELDER PER 15 CARE CARE MINUTES DAY CARE S[address] ADULT; ELDER ELDER PER 15 CARE CARE MINUTES DAY CARE S[address] ADULT; ELDER ELDER PER 15 CARE CARE MINUTES URINLS 09008 Mary HANDY DIP 9 LEANDRA Messer STICK/TAB PSC LET REAGNT NON-AUTO MICRSCPY INCONTINE T4541 [facility] NCE 9 HOME HOME [facility] DISPOSABL AGENCY AGENCY E UNDPAD LARGE EA DAY CARE S[address] ADULT; ELDER ELDER PER 15 CARE CARE MINUTES DAY CARE S[address] ADULT; ELDER ELDER PER 15 CARE CARE MINUTES DAY CARE S5100 [facility] [address] [place] [address] ADULT; ELDER ELDER PER 15 CARE CARE MINUTES DAY CARE S5100 [facility] [address] [place] [address] ADULT; ELDER ELDER PER 15 CARE CARE MINUTES TRAPEZE E0940 YOSELYN YOSELYN BAR 9 HOME MED HOME MED FREESTAND EQUIP. EQUIP. ING [facility] COMPLETE WITH GRAB BAR HOS BED E0260 YOSELYN YOSELYN SEMI-ELEC 9 HOME MED HOME MED W/ANY EQUIP. EQUIP. TYPE SIDE [facility] RAIL W/MATTRSS DAY CARE S5100 [facility] [address] [place] [address] ADULT; ELDER ELDER PER 15 CARE CARE MINUTES DAY CARE S5100 [facility] [address] [place] [address] ADULT; ELDER ELDER PER 15 CARE CARE MINUTES DAY CARE S[address] ADULT; ELDER ELDER PER 15 CARE CARE MINUTES DAY CARE S[address] ADULT; ELDER ELDER PER 15 CARE CARE MINUTES DAY CARE S[address] ADULT; ELDER ELDER PER 15 CARE CARE MINUTES DAY CARE S[address] ADULT; ELDER ELDER PER 15 CARE CARE MINUTES DAY CARE S[address] ADULT; ELDER ELDER PER 15 CARE CARE MINUTES DAY CARE S[address] ADULT; ELDER ELDER PER 15 CARE CARE MINUTES DAY CARE S[address] ADULT; ELDER ELDER PER 15 CARE CARE MINUTES DAY CARE S5100 [facility] [address] [place] [address] ADULT; ELDER ELDER PER 15 CARE CARE MINUTES DAY CARE S5100 [facility] [address] [place] [address] ADULT; ELDER ELDER PER 15 CARE CARE MINUTES SUSCEPTIB 37212 LAB [facility] LTY STDY 9 AMERIC AMERIC ANTIMICRB HOLDING HOLDING IAL MICRO/AGA R DILUTJ CUL BACT 94399 LAB [facility] AEROBIC 9 AMERIC [employer] ADDL HOLDING HOLDING METHS DEFINITIV E EA ISOL CULTURE 26843 LAB AN[facility] LAB ANIK[facility] BACTERIAL 9 [employer]IC [employer] HOLDING HOLDING QUANTTATI VE COLONY COUNT URINE CULTURE 08365 LAB [facility] ANIK[facility] BCT 9 AMERIC AMERIC ISOL&PRSM HOLDING HOLDING PTV ID ISOLATE EA URINE DAY CARE S[address] ADULT; ELDER ELDER PER 15 CARE CARE MINUTES URINLS 30409 Mary HANDY DIP 9 LEANDRA Messer STICK/TAB PSC LET REAGNT NON-AUTO MICRSCPY DAY CARE S[address] ADULT; ELDER ELDER PER 15 CARE CARE MINUTES DAY CARE S[address] ADULT; ELDER ELDER PER 15 CARE CARE MINUTES DAY CARE S[address] ADULT; ELDER ELDER PER 15 CARE CARE MINUTES CERVICAL L0172 PROSTHETI PROSTHETI COLLAR 9 C&ORTHOTI C&ORTHOTI SEMI-RIGI C C D FOAM ASSOCIATE ASSOCIATE TWO Personal On Demand SFrazr S,LLC PREFAB DAY CARE S[address] ADULT; ELDER ELDER PER 15 CARE CARE MINUTES DAY CARE S[address] ADULT; ELDER ELDER PER 15 CARE CARE MINUTES TRAPEZE E0940 YOSELYN TOPETE BAR 9 HOME MED HOME MED FREESTAND EQUIP. EQUIP. [facility] COMPLETE WITH GRAB BAR HOS BED E0260 YOSELYN TOPETE SEMI-ELEC 9 HOME MED HOME MED W/ANY EQUIP. EQUIP. TYPE SIDE [facility] RAIL W/MATTRSS ADLT SZD T4528 [facility] 9 HOME HOME INCONT HEALTH HEALTH PROD AGENCY AGENCY UNDWEAR XTRA LG EA DAY CARE S[address] ADULT; ELDER ELDER PER 15 CARE CARE MINUTES DAY CARE S[address] ADULT; ELDER ELDER PER 15 CARE CARE MINUTES DAY CARE S[address] ADULT; ELDER ELDER PER 15 CARE CARE MINUTES DAY CARE S[address] ADULT; ELDER ELDER PER 15 CARE CARE MINUTES DAY CARE S[address] ADULT; ELDER ELDER PER 15 CARE CARE MINUTES URINLS 47910 A Ayde MOBLEY, A DIP 9 LEANDRA WHITESIDE C STICK/TAB PSC LET REAGNT NON-AUTO MICRSCPY INTERMIT A4351 OUMARWILLY OSEGUERA NATHEN 9 [facility] CATH; E CENTERS E CENTERS STRAIGHT TIP W/WO COAT EA DAY CARE S[address] ADULT; ELDER ELDER PER 15 CARE CARE MINUTES DAY CARE S[address] ADULT; ELDER ELDER PER 15 CARE CARE MINUTES DAY CARE S[address] ADULT; ELDER ELDER PER 15 CARE CARE MINUTES DAY CARE S[address] ADULT; ELDER ELDER PER 15 CARE CARE MINUTES DAY CARE S[address] ADULT; ELDER ELDER PER 15 CARE CARE MINUTES DAY CARE S[address] ADULT; ELDER ELDER PER 15 CARE CARE MINUTES DAY CARE S[address] ADULT; ELDER ELDER PER 15 CARE CARE MINUTES CUL BACT 68192 LAB AN[facility] LAB ANIK[facility] AEROBIC 9 [employer]IC [employer] ADDL HOLDING HOLDING METHS DEFINITIV E EA ISOL SUSCEPTIB 60333 LAB ANIK[facility] LAB ANIKA LTY STDY 9 AMERIC AMERIC ANTIMICRB HOLDING HOLDING IAL MICRO/AGA R DILUTJ URINLS 76051 A Ayde MOBLEY A DIP 9 LEANDRA Messer STICK/TAB PSC LET REAGNT NON-AUTO MICRSCPY CULTURE 67283 LAB ANIK[facility] LAB ANIKA BACTERIAL 9 AMERIC [employer] HOLDING HOLDING QUANTTATI VE COLONY COUNT URINE CULTURE 15166 LAB ANIK[facility] LAB ANIKA BCT 9 AMERIC AMERIC ISOL&PRSM HOLDING HOLDING PTV ID ISOLATE EA URINE TRAPEZE E0940 YOSELYN SCHROEDER 9 HOME MED HOME MED FREESTAND EQUIP. EQUIP. [facility] COMPLETE WITH GRAB BAR HOS BED E0260 YOSELYN TOPETE SEMI-ELEC 9 HOME MED HOME MED W/ANY EQUIP. EQUIP. TYPE SIDE [facility] RAIL W/MATTRSS DAY CARE S[address] ADULT; ELDER ELDER PER 15 CARE CARE MINUTES DAY CARE S[address] ADULT; ELDER ELDER PER 15 CARE CARE MINUTES DAY CARE S[address] ADULT; ELDER ELDER PER 15 CARE CARE MINUTES DAY CARE S[address] ADULT; ELDER ELDER PER 15 CARE CARE MINUTES DAY CARE S[address] ADULT; ELDER ELDER PER 15 CARE CARE MINUTES DAY CARE S[address] ADULT; ELDER ELDER PER 15 CARE CARE MINUTES DAY CARE S[address] ADULT; ELDER ELDER PER 15 CARE CARE MINUTES INTERMIT A4351 OUMAR SENA 9 [facility] CATH; E CENTERS E CENTERS STRAIGHT TIP W/WO COAT EA DAY CARE S[address] ADULT; ELDER ELDER PER 15 CARE CARE MINUTES DAY CARE S[address] ADULT; ELDER ELDER PER 15 CARE CARE MINUTES ADLT SZD T4528 [facility] 9 HOME HOME [facility] HEALTH PROD AGENCY AGENCY UNDWEAR XTRA LG EA DAY CARE S[address] ADULT; ELDER ELDER PER 15 [...] HOME BLD GLU MON-50 DAY CARE S[address] ADULT; ELDER ELDER PER 15 CARE CARE MINUTES DAY CARE S[address] ADULT; ELDER ELDER PER 15 CARE CARE MINUTES DAY CARE S[address] ADULT; ELDER ELDER PER 15 CARE CARE MINUTES CULTURE 43597 LAB ANIK[facility] LAB ANIKA BCT 8 AMERIC AMERIC ISOL&PRSM HOLDING HOLDING PTV ID ISOLATE EA URINE DAY CARE S[address] ADULT; ELDER ELDER PER 15 CARE CARE MINUTES SUSCEPTIB 16308 LAB ANIK[facility] LAB ANIKA LTY STDY 8 AMERIC AMERIC ANTIMICRB HOLDING HOLDING IAL MICRO/AGA R DILUTJ CUL BACT 09760 LAB ANIK[facility] LAB ANIKA AEROBIC 8 AMERIC AMERIC ADDL HOLDING HOLDING METHS DEFINITIV E EA ISOL CULTURE 43794 LAB ANIKA LAB ANIKA BACTERIAL 8 AMERIC [employer] HOLDING HOLDING QUANTTATI VE COLONY COUNT URINE DAY CARE S[address] ADULT; ELDER ELDER PER 15 CARE CARE MINUTES TRAPEZE E0940 YOSELYN TOPETE BAR 8 HOME MED HOME MED FREESTAND EQUIP. EQUIP. ING [facility] COMPLETE WITH GRAB BAR HOS BED E0260 YOSELYN TOPETE SEMI-ELEC 8 HOME MED HOME MED W/ANY EQUIP. EQUIP. TYPE SIDE [facility] RAIL W/MATTRSS DAY CARE S[address] ADULT; ELDER ELDER PER 15 CARE CARE MINUTES DAY CARE S[address] ADULT; ELDER ELDER PER 15 CARE CARE MINUTES DAY CARE S[address] ADULT; ELDER ELDER PER 15 CARE CARE MINUTES DAY CARE S[address] ADULT; ELDER ELDER PER 15 CARE CARE MINUTES DAY CARE S[address] ADULT; ELDER ELDER PER 15 CARE CARE MINUTES DAY CARE S[address] ADULT; ELDER ELDER PER 15 CARE CARE MINUTES DAY CARE S[address] ADULT; ELDER ELDER PER 15 CARE CARE MINUTES DAY CARE S[address] ADULT; ELDER ELDER PER 15 CARE CARE MINUTES DAY CARE S[address] ADULT; ELDER ELDER PER 15 CARE CARE MINUTES INTERMIT A4351 OUMAR SENA 8 [facility] CATH; E CENTERS E CENTERS STRAIGHT TIP W/WO COAT EA DAY CARE S[address] ADULT; ELDER ELDER PER 15 CARE CARE MINUTES DAY CARE S5100 [facility] [address] [place] [address] ADULT; ELDER ELDER PER 15 CARE CARE MINUTES DAY CARE S5100 [facility] [address] [place] [address] ADULT; ELDER ELDER PER 15 CARE CARE MINUTES DAY CARE S5100 [facility] [address] [place] [address] ADULT; ELDER ELDER PER 15 CARE CARE MINUTES DAY CARE S5100 [facility] [address] [place] [address] ADULT; ELDER ELDER PER 15 CARE CARE MINUTES TRAPEZE E0940 YOSELYN TOPETE BAR 8 HOME MED HOME MED FREESTAND EQUIP. EQUIP. ING [facility] COMPLETE WITH GRAB BAR HOS BED E0260 YOSELYN TOPETE SEMI-ELEC 8 HOME MED HOME MED W/ANY EQUIP. EQUIP. TYPE SIDE [facility] RAIL W/MATTRSS DAY CARE S5100 [facility] [address] [place] [address] ADULT; ELDER ELDER PER 15 CARE CARE MINUTES DAY CARE S[address] ADULT; ELDER ELDER PER 15 CARE CARE MINUTES DAY CARE S[address] ADULT; ELDER ELDER PER 15 CARE CARE MINUTES DAY CARE S[address] ADULT; ELDER ELDER PER 15 CARE CARE MINUTES DAY CARE S[address] ADULT; ELDER ELDER PER 15 CARE CARE MINUTES ADLT SZD T4528 [facility] 8 HOME HOME [facility] HEALTH HEALTH PROD AGENCY AGENCY UNDWEAR XTRA LG EA DAY CARE S5100 [facility] [address] [place] [address] ADULT; ELDER ELDER PER 15 CARE CARE MINUTES DAY CARE S5100 [facility] [address] [place] [address] ADULT; ELDER ELDER PER 15 CARE CARE MINUTES DAY CARE S5100 [facility] [address] [place] [address] ADULT; ELDER ELDER PER 15 CARE CARE MINUTES DAY CARE S5100 [facility] [address] [place] [address] ADULT; ELDER ELDER PER 15 CARE CARE MINUTES DAY CARE S5100 [facility] [address] [place] [address] ADULT; ELDER ELDER PER 15 CARE CARE MINUTES DAY CARE S[address] ADULT; ELDER ELDER PER 15 CARE CARE MINUTES URINLS 92430 Mary HANDY 8 LEANDRA Messer STICK/TAB PSC LET REAGNT NON-AUTO MICRSCPY IIV3 90052 RAMANDEEP SABILLON VACCINE [address] [place] [address] SPLIT CENTER CENTER VIRUS 0.5 ML DOSAGE IM USE DAY CARE S[address] ADULT; ELDER ELDER PER 15 CARE CARE MINUTES ADMINISTR G0008 RAMANDEEP SABILLON ATION OF 8 [facility] CENTER VIRUS VACCINE DAY CARE S[address] ADULT; ELDER ELDER PER 15 CARE CARE MINUTES DAY CARE S[address] ADULT; ELDER ELDER PER 15 CARE CARE MINUTES DAY CARE S[address] ADULT; ELDER ELDER PER 15 CARE CARE MINUTES DAY CARE S[address] ADULT; ELDER ELDER PER 15 CARE CARE MINUTES DAY CARE S[address] ADULT; ELDER ELDER PER 15 CARE CARE MINUTES DAY CARE S[address] ADULT; ELDER ELDER PER 15 CARE CARE MINUTES CULTURE 74831 LAB ANIKA LAB ANIKA BCT 8 AMERIC AMERIC ISOL&PRSM HOLDING HOLDING PTV ID ISOLATE EA URINE CULTURE 62502 LAB ANIK[facility] LAB ANIKA BACTERIAL 8 AMERIC AMERIC HOLDING HOLDING QUANTTATI VE COLONY COUNT URINE SUSCEPTIB 05618 LAB ANIK[facility] LAB ANIKA LTY STDY 8 AMERIC AMERIC ANTIMICRB HOLDING HOLDING IAL MICRO/AGA R DILUTJ CUL BACT 08854 LAB ANIKA LAB ANIKA AEROBIC 8 AMERIC AMERIC ADDL HOLDING HOLDING METHS DEFINITIV E EA ISOL TRAPEZE E0940 YOSELYN SCHROEDER 8 HOME MED HOME MED FREESTAND EQUIP. EQUIP. [facility] COMPLETE WITH GRAB BAR HOS BED E0260 YOSELYN TOPETE SEMI-ELEC 8 HOME MED HOME MED W/ANY EQUIP. EQUIP. TYPE SIDE [facility] RAIL W/MATTRSS INTERMIT A4351 OUMAR OUMAR URIN 8 [facility]ALTH[facility] HEALTHCAR CATH; E CENTERS E CENTERS STRAIGHT TIP W/WO COAT EA DAY CARE S[address] ADULT; ELDER ELDER PER 15 CARE CARE MINUTES DAY CARE S[address] ADULT; ELDER ELDER PER 15 CARE CARE MINUTES DAY CARE S[address] ADULT; ELDER ELDER PER 15 CARE CARE MINUTES DAY CARE S[address] ADULT; ELDER ELDER PER 15 CARE CARE MINUTES DAY CARE S[address] ADULT; ELDER ELDER PER 15 CARE CARE MINUTES DAY CARE S[address] ADULT; ELDER ELDER PER 15 CARE CARE MINUTES DAY CARE S[address] ADULT; ELDER ELDER PER 15 CARE CARE MINUTES DAY CARE S[address] ADULT; ELDER ELDER PER 15 CARE CARE MINUTES DAY CARE S[address] ADULT; ELDER ELDER PER 15 CARE CARE MINUTES ADLT SZD T4528 [facility] 8 HOME HOME [facility] PROD AGENCY AGENCY UNDWEAR XTRA LG [...] SUPPLIES SUPPLIES OF 100 DAY CARE S[address] ADULT; ELDER ELDER PER 15 CARE CARE MINUTES DAY CARE S[address] ADULT; ELDER ELDER PER 15 CARE CARE MINUTES DAY CARE S[address] ADULT; ELDER ELDER PER 15 CARE CARE MINUTES DAY CARE S[address] ADULT; ELDER ELDER PER 15 CARE CARE MINUTES DAY CARE S5100 [facility] [address] [place] [address] ADULT; ELDER ELDER PER 15 CARE CARE MINUTES DAY CARE S5100 [facility] [address] [place] [address] ADULT; ELDER ELDER PER 15 CARE CARE MINUTES DAY CARE S5100 [facility] [address] [place] [address] ADULT; ELDER ELDER PER 15 CARE CARE MINUTES DAY CARE S5100 [facility] [address] [place] [address] ADULT; ELDER ELDER PER 15 CARE CARE MINUTES DAY CARE S5100 [facility] [address] [place] [address] ADULT; ELDER ELDER PER 15 CARE CARE MINUTES DAY CARE S5100 [facility] [address] [place] [address] ADULT; ELDER ELDER PER 15 CARE CARE MINUTES DAY CARE S5100 [facility] [address] [place] [address] ADULT; ELDER ELDER PER 15 CARE CARE MINUTES DAY CARE S5100 [facility] [address] [place] [address] ADULT; ELDER ELDER PER 15 CARE CARE MINUTES DAY CARE S5100 [address] ADULT; ELDER ELDER PER 15 CARE CARE MINUTES DAY CARE S5100 [facility] [address] [place] [address] ADULT; ELDER ELDER PER 15 CARE CARE MINUTES DAY CARE S5100 [facility] [address] [place] [address] ADULT; ELDER ELDER PER 15 CARE CARE MINUTES DAY CARE S5100 [facility] [address] [place] [address] ADULT; ELDER ELDER PER 15 CARE CARE MINUTES DAY CARE S[address] ADULT; ELDER ELDER PER 15 CARE CARE MINUTES DAY CARE S5100 [facility] [address] [place] [address] ADULT; ELDER ELDER PER 15 CARE CARE MINUTES DAY CARE S5100 [facility] [address] [place] [address] ADULT; ELDER ELDER PER 15 CARE CARE MINUTES DAY CARE S5100 [facility] [address] [place] [address] ADULT; ELDER ELDER PER 15 CARE CARE MINUTES DAY CARE S5100 [facility] [address] [place] [address] ADULT; ELDER ELDER PER 15 CARE CARE MINUTES DAY CARE S5100 [facility] [address] [place] [address] ADULT; ELDER ELDER PER 15 CARE CARE MINUTES [facility] [address] ROBER, ROBER, MEDICAL 8 KIT A KIT A XM&EVAL COMPRE NEW PT 1/> VST DAY CARE S5100 [facility] [address] [place] [address] ADULT; ELDER ELDER PER 15 CARE CARE MINUTES TRAPEZE E0940 YOSELYNKAY SCHROEDER 8 HOME MED HOME MED FREESTAND EQUIP. EQUIP. [facility] COMPLETE WITH [facility]OS BED E0260 YOSELYN YOSELYN SEMI-ELEC 8 HOME MED HOME MED W/ANY EQUIP. EQUIP. TYPE SIDE [facility] RAIL W/MATTRSS DAY CARE S5100 [facility] [address] [place] [address] ADULT; ELDER ELDER PER 15 CARE CARE MINUTES DAY CARE S5100 [facility] [address] [place] [address] ADULT; ELDER ELDER PER 15 CARE CARE MINUTES DAY CARE S5100 [facility] [address] [place] [address] ADULT; ELDER ELDER PER 15 CARE CARE MINUTES DAY CARE S5100 [facility] [address] [place] [address] ADULT; ELDER ELDER PER 15 CARE CARE MINUTES DAY CARE S5100 [facility] [address] [place] [address] ADULT; ELDER ELDER PER 15 CARE CARE MINUTES DAY CARE S5100 [facility] [address] [place] [address] ADULT; ELDER ELDER PER 15 CARE CARE MINUTES DAY CARE S5100 [facility] [address] [place] [address] ADULT; ELDER ELDER PER 15 CARE CARE MINUTES INTERMIT [id number] OUMAR SENA 8 [facility] CATH; E CENTERS E CENTERS STRAIGHT TIP W/WO COAT EA DAY CARE S5100 [facility] [address] [place] [address] ADULT; ELDER ELDER PER 15 CARE CARE MINUTES DAY CARE S5100 [facility] [address] [place] [address] ADULT; ELDER ELDER PER 15 CARE CARE MINUTES DAY CARE S5100 [facility] [address] [place] [address] ADULT; ELDER ELDER PER 15 CARE CARE MINUTES DAY CARE S5100 [facility] [address] [place] [address] ADULT; ELDER ELDER PER 15 CARE CARE MINUTES DAY CARE S5100 [facility] [address] [place] [address] ADULT; ELDER ELDER PER 15 CARE CARE MINUTES DAY CARE S5100 [facility] [address] [place] [address] ADULT; ELDER ELDER PER 15 CARE CARE MINUTES DAY CARE S5100 [facility] [address] [place] [address] ADULT; ELDER ELDER PER 15 CARE CARE MINUTES ADLT SZD [id number] [facility] 8 HOME HOME INCONT HEALTH HEALTH PROD AGENCY AGENCY UNDWEAR XTRA LG EA INCONTINE T4541 [facility] NCE 8 HOME HOME PRODUCT HEALTH HEALTH DISPOSABL AGENCY AGENCY E UNDPAD LARGE EA DAY CARE S5100 [facility] [address] [place] [address] ADULT; ELDER ELDER PER 15 CARE CARE MINUTES DAY CARE S5100 [facility] [address] [place] [address] ADULT; ELDER ELDER PER 15 CARE CARE MINUTES DAY CARE S5100 [facility] [address] [place] [address] ADULT; ELDER ELDER PER 15 CARE CARE MINUTES TRAPEZE E0940 YOSELYN TOPETE BAR 8 HOME MED HOME MED FREESTAND EQUIP. EQUIP. ING [facility] COMPLETE WITH [facility]ED E0260 YOSELYN TOPETE SEMI-ELEC 8 HOME MED HOME MED W/ANY EQUIP. EQUIP. TYPE SIDE [facility] RAIL W/MATTRSS DAY CARE S5100 [facility] [address] [place] [address] ADULT; ELDER ELDER PER 15 CARE CARE MINUTES DAY CARE S5100 [facility] [address] [place] [address] ADULT; ELDER ELDER PER 15 CARE CARE MINUTES DAY CARE S5100 [facility] [address] [place] [address] ADULT; ELDER ELDER PER 15 CARE CARE MINUTES PROTHROMB 47240 [facility] IN TIME 8 [facility] INC INC DRUG 24542 [facility] ASSAY 8 [facility] VALPROIC INC INC DIPROPYLA CETIC ACID TOTAL 3D 52329 [place], RENDERING 8 MEDICAL YONY P IMAGING W/INTERP& ASSOCIATE [place] [id number] [facility] THER 8 [facility] PROPH/DX INC INC 1ST >1 HR CREATINE 30734 [facility] KINASE 8 [facility] TOTAL INC INC ECG 43518 [facility] ROUTINE 8 [facility] ECG INC INC W/LEAST 12 LDS TRCG ONLY W/O I&R GROUND A0425 [facility] 8 AMBULANCE [place]UL[place] [address] JAYLENE BURRIS, HEAD/BRAI 8 MEDICAL YONY P N W/O IMAGING CONTRAST ASSOCIATE MATERIAL S AMB [id number] [facility] SERVICE 8 AMBULANCE AMBULANCE ALS SERVICE SERVICE EMERGENCY TRANSPORT LEVEL 1 THROMBOPL 19152 [facility] S[facility]ILLON ASTIN 8 [facility] TIME INC INC PARTIAL PLASMA/WH OLE BLOOD COMPREHEN 38666 [facility] SABILLON SIVE 8 [facility] METABOLIC INC INC PANEL CREATINE 50398 [facility] SABILLON KINASE MB 8 [facility] FRACTION INC INC ONLY ECG 54637 RAM[facility]EP ARLYN, ROUTINE 8 [facility] W/LEAST PROF SERV 12 LDS [place] [address] RAM[facility]DEEP SABILLON TROPONIN 8 [facility] QUANTITAT INC INC TAYLER BLOOD 69781 RAM[facility]DEEP SABILLON COUNT 8 [facility] COMPLETE INC INC AUTO&AUTO DIFRNTL WBC DAY CARE S[address] ADULT; ELDER ELDER PER 15 CARE CARE MINUTES DAY CARE S5100 RAMAN[facility] [address] ADULT; ELDER ELDER PER 15 CARE CARE MINUTES DAY CARE S[address] ADULT; ELDER ELDER PER 15 CARE CARE MINUTES DAY CARE S[address] ADULT; ELDER ELDER PER 15 CARE CARE MINUTES BLD GLU A4253 M E D M E D TEST/REAG 8 SUPPLIES SUPPLIES T STRIPS HOME BLD GLU MON-50 DAY CARE S5100 [facility] [address] ADULT; ELDER ELDER PER 15 CARE CARE MINUTES DAY CARE S[address] ADULT; ELDER ELDER PER 15 CARE CARE MINUTES TRAPEZE E0940 YOSELYN SCHROEDER 8 HOME MED HOME MED FREESTAND EQUIP. EQUIP. ING [facility] COMPLETE WITH ART SCHROEDER HOS BED E0260 YOSELYN TOPETE SEMI-ELEC 8 HOME MED HOME MED W/ANY EQUIP. EQUIP. TYPE SIDE [facility] RAIL W/MATTRSS DAY CARE S5[address] ADULT; ELDER ELDER PER 15 CARE CARE MINUTES DAY CARE S[address] ADULT; ELDER ELDER PER 15 CARE CARE MINUTES DAY CARE S[address] ADULT; ELDER ELDER PER 15 CARE CARE MINUTES MEDICAL 50649 DHS/CO RAMANDEEP [address] ASSMT&IVN BANK ACCT TJ INDIV EACH 15 [place] DAY CARE S[address] ADULT; ELDER ELDER PER 15 CARE CARE MINUTES DAY CARE S5[address] ADULT; ELDER ELDER PER 15 CARE CARE MINUTES ADLT SZD T4528 [facility] 8 HOME HOME INCONT HEALTH HEALTH PROD AGENCY AGENCY UNDWEAR XTRA LG EA DAY CARE S[address] ADULT; ELDER ELDER PER 15 CARE CARE MINUTES DAY CARE S5[address] ADULT; ELDER ELDER PER 15 CARE CARE MINUTES DAY CARE S[address] ADULT; ELDER ELDER PER 15 CARE CARE MINUTES DAY CARE S[address] ADULT; ELDER ELDER PER 15 CARE CARE MINUTES TRAPEZE E0940 YOSELYN SCHROEDER 8 HOME MED HOME MED FREESTAND EQUIP. EQUIP. [facility] COMPLETE WITH [facility] HOS BED E0260 YOSELYN TOPETE SEMI-ELEC 8 HOME MED HOME MED W/ANY EQUIP. EQUIP. TYPE SIDE [facility] RAIL W/MATTRSS DAY CARE S[address] ADULT; ELDER ELDER PER 15 CARE CARE MINUTES DAY CARE S5[address] ADULT; ELDER ELDER PER 15 CARE CARE MINUTES DAY CARE S5[address] ADULT; ELDER ELDER PER 15 CARE CARE MINUTES DAY CARE S[address] ADULT; ELDER ELDER PER 15 CARE CARE MINUTES DAY CARE S5[address] ADULT; ELDER ELDER PER 15 CARE CARE MINUTES DAY CARE S5[address] ADULT; ELDER ELDER PER 15 CARE CARE MINUTES DAY CARE S5[address] ADULT; ELDER ELDER PER 15 CARE CARE MINUTES INTERMIT A4351 [facility] SENA [facility] CATH; E CENTERS E CENTERS STRAIGHT TIP W/WO COAT EA DAY CARE S5[address] ADULT; ELDER ELDER PER 15 CARE CARE MINUTES DAY CARE S5100 [facility] [address] [place] [address] ADULT; ELDER ELDER PER 15 CARE CARE MINUTES DAY CARE S5100 [facility] [address] [place] [address] ADULT; ELDER ELDER PER 15 CARE CARE MINUTES DAY CARE S[address] ADULT; ELDER ELDER PER 15 CARE CARE MINUTES DAY CARE S[address] ADULT; ELDER ELDER PER 15 CARE CARE MINUTES DAY CARE S5[address] ADULT; ELDER ELDER PER 15 CARE CARE MINUTES DAY CARE S[address] ADULT; ELDER ELDER PER 15 CARE CARE MINUTES DAY CARE S[address] ADULT; ELDER ELDER PER 15 CARE CARE MINUTES DAY CARE S[address] ADULT; ELDER ELDER PER 15 CARE CARE MINUTES DAY CARE S[address] ADULT; ELDER ELDER PER 15 CARE CARE MINUTES DAY CARE S5[address] ADULT; ELDER ELDER PER 15 CARE CARE MINUTES DAY CARE S[address] ADULT; ELDER ELDER PER 15 CARE CARE MINUTES DAY CARE S[address] ADULT; ELDER ELDER PER 15 CARE CARE MINUTES TRAPEZE E0940 YOSELYN SCHROEDER 8 HOME MED HOME MED FREESTAND EQUIP. EQUIP. ING [facility] COMPLETE WITH GRAB [facility] HOS BED E0260 YOSELYN TOPETE SEMI-ELEC 8 HOME MED HOME MED W/ANY EQUIP. EQUIP. TYPE SIDE [facility] RAIL W/MATTRSS AIR PRESS E0197 YOSELYN YOSELYN PAD 8 HOME MED HOME MED MATTRSS EQUIP. EQUIP. [employer] MATTRSS LENGTH&WI DT DAY CARE S[address] ADULT; ELDER ELDER PER 15 CARE CARE MINUTES DAY CARE S[address] ADULT; ELDER ELDER PER 15 CARE CARE MINUTES DAY CARE S5[address] ADULT; ELDER ELDER PER 15 CARE CARE MINUTES DAY CARE S5[address] ADULT; ELDER ELDER PER 15 CARE CARE MINUTES DAY CARE S[address] ADULT; ELDER ELDER PER 15 CARE CARE MINUTES DAY CARE S[address] ADULT; ELDER ELDER PER 15 CARE CARE MINUTES DAY CARE S5[address] ADULT; ELDER ELDER PER 15 CARE CARE MINUTES ADLT SZD T4528 [facility] 8 HOME HOME [facility] PROD AGENCY AGENCY UNDWEAR XTRA LG EA DAY CARE S[address] ADULT; ELDER ELDER PER 15 CARE CARE MINUTES DAY CARE S5[address] ADULT; ELDER ELDER PER 15 CARE CARE MINUTES DAY CARE S5[address] ADULT; ELDER ELDER PER 15 CARE CARE MINUTES BLD GLU A4253 M E D M E D TEST/REAG 8 SUPPLIES SUPPLIES T STRIPS HOME BLD GLU SAT-50 DAY CARE S5[address] ADULT; ELDER ELDER PER 15 CARE CARE MINUTES DAY CARE S5[address] ADULT; ELDER ELDER PER 15 CARE CARE MINUTES DAY CARE S5[address] ADULT; ELDER ELDER PER 15 CARE CARE MINUTES DAY CARE S5[address] ADULT; ELDER ELDER PER 15 CARE CARE MINUTES DAY CARE S[address] ADULT; ELDER ELDER PER 15 CARE CARE MINUTES DAY CARE S[address] ADULT; ELDER ELDER PER 15 CARE CARE MINUTES DAY CARE S5100 [facility] [address] [place] [address] ADULT; ELDER ELDER PER 15 CARE CARE MINUTES DAY CARE S5100 RAMANDEEP [employer] [address] [place] [address] ADULT; ELDER ELDER PER 15 CARE CARE MINUTES DAY CARE S5100 RAMANDEEP [facility] [address] [place] [address] ADULT; ELDER ELDER PER 15 CARE CARE MINUTES DAY CARE S5100 RAMANDEEP [employer] [address] [place] [address] ADULT; ELDER ELDER PER 15 CARE CARE MINUTES INTERMIT A4351 OUMAR SENA 8 [facility] CATH; E CENTERS E CENTERS STRAIGHT TIP W/WO COAT EA DAY CARE S5100 RAMANDEEP RAM[facility]EP [facility] [address] [place] [address] ADULT; ELDER ELDER PER 15 CARE CARE MINUTES DAY CARE S5100 RAMANDEEP [facility] [address] [place] [address] ADULT; ELDER ELDER PER 15 CARE CARE MINUTES DAY CARE S5100 RAMANDEEP RAMANDEEP [address] ADULT; ELDER ELDER PER 15 CARE CARE MINUTES DAY CARE S5100 RAMANDEEP [employer] [address] [place] [address] ADULT; ELDER ELDER PER 15 CARE CARE MINUTES ADLT SZD T4528 [facility] 8 HOME HOME [facility] PROD AGENCY AGENCY UNDWEAR XTRA LG EA DAY CARE S5100 RAMANDEEP RAMANDEEP [address] ADULT; ELDER ELDER PER 15 CARE CARE MINUTES DAY CARE S5100 RAMANDEEP [employer] [address] [place] [address] ADULT; ELDER ELDER PER 15 CARE CARE MINUTES DAY CARE S5100 RAMANDEEP [employer] [address] [place] [address] ADULT; ELDER ELDER PER 15 CARE CARE MINUTES DAY CARE S5100 RAMANDEEP [employer] [address] [place] [address] ADULT; ELDER ELDER PER 15 CARE CARE MINUTES DAY CARE S5100 RAMANDEEP [employer] [address] [place] [address] ADULT; ELDER ELDER PER 15 CARE CARE MINUTES DAY CARE S5100 RAMANDEEP [employer] [address] [place] [address] ADULT; ELDER ELDER PER 15 CARE CARE MINUTES DAY CARE S5100 RAMANDEEP [employer] [address] [place] [address] ADULT; ELDER ELDER PER 15 CARE CARE MINUTES DAY CARE S5100 RAMANDEEP [employer] [address] [place] [address] ADULT; ELDER ELDER PER 15 CARE CARE MINUTES DAY CARE S5100 [address] ADULT; ELDER ELDER PER 15 CARE CARE MINUTES DAY CARE S5100 RAMANDEEP [facility] [address] [place] [address] ADULT; ELDER ELDER PER 15 CARE CARE MINUTES DAY CARE S5100 [facility] [address] [place] [address] ADULT; ELDER ELDER PER 15 CARE CARE MINUTES DAY CARE S5100 RAMANDEEP RAMANDEEP [address] ADULT; ELDER ELDER PER 15 CARE CARE MINUTES DAY CARE S[address] ADULT; ELDER ELDER PER 15 CARE CARE MINUTES DAY CARE S[address] ADULT; ELDER ELDER PER 15 CARE CARE MINUTES DAY CARE S5100 [address]EP [address] ADULT; ELDER ELDER PER 15 CARE CARE MINUTES DAY CARE S[address] ADULT; ELDER ELDER PER 15 CARE CARE MINUTES DAY CARE S5100 RAMANDEEP [address] ADULT; ELDER ELDER PER 15 CARE CARE MINUTES DAY CARE S[address] ADULT; ELDER ELDER PER 15 CARE CARE MINUTES DAY CARE S5100 RAMANDEEP [address] ADULT; ELDER ELDER PER 15 CARE CARE MINUTES INCONTINE T4541 [facility] 8 HOME HOME [facility] DISPOSABL AGENCY AGENCY E UNDPAD LARGE EA ADLT SZD T4528 [facility] 8 HOME HOME INCONT HEALTH HEALTH PROD AGENCY AGENCY UNDWEAR XTRA LG EA DAY CARE S[address] ADULT; ELDER ELDER PER 15 CARE CARE MINUTES DAY CARE S[address] ADULT; ELDER ELDER PER 15 CARE CARE MINUTES Encounters Encounter Start End Date Code Location Performer Type Date [facility] OUT[facility]IEN [facility] T [facility] RAM[facility]EP - 0 0 [facility]EN [facility] T HOME [facility], 0 0 DIST OTHER HEALTH 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[facility] 0 0 DIST OTHER HEALTH 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[facility], 0 0 HOME OUTPATIEN HEALTH T AGENCY HOME [facility], 0 0 DIST OTHER HEALTH 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 50037 CHASE GALARZAPATIEN 9 9 LEANDRA Hernandez T VISIT PSC 15 MINUTES OFFICE 60093 CHASE MCGREGORPATIJOSE FRANCISCO 9 9 LEANDRA PETIT T VISIT 5 PSC MINUTES HOME [facility], 9 9 DIST OTHER HEALTH 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[facility], 9 9 HOME OUTPATIEN HEALTH T AGENCY OFFICE 75182 TERRY RUIZ 9 9 [facility] T VISIT SERV 15 FOUNDATIO MINUTES HOME [facility], 9 9 DIST OTHER HEALTH 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[facility], 9 9 HOME OUTPATIEN HEALTH T [facility] RAMANDEEP - 9 9 [facility] OUTPATIEN INC T HOME [facility], 9 9 DIST OTHER HEALTH 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 20637 TIM SCHULTE, CONSULTBERTRAND 9 9 MEDICAL NILDA ION SERV NEW/ESTAB FOUNDATIO PATIENT 60 MIN HOME [facility], 9 9 DIST OTHER HEALTH 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 37063 Mary HANDYPATIEN 9 9 LEANDRA Rhodes VISIT PSC 15 MINUTES OFFICE 96517 Mary HANDYPATIEN 9 9 LEANDRA Messer T VISIT PSC 15 MINUTES HOME [facility], 9 9 DIST OTHER HEALTH 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[facility], 9 9 HOME OUTPATIEN HEALTH T [facility] RAMANDEEP - 9 9 [facility] OUTPATIEN INC T HOME [facility], 9 9 DIST OTHER HEALTH 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[facility], 9 9 DIST OTHER HEALTH 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[facility], 9 9 HOME OUTPATIEN HEALTH T AGENCY OFFICE 61504 Mary MANLEY OUTPATIEN 9 9 LEANDRA Hernandez T VISIT PSC 15 MINUTES HOME [facility], 9 9 DIST OTHER HEALTH 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 19199 Mary ALMANZAR OUTPATIEN 9 9 LEANDRA PETIT T VISIT 5 PSC MINUTES OFFICE 23801 Mary MANLEY OUTPATIEN 9 9 LEANDRA Hernandez T VISIT PSC 15 MINUTES HOME [facility], 9 9 DIST OTHER HEALTH 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[facility], 9 9 HOME OUTPATIEN HEALTH T AGENCY OFFICE 72427 DHS/CO RAMANDEEP OUTPATIEN 9 9 HEALTH CO HEALTH T V[facility]IT [facility] 15 BANK ACCT MINUTES HOME [facility], 9 9 DIST OTHER HEALTH 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[facility], 9 9 DIST OTHER HEALTH 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 13879 Mary HANDY OUTPATIEN 9 9 LEANDRA Messer T VISIT PSC 15 MINUTES HOME [facility], 9 9 HOME OUTPATIEN HEALTH T AGENCY HOME [facility], 9 9 DIST OTHER HEALTH 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 45288 Mary HANDY OUTPATIEN 9 9 LEANDRA Messer T VISIT 5 PSC MINUTES HOME [facility], 9 9 HOME OUTPATIEN HEALTH T AGENCY HOME [facility], 9 9 DIST OTHER HEALTH 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[facility], 9 9 DIST OTHER HEALTH 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 96221 Mary HANDY OUTPATIEN 9 9 LEANDRA Rhodes VISIT 5 PSC MINUTES HOME [facility], 9 9 HOME OUTPATIEN HEALTH T AGENCY OFFICE 81166 Mary HANDY OUTPATIEN 9 9 LEANDRA Rhodes VISIT PSC 15 MINUTES OFFICE 75320 Mary HANDY OUTPATIEN 9 9 LEANDRA Rhodes VISIT 5 PSC MINUTES HOME [facility], 9 9 DIST OTHER HEALTH 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 97770 Mary HANDY OUTPATIEN 9 9 LEANDRA Rhodes VISIT 5 PSC MINUTES HOME [facility], 9 9 DIST OTHER HEALTH 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[facility], 9 9 HOME OUTPATIEN HEALTH T AGENCY HOME [facility], 8 8 DIST OTHER HEALTH 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 09326 Mary HANDY OUTPATIEN 8 8 LEANDRA Rhodes VISIT 5 PSC MINUTES HOME [facility], 8 8 DIST OTHER HEALTH 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[facility], 8 8 DIST OTHER HEALTH 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[facility], 8 8 HOME OUTPATIEN HEALTH T AGENCY OFFICE 63267 Mary HANDY OUTPATIEN 8 8 LEANDRA Rhodes VISIT PSC 15 MINUTES EMERGENCY 89996 [facility]EP 8 8 [facility] DEPARTMEN INC T VISIT HIGH/URGE NT SEVERITY EMERGENCY 51695 JEEVAN ORTIZ, 8 8 [facility] DEPARTMEN CORPORATI O T VISIT ON MODERATE SEVERITY HOSPITAL RAMANDEEP - 8 8 [facility] OUTPATIEN INC T HOME [facility] 8 8 DIST OTHER HEALTH 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 20204 Mary HANDY OUTPATIEN 8 8 LEANDRA WHITESIDE C T VISIT [facility] 15 MINUTES HOME [facility], 8 8 DIST OTHER HEALTH 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
--- OUTSIDE RECORDS SUMMARY | 2016-12-16 19:58 | External Medical Summary Rpt ---
Demographics Preferred Language Estonian Marital Status Unknown Latter Day Affiliation Unknown Race Unknown Ethnic Group Unknown Author Author , Organization [employer] Address Unknown Phone Unavailable Purpose Continuity of Care Document - through 2016 Immunization No patient found.
--- OUTSIDE RECORDS SUMMARY | 2016-12-16 19:58 | External Medical Summary Rpt ---
Demographics Preferred Language Korean Marital Status Unknown Episcopal Affiliation Unknown Race Unknown Ethnic Group Unknown Author Author , Organization [employer] Address Unknown Phone Unavailable Purpose Continuity of Care Document - through 2016 Immunization No patient found.
== END 2016-12-15 11:29 | disposition home or self-care (01) ==
LOC: ER 13:56 → 2ND 17:59 → ER 17:59 → 2ND 18:02
PROVIDERS: Emergency Medicine; Internal Medicine Adolescent Medicine
DX: N39.0 Urinary tract infection, site not specified (principal); R33.9 Retention of urine, unspecified; Z86.73 Personal history of transient ischemic attack (TIA), and cerebral infarction without residual deficits; I10 Essential (primary) hypertension; E11.9 Type 2 diabetes mellitus without complications; Z79.01 Long term (current) use of anticoagulants; E55.9 Vitamin D deficiency, unspecified
CPT/HCPCS: G0378